=== PATIENT | female | born 1955 | race Caucasian/White ===

== ENCOUNTER 2023-06-03 10:30 | Outpatient (OUT) | payer MEDICARE, OTHER, SELFPAY ==
--- NOTE | 2023-06-03 10:33 | MM_ITS ---
Patient Name: KEELY CHOPRA MR#: [id number] : 1955 Exam Date: 06/03/2023 Ordering Doctor: DR. NANCY SHELL . RADIOLOGY REPORT PROCEDURE: MM TOMOSYNTHESIS SCREENING BI COMPARISON: MG MAMM SCREEN 3D CARSON CAD, 05/07/2021. MG MAMM SCREEN 3D CARSON CAD, 05/12/2022. INDICATIONS: screening Calculator Name NCI Breast Cancer Risk Assessment Tool 5 Year Breast Cancer Risk 2.30% Lifetime Breast Cancer Risk 7.10% Personal Breast Cancer No Personal Ovarian Cancer No Treatments None Family Cancers Grandmother-maternal with breast cancer at age 80; Niece with liver cancer at age 6. LOCATION: [facility] BREAST COMPOSITION: Heterogeneously dense,which may obscure small masses. FINDINGS: DIAGNOSTIC CATEGORY 2--BENIGN FINDING. NO CHANGE FROM COMPARISON. Scattered benign-appearing calcifications are present. Scattered benign-appearing lymph nodes are present. RIGHT BREAST: No significant suspicious finding. LEFT BREAST: No significant suspicious finding. RECOMMENDATIONS: ROUTINE MAMMOGRAM AND CLINICAL EVALUATION IN 12 MONTHS. PLEASE NOTE: A NORMAL MAMMOGRAM DOES NOT EXCLUDE THE POSSIBILITY OF BREAST CANCER. A CLINICALLY SUSPICIOUS PALPABLE LUMP SHOULD BE BIOPSIED. Dictated by: Jaiden Rose MD on 06/03/2023 at 11:34 Approved by: Jaiden Rose MD on 06/03/2023 at 11:35
== END 2023-06-03 10:31 | disposition home or self-care (01) ==
LOC: MAMMO 10:31
PROVIDERS: PCP Nurse Practitioner; Visit Provider Family Medicine
DX: Z12.31 Encounter for screening mammogram for malignant neoplasm of breast (principal); Z80.8 Family history of malignant neoplasm of other organs or systems
CPT/HCPCS: 77063; 77067

== ENCOUNTER 2024-06-08 08:07 | Outpatient (OUT) | payer MEDICARE, OTHER, SELFPAY ==
--- NOTE | 2024-06-08 08:18 | MM_ITS ---
Patient Name: KEELY CHOPRA MR#: [id number] : 1955 Exam Date: 06/08/2024 Ordering Doctor: LE SAUER . RADIOLOGY REPORT PROCEDURE: MM TOMOSYNTHESIS SCREENING BI COMPARISON: MM TOMOSYNTHESIS SCREENING BI, 06/03/2023. MG MAMM SCREEN 3D CARSON CAD, 05/12/2022. MG MAMM SCREEN 3D CARSON CAD, 05/07/2021. MG MAMM CARSON SCRN W CAD DIG, 06/06/2013. INDICATIONS: Screening Calculator Name NCI Breast Cancer Risk Assessment Tool 5 Year Breast Cancer Risk 2.30% Lifetime Breast Cancer Risk 6.70% Personal Breast Cancer No Personal Ovarian Cancer No Treatments None Family Cancers Grandmother-maternal with breast cancer at age 80; Niece with liver cancer at age 6. LOCATION: [facility] BREAST COMPOSITION: The breasts are heterogeneously dense,which may obscure small masses. FINDINGS: DIAGNOSTIC CATEGORY 2--BENIGN FINDING: RIGHT BREAST: No significant suspicious finding. Scattered benign-appearing calcifications are present. No significant change has occurred. LEFT BREAST: No significant suspicious finding. Scattered benign-appearing calcifications are present. No significant change has occurred. RECOMMENDATIONS: ROUTINE MAMMOGRAM AND CLINICAL EVALUATION IN 12 MONTHS. PLEASE NOTE: A NORMAL MAMMOGRAM DOES NOT EXCLUDE THE POSSIBILITY OF BREAST CANCER. A CLINICALLY SUSPICIOUS PALPABLE LUMP SHOULD BE BIOPSIED. Dictated by: Scott Parkinson M.D. on 06/08/2024 at 14:38 Approved by: Scott Parkinson M.D. on 06/08/2024 at 14:47
--- OUTSIDE RECORDS SUMMARY | 2024-06-08 08:20 | XMS_ITS | CCD ---
Author Organization [facility] Care Team Providers Care Presentation Team Member Name Role Phone MEL, DR JOY Benton Consulting Unavailable MEL, DR JOY Benton Attending Unavailable LEAL, DR JOY Benton Admitting Unavailable MEL, DR JOY Benton Primary Care Unavailable FALUN, DR YOSSI Pineda Consulting Unavailable MEL, DR JOY Benton Primary Care Unavailable LEAL, DR JOY Benton Consulting Unavailable MEL, DR JOY Benton Attending Unavailable LEAL, DR JOY Benton Admitting Unavailable Asaad, Imlivier Attending Unavailable Asaad, Imad Admitting Unavailable NO FAMILY, PHYSICIAN Primary Care Unavailable Unavailable Primary Care Provider UnavailCHAPIS Syed Attending Unavailable FELTER, CHAPIS Middleton Attending Unavailable FELTER, CHAPIS Middleton Attending Unavailable FELTER, CHAPIS Middleton Attending Unavailable Tomy, Joan L Attending Unavailable Tomy, Joan L Attending Unavailable Tomy, Joan L Attending Unavailable Tomy, Joan L Attending Unavailable Tomy, Joan L Attending Unavailable Tomy, Joan L Attending Unavailable Tomy, Joan L Attending Unavailable Tomy, Joan L Attending Unavailable Allergies Allergy Classification Reported Allergen(s) Allergy Type Date of Onset Reaction(s) Facility (2 sources) Azithromycin; Translations: [Zithromax] Drug Allergy 06-22-2015 [facility] (6 sources) Azithromycin Drug Allergy 06-15-2023 [facility] Healthcare Work Phone: Medications Current Medications Medication Drug Class(es) Dates Sig (Normalized) Sig (Original) benzonatate 200 mg oral capsule (6 sources) Non-narcotic Antitussive Start: 05-14-2023 take 1 capsule by mouth in the morning, then take 1 capsule by mouth in the evening, then take 1 capsule by mouth at bedtime benzonatate (Tessalon) 200 MG capsule Take 200 mg by mouth in the morning and 200 mg in the evening and 200 mg before bedtime. 05/14/2023 Active bisoprolol fumarate 5 mg / hydroCHLOROthiazide 6.25 mg oral tablet (6 sources) Thiazide Diuretic, beta-Adrenergic James take 1 tablet by mouth in the morning bisoprolol-hydr oCHLOROthiazide (Ziac) 5-6.25 MG tablet Take 1 tablet by mouth in the morning. Active cephalexin 500 mg oral capsule (2 sources) Cephalosporin Antibacterial Start: 01-25-2024 End: 02-04-2024 take 1 capsule by mouth in the morning cephalexin (Keflex) 500 MG capsule Indications: Rash and other nonspecific skin eruption Take 1 capsule (500 mg) by mouth in the morning and 1 capsule (500 mg) before bedtime. Do all this for 10 days. 20 capsule 01/25/2024 02/04/2024 Active desonide 0.5 mg/ml topical cream (11 sources) Corticosteroid Start: 01-25-2024 End: 01-24-2025 desonide (DesOwen) 0.05 % cream Indications: Psoriasis vulgaris (CMS/HCC) Apply topically 2 (two) times a day as needed for irritation (Rash on ears) 60 g 01/25/2024 01/24/2025 Active Start: 07-22-2022 DESONIDE EX Se e Instructions, Refill(s) 0, 0.05% topical cream Apply small amount 3 times a day as needed 07/22/2022 Active fluocinonide 0.5 mg/ml topical solution (11 sources) Corticosteroid Start: 01-25-2024 End: 01-24-2025 fluocinonide (Lidex) 0.05 % external solution Indications: Psoriasis vulgaris (CMS/HCC) Apply topically 2 (two) times a day as needed for rash (to scalp) 60 mL 01/25/2024 01/24/2025 Active Start: 06-15-2023 fluocinonide ( Lidex) 0.05 % cream Indications: Other atopic dermatitis Apply to affected areas, up to twice a day when flared, do not use one the face, groin, or underarms, 30 day supply 60 g 06/15/2023 Active metFORMIN hydrochloride 500 mg oral tablet (6 sources) Biguanide take 1 tablet by mouth in the morning metFORMIN (Glucophage) 500 MG tablet Take 500 mg by mouth in the morning. Active rOPINIRole 0.25 mg oral tablet (6 sources) Nonergot Dopamine Agonist Start: 023 rOPINIRole (Requip) 0.25 MG tablet Take 0.25 mg by mouth 12/18/2022 Active 0.25 mg, 0.5 mg dose 1.5 ml semaglutide 1.34 mg/ml pen injector (6 sources) Start: 023 inject 0.25 mg by subcutaneous injection every week Ozempic, 0.25 or 0.5 MG/DOSE, 2 MG/1.5ML solution pen-injector inject 0.25 milligrams subcutaneously every week 07/10/2022 Active Semaglutide-Weight Management 1 MG/0.5ML solution auto-injector (6 sources) Start: 024 Semaglutide-Weight Management 1 MG/0.5ML solution auto-injector Inject 1.2 mg under the skin 06/01/2023 Active sertraline 100 mg oral tablet (6 sources) Serotonin Reuptake Inhibitor Start: 023 sertraline (Zoloft) 100 MG tablet Take 100 mg by mouth 12/01/2022 Active Problems Active Problems Problem Classification Problem Date Documented Date Episodic/Chronic Disorders of lipid metabolism (5 sources) Pure hypercholesterolemia, unspecified; Translations: [PURE HYPERCHOLESTEROLEMIA UNSPEC] Onset: 2 Chronic Essential hypertension (1 source) Essential (primary) hypertension; Translations: [ESSENTIAL PRIMARY HYPERTENSION] Onset: 2 Chronic Other inflammatory condition of skin (4 sources) Psoriasis vulgaris; Translations: [Psoriasis vulgaris] 03-21-2024 Chronic Other screening for suspected conditions (not mental disorders or infectious disease) (1 source) Encounter for screening mammogram for malignant neoplasm of breast; Translations: [ENC SCR MAMMO MALIG NEOPLASM BREAST] Onset: 2 Episodic Other skin disorders (4 sources) Eruption; Translations: [Rash and other nonspecific skin eruption] 03-21-2024 Episodic Residual codes; unclassified (1 source) Family history of malignant neoplasm of breast; Translations: [FAMILY HX MALIG NEOPLASM OF BREAST] Onset: 2 Episodic Residual codes; unclassified (1 source) Family history of malignant neoplasm of other organs or systems; Translations: [FAM HX MALIG NEOPLASM OTH ORGN/SYS] Onset: 2 Episodic Past or Other Problems Problem Classification Problem Date Documented Da te Episodic/Chronic Malaise and fatigue (4 sources) Other fatigue; Translations: [OTHER FATIGUE] Onset: 11-15-2021 Episodic Neoplasms of unspecified nature or uncertain behavior (2 sources) Neoplastic disease; Translations: [Neoplasm of unspecified behavior of bone, soft tissue, and skin] 01-25-2024 Episodic Other and unspecified benign neoplasm (2 sources) Melanocytic nevus of trunk; Translations: [Melanocytic nevi of trunk] 01-25-2024 Episodic Other skin disorders (2 sources) Seborrheic keratosis; Translations: [Other seborrheic keratosis] 01-25-2024 Episodic Other skin disorders (2 sources) Lentiginosis; Translations: [Other melanin hyperpigmentation] 01-25-2024 Episodic Other skin disorders (2 sources) Inflamed seborrheic keratosis; Translations: [Inflamed seborrheic keratosis] 01-25-2024 Episodic Results Test Name Value Interpretation Reference Range Facility Ambulatory Visit Summaryon 1 06-11-2023 Ambulatory Visit Summary Ambulatory Visit Summary MANDY CHOPRA :1955 Visit Date:04/11/2024 Ambulatory Visit Instructions Your Diagnosis Non-smoker BMI 50.0-59.9, adult, Body mass index [BMI] 50.0-59.9, adult Morbid obesity with BMI of 50.0-59.9, adult Your Care Team Attending Physician - Joan Montano Primary Care Physician - Joan Montano This Is Your Medications List alprazolam (alprazolam 0.25 mg Tab) bisoprolol-hydrochlorot hiazide (bisoprolol-hydrochloro thiazide 5 mg-6.25 mg Tab) ropinirole (ropinirole 0.25 mg Tab) sertraline (sertraline 100 mg Tab) Procedures Performed Colonoscopy (05/18/2013), Appendectomy, Arthroscopy, Biopsy of breast, Cataracts, LEXI BSO - Total abdominal hysterectomy and bilateral salpingo-oophorectomy. What to do next Scheduled Follow-Up Appointments Thursday 8:20 AM EST With: Joan Montano Where: [facility] [address] [place] [address]- Medications What How Much When Instructions Unchanged alprazolam (alprazolam 0.25 mg Tab) 0.25 Milligram By Mouth Every day prn Dx F41.9 Unchanged bisoprolol-hydrochlorot hiazide (bisoprolol-hydrochloro thiazide 5 mg-6.25 mg Tab) 1 Tablets By Mouth Every day Unchanged ropinirole (ropinirole 0.25 mg Tab) See instructions take 1 tablet by mouth at bedtime Unchanged sertraline (sertraline 100 mg Tab) 100 Milligram By Mouth Every day Allergies Zithromax (Unknown) Problems Ongoing - Any problem that you are currently receiving treatment for. Adult BMI 50.0-59.9 kg/sq m Anxiety Blurry vision, right eye Encounter for weight management Facial swelling Fluid level behind tympanic membrane of both ears H/o Lyme disease HTN - Hypertension Hx of migraines Major depressive disorder, recurrent episode, moderate Morbid obesity Restless leg syndrome Right knee pain Sinusitis Swollen lymph nodes Ulcer of buccal mucosa Historical - Any problem that you are no longer receiving treatment for. Lyme disease Migraine Morbid obesity Restless legs syndrome Patient Survey You may receive a survey via text or e-mail asking about your office visit. Please share your experience with us by completing your survey. We appreciate your feedback and thank you for choosing us for your care. Rita [facility] Family Medicine Office/Clini c Noteon 04-11-2024 Family Medicine Office/Clinic Note Family Medicine Office/Clinic Note HPI Staff Pt presents today for 7m weight management follow up. Started on semaglutide stopped 5-6 months ago she wants to back on this Chest pain:No Tremors:No Headaches:No Heart fluttering:No Blurred Vision:No Starting Weight:259.16lbs Weight last visit:257.84lbs Weight this visit: Pt also due for repeat A1C today. (Unable to find previous A1C in chart) No labs on [facility] since 2021 Alprazolam med agreement needs updated. (Last one signed in August)S She thinks she has a sinus infection now Onset: 4 days ago Headache- yes Earache- no Sinus Congestion- yes Rhinorrhea- yes Sore Throat- no Cough- no wheezing- no Dyspnea on exertion- no Orthopnea- Trouble laying flat/breathing through nose: yes Lung Hx (asthma, recurring bronchitis/chest colds, COPD)- no Fevers/chills- no GI symptoms- no Tried0 Tylenol- did not seem to help at all History of Present Illness pt presents today to discuss weight management. also has sinus symptoms Review of Systems PHQ Score Initial Depression Screen Score: 0 SCORE Physical Exam General: alert, no acute distress ENMT: oral mucosa moist, no pharyngeal erythema or exudate,nasal draniage and sinus pressure Cardiovascular: regular rate and rhythm, normal peripheral perfusion Respiratory: Lungs CTA, respirations non labored Extremities: no deformity, no trauma Neurological: oriented x 4, LOC appropriate for age, CN II-XII intact, motor strength equal & normal bilaterally, speech normal Assessment/Plan 1. Sinusitis (J32.9: Chronic sinusitis, unspecified) pt c/o nasal drainage and sinus pressure. will treat with augmentin 2. Non-smoker (Z78.9: Other specified health status) continue not smoking 3. BMI 50.0-59.9, adult, (Z68.43: Body mass index [BMI] 50.0-59.9, adult)Body mass index [BMI] 50.0-59.9, adult sent order for semaglutide .6 to [facility]. will increase to next does after 1 month. RTC 3 months 4. Morbid obesity with BMI of 50.0-59.9, adult (E66.01: Morbid (severe) obesity due to excess calories) see above Orders: amoxicillin-clavulanate , 1 tab(s), Oral, q12hr for 7 day(s), 14 tab(s), Refill(s) 0, [facility] #[id number], 153, cm, 04/11/24 8:35:00 EST, Height/Length Dosing, 122.5, kg, 04/11/24 8:35:00 EST, Weight Dosing Follow-up No qualifying data available Problem List/Past Medical History Ongoing Adult BMI 50.0-59.9 kg/sq m Anxiety Blurry vision, right eye Encounter for weight management Facial swelling Fluid level behind tympanic membrane of both ears H/o Lyme disease HTN - Hypertension Hx of migraines Major depressive disorder, recurrent episode, moderate Morbid obesity Restless leg syndrome Right knee pain Sinusitis Swollen lymph nodes Ulcer of buccal mucosa Historical Lyme disease Migraine Morbid obesity Restless legs syndrome Procedure/Surgical History Colonoscopy (05/18/2013), Appendectomy, Arthroscopy, Biopsy of breast, Cataracts, LEXI BSO - Total abdominal hysterectomy and bilateral salpingo-oophorectomy. Medications alprazolam 0.25 mg Tab, 0.25 mg, Oral, Daily amoxicillin-clavulanate 875 mg-125 mg Tab, 1 tab(s), Oral, q12hr bisoprolol-hydrochlorot hiazide 5 mg-6.25 mg Tab, 1 tab(s), Oral, Daily, 4 refills ropinirole 0.25 mg Tab, See Instructions sertraline 100 mg Tab, 100 mg, Oral, Daily, 1 refills Allergies Zithromax (Unknown) Social History Alcohol - Denies Alcohol Use, 08/01/2022 Never., 04/06/2024 Substance Abuse - Denies Substance Abuse, 08/01/2022 Never., 04/06/2024 Tobacco Never (less than 100 in lifetime) Tobacco Use:., 04/11/2024 Family History Alcoholism: Father. Diabetes mellitus type 2: Brother. Hypertension: Father and Grandparent. Stroke: Grandparent. Immunizations Vaccine Date Status Comments influenza virus vaccine, inactivated 03/25/2024 Recorded canakinumab 04/26/2023 Recorded arexvy (RSV) SARS-CoV-2 mRNA (tozinameran 5y-11y) vac 04/01/2023 Recorded comirnaty pfizer influenza virus vaccine, inactivated 04/01/2023 Recorded fluad quad influenza virus vaccine, inactivated 02/25/2022 Recorded SARS-CoV-2 (COVID-19) [id number].[id number] 02/25/2022 Recorded SARSCoV2 mRNA(jseqomsve-udru-zwz ros) vac 10/08/2021 Recorded influenza virus vaccine, inactivated 05/20/2021 Recorded SARS-CoV-2 (COVID-19) mRNA BNT-162b2 vax 02/14/2021 Recorded SARS-CoV-2 (COVID-19) mRNA BNT-162b2 vax 08/04/2020 Recorded SARS-CoV-2 (COVID-19) mRNA BNT-162b2 vax 07/14/2020 Recorded pneumococcal 13-valent vaccine 03/14/2020 Recorded influenza virus vaccine, inactivated 03/14/2020 Recorded zoster vaccine, inactivated 06/23/2019 Recorded influenza virus vaccine, inactivated 05/31/2019 Recorded zoster vaccine, inactivated 03/28/2019 Recorded Normal [facility] Comment on above: Result Comment: Elec tronically Signed By: Joan Montano.sandra\Date and Time Signed: 04/11/24 12:35 EST No Panel Informationon 01-24 Type of biopsy: tangential Informed consent: discussed and consent obtained Informed consent comment: The risks and benefits of the biopsy were discussed. Risks include but are not limited to bleeding, infection, scarring, pain, and nerve damage. An opportunity to ask questions prior to the procedure was permitted and all questions were answered. Patient was prepped and draped in usual sterile fashion: area cleansed with alcohol. Anesthesia: the lesion was anesthetized in a standard fashion Anesthetic: 1% lidocaine w/ epinephrine 1-100,000 buffered w/ 8.4% NaHCO3 Instrument used: DermaBlade Hemostasis achieved with: electrodesiccation Outcome: patient tolerated procedure well Outcome comment: The specimen was placed in a prelabeled formalin container to be sent for pathology Post-procedure details: sterile dressing applied and wound care instructions given Post-procedure details comment: Emphasized need to contact clinic for any signs of infection, uncontrollable bleeding, or complications. Dressing type: bandage Additional details: Photo taken yes Amount of lidocaine used: 0.3 cc [facility] Type of biopsy: tangential Informed consent: discussed and consent obtained Informed consent comment: The risks and benefits of the biopsy were discussed. Risks include but are not limited to bleeding, infection, scarring, pain, and nerve damage. An opportunity to ask questions prior to the procedure was permitted and all questions were answered. Patient was prepped and draped in usual sterile fashion: area cleansed with alcohol. Anesthesia: the lesion was anesthetized in a standard fashion Anesthetic: 1% lidocaine w/ epinephrine 1-100,000 buffered w/ 8.4% NaHCO3 Instrument used: DermaBlade Hemostasis achieved with: electrodesiccation Outcome: patient tolerated procedure well Outcome comment: The specimen was placed in a prelabeled formalin container to be sent for pathology Post-procedure details: sterile dressing applied and wound care instructions given Post-procedure details comment: Emphasized need to contact clinic for any signs of infection, uncontrollable bleeding, or complications. Dressing type: bandage Additional details: Photo taken yes Amount of lidocaine used: 0.5 cc [facility] Family Medicine Office/Clini c Noteon 09-02-2023 Family Medicine Office/Clinic Note HPI Staff Mandy is a 68 year old female presenting for 3 month follow up Weight management: Ozempic Sleeping well:Yes, 6-8 hours Chest pain:No Tremors:No Headaches:No Heart fluttering:No Blurred Vision:No Beginning weight: 259.16 Previous weight: Today's weight: Questions/Concerns: needs refill on Alprazolam History of Present Illness pt presents today for weight management Review of Systems PHQ Score Initial Depression Screen Score: 0 SCORE Physical Exam Vitals & Measurements HR: 80(Peripheral) RR: 18 BP: 124/78 SpO2: 98% HT: 60 in HT: 153.0 cm WT: 117.2 kg WT: 257.84 lb BMI: 50.07 General: alert, no acute distress ENMT: oral mucosa moist, no pharyngeal erythema or exudate Cardiovascular: regular rate and rhythm, normal peripheral perfusion Respiratory: Lungs CTA, respirations non labored Extremities: no deformity, no trauma Neurological: oriented x 4, LOC appropriate for age, CN II-XII intact, motor strength equal & normal bilaterally, speech normal Assessment/Plan 1. Encounter for weight management (Z76.89: Persons encountering health services in other specified circumstances) pt presents today for weight management. pt is down another 2 pounds. is starting to get discouraged. will increase dose to 1.8 will send order to [facility]. RTC 3 months. will check HGBA1C at next visit. 2. Adult BMI 50.0-59.9 kg/sq m (Z68.43: Body mass index [BMI] 50.0-59.9, adult) pt is watching her diet trying to be active Follow-up No qualifying data available Problem List/Past Medical History Ongoing Adult BMI 50.0-59.9 kg/sq m Anxiety Blurry vision, right eye Encounter for weight management Facial swelling Fluid level behind tympanic membrane of both ears H/o Lyme disease HTN - Hypertension Hx of migraines Major depressive disorder, recurrent episode, moderate Morbid obesity Restless leg syndrome Right knee pain Sinusitis Swollen lymph nodes Ulcer of buccal mucosa Historical Lyme disease Migraine Morbid obesity Restless legs syndrome Procedure/Surgical History Colonoscopy (05/18/2013), Appendectomy, Arthroscopy, Biopsy of breast, LEXI BSO - Total abdominal hysterectomy and bilateral salpingo-oophorectomy. Medications alprazolam, 0.25 mg, Oral, Daily bisoprolol-hydrochlorot hiazide 5 mg-6.25 mg Tab, 1 tab(s), Oral, Daily nabumetone ropinirole 0.25 mg Tab, 0.25 mg, Oral, Bedtime, 1 refills semaglutide 1 mg/0.5 mL (1 mg dose) subcutaneous solution, 1.2 mg, SubCutaneous, qWeek sertraline 100 mg Tab, 100 mg, Oral, Daily, 1 refills Allergies Zithromax (Unknown) Social History Alcohol - Denies Alcohol Use, 08/01/2022 Substance Abuse - Denies Substance Abuse, 08/01/2022 Tobacco Never (less than 100 in lifetime) Tobacco Use:. Never Smokeless Tobacco Use:. Household tobacco concerns: No., 09/02/2023 Family History Alcoholism: Father. Diabetes mellitus type 2: Brother. Hypertension: Father and Grandparent. Stroke: Grandparent. Immunizations Vaccine Date Status Comments canakinumab 04/26/2023 Recorded arexvy (RSV) SARS-CoV-2 mRNA (tozinameran 5y-11y) vac 04/01/2023 Recorded comirnaty pfizer influenza virus vaccine, inactivated 04/01/2023 Recorded fluad quad influenza virus vaccine, inactivated 02/25/2022 Recorded SARS-CoV-2 (COVID-19) [id number] 02/25/2022 Recorded SARSCoV2 mRNA(gqvtpipua-zrpg-mrz ros) vac 10/08/2021 Recorded influenza virus vaccine, inactivated 05/20/2021 Recorded SARS-CoV-2 (COVID-19) mRNA BNT-162b2 vax 02/14/2021 Recorded SARS-CoV-2 (COVID-19) mRNA BNT-162b2 vax 08/04/2020 Recorded SARS-CoV-2 (COVID-19) mRNA BNT-162b2 vax 07/14/2020 Recorded pneumococcal 13-valent vaccine 03/14/2020 Recorded influenza virus vaccine, inactivated 03/14/2020 Recorded zoster vaccine, inactivated 06/23/2019 Recorded influenza virus vaccine, inactivated 05/31/2019 Recorded zoster vaccine, inactivated 03/28/2019 Recorded Normal [facility] Comment on above: Result Comment: Elec tronically Signed By: Joan Montano\.br\Date and Time Signed: 09/02/23 08:43 EDT Medication Consenton Medication Consent [id number]#1.00T IFF [facility] Retail - Clinical Noteon Retail - Clinical Note [id number]#1.00T IFF [facility] Pathology Noteon 07-07-2023 Pathology Note [id number] IFF [facility] Consultation Noteon 07-06-19 Consultation Note [id number] IFF [facility] Outside Mammographyon 2023 Outside Mammography [id number]#1.00TI FF [facility] Ambulatory Visit Summaryon 0 06-01-2023 Ambulatory Visit Summary MANDY CHOPRA :1955 Visit Date:06/01/2023 Ambulatory Visit Instructions Your Diagnosis Encounter for weight management Major depressive disorder, recurrent episode, moderate BMI 50.0-59.9, adult Non-smoker Your Care Team Attending Physician - Joan Montano Primary Care Physician - Joan Montano This Is Your Medications List alprazolam amoxicillin-clavulanate (amoxicillin-clavulanat e 875 mg-125 mg Tab) bisoprolol-hydrochlorot hiazide (bisoprolol-hydrochloro thiazide 5 mg-6.25 mg Tab) nabumetone ropinirole (ropinirole 0.25 mg Tab) semaglutide (semaglutide 1 mg/0.5 mL (1 mg dose) subcutaneous solution) sertraline (sertraline 100 mg Tab) Procedures Performed Colonoscopy (05/18/2013), Appendectomy, Arthroscopy, Biopsy of breast, LEXI BSO - Total abdominal hysterectomy and bilateral salpingo-oophorectomy. Discharge Vitals Temperature (Tympanic) 36.3 ?C Heart Rate (Peripheral) 80 Respiratory Rate 18 Blood Pressure 122/78 Height 153.0 cm Height 60 in Weight 117.8 kg Weight 259.16 lb BMI 50.32 What to do next Scheduled Follow-Up Appointments Thursday 11:00 AM EST Where: [facility] Ambulatory Visit Summary MANDY CHOPRA :1955 Visit Date:06/01/2023 Ambulatory Visit Instructions Your Diagnosis Major depressive disorder, recurrent episode, moderate BMI 50.0-59.9, adult Non-smoker Your Care Team Attending Physician - Joan Montano Primary Care Physician - Joan Montano This Is Your Medications List alprazolam bisoprolol-hydrochlorot hiazide (bisoprolol-hydrochloro thiazide 5 mg-6.25 mg Tab) nabumetone ropinirole (ropinirole 0.25 mg Tab) sertraline (sertraline 100 mg Tab) Procedures Performed Colonoscopy (05/18/2013), Appendectomy, Arthroscopy, Biopsy of breast, LEXI BSO - Total abdominal hysterectomy and bilateral salpingo-oophorectomy. Discharge Vitals Temperature (Tympanic) 36.3 ?C Heart Rate (Peripheral) 80 Respiratory Rate 18 Blood Pressure 122/78 Height 153.0 cm Height 60 in Weight 117.8 kg Weight 259.16 lb BMI 50.32 What to do next Scheduled Follow-Up Appointments Thursday 11:00 AM EST Where: [facility] Family Medicine Office/Clini c Noteon 06-01-2023 Family Medicine Office/Clinic Note HPI Staff Mandy is a 67 year old female presenting Follow up for Mental Status: Medication adherence- Yes, takes medication as prescribed Medication refill needed: _ Suicidal thoughts-Not at this time Most recent ELIZABETH: 4 Most recent PHQ: 2 Patient is here for follow up on hypertension. How often are you checking your blood pressure? no What are your average readings? Pt would like to discuss weight loss medication she lost her prescription insurance and had to stop taking Ozempic due to costing over 1300 a month. Would like to discuss phentermine/ Ozempic through [facility]. MARIA GUADALUPE 05/14/23 pt was seen for sinusitis. a week later on 05/21/23 was positive for coivd, currently is still having sinus congestion, bilateral ear popping mostly in right ear. Post nasal drip/sore throat. Needs refill on Ropinirole History of Present Illness pt presents today for follow up on BP, anxiety and weight loss. also still having sinus congestion Review of Systems PHQ Score Initial Depression Screen Score: 0 SCORE ROS - Provider Constitutional: no fever, no chills, no sweats, no fatigue Respiratory: no shortness of breath, no cough, no orthopnea, no wheezing. Cardiovascular: no chest pain, no palpitations, no edema. Neurologic: no headache, no dizziness, no numbness, no weakness. Physical Exam Vitals & Measurements T: 36.3 ?C(Tympanic) HR: 80(Peripheral) RR: 18 BP: 122/78 SpO2: 99% HT: 60 in HT: 153.0 cm WT: 117.8 kg WT: 259.16 lb BMI: 50.32 General: alert, no acute distress ENMT: oral mucosa moist, no pharyngeal erythema or exudate Cardiovascular: regular rate and rhythm, normal peripheral perfusion Respiratory: Lungs CTA, respirations non labored Extremities: no deformity, no trauma Neurological: oriented x 4, LOC appropriate for age, CN II-XII intact, motor strength equal & normal bilaterally, speech normal Assessment/Plan 1. Encounter for weight management (Z76.89: Persons encountering health services in other specified circumstances) pt has been on ozempic 0.5mg since september. shelost her prescription coverage. would like to purchase through [facility]. will fax order for 1.2 mg dose. with 2 refills. pt will return in 3 months 2. Major depressive disorder, recurrent episode, moderate (F33.1: Major depressive disorder, recurrent, moderate) ELIZABETH and PQH9 much improved. does not need refills at this time. 3. BMI 50.0-59.9, adult (Z68.43: Body mass index [BMI] 50.0-59.9, adult) BMI education complete 4. Non-smoker (Z78.9: Other specified health status) continue not smoking Orders: amoxicillin-clavulanate , 1 tab(s), Oral, q12hr for 7 day(s), 14 tab(s), Refill(s) 0, [facility] #[id number], 153, cm, 06/01/23 9:15:00 EST, Height/Length Dosing, 117.8, kg, 06/01/23 9:15:00 EST, Weight Dosing bisoprolol-hydrochlorot hiazide, 1 tab(s), Oral, Daily, 90 tab(s), Refill(s) 3, [facility] #[id number], 153, cm, 01/21/23 10:12:00 EDT, Height/Length Dosing, 114.8, kg, 01/21/23 10:12:00 EDT, Weight Dosing nirmatrelvir-ritonavir, See Instructions, Oral, BID, 30 tab(s), Refill(s) 0, 3 Tablets twice daily for 5 days, [facility] #[id number], 153, cm, 05/14/23 9:40:00 EST, Height/Length Dosing, 117.6, kg, 05/14/23 9:40:00 EST, Weight Dosing ropinirole, 0.25 mg, Oral, Bedtime, # 90 tab(s), Refills(s) 0, Pharmacy: [facility] #[id number], 157.5, cm, 09/09/22 8:56:00 EDT, Height/Length Dosing, 116.8, kg, 09/09/22 8:56:00 EDT, Weight Dosing ropinirole, 0.25 mg, Oral, Bedtime, # 90 tab(s), Refills(s) 1, Pharmacy: [facility] #[id number], 153, cm, 06/01/23 9:15:00 EST, Height/Length Dosing, 117.8, kg, 06/01/23 9:15:00 EST, Weight Dosing semaglutide, 0.5 mg, SubCutaneous, qWeek, 0.5mg SQ weekly rotate injection sites, # 1 EA, Refills(s) 2, Pharmacy: [facility] #[id number], 153, cm, 01/21/23 10:12:00 EDT, Height/Length Dosing, 114.8, kg, 01/21/23 10:12:00 EDT, Weight Dosing Follow-up No qualifying data available Problem List/Past Medical History Ongoing Anxiety Blurry vision, right eye Encounter for weight management Facial swelling Fluid level behind tympanic membrane of both ears H/o Lyme disease HTN - Hypertension Hx of migraines Major depressive disorder, recurrent episode, moderate Morbid obesity Restless leg syndrome Right knee pain Sinusitis Swollen lymph nodes Ulcer of buccal mucosa Historical Lyme disease Migraine Morbid obesity Restless legs syndrome Procedure/Surgical History Colonoscopy (05/18/2013), Appendectomy, Arthroscopy, Biopsy of breast, LEXI BSO - Total abdominal hysterectomy and bilateral salpingo-oophorectomy. Medications alprazolam, 0.25 mg, Oral, Daily amoxicillin-clavulanate 875 mg-125 mg Tab, 1 tab(s), Oral, q12hr bisoprolol-hydrochlorot hiazide 5 mg-6.25 mg Tab, 1 tab(s), Oral, Daily nabumetone ropinirole 0.25 mg Tab, 0.25 mg, Oral, Bedtime, 1 refills semaglutide 1 mg/0.5 mL (1 mg dose) subcutaneous solution, 1.2 mg, SubCutaneous, qWeek sertraline 100 mg Tab, 100 mg, Oral, Daily, 1 refills Allergies Zithr (more content not included)... Normal [facility] Comment on above: Result Comment: Elec tronically Signed By: Joan Montano\.br\Date and Time Signed: 06/01/23 10:30 EST Retail - Clinical Noteon Retail - Clinical Note [id number] IFF Normal [facility] Pre-Visit Planningon 024 Pre-Visit Planning - From: Fanta Patton To: Joan Montano; Sent: 05/22/2023 12:27:58 EST Subject: Pre-Visit Planning Due Date/Time: 05/22/2023 12:27:00 EST Caller Name: MANDY CHOPRA; Caller Number: H Nikko Franco. During an a pre-visit planning chart review, I noted the following documentation in the medical record: Current Problem List: Anxiety. Current Medication List: alprazolam and sertraline. PHQ-9 Score: =7 on 12/22/2022. Based on your medical judgment can you please clarify if any of the following conditions are present? I can update the Chronic Problem List with your response if you would like. Major Depressive Disorder, Single Episode ? Major depressive disorder, single episode, mild ? Major depressive disorder, single episode, moderate ? Major depressive disorder, single episode, severe without mention of psychotic behavior ? Major depressive disorder, single episode, severe specified as with psychotic behavior ? Major depressive disorder, single episode, in partial remission ? Major depressive disorder, single episode in full remission Major Depressive Disorder, Recurrent ? Major depressive disorder, recurrent, mild ? Major depressive disorder, recurrent, moderate ? Major depressive disorder, recurrent, severe without mention of psychotic behavior ? Major depressive disorder, recurrent, severe specified as with psychotic behavior ? Major depressive disorder, recurrent, in partial remission ? Major depressive disorder, recurrent, in full remission -Other (Please Specify): In responding to this request, please exercise your independent professional judgement. The fact that a question is asked does not imply that any particular answer is desired or expected. If you have any questions, please feel free to contact me at extension [phone]. Thank you! Fanta Patton LPN From: Joan Montano To: Fanta Patton; Sent: 05/25/2023 08:22:30 EST Subject: RE: Pre-Visit Planning Caller Name: MANDY CHOPRA; Caller Number: H major depressive disorder, recurrent moderate Normal [facility] Ambulatory Visit Summaryon 1 07-15-2022 Ambulatory Visit Summary MANDY CHOPRA :1955 Visit Date:05/14/2023 Ambulatory Visit Instructions Your Diagnosis Sinusitis BMI 50.0-59.9, adult Class 3 obesity Nonsmoker Your Care Team Attending Physician - Joan Montano Primary Care Physician - Joan Montano This Is Your Medications List alprazolam amoxicillin-clavulanate (Augmentin 875 mg oral tablet) benzonatate (benzonatate 200 mg oral capsule) bisoprolol-hydrochlorot hiazide (bisoprolol-hydrochloro thiazide 5 mg-6.25 mg Tab) bisoprolol-hydrochlorot hiazide (bisoprolol-hydrochloro thiazide 5 mg-6.25 mg Tab) methylPREDNISolone (Medrol 4 mg Tab) nabumetone ropinirole (ropinirole 0.25 mg Tab) semaglutide (Ozempic 2 mg/3 mL (0.25 mg or 0.5 mg dose) subcutaneous solution) sertraline (sertraline 100 mg Tab) Procedures Performed Colonoscopy (05/18/2013), Appendectomy, Arthroscopy, Biopsy of breast, LEXI BSO - Total abdominal hysterectomy and bilateral salpingo-oophorectomy. Discharge Vitals Temperature (Temporal Artery) 37.2 ?C Heart Rate (Peripheral) 64 Respiratory Rate 14 Blood Pressure 132/80 Height 153 cm Height 60 in Weight 117.6 kg Weight 258.72 lb BMI 50.24 What to do next Scheduled Follow-Up Appointments Thursday 8:40 AM EST With: Joan Montano Where: [facility] [place] Normal [facility] Family Medicine Office/Clini c Noteon 05-14-2023 Family Medicine Office/Clinic Note HPI Staff Mandy is a 67 year old female presenting for acute sick visit Respiratory C/O: Onset: Body aches: yes Chest congestion: no Chills: yes Cough: yes Sputum production: yes little bit colored Sore throat: yes Ear complaints: yes Eye itching/watering: yes Fever: no Headache: yes Nasal congestion: yes Nasal discharge: yes clear Poor appetite: yes Reduced activity: yes Sinus pain/pressure: yes Sneezing: yes Wheezing: no Ill contacts: yes ( seen here) Remedies tried: mucinex Questions/Concerns: did get short of breath walking in here today 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 She just wants us aware History of Present Illness pt presents today with URI symptoms Review of Systems PHQ Score Initial Depression Screen Score: 0 SCORE ROS - Provider Constitutional: no fever, no chills, no sweats, no fatigue Respiratory: yes shortness of breath, yes cough, no orthopnea, no wheezing. congestion sore throat Cardiovascular: no chest pain, no palpitations, no edema. Neurologic: no headache, no dizziness, no numbness, no weakness. Physical Exam Vitals & Measurements T: 37.2 ?C(Temporal Artery) HR: 64(Peripheral) RR: 14 BP: 132/80 SpO2: 100% HT: 60 in HT: 153 cm WT: 117.6 kg WT: 258.72 lb BMI: 50.24 ROS - Provider Constitutional: no fever, no chills, no sweats, no fatigue Respiratory: no shortness of breath, no cough, no orthopnea, no wheezing. Cardiovascular: no chest pain, no palpitations, no edema. Neurologic: no headache, no dizziness, no numbness, no weakness. nasal turbinates red and swollen, sinus tenderness, CARSON TM moderate clear fluid Assessment/Plan 1. Sinusitis (J32.9: Chronic sinusitis, unspecified) pt presents today with nasal congestion, sore throat, cough sinus tenderness. will send augmentin and medrol dose pack. jennifer goss. all question answered. RTC as needed Ordered: amoxicillin-clavulanate , = 1 tab(s), Oral, q12hr, X 7 day(s), # 14 tab(s), Refills(s) 0, Pharmacy: [facility] #[id number], 153, cm, 05/14/23 9:40:00 EST, Height/Length Dosing, 117.6, kg, 05/14/23 9:40:00 EST, Weight Dosing benzonatate, 200 mg = 1 cap(s), Oral, TID, X 7 day(s), # 21 cap(s), Refills(s) 0, Pharmacy: [facility] #[id number], 153, cm, 05/14/23 9:40:00 EST, Height/Length Dosing, 117.6, kg, 05/14/23 9:40:00 EST, Weight Dosing methylPREDNISolone, = 1 packet(s), Oral, As Directed, as directed on package labeling, X 6 day(s), # 21 tab(s), Refills(s) 0, Pharmacy: [facility] #[id number], 153, cm, 05/14/23 9:40:00 EST, Height/Length Dosing, 117.6, kg, 05/14/23 9:40:00 EST, Weight Dosing 2. BMI 50.0-59.9, adult (Z68.43: Body mass index [BMI] 50.0-59.9, adult) BMI education complete Ordered: amoxicillin-clavulanate , = 1 tab(s), Oral, q12hr, X 7 day(s), # 14 tab(s), Refills(s) 0, Pharmacy: [facility] #[id number], 153, cm, 05/14/23 9:40:00 EST, Height/Length Dosing, 117.6, kg, 05/14/23 9:40:00 EST, Weight Dosing benzonatate, 200 mg = 1 cap(s), Oral, TID, X 7 day(s), # 21 cap(s), Refills(s) 0, Pharmacy: [facility] #[id number], 153, cm, 05/14/23 9:40:00 EST, Height/Length Dosing, 117.6, kg, 05/14/23 9:40:00 EST, Weight Dosing methylPREDNISolone, = 1 packet(s), Oral, As Directed, as directed on package labeling, X 6 day(s), # 21 tab(s), Refills(s) 0, Pharmacy: [facility] #[id number], 153, cm, 05/14/23 9:40:00 EST, Height/Length Dosing, 117.6, kg, 05/14/23 9:40:00 EST, Weight Dosing Body Mass Index (BMI) documented 3008F Current tobacco non-user 1036F Depression Screening Negative 3352F Influenza immunization administered or previously received 4274F Most recent diastolic blood pressure 80-89 mm Hg 3079F Patient screen for fall risk: no falls in last year or 1 fall with no injury in last year 1101F Systolic BP 130-139 mm Hg (Most Recent) 3075F 3. Class 3 obesity (E66.01: Morbid (severe) obesity due to excess calories) see above Ordered: amoxicillin-clavulanate , = 1 tab(s), Oral, q12hr, X 7 day(s), # 14 tab(s), Refills(s) 0, Pharmacy: [facility] #[id number], 153, cm, 05/14/23 9:40:00 EST, Height/Length Dosing, 117.6, kg, 05/14/23 9:40:00 EST, Weight Dosing benzonatate, 200 mg = 1 cap(s), Oral, TID, X 7 day(s), # 21 cap(s), Refills(s) 0, Pharmacy: [facility] #[id number], 153, cm, 05/14/23 9:40:00 EST, Height/Length Dosing, 117.6, kg, 05/14/23 9:40:00 EST, Weight Dosing methylPREDNISolone, = 1 packet(s), Oral, As Directed, as directed on package labeling, X 6 day(s), # 21 tab(s), Refills(s) 0, [facility]acy: [facility] #[id number], 153, cm, 05/14/23 9:40:00 EST, Height/Length Dosing, 117.6, kg, 05/14/23 9:40:00 EST, Weight Dosing Body Mass Index (BMI) documented 3008F Current tobacco non-user 1036F Depression Screening Negative 3352F Influenza immunization administered or previously received 4274F Most recent diastolic blood pressure 80-89 mm Hg 3079F Patient screen for fall risk: no falls in last year or 1 fall with no injury in last year 1101F Sys (more content not included)... Normal [facility] Comment on above: Result Comment: Elec tronically Signed By: Joan Montano\.br\Date and Time Signed: 05/14/23 09:56 EST Immunization Recordson 04-27 Immunization Records [id number] IFF Normal [facility] CBC AUTO DIFFon 05-12-2022 BASO # 0.0 103/ul Normal 0.0-0.1 [facility] Comment on above: Performed By: #### C BC #### [facility] [address] [place] [address] Dr. Nuha Marinelli Basophils/100 WBC (Bld) 0.5 % Normal 0.2-2.0 [facility] Comment on above: Performed By: #### C BC #### [facility] [address] [place] [address] Dr. Nuha Marinelli EO # 0.2 103/ul Normal 0.0-0.7 [facility] Comment on above: Performed By: #### C BC #### [facility] [address] [place] [address] Dr. Nuha Marinelli Eosinophils/100 WBC (Bld) 3.3 % Normal 0.9-7.0 [facility] Comment on above: Performed By: #### C BC #### [facility] [address] [place] [address] Dr. Nuha Marinelli Erythrocyte distribution width (RBC) [Ratio] 13.6 % Normal 11.0-15.0 [facility] Comment on above: Performed By: #### C BC #### [facility] [address] [place] [address] Dr. Nuha Marinelli Hematocrit (Bld) [Volume fraction] 41.0 % Normal 36.0-48.0 [facility] Comment on above: Performed By: #### C BC #### [facility] [address] [place] [address] Dr. Nuha Marinelli Hemoglobin (Bld) [Mass/Vol] 13.6 g/dL Normal 12.0-16.0 [facility] Comment on above: Performed By: #### C BC #### [facility] [address] [place] [address] Dr. Nuha Marinelli IG # 0.03 10e3/ul Normal 0.00-0.03 [facility] Comment on above: Performed By: #### C BC #### [facility] [address] [place] [address] Dr. Nuha Marinelli IG % 0.4 % Normal 0.0-0.5 [facility] Comment on above: Performed By: #### C BC #### [facility] [address] [place] [address] Dr. Nuha Marinelli LYMPH # 2.3 103/ul Normal 1.2-3.8 [facility] Comment on above: Performed By: #### C BC #### [facility] [address] [place] [address] Dr. Nuha Marinelli Lymphocytes/100 WBC (Bld) 30.7 % Normal 20.5-60.0 [facility] Comment on above: Performed By: #### C BC #### [facility] [address] [place] [address] Dr. Nuha Marinelli MANUAL DIFF REQ NO Normal [facility] Comment on above: Performed By: #### C BC #### [facility] [address] [place] [address] Dr. Nuha Marinelli MCH (RBC) [Entitic mass] 28.0 pg Normal 26.7-34.0 [facility] Comment on above: Performed By: #### C BC #### [facility] [address] [place] [address] Dr. Nuha Marinelli MCHC (RBC) [Mass/Vol] 33.2 g/dL Normal 29.9-35.2 [facility] Comment on above: Performed By: #### C BC #### [facility] [address] [place] [address] Dr. Nuha Marinelli MCV (RBC) [Entitic vol] 84.5 fL Normal 81.0-99.0 [facility] Comment on above: Performed By: #### C BC #### [facility] [address] [place] [address] Dr. Nuha Marinelli MONO # 0.5 103/ul Normal 0.3-0.8 [facility] Comment on above: Performed By: #### C BC #### [facility] [address] [place] [address] Dr. Nuha Marinelli Monocytes/100 WBC (Bld) 6.8 % Normal 1.7-12.0 [facility] Comment on above: Performed By: #### C BC #### [facility] [address] [place] [address] Dr. Nuha Marinelli NEUT # 4.3 103/ul Normal 1.4-6.5 [facility] Comment on above: Performed By: #### C BC #### [facility] [address] [place] [address] Dr. Nuha Marinelli Neutrophils/100 WBC (Bld) 58.3 % Normal 43.0-75.0 [facility] Comment on above: Performed By: #### C BC #### [facility] [address] [place] [address] Dr. Nuha Marinelli Platelet mean volume (Bld) [Entitic vol] 9.2 fL Critically low 9.5-13.5 [facility] Comment on above: Performed By: #### C BC #### [facility] [address] [place] [address] Dr. Nuha Marinelli PLT 209 103/ul Normal 150-450 [facility] Comment on above: Performed By: #### C BC #### [facility] [address] [place] [address] Dr. Nuha Marinelli RBC 4.85 106/ul Normal 4.20-5.40 [facility] Comment on above: Performed By: #### C BC #### [facility] [address] [place] [address] Dr. Nuha Marinelli WBC 7.4 103/ul Normal 4.0-11.0 [facility] Comment on above: Performed By: #### C BC #### [facility] [address] [place] [address] Dr. Nuha Marinelli LIPID PROFILEon 05-12-2022 CHOL-HDL RATIO NORM SEE BELOW Normal [facility] Comment on above: Result Comment: 3.3 - 4.4 LOW RISK 4.4 - 7.1 AVERAGE RISK 7.1 - 11.0 MODERATE RISK >11.0 HIGH RISK Performed By: #### B MP, LIPID #### [facility] [address] [place] [address] Dr. Nuha Marinelli Cholesterol [Mass/Vol] 183 mg/dL Normal <=200 [facility] Comment on above: Performed By: #### B MP, LIPID #### [facility] [address] [place] [address] Dr. Nuha Marinelli Cholesterol in HDL [Mass/Vol] 47 mg/dL Normal 40-60 [facility] Comment on above: Performed By: #### B MP, LIPID #### [facility] [address] [address] [address] Nuha Marinelli Cholesterol in LDL [Mass/Vol] 102.8 mg/dL Normal [facility] Comment on above: Performed By: #### B MP, LIPID #### [facility] [address] [address] [address] Nuha Marinelli Cholesterol.total/ Cholesterol in HDL [Mass ratio] 3.9 {ratio} Normal [facility] Comment on above: Performed By: #### B MP, LIPID #### [facility] [address] [address] [address] Nuha Marinelli HDL NORMAL > or = 60 mg/dl - LO W CARDIOVASCULAR RISK <40 mg/dl - HIGH CARDIOVASCULAR RISK Normal [facility] Comment on above: Performed By: #### B MP, LIPID #### [facility] [address] [address] [address] Nuha Marinelli LDL CALC NORMAL SEE BELOW Normal [facility] Comment on above: Result Comment: <100 mg/dl OPTIMAL 100 - 129 mg/dl NEAR OR ABOVE OPTIMAL 130 - 159 mg/dl BORDERLINE HIGH 160 - 189 mg/dl HIGH >190 mg/dl VERY HIGH Performed By: #### B MP, LIPID #### [facility] [address] [address] [address] Nuha Marinelli Triglyceride [Mass/Vol] 166 mg/dL Critically high <=150 [facility] Comment on above: Performed By: #### B MP, LIPID #### [facility] [address] [address] [address] Nuha Marinelli VLDL CALC 33.2 mg/dL Normal [facility] Comment on above: Performed By: #### B MP, LIPID #### [facility] [address] [address] [address] Nuha Marinelli MG MAMM SCREEN 3D CARSON CADon 05-12-2022 MG MAMM SCREEN 3D CARSON CAD Patient: RUPINDERSerenity MANDY J. Exam Date: 05/12/2022 : 1955 Gender:F Ordering : DR JOY LEAL . Admission #: [id number] Family : Order #: [id number] CLICK HERE TO VIEW EXAM RADIOLOGY REPORT PROCEDURE: MAMMOGRAM SCREENING 3D BILATERAL CAD COMPARISON: MG MAMM SCREEN CARSON W CAD, 05/08/2020. MG MAMM SCREEN 3D CARSON CAD, 05/07/2021. INDICATIONS: Screening mammography Calculator Name NCI Breast Cancer Risk Assessment Tool 5 Year Breast Cancer Risk 2.30% Lifetime Breast Cancer Risk 7.40% Personal Breast Cancer No Personal Ovarian Cancer No Treatments None Family Cancers Grandmother-maternal with breast cancer at age 80; Niece with liver cancer at age 6. LOCATION: [facility] BREAST COMPOSITION: Heterogeneously dense,which may obscure small masses. FINDINGS: DIAGNOSTIC CATEGORY 2--BENIGN FINDING. NO CHANGE FROM COMPARISON. Scattered benign-appearing nodules are present. Scattered benign-appearing calcifications are present. Scattered benign-appearing lymph nodes are present. RIGHT BREAST: No significant suspicious finding. LEFT BREAST: No significant suspicious finding. RECOMMENDATIONS: ROUTINE MAMMOGRAM AND CLINICAL EVALUATION IN 12 MONTHS. PLEASE NOTE: A NORMAL MAMMOGRAM DOES NOT EXCLUDE THE POSSIBILITY OF BREAST CANCER. A CLINICALLY SUSPICIOUS PALPABLE LUMP SHOULD BE BIOPSIED. Dictated by: Yossi Rose MD on 05/13/2022 at 11:13 Approved by: Yossi Rose MD on 05/13/2022 at 11:15 Normal [facility] PROF CHEM 8 (BAS METB)on Anion gap [Moles/Vol] 12.1 mmol/L Normal [facility] Comment on above: Performed By: #### B MP, LIPID #### [facility] [address] [address] [address] Nuha Marinelli Calcium [Mass/Vol] 9.3 mg/dL Normal 8.5-10.1 [facility] Comment on above: Performed By: #### B MP, LIPID #### [facility] [address] [address] [address] Nuha Marinelli Chloride [Moles/Vol] 99 mmol/L Normal 98-107 [facility] Comment on above: Performed By: #### B MP, LIPID #### [facility] [address] [address] [address] Nuha Marinelli CO2 [Moles/Vol] 29.7 mmol/L Normal 21.0-32.0 [facility] Comment on above: Performed By: #### B MP, LIPID #### [facility] [address] [address] [address] Nuha Marinelli Creatinine [Mass/Vol] 0.77 mg/dL Normal 0.55-1.02 [facility] Comment on above: Performed By: #### B MP, LIPID #### [facility] [address] [address] [address] Nuha Marinelli EGFR-AF IRISH >60 Normal >=60 [facility] Comment on above: Performed By: #### B MP, LIPID #### [facility] [address] [place] [address] Dr. Nuha Marinelli EGFR-NON AF IRISH >60 Normal >=60 [facility] Comment on above: Performed By: #### B MP, LIPID #### [facility] [address] [place] [address] Dr. Nuha Marinelli Glucose [Mass/Vol] 112 mg/dL Critically high 74-106 [facility] Comment on above: Performed By: #### B MP, LIPID #### [facility] [address] [place] [address] Dr. Nuha Marinelli Potassium [Moles/Vol] 3.8 mmol/L Normal 3.5-5.1 [facility] Comment on above: Performed By: #### B MP, LIPID #### [facility] [address] [place] [address] Dr. Nuha Marinelli Sodium [Moles/Vol] 137 mmol/L Normal 136-145 [facility] Comment on above: Performed By: #### B MP, LIPID #### [facility] [address] [address] [address] Nuha Marinelli Urea nitrogen [Mass/Vol] 15.0 mg/dL Normal 7.0-18.0 [facility] Comment on above: Performed By: #### B MP, LIPID #### [facility] [address] [place], [place] [id number] Dr. Nuha Marinelli Urea nitrogen/Creatinin e [Mass ratio] 19.5 mg/mg Normal [facility] Comment on above: Performed By: #### B MP, LIPID #### [facility] [address] [place] [address] Dr. Nuha Marinelli CBC AUTO DIFFon 11-15-2021 BASO # 0.0 103/ul Normal 0.0-0.1 [facility] Comment on above: Performed By: #### C BC #### [facility] [address] [place] [address] Dr. Nuha Marinelli Basophils/100 WBC (Bld) 0.6 % Normal 0.2-2.0 [facility] Comment on above: Performed By: #### C BC #### [facility] [address] [place] [address] Dr. Nuha Marinelli EO # 0.3 103/ul Normal 0.0-0.7 [facility] Comment on above: Performed By: #### C BC #### [facility] [address] [place] [address] Dr. Nuha Marinelli Eosinophils/100 WBC (Bld) 4.3 % Normal 0.9-7.0 [facility] Comment on above: Performed By: #### C BC #### [facility] [address] [place] [address] Dr. Nuha Marinelli Erythrocyte distribution width (RBC) [Ratio] 13.6 % Normal 11.0-15.0 [facility] Comment on above: Performed By: #### C BC #### [facility] [address] [place] [address] Dr. Nuha Marinelli Hematocrit (Bld) [Volume fraction] 39.8 % Normal 36.0-48.0 [facility] Comment on above: Performed By: #### C BC #### [facility] [address] [place] [address] Dr. Nuha Marinelli Hemoglobin (Bld) [Mass/Vol] 13.0 g/dL Normal 12.0-16.0 [facility] Comment on above: Performed By: #### C BC #### [facility] [address] [place] [address] Dr. Nuha Marinelli IG # 0.02 10e3/ul Normal 0.00-0.03 [facility] Comment on above: Performed By: #### C BC #### [facility] [address] [place] [address] Dr. Nuha Marinelli IG % 0.3 % Normal 0.0-0.5 [facility] Comment on above: Performed By: #### C BC #### [facility] [address] [place] [address] Dr. Nuha Marinelli LYMPH # 2.4 103/ul Normal 1.2-3.8 [facility] Comment on above: Performed By: #### C BC #### [facility] [address] [place] [address] Dr. Nuha Marinelli Lymphocytes/100 WBC (Bld) 36.5 % Normal 20.5-60.0 [facility] Comment on above: Performed By: #### C BC #### [facility] [address] [place] [address] Dr. Nuha Marinelli MANUAL DIFF REQ NO Normal [facility] Comment on above: Performed By: #### C BC #### [facility] [address] [place] [address] Dr. Nuha Marinelli MCH (RBC) [Entitic mass] 28.6 pg Normal 26.7-34.0 [facility] Comment on above: Performed By: #### C BC #### [facility] [address] [place] [address] Dr. Nuha Marinelli MCHC (RBC) [Mass/Vol] 32.7 g/dL Normal 29.9-35.2 [facility] Comment on above: Performed By: #### C BC #### [facility] [address] [place] [address] Dr. Nuha Marinelli MCV (RBC) [Entitic vol] 87.5 fL Normal 81.0-99.0 [facility] Comment on above: Performed By: #### C BC #### [facility] [address] [place] [address] Dr. Nuha Marinelli MONO # 0.6 103/ul Normal 0.3-0.8 [facility] Comment on above: Performed By: #### C BC #### [facility] [address] [address] [address] Nuha Marinelli Monocytes/100 WBC (Bld) 9.0 % Normal 1.7-12.0 [facility] Comment on above: Performed By: #### C BC #### [facility] [address] [address] [address] Nuha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
== END 2024-06-08 08:08 | disposition home or self-care (01) ==
PROVIDERS: PCP Nurse Practitioner; Visit Provider Nurse Practitioner
DX: Z12.31 Encounter for screening mammogram for malignant neoplasm of breast (principal); Z80.3 Family history of malignant neoplasm of breast; Z80.8 Family history of malignant neoplasm of other organs or systems
CPT/HCPCS: 77063; 77067

== ENCOUNTER 2024-07-05 13:38 | Emergency (ER) | payer MEDICARE, OTHER, SELFPAY ==
[2024-07-05] VITALS (58 sets, daily range): BP systolic 111–201; BP diastolic 65–126; PULSE 70–148; TEMP 36.6; O2SAT 93–100; BMI 47.6
--- NOTE | 2024-07-05 14:00 | ECG_ITS ---
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
--- NOTE | 2024-07-05 14:04 | ED_ITS ---
HPI HPI - General Adult General Chief complaint: Chest Pain Stated complaint: chest pain Time Seen by Provider: 07/05/24 13:56 Source: patient Mode of arrival: Wheelchair Limitations: no limitations History of Present Illness HPI narrative: Patient is a 68-year-old female with a history of high blood pressure presents to the emergency department for dizziness, racing heart and nausea that started approximately 4 hours ago. She has no cardiac history that she is aware of. She had a stress test 10 years ago that was normal. She reports chest discomfort but no severe chest pain or shortness of breath. She has had mild cough and cold symptoms. She states she took an [id number]-[id number] decongestant last night to help with her symptoms. She does not take any blood thinners. No medications taken prior to arrival. She states she feels weak all over and lightheaded. No syncope. Of note, the patient has discoloration to his skin that is dusky/blue. This is chronic for him and not new or worse today. Related Data Home Medications ?Medication ?Instructions ?Recorded ?Confirmed alprazolam 0.25 mg tablet 0.25 mg PO DAILY PRN anxiety 07/05/24 07/05/24 bisoprolol 5 1 tab PO DAILY 07/05/24 07/05/24 mg-hydrochlorothiazide 6.25 mg tablet ropinirole 0.25 mg tablet 0.25 mg PO BEDTIME 07/05/24 07/05/24 sertraline 100 mg tablet 100 mg PO Q24H 07/05/24 07/05/24 Allergies Allergy/AdvReac Type Severity Reaction Status Date / Time No Known Drug Allergies Allergy Verified 07/05/24 13:52 Opioid HPI Opioid Management Most Recent Opioid Data: No Data to Display Review of Systems ROS Constitutional Denies: fever or chills Ears, nose, mouth, and throat Reports: nasal congestion; Denies: throat pain Cardiovascular Reports: palpitations; Denies: chest pain Respiratory Denies: shortness of breath Gastrointestinal Reports: nausea; Denies: vomiting Musculoskeletal Denies: back pain Integumentary/Breast Denies: rash Neurological Denies: numbness in extremities or weakness in extremities Hematologic/Lymphatic Denies: easy bruising or easy bleeding PFSH PFSH Social History Little interest or pleasure in doing things: not at all Feeling down, depressed, or hopeless: not at all Exam Narrative Exam Narrative: Gen.: Awake, alert, in no distress Head: Normocephalic, atraumatic ENT: Moist mucous membranes Respiratory: Able to speak in full sentences, tachypnea, diminished lung sounds globally Cardio: Tachycardia Gastrointestinal: Abdomen is soft, nondistended and nontender to palpation Extremities: Moves extremities equally Psych: Normal mood and affect Neuro: No focal neuro deficit Skin: Warm, dry, intact Constitutional Vital Signs, click to edit/add: Last Vital Signs Temp 97.8 F 07/05/24 13:52 Pulse 74 07/05/24 18:20 Resp 17 07/05/24 18:20 BP 132/97 H 07/05/24 18:00 Pulse Ox 97 07/05/24 18:20 O2 Del Method Room Air 07/05/24 13:52 Course Vital Signs Vital signs: Vital Signs Blood Pressure 124/87 07/05/24 13:50 Temperature 97.8 F 07/05/24 13:52 Pulse Rate 74 07/05/24 18:20 Respiratory Rate 17 07/05/24 18:20 Blood Pressure 132/97 H 07/05/24 18:00 Pulse Oximetry 97 07/05/24 18:20 Oxygen Delivery Method Room Air 07/05/24 13:52 Medical Decision Making [facility] Narrative Medical decision making narrative: 1630: On arrival to the emergency department, patient was noted to be in a rapid atrial rhythm suspected to be 2-1 atrial flutter. She was given 10 mg IV Cardizem with immediate conversion to a normal sinus rhythm. She reports feeling much better although she still feels mildly dizzy and states she feels just not quite like herself. She has no significant other focal medical complaints and has not been having any chest pain or shortness of breath in the ER. D-dimer, labs are unremarkable although the patient did have an initial elevated troponin of 120. This value was repeated over 400. I discussed this with the patient and her son at bedside. 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 She request [facility]. Heparin drip was initiated with 162 mg of aspirin. She is hemodynamically stable and in normal sinus rhythm at this time. 2032: Case was discussed with Dr. Garcia at [facility] who accepted the patient for transfer for non-STEMI. Patient has rested comfortably throughout her stay in the ER. Troponins continue to uptrend so she was kept on the heparin drip. She is hemodynamically stable at this time and normal sinus rhythm. Critical care time 35 minutes SUPERVISED APC VISIT, PHYSICIAN ATTESTATION: Based on the medical record the care appears appropriate. ? Medical Records Medical records reviewed: Yes I reviewed the patient's medical records Lab Data Lab results reviewed: Yes I reviewed the patient's lab results Labs: Lab Results 07/05/24 07/05/24 07/05/24 Range/Units 14:00 15:44 16:58 WBC 7.8 (4.0-11.0) 10^3/uL RBC 4.96 (4.20-5.40) 10^6/uL Hgb 14.2 (12.0-16.0) g/dL Hct 41.7 (36.0-48.0) % MCV 84.1 (81.0-99.0) fL MCH 28.6 (26.7-34.0) pg MCHC 34.1 (29.9-35.2) g/dL RDW 13.4 (11.0-15.0) % Plt Count 207 (150-450) 10^3/uL MPV 9.5 (9.5-13.5) fL Neut % (Auto) 56.5 (43.0-75.0) % Lymph % (Auto) 32.0 (20.5-60.0) % Mckenzie % (Auto) 8.6 (1.7-12.0) % Eos % (Auto) 2.1 (0.9-7.0) % Baso % (Auto) 0.5 (0.2-2.0) % Neut # (Auto) 4.4 (1.4-6.5) 10^3/uL Lymph # (Auto) 2.5 (1.2-3.8) 10^3/uL Mckenzie # (Auto) 0.7 (0.3-0.8) 10^3/uL Eos # (Auto) 0.2 (0.0-0.7) 10^3/uL Baso # (Auto) 0.0 (0.0-0.1) 10^3/uL Abs Immat Gran (auto) 0.02 (0.00-0.03) 10^3/uL Imm/Tot Granulo (auto) 0.3 (0.0-0.5) % PT 10.2 10.2 (9.0-11.6) sec INR 0.96 0.96 APTT 33.6 (22.3-36.2) sec D-Dimer 0.36 (<=0.59) mg/L FEU Sodium 135 L (136-145) mmol/L Potassium 3.6 (3.5-5.1) mmol/L Chloride 101 (98-107) mmol/L Carbon Dioxide 26.0 (21.0-32.0) mmol/L Anion Gap 11.6 BUN 12.0 (7.0-18.0) mg/dL Creatinine 1.02 (0.55-1.02) mg/dL Est GFR ( Amer) >60 (>=60 mL/min/1.73m^2) Est GFR (Non-Af Amer) 54 L (>=60 mL/min/1.73m^2) BUN/Creatinine Ratio 11.8 Glucose 145 H (74-106) mg/dL Calcium 8.9 (8.5-10.1) mg/dL Magnesium 1.9 (1.8-2.4) mg/dL Total Bilirubin 0.4 (0.2-1.0) mg/dL AST 24 (15-37) U/L ALT 28 (14-59) U/L Alkaline Phosphatase 77 (46-116) U/L Troponin I High Sens 124.7 H* 410.2 H* (4.0-51.3) pg/mL NT-Pro-B Natriuret Pep 515.0 (<=900.0) pg/mL Total Protein 7.1 (6.4-8.2) g/dL Albumin 3.4 (3.4-5.0) g/dL Globulin 3.7 g/dL Albumin/Globulin Ratio 0.9 TSH 0.754 (0.358-3.740) uIU/mL Imaging Data Chest x-ray: Attestation: I have reviewed the pertinent imaging results. ECG Data Attestation: I personally reviewed and interpreted this ECG as follows: (EKG #1: Undetermined atrial rhythm at a rate of 144 with no obvious acute ST elevation. EKG #2: Normal sinus rhythm with occasional PVC at a rate of 83, no acute ST elevation or ectopy. EKGs reviewed by attending physician) Critical Care Time Critical Care Time Critical Care Time: Yes Total Critical Care Time: 35 Attestation: 35 minutes of critical care time assessed for management of dysrhythmia and transfer to a higher level of care as well as cardiac IV drip Discharge Plan Discharge Chief Complaint: Chest Pain Clinical Impression: Atrial flutter, Non-ST elevated myocardial infarction (non-STEMI), Elevated troponin Patient Disposition: [facility] Time of Disposition Decision: 20:36 Discharge Location: [facility] Condition: Good Mode of Transportation: EMS Prescriptions / Home Meds: No Action alprazolam 0.25 mg tablet 0.25 mg PO DAILY PRN (Reason: anxiety) sertraline 100 mg tablet 100 mg PO Q24H ropinirole 0.25 mg tablet 0.25 mg PO BEDTIME bisoprolol-hydrochlorothiazide 5-6.25 mg tablet 1 tab PO DAILY Print Language: Greenlandic Referrals: LE SAUER [Primary Care Provider] - 1 week
[2024-07-05] MEDS: 0.9 % SODIUM CHLORIDE 1,000 ML 999 ML IV (14:11)
[2024-07-05] MEDS: ONDANSETRON PF 4 MG/2 ML VIAL IV (14:11)
[2024-07-05] MEDS: DILTIAZEM HCL 25 MG/5 ML VIAL 10 MG IV (14:11)
--- OUTSIDE RECORDS SUMMARY | 2024-07-05 14:12 | XMS_ITS | CCD ---
Author Organization [facility] Care Team Providers Care Quality Specialist Name Role Phone MEL, DR JOY Benton Consulting Unavailable MEL, DR JOY Benton Attending Unavailable LEAL, DR JOY Benton Admitting Unavailable MEL, DR JOY Benton Primary Care Unavailable [place], DR YOSSI Pineda Consulting Unavailable MEL, DR [...] Azithromycin; Translations: [Zithromax] Drug Allergy 06-22-2015 [facility] Repository (6 sources) Azithromycin Drug Allergy 06-15-2023 [facility] Healthcare Work Phone: Medications Current Medications Medication [...] 8:20 AM EST With: Joan Montano Where: [facility] Medicine [place] [address] [place] [address]- Medications What How Much When Instructions Unchanged [...] choosing us for your care. Rita Chilel [facility] Family Medicine Office/Clini c Noteon 04-11-2024 [...] for 7 day(s), 14 tab(s), Refill(s) 0, [facility] #72, 153, cm, 04/11/24 8:35:00 EST, Height/Length [...] virus vaccine, inactivated 02/25/2022 Recorded SARS-CoV-2 (COVID-19) [id number].[id number] 02/25/2022 Recorded SARSCoV2 mRNA(walckuxaj-cngb-prx ros) vac 10/08/2021 Recorded influenza virus vaccine, inactivated 05/20/2021 Recorded SARS-CoV-2 (COVID-19) mRNA BNT-162b2 vax 02/14/2021 Recorded SARS-CoV-2 (COVID-19) mRNA BNT-162b2 vax 08/04/2020 Recorded SARS-CoV-2 (COVID-19) mRNA BNT-162b2 vax 07/14/2020 Recorded pneumococcal 13-valent vaccine 03/14/2020 Recorded influenza virus vaccine, inactivated 03/14/2020 Recorded zoster vaccine, inactivated 06/23/2019 Recorded influenza virus vaccine, inactivated 05/31/2019 Recorded zoster vaccine, inactivated 03/28/2019 Recorded Normal Chilel [facility] Comment on above: Result Comment: Elec [...] yes Amount of lidocaine used: 0.3 cc [facility] Type of biopsy: tangential Informed consent: discussed [...] yes Amount of lidocaine used: 0.5 cc [facility] Family Medicine Office/Clini c Noteon 09-02-2023 Family [...] dose to 1.8 will send order to [facility]. RTC 3 months. will check HGBA1C [...] virus vaccine, inactivated 02/25/2022 Recorded SARS-CoV-2 (COVID-19) mRNAMUL.[id number] 02/25/2022 Recorded SARSCoV2 mRNA(dkaryhgjp-ttre-dys ros) vac 10/08/2021 Recorded influenza virus vaccine, inactivated 05/20/2021 Recorded SARS-CoV-2 (COVID-19) mRNA BNT-162b2 vax 02/14/2021 Recorded SARS-CoV-2 (COVID-19) mRNA BNT-162b2 vax 08/04/2020 Recorded SARS-CoV-2 (COVID-19) mRNA BNT-162b2 vax 07/14/2020 Recorded pneumococcal 13-valent vaccine 03/14/2020 Recorded influenza virus vaccine, inactivated 03/14/2020 Recorded zoster vaccine, inactivated 06/23/2019 Recorded influenza virus vaccine, inactivated 05/31/2019 Recorded zoster vaccine, inactivated 03/28/2019 Recorded Normal [facility] Comment on above: Result Comment: Elec tronically Signed By: Joan Montano\.br\Date and Time Signed: 09/02/23 08:43 EDT Medication Consenton Medication Consent [id number]#1.00T IFF [facility] Retail - Clinical Noteon Retail - Clinical Note [id number]#1.00T IFF [facility] Pathology Noteon 07-07-2023 Pathology Note [id number]#1.00T IFF [facility] Consultation Noteon 07-06-19 Consultation Note [id number]#1.00T IFF [facility] Outside Mammographyon 2023 Outside Mammography [id number]#1.00TI FF [facility] Ambulatory Visit Summaryon 0 06-01-2023 Ambulatory Visit [...] Follow-Up Appointments Thursday 11:00 AM EST Where: [facility] Ambulatory Visit Summary MANDY CHOPRA :1955 Visit [...] Follow-Up Appointments Thursday 11:00 AM EST Where: [facility] Family Medicine Office/Clini c Noteon 06-01-2023 Family [...] Would like to discuss phentermine/ Ozempic through [facility]. MARIA GUADALUPE 05/14/23 pt was seen for [...] prescription coverage. would like to purchase through [facility] pharmacy. will fax order for 1.2 mg [...] day(s), 14 tab(s), Refill(s) 0, [facility] #[id number], 153, cm, 06/01/23 9:15:00 EST, Height/Length Dosing, 117.8, kg, 06/01/23 9:15:00 EST, Weight Dosing bisoprolol-hydrochlorot hiazide, 1 tab(s), Oral, Daily, 90 tab(s), Refill(s) 3, [facility] #[id number], 153, cm, 01/21/23 10:12:00 EDT, Height/Length Dosing, 114.8, kg, 01/21/23 10:12:00 EDT, Weight Dosing nirmatrelvir-ritonavir, See Instructions, Oral, BID, 30 tab(s), Refill(s) 0, 3 Tablets twice daily for 5 days, [facility] #[id number], 153, cm, 05/14/23 9:40:00 EST, Height/Length Dosing, 117.6, kg, 05/14/23 9:40:00 EST, Weight Dosing ropinirole, 0.25 mg, Oral, Bedtime, # 90 tab(s), Refills(s) 0, Pharmacy: [facility] #[id number], 157.5, cm, 09/09/22 8:56:00 EDT, Height/Length Dosing, 116.8, kg, 09/09/22 8:56:00 EDT, Weight Dosing ropinirole, 0.25 mg, Oral, Bedtime, # 90 tab(s), Refills(s) 1, Pharmacy: [facility] #[id number], 153, cm, 06/01/23 9:15:00 EST, Height/Length Dosing, 117.8, kg, 06/01/23 9:15:00 EST, Weight Dosing semaglutide, 0.5 mg, SubCutaneous, qWeek, 0.5mg SQ weekly rotate injection sites, # 1 EA, Refills(s) 2, Pharmacy: [facility] #[id number], 153, cm, 01/21/23 10:12:00 EDT, Height/Length Dosing, [...] Allergies Zithr (more content not included)... Normal [facility] Comment on above: Result Comment: Elec tronically Signed By: Joan Montano\.br\Date and Time Signed: 06/01/23 10:30 EST Retail - Clinical Noteon Retail - Clinical Note [id number]#1.00T IFF Normal [facility] Pre-Visit Planningon 024 Pre-Visit Planning - From: [...] feel free to contact me at extension [phone]. Thank you! Fanta Patton LPN From: Joan Montano To: Fanta Patton; Sent: 05/25/2023 08:22:30 EST Subject: RE: Pre-Visit Planning Caller Name: MANDY CHOPRA; Caller Number: H major depressive disorder, recurrent moderate Normal [address] [facility] Ambulatory Visit Summaryon 1 07-15-2022 Ambulatory Visit [...] 8:40 AM EST With: Joan Montano Where: [facility] [place] Normal [facility] Family Medicine Office/Clini c Noteon 05-14-2023 Family [...] day(s), # 14 tab(s), Refills(s) 0, [facility]acy[facility][id number], 153, cm, 05/14/23 9:40:00 EST, Height/Length Dosing, 117.6, kg, 05/14/23 9:40:00 EST, Weight Dosing benzonatate, 200 mg = 1 cap(s), Oral, TID, X 7 day(s), # 21 cap(s), Refills(s) 0, Pharmacy: [facility] #[id number], 153, cm, 05/14/23 9:40:00 EST, Height/Length Dosing, 117.6, kg, 05/14/23 9:40:00 EST, Weight Dosing methylPREDNISolone, = 1 packet(s), Oral, As Directed, as directed on package labeling, X 6 day(s), # 21 tab(s), Refills(s) 0, Pharmacy: [facility] #[id number], 153, cm, 05/14/23 9:40:00 EST, Height/Length Dosing, 117.6, kg, 05/14/23 9:40:00 EST, Weight Dosing 2. BMI 50.0-59.9, adult (Z68.43: Body mass index [BMI] 50.0-59.9, adult) BMI education complete Ordered: amoxicillin-clavulanate , = 1 tab(s), Oral, q12hr, X 7 day(s), # 14 tab(s), Refills(s) 0, Pharmacy: [facility] #[id number], 153, cm, 05/14/23 9:40:00 EST, Height/Length Dosing, 117.6, kg, 05/14/23 9:40:00 EST, Weight Dosing benzonatate, 200 mg = 1 cap(s), Oral, TID, X 7 day(s), # 21 cap(s), Refills(s) 0, Pharmacy: [facility] #[id number], 153, cm, 05/14/23 9:40:00 EST, Height/Length Dosing, 117.6, kg, 05/14/23 9:40:00 EST, Weight Dosing methylPREDNISolone, = 1 packet(s), Oral, As Directed, as directed on package labeling, X 6 day(s), # 21 tab(s), Refills(s) 0, Pharmacy: [facility] #[id number], 153, cm, 05/14/23 9:40:00 EST, Height/Length Dosing, [...] 14 tab(s), Refills(s) 0, Pharmacy: [facility] #[id number], 153, cm, 05/14/23 9:40:00 EST, Height/Length Dosing, 117.6, kg, 05/14/23 9:40:00 EST, Weight Dosing benzonatate, 200 mg = 1 cap(s), Oral, TID, X 7 day(s), # 21 cap(s), Refills(s) 0, Pharmacy: [facility] #[id number], 153, cm, 05/14/23 9:40:00 EST, Height/Length Dosing, 117.6, kg, 05/14/23 9:40:00 EST, Weight Dosing methylPREDNISolone, = 1 packet(s), Oral, As Directed, as directed on package labeling, X 6 day(s), # 21 tab(s), Refills(s) 0, [facility] #[id number], 153, cm, 05/14/23 9:40:00 EST, Height/Length Dosing, [...] 1101F Sys (more content not included)... Normal [facility] Comment on above: Result Comment: Elec tronically Signed By: Joan Montano\.br\Date and Time Signed: 05/14/23 09:56 EST Immunization Recordson 04-27 Immunization Records [id number]#1.00T IFF Normal [facility] CBC AUTO DIFFon 05-12-2022 BASO # 0.0 103/ul Normal 0.0-0.1 [facility] Comment on above: Performed By: #### C BC #### [facility] [address] [place] [address] Dr. Nuha Marinelli Basophils/100 WBC (Bld) 0.5 % Normal 0.2-2.0 [facility] Comment on above: Performed By: #### C BC #### [facility] [address] [place] [address] Dr. Nuha Marinelli EO # 0.2 103/ul Normal 0.0-0.7 [facility] Comment on above: Performed By: #### C BC #### [facility] [address] [place] [address] Dr. Nuha Marinelli Eosinophils/100 WBC (Bld) 3.3 % Normal 0.9-7.0 [facility] Comment on above: Performed By: #### C BC #### [facility] [address] [place] [address] Dr. Nuha Marinelli Erythrocyte distribution width (RBC) [Ratio] 13.6 % Normal 11.0-15.0 [facility] Comment on above: Performed By: #### C BC #### [facility] [address] [place] [address] Dr. Nuha Marinelli Hematocrit (Bld) [Volume fraction] 41.0 % Normal 36.0-48.0 [facility] Comment on above: Performed By: #### C BC #### [facility] [address] [place] [address] Dr. Nuha Marinelli Hemoglobin (Bld) [Mass/Vol] 13.6 g/dL Normal 12.0-16.0 [facility] Comment on above: Performed By: #### C BC #### [facility] [address] [place] [address] Dr. Nuha Marinelli IG # 0.03 10e3/ul Normal 0.00-0.03 [facility] Comment on above: Performed By: #### C BC #### [facility] [address] [place] [address] Dr. Nuha Marinelli IG % 0.4 % Normal 0.0-0.5 [facility] Comment on above: Performed By: #### C BC #### [facility] [address] [place] [address] Dr. Nuha Marinelli LYMPH # 2.3 103/ul Normal 1.2-3.8 [facility] Comment on above: Performed By: #### C BC #### [facility] [address] [place] [address] Dr. Nuha Marinelli Lymphocytes/100 WBC (Bld) 30.7 % Normal 20.5-60.0 [facility] Comment on above: Performed By: #### C BC #### [facility] [address] [place] [address] Dr. Nuha Marinelli MANUAL DIFF REQ NO Normal [facility] Comment on above: Performed By: #### C BC #### [facility] [address] [place] [address] Dr. Nuha Marinelli MCH (RBC) [Entitic mass] 28.0 pg Normal 26.7-34.0 [facility] Comment on above: Performed By: #### C BC #### [facility] [address] [place] [address] Dr. Nuha Marinelli MCHC (RBC) [Mass/Vol] 33.2 g/dL Normal 29.9-35.2 [facility] Comment on above: Performed By: #### C BC #### [facility] [address] [place] [address] Dr. Nuha Marinelli MCV (RBC) [Entitic vol] 84.5 fL Normal 81.0-99.0 [facility] Comment on above: Performed By: #### C BC #### [facility] [address] [place] [address] Dr. Nuha Marinelli MONO # 0.5 103/ul Normal 0.3-0.8 [facility] Comment on above: Performed By: #### C BC #### [facility] [address] [place] [address] Dr. Nuha Marinelli Monocytes/100 WBC (Bld) 6.8 % Normal 1.7-12.0 [facility] Comment on above: Performed By: #### C BC #### [facility] [address] [place] [address] Dr. Nuha Marinelli NEUT # 4.3 103/ul Normal 1.4-6.5 [facility] Comment on above: Performed By: #### C BC #### [facility] [address] [place] [address] Dr. Nuha Marinelli Neutrophils/100 WBC (Bld) 58.3 % Normal 43.0-75.0 [facility] Comment on above: Performed By: #### C BC #### [facility] [address] [place] [address] Dr. Nuha Marinelli Platelet mean volume (Bld) [Entitic vol] 9.2 fL Critically low 9.5-13.5 [facility] Comment on above: Performed By: #### C BC #### [facility] [address] [place] [address] Dr. Nuha Marinelli PLT 209 103/ul Normal 150-450 [facility] Comment on above: Performed By: #### C BC #### [facility] [address] [place] [address] Dr. Nuha Marinelli RBC 4.85 106/ul Normal 4.20-5.40 [facility] Comment on above: Performed By: #### C BC #### [facility] [address] [place] [address] Dr. Nuha Marinelli WBC 7.4 103/ul Normal 4.0-11.0 [facility] Comment on above: Performed By: #### C BC #### [facility] [address] [place] [address] Dr. Nuha Marinelli LIPID PROFILEon 05-12-2022 CHOL-HDL RATIO NORM SEE BELOW Normal [facility] Comment on above: Result Comment: 3.3 - 4.4 LOW RISK 4.4 - 7.1 AVERAGE RISK 7.1 - 11.0 MODERATE RISK >11.0 HIGH RISK Performed By: #### B MP, LIPID #### [facility] [address] [place] [address] Dr. Nuha Marinelli Cholesterol [Mass/Vol] 183 mg/dL Normal <=200 [facility] Comment on above: Performed By: #### B MP, LIPID #### [facility] [address] [place] [address] Dr. Nuha Marinelli Cholesterol in HDL [Mass/Vol] 47 mg/dL Normal 40-60 [facility] Comment on above: Performed By: #### B MP, LIPID #### [facility] [address] [address] [address] Nuha Marinelli Cholesterol in LDL [Mass/Vol] 102.8 mg/dL Normal [facility] Comment on above: Performed By: #### B MP, LIPID #### [facility] [address] [address] [address] Nuha Marinelli Cholesterol.total/ Cholesterol in HDL [Mass ratio] 3.9 {ratio} Normal [facility] Comment on above: Performed By: #### B MP, LIPID #### [facility] [address] [address] [address] Nuha Marinelli HDL NORMAL > or = 60 mg/dl - LO W CARDIOVASCULAR RISK <40 mg/dl - HIGH CARDIOVASCULAR RISK Normal [facility] Comment on above: Performed By: #### B MP, LIPID #### [facility] [address] [address] [address] Nuha Marinelli LDL CALC NORMAL SEE BELOW Normal [facility] Comment on above: Result Comment: <100 mg/dl OPTIMAL 100 - 129 mg/dl NEAR OR ABOVE OPTIMAL 130 - 159 mg/dl BORDERLINE HIGH 160 - 189 mg/dl HIGH >190 mg/dl VERY HIGH Performed By: #### B MP, LIPID #### [facility] [address] [address] [address] Nuha Marinelli Triglyceride [Mass/Vol] 166 mg/dL Critically high <=150 [facility] Comment on above: Performed By: #### B MP, LIPID #### [facility] [address] [address] [address] Nuha Marinelli VLDL CALC 33.2 mg/dL Normal [facility] Comment on above: Performed By: #### B MP, LIPID #### [facility] [address] [address] [address] Nuha Marinelli MG MAMM SCREEN 3D CARSON CADon 05-12-2022 MG MAMM SCREEN 3D CARSON CAD Patient: RUPINDERSerenity MANDY J. Exam Date: 05/12/2022 : 1955 Gender:F Ordering : DR JOY LEAL . Admission #: [id number] Family : Order #: [id number] CLICK HERE TO VIEW EXAM RADIOLOGY REPORT [...] liver cancer at age 4. LOCATION: [facility] BREAST COMPOSITION: Heterogeneously dense,which may obscure small [...] Rose MD on 05/13/2022 at 11:15 Normal [facility] PROF CHEM 8 (BAS METB)on Anion gap [Moles/Vol] 12.1 mmol/L Normal [facility] Comment on above: Performed By: #### B MP, LIPID #### [facility] [address] [address] [address] Nuha Marinelli Calcium [Mass/Vol] 9.3 mg/dL Normal 8.5-10.1 [facility] Comment on above: Performed By: #### B MP, LIPID #### [facility] [address] [address] [address] Nuha Marinelli Chloride [Moles/Vol] 99 mmol/L Normal 98-107 [facility] Comment on above: Performed By: #### B MP, LIPID #### [facility] [address] [address] [address] Nuha Marinelli CO2 [Moles/Vol] 29.7 mmol/L Normal 21.0-32.0 [facility] Comment on above: Performed By: #### B MP, LIPID #### [facility] [address] [address] [address] Nuha Marinelli Creatinine [Mass/Vol] 0.77 mg/dL Normal 0.55-1.02 [facility] Comment on above: Performed By: #### B MP, LIPID #### [facility] [address] [address] [address] Nuha Marinelli EGFR-AF [facility] >60 Normal >=60 [facility] Comment on above: Performed By: #### B MP, LIPID #### [facility] [address] [place] [address] Dr. Nuha Marinelli EGFR-NON AF [facility] >60 Normal >=60 [facility] Comment on above: Performed By: #### B MP, LIPID #### [facility] [address] [place] [address] Dr. Nuha Marinelli Glucose [Mass/Vol] 112 mg/dL Critically high 74-106 [facility] Comment on above: Performed By: #### B MP, LIPID #### [facility] [address] [place] [address] Dr. Nuha Marinelli Potassium [Moles/Vol] 3.8 mmol/L Normal 3.5-5.1 [facility] Comment on above: Performed By: #### B MP, LIPID #### [facility] [address] [place] [address] Dr. Nuha Marinelli Sodium [Moles/Vol] 137 mmol/L Normal 136-145 [facility] Comment on above: Performed By: #### B MP, LIPID #### [facility] [address] [address] [address] Nuha Marinelli Urea nitrogen [Mass/Vol] 15.0 mg/dL Normal 7.0-18.0 [facility] Comment on above: Performed By: #### B MP, LIPID #### [facility] [address] [place], [place] [id number] Dr. Nuha Marinelli Urea nitrogen/Creatinin e [Mass ratio] 19.5 mg/mg Normal [facility] Comment on above: Performed By: #### B MP, LIPID #### [facility] [address] [place] [address] Dr. Nuha Marinelli CBC AUTO DIFFon 11-15-2021 BASO # 0.0 103/ul Normal 0.0-0.1 [facility] Comment on above: Performed By: #### C BC #### [facility] [address] [place] [address] Dr. Nuha Marinelli Basophils/100 WBC (Bld) 0.6 % Normal 0.2-2.0 [facility] Comment on above: Performed By: #### C BC #### [facility] [address] [place] [address] Dr. Nuha Marinelli EO # 0.3 103/ul Normal 0.0-0.7 [facility] Comment on above: Performed By: #### C BC #### [facility] [address] [place] [address] Dr. Nuha Marinelli Eosinophils/100 WBC (Bld) 4.3 % Normal 0.9-7.0 [facility] Comment on above: Performed By: #### C BC #### [facility] [address] [place] [address] Dr. Nuha Marinelli Erythrocyte distribution width (RBC) [Ratio] 13.6 % Normal 11.0-15.0 [facility] Comment on above: Performed By: #### C BC #### [facility] [address] [place] [address] Dr. Nuha Marinelli Hematocrit (Bld) [Volume fraction] 39.8 % Normal 36.0-48.0 [facility] Comment on above: Performed By: #### C BC #### [facility] [address] [place] [address] Dr. Nuha Marinelli Hemoglobin (Bld) [Mass/Vol] 13.0 g/dL Normal 12.0-16.0 [facility] Comment on above: Performed By: #### C BC #### [facility] [address] [place] [address] Dr. Nuha Marinelli IG # 0.02 10e3/ul Normal 0.00-0.03 [facility] Comment on above: Performed By: #### C BC #### [facility] [address] [place] [address] Dr. Nuha Marinelli IG % 0.3 % Normal 0.0-0.5 [facility] Comment on above: Performed By: #### C BC #### [facility] [address] [place] [address] Dr. Nuha Marinelli LYMPH # 2.4 103/ul Normal 1.2-3.8 [facility] Comment on above: Performed By: #### C BC #### [facility] [address] [place] [address] Dr. Nuha Marinelli Lymphocytes/100 WBC (Bld) 36.5 % Normal 20.5-60.0 [facility] Comment on above: Performed By: #### C BC #### [facility] [address] [place] [address] Dr. Nuha Marinelli MANUAL DIFF REQ NO Normal [facility] Comment on above: Performed By: #### C BC #### [facility] [address] [place] [address] Dr. Nuha Marinelli MCH (RBC) [Entitic mass] 28.6 pg Normal 26.7-34.0 [facility] Comment on above: Performed By: #### C BC #### [facility] [address] [place] [address] Dr. Nuha Marinelli MCHC (RBC) [Mass/Vol] 32.7 g/dL Normal 29.9-35.2 [facility] Comment on above: Performed By: #### C BC #### [facility] [address] [place] [address] Dr. Nuha Marinelli MCV (RBC) [Entitic vol] 87.5 fL Normal 81.0-99.0 [facility] Comment on above: Performed By: #### C BC #### [facility] [address] [place] [address] Dr. Nuha Marinelli MONO # 0.6 103/ul Normal 0.3-0.8 [facility] Comment on above: Performed By: #### C BC #### [facility] [address] [address] [address] Nuha Marinelli Monocytes/100 WBC (Bld) 9.0 % Normal 1.7-12.0 [facility] Comment on above: Performed By: #### C BC #### [facility] [address] [address] [address] Nuha Marinelli NEUT # 3.3 103/ul Normal 1.4-6.5 [facility] Comment on above: Performed By: #### C BC #### [facility] [address] [place] [address] Dr. Nuha Marinelli Neutrophils/100 WBC (Bld) 49.3 % Normal 43.0-75.0 [facility] Comment on above: Performed By: #### C BC #### [facility] [address] [place] [address] Dr. Nuha Marinelli Platelet mean volume (Bld) [Entitic vol] 9.3 fL Critically low 9.5-13.5 [facility] Comment on above: Performed By: #### C BC #### [facility] [address] [place] [address] Dr. Nuha Marinelli PLT 181 103/ul Normal 150-450 [facility] Comment on above: Performed By: #### C BC #### [facility] [address] [place] [address] Dr. Nuha Marinelli RBC 4.55 106/ul Normal 4.20-5.40 [facility] Comment on above: Performed By: #### C BC #### [facility] [address] [place] [address] Dr. Nuha Marinelli WBC 6.7 103/ul Normal 4.0-11.0 [facility] Comment on above: Performed By: #### C BC #### [facility] [address] [place] [address] Dr. Nuha Marinelli LIPID PROFILEon 07-01-2022 CHOL-HDL RATIO NORM SEE BELOW Normal [facility] Comment on above: Result Comment: 3.3 - 4.4 LOW RISK 4.4 - 7.1 AVERAGE RISK 7.1 - 11.0 MODERATE RISK >11.0 HIGH RISK Performed By: #### L IPID, CMP, TSH #### [facility] [address] [address] [address] Nuha Marinelli Cholesterol [Mass/Vol] 219 mg/dL Critically high <=200 [facility] Comment on above: Performed By: #### L IPID, CMP, TSH #### [facility] [address] [address] [address] Nuha Marinelli Cholesterol in HDL [Mass/Vol] 47 mg/dL Normal 40-60 [facility] Comment on above: Performed By: #### L IPID, CMP, TSH #### [facility] [address] [address] [address] Nuha Marinelli Cholesterol in LDL [Mass/Vol] 139.2 mg/dL Normal [facility] Comment on above: Performed By: #### L IPID, CMP, TSH #### [facility] [address] [address] [address] Nuha Marinelli Cholesterol.total/ Cholesterol in HDL [Mass ratio] 4.7 {ratio} Normal [facility] Comment on above: Performed By: #### L IPID, CMP, TSH #### [facility] [address] [address] [address] Nuha Marinelli HDL NORMAL > or = 60 mg/dl - LO W CARDIOVASCULAR RISK <40 mg/dl - HIGH CARDIOVASCULAR RISK Normal [facility] Comment on above: Performed By: #### L IPID, CMP, TSH #### [facility] [address] [address] [address] Nuha Marinelli LDL CALC NORMAL SEE BELOW Normal [facility] Comment on above: Result Comment: <100 mg/dl OPTIMAL 100 - 129 mg/dl NEAR OR ABOVE OPTIMAL 130 - 159 mg/dl BORDERLINE HIGH 160 - 189 mg/dl HIGH >190 mg/dl VERY HIGH Performed By: #### L IPID, CMP, TSH #### [facility] [address] [address] [address] Nuha Marinelli Triglyceride [Mass/Vol] 164 mg/dL Critically high <=150 [facility] Comment on above: Performed By: #### L IPID, CMP, TSH #### [facility] [address] [place] [address] Dr. Nuha Marinelli VLDL CALC 32.8 mg/dL Normal [facility] Comment on above: Performed By: #### L IPID, CMP, TSH #### [facility] [address] [address] [address] Nuha Marinelli PROF 14(COMP METB)on 022 Albumin [Mass/Vol] 3.7 g/dL Normal 3.4-5.0 [facility] Comment on above: Performed By: #### L IPID, CMP, TSH #### [facility] [address] [place] [address] Dr. Nuha Marinelli Albumin/Globulin [Mass ratio] 1.0 {ratio} Normal [facility] Comment on above: Performed By: #### L IPID, CMP, TSH #### [facility] [address] [place] [address] Dr. Nuha Marinelli ALP [Catalytic activity/Vol] 79 U/L Normal 46-116 [facility] Comment on above: Performed By: #### L IPID, CMP, TSH #### [facility] [address] [place] [address] Dr. Nuha Marinelli ALT [Catalytic activity/Vol] 32 U/L Normal 14-59 [facility] Comment on above: Performed By: #### L IPID, CMP, TSH #### [facility] [address] [place] [address] Dr. Nuha Marinelli Anion gap [Moles/Vol] 12.6 mmol/L Normal [facility] Comment on above: Performed By: #### L IPID, CMP, TSH #### [facility] [address] [place] [address] Dr. Nuha Marinelli AST [Catalytic activity/Vol] 16 U/L Normal 15-37 [facility] Comment on above: Performed By: #### L IPID, CMP, TSH #### [facility] [address] [address] [address] Nuha Marinelli Bilirubin [Mass/Vol] 0.5 mg/dL Normal 0.2-1.0 [facility] Comment on above: Performed By: #### L IPID, CMP, TSH #### [facility] [address] [place] [address] Dr. Nuha Marinelli Calcium [Mass/Vol] 8.9 mg/dL Normal 8.5-10.1 [facility] Comment on above: Performed By: #### L IPID, CMP, TSH #### [facility] [address] [address] [address] Nuha Marinelli Chloride [Moles/Vol] 102 mmol/L Normal 98-107 [facility] Comment on above: Performed By: #### L IPID, CMP, TSH #### [facility] [address] [place] [address] Dr. Nuha Marinelli CO2 [Moles/Vol] 27.7 mmol/L Normal 21.0-32.0 [facility] Comment on above: Performed By: #### L IPID, CMP, TSH #### [facility] [address] [place] [address] Dr. Nuha Marinelli Creatinine [Mass/Vol] 0.90 mg/dL Normal 0.55-1.02 [facility] Comment on above: Performed By: #### L IPID, CMP, TSH #### [facility] [address] [place] [address] Dr. Nuha Marinelli EGFR-AF [facility] >60 Normal >=60 [facility] Comment on above: Performed By: #### L IPID, CMP, TSH #### [facility] [address] [place] [address] Dr. Nuha Marinelli EGFR-NON AF [facility] >60 Normal >=60 [facility] Comment on above: Performed By: #### L IPID, CMP, TSH #### [facility] [address] [place] [address] Dr. Nuha Marinelli Globulin (S) [Mass/Vol] 3.7 g/dL Normal [facility] Comment on above: Performed By: #### L IPID, CMP, TSH #### [facility] [address] [address] [address] Nuha Marinelli Glucose [Mass/Vol] 108 mg/dL Critically high 74-106 [facility] Comment on above: Performed By: #### L IPID, CMP, TSH #### [facility] [address] [address] [address] Nuha Marinelli Potassium [Moles/Vol] 4.3 mmol/L Normal 3.5-5.1 [facility] Comment on above: Performed By: #### L IPID, CMP, TSH #### [facility] [address] [place] [address] Dr. Nuha Marinelli Protein [Mass/Vol] 7.4 g/dL Normal 6.4-8.2 [facility] Comment on above: Performed By: #### L IPID, CMP, TSH #### [facility] [address] [place] [address] Dr. Nuha Marinelli Sodium [Moles/Vol] 138 mmol/L Normal 136-145 [facility] Comment on above: Performed By: #### L IPID, CMP, TSH #### [facility] [address] [place] [address] Dr. Nuha Marinelli Urea nitrogen [Mass/Vol] 18.0 mg/dL Normal 7.0-18.0 [facility] Comment on above: Performed By: #### L IPID, CMP, TSH #### [facility] [address] [place] [address] Dr. Nuha Marinelli Urea nitrogen/Creatinin e [Mass ratio] 20.0 mg/mg Normal [facility] Comment on above: Performed By: #### L IPID, CMP, TSH #### [facility] [address] [place] [address] Dr. Nuha Marinelli TSHon 11-15-2021 TSH 1.735 uIU/mL Normal 0.358-3.[address] [facility] Comment on above: Performed By: #### L IPID, CMP, TSH #### [facility] [address] [place] [address] Dr. Nuha Marinelli Encounters Encounter Date Encounter Type Care Provider Facility Start: 07-11-2024 ambulatory Joan L Tomy Facility: [facility] Start: 04-11-2024 End: 04-11-2024 ambulatory Joan L Tomy Facility:[facility] Start: 03-28-2024 ambulatory Joan L Tomy Facility: [facility] Start: 03-21-2024 End: 03-21-2024 Bamboo flowsheet Chapis A Felter ASSEMBLY LEAD PERSON-[employer] Work Phone: [facility] Start: 03-21-2024 End: 03-21-2024 Bamboo flowsheet Chapis A Felter ASSEMBLY LEAD PERSON-[employer] Work Phone: [facility] Start: 03-21-2024 End: 03-21-2024 Office outpatient visit 15 minutes Chapis A Felter [employer]SEM[employer] LEAD PERSON[employer] Work Phone: [facility] Comment on above: Psoriasis vulgaris ( CMS/HCC); Rash and other nonspecific skin eruption Start: 03-21-2024 End: 03-21-2024 ambulatory CHAPIS A FELTER Not Available Start: 01-25-2024 End: 01-25-2024 Bamboo flowsheet Chapis A Felter ASSEMBLY LEAD PERSON-[employer] Work Phone: [facility] Start: 01-25-2024 End: 01-25-2024 Bamboo flowsheet Chapis A Felter ASSEMBLY LEAD PERSON-[employer] Work Phone: [facility] Start: 01-25-2024 End: 01-25-2024 Office outpatient visit 25 minutes Chapis A Felter ASSEMBLY LEAD PERSON-[employer] Work Phone: [facility] Comment on above: Seborrheic keratosis ; Lentigines; Melanocytic nevus of trunk; Seborrheic keratosis, inflamed; Psoriasis vulgaris (CMS/HCC); Rash and other nonspecific skin eruption; Neoplasm of unspecified behavior of bone, soft tissue, and skin Start: 01-25-2024 End: 01-25-2024 ambulatory CHAPIS A FELTER Not Available Start: 12-02-2023 End: 12-02-2023 ambulatory Joan L Tomy Facility: [facility] Start: 09-02-2023 End: 09-02-2023 ambulatory Joan L Tomy Facility: [facility] Start: 07-03-2023 End: 07-03-2023 ambulatory CHAPIS A FELTER Not Available Start: 06-15-2023 End: 06-15-2023 ambulatory CHAPIS A FELTER Not Available Start: 06-01-2023 End: 06-01-2023 ambulatory Joan L Tomy Facility: [facility] Start: 05-14-2023 End: 05-14-2023 ambulatory Joan L Tomy Facility: [facility] Start: 04-22-2023 End: 04-22-2023 ambulatory Joan L Tomy Facility: [facility] Start: 12-01-2022 End: 12-01-2022 ambulatory Imad Asaad Facility:[facility] Start: 05-12-2022 End: 05-13-[address] JOY LEAL Facility:[facility] Start: 11-15-2021 End: 11-16-[address] JOY LEAL Facility:[facility] Procedures Date Procedure Procedure Detail Performing Clinician Start: 01-25-2024 CRYOTHERAPY SKIN LESION Chapis Ortez [employer]SEM[employer]Y LEAD PERSON[employer] Work Phone: Start: 01-25-2024 End: 01-25-2024 SKIN / NAIL BIOPSY Chapis Middleton Feltashleigh APR N-[employer] HOSTLER Work Phone: Start: 05-18-2013 Colonoscopy Chapis Fe lter [employer]SEM[employer]Y LEAD PERSON-[employer] Work Phone: Plan of Treatment Date Care Activity Detail Author Start: 03-21-2025 End: 03-21-2025 Patient encounter procedure 03/21/2025 10:35 AM EST Office Visit [facility] [address] [place] [address] Chapis Ortez, ASSEMBLY LEAD PERSON[employer]ER [address] [place] [address] [facility] Start: 03-21-2024 End: 03-21-2024 Patient encounter procedure 03/21/2024 10:40 AM EST Office Visit [facility] [address] [place] [id number] Chapis Ortez, ASSEMBLY LEAD PERSON[employer] [address] [place] [address] Arrived [facility] Comment on above: Arrived Start: 02-15-2024 End: 02-15-2024 Patient encounter procedure 02/15/2024 9:35 AM EDT Office Visit [facility] [address] [place] [id number] Chapis Ortez, ASSEMBLY LEAD PERSON[employer] [address] [place] [address] [facility] Start: 01-25-2024 End: 01-25-2024 Patient encounter procedure 01/25/2024 9:55 AM EDT Office Visit [facility] [address] [place] [id number] Chapis Ortez, ASSEMBLY LEAD PERSON[employer]ER [address] [place] [address] Arrived [facility] Comment on above: Arrived Start: 01-17-2024 Influenza vaccination Influenza Vaccine (#1) [facility] Start: 05-18-2023 Screening for malignant neoplasm of colon [facility] Start: 03-14-2021 Pneumococcal Vaccine: 65+ Years (2 of 2 - PPSV23 or PCV20) Pneumococcal Vaccine: 65+ Years (2 of 2 - PPSV23 or PCV20) [facility] Start: 1993 Screening for malignant neoplasm of breast Mammogram [facility] Start: 1955 Screening for malignant neoplasm of colon [facility] Dermatopathology exam Dermatopat hology exam Pathology and Cytology Timed Neoplasm of unspecified behavior of bone, soft tissue, and skin Release Upon Ordering for 1 Occurrences starting 01/25/2024 [facility] Work Phone: Comment on above: Release Upon Ordering for 1 Occurrences starting 01/25/2024 Immunizations Immunization Date Immunization Notes Care Provider Fa brety 04-01-2023 influenza virus vacc ine, unspecified formulation Chapis Hernandezashleigh GONZALESN-CAR HOSTLER Work Phone: [facility] Payers Date Payer Category Payer Private Health Insurance [id number] 2022 Self-pay 2018 Medicare [id number] 1959 Medicare [id number] 1959 Private Health Insurance CLI [id number] 1955 Unknown [id number] 2.16.84 [id number] 1953 Unknown [id number] 2.16.84 [id number] 1953 Unknown [id number] 2.16.84 0.1.503954.3.579.2.1259 1953 Unknown [id number] 2.16.84 0.1.247867.3.579.2.1259 1953 Unknown [id number] 2.16.84 0.1.817822.3.579.2.1259 1953 Unknown [id number] 2.16.84 0.1.254231.3.579.2.1259 1953 Unknown [id number] 2.16.8 40.1.347545.3.579.2.727 1953 Unknown [id number] 2.16.8 40.1.824857.3.579.2.727 1953 Unknown [id number] 2.16.8 40.1.730106.3.579.2.727 1953 Unknown [id number] 2.16.8 40.1.805884.3.579.2.727 1953 Unknown [id number] 2.16.8 40.1.848164.3.579.2.727 1953 Unknown [id number] 2.16.8 40.1.631828.3.579.2.727 1953 Unknown [id number] 2.16.8 40.1.777247.3.579.2.727 1953 Unknown [id number] 2.16.8 [id number] Unknown [id number] 2.16.8 [id number] Social History Date Type Detail Facility Start: 05-05-2023 Tobacco smoking stat [facility] Never smoked tobacco [facility] Start: 07-03-2023 End: 01-25-2024 Alcoholic beverage intake Lifetime non-drinker (finding) [facility] Start: 07-03-2023 End: 01-25-2024 History of Social function [facility] Start: 07-03-2023 End: 01-25-2024 Tobacco use panel [facility] Start: 05-05-2023 Alcohol Comment caffeine: 1-2 cups per day [facility] Start: 1955 Sex assigned at Not on file [facility] History of Present illness Narrative 03-21-2024 Chapis Ortez, ASSEMBLY LEAD PERSON-[employer] H[employer]ER - 03/21/2024 10:40 AM EST Note Date [...] below: 1. Psoriasis vulgaris (CMS/HCC) Left Mid [place], Right Postauricular Area, Scalp Well-marginated erythematous papules/plaques [...] 4. Seborrheic keratosis, inflamed Neck - Anterior [place] and brown stuck on verrucous scaly papule [...] limited to risks of scarring, darker or benefits representative pigmentary changes, recurrence, incomplete removal and infection. [...] Anterior 5. Psoriasis vulgaris (CMS/HCC) Left [place], Right Postauricular Area, Scalp Well-marginated erythematous papules/plaques [...] lesion: 0.7 x 0.6 cm Left Chin Thom[place] pearly papule Lesion biopsy Type of biopsy: [...] rash follow up documented in this encounter [facility] Evaluation note Note Date & Type Note Facility Evaluation note Diagnosis Psoriasis vulgaris (CMS/HCC) Other psoriasis Rash and other nonspecific skin eruption documented in this encounter [facility] Evaluation note Note Date & Type Note Facility Evaluation note Diagnosis Seborrheic keratosis Lentigines Melanocytic nevus of trunk Benign neoplasm of skin of trunk, except scrotum Seborrheic keratosis, inflamed Psoriasis vulgaris (CMS/HCC) Other psoriasis Rash and other nonspecific skin eruption Neoplasm of unspecified behavior of bone, soft tissue, and skin documented in this encounter [facility] Summary Purpose Family History No Family History Records FoundNo Family History Records FoundNo Family History Records FoundNo Family History Records Found Advance Directives No Advanced Directives Records FoundNo Advanced Directives Records FoundNo Advanced Directives Records FoundNo Advanced Directives Records Found Additional Source Comments INFORMATION SOURCE (unrecogn ized section and content) DATE CREATED AUTHOR 05/16/2022 [facility] DATE CREATED AUTHOR AUTHOR'S ORGANIZ ATION 12/05/2022 [facility] DATE CREATED AUTHOR AUTHOR'S ORGANIZ ATION 03/22/2024 [facility] DATE CREATED AUTHOR AUTHOR'S ORGANIZ ATION 04/13/2024 [facility] Reason for Visit (unrecogniz ed section and [...] BE BASED ON THE PRIMARY CLINICAL RECORDS. [facility]. provides no warranty or guarantee of the accuracy or completeness of information in this document.
[2024-07-05 14:55] LABS: Basophils Percent Auto 0.5 % (0.2-2.0); Eosinophils Absolute Auto 0.2 10^3/uL (0.0-0.7); Eosinophils Percent Auto 2.1 % (0.9-7.0); Hematocrit 41.7 % (36.0-48.0); Hemoglobin 14.2 g/dL (12.0-16.0); Immature Granulocytes Abs Auto 0.02 10^3/uL (0.00-0.03); Immature Granulocytes Pct Auto 0.3 % (0.0-0.5); Lymphocytes Absolute Auto 2.5 10^3/uL (1.2-3.8); Mean Corpuscular HGB Conc 34.1 g/dL (29.9-35.2); Mean Corpuscular Hemoglobin 28.6 pg (26.7-34.0); Mean Corpuscular Volume 84.1 fL (81.0-99.0); Mean Platelet Volume 9.5 fL (9.5-13.5); Monocytes Absolute Auto 0.7 10^3/uL (0.3-0.8); Monocytes Percent Auto 8.6 % (1.7-12.0); Neutrophils Absolute Auto 4.4 10^3/uL (1.4-6.5); Neutrophils Percent Auto 56.5 % (43.0-75.0); Platelet Count 207 10^3/uL (150-450); Red Blood Count 4.96 10^6/uL (4.20-5.40); Red Cell Distribution Width 13.4 % (11.0-15.0); White Blood Count 7.8 10^3/uL (4.0-11.0)
[2024-07-05 15:09] LABS: D Dimer 0.36 mg/L FEU (<=0.59); INR 0.96; Prothrombin Time 10.2 sec (9.0-11.6)
[2024-07-05 15:10] LABS: Alanine Aminotransferase 28 U/L (14-59); Albumin Globulin Ratio 0.9; Albumin Level 3.4 g/dL (3.4-5.0); Alkaline Phosphatase 77 U/L (46-116); Anion Gap 11.6; Aspartate Amino Transferase 24 U/L (15-37); BUN Creatinine Ratio 11.8; Bilirubin Total 0.4 mg/dL (0.2-1.0); Calcium 8.9 mg/dL (8.5-10.1); Chloride 101 mmol/L (98-107); Estimated GFR (African America >60 (>=60 mL/min/1.73m^2); Estimated GFR (Non-African Ame 54 (>=60 mL/min/1.73m^2); Globulin 3.7 g/dL; Glucose 145 mg/dL (74-106); Potassium 3.6 mmol/L (3.5-5.1); Sodium 135 mmol/L (136-145); Total Protein 7.1 g/dL (6.4-8.2)
[2024-07-05 15:19] LABS: Magnesium 1.9 mg/dL (1.8-2.4); Thyroid Stimulating Hormone 0.754 uIU/mL (0.358-3.740)
[2024-07-05 15:26] LABS: Troponin I High Sensitivity 124.7 pg/mL (4.0-51.3)
[2024-07-05 16:15] LABS: Troponin I High Sensitivity 410.2 pg/mL (4.0-51.3)
--- NOTE | 2024-07-05 16:32 | ECG_ITS ---
The [facility] Test Date: 2024-07-05 Pat Name: KEELY CHOPRA Department: Room: - Gender: Female Cook Larder: : 1955 Requested By: Order Number: [id number] Reading MD: CONNER MCDONALD Measurements Intervals [place] Rate: 83 P: 21 CT: 176 QRS: 51 QRSD: 80 T: 53 QT: 352 QTc: 392 Interpretive Statements 1100 Sinus rhythm 1470 with occasional supraventricular premature complexes 9140 abnormal rhythm ECG Compared to ECG 07/05/2024 13:51:45 ST (T wave) deviation no longer present Electronically Signed On 07-06-2024 7:10:04 EST by CONNER MCDONALD
[2024-07-05] MEDS: ASPIRIN 81 MG TAB.CHEW 162 MG PO (16:51)
[2024-07-05] MEDS: HEPARIN SODIUM,PORCINE/D5W 25,000 UNIT/500 ML IV.SOLN 18 UNIT IV (16:57)
[2024-07-05 17:22] LABS: INR 0.96; Partial Thromboplastin Time 33.6 sec (22.3-36.2); Prothrombin Time 10.2 sec (9.0-11.6)
[2024-07-05 20:12] LABS: Troponin I High Sensitivity 673.9 pg/mL (4.0-51.3)
== END 2024-07-05 22:57 | disposition short-term general hospital (02) ==
PROVIDERS: Physician Assistant; Emergency Provider Emergency Medicine; PCP Nurse Practitioner
DX: I21.4 Non-ST elevation (NSTEMI) myocardial infarction (principal); I48.92 Unspecified atrial flutter; I10 Essential (primary) hypertension; R42 Dizziness and giddiness; R79.89 Other specified abnormal findings of blood chemistry
CPT/HCPCS: 36415; 71045; 80053; 83735; 83880; 84443; 84484; 85025; 85378; 85610; 85730; 93005; 96361; 96365; 96366; 96375; 99285; J1644; J2405

== ENCOUNTER 2024-09-25 10:59 | Emergency (ER) | payer MEDICARE, OTHER, SELFPAY ==
[2024-09-25] VITALS (12 sets, daily range): BP systolic 114–161; BP diastolic 78–131; PULSE 71–166; TEMP 36.7; O2SAT 97–100; BMI 47.6
--- OUTSIDE RECORDS SUMMARY | 2024-09-25 11:05 | XMS_ITS | CCD ---
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 Temperature (Tympanic) 36.8 ???C Heart Rate (Peripheral) 78 Respiratory Rate 18 Blood Pressure 122/82 Height 153.0 cm Height 60 in Weight 119.3 kg Weight 263.011 lb BMI 50.96 What to do next Scheduled Follow-Up Appointments Thursday 8:20 AM EDT With: Le Montano Where: [place] [id number]- Medications What How Much When Instructions Unchanged alprazolam (alprazolam 0.25 mg Tab) 0.25 Milligram By Mouth Every day prn Dx F41.9 Unchanged apixaban (Eliquis 5 mg oral tablet) 1 Tablets By Mouth 2 times a day Unchanged metoprolol (Lopressor 25 mg oral tablet) 0.5 Tablets By Mouth 2 times a day TAKE 1/ 2 (ONE-HALF) OF A TABLET BY MOUTH TWICE DAILY Unchanged ropinirole (ropinirole 0.25 mg Tab) See instructions take 1 tablet by mouth at bedtime Unchanged sertraline (sertraline 100 mg Tab) 100 Milligram By Mouth Every day Allergies Zithromax (Unknown) Problems Ongoing - Any problem that you are currently receiving treatment for. Adult BMI 50.0-59.9 kg/sq m Anxiety Blurry vision, right eye Facial swelling Fluid level behind tympanic membrane [...] you for choosing us for your care. Normal [facility] Family Medicine Office/Clini c Noteon 07-11-2024 Family Medicine Office/Clinic Note Family Medicine Office/Clinic Note HPI Staff Keely is a 68 year old female presenting for 3 month follow up Weight management: Semaglutide Sleeping well:Yes, 6-8 hours Chest pain:No Tremors:No Headaches:No Heart fluttering:No Blurred Vision:No Beginning weight: 259.16 Previous weight: 270 Today's weight: 263 Questions/Concerns: doing well no concerns ER followup: Hospital: [facility] Visit date: 07/05/24 Symptoms the patient presented with: Dizzy, lightheaded, jaw pain, heart palpations Symptom onset/injury onset: 07/05/24 Current concerns: Then transferred [place] [facility] [place] had heart cath started Metoprolol and Eliquis and d/c bisoprolol/HCTZ was discharged 07/07/24 Pt states she is feeling better just really tired. Has follow up with Cardiology 08/08/24 [facility] [place] Onset: 2 weeks ago sinus pressure, nasal drainage and post nasal drip, sinus congestion, ears popping, denies fevers History of Present Illness pt presents today for 3 month follow [facility] Review of Systems PHQ Score Initial Depression Screen Score: 0 SCORE Physical Exam Vitals & Measurements T: 36.8 ???C(Tympanic) HR: 78(Peripheral) RR: 18 BP: 122/82 SpO2: 97% HT: 60 in HT: 153.0 cm WT: 119.3 kg WT: 263.011 lb BMI: 50.96 General: alert, no acute distress ENMT: oral mucosa moist, no pharyngeal erythema or exudate Cardiovascular: regular rate and rhythm, normal peripheral perfusion Respiratory: Lungs CTA, respirations non labored Extremities: no deformity, no trauma Neurological: oriented x 4, LOC appropriate for age, CN II-XII intact, motor strength equal & normal bilaterally, speech normal Assessment/Plan 1. Non-STEMI (non-ST elevated myocardial infarction) (I21.4: Non-ST elevation (NSTEMI) myocardial infarction) pt recently had non-STEMI was taken to [facility] and had heart cath. will follow up with cardiology in July. denies chest pain or shortness of breath. pt is hoping that since she has another chronic condition insurance binh cover wegovy or any injectable for weight management. currently paying for compound pharmacy semaglutide. if insurance wont cover it, will sned order to [facility] for 1.8mg dose. Ordered: quetiapine, 25 mg = 1 tab(s), Oral, Bedtime, # 30 tab(s), Refills(s) 1, Pharmacy: [facility], 153, cm, 07/11/24 8:35:00 EST, Height/Length Dosing, 119.3, kg, 07/11/24 8:35:00 EST, Weight Dosing semaglutide, 0.25 mg, SubCutaneous, qWeek, # 4 EA, Refills(s) 0, Pharmacy: [facility], 153, cm, 07/11/24 8:35:00 EST, Height/Length Dosing, 119.3, kg, 07/11/24 8:35:00 EST, Weight Dosing 2. HTN - Hypertension (I10: Essential (primary) hypertension) BP at goal today Ordered: quetiapine, 25 mg = 1 tab(s), Oral, Bedtime, # 30 tab(s), Refills(s) 1, Pharmacy: [facility], 153, cm, 07/11/24 8:35:00 EST, Height/Length Dosing, 119.3, kg, 07/11/24 8:35:00 EST, Weight Dosing semaglutide, 0.25 mg, SubCutaneous, qWeek, # 4 EA, Refills(s) 0, Pharmacy: [facility], 153, cm, 07/11/24 8:35:00 EST, Height/Length Dosing, 119.3, kg, 07/11/24 8:35:00 EST, Weight Dosing 3. Insomnia (G47.00: Insomnia, unspecified) pt states she will go 20-24 hours without sleeping. will stop ropinorol and start seroquel. pt has had a lot going on personally and with other family members. her has brain tumor. discussed anxiety being a factor in her inability to sleep. RTC 4 weeks to follow up on starting seroquel. 4. Sinusitis (J32.9: Chronic sinusitis, unspecified) pt has been fighting sinus infection for 2 weeks. will treat with antibiotic. 5. Adult BMI 50.0-59.9 kg/sq m (Z68.43: Body mass index [BMI] 50.0-59.9, adult) pt has been taking semaglutide through [facility]. she recently had Non stermi and would like for me to order medication through pharmacy. not sure if they will cover it since she has another risk factor after having a [place] Ordered: quetiapine, 25 mg = 1 tab(s), Oral, Bedtime, # 30 tab(s), Refills(s) 1, Pharmacy: [facility], 153, cm, 07/11/24 8:35:00 EST, Height/Length Dosing, 119.3, kg, 07/11/24 8:35:00 EST, Weight Dosing semaglutide, 0.25 mg, SubCutaneous, qWeek, # 4 EA, Refills(s) 0, Pharmacy: [facility], 153, cm, 07/11/24 8:35:00 EST, Height/Length Dosing, 119.3, kg, 07/11/24 8:35:00 EST, Weight Dosing 6. Non-smoker (Z78.9: Other specified health status) continue not smoking Ordered: quetiapine, 25 mg = 1 tab(s), Oral, Bedtime, # 30 tab(s), Refills(s) 1, Pharmacy: [facility], 153, cm, 07/11/24 8:35:00 EST, Height/Length Dosing, 119.3, kg, 07/11/24 8:35:00 EST, Weight Dosing semaglutide, 0.25 mg, SubCutaneous, qWeek, # 4 EA, Refills(s) 0, Pharmacy: [facility], 153, cm, 07/11/24 8:35:00 EST, Height/Length Dosing, 119.3, kg, 07/11/24 8:35:00 EST, Weight Dosing Orders: bisoprolol-hydrochlorothia zide, 1 tab(s), Oral, Daily, 90 tab(s), Refill(s) 4, [facility], 153, cm, 09/02/23 8:30:00 (more content not included)... Normal [facility] Comment on above: Result Comment: Elec tronically Signed By: Le Montano\.sandra\Date and Time Signed: 07/11/24 10:07 EST B-Type Natriuretic Peptideon 07-07-2024 Natriuretic peptide B (Bld) [Mass/Vol] 110.0 pg/mL High 5-100 [facility] Comment on above: Result Comment: PERF ORMED BY: [place] [address] PATHOLOGIST TAILOR'S AIDE BEN MARISCAL M.D. Performed By: #### H S TROP, MG, CBC, BMP, LIPID #### [address] Basic Metabolic Panelon 06-19 Anion gap [Moles/Vol] 10.7 mmol/L Normal 6.0-15.0 [facility] Comment on above: Performed By: #### H S TROP, MG, CBC, BMP, LIPID #### [address] Calcium [Mass/Vol] 9.0 mg/dL Normal 8.6-10.3 [facility] Comment on above: Performed By: #### H S TROP, MG, CBC, BMP, LIPID #### [address] Chloride [Moles/Vol] 105 mmol/L Normal 98-107 [facility] Comment on above: Performed By: #### H S TROP, MG, CBC, BMP, LIPID #### [address] CO2 [Moles/Vol] 24.9 mmol/L Normal 21.0-31.0 [facility] Comment on above: Performed By: #### H S TROP, MG, CBC, BMP, LIPID #### [address] Creatinine [Mass/Vol] 0.86 mg/dL Normal 0.60-1.20 [facility] Comment on above: Performed By: #### H S TROP, MG, CBC, BMP, LIPID #### [address] Creatinine Clr Calc Pharmacy 74.97 Normal [facility] Comment on above: Result Comment: PERF ORMED BY: [place] [address] PATHOLOGIST TAILOR'S AIDE BEN MARISCAL M.D. Performed By: #### H S TROP, MG, CBC, BMP, LIPID #### [place] [address] [place] GFR/1.73 sq M.predicted MDRD (S/P/Bld) [Vol rate/Area] mL/min/{1.73_m2} Normal [facility] Comment on above: Performed By: #### H S TROP, MG, CBC, BMP, LIPID #### [address] Glucose [Mass/Vol] 116 mg/dL High 70-100 [facility] Comment on above: Result Comment: [facility] Glucose Reference Range is dependent on time and content of last meal. Glucose of more than 200 mg/dL in a nonstressed, ambulatory subject supports the diagnosis of Diabetes Mellitus. ADA recommended reference range Performed By: #### H S TROP, MG, CBC, BMP, LIPID #### [address] Potassium [Moles/Vol] 3.6 mmol/L Normal 3.5-5.1 [facility] Comment on above: Performed By: #### H S TROP, MG, CBC, BMP, LIPID #### [place] [address] [place] Sodium [Moles/Vol] 137 mmol/L Normal 136-145 [facility] Comment on above: Performed By: #### H S TROP, MG, CBC, BMP, LIPID #### [address] Urea nitrogen [Mass/Vol] 10 mg/dL Normal 7-25 [facility] Comment on above: Performed By: #### H S TROP, MG, CBC, BMP, LIPID #### [facility] [address] [place] [address] [place] Basophils Auto (Bld) [#/Vol] Ordered By: Rigoberto Alfaro on 07-07-2024 Basophils (Bld) [#/Vol] Automated basophil count 0.0-0.2 [facility] Basophils/100 WBC Auto (Bld) Ordered By: Rigoberto Alfaro on 07-07-2024 Basophils/100 WBC (Bld) Automated basophil % . [facility] Calcium [Mass/volume] in Ser um or PlasmaOrdered By: Rigoberto Alfaro on 07-07-2024 Calcium [Mass/Vol] Calcium [Mass/volume ] in Serum or Plasma 8.6-10.3 [facility] Carbon dioxide, total [Moles /volume] in Serum or PlasmaOrdered By: Rigoberto Alfaro on 07-07-2024 CO2 [Moles/Vol] Carbon dioxide, tota l [Moles/volume] in Serum or Plasma 21.0-31.0 [facility] Chloride [Moles/volume] in S edouard or PlasmaOrdered By: Rigoberto Alfaro on 07-07-2024 Chloride [Moles/Vol] Chloride [Moles/vol ume] in Serum or Plasma 98-107 [facility] Complete Blood Count Auto Di ffon 07-07-2024 Basophils (Bld) [#/Vol] 0.0 10*3/uL Normal 0.0-0.2 [facility] Comment on above: Result Comment: PERF ORMED BY: [facility] [address] [facility] [address] PATHOLOGIST TAILOR'S AIDE BEN MARISCAL M.D. Performed By: #### H S TROP, MG, CBC, BMP, LIPID #### [facility] [address] [place] [address] [place] Basophils/100 WBC (Bld) 0.8 % Normal . [facility] Comment on above: Performed By: #### H S TROP, MG, CBC, BMP, LIPID #### [facility] [address] [place] [address] [place] Eosinophils (Bld) [#/Vol] 0.2 10*3/uL Normal 0.0-0.45 [facility] Comment on above: Performed By: #### H S TROP, MG, CBC, BMP, LIPID #### [address] Eosinophils/100 WBC (Bld) 4.8 % Normal . [facility] Comment on above: Performed By: #### H S TROP, MG, CBC, BMP, LIPID #### [address] Erythrocyte distribution width (RBC) [Ratio] 14.0 % Normal 11.9-15.3 [facility] Comment on above: Performed By: #### H S TROP, MG, CBC, BMP, LIPID #### [address] Hematocrit (Bld) [Volume fraction] 38.7 % Normal 34.0-46.4 [facility] Comment on above: Performed By: #### H S TROP, MG, CBC, BMP, LIPID #### [address] Hemoglobin (Bld) [Mass/Vol] 13.2 g/dL Normal 11.8-15.4 [facility] Comment on above: Performed By: #### H S TROP, MG, CBC, BMP, LIPID #### [address] Lymphocytes (Bld) [#/Vol] 1.5 10*3/uL Normal 1.00-4.8 [facility] Comment on above: Performed By: #### H S TROP, MG, CBC, BMP, LIPID #### [address] Lymphocytes/100 WBC (Bld) 36.1 % Normal . [facility] Comment on above: Performed By: #### H S TROP, MG, CBC, BMP, LIPID #### [address] MCH (RBC) [Entitic mass] 28.5 pg Normal 24.7-34.3 [facility] Comment on above: Performed By: #### H S TROP, MG, CBC, BMP, LIPID #### [address] MCV (RBC) [Entitic vol] 83.6 fL Normal 80-100 [facility] Comment on above: Performed By: #### H S TROP, MG, CBC, BMP, LIPID #### [address] Mean Corpuscular HGB Conc 34.1 g/dL Normal 32.0-35.0 [facility] Comment on above: Performed By: #### H S TROP, MG, CBC, BMP, LIPID #### [address] Monocytes (Bld) [#/Vol] 0.4 10*3/uL Normal 0.0-0.8 [facility] Comment on above: Performed By: #### H S TROP, MG, CBC, BMP, LIPID #### [address] Monocytes/100 WBC (Bld) 16.84 % Normal 0.00-20.00 [facility] Comment on above: Performed By: #### H S TROP, MG, CBC, BMP, LIPID #### [address] Monocytes/100 WBC (Bld) 10.4 % Normal . [facility] Comment on above: Performed By: #### H S TROP, MG, CBC, BMP, LIPID #### [address] Neutrophils (Bld) [#/Vol] 2.0 10*3/uL Normal 1.8-7.7 [facility] Comment on above: Performed By: #### H S TROP, MG, CBC, BMP, LIPID #### [address] Neutrophils/100 WBC (Bld) 47.9 % Normal . [facility] Comment on above: Performed By: #### H S TROP, MG, CBC, BMP, LIPID #### [address] NRBC% 0.3 /100{WBC} Normal 0-0.5 [facility] Comment on above: Performed By: #### H S TROP, MG, CBC, BMP, LIPID #### [address] Platelet mean volume (Bld) [Entitic vol] 7.1 fL Normal 6.3-10.7 [facility] Comment on above: Performed By: #### H S TROP, MG, CBC, BMP, LIPID #### [address] Platelets (Bld) [#/Vol] 161 10*3/uL Normal 150-450 [facility] Comment on above: Performed By: #### H S TROP, MG, CBC, BMP, LIPID #### [address] RBC (Bld) [#/Vol] 4.63 10*6/uL Normal 3.60-5.00 [facility] Comment on above: Performed By: #### H S TROP, MG, CBC, BMP, LIPID #### [address] WBC (Bld) [#/Vol] 4.1 10*3/uL Normal 3.8-11.6 [facility] Comment on above: Performed By: #### H S TROP, MG, CBC, BMP, LIPID #### [address] Creatine Kinaseon 07-07-2024 CK [Catalytic activity/Vol] 299 U/L High 30-223 [facility] Comment on above: Performed By: #### H S TROP, MG, CBC, BMP, LIPID #### [address] Creatine kinase [Enzymatic a ctivity/volume] in Serum or PlasmaOrdered By: Rigoberto Alfaro on 07-07-2024 CK [Catalytic activity/Vol] Creatine kinase [Enzymatic activity/volume] in Serum or Plasma High 30-223 [facility] Creatinine [Mass/volume] in Serum or PlasmaOrdered By: Rigoberto Alfaro on 07-07-2024 Creatinine [Mass/Vol] Creatinine [Mass/v olume] in Serum or Plasma 0.60-1.20 [facility] ECG 12 lead ECGon 07-07-2024 ECG 12 lead ECG [facility] [place] [address] Electrocardiograph Report Signed Patient: Keely Chopra MR#: [id number] : 1955 Acct:[id number] Age/Sex: 68 / F ADM Date: 07/07/24 Loc: ER Room: Type: [facility] [place] ER Attending Dr: Ordering Provider: Rigoberto Alfaro DO Date of Service: 07/07/24 ECG/ECG 12 lead ECG: Chest Pain Copies to: Test Reason : Blood Pressure : 204/88 mmHG Vent. Rate : 66 BPM Atrial Rate : 66 BPM P-R Int : 162 ms QRS Dur : 80 ms QT Int : 402 ms P-R-T Axes : 42 18 44 degrees QTcB Int : 421 ms Normal sinus rhythm Confirmed by Rigoberto Alfaro DO ([id number]) on 07/07/2024 3:58:58 PM Referred By: Electronically Signed By: Rigoberto Alfaro DO Transcribed By: MUS Signed By Rigoberto Alfaro DO [id number] Normal [facility] Eosinophils Auto (Bld) [#/Vo l]Ordered By: Rigoberto Alfaro on 07-07-2024 Eosinophils (Bld) [#/Vol] Automated eosinophil count 0.0-0.45 [facility] Eosinophils/100 WBC Auto (Bl d)Ordered By: Rigoberto Alfaro on 07-07-2024 Eosinophils/100 WBC (Bld) Automated eosinophil % . [facility] Erythrocyte distribution wid th Auto (RBC) [Ratio]Ordered By: Rigoberto Alfaro on 07-07-2024 Erythrocyte distribution width (RBC) [Ratio] Erythrocyte distribution width [Ratio] by Automated count 11.9-15.3 [facility] Glucose [Mass/volume] in Ser um or PlasmaOrdered By: Rigoberto Alfaro on 07-07-2024 Glucose [Mass/Vol] Glucose [Mass/volume ] in Serum or Plasma High 70-100 [facility] Comment on above: ADA recommended refe rence rangeRandom Glucose Reference Range is dependent on time and content of last meal. Glucose of more than 200 mg/dL in a nonstressed, ambulatory subject supports the diagnosis of Diabetes Mellitus. Hematocrit Auto (Bld) [Volum e fraction]Ordered By: Rigoberto Alfaro on 07-07-2024 Hematocrit (Bld) [Volume fraction] Hematocrit [Volume Fraction] of Blood by Automated count 34.0-46.4 [facility] Hemoglobin [Mass/volume] in BloodOrdered By: Rigoberto Alfaro on 07-07-2024 Hemoglobin (Bld) [Mass/Vol] Hemoglobin [Mass/volume] in Blood 11.8-15.4 [facility] INR in Platelet poor plasma by Coagulation assayOrdered By: Rigoberto Alfaro on 07-07-2024 INR Coag (PPP) [Relative time] INR in Platelet poor plasma by Coagulation assay [facility] Comment on above: INR Therapeutic Rang e A) Pre- and Peroperative OAT started two weeks before surgery. NOT HIP SURGERY: 1.5 - 2.5 HIP SURGERY: 2 - 3B) Primary and secondary prevention of venous THROMBOSIS: 2 - 3C) Active venous thrombosis, pulmonary embolismand prevention of recurrent venous thrombosis: 2 - 3D) Prevention of arterial thromboembolismincluding patients with mechanical heart valves: 3 - 4.5 Leukocytes [#/volume] correc dionne for nucleated erythrocytes in Blood by Automated counOrdered By: Rigoberto Alfaro on 07-07-2024 WBC corrected for nucl RBC Auto (Bld) [#/Vol] Leukocytes [#/volume] corrected for nucleated erythrocytes in Blood by Automated coun 3.8-11.6 [facility] Lymphocytes Auto (Bld) [#/Vo l]Ordered By: Rigoberto Alfaro on 07-07-2024 Lymphocytes (Bld) [#/Vol] Lymphocytes [#/volume] in Blood by Automated count 1.00-4.8 [facility] Lymphocytes/100 WBC Auto (Bl d)Ordered By: Rigoberto Alfaro on 07-07-2024 Lymphocytes/100 WBC (Bld) Lymphocytes/100 leukocytes in Blood by Automated count . [facility] MCH Auto (RBC) [Entitic mass ]Ordered By: Rigoberto Alfaro on 07-07-2024 MCH (RBC) [Entitic mass] MCH [Entitic mass] by Automated count 24.7-34.3 [facility] MCHC Auto (RBC) [Mass/Vol]Or dered By: Rigoberto Alfaro on 07-07-2024 MCHC (RBC) [Mass/Vol] MCHC [Mass/volume] by Automated count 32.0-35.0 [facility] MCV Auto (RBC) [Entitic vol] Ordered By: Rigoberto Alfaro on 07-07-2024 MCV (RBC) [Entitic vol] MCV [Entitic vol ume] by Automated count 80-100 [facility] Monocyte distribution width [Entitic volume] in Blood by AutomatedOrdered By: Rigoberto Alfaro on 07-07-2024 Monocyte distribution width Auto (Bld) [Entitic vol] Monocyte distribution width [Entitic volume] in Blood by Automated 0.00-20.00 [facility] Monocytes Auto (Bld) [#/Vol] Ordered By: Rigoberto Alfaro on 07-07-2024 Monocytes (Bld) [#/Vol] Automated blood monocyte count 0.0-0.8 [facility] Monocytes/100 WBC Auto (Bld) Ordered By: Rigoberto Alfaro on 07-07-2024 Monocytes/100 WBC (Bld) Automated monocyte % . [facility] Natriuretic peptide B [Mass/ Vol]Ordered By: Rigoberto Alfaro on 07-07-2024 Natriuretic peptide B (Bld) [Mass/Vol] BNP ser/plas High 5-100 [facility] Neutrophils Auto (Bld) [#/Vo l]Ordered By: Rigoberto Alfaro on 07-07-2024 Neutrophils (Bld) [#/Vol] Neutrophils [#/volume] in Blood by Automated count 1.8-7.7 [facility] Neutrophils/100 WBC Auto (Bl d)Ordered By: Rigoberto Alfaro on 07-07-2024 Neutrophils/100 WBC (Bld) Automated neutrophil % . [facility] No Panel InformationOrdered By: Rigoberto Alfaro on 07-07-2024 Estimated GFR (CKD-EPI) > 60.0 mL/Min [facility] Creatinine Clearance (Chem 74.97 [facility] Nucleated erythrocytes [Pres ence] in Blood by Automated countOrdered By: Rigoberto Alfaro on 07-07-2024 Nucleated RBC Auto Ql (Bld) Nucleated erythrocytes [Presence] in Blood by Automated count 0-0.5 [facility] Platelet mean volume Auto (B ld) [Entitic vol]Ordered By: Rigoberto Alfaro on 07-07-2024 Platelet mean volume (Bld) [Entitic vol] Platelet mean volume [Entitic volume] in Blood by Automated count 6.3-10.7 [facility] Platelets Auto (Bld) [#/Vol] Ordered By: Rigoberto Alfaro on 07-07-2024 Platelets (Bld) [#/Vol] Platelets [#/vol ume] in Blood by Automated count 150-450 [facility] Potassium [Moles/volume] in Serum or PlasmaOrdered By: Rigoberto Alfaro on 07-07-2024 Potassium [Moles/Vol] Potassium [Moles/v olume] in Serum or Plasma 3.5-5.1 [facility] Prothrombin Time INRon 07-07 INR Coag (PPP) [Relative time] 1.0 {INR} Normal [facility] Comment on above: Result Comment: INR Therapeutic Range A) Pre- and Peroperative OAT started two weeks before surgery. NOT HIP SURGERY: 1.5 - 2.5 HIP SURGERY: 2 - 3 B) Primary and secondary prevention of venous THROMBOSIS: 2 - 3 C) Active venous thrombosis, pulmonary embolism and prevention of recurrent venous thrombosis: 2 - 3 D) Prevention of arterial thromboembolism including patients with mechanical heart valves: 3 - 4.5 PERFORMED BY: [address] [place] [address] PATHOLOGIST TAILOR'S AIDE BEN MARISCAL M.D. Performed By: #### H S TROP, MG, CBC, BMP, LIPID #### [place] [id number] [facility] PT Coag (PPP) [Time] 11.0 s Normal 9.0-12.9 [facility] Comment on above: Result Comment: A he matocrit value greater than 55% may lead to inaccurate results in coagulation testing. Patients having hematocrit values >55% require a special collection tube for coagulation studies. Please contact the laboratory at [phone] for redraw instructions. Performed By: #### H S TROP, MG, CBC, BMP, LIPID #### [facility] [address] Prothrombin time (PT)Ordered By: Rigoberto Alfaro on 07-07-2024 PT Coag (PPP) [Time] Prothrombin time (PT) 9.0- 12.9 [facility] Comment on above: A hematocrit value g reater than 55% may lead to inaccurate results in coagulation testing. Patients having hematocrit values >55% require a special collection tube for coagulation studies. Please contact the laboratory at [phone] for redraw instructions. RBC Auto (Bld) [#/Vol]Ordere d By: Rigoberto Alfaro on 07-07-2024 RBC (Bld) [#/Vol] Erythrocytes [#/volu me] in Blood by Automated count 3.60-5.00 [facility] Serum or plasma anion gap de terminationOrdered By: Rigoberto Alfaro on 07-07-2024 Anion gap [Moles/Vol] Serum or plasma an ion gap determination 6.0-15.0 [facility] Sodium [Moles/volume] in Ser um or PlasmaOrdered By: Rigoberto Alfaro on 07-07-2024 Sodium [Moles/Vol] Sodium [Moles/volume ] in Serum or Plasma 136-145 [facility] Troponin I High Sensitivityo n 07-07-2024 Troponin I High Sensitivity 146 Off scale high 0-15 [facility] Comment on above: Result Comment: Crit ical Result : Called to and read back by: KEM DUVAL at: 07/07/2024 10:24:21 by:JOSSY The Troponin units of report have been changed to meet the Chest Pain Accreditation requirement, element EC5.M1l2. Troponin units are changed from pg/ml to ng/L. Also, the decimal is removed and results are in whole numbers. PERFORMED BY: [address] [address] PATHOLOGIST TAILOR'S AIDE BEN MARISCAL M.D. Performed By: #### H S TROP, MG, CBC, BMP, LIPID #### [facility] [address] [place] [address] [facility] Troponin I High Sensitivity 158 Off scale high 0-15 [facility] Comment on above: Result Comment: Crit ical Result : Called to and read back by: KEM DUVAL at: 07/07/2024 08:00:55 by:JOSSY The Troponin units of report have been changed to meet the Chest Pain Accreditation requirement, element EC5.M1l2. Troponin units are changed from pg/ml to ng/L. Also, the decimal is removed and results are in whole numbers. PERFORMED BY: [address] [address] PATHOLOGIST TAILOR'S AIDE BEN MARISCAL M.D. Performed By: #### H S TROP, MG, CBC, BMP, LIPID #### [facility] [address] [place] [address] [facility] Troponin I.cardiac [Mass/vol ume] in Serum or Plasma by Detection limit <= 0.01 ng/Ordered By: Rigoberto Alfaro on 07-07-2024 Troponin I.cardiac DL <= 0.01 ng/mL [Mass/Vol] Troponin I.cardiac [Mass/volume] in Serum or Plasma by Detection limit <= 0.01 ng/ Critically high 0-15 [facility] Comment on above: Critical Result : Ca lled to and read back by: KEM DUVAL at: 07/07/2024 10:24:21 by:JOSSYThe Troponin units of report have been changed to meet the Chest Pain Accreditation requirement, element EC5.M1l2. Troponin units are changed from pg/ml to ng/L. Also, the decimal is removed and results are in whole numbers. Urea nitrogen [Mass/volume] in Serum or PlasmaOrdered By: Rigoberto Alfaro on 07-07-2024 Urea nitrogen [Mass/Vol] Urea nitrogen [Mass/volume] in Serum or Plasma 7-25 [facility] WBC Auto (Bld) [#/Vol]Ordere d By: Rigoberto Alfaro on 07-07-2024 WBC (Bld) [#/Vol] Leukocytes [#/volume ] in Blood by Automated count 3.8-11.6 [facility] X-ray reportOrdered By: Rigoberto Lane on 07-07-2024 Study report [facility] Main [place] [id number] XRay Report Signed Patient: Keely Chopra MR#: [id number] : 1955 Acct:[id number] Age/Sex: 68 / F ADM Date: 5 Loc: ER Room: Type: [facility] ER Attending Dr: Copies to: Rigoberto Alfaro DO~ Ordering Provider: Rigoberto Alfaro DO Date of Service: 07/07/24 XR/XR chest 2V*: Chest Pain Plain film chest 2 view HISTORY: Dizziness. Chest pain COMPARISON: None FINDINGS: SUPPORT DEVICES: None POSTSURGICAL CHANGES: None HEART: Within normal limits PULMONARY KATI: Within normal limits MEDIASTINUM: Unremarkable LUNGS AND PLEURA: No acute lung process, pleural effusion or pneumothorax identified. BONY STRUCTURES: Thoracic spondylosis/hyperostosis. ADDITIONAL FINDINGS None XR/XR chest 2V* IMPRESSION: No acute process. Impression dictated by: Shukri Lane M.D.07/07/2024 8:15 AM Dictation Location: [place] [address] Transcribed By: [facility] 07/07/24 0815 Dictated By: Shukri Lane DO 07/07/24 0815 Signed By: 07/07/24 0815 [facility] XR chest 2V*on 07-07-2024 XR chest 2V* [facility] Main [address] [address] XRay Report Signed Patient: Keely Chopra MR#: [id number] : 1955 Acct:[id number] Age/Sex: 68 / F ADM Date: 07/07/24 Loc: ER Room: Type: [facility] ER Attending Dr: Copies to: Rigoberto Alfaro DO Ordering Provider: Rigoberto Alfaro DO Date of Service: 07/07/24 XR/XR chest 2V*: Chest Pain Plain film chest 2 view HISTORY: Dizziness. Chest pain COMPARISON: None FINDINGS: SUPPORT DEVICES: None POSTSURGICAL CHANGES: None HEART: Within normal limits PULMONARY KATI: Within normal limits MEDIASTINUM: Unremarkable LUNGS AND PLEURA: No acute lung process, pleural effusion or pneumothorax identified. BONY STRUCTURES: Thoracic spondylosis/hyperostosis. ADDITIONAL FINDINGS None XR/XR chest 2V* IMPRESSION: No acute process. Impression dictated by: Shukri Lane M.D.07/07/2024 8:15 AM Dictation Location: [facility]- Transcribed By: [facility] 07/07/[address]14 Dictated By: Shukri Lane DO 07/07/24814 Signed By: 07/07/24814 Normal [facility] Anti-Xa UF Heparinon 025 Anti-Xa UF Heparin 0.19 [IU]/mL Low 0.30-0.70 [facility] Comment on above: Result Comment: Use the aPTT protocol when triglycerides are > 800 mg/dL, total bilirubin is > 20 mg/dL and/or patient has received a DOAC, Fondaparinux or LMWH within 72 hours AND baseline anti-Xa level is > 0.7 units/mL PERFORMED BY: [place] [address] PATHOLOGIST TAILOR'S AIDE BEN MARISCAL M.D. Performed By: #### H S TROP, MG, CBC, BMP, LIPID #### [facility] [address] [place] [address] Anti-Xa UF Heparin 0.31 [IU]/mL Normal 0.30-0.70 [facility] Comment on above: Result Comment: Use the aPTT protocol when triglycerides are > 800 mg/dL, total bilirubin is > 20 mg/dL and/or patient has received a DOAC, Fondaparinux or LMWH within 72 hours AND baseline anti-Xa level is > 0.7 units/mL PERFORMED BY: [place] [address] PATHOLOGIST TAILOR'S AIDE BEN MARISCAL M.D. Performed By: #### H S TROP, MG, CBC, BMP, LIPID #### [address] Basic Metabolic Panelon 06-18 Anion gap [Moles/Vol] 10.5 mmol/L Normal 6.0-15.0 [facility] Comment on above: Performed By: #### H S TROP, MG, CBC, BMP, LIPID #### [address] Calcium [Mass/Vol] 9.3 mg/dL Normal 8.6-10.3 [facility] Comment on above: Performed By: #### H S TROP, MG, CBC, BMP, LIPID #### [address] Chloride [Moles/Vol] 103 mmol/L Normal 98-107 [facility] Comment on above: Performed By: #### H S TROP, MG, CBC, BMP, LIPID #### [address] CO2 [Moles/Vol] 26.5 mmol/L Normal 21.0-31.0 [facility] Comment on above: Performed By: #### H S TROP, MG, CBC, BMP, LIPID #### [address] Creatinine [Mass/Vol] 0.81 mg/dL Normal 0.60-1.20 [facility] Comment on above: Performed By: #### H S TROP, MG, CBC, BMP, LIPID #### [place] [address] [place] Creatinine Clr Calc [facility] 79.48 Normal [facility] Comment on above: Performed By: #### H S TROP, MG, CBC, BMP, LIPID #### [place] [address] [place] GFR/1.73 sq M.predicted MDRD (S/P/Bld) [Vol rate/Area] mL/min/{1.73_m2} Normal [facility] Comment on above: Performed By: #### H S TROP, MG, CBC, BMP, LIPID #### [facility] [address] Glucose [Mass/Vol] 98 mg/dL Normal 70-100 [facility] Comment on above: Result Comment: [facility] Glucose Reference Range is dependent on time and content of last meal. Glucose of more than 200 mg/dL in a nonstressed, ambulatory subject supports the diagnosis of Diabetes Mellitus. ADA recommended reference range Performed By: #### H S TROP, MG, CBC, BMP, LIPID #### [facility] [address] Potassium [Moles/Vol] 4.0 mmol/L Normal 3.5-5.1 [facility] Comment on above: Performed By: #### H S TROP, MG, CBC, BMP, LIPID #### [facility] [address] Sodium [Moles/Vol] 136 mmol/L Normal 136-145 [facility] Comment on above: Performed By: #### H S TROP, MG, CBC, BMP, LIPID #### [facility] [address] Urea nitrogen [Mass/Vol] 10 mg/dL Normal 7-25 [facility] Comment on above: Performed By: #### H S TROP, MG, CBC, BMP, LIPID #### [address] Basophils Auto (Bld) [#/Vol] Ordered By: Akua Ellsworth on 07-06-2024 Basophils (Bld) [#/Vol] Automated basophil count 0.0-0.2 [facility] Basophils/100 WBC Auto (Bld) Ordered By: Akua Ellsworth on 07-06-2024 Basophils/100 WBC (Bld) Automated basophil % . [facility] Calcium [Mass/volume] in Ser um or PlasmaOrdered By: Akua Ellsworth on 07-06-2024 Calcium [Mass/Vol] Calcium [Mass/volume ] in Serum or Plasma 8.6-10.3 [facility] Carbon dioxide, total [Moles /volume] in Serum or PlasmaOrdered By: Akua Ellsworth on 07-06-2024 CO2 [Moles/Vol] Carbon dioxide, tota l [Moles/volume] in Serum or Plasma 21.0-31.0 [facility] Chloride [Moles/volume] in S edouard or PlasmaOrdered By: Akua Ellsworth on 07-06-2024 Chloride [Moles/Vol] Chloride [Moles/vol ume] in Serum or Plasma 98-107 [facility] Cholesterol [Mass/volume] in Serum or PlasmaOrdered By: Akua Ellsworth on 07-06-2024 Cholesterol [Mass/Vol] Cholesterol [Mass /volume] in Serum or Plasma 140-200 [facility] Comment on above: Chol less than 200 m g/dl low riskChol 201-239 mg/dl borderline riskChol 240 mg/dl and greater high risk Cholesterol in HDL [Mass/vol ume] in Serum or PlasmaOrdered By: Akua Ellsworth on 07-06-2024 Cholesterol in HDL [Mass/Vol] Serum or plasma high density lipoprotein (HDL) cholesterol measurement 23-92 [facility] Comment on above: HDL CHOL ATP-III CLA SSIFICATION Cardiovascular RiskHDL > or equal to 60 mg/dL LOWHDL < 40 mg/dL HIGH Cholesterol in LDL Calc [Mas s/Vol]Ordered By: Akua Ellsworth on 07-06-2024 Cholesterol in LDL [Mass/Vol] Cholesterol in LDL [Mass/volume] in Serum or Plasma by calculation High 0-100 [facility] Comment on above: LDL ATP III CLASSIFI CATIONLDL less than 100 mg/dL OptimalLDL 100-129 mg/dL Near or above optimalLDL 130-159 mg/dL Borderline highLDL 160-189 mg/dL HighLDL greater than 189 mg/dL Very high Cholesterol in VLDL Calc [Ma ss/Vol]Ordered By: Akua Ellsworth on 07-06-2024 Cholesterol in VLDL [Mass/Vol] Cholesterol in VLDL [Mass/volume] in Serum or Plasma by calculation [facility] Complete Blood Count Auto Di ffon 07-06-2024 Basophils (Bld) [#/Vol] 0.0 10*3/uL Normal 0.0-0.2 [facility] Comment on above: Result Comment: PERF ORMED BY: [place] [address] PATHOLOGIST TAILOR'S AIDE BEN MARISCAL M.D. Performed By: #### H S TROP, MG, CBC, BMP, LIPID #### [address] Basophils/100 WBC (Bld) 0.5 % Normal . [facility] Comment on above: Performed By: #### H S TROP, MG, CBC, BMP, LIPID #### [address] Eosinophils (Bld) [#/Vol] 0.1 10*3/uL Normal 0.0-0.45 [facility] Comment on above: Performed By: #### H S TROP, MG, CBC, BMP, LIPID #### [address] Eosinophils/100 WBC (Bld) 1.9 % Normal . [facility] Comment on above: Performed By: #### H S TROP, MG, CBC, BMP, LIPID #### [address] Erythrocyte distribution width (RBC) [Ratio] 13.9 % Normal 11.9-15.3 [facility] Comment on above: Performed By: #### H S TROP, MG, CBC, BMP, LIPID #### [address] Hematocrit (Bld) [Volume fraction] 36.8 % Normal 34.0-46.4 [facility] Comment on above: Performed By: #### H S TROP, MG, CBC, BMP, LIPID #### [address] Hemoglobin (Bld) [Mass/Vol] 12.9 g/dL Normal 11.8-15.4 [facility] Comment on above: Performed By: #### H S TROP, MG, CBC, BMP, LIPID #### [address] Lymphocytes (Bld) [#/Vol] 1.9 10*3/uL Normal 1.00-4.8 [facility] Comment on above: Performed By: #### H S TROP, MG, CBC, BMP, LIPID #### [address] Lymphocytes/100 WBC (Bld) 30.6 % Normal . [facility] Comment on above: Performed By: #### H S TROP, MG, CBC, BMP, LIPID #### [address] MCH (RBC) [Entitic mass] 28.9 pg Normal 24.7-34.3 [facility] Comment on above: Performed By: #### H S TROP, MG, CBC, BMP, LIPID #### [address] MCV (RBC) [Entitic vol] 82.4 fL Normal 80-100 [facility] Comment on above: Performed By: #### H S TROP, MG, CBC, BMP, LIPID #### [address] Mean Corpuscular HGB Conc 35.0 g/dL Normal 32.0-35.0 [facility] Comment on above: Performed By: #### H S TROP, MG, CBC, BMP, LIPID #### [address] Monocytes (Bld) [#/Vol] 0.5 10*3/uL Normal 0.0-0.8 [facility] Comment on above: Performed By: #### H S TROP, MG, CBC, BMP, LIPID #### [address] Monocytes/100 WBC (Bld) 8.2 % Normal . [facility] Comment on above: Performed By: #### H S TROP, MG, CBC, BMP, LIPID #### [address] Neutrophils (Bld) [#/Vol] 3.6 10*3/uL Normal 1.8-7.7 [facility] Comment on above: Performed By: #### H S TROP, MG, CBC, BMP, LIPID #### [address] Neutrophils/100 WBC (Bld) 58.8 % Normal . [facility] Comment on above: Performed By: #### H S TROP, MG, CBC, BMP, LIPID #### [address] NRBC% 0.1 /100{WBC} Normal 0-0.5 [facility] Comment on above: Performed By: #### H S TROP, MG, CBC, BMP, LIPID #### [address] Platelet mean volume (Bld) [Entitic vol] 7.4 fL Normal 6.3-10.7 [facility] Comment on above: Performed By: #### H S TROP, MG, CBC, BMP, LIPID #### [address] Platelets (Bld) [#/Vol] 168 10*3/uL Normal 150-450 [facility] Comment on above: Performed By: #### H S TROP, MG, CBC, BMP, LIPID #### [address] RBC (Bld) [#/Vol] 4.47 10*6/uL Normal 3.60-5.00 [facility] Comment on above: Performed By: #### H S TROP, MG, CBC, BMP, LIPID #### [address] WBC (Bld) [#/Vol] 6.1 10*3/uL Normal 3.8-11.6 [facility] Comment on above: Performed By: #### H S TROP, MG, CBC, BMP, LIPID #### [address] Creatinine [Mass/volume] in Serum or PlasmaOrdered By: Akua Ellsworth on 07-06-2024 Creatinine [Mass/Vol] Creatinine [Mass/v olume] in Serum or Plasma 0.60-1.20 [facility] ECG 12 lead ECGon 07-06-2024 ECG 12 lead ECG [facility] Main [address] [address] Electrocardiograph Report Signed Patient: Keely Chopra MR#: [id number] : 1955 Acct:[id number] Age/Sex: 68 / F ADM Date: 07/05/24 Loc: 3T Room: [address] [place] [address] Type: ADM IN Attending Dr: Christina Julien MD Ordering Provider: Christina Julien MD Date of Service: 07/06/24 ECG/ECG 12 lead ECG: monitor for NSTEMI/STEMI Copies to: Test Reason : Blood Pressure : */* mmHG Vent. Rate : 73 BPM Atrial Rate : 73 BPM P-R Int : 158 ms QRS Dur : 78 ms QT Int : 404 ms P-R-T Axes : -6 33 23 degrees QTcB Int : 445 ms Normal sinus rhythm Normal ECG When compared with ECG of 05-Jul-2024 23:52, (Unconfirmed) Nonspecific T wave abnormality now evident in Inferior leads Confirmed by Angel Gutierrez ([id number]) on 07/06/2024 2:54:36 PM Referred By: Electronically Signed By: Angel Gutierrez Transcribed By: MUS Signed By Angel Gutierrez MD 07/06/24 1454 Normal [facility] ECH echo transthoracicon ECH echo transthoracic [facility] Main [address] [address] Echocardiogram Signed Patient: Keely Chopra MR#: [id number] : 1955 Acct:[id number] Age/Sex: 68 / F ADM Date: 07/05/24 Loc: 3T Room: [address] [place] [address] Type: ADM IN Attending Dr: Christina Julien MD Ordering Provider: Mahendra Garcia MD Date of Service: 07/06/24 ECH/ECH echo transthoracic: afib Copies to: MD Angel Pryor MD Height: 62 in Weight: 264 lb Performed By: Negrita Orourke RDCS BSA: 2.1 m2 BP: 150/90 mmHg HR: 68 Reason For Study: afib History: HTN. Interpretation Summary Ejection Fraction = 55-60%. The left ventricular size and thickness are normal. The left ventricular wall motion is normal. A variety of Doppler measurements indicate normal left ventricular diastolic function. Mild aortic regurgitation. There is trace tricuspid regurgitation. There is no comparison study available. Procedure/Quality: A two-dimensional transthoracic echocardiogram with color flow, Doppler and injection of contrast agent Definity was performed. The study was technically suboptimal in quality due to poor acoustic windows . Left Ventricle: The left ventricular size and thickness are normal. Ejection Fraction = 55-60%. A variety of Doppler measurements indicate normal left ventricular diastolic function. The left ventricular wall motion is normal. Left Atrium: The left atrium appears normal in size. Right Atrium: The right atrium is not well visualized. Right Ventricle: The right ventricle is not well visualized. The right ventricle is grossly normal size. Aortic Valve: The aortic valve is not well visualized. No hemodynamically significant valvular aortic stenosis. Mild aortic regurgitation. Mitral Valve: The mitral valve is normal in structure. No significant mitral valve stenosis. Both leaflets are pliable and mobile. There is no mitral regurgitation noted. Tricuspid Valve: The tricuspid valve is not well visualized. There is trace tricuspid regurgitation. Pulmonic Valve: The pulmonic valve is not well visualized. No significant pulmonic regurgitation. Arteries: The aortic root is normal size. Pericardium/Pleura: No pericardial effusion seen. IVC/Hepatic Veins: The inferior vena cava is normal in size, with a normal collapsibility index. Measurements with Normals IVSd: 1.0 cm (0.7-1.1 cm)LVIDd: 3.7 cm (3.7-5.4 cm) LVPWd: 1.0 cm (0.7-1.1 cm)LVIDs: 2.5 cm (2.3-3.6 cm) LA dimension: 3.3 cm (2.3-4.0 cm)Ao root diam: 3.0 cm(2.0-3.6 cm) asc Aorta Diam: 3.0 cm(2.1-3.4cm) Doppler with Normals RVSP(TR): 29.8 mmHg (18-35mmHg) LV V1 max: 107.0 cm/sec (0.7-1.7m/s)MV E max alejandro: 86.4 cm/sec(0.8-1.3m/s) MV A max alejandro: 102.0 cm/sec(0.0-0.0m/s) MV E/A: 0.85 (<1.5) MMode/2D Measurements Calculations TAPSE: 2.7 cm FS: 32.4 % Ao root area: LVOT diam: 2.1 cm RV S Alejandro: EDV(Teich): 7.1 cm2 LVOT area: 3.5 cm2 13.8 cm/sec 58.1 ml ESV(Teich): 22.3 ml EF(Teich): 61.6 % __ LVLd ap4: 8.2 cm SV(MOD-sp4): LAV(MOD-sp4): LA A2 area: 17.4 cm2 EDV(MOD-sp4): 83.8 ml 43.0 ml 152.0 ml LAV(MOD-sp2): LA A4 area: 17.2 cm2 LVLs ap4: 6.9 cm 44.7 ml LA length (vol): ESV(MOD-sp4): 5.3 cm 68.2 ml LA vol: 47.9 ml EF(MOD-sp4): 55.1 % LA vol index: 22.3 ml/m2 Doppler Measurements Calculations MV dec time: MV V2 max: E/E' lat: 9.8 MV dec slope: 0.24 sec 95.7 cm/sec E/E' med: 13.7 MV max P.7 mmHg 354.0 cm/sec2 MV V2 mean: 65.5 cm/sec MV mean P.0 mmHg MV V2 VTI: 36.1 cm MVA(VTI): 2.4 cm2 __ Ao V2 max: AI max alejandro: LV V1 max PG: TV max P.0 mmHg 149.0 cm/sec 405.0 cm/sec 4.6 mmHg Ao max PG: AI max P.6 mmHg LV V1 mean P.9 mmHg AI dec slope: 3.0 mmHg Ao mean PG: LV V1 mean: 5.0 mmHg 207.5 cm/sec2 78.2 cm/sec Ao V2 mean: AI P1/2t: 571.7 msec LV V1 VTI: 104.0 cm/sec 24.6 cm Ao V2 VTI: 30.4 cm PATRICIA(I,D): 2.8 cm2 PATRICIA(V,D): 2.5 cm2 __ TR max alejandro: 259.0 cm/sec TR max P.8 mmHg RAP systole: 3.0 mmHg Measurements from QLAB CI (HM): ED Mass (HM): LAEF (HM): 63.0 % BSA (): 2.1 m2 178.0 grams 2.5 l/min/m2 __ LEYDI (HM): LAVmax (HM): LAVmin (HM): 29.0 ml Pat Height (HM): 37.0 ml/m2 78.0 ml 157.0 cm __ Pat Weight (): 119.6 kg QLAB Heart Model EDV ()_phl: 159.0 ml EF ()_phl: 50.0 % ED Current ()_phl: 60.0 % ESV ()_phl: 79.0 ml HR ()_phl: 66.0 BPMES Current ()_phl: 30.0 % LV Length ED (HM)_phl: 93.0 mmSV ()_phl: 80.0 ml ED Default ()_phl: 60.0 % LV Length ES ()_phl: 73.0 mm ES Default ()_phl: 30.0 % Transcribed By: FRANTZ Performed At: 07/06/24 0904 Signed By: Angel Gutierrez MD 07/06/24 1440 Normal [facility] Eosinophils Auto (Bld) [#/Vo l]Ordered By: Akua Ellsworth on 07-06-2024 Eosinophils (Bld) [#/Vol] Automated eosinophil count 0.0-0.45 [facility] Eosinophils/100 WBC Auto (Bl d)Ordered By: Akua Ellsworth on 07-06-2024 Eosinophils/100 WBC (Bld) Automated eosinophil % . [facility] Erythrocyte distribution wid th Auto (RBC) [Ratio]Ordered By: Akua Ellsworth on 07-06-2024 Erythrocyte distribution width (RBC) [Ratio] Erythrocyte distribution width [Ratio] by Automated count 11.9-15.3 [facility] Glucose [Mass/volume] in Ser um or PlasmaOrdered By: Akua Ellsworth on 07-06-2024 Glucose [Mass/Vol] Glucose [Mass/volume ] in Serum or Plasma 70-100 [facility] Comment on above: ADA recommended refe rence rangeRandom Glucose Reference Range is dependent on time and content of last meal. Glucose of more than 200 mg/dL in a nonstressed, ambulatory subject supports the diagnosis of Diabetes Mellitus. Hematocrit Auto (Bld) [Volum e fraction]Ordered By: Akua Ellsworth on 07-06-2024 Hematocrit (Bld) [Volume fraction] Hematocrit [Volume Fraction] of Blood by Automated count 34.0-46.4 [facility] Hemoglobin [Mass/volume] in BloodOrdered By: Akua Ellsworth on 07-06-2024 Hemoglobin (Bld) [Mass/Vol] Hemoglobin [Mass/volume] in Blood 11.8-15.4 [facility] Heparin anti-Xa unfractionat edOrdered By: Akua Ellsworth on 07-06-2024 Heparin unfractionated Chromogenic method Qn (PPP) Heparin anti-Xa unfractionated Low 0.30-0.70 [facility] Comment on above: Use the aPTT protoco l when triglycerides are > 800 mg/dL,total bilirubin is > 20 mg/dL and/or patient has received aDOAC, Fondaparinux or LMWH within 72 hours AND baselineanti-Xa level is > 0.7 units/mL Leukocytes [#/volume] correc dionne for nucleated erythrocytes in Blood by Automated counOrdered By: Akua Ellsworth on 07-06-2024 WBC corrected for nucl RBC Auto (Bld) [#/Vol] Leukocytes [#/volume] corrected for nucleated erythrocytes in Blood by Automated coun 3.8-11.6 [facility] Lipid Panelon 07-06-2024 Cholesterol [Mass/Vol] 196 mg/dL Normal 140-200 [facility] Comment on above: Result Comment: Chol less than 200 mg/dl low risk Chol 201-239 mg/dl borderline risk Chol 240 mg/dl and greater high risk Performed By: #### H S TROP, MG, CBC, BMP, LIPID #### [facility] [address] Cholesterol in HDL [Mass/Vol] 42 mg/dL Normal 23-92 [facility] Comment on above: Result Comment: HDL CHOL ATP-III CLASSIFICATION Cardiovascular Risk HDL > or equal to 60 mg/dL LOW HDL < 40 mg/dL HIGH Performed By: #### H S TROP, MG, CBC, BMP, LIPID #### [facility] [address] Cholesterol.total/Awilda sterol in HDL [Mass ratio] 4.7 {ratio} Normal <5.0 [facility] Comment on above: Result Comment: PERF ORMED BY: [place] [address] PATHOLOGIST TAILOR'S AIDE BEN MARISCAL M.D. Performed By: #### H S TROP, MG, CBC, BMP, LIPID #### [address] LDL Cholesterol,Calculated 129 mg/dL High 0-100 [facility] Comment on above: Result Comment: LDL ATP III CLASSIFICATION LDL less than 100 mg/dL Optimal LDL 100-129 mg/dL Near or above optimal LDL 130-159 mg/dL Borderline high LDL 160-189 mg/dL High LDL greater than 189 mg/dL Very high Performed By: #### H S TROP, MG, CBC, BMP, LIPID #### [facility] [address] Triglyceride w/Reflex 126 mg/dL Normal 0-149 [facility] Comment on above: Result Comment: TRIG ATP III CLASSIFICATION TRIG less than 150 mg/dL Normal TRIG 150-199 mg/dL Borderline high TRIG 200-500 mg/dL High TRIG greater than 500 mg/dL Very high Standard traceable to the Center for Disease Conrtrol and Prevention (CDC) test method. Performed By: #### H S TROP, MG, CBC, BMP, LIPID #### [facility] [address] VLDL CHOLESTEROL 25 mg/dL Normal [facility] Comment on above: Performed By: #### H S TROP, MG, CBC, BMP, LIPID #### [facility] [address] Lymphocytes Auto (Bld) [#/Vo l]Ordered By: Akua Ellsworth on 07-06-2024 Lymphocytes (Bld) [#/Vol] Lymphocytes [#/volume] in Blood by Automated count 1.00-4.8 [facility] Lymphocytes/100 WBC Auto (Bl d)Ordered By: Akua Ellsworth on 07-06-2024 Lymphocytes/100 WBC (Bld) Lymphocytes/100 leukocytes in Blood by Automated count . [facility] [facility] MCH Auto (RBC) [Entitic mass ]Ordered By: Akua Ellsworth on 07-06-2024 MCH (RBC) [Entitic mass] MCH [Entitic mass] by Automated count 24.7-34.3 [facility] MCHC Auto (RBC) [Mass/Vol]Or dered By: Akua Ellsworth on 07-06-2024 MCHC (RBC) [Mass/Vol] MCHC [Mass/volume] by Automated count 32.0-35.0 [facility] MCV Auto (RBC) [Entitic vol] Ordered By: Akua Ellsworth on 07-06-2024 MCV (RBC) [Entitic vol] MCV [Entitic vol ume] by Automated count 80-100 [facility] Magnesiumon 07-06-2024 Magnesium [Mass/Vol] 1.9 mg/dL Normal 1.9-2.7 [facility] Comment on above: Performed By: #### H S TROP, MG, CBC, BMP, LIPID #### [facility] [address] Magnesium [Mass/volume] in S [place] or PlasmaOrdered By: Akua Ellsworth on 07-06-2024 Magnesium [Mass/Vol] Magnesium [Mass/vol ume] in Serum or Plasma 1.9-2.7 [facility] Monocytes Auto (Bld) [#/Vol] Ordered By: Akua Ellsworth on 07-06-2024 Monocytes (Bld) [#/Vol] Automated blood monocyte count 0.0-0.8 [facility] Monocytes/100 WBC Auto (Bld) Ordered By: Akua Ellsworth on 07-06-2024 Monocytes/100 WBC (Bld) Automated monocyte % . [facility] Neutrophils Auto (Bld) [#/Vo l]Ordered By: Akua Ellsworth on 07-06-2024 Neutrophils (Bld) [#/Vol] Neutrophils [#/volume] in Blood by Automated count 1.8-7.7 [facility] Neutrophils/100 WBC Auto (Bl d)Ordered By: Akua Ellsworth on 07-06-2024 Neutrophils/100 WBC (Bld) Automated neutrophil % . [facility] No Panel InformationOrdered By: Akua Ellsworth on 07-06-2024 Estimated GFR (CKD-EPI) > 60.0 mL/Min [facility] Creatinine Clearance (Chem 79.48 [facility] Nucleated erythrocytes [Pres ence] in Blood by Automated countOrdered By: Akua Ellsworth on 07-06-2024 Nucleated RBC Auto Ql (Bld) Nucleated erythrocytes [Presence] in Blood by Automated count 0-0.5 [facility] Platelet mean volume Auto (B ld) [Entitic vol]Ordered By: Akua Ellsworth on 07-06-2024 Platelet mean volume (Bld) [Entitic vol] Platelet mean volume [Entitic volume] in Blood by Automated count 6.3-10.7 [facility] Platelets Auto (Bld) [#/Vol] Ordered By: Akua Ellsworth on 07-06-2024 Platelets (Bld) [#/Vol] Platelets [#/vol ume] in Blood by Automated count 150-450 [facility] Potassium [Moles/volume] in Serum or PlasmaOrdered By: Akua Ellsworth on 07-06-2024 Potassium [Moles/Vol] Potassium [Moles/v olume] in Serum or Plasma 3.5-5.1 [facility] RBC Auto (Bld) [#/Vol]Ordere d By: Akua Ellsworth on 07-06-2024 RBC (Bld) [#/Vol] Erythrocytes [#/volu me] in Blood by Automated count 3.60-5.00 [facility] Serum or plasma anion gap de terminationOrdered By: Akua Ellsworth on 07-06-2024 Anion gap [Moles/Vol] Serum or plasma an ion gap determination 6.0-15.0 [facility] Serum or plasma total choles terol/high density lipoprotein (HDL) cholesterol mass ratOrdered By: Akua Ellsworth on 07-06-2024 Cholesterol.total/Awilda sterol in HDL [Mass ratio] Serum or plasma total cholesterol/high density lipoprotein (HDL) cholesterol mass rat <5.0 [facility] Sodium [Moles/volume] in Ser um or PlasmaOrdered By: Akua Ellsworth on 07-06-2024 Sodium [Moles/Vol] Sodium [Moles/volume ] in Serum or Plasma 136-145 [facility] Triglyceride [Mass/volume] i n Serum or PlasmaOrdered By: Akua Ellsworth on 07-06-2024 Triglyceride [Mass/Vol] Triglyceride [Ma ss/volume] in Serum or Plasma 0-149 [facility] Comment on above: TRIG ATP III CLASSIF ICATIONTRIG less than 150 mg/dL NormalTRIG 150-199 mg/dL Borderline highTRIG 200-500 mg/dL High TRIG greater than 500 mg/dL Very highStandard traceable to the Center for Disease Conrtrol and Prevention (CDC) test method. Troponin I High Sensitivityo n 07-06-2024 Troponin I High Sensitivity 308 Off scale high 0-15 [facility] Comment on above: Result Comment: Crit ical Result : Called to and read back by: SILVER GRACIA at: 07/06/2024 11:31:26 by:[email or web address] The Troponin units of report have been changed to meet the Chest Pain Accreditation requirement, element EC5.M1l2. Troponin units are changed from pg/ml to ng/L. Also, the decimal is removed and results are in whole numbers. PERFORMED BY: [place] [address] PATHOLOGIST TAILOR'S AIDE BEN MARISCAL M.D. Performed By: #### H S TROP, MG, CBC, BMP, LIPID #### [address] Troponin I High Sensitivity 382 Off scale high 0-15 [facility] Comment on above: Result Comment: Crit ical Result : Called to and read back by: AKUA MCINTOSH at: 07/06/2024 08:28:04 by:[id number] The Troponin units of report have been changed to meet the Chest Pain Accreditation requirement, element EC5.M1l2. Troponin units are changed from pg/ml to ng/L. Also, the decimal is removed and results are in whole numbers. PERFORMED BY: [place] [address] PATHOLOGIST TAILOR'S AIDE BEN MARISCAL M.D. Performed By: #### H S TROP, MG, CBC, BMP, LIPID #### [address] Troponin I.cardiac [Mass/vol ume] in Serum or Plasma by Detection limit <= 0.01 ng/Ordered By: Emerald Baker on 07-06-2024 Troponin I.cardiac DL <= 0.01 ng/mL [Mass/Vol] Troponin I.cardiac [Mass/volume] in Serum or Plasma by Detection limit <= 0.01 ng/ Critically high 0-15 [facility] Comment on above: Critical Result : Ca lled to and read back by: SILVER GRACIA at: 07/06/2024 11:31:26 by:RGThe Troponin units of report have been changed to meet the Chest Pain Accreditation requirement, element EC5.M1l2. Troponin units are changed from pg/ml to ng/L. Also, the decimal is removed and results are in whole numbers. Urea nitrogen [Mass/volume] in Serum or PlasmaOrdered By: Akua Ellsworth on 07-06-2024 Urea nitrogen [Mass/Vol] Urea nitrogen [Mass/volume] in Serum or Plasma 7- [facility] WBC Auto (Bld) [#/Vol]Ordere d By: Akua Ellsworth on 07-06-2024 WBC (Bld) [#/Vol] Leukocytes [#/volume ] in Blood by Automated count 3.8-11.6 [facility] Anti-Xa UF Heparinon 025 Anti-Xa UF Heparin 0.04 [IU]/mL Low 0.30-0.70 [facility] Comment on above: Result Comment: Use the aPTT protocol when triglycerides are > 800 mg/dL, total bilirubin is > 20 mg/dL and/or patient has received a DOAC, Fondaparinux or LMWH within 72 hours AND baseline anti-Xa level is > 0.7 units/mL PERFORMED BY: [place] [address] PATHOLOGIST TAILOR'S AIDE BEN MARISCAL M.D. Performed By: #### H S TROP, MG, CBC, BMP, LIPID #### [address] ECG 12 lead ECGon 07-05-2024 ECG 12 lead ECG [facility] [place] [address] [place] [address] Electrocardiograph Report Signed Patient: Keely Chopra MR#: [id number] : 1955 Acct:[id number] Age/Sex: 68 / F ADM Date: 07/05/24 Loc: Room: [address] [place] [address] Type: ADM IN Attending Dr: Christina Julien MD Ordering Provider: Akua Ellsworth APRN Date of Service: 07/05/24 ECG/ECG 12 lead ECG: a-fib, nstemi Copies to: Test Reason : Blood Pressure : */* mmHG Vent. Rate : 69 BPM Atrial Rate : 69 BPM P-R Int : 152 ms QRS Dur : 76 ms QT Int : 402 ms P-R-T Axes : 62 39 70 degrees QTcB Int : 430 ms Normal sinus rhythm Normal ECG No previous ECGs available Confirmed by Angel Gutierrez ([id number]) on 07/06/2024 2:54:30 PM Referred By: Electronically Signed By: Angel Gutierrez Transcribed By: MUS Signed By Angel Gutierrez MD 07/06/24 2058 Normal [facility] INR in Platelet poor plasma by Coagulation assayOrdered By: Akua Ellsworth on 07-05-2024 INR Coag (PPP) [Relative time] INR in Platelet poor plasma by Coagulation assay [facility] Comment on above: INR Therapeutic Rang e A) Pre- and Peroperative OAT started two weeks before surgery. NOT HIP SURGERY: 1.5 - 2.5 HIP SURGERY: 2 - 3B) Primary and secondary prevention of venous THROMBOSIS: 2 - 3C) Active venous thrombosis, pulmonary embolismand prevention of recurrent venous thrombosis: 2 - 3D) Prevention of arterial thromboembolismincluding patients with mechanical heart valves: 3 - 4.5 Partial Thromboplastin Timeo n 07-05-2024 aPTT Coag (Bld) [Time] 33.7 s Normal 25.1-36.5 [facility] Comment on above: Result Comment: A he matocrit value greater than 55% may lead to inaccurate results in coagulation testing. Patients having hematocrit values >55% require a special collection tube for coagulation studies. Please contact the laboratory at [phone] for redraw instructions. Performed By: #### H S TROP, MG, CBC, BMP, LIPID #### [place] [id number] [facility] Prothrombin Time INRon 07-05 INR Coag (PPP) [Relative time] 1.0 {INR} Normal [facility] Comment on above: Result Comment: INR Therapeutic Range A) Pre- and Peroperative OAT started two weeks before surgery. NOT HIP SURGERY: 1.5 - 2.5 HIP SURGERY: 2 - 3 B) Primary and secondary prevention of venous THROMBOSIS: 2 - 3 C) Active venous thrombosis, pulmonary embolism and prevention of recurrent venous thrombosis: 2 - 3 D) Prevention of arterial thromboembolism including patients with mechanical heart valves: 3 - 4.5 Performed By: #### H S TROP, MG, CBC, BMP, LIPID #### [place] [id number] [facility] PT Coag (PPP) [Time] 11.0 s Normal 9.0-12.9 [facility] Comment on above: Result Comment: A he matocrit value greater than 55% may lead to inaccurate results in coagulation testing. Patients having hematocrit values >55% require a special collection tube for coagulation studies. Please contact the laboratory at [phone] for redraw instructions. Performed By: #### H S TROP, MG, CBC, BMP, LIPID #### [address] [address] [facility] Prothrombin time (PT)Ordered By: Akua Ellsworth on 07-05-2024 PT Coag (PPP) [Time] Prothrombin time (PT) 9.0- 12.9 [facility] Comment on above: A hematocrit value g reater than 55% may lead to inaccurate results in coagulation testing. Patients having hematocrit values >55% require a special collection tube for coagulation studies. Please contact the laboratory at [phone] for redraw instructions. Troponin I High Sensitivityo n 07-05-2024 Troponin I High Sensitivity 422 Off scale high 0-15 [facility] Comment on above: Result Comment: Crit ical Result : Called to and read back by: NAHID CHANDRA at: 07/06/2024 01:10:46 by: The Troponin units of report have been changed to meet the Chest Pain Accreditation requirement, element EC5.M1l2. Troponin units are changed from pg/ml to ng/L. Also, the decimal is removed and results are in whole numbers. PERFORMED BY: [place] [phone] PATHOLOGIST TAILOR'S AIDE BEN MARISCAL M.D. Performed By: #### H S TROP, MG, CBC, BMP, LIPID #### [address] aPTT in Platelet poor plasma by Coagulation assayOrdered By: Akua Ellsworth on 07-05-2024 aPTT Coag (PPP) [Time] Activated partial thromboplastin time (aPTT) in platelet poor plasma by coagulation a 25.1-36.5 [facility] Comment on above: A hematocrit value g reater than 55% may lead to inaccurate results in coagulation testing. Patients having hematocrit values >55% require a special collection tube for coagulation studies. Please contact the laboratory at [phone] for redraw instructions. Ambulatory Visit Summaryon 1 06-11-2023 Ambulatory Visit Summary Ambulatory Visit Summary KEELY CHOPRA :1955 Visit Date:04/11/2024 Ambulatory Visit Instructions Your Diagnosis Non-smoker BMI 50.0-59.9, adult, Body mass index [BMI] 50.0-59.9, adult Morbid obesity with BMI of 50.0-59.9, adult Your Care Team Attending Physician - Le Montano Primary Care Physician - Le Montano This Is Your Medications List alprazolam (alprazolam 0.25 mg Tab) bisoprolol-hydrochlorothia zide (bisoprolol-hydrochlorothi azide 5 mg-6.25 mg Tab) ropinirole (ropinirole 0.25 mg Tab) sertraline (sertraline 100 mg Tab) Procedures Performed Colonoscopy (05/18/2013), Appendectomy, Arthroscopy, Biopsy of breast, Cataracts, LEXI BSO - Total abdominal hysterectomy and bilateral salpingo-oophorectomy. What to do next Scheduled Follow-Up Appointments Thursday 8:20 AM EST With: Le Montano Where: [place] [phone]- Medications What How Much When Instructions Unchanged alprazolam (alprazolam 0.25 mg Tab) 0.25 Milligram By Mouth Every day prn Dx F41.9 Unchanged bisoprolol-hydrochlorothia zide (bisoprolol-hydrochlorothi azide 5 mg-6.25 mg Tab) 1 Tablets By [...] you for choosing us for your care. Normal [facility] And [...] due to excess calories) see above Orders: amoxicillin-clavulanate, 1 tab(s), Oral, q12hr for 7 day(s), 14 tab(s), Refill(s) 0, [employer] #72, 153, cm, 04/11/24 8:35:00 EST, Height/Length [...] mg-125 mg Tab, 1 tab(s), Oral, q12hr bisoprolol-hydrochlorothia zide 5 mg-6.25 mg Tab, 1 tab(s), Oral, [...] virus vaccine, inactivated 02/25/2022 Recorded SARS-CoV-2 (COVID-19) [id number].ORD![id number] 02/25/2022 Recorded SARSCoV2 mRNA(nyyrnxhkh-ixoa-ioxcym ) vac 10/08/2021 Recorded influenza virus vaccine, inactivated [...] above: Result Comment: Elec tronically Signed By: Le Montano\.br\Date and Time Signed: 04/11/24 12:35 EST No Panel Informationon 01-24 Type of biopsy: carrington ential Informed consent: discussed and consent obtained Informed [...] yes Amount of lidocaine used: 0.3 cc [facility] Type of biopsy: carrington ential Informed consent: discussed and consent obtained Informed [...] yes Amount of lidocaine used: 0.5 cc [facility] Family Medicine Office/Clini c Noteon 09-02-2023 Family Medicine Office/Clinic Note HPI Staff Keely is a 68 year old female presenting [...] dose to 1.8 will send order to [facility]. RTC 3 months. will check HGBA1C [...] salpingo-oophorectomy. Medications alprazolam, 0.25 mg, Oral, Daily bisoprolol-hydrochlorothia zide 5 mg-6.25 mg Tab, 1 tab(s), Oral, [...] virus vaccine, inactivated 02/25/2022 Recorded SARS-CoV-2 (COVID-19) mRNAMUL.ORD![id number] 02/25/2022 Recorded SARSCoV2 mRNA(iccmaraxh-duqt-dxzmkb ) vac 10/08/2021 Recorded influenza virus vaccine, inactivated 05/20/2021 Recorded SARS-CoV-2 (COVID-19) mRNA BNT-162b2 vax 02/14/2021 Recorded SARS-CoV-2 (COVID-19) mRNA BNT-162b2 vax 08/04/2020 Recorded SARS-CoV-2 (COVID-19) mRNA BNT-162b2 vax 07/14/2020 Recorded pneumococcal 13-valent vaccine 03/14/2020 Recorded influenza virus vaccine, inactivated 03/14/2020 Recorded zoster vaccine, inactivated 06/23/2019 Recorded influenza virus vaccine, inactivated 05/31/2019 Recorded zoster vaccine, inactivated 03/28/2019 Recorded Normal [facility] Comment on above: Result Comment: Elec tronically Signed By: Le Montano\.br\Date and Time Signed: 09/02/23 08:43 EDT Medication Consenton 024 Medication Consent [id number]#1.00TIFF [facility] Retail - Clinical Noteon Retail - Clinical Note [id number]#1.00TIFF [facility] CBC AUTO DIFFon 05-12-2022 BASO # 0.0 103/ul Normal 0.0-0.1 [facility] Comment on above: Performed By: #### C BC #### [facility] [address] [place] [address] [address] Nuha Marinelli Basophils/100 WBC (Bld) 0.5 % Normal 0.2-2.0 [facility] Comment on above: Performed By: #### C BC #### [facility] [address] [place] [address] [address] Nuha Marinelli EO # 0.2 103/ul Normal 0.0-0.7 [facility] Comment on above: Performed By: #### C BC #### [facility] [address] [place] [address] Dr. Nuha Marinelli Eosinophils/100 WBC (Bld) 3.3 % Normal 0.9-7.0 [facility] Comment on above: Performed By: #### C BC #### [facility] [address] [place] [address] Dr. Nuha Marinelli Erythrocyte distribution width (RBC) [Ratio] 13.6 % Normal 11.0-15.0 [facility] Comment on above: Performed By: #### C BC #### [facility] [address] [place] [address] Dr. Nuha Marinelli Hematocrit (Bld) [Volume fraction] 41.0 % Normal 36.0-48.0 [facility] Comment on above: Performed By: #### C BC #### [facility] [address] [place] [address] Dr. Nuha Marinelli Hemoglobin (Bld) [Mass/Vol] 13.6 g/dL Normal 12.0-16.0 [facility] Comment on above: Performed By: #### C BC #### [facility] [address] [place] [address] Dr. Nuha Marinelli IG # 0.03 10e3/ul Normal 0.00-0.03 [facility] Comment on above: Performed By: #### C BC #### [facility] [address] [place] [address] Dr. Nuha Marinelli IG % 0.4 % Normal 0.0-0.5 [facility] Comment on above: Performed By: #### C BC #### [facility] [address] [place] [address] Dr. Nuha Marinelli LYMPH # 2.3 103/ul Normal 1.2-3.8 [facility] Comment on above: Performed By: #### C BC #### [facility] [address] [place] [address] Dr. Nuha Marinelli Lymphocytes/100 WBC (Bld) 30.7 % Normal 20.5-60.0 [facility] Comment on above: Performed By: #### C BC #### [facility] [address] [place] [address] Dr. Nuha Marinelli MANUAL DIFF REQ NO Normal [facility] Comment on above: Performed By: #### C BC #### [facility] [address] [place] [address] Dr. Nuha Marinelli MCH (RBC) [Entitic mass] 28.0 pg Normal 26.7-34.0 [facility] Comment on above: Performed By: #### C BC #### [facility] [address] [place] [address] Dr. Nuha Marinelli MCHC (RBC) [Mass/Vol] 33.2 g/dL Normal 29.9-35.2 [facility] Comment on above: Performed By: #### C BC #### [facility] [address] [place] [address] Dr. Nuha Marinelli MCV (RBC) [Entitic vol] 84.5 fL Normal 81.0-99.0 [facility] Comment on above: Performed By: #### C BC #### [facility] [address] [place] [address] Dr. Nuha Marinelli MONO # 0.5 103/ul Normal 0.3-0.8 [facility] Comment on above: Performed By: #### C BC #### [facility] [address] [place] [address] Dr. Nuha Marinelli Monocytes/100 WBC (Bld) 6.8 % Normal 1.7-12.0 [facility] Comment on above: Performed By: #### C BC #### [facility] [address] [place] [address] Dr. Nuha Marinelli NEUT # 4.3 103/ul Normal 1.4-6.5 [facility] Comment on above: Performed By: #### C BC #### [facility] [address] [place] [address] Dr. Nuha Marinelli Neutrophils/100 WBC (Bld) 58.3 % Normal 43.0-75.0 [facility] Comment on above: Performed By: #### C BC #### [facility] [address] [place] [address] Dr. Nuha Marinelli Platelet mean volume (Bld) [Entitic vol] 9.2 fL Critically low 9.5-13.5 [facility] Comment on above: Performed By: #### C BC #### [facility] [address] [place] [address] Dr. Nuha Marinelli PLT 209 103/ul Normal 150-450 [facility] Comment on above: Performed By: #### C BC #### [facility] [address] [place] [address] Dr. Nuha Marinelli RBC 4.85 106/ul Normal 4.20-5.40 [facility] Comment on above: Performed By: #### C BC #### [facility] [address] [place] [address] Dr. Nuha Marinelli WBC 7.4 103/ul Normal 4.0-11.0 [facility] Comment on above: Performed By: #### C BC #### [facility] [address] [place] [address] Dr. Nuha Marinelli LIPID PROFILEon 05-12-2022 CHOL-HDL RATIO NORM SEE BELOW Normal [facility] Comment on above: Result Comment: 3.3 - 4.4 LOW RISK 4.4 - 7.1 AVERAGE RISK 7.1 - 11.0 MODERATE RISK >11.0 HIGH RISK Performed By: #### B MP, LIPID #### [facility] [address] [place] [address] Dr. Nuha Marinelli Cholesterol [Mass/Vol] 183 mg/dL Normal <=200 [facility] Comment on above: Performed By: #### B MP, LIPID #### [facility] [address] [place] [address] Dr. Nuha Marinelli Cholesterol in HDL [Mass/Vol] 47 mg/dL Normal 40-60 [facility] Comment on above: Performed By: #### B MP, LIPID #### [facility] [address] [place] [address] Dr. Nuha Marinelli Cholesterol in LDL [Mass/Vol] 102.8 mg/dL Normal [facility] Comment on above: Performed By: #### B MP, LIPID #### [facility] [address] [place] [address] [address] Nuha Marinelli Cholesterol.total/Awilda sterol in HDL [Mass ratio] 3.9 {ratio} Normal [facility] Comment on above: Performed By: #### B MP, LIPID #### [facility] [address] [place] [address] [address] Nuha Marinelli HDL NORMAL > or = 60 mg/dl - LO W CARDIOVASCULAR RISK <40 mg/dl - HIGH CARDIOVASCULAR RISK Normal [facility] Comment on above: Performed By: #### B MP, LIPID #### [facility] [address] [place] [address] [address] Nuha Marinelli LDL CALC NORMAL SEE BELOW Normal [facility] Comment on above: Result Comment: <100 mg/dl OPTIMAL 100 - 129 mg/dl NEAR OR ABOVE OPTIMAL 130 - 159 mg/dl BORDERLINE HIGH 160 - 189 mg/dl HIGH >190 mg/dl VERY HIGH Performed By: #### B MP, LIPID #### [facility] [address] [place] [address] [address] Nuha Marinelli Triglyceride [Mass/Vol] 166 mg/dL Critically high <=150 [facility] Comment on above: Performed By: #### B MP, LIPID #### [facility] [address] [place] [address] [address] Nuha Marinelli VLDL CALC 33.2 mg/dL Normal [facility] Comment on above: Performed By: #### B MP, LIPID #### [facility] [address] [place] [address] [address] Nuha Marinelli MG MAMM SCREEN 3D CARSON CADon 05-12-2022 MG MAMM SCREEN 3D CARSON CAD Patient: KEELY CHOPRA Exam Date: 05/12/2022 : 1955 Gender:F Ordering : DR JOY LEAL . Admission #: [id number] Family : Order #: [id number] CLICK HERE TO VIEW EXAM RADIOLOGY REPORT PROCEDURE: MAMMOGRAM SCREENING 3D BILATERAL CAD COMPARISON: MG MAMM SCREEN CAROSN W CAD, 05/08/2020. MG MAMM SCREEN 3D CARSON CAD, 05/07/2021. INDICATIONS: Screening mammography Calculator Name NCI Breast Cancer Risk Assessment Tool 5 Year Breast Cancer Risk 2.30% Lifetime Breast Cancer Risk 7.40% Personal Breast Cancer No Personal Ovarian Cancer No Treatments None Family Cancers Grandmother-maternal with breast cancer at age 80; Niece with liver cancer at age 6. LOCATION: [facility] BREAST COMPOSITION: Heterogeneously dense,which may obscure small [...] Rose MD on 05/13/2022 at 11:15 Normal [facility] PROF CHEM 8 (BAS METB)on Anion gap [Moles/Vol] 12.1 mmol/L Normal [facility] Comment on above: Performed By: #### B MP, LIPID #### [facility] [address] [place] [address] Dr. Nuha Marinelli Calcium [Mass/Vol] 9.3 mg/dL Normal 8.5-10.1 [facility] Comment on above: Performed By: #### B MP, LIPID #### [facility] [address] [place] [address] Dr. Nuha Marinelli Chloride [Moles/Vol] 99 mmol/L Normal 98-107 [facility] Comment on above: Performed By: #### B MP, LIPID #### [facility] [address] [place] [address] Dr. Nuha Marinelli CO2 [Moles/Vol] 29.7 mmol/L Normal 21.0-32.0 [facility] Comment on above: Performed By: #### B MP, LIPID #### [facility] [address] [address] [address] Nuha Marinelli Creatinine [Mass/Vol] 0.77 mg/dL Normal 0.55-1.02 [facility] Comment on above: Performed By: #### B MP, LIPID #### [facility] [address] [address] [address] Nuha Marinelli EGFR-AF SLOVAK >60 Normal >=60 [facility] Comment on above: Performed By: #### B MP, LIPID #### [facility] [address] [address] [address] Nuha Marinelli EGFR-NON AF SLOVAK >60 Normal >=60 [facility] Comment on above: Performed By: #### B MP, LIPID #### [facility] [address] [place] [address] Dr. Nuha Marinelli Glucose [Mass/Vol] 112 mg/dL Critically high 74-106 T [facility] Comment on above: Performed By: #### B MP, LIPID #### [facility] [address] [place] [address] Dr. Nuha Marinelli Potassium [Moles/Vol] 3.8 mmol/L Normal 3.5-5.1 [facility] Comment on above: Performed By: #### B MP, LIPID #### [facility] [address] [place] [address] Dr. Nuha Marinelli Sodium [Moles/Vol] 137 mmol/L Normal 136-145 [facility] Comment on above: Performed By: #### B MP, LIPID #### [facility] [address] [place] [address] Dr. Nuha Marinelli Urea nitrogen [Mass/Vol] 15.0 mg/dL Normal 7.0-18.0 [facility] Comment on above: Performed By: #### B MP, LIPID #### [facility] [address] [place] [address] Dr. Nuha Marinelli Urea nitrogen/Creatinine [Mass ratio] 19.5 mg/mg Normal [facility] Comment on above: Performed By: #### B MP, LIPID #### [facility] [address] [address] [address] Nuha Marinelli CBC AUTO DIFFon 11-15-2021 BASO # 0.0 103/ul Normal 0.0-0.1 [facility] Comment on above: Performed By: #### C BC #### [facility] [address] [place] [address] Dr. Nuha Marinelli Basophils/100 WBC (Bld) 0.6 % Normal 0.2-2.0 [facility] Comment on above: Performed By: #### C BC #### [facility] [address] [place] [address] Dr. Nuha Marinelli EO # 0.3 103/ul Normal 0.0-0.7 [facility] Comment on above: Performed By: #### C BC #### [facility] [address] [place] [address] Dr. Nuha Marinelli Eosinophils/100 WBC (Bld) 4.3 % Normal 0.9-7.0 [facility] Comment on above: Performed By: #### C BC #### [facility] [address] [place] [address] Dr. Nuha Marinelli Erythrocyte distribution width (RBC) [Ratio] 13.6 % Normal 11.0-15.0 [facility] Comment on above: Performed By: #### C BC #### [facility] [address] [place] [address] Dr. Nuha Marinelli Hematocrit (Bld) [Volume fraction] 39.8 % Normal 36.0-48.0 [facility] Comment on above: Performed By: #### C BC #### [facility] [address] [place] [address] Dr. Nuha Marinelli Hemoglobin (Bld) [Mass/Vol] 13.0 g/dL Normal 12.0-16.0 [facility] Comment on above: Performed By: #### C BC #### [facility] [address] [place] [address] Dr. Nuha Marinelli IG # 0.02 10e3/ul Normal 0.00-0.03 [facility] Comment on above: Performed By: #### C BC #### [facility] [address] [place] [address] Dr. Nuha Marinelli IG % 0.3 % Normal 0.0-0.5 [facility] Comment on above: Performed By: #### C BC #### [facility] [address] [place] [address] Dr. Nuha Marinelli LYMPH # 2.4 103/ul Normal 1.2-3.8 [facility] Comment on above: Performed By: #### C BC #### [facility] [address] [place] [address] Dr. Nuha Marinelli Lymphocytes/100 WBC (Bld) 36.5 % Normal 20.5-60.0 [facility] Comment on above: Performed By: #### C BC #### [facility] [address] [place] [address] Dr. Nuha Marinelli MANUAL DIFF REQ NO Normal [facility] Comment on above: Performed By: #### C BC #### [facility] [address] [place] [address] Dr. Nuha Marinelli MCH (RBC) [Entitic mass] 28.6 pg Normal 26.7-34.0 [facility] Comment on above: Performed By: #### C BC #### [facility] [address] [place] [address] Dr. Nuha Marinelli MCHC (RBC) [Mass/Vol] 32.7 g/dL Normal 29.9-35.2 [facility] Comment on above: Performed By: #### C BC #### [facility] [address] [place] [address] Dr. Nuha Marinelli MCV (RBC) [Entitic vol] 87.5 fL Normal 81.0-99.0 [facility] Comment on above: Performed By: #### C BC #### [facility] [address] [place] [address] Dr. Nuha Marinelli MONO # 0.6 103/ul Normal 0.3-0.8 [facility] Comment on above: Performed By: #### C BC #### [facility] [address] [place] [address] Dr. Nuha Marinelli Monocytes/100 WBC (Bld) 9.0 % Normal 1.7-12.0 T [facility] Comment on above: Performed By: #### C BC #### [facility] [address] [place] [address] Dr. Nuha Marinelli NEUT # 3.3 103/ul Normal 1.4-6.5 [facility] Comment on above: Performed By: #### C BC #### [facility] [address] [place] [address] Dr. Nuha Marinelli Neutrophils/100 WBC (Bld) 49.3 % Normal 43.0-75.0 [facility] Comment on above: Performed By: #### C BC #### [facility] [address] [place] [address] Dr. Nuha Marinelli Platelet mean volume (Bld) [Entitic vol] 9.3 fL Critically low 9.5-13.5 [facility] Comment on above: Performed By: #### C BC #### [facility] [address] [place] [address] Dr. Nuha Marinelli PLT 181 103/ul Normal 150-450 [facility] Comment on above: Performed By: #### C BC #### [facility] [address] [place] [address] Dr. Nuha Marinelli RBC 4.55 106/ul Normal 4.20-5.40 [facility] Comment on above: Performed By: #### C BC #### [facility] [address] [place] [address] Dr. Nuha Marinelli WBC 6.7 103/ul Normal 4.0-11.0 [facility] Comment on above: Performed By: #### C BC #### [facility] [address] [place] [address] Dr. Nuha Marinelli LIPID PROFILEon 11-15-2021 CHOL-HDL RATIO NORM SEE BELOW Normal [facility] Comment on above: Result Comment: 3.3 - 4.4 LOW RISK 4.4 - 7.1 AVERAGE RISK 7.1 - 11.0 MODERATE RISK >11.0 HIGH RISK Performed By: #### L IPID, CMP, TSH #### [facility] [address] [address] [address] Nuha Marinelli Cholesterol [Mass/Vol] 219 mg/dL Critically high <=200 [facility] Comment on above: Performed By: #### L IPID, CMP, TSH #### [facility] [address] [address] [address] Nuha Marinelli Cholesterol in HDL [Mass/Vol] 47 mg/dL Normal 40-60 [facility] Comment on above: Performed By: #### L IPID, CMP, TSH #### [facility] [address] [address] [address] Nuha Marinelli Cholesterol in LDL [Mass/Vol] 139.2 mg/dL Normal [facility] Comment on above: Performed By: #### L IPID, CMP, TSH #### [facility] [address] [address] [address] Nuha Marinelli Cholesterol.total/Awilda sterol in HDL [Mass ratio] 4.7 {ratio} Normal [facility] Comment on above: Performed By: #### L IPID, CMP, TSH #### [facility] [address] [address] [address] Nuha Marinelli HDL NORMAL > or = 60 mg/dl - LO W CARDIOVASCULAR RISK <40 mg/dl - HIGH CARDIOVASCULAR RISK Normal [facility] Comment on above: Performed By: #### L IPID, CMP, TSH #### [facility] [address] [address] [address] Nuha Marinelli LDL CALC NORMAL SEE BELOW Normal [facility] Comment on above: Result Comment: <100 mg/dl OPTIMAL 100 - 129 mg/dl NEAR OR ABOVE OPTIMAL 130 - 159 mg/dl BORDERLINE HIGH 160 - 189 mg/dl HIGH >190 mg/dl VERY HIGH Performed By: #### L IPID, CMP, TSH #### [facility] [address] [address] [address] Nuha Marinelli Triglyceride [Mass/Vol] 164 mg/dL Critically high <=150 [facility] Comment on above: Performed By: #### L IPID, CMP, TSH #### [facility] [address] [address] [address] Nuha Marinelli VLDL CALC 32.8 mg/dL Normal [facility] Comment on above: Performed By: #### L IPID, CMP, TSH #### [facility] [address] [address] [address] Nuha Marinelli PROF 14(COMP METB)on 022 Albumin [Mass/Vol] 3.7 g/dL Normal 3.4-5.0 [facility] Comment on above: Performed By: #### L IPID, CMP, TSH #### [facility] [address] [address] [address] Nuha Marinelli Albumin/Globulin [Mass ratio] 1.0 {ratio} Normal [facility] Comment on above: Performed By: #### L IPID, CMP, TSH #### [facility] [address] [place] [address] Dr. Nuha Marinelli ALP [Catalytic activity/Vol] 79 U/L Normal 46-116 [facility] Comment on above: Performed By: #### L IPID, CMP, TSH #### [facility] [address] [place] [address] Dr. Nuha Marinelli ALT [Catalytic activity/Vol] 32 U/L Normal 14-59 [facility] Comment on above: Performed By: #### L IPID, CMP, TSH #### [facility] [address] [place] [address] Dr. Nuha Marinelli Anion gap [Moles/Vol] 12.6 mmol/L Normal [facility] Comment on above: Performed By: #### L IPID, CMP, TSH #### [facility] [address] [place] [address] Dr. Nuha Marinelli AST [Catalytic activity/Vol] 16 U/L Normal 15-37 [facility] Comment on above: Performed By: #### L IPID, CMP, TSH #### [facility] [address] [place] [address] Dr. Nuha Marinelli Bilirubin [Mass/Vol] 0.5 mg/dL Normal 0.2-1.0 [facility] Comment on above: Performed By: #### L IPID, CMP, TSH #### [facility] [address] [address] [address] Nuha Marinelli Calcium [Mass/Vol] 8.9 mg/dL Normal 8.5-10.1 [facility] Comment on above: Performed By: #### L IPID, CMP, TSH #### [facility] [address] [address] [address] Nuha Marinelli Chloride [Moles/Vol] 102 mmol/L Normal 98-107 [facility] Comment on above: Performed By: #### L IPID, CMP, TSH #### [facility] [address] [address] [address] Nuha Marinelli CO2 [Moles/Vol] 27.7 mmol/L Normal 21.0-32.0 [facility] Comment on above: Performed By: #### L IPID, CMP, TSH #### [facility] [address] [place] [address] Dr. Nuha Marinelli Creatinine [Mass/Vol] 0.90 mg/dL Normal 0.55-1.02 [facility] Comment on above: Performed By: #### L IPID, CMP, TSH #### [facility] [address] [place] [address] Dr. Nuha Marinelli EGFR-AF SLOVAK >60 Normal >=60 [facility] Comment on above: Performed By: #### L IPID, CMP, TSH #### [facility] [address] [place] [address] Dr. Nuha Marinelli EGFR-NON AF SLOVAK >60 Normal >=60 [facility] Comment on above: Performed By: #### L IPID, CMP, TSH #### [facility] [address] [place] [address] Dr. Nuha Marinelli Globulin (S) [Mass/Vol] 3.7 g/dL Normal [facility] Comment on above: Performed By: #### L IPID, CMP, TSH #### [facility] [address] [place] [address] Dr. Nuha Marinelli Glucose [Mass/Vol] 108 mg/dL Critically high 74-106 T [facility] Comment on above: Performed By: #### L IPID, CMP, TSH #### [facility] [address] [place] [address] Dr. Nuha Marinelli Potassium [Moles/Vol] 4.3 mmol/L Normal 3.5-5.1 [facility] Comment on above: Performed By: #### L IPID, CMP, TSH #### [facility] [address] [place] [address] Dr. Nuha Marinelli Protein [Mass/Vol] 7.4 g/dL Normal 6.4-8.2 [facility] Comment on above: Performed By: #### L IPID, CMP, TSH #### [facility] [address] [place] [address] Dr. Nuha Marinelli Sodium [Moles/Vol] 138 mmol/L Normal 136-145 [facility] Comment on above: Performed By: #### L IPID, CMP, TSH #### [facility] [address] [place] [address] Dr. Nuha Marinelli Urea nitrogen [Mass/Vol] 18.0 mg/dL Normal 7.0-18.0 [facility] Comment on above: Performed By: #### L IPID, CMP, TSH #### [facility] [address] [place] [address] Dr. Nuha Marinelli Urea nitrogen/Creatinine [Mass ratio] 20.0 mg/mg Normal [facility] Comment on above: Performed By: #### L IPID, CMP, TSH #### [facility] [address] [place] [address] Dr. Nuha Marinelli TSHon 11-15-2021 TSH 1.735 uIU/mL Normal 0.358-3.74 0 [facility] Comment on above: Performed By: #### L IPID, CMP, TSH #### [facility] [address] [place] [address] Dr. Nuha Marinelli Vital Signs Date Time Vital Sign Value Performing Clinician Facility 09-23-2024 09:27-0400 Diastolic blood pressure 91 mm[Hg] Juan Domingo MD Work Phone: [facility] 09-23-2024 09:27-0400 Systolic blood pressure 138 mm[Hg] Juan Domingo MD Work Phone: [facility] 09-23-2024 09:26-0400 Heart rate 82 /min Juan Domingo MD Work Phone: [facility] 08-22-2024 09:04-0400 Body height 157.5 cm [facility] 08-22-2024 09:04-0400 Body mass index (BMI) [Ratio] 48.14 kg/m2 [facility] 08-22-2024 09:04-0400 Body weight 119.39 kg [facility] 08-22-2024 09:04-0400 Diastolic blood pressure 88 mm[Hg] [facility] 08-22-2024 09:04-0400 Heart rate 67 /min [facility] 08-22-2024 09:04-0400 Systolic blood pressure 142 mm[Hg] [facility] 08-08-2024 09:55-0400 Body height 157.5 cm Troy Vasquez MD Work Phone: [facility] 08-08-2024 09:55-0400 Body mass index (BMI) [Ratio] 48.29 kg/m2 Troy Vasquez MD Work Phone: [facility] 08-08-2024 09:55-0400 Body weight 119.75 kg Troy Vasquez MD Work Phone: [facility] 08-08-2024 09:55-0400 Diastolic blood pressure 86 mm[Hg] Troy Vasquez MD Work Phone: [facility] 08-08-2024 09:55-0400 Heart rate 76 /min Troy Vasquez MD Work Phone: [facility] 08-08-2024 09:55-0400 Systolic blood pressure 118 mm[Hg] Troy Vasquez MD Work Phone: [facility] 07-07-2024 10:55-0500 Diastolic blood pressure 80 mm[Hg] Le Cristiane MANGA ARTIST-C Work Phone: [facility] 07-07-2024 10:55-0500 Heart rate 66 /min Le Cristiane MANGA ARTIST-C Work Phone: [facility] 07-07-2024 10:55-0500 Respiratory rate 16 /min Le Cristiane MANGA ARTIST-C Work Phone: [facility] 07-07-2024 10:55-0500 SaO2% (BldA) [Mass fraction] 98 % Le Cristiane MANGA ARTIST-C Work Phone: [facility] 07-07-2024 10:55-0500 Systolic blood pressure 138 mm[Hg] Le Cristiane MANGA ARTIST-C Work Phone: [facility] 07-07-2024 06:55-0500 Body height 157.48 cm Le Cristiane MANGA ARTIST-C Work Phone: [facility] 07-07-2024 06:55-0500 Body temperature 97.4 [degF] Le Cristiane MANGA ARTIST-C Work Phone: [facility] 07-07-2024 06:55-0500 Body weight 119.9 kg Le Cristiane MANGA ARTIST-C Work Phone: [facility] 07-06-2024 16:45-0500 Body temperature 97.6 [degF] Le Cristiane MANGA ARTIST-C Work Phone: [facility] 07-06-2024 16:45-0500 Diastolic blood pressure 58 mm[Hg] Le Cristiane MANGA ARTIST-C Work Phone: [facility] 07-06-2024 16:45-0500 Heart rate 70 /min El Cristiane MANGA ARTIST-C Work Phone: [facility] 07-06-2024 16:45-0500 Respiratory rate 18 /min Le Cristiane MANGA ARTIST-C Work Phone: [facility] 07-06-2024 16:45-0500 SaO2% (BldA) [Mass fraction] 98 % Le Cristiane MANGA ARTIST-C Work Phone: [facility] 07-06-2024 16:45-0500 Systolic blood pressure 91 mm[Hg] Le Cristiane MANGA ARTIST-C Work Phone: [facility] 07-06-2024 07:01-0500 Body weight 119.6 kg Le Cristiane MANGA ARTIST-C Work Phone: [facility] 07-05-2024 23:50-0500 Body height 157.48 cm Le Cristiane MANGA ARTIST-C Work Phone: [facility] Encounters Encounter Date Encounter Type Care Provider Facility Start: 09-23-2024 End: 09-23-2024 Office outpatient new 45 minutes Le Huitron BOLT CUTTER Work Phone: [facility] Comment on above: NSTEMI (non-ST eleva dionne myocardial infarction) (HCC); Hypertension, unspecified type; Atrial flutter (HCC) Start: 09-23-2024 End: 09-23-2024 ambulatory JUAN DOMINGO [facility] Start: 09-12-2024 End: 09-12-2024 Orders Only Juan Domingo MD Work Phone: [facility] Comment on above: Atrial flutter (HCC) (Primary Dx) Start: 08-30-2024 End: 08-30-2024 ambulatory Le Huitron Facility:[facility] Start: 08-22-2024 End: 08-22-2024 Professional / ancillary services management Lauren Eastman LPN [facility] Comment on above: Paroxysmal atrial fi brillation (Multi) Start: 08-22-2024 End: 08-22-2024 ambulatory [facility] Start: 08-17-2024 End: 08-17-2024 Transcribe Orders Taty Block TECHNOLOGIST [facility] Comment on above: NSTEMI (non-ST eleva dionne myocardial infarction) (HCC) (Primary Dx); Hypertension, unspecified type Start: 08-15-2024 End: 08-15-2024 ambulatory Le L Cristiane Facility:[facility] [place] Start: 08-09-2024 End: 08-09-2024 ambulatory Le L Cristiane Facility:[facility] [place] Start: 08-08-2024 End: 08-08-2024 Office outpatient visit 25 minutes Troy Vasquez MD Work Phone: [facility] Comment on above: Paroxysmal atrial fi brillation (Multi) (Primary Dx); Myocardial infarction type 2 (Multi) Start: 08-08-2024 End: 08-08-2024 ambulatory [facility] Start: 07-15-2024 End: 07-15-2024 ambulatory Le L Cristiane Facility:[facility] [place] Start: 07-11-2024 End: 07-11-2024 ambulatory El L Cristiane Facility:[facility] [place] Start: 07-07-2024 End: 07-07-2024 Emergency department patient visit Le Cristiane MANGA ARTIST-C Work Phone: [facility] Work Phone: Start: 07-05-2024 End: 07-06-2024 Evaluation and management of inpatient Le Cristiane MANGA ARTIST-C Work Phone: [facility] [place] [facility] Work Phone: Start: 04-11-2024 End: 04-11-2024 ambulatory Le L Cristiane Facility:[facility] [place] Start: 03-28-2024 ambulatory Le L Cristiane Facility: [facility] [place] Start: 03-21-2024 End: 03-21-2024 Bamboo flowsheet Alecia Ortez MANAGER [employer] Work Phone: [facility] Start: 03-21-2024 End: 03-21-2024 Bamboo flowsheet Alecia Middleton Felter MANAGER [employer] Work Phone: [facility] Start: 03-21-2024 End: 03-21-2024 Office outpatient visit 15 minutes Alecia Middleton Felter MANAGER [employer] Work Phone: [facility] Comment on above: Psoriasis vulgaris ( CMS/HCC); Rash and other nonspecific skin eruption Start: 03-21-2024 End: 03-21-2024 ambulatory ALECIA A FELTER Not Available Start: 01-25-2024 End: 01-25-2024 IPWirelesso Veebeamheet Alecia Middleton Felter MANAGER [employer] Work Phone: [facility] Start: 01-25-2024 End: 01-25-2024 BamFotoupo Veebeamheet Alecia Middleton Felter MANAGER [employer] Work Phone: [facility] Start: 01-25-2024 End: 01-25-2024 Office outpatient visit 25 minutes Alecia Hernandezer MANAGER [employer] Work Phone: [facility] Comment on above: Seborrheic keratosis ; Lentigines; Melanocytic nevus of trunk; Seborrheic keratosis, inflamed; Psoriasis vulgaris (CMS/HCC); Rash and other nonspecific skin eruption; Neoplasm of unspecified behavior of bone, soft tissue, and skin Start: 01-25-2024 End: 01-25-2024 ambulatory ALECIA A FELTER Not Available Start: 12-02-2023 End: 12-02-2023 ambulatory Le Huitron Facility:[facility] [place] Start: 09-02-2023 End: 09-02-2023 ambulatory Le L Cristiane Facility:[facility] [place] Start: 07-03-2023 End: 07-03-2023 ambulatory ALECIA A FELTER Not Available Start: 06-15-2023 End: 06-15-2023 ambulatory ALECIA A FELTER Not Available Start: 05-12-2022 End: 05-13-[address] JOY LEAL Facility:[facility] Start: 11-15-2021 End: 11-16-[address] JOY LEAL Facility: Procedures Date Procedure Procedure Detail Performing Clinician Start: 09-23-2024 Ecg routine ecg w/le ast 12 lds w/i&r Juan Domingo MD Work Phone: Start: 07-07-2024 Plain chest X-ray Le Huitron MANGA ARTIST-C Work Phone: Start: 07-06-2024 CL [facility] Angio (Right) Le Huitron MANGA ARTIST-C Work Phone: Start: 07-06-2024 Le ruano MANGA ARTIST-C Work Phone: Start: 06-08-2024 Mammography Juan Domingo MD Work Phone: Start: 01-25-2024 CRYOTHERAPY SKIN LESION Alecia Ortez MANAGER [employer] Work Phone: Start: 01-25-2024 End: 01-25-2024 SKIN / NAIL BIOPSY Alecia Ortez MANAGER [employer] Work Phone: Start: 05-18-2013 Colonoscopy Alecia Farrell lter MANAGER [employer] Work Phone: Plan of Treatment Date Care Activity Detail Author Start: 06-08-2025 Screening for malignant neoplasm of breast Mammogram [facility] Start: 03-21-2025 End: 03-21-2025 Patient encounter procedure 03/21/2025 10:35 AM EST Office Visit [facility] [address] [place] [address] PérezAbbeyian Middleton, MANAGER [employer] [address] [place], [place] [id number] [facility] Start: 03-20-2025 End: 03-20-2025 Patient encounter procedure 03/20/2025 10:00 AM EST Office Visit [facility] [address] [place] [address] Juan Domingo MD [address] [place] [address] [facility] Start: 12-23-2024 End: 12-23-2024 Patient encounter procedure 12/23/2024 9:00 AM EDT Office Visit [facility] [address] [facility] [address] [place] [address] Troy Vasquez MD [address] [facility] [address] [place], [place] [id number] [facility] Start: 09-23-2024 End: 09-23-2024 Patient encounter procedure 09/23/2024 9:30 AM EDT Office Visit [facility] [address] [place] [id number] Le Huitron, [facility] [address] [place] [address] Juan Domingo MD [address] [place] [address] [facility] Start: 09-22-2024 COVID-19 Vaccine ( season) COVID-19 Vaccine ( season) [facility] Start: 08-22-2024 End: 08-08-2025 ECG 12 Lead [facility] Service Area Work Phone: Comment on above: Expected: 08/22/2024 (Approximate), Expi res: 08/08/2025 Start: 08-22-2024 End: 08-22-2024 Professional / ancillary services management 08/22/2024 9:00 AM EDT Ancillary Procedure [place] [id number] [phone] [facility] Start: 07-06-2024 [facility] Start: 07-06-2024 [facility] Start: 07-05-2024 Hospital admission [facility] Start: 03-21-2024 End: 03-21-2024 Patient encounter procedure 03/21/2024 10:40 AM EST Office Visit [facility] [address] [place] [phone] Alecia Ortez, MANAGER [employer] [address] [place] [address] Arrived [facility] Comment on above: Arrived Start: 02-15-2024 End: 02-15-2024 Patient encounter procedure 02/15/2024 9:35 AM EDT Office Visit [facility] [address] [place] [phone] Alecia Ortez, MANAGER [employer] [address] [place] [address] [facility] Start: 01-25-2024 End: 01-25-2024 Patient encounter procedure 01/25/2024 9:55 AM EDT Office Visit [facility] [address] [place] [phone] Alecia Ortez, MANAGER [employer] [address] [place] [address] Arrived [facility] Comment on above: Arrived Start: 01-17-2024 COVID-19 Vaccine ( season) COVID-19 Vaccine ( season) [facility] Start: 01-17-2024 COVID-19 Vaccine ( season) COVID-19 Vaccine ( season) [facility] Start: 01-17-2024 Influenza vaccination Influenza Vaccine (#1) [facility] Start: 05-18-2023 Screening for malignant neoplasm of colon [facility] Start: 03-14-2021 Pneumococcal Vaccine: 65+ Years (2 of 2 - PPSV23 or PCV20) Pneumococcal Vaccine: 65+ Years (2 of 2 - PPSV23 or PCV20) [facility] Start: 03-14-2021 Pneumococcal Vaccine: Age 50+ (2 of 2 - PPSV23) Pneumococcal Vaccine: Age 50+ (2 of 2 - PPSV23) [facility] Start: 05-09-2020 Pneumococcal vaccination Pneumococcal Vaccine (2 of 2 - PPSV23) [facility] Start: 2018 Fall risk assessment Falls Risk Assessment [facility] Start: 2013 Respiratory Syncytial Virus Immunization: Risk, 60-74 Risk, or 75+ (1 - Risk 60-74 years 1-dose series) Respiratory Syncytial Virus Immunization: Risk, 60-74 Risk, or 75+ (1 - Risk 60-74 years 1-dose series) [facility] Start: 2013 RSV High Risk: (Elderly (60+) or Population) (1 - Risk 60-74 years 1-dose series) RSV High Risk: (Elderly (60+) or Population) (1 - Risk 60-74 years 1-dose series) [facility] Start: 08-03-2003 Screening for malignant neoplasm of colon Flexible sigmoidoscopy [facility] Start: 1993 Screening for malignant neoplasm of breast Mammogram [facility] Start: 08-03-1975 DTaP/Tdap/Td Vaccines (1 - Tdap) DTaP/Tdap/Td Vaccines (1 - Tdap) [facility] Start: 08-03-1971 Diabetes mellitus screening Diabetes Screening [facility] Start: 08-03-1971 Hepatitis C screening Hepatitis C Screening [facility] Start: 1965 Depression screening using PHQ-9 (Patient Health Questionnaire 9) score Depression Screening/Follow-Up (PHQ-2/9) [facility] Start: 1956 Medicare Wellness Visit Medicare Wellness Visit [facility] Start: 1953 Lipid panel Lipid Panel [facility] Start: 1953 Medicare Annual Wellness Visit Medicare Annual Wellness Visit (AWV) [facility] Start: 1953 Screening for malignant neoplasm of colon [facility] Start: 1953 Screening for osteoporosis [facility] Start: 1953 Tetanus vaccination Tetanus: Every 10yrs [facility] End: 09-12-2027 12 lead ECG ECG 12 Lead ECG Routine Atrial flutter (HCC) 1 Occurrences starting 09/12/2024 until 09/12/2027 [facility] Work Phone: Comment on above: 1 Occurrences starting 09/12/2024 until 09/12/2027 Dermatopathology exam Dermatopat hology exam Pathology and Cytology Timed Neoplasm of unspecified behavior of bone, soft tissue, and skin Release Upon Ordering for 1 Occurrences starting 01/25/2024 [facility] Work Phone: Comment on above: Release Upon Ordering for 1 Occurrences starting 01/25/2024 Patient Education [facility] Work Phone: Patient referral [facility] Work Phone: Immunizations Immunization Date Immunization Notes Care Provider Fa bre 02-23-2024 influenza, seasonal, injectable Troy Vasquez MD Work Phone: [facility] Work Phone: 04-01-2023 influenza virus vaccine, unspecified formulation Alecia Hernandezashleigh MANAGER [employer] Work Phone: [facility] Payers Date Payer Category Payer Self-pay 2023 Private Health Insurance [id number] 2021 Medicare supplementa l policy (as second payer) [id number] 2018 Medicare [id number] 1959 Medicare [id number] 1959 Private Health Insurance CLI [id number] 1953 Unknown [id number] 2.16.840.1.701660.3.579.2. 593 1953 Unknown [id number] 2.16.840.1.296123.3.579.2. 593 1953 Unknown [id number] 2.16.840.1.734237.3.579.2. 1259 1953 Unknown [id number] 2.16.840.1.448871.3.579.2. 1259 1953 Unknown [id number] 2.16.840.1.888813.3.579.2. 1259 1953 Unknown [id number] 2.16.840.1.287421.3.579.2. 1259 1953 Unknown [id number] 2.16.840.1.457410.3.579.2. 1244 1953 Unknown [id number] 2.16.840.1.685321.3.579.2. 1244 1953 Unknown [id number] 2.16.840.1.638864.3.579.2. 727 1953 Unknown [id number] 2.16.840.1.103805.3.579.2. 727 1953 Unknown [id number] 2.16.840.1.609364.3.579.2. 727 1953 Unknown [id number] 2.16.840.1.455421.3.579.2. 727 1953 Unknown [id number] 2.16.840.1.735608.3.579.2. 727 1953 Unknown [id number] 2.16.840.1.003911.3.579.2. 727 1953 Unknown [id number] 2.16.840.1.240474.3.579.2. 727 1953 Unknown [id number] 2.16.840.1.153651.3.579.2. 727 1953 Unknown [id number] 2.16.840.1.609813.3.579.2. 727 1953 Unknown [id number] 2.16.840.1.840095.3.579.2. 903 Unknown Regular Insurance [id number] Unknown [id number] 2.16.840.1.597520.3.579.2. 531 Unknown [id number] 2.16.840.1.742614.3.579.2. 531 Social History Date Type Detail Facility Start: 05-05-2023 End: 09-23-2024 Tobacco smoking status NHIS Never smoked tobacco [facility] Start: 01-25-2024 End: 08-22-2024 Alcoholic beverage intake Lifetime non-drinker (finding) [facility] Start: 01-25-2024 End: 09-23-2024 History of Social function [facility] Start: 01-25-2024 End: 09-23-2024 Tobacco use panel [facility] Start: 05-05-2023 Alcohol Comment caffeine: 1-2 cups per day [facility] Start: 1955 Sex assigned at Not on file [facility] Start: 07-06-2024 End: 07-07-2024 Sex Female (finding) [facility] Start: 1955 Sex Assigned At Female F [facility] Start: 08-08-2024 End: 09-23-2024 Tobacco use and exposure Smokeless tobacco non-user [facility] Work Phone: Start: 07-29-2024 End: 08-22-2024 Exposure to SARS-CoV-2 (event) Not sure [facility] Tobacco smoking stat us NHIS Tobacco smoking consumption unknown [facility] Start: 09-23-2024 Alcoholic beverage intake Ex-drinker (finding) [facility] Goals Date Patient Goal Desired Activity /State Functional Status Date Assessment Result Facility 07-06-2024 Functional status Patient at Baseline [facility] Work Phone: Mental Status Date Assessment Result Facility 07-06-2024 Cognitive function Cognitive Sta tus Patient at Baseline [facility] Work Phone: Clinical Notes 01-25-2024 to 09-23-2024 Juan Domingo MD - 09/23/2024 10:16 AM EDTPramy Eastman LPN - 08/22/2024 9:00 AM Antonino Vasquez MD - 08/08/2024 10:00 AM EDTPatient Instructions Note Date & Type Note Facility 09-23-2024 Note Electrophysiology Cl inic Consult Heart & Vascular [facility] 09/23/2024 Juan Domingo MD [address] [facility] [phone] Patient: Keely Chopra Date of : 1955 (69 y.o.) Referring Provider: Le Huitron CNP PCP: Le Huitron CNP Assessment & Plan Overall, the patient presents for evaluation of her history of reported PAF. I reviewed the patient's EKGs from her hospitalization. The EKG in question demonstrates a short RP SVT. This is suspicious for an AVNRT. I could not find any actual documentation of atrial fibrillation. At this point, I have recommended discontinuation of her flecainide and apixaban. She has a [employer] mobile device which she will use to document any future episodes of symptomatic arrhythmias. I feel we can place her on diltiazem long-acting 180 mg daily for both her history of hypertension and probable PSVT. If she continues to have symptomatic PSVT, we talked about the role of catheter ablation. I will follow-up with the patient in the next 6 months. Follow-up: Return in about 6 months (around 03/26/2025). Chief Complaint: Establish Care Subjective History of Present Illness: Keely Chopra is a 69 y.o. female who presents today for initial evaluation of reported atrial fibrillation. The patient lives in [facility]. She had experienced tachycardia that led to a brief hospitalization in June. She was felt to have atrial fibrillation and was started on therapeutic anticoagulation with apixaban. She was placed on metoprolol. She was seen in outpatient follow-up with a local woven paper hat mender. The patient was experiencing some continued palpitations and she was switched from metoprolol to flecainide. The patient has not had any further significant symptomatic arrhythmias. The patient has remained on therapeutic anticoagulation without bleeding complications. The patient had not had any prior history of symptomatic arrhythmias. She developed the arrhythmias in the context of an apparent viral illness. The patient's hospitalization was associated with cardiac enzyme elevation. She did undergo a heart catheterization which did not reveal any evidence of significant epicardial coronary disease. Objective Tobacco Use History[1] Imaging: I independently reviewed the EKG and cardiac catheterization and agree with the interpretation(s) with the following comments. ECG 12 Lead Final Result by Juan Domingo MD (09/23/2024 0940) HOME Medications: Patient's Medications New Prescriptions DILTIAZEM (CARDIZEM CD) 180 MG 24 HR CAPSULE Take 1 (one) capsule (180 mg total) by mouth daily . Previous Medications ALPRAZOLAM (XANAX) 0.25 MG TABLET Take 1 (one) tablet (0.25 mg total) by mouth nightly as needed . ROPINIROLE (REQUIP) 0.25 MG TABLET Take 1 (one) tablet (0.25 mg total) by mouth nightly . SERTRALINE (ZOLOFT) 100 MG TABLET Take 1 (one) tablet (100 mg total) by mouth daily . Modified Medications No medications on file Discontinued Medications ELIQUIS 5 MG TAB Take 1 (one) tablet (5 mg total) by mouth 2 (two) times a day . FLECAINIDE (TAMBOCOR) 50 MG TABLET Take 1 (one) tablet (50 mg total) by mouth 2 (two) times a day . Physical Examination: BP (!) 138/91 Pulse 82 No results found for: CHOL , LDLCALC , LDLDIRECT , TRIG , HDL Creatinine clearance cannot be calculated (No successful lab value found.) [1] Tobacco Use Smoking Status Never Smokeless Tobacco Never AUTHENTICATED BY JUAN DOMINGO, ON 09/23/2024 10:20:40 [facility] 09-23-2024 History of Present illness Narrative Electrophysiology Clinic Consult Heart & Vascular [facility] 09/23/2024 Juan Domingo MD [address] [facility] [phone] Patient: Keely Chopra Date of : 1955 (69 y.o.) Referring Provider: Le Huitron CNP PCP: Le Huitron CNP Assessment & Plan Overall, the patient presents for evaluation of her history of reported PAF. I reviewed the patient's EKGs from her hospitalization. The EKG in question demonstrates a short RP SVT. This is suspicious for an AVNRT. I could not find any actual documentation of atrial fibrillation. At this point, I have recommended discontinuation of her flecainide and apixaban. She has a [employer] mobile device which she will use to document any future episodes of symptomatic arrhythmias. I feel we can place her on diltiazem long-acting 180 mg daily for both her history of hypertension and probable PSVT. If she continues to have symptomatic PSVT, we talked about the role of catheter ablation. I will follow-up with the patient in the next 6 months. Follow-up: Return in about 6 months (around 03/26/2025). Chief Complaint: Establish Care Subjective History of Present Illness: Keely Chopra is a 69 y.o. female who presents today for initial evaluation of reported atrial fibrillation. The patient lives in [facility]. She had experienced tachycardia that led to a brief hospitalization in June. She was felt to have atrial fibrillation and was started on therapeutic anticoagulation with apixaban. She was placed on metoprolol. She was seen in outpatient follow-up with a local woven paper hat mender. The patient was experiencing some continued palpitations and she was switched from metoprolol to flecainide. The patient has not had any further significant symptomatic arrhythmias. The patient has remained on therapeutic anticoagulation without bleeding complications. The patient had not had any prior history of symptomatic arrhythmias. She developed the arrhythmias in the context of an apparent viral illness. The patient's hospitalization was associated with cardiac enzyme elevation. She did undergo a heart catheterization which did not reveal any evidence of significant epicardial coronary disease. Objective Tobacco Use History[1] Imaging: I independently reviewed the EKG and cardiac catheterization and agree with the interpretation(s) with the following comments. ECG 12 Lead Final Result by Juan Domingo MD (09/23/2024 9563) HOME Medications: Patient's Medications New Prescriptions DILTIAZEM (CARDIZEM CD) 180 MG 24 HR CAPSULE Take 1 (one) capsule (180 mg total) by mouth daily . Previous Medications ALPRAZOLAM (XANAX) 0.25 MG TABLET Take 1 (one) tablet (0.25 mg total) by mouth nightly as needed . ROPINIROLE (REQUIP) 0.25 MG TABLET Take 1 (one) tablet (0.25 mg total) by mouth nightly . SERTRALINE (ZOLOFT) 100 MG TABLET Take 1 (one) tablet (100 mg total) by mouth daily . Modified Medications No medications on file Discontinued Medications ELIQUIS 5 MG TAB Take 1 (one) tablet (5 mg total) by mouth 2 (two) times a day . FLECAINIDE (TAMBOCOR) 50 MG TABLET Take 1 (one) tablet (50 mg total) by mouth 2 (two) times a day . Physical Examination: BP (!) 138/91 Pulse 82 No results found for: CHOL , LDLCALC , LDLDIRECT , TRIG , HDL Creatinine clearance cannot be calculated (No successful lab value found.) [1] Tobacco Use Smoking Status Never Smokeless Tobacco Never documented in this encounter [facility] 09-23-2024 Instructions Jennifer Sampson RN - 09/23/2024 10:02 AM EDT AVS printed and reviewed. If you have any questions or concerns about your visit today with Dr. Domingo, please contact Milagro RN at [phone] . documented in this encounter [facility] 08-22-2024 History of Present illness Narrative Patient here for EKG visit ordered by Dr. Vasquez due to med change for paroxysmal atrial fibrillation. Dr. Vasquez in suite to review EKG prior to discharge. Patient here due to changing Metoprolol 12.5 mg BID to flecainide 50 mg BID . Medication list Updated verbally. Pt states the flecainide has made her jittery since starting, and for the last two days, she has felt an increase in fluttering and shortness of breath that lasts around 15 minutes. States heart rate at home has been in the 90's. To Dr. Vasquez to read EKG done in office today Vitals: 08/22/24 0904 BP: 142/88 BP Location: Right arm Patient Position: Sitting Pulse: 67 Weight: 119 kg (263 lb 3.2 oz) Height: 1.575 m (5' 2 ) documented in this encounter [facility] Work Phone: 08-08-2024 History of Present illness Narrative Chief Complaint Patient presents with Follow-up [place] [facility] 07/06 Subjective Keely Chopra is a 69 y.o. female HPI Patient is here for follow-up due to management for recent hospitalization for palpitation, atrial fibrillation with RVR and elevated cardiac enzyme. Because of her enzymes she underwent cardiac catheterization that showed no coronary artery disease and normal LV systolic function. Her cardiac enzyme felt to be type II event based on negative cardiac catheterization. Her echocardiogram showed normal LV systolic function. Patient was placed on low-dose beta-mira and Eliquis. She report since she was placed on beta-mira she has got some fatigue and tiredness. She continued to have episode of palpitation and was in the hospital at [place] with an episode of atrial flutter. Assessment 1. Recent presentation with paroxysmal atrial fibrillation/flutter continues to have symptoms of palpitation 2. Symptoms of fatigue and tiredness likely due to beta-mira 3. Patient had elevation of cardiac enzyme felt to be type II event based on negative cardiac catheterization normal LV systolic function 4. Morbid obesity 5. High risk for sleep apnea plan #6 anticoagulation well-tolerated Plan 1. I advised the patient to switch metoprolol to flecainide 50 mg twice daily she will have an EKG in few weeks 2. I advised her to notify me if she continues to have symptoms of palpitation will consider outpatient monitor to check the burden of her arrhythmia 3. I advised her to buy a home heart rate monitoring device 4. I advised her to have someone monitor her sleep pattern to see if she had the classic symptoms of sleep apnea 5. I discussed with her the relationship between obesity and atrial fibrillation encouraged her to lose weight 6. Risk, benefit and alternative anticoagulation reviewed with her 7. I will see her back in 3 to 4 months and follow-up Review of Systems Cardiovascular: Positive for palpitations. All other systems reviewed and are negative. Vitals: 08/08/24 0955 BP: 118/86 BP Location: Left arm Patient Position: Sitting Pulse: 76 Weight: 120 kg (264 lb) Height: 1.575 m (5' 2 ) Objective Physical Exam Constitutional: Appearance: Normal appearance. HENT: Nose: Nose normal. Neck: Vascular: No carotid bruit. Cardiovascular: Rate and Rhythm: Normal rate. Pulses: Normal pulses. Heart sounds: Normal heart sounds. Pulmonary: Effort: Pulmonary effort is normal. Abdominal: General: Bowel sounds are normal. Palpations: Abdomen is soft. Musculoskeletal: General: Normal range of motion. Cervical back: Normal range of motion. Right lower leg: No edema. Left lower leg: No edema. Skin: General: Skin is warm and dry. Neurological: General: No focal deficit present. Mental Status: She is alert. Psychiatric: Mood and Affect: Mood normal. Behavior: Behavior normal. Thought Content: Thought content normal. Judgment: Judgment normal. Allergies Patient has no known allergies. Current Medications Current Outpatient Medications: ALPRAZolam (Xanax) 0.25 mg tablet, Take 1 tablet (0.25 mg) by mouth as needed at bedtime for anxiety., Disp: , Rfl: clotrimazole (Mycelex) 10 mg juanita, Use 1 tablet (10 mg) in the mouth or throat 3 times a day., Disp: , Rfl: desonide (DesOwen) 0.05 % cream, Apply topically 2 times a day., Disp: , Rfl: Eliquis 5 mg tablet, Take 1 tablet (5 mg) by mouth 2 times a day., Disp: , Rfl: ondansetron ODT (Zofran-ODT) 4 mg disintegrating tablet, Dissolve 1 tablet (4 mg) in the mouth every 8 hours if needed., Disp: , Rfl: rOPINIRole (Requip) 0.25 mg tablet, Take 1 tablet (0.25 mg) by mouth once daily at bedtime., Disp: , Rfl: semaglutide, weight loss, 1 mg/0.5 mL pen injector, Inject 1.2 mg under the skin 1 (one) time per week., Disp: , Rfl: sertraline (Zoloft) 100 mg tablet, Take 1 tablet (100 mg) by mouth once daily., Disp: , Rfl: flecainide (Tambocor) 50 mg tablet, Take 1 tablet (50 mg) by mouth 2 times a day., Disp: 180 tablet, Rfl: 3 Assessment/Plan 1. Paroxysmal atrial fibrillation (Multi) flecainide (Tambocor) 50 mg tablet ECG 12 Lead 2. Myocardial infarction type 2 (Multi) Follow Up In Cardiology Scribe Attestation By signing my name below, I, Mariela Ruano LPN , [place] attest that this documentation has been prepared under the direction and in the presence of Troy Vasquez MD. Provider Attestation - Scribe documentation All medical record entries made by the Scribe were at my direction and personally dictated by me. I have reviewed the chart and agree that the record accurately reflects my personal performance of the history, physical exam, discussion and plan. documented in this encounter [facility] Work Phone: 08-08-2024 Instructions Mariela Cullen LPN - 08/08/2024 10:00 AM EDT Please bring all medicines, vitamins, and herbal supplements with you when you come to the office. Prescriptions will not be filled unless you are compliant with your follow up appointments or have a follow up appointment scheduled as per instruction of your physician. Refills should be requested at the time of your visit. BMI was above normal measurement. Current weight: 120 kg (264 lb) Weight change since last visit (-) denotes wt loss 264 lbs Weight loss needed to achieve BMI 25: 127.6 Lbs Weight loss needed to achieve BMI 30: 100.3 Lbs Provided instructions on dietary changes Provided instructions on exercise. Stop Metoprolol Start Flecainide 50 mg one tablet 2 times daily Kardia monitor Follow up documented in this encounter [facility] Work Phone: 07-06-2024 Procedure note [facility] 07-06-2024 Consult note Note Date/Time July 06, 2024 11:05am [facility] [address] [place] [address] Cardiology Consult Note Signed Patient: Keely Chopra MR#: [id number] : 1955 Acct:[id number] Age/Sex: 68 / F Adm Date: 5 Loc: Room: [address] [place] [address] Type: ADM IN Attending Dr: Christina Julien MD Copies to: MD Troy Frausto CNP, MD~ Cardiology HPI History of Present Illness Consult Date: 07/06/24 Reason for Consult: Cardiac consultation requested for evaluation of elevated troponin and atrial fibrillation HPI: Ms. Chopra is a 68 year old female with no prior cardiac history except hypertension presented to [facility] complaining of dizziness, palpitation and left jaw pain. She was evaluated and was noted to be in atrial fibrillation with RVR which quickly converted to normal sinus rhythm after giving her Cardizem. Episode occurred while the patient shopping. She felt lightheadedness and dizziness. The patient was evaluated in the emergency room and was noted to have elevated cardiac enzymes. As indicated above she converted quickly to normal sinus rhythm and the patient was transferred here for further care. Currently patient feels much better. She feels almost back to her baseline since her arrhythmia has resolved. Patient denies any previous history of coronary artery disease, congestive heart failure or valvular heart disease. Peak troponin was around 400. Review of Systems Review of Systems Review of systems: Review of system is negative other 1 mentioned above ON LICENSE OF [facility] Source: Unable to Obtain Medical History (Updated 07/06/24 @ 00:14 by Akua Ellsworth APRN) Tear meniscus knee surgical intervention Problem List clean-up per request of Phys. EHR Cmte Anxiety Problem List clean-up per request of Phys. EHR Cmte Hypertension Problem List clean-up per request of Phys. EHR Cmte Surgical History (Updated 04/29/23 @ 13:50 by [place]) H/O breast biopsy Problem List clean-up per request of Phys. EHR Cmte History of appendectomy Problem List clean-up per request of Phys. EHR Cmte History of hysterectomy Problem List clean-up per request of Phys. [facility] Cmte Family History (Updated 07/06/24 @ 00:15 by Akua Ellsworth APRN) Mother Cancer Legacy FamHx Problem: Diagnosed with Cancer History of ovarian cancer Son Cancer lymph nodes, face, head and neck, jaw Other No significant family history Social History Smoking Status: Never smoker Substance Use Type: None Meds Medications and Allergies Allergies No Known Allergies Allergy (Verified 12/01/22 09:21) Home Medications bisoprolol 5 mg-hydrochlorothiazide 6.25 mg tablet 1 tab PO DAILY 12/01/22 [History Confirmed 07/06/24] nabumetone 500 mg tablet 500 mg PO BID PRN as directed 12/01/22 [History Confirmed 07/06/24] sertraline 100 mg tablet 50 mg PO DAILY 12/01/22 [History Confirmed 07/06/24] ropinirole 0.25 mg tablet 0.25 mg PO .at bedtime 07/06/24 [History Confirmed 07/06/24] semaglutide (weight loss) subcut 07/06/24 [History] Exam Physical Exam Vital Signs: Temp Pulse Resp BP Pulse Ox O2 Del Method 97.6 F 71 16 107/68 95 Room Air 07/06/24 04:04 07/06/24 08:00 07/06/24 08:00 07/06/24 08:00 07/06/24 08:00 07/06/24 08:00 Const General: cooperative, comfortable, no acute distress and well developed Nutritional Appearance: obese HEENT Head: atraumatic Mouth: oral mucosae normal Eyes General: appearance normal, both eyes and all related structures Pupils: PERRL Neck Neck: normal visual inspection, supple and no lymphadenopathy noted Neck mass: No Thyroid: thyroid normal Carotids: normal carotid upstroke Chest Chest palpation & inspection: normal inspection of the chest Resp Effort & Inspection: normal respiratory effort Auscultation: clear to auscultation bilaterally Cardio Palpation: normal PMI Rate: regular rate Rhythm: regular rhythm Heart Sounds: S1 normal and S2 normal GI Palpation: soft and no hepatosplenomegaly Percussion: normal to percussion Auscultation: normal bowel sounds Skin General: no rashes or lesions noted and dry skin Neuro General: patient alert, patient awake, patient oriented x3, tone normal and moves all extremities Extrem General: full ROM, capillary refill normal and no clubbing, cyanosis or edema Psych Mental Status: mental status grossly normal Results - Cardiology Labs 07/06/24 06:10 07/06/24 06:10 Lab results: Lipids 07/06/24 Range/Units 06:10 Triglycerides 126 (0-149) mg/dL Cholesterol 196 (140-200) mg/dL HDL Cholesterol 42 (23-92) mg/dL Cholesterol/HDL Ratio 4.7 (<5.0) CBC 07/06/24 Range/Units 06:10 RBC 4.47 (3.60-5.00) x10E6/uL Hgb 12.9 (11.8-15.4) g/dL Hct 36.8 (34.0-46.4) % Plt Count 168 (150-450) x10E3/uL Neut # (Auto) 3.6 (1.8-7.7) x10E3/uL Lymph # (Auto) 1.9 (1.00-4.8) x10E3/uL [place] # (Auto) 0.5 (0.0-0.8) x10E3/uL Eos # (Auto) 0.1 (0.0-0.45) x10E3/uL Baso # (Auto) 0.0 (0.0-0.2) x10E3/uL Comprehensive Metabolic Panel 07/06/24 Range/Units 06:10 Sodium 136 (136-145) mmol/L Potassium 4.0 (3.5-5.1) mmol/L Chloride 103 (98-107) mmol/L Carbon Dioxide 26.5 (21.0-31.0) mmol/L BUN 10 (7-25) mg/dL Creatinine 0.81 (0.60-1.20) mg/dL Glucose 98 (70-100) mg/dL Calcium 9.3 (8.6-10.3) mg/dL Intake and Output 07/05/24 07/06/24 07/06/24 23:59 07:59 15:59 Intake Total 100 / 100 Balance 100 / 100 Intake: Oral 100 / 100 Other: # Unmeasured Voids 4 Weight 120.2 kg 119.6 kg Date of Last Bowel Movement 07/05/24 07/05/24 Patient Weight 07/06/24 23:59 Weight 119.6 kg Lab 07/05/24 23:58 PT 11.0 INR 1.0 APTT 33.7 EKG Interpretations EKG Attestation EKG: I reviewed this ECG and interpreted as documented below: (EKG at [place] showed atrial fibrillation with RVR and nonspecific ST-T changes. Patient converted to normal sinus rhythm without obvious ST-T abnormality) A&P - Cardiology (1) NSTEMI (non-ST elevated myocardial infarction): Code(s): I21.4 - Non-ST elevation (NSTEMI) myocardial infarction Plan Assessment 1. Clinical picture of small acute coronary syndrome with peak troponin around 422. Difficult to determine whether this is a type II event related to atrial fibrillation with RVR versus underlying ischemic heart disease. Patient reported some upper neck and left jaw pain with a tachycardia suggestive of anginal symptomatology. Patient is moderate risk for ischemic heart disease. Currently patient is stable with no chest pain 2. Paroxysmal atrial fibrillation converted quickly to normal sinus rhythm 3. Obesity 4. Moderate risk for ischemic heart disease 5. High level of anxiety due to the illness of her and son both were diagnosed with cancer recently Plan 1. Standard therapy for acute coronary syndrome including aspirin, beta-blockers and IV heparin 2. Aggressive approach risk factor modification 3. I discussed with patient workup and treatment option at great length. We discussed the merits of invasive versus conservative management. Following the discussion the patient agreed to proceed with cardiac catheterization based on her MAHAMED score, presentation, risk factor and elevated cardiac enzyme. Risk, benefit alternative reviewed the patient at great length she understood and agreed 4. Add high potency statin Documented By: Troy Vasquez MD 07/06/24 1055 Signed By: <Electronically signed by MD Troy Vasquez> 07/06/24 8114 [facility] Work Phone: [phone]) [phone] [place] [id number] Cardiology Consult Note Signed Patient: Keely Chopra MR#: [id number] : 1955 Acct:[id number] Age/Sex: 68 / F Adm Date: 02/18/2 5 Loc: 3T Room: 2T5216-5 Type: ADM IN Attending Dr: Christina Julien MD Copies to: Le Huitron BOLT CUTTER MD Troy Baker MD~ Cardiology HPI History of Present Illness Consult Date: 07/06/24 Reason for Consult: Cardiac consultation requested for evaluation of elevated troponin and atrial fibrillation HPI: Ms. Chopra is a 68 year old female with no prior cardiac history except hypertension presented to [facility] complaining of dizziness, palpitation and left jaw pain. She was evaluated and was noted to be in atrial fibrillation with RVR which quickly converted to normal sinus rhythm after g iving her Cardizem. Episode occurred while the patient shopping. She felt lightheadedness and dizziness. The patient was evaluated in the emergency room and was noted to have elevated cardiac enzymes. As indicated above she converted quickly to normal sinus rhythm and the patient was transferred here for further care. Currently patient feels much better. She feels almost back to her baseline since her arrhythmia has resolved. Patient denies any previous history of coronary artery disease, congestive heart failure or valvular heart disease. Peak troponin was around 400. Review of Systems Review of Systems Review of systems: Review of system is negative other 1 mentioned above ON LICENSE OF [facility] Source: Unable to Obtain Medical History (Updated 07/06/24 @ 00:14 by Akua Ellsworth APRN) Tear meniscus knee surgical intervention Problem List clean-up per request of Phys. EHR Cmte Anxiety Problem List clean-up per request of Phys. EHR [facility] Hypertension Problem List clean-up per request of Phys. EHR [facility] Surgical History (Updated 04/29/23 @ 13:50 by [place]) H/O breast biopsy Problem List clean-up per request of Phys. EHR Cmte History of appendectomy Problem List clean-up per request of Phys. EHR [facility] History of hysterectomy Problem List clean-up per request of Phys. EHR [facility] Family History (Updated 07/06/24 @ 00:15 by Akua Ellsworth APRN) Mother Cancer Legacy FamHx Problem: Diagnosed with Cancer History of ovarian cancer Son Cancer lymph nodes, face, head and neck, jaw Other No significant family history Social History Smoking Status: Never smoker Substance Use Type: None Meds Medications and Allergies Allergies No Known Allergies Allergy (Verified 12/01/22 09:21) Home Medications bisoprolol 5 mg-hydrochlorothiazide 6.25 mg tablet 1 tab PO DAILY 12/01/22 [History Confirmed 07/06/24] nabumetone 500 mg tablet 500 mg PO BID PRN as directed 12/01/22 [History Confirmed 07/06/24] sertraline 100 mg tablet 50 mg PO DAILY 12/01/22 [History Confirmed 07/06/24] ropinirole 0.25 mg tablet 0.25 mg PO .at bedtime 07/06/24 [History Confirmed 07/06/24] semaglutide (weight loss) subcut 07/06/24 [History] Exam Physical Exam Vital Signs: Temp Pulse Resp BP Pulse Ox O2 Del Method 97.6 F 71 16 107/68 95 Room Air 07/06/24 04:04 07/06/24 08:00 07/06/24 08:00 07/06/24 08:00 07/06/24 08:00 07/06/24 08:00 Const General: cooperative, comfortable, no acute distress and well developed Nutritional Appearance: obese HEENT Head: atraumatic Mouth: oral mucosae normal Eyes General: appearance normal, both eyes and all related structures Pupils: PERRL Neck Neck: normal visual inspection, supple and no lymphadenopathy noted Neck mass: No Thyroid: thyroid normal Carotids: normal carotid upstroke Chest Chest palpation & inspection: normal inspection of the chest Resp Effort & Inspection: normal respiratory effort Auscultation: clear to auscultation bilaterally Cardio Palpation: normal PMI Rate: regular rate Rhythm: regular rhythm Heart Sounds: S1 normal and S2 normal GI Palpation: soft and no hepatosplenomegaly Percussion: normal to percussion Auscultation: normal bowel sounds Skin General: no rashes or lesions noted and dry skin Neuro General: patient alert, patient awake, patient oriented x3, tone normal and moves all extremities Extrem General: full ROM, capillary refill normal and no clubbing, cyanosis or edema Psych Mental Status: mental status grossly normal Results - Cardiology Labs 07/06/24 06:10 07/06/24 06:10 Lab results: Lipids 07/06/24 Range/Units 06:10 Triglycerides 126 (0-149) mg/dL Cholesterol 196 (140-200) mg/dL HDL Cholesterol 42 (23-92) mg/dL Cholesterol/HDL Ratio 4.7 (<5.0) CBC 07/06/24 Range/Units 06:10 RBC 4.47 (3.60-5.00) x10E6/uL Hgb 12.9 (11.8-15.4) g/dL Hct 36.8 (34.0-46.4) % Plt Count 168 (150-450) x10E3/uL Neut # (Auto) 3.6 (1.8-7.7) x10E3/uL Lymph # (Auto) 1.9 (1.00-4.8) x10E3/uL [place] # (Auto) 0.5 (0.0-0.8) x10E3/uL Eos # (Auto) 0.1 (0.0-0.45) x10E3/uL Baso # (Auto) 0.0 (0.0-0.2) x10E3/uL Comprehensive Metabolic Panel 07/06/24 Range/Units 06:10 Sodium 136 (136-145) mmol/L Potassium 4.0 (3.5-5.1) mmol/L Chloride 103 (98-107) mmol/L Carbon Dioxide 26.5 (21.0-31.0) mmol/L BUN 10 (7-25) mg/dL Creatinine 0.81 (0.60-1.20) mg/dL Glucose 98 (70-100) mg/dL Calcium 9.3 (8.6-10.3) mg/dL Intake and Output 07/05/24 07/06/24 07/06/24 23:59 07:59 15:59 Intake Total 100 / 100 Balance 100 / 100 Intake: Oral 100 / 100 Other: # Unmeasured Voids 4 Weight 120.2 kg 119.6 kg Date of Last Bowel Movement 07/05/24 07/05/24 Patient Weight 07/06/24 23:59 Weight 119.6 kg Lab 07/05/24 23:58 PT 11.0 INR 1.0 APTT 33.7 EKG Interpretations EKG Attestation EKG: I reviewed this ECG and interpreted as documented below: (EKG at [place] showed atrial fibrillation with RVR and nonspecific ST-T changes. Patient converted to normal sinus rhythm without obvious ST-T abnormality) A&P - Cardiology (1) NSTEMI (non-ST elevated myocardial infarction): Code(s): I21.4 - Non-ST elevation (NSTEMI) myocardial infarction Plan Assessment 1. Clinical picture of small acute coronary syndrome with peak troponin around 422. Difficult to determine whether this is a type II event related to atrial fibrillation with RVR versus underlying ischemic heart disease. Patient reported some upper neck and left jaw pain with a tachycardia suggestive of anginal symptomatology. Patient is moderate risk for ischemic heart disease. Currently patientis stable with no chest pain 2. Paroxysmal atrial fibrillation converted quickly to normal sinus rhythm 3. Obesity 4. Moderate risk for ischemic heart disease 5. High level of anxiety due to the illness of her and son both were diagnosed with cancer recently Plan 1. Standard therapy for acute coronary syndrome including aspirin, beta-blockers and IV heparin 2. Aggressive approach risk factor modification 3. I discussed with patient workup and treatment option at great length. We discussed the merits ofinvasive versus conservative management. Following the discussion the patient agreed to proceed with cardiac catheterization based on her MAHAMED score, presentation, risk factor and elevated cardiac enzyme. Risk, benefit alternative reviewed the patient at great length she understood and agreed 4. Add high potency statin Documented By: Troy Vasquez MD 07/06/24 1059 Signed By: 07/06/24 1105 [facility]02-19-2025 History and physical note Author Akua Ellsworth [facility] Note Date/Time July 06, 2024 3:37am [facility] [address] [place] [address] Hospitalist H&P Signed Patient: Keely Chopra MR#: [id number] : 1955 Acct:[id number] Age/Sex: 68 / F Adm Date: 5 Loc: Room: [address] [place] [address] Type: ADM IN Attending Dr: Mahendra Garcia MD Copies to: MD Le Pryor CNP, APRN~ HPI DATE OF EXAMINATION: 07/05/24 CHIEF COMPLAINT: dizziness, chest pressure HISTORY OF PRESENT ILLNESS: Ms. Chopra is a 68-year-old female with a PMH of HTN, anxiety, RLS that presented to [facility] emergency room for dizziness, lightheadedness, chest pressure and jaw pain. Patient reports that she was grocery shopping whenshe developed dizziness and lightheadedness and some jaw pain. She finished [employer] shopping and drove home sat in the chair for a little while and thought maybe she should eat something. She got up and go to the kitchen to get something to eat and was passed out, felt her heart was racing. She has a pulseox monitor at home and checked and her heart rate was 157. Said she developed some chest pressure on her way to the emergency room and had a stabbing in her back a couple of times. She reports having lots of stress at home right now, and son recently diagnosed with cancer, daughter was in the hospital at the same time. She has never smoked, does not drink alcohol. She states she had a stress test years ago that was negative. She currently denies chest pressure, chest pain, shortness of breath. She states that she does feel littlebit dizzy still but not as bad as earlier. [facility] chart review?initial EKG A-fib with RVR. Repeat EKG is sinus rhythm, no ST elevation noted. Chest x-ray showed no acute cardiopulmonary process. BC is unremarkable. Coags are also unremarkable. CMP with a glucose of 145, otherwise unremarkable. BNP 515. Troponins were trended?124.7, 410.2, 673.9. TSH 0.754. She was medicated with 162 mg aspirin, 1 L saline bolus, Zofran. She received 10 mg of diltiazem IV. Heparin drip was started. She wastransferred here as inpatient to the [facility] telemetry floor. Review of Systems Review of Systems Review of systems: A 10 point review of systems was obtained, negative unless noted in the HPI or below. ON LICENSE OF [facility] Medical History (Updated 07/06/24 @ 00:14 by Akua Ellsworth APRN) Tear meniscus knee surgical intervention Problem List clean-up per request of Phys. EHR Cmte Anxiety Problem List clean-up per request of Phys. EHR Cmte Hypertension Problem List clean-up per request of Phys. EHR Cmte Surgical History (Updated 04/29/23 @ 13:50 by [place]) H/O breast biopsy Problem List clean-up per request of Phys. EHR Cmte History of appendectomy Problem List clean-up per request of Phys. EHR Cmte History of hysterectomy Problem List clean-up per request of Phys. EHR Cmte Family History (Updated 07/06/24 @ 00:15 by Akua Ellsworth APRN) Mother Cancer Legacy FamHx Problem: Diagnosed with Cancer History of ovarian cancer Son Cancer lymph nodes, face, head and neck, jaw Other No significant family history Social History Marital Status: Household Members: spouse Smoking Status: Never smoker Substance Use Type: None Meds Medications and Allergies Allergies No Known Allergies Allergy (Verified 12/01/22 09:21) Home Medications bisoprolol 5 mg-hydrochlorothiazide 6.25 mg tablet 1 tab PO DAILY 12/01/22 [History Confirmed 07/06/24] nabumetone 500 mg tablet 500 mg PO BID PRN as directed 12/01/22 [History Confirmed 07/06/24] sertraline 100 mg tablet 50 mg PO DAILY 12/01/22 [History Confirmed 07/06/24] ropinirole 0.25 mg tablet 0.25 mg PO .at bedtime 07/06/24 [History Confirmed 07/06/24] semaglutide (weight loss) subcut 07/06/24 [History] Exam Physical Exam Vital Signs: Temp Resp BP Pulse Ox O2 Del Method 98 F 18 152/92 H 98 Room Air 07/05/24 23:50 07/05/24 23:50 07/05/24 23:50 07/05/24 23:50 07/05/24 23:50 Narrative: CONST- Appears well -developed and well nourished. Morbidly obese?BMI 48.5 HEAD - Normocephalic and atraumatic EENT-Sclera nonicteric, conjunctive are non-erythemic, moist oral mucosa, pharynx clear NECK-Supple, no cervical lymphadenopathy CARDIAC-normal rate, regular rhythm, S1 & S2. PULM-diminished without wheeze or rhonchi, RA, no accessory muscle use or cough noted ABD - Soft. Bowel sounds are normal. No distention. No tenderness EXTREM-non pitting edema BLE calves, nontender SKIN- W/D good turgor MS- MAEX4 spontaneously with equal with equal strength NEURO- A&Ox3 speech clear and tongue midline, equal facial symmetry, no focal motor deficits PSYCH-Mood, affect, and behavior appropriate Assessment & Plan Assessment/Plan (1) NSTEMI (non-ST elevated myocardial infarction): (2) A-fib: Plan NSTEMI?troponins 124-->410-->674 - Stat EKG, troponin, coags, anti xa - CBC, BMP., Mag, troponin in am - Consult cardiology - Low dose aspirin daily - Restart heparin drip - Metoprolol 12.5mg po bid A-fib- converted with 10mg diltiazem IVP in [place] ER - Stat EKG is sinus rhythm- No ST changes noted Chronic conditions HTN Depression/Anxiety DVT PPx?heparin Diet order?regular, n.p.o. at 3 AM CODE STATUS?full code IP vs OBS Justification Based on differential dx, clinical care plan, and risk of adverse events, if untreated, in my clinical judgement this patient requires an acute care setting as: INPATIENT because of an expectation of an over 2 midnight stay. Estimated length of stay (# of days): 3 Documented By: Akua Ellsworth APRN 07/05/24 8538 Signed By: <Electronically signed by RAO Ellsworth> 07/06/24 0022 <Electronically signed by Mahendra Garcia MD> 07/06/24 0337 [facility] Work Phone: 1(741) 219-949702-19-2025 [place] [address] Hospitalist H&P Signed Patient: Keely Chopra MR#: [id number] : 1955 Acct:[id number] Age/Sex: 68 / F Adm Date: 5 Loc: Room: [address] [place] [address] Type: ADM IN Attending Dr: Mahendra Garcia MD Copies to: MD Le Pryor CNP, APRN~ HPI DATE OF EXAMINATION: 07/05/24 CHIEF COMPLAINT: dizziness, chest pressure HISTORY OF PRESENT ILLNESS: Ms. Chopra is a 68-year-old female with a PMH of HTN, anxiety, RLS that presented to [facility] emergency room for dizziness, lightheadedness, chest pressure and jaw pain. Patient reports that she was grocery shopping whenshe developed dizziness and lightheadedness and some jaw pain. She finished [employer] shopping and drove home sat in the chair for a little while and thought maybe she should eat something. She got up and go to the kitchen to get something to eat and was passed out,felt her heart was racing. She has a pulseox monitor at home and checked and her heart rate was 157. Said she developed some chest pressure on her way to the emergency room and had a stabbing in her back a couple of times. She reports having lots of stress at home right now, and son recently diagnosed with cancer, daughter was in the hospital at the same time. She has never smoked, does not drink alcohol. She states she had a stress test years ago that was negative. She currently denieschest pressure, chest pain, shortness of breath. She states that she does feel littlebit dizzy still but not as bad as earlier. [facility] chart review?initial EKG A-fib with RVR. Repeat EKG is sinus rhythm, no ST elevation noted. Chest x-ray showed no acute cardiopulmonary process. BC is unremarkable. Coags are also unremarkable. CMP with a glucose of 145, otherwise unremarkable. BNP 515. Troponins were trended?124.7, 410.2, 673.9. TSH 0.754. She was medicated with 162 mg aspirin, 1 L saline bolus, Zofran. She received 10 mg of diltiazem IV. Heparin drip was started. She wastransferred here as inpatient to the [facility] telemetry floor. Review of Systems Review of Systems Review of systems: A 10 point review of systems was obtained, negative unless noted in the HPI or below. ON LICENSE OF [facility] Medical History (Updated 07/06/24 @ 00:14 by Akua Ellsworth APRN) Tear meniscus knee surgical intervention Problem List clean-up per request of Phys. EHR Cmte Anxiety Problem List clean-up per request of Phys. EHR Cmte Hypertension Problem List clean-up per request of Phys. EHR [facility] Surgical History (Updated 04/29/23 @ 13:50 by [place]) H/O breast biopsy Problem List clean-up per request of Phys. EHR Cmte History of appendectomy Problem List clean-up per request of Phys. EHR Cmte History of hysterectomy Problem List clean-up per request of Phys. EHR [facility] Family History (Updated 07/06/24 @ 00:15 by Akua Ellsworth APRN) Mother Cancer Legacy FamHx Problem: Diagnosed with Cancer History of ovarian cancer Son Cancer lymph nodes, face, head and neck, jaw Other No significant family history Social History Marital Status: Household Members: spouse Smoking Status: Never smoker Substance Use Type: None Meds Medications and Allergies Allergies No Known Allergies Allergy (Verified 12/01/22 09:21) Home Medications bisoprolol 5 mg-hydrochlorothiazide 6.25 mg tablet 1 tab PO DAILY 12/01/22 [History Confirmed 07/06/24] nabumetone 500 mg tablet 500 mg PO BID PRN as directed 12/01/22 [History Confirmed 07/06/24] sertraline 100 mg tablet 50 mg PO DAILY 12/01/22 [History Confirmed 07/06/24] ropinirole 0.25 mg tablet 0.25 mg PO .at bedtime 07/06/24 [History Confirmed 07/06/24] semaglutide (weight loss) subcut 07/06/24 [History] Exam Physical Exam Vital Signs: Temp Resp BP Pulse Ox O2 Del Method 98 F 18 152/92 H 98 Room Air 07/05/24 23:50 07/05/24 23:50 07/05/24 23:50 07/05/24 23:50 07/05/24 23:50 Narrative: CONST- Appears well -developed and well nourished. Morbidly obese?BMI 48.5 HEAD - Normocephalic and atraumatic EENT-Sclera nonicteric, conjunctive are non-erythemic, moist oral mucosa, pharynx clear NECK-Supple, no cervical lymphadenopathy CARDIAC-normal rate, regular rhythm, S1 & S2. PULM-diminished without wheeze or rhonchi, RA, no accessory muscle use or cough noted ABD - Soft. Bowel sounds are normal. No distention. No tenderness EXTREM-non pitting edema BLE calves, nontender SKIN- W/D good turgor MS- MAEX4 spontaneously with equal with equal strength NEURO- A&Ox3 speech clear and tongue midline, equal facial symmetry, no focal motor deficits PSYCH-Mood, affect, and behavior appropriate Assessment & Plan Assessment/Plan (1) NSTEMI (non-ST elevated myocardial infarction): (2) A-fib: Plan NSTEMI?troponins 124-->410-->674 - Stat EKG, troponin, coags, anti xa - CBC, BMP., Mag, troponin in am - Consult cardiology - Low dose aspirin daily - Restart heparin drip - Metoprolol 12.5mg po bid A-fib- converted with 10mg diltiazem IVP in [place] ER - Stat EKG is sinus rhythm- No ST changes noted Chronic conditions HTN Depression/Anxiety DVT PPx?heparin Diet order?regular, n.p.o. at 3 AM CODE STATUS?full code IP vs OBS Justification Based on differential dx, clinical care plan, and risk of adverse events, if untreated, in my clinical judgement this patient requires an acute care setting as: INPATIENT because of an expectation ofan over 2 midnight stay. Estimated length of stay (# of days): 3 Documented By: Akua Ellsworth APRN 07/05/240 Signed By: 07/06/24 0022 07/06/24 0337 [facility]02-19-2025 Evaluation note* Diagnosis Onset Date Resolution Status Admit Date A-fib acute July 05, 2024 11:26pm NSTEMI (non-ST elevated myocardial infarction) acute July 05, 2024 11:26pm [facility] Work Phone: 1(644) 223-818711-04-2024 History of Present illness Narrative* Alecia Ortez, RAO-BOLT CUTTER - 03/21/2024 10:40 AM EST Follow up Diagnosis: Psoriasis Location: scalp and [...] below: 1. Psoriasis vulgaris (CMS/HCC) Left [place], Right Postauricular Area, Scalp Well-marginated erythematous papules/plaques [...] 1 year, follow [id number] History of Present illness Narrative* HEAVEN Smart - 01/25/2024 9:55 AM EDT Images from the original note were not included. Skin Check Location: Patient requests a full body skin examination Dermatologic history: no history of skin cancer, no history of atypical moles, no family history ofmelanoma Last visit: 6 months ago Established patient [...] benign pigmented lesions that occur on sun-exposed andsun-damaged skin. No treatment is necessary. Recommended regular [...] 4. Seborrheic keratosis, inflamed Neck - Anterior [place] and brown stuck on verrucous scaly papule [...] office if abnormal redness or tenderness develops atthe treatment site. Cryotherapy today, see procedure note. Diagnosis: Inflamed seborrheic keratosis Indication: Inflamed Consent: Verbal consent was obtained and risks were discussed, including, but not limited to risks of scarring, darker or sewer inspector pigmentary changes, recurrence, incomplete removal and infection. [...] Anterior 5. Psoriasis vulgaris (CMS/HCC) Left [place], Right Postauricular Area, Scalp Well-marginated erythematous papules/plaques [...] lesion: 0.7 x 0.6 cm Left Chin [place] pearly papule Lesion biopsy Type of biopsy: [...] psoriasis/ rash [facility] Diagnosis Psoriasis vulgaris (CMS/HCC) Other psoriasis Rash and other nonspecific skin eruption [facility]* Diagnosis Seborrheic keratosis Lentigines Melanocytic nevus of trunk Benign neoplasm of skin of trunk, except scrotum Seborrheic keratosis, inflamed Psoriasis vulgaris (CMS/HCC) Other psoriasis Rash and other nonspecific skin eruption Neoplasm of unspecified behavior of bone, soft tissue, and skin documented in [facility]* Diagnosis Paroxysmal atrial fibrillation (Multi)- Primary Atrial fibrillation Myocardial infarction type 2 (Multi) documented in this encounter [facility] Work Phone: Evaluation note* Diagnosis NSTEMI (non-ST elevated myocardial infarction) (HCC)- Primary Acute myocardial infarction, subendocardial infarction, episode of care unspecified Hypertension, unspecified type [facility] Diagnosis Paroxysmal atrial fibrillation (Multi) Atrial fibrillation documented in this encounter [facility] Work Phone: Evaluation note* Diagnosis Atrial flutter (HCC)- Primary Atrial flutter [facility] Diagnosis NSTEMI (non-ST elevated myocardial infarction) (HCC) Acute myocardial infarction, subendocardial infarction, episode of care unspecified Hypertension, unspecified type Atrial flutter (HCC) Atrial flutter [facility] Additional Instructions DISCHARGE INSTRUCTIONS FOR CARDIAC OPEN DEVELOPER OPERATOR PROCEDURE: Heart Cath The following instructions have been prepared to help you care for yourself, or be cared for upon your return home. 1. You were given conscious sedation. Do not operate a vehicle, power tools, make important decisions, or drink alcohol for 24 hours. You might be drowsy or light headed. Return to the Emergency Room if you have trouble breathing, walking or nausea and vomiting. 2. FOR BLEEDING: Apply continuous pressure to the site and call 911. 3. Operative Site Care: Keep the dressing clean and dry. You may change the dressing only if soiled or wet. You may remove the dressing the following morning. You may wash over the puncture site in the shower. If the puncture site is at the wrist no soaking for 3 days. Some bruising or slight swelling may be present. -Signs of infection are redness, warmth, swelling, getting more sore, colored drainage, fever or chills. -Should the arm or leg become cold, numb, blue or white, call the woven paper hat mender immediately. 4. ACTIVITY: You are advised to go directly home from the hospital. Restrict your activities for the rest of the day. Resume light or normal activities tomorrow. Do not engage in any activity that will stress the puncture site. Avoid heavy lifting (over 15 lbs.), straining or bending at the catheter site for 48 hours after discharge. If the puncture site is at the wrist do not manipulate wrist for 24 hours and no lifting more than 3 lbs for 3 days. 5. DIET:You may eat your regular diet when you desire. 6. MEDICATIONS: Resume your daily prescription schedule. Prescriptions may be sent with you if needed. Use as directed. When taking pain medications, you may experience dizziness or drowsiness. Do not drink alcohol or drive when taking pain medications. 7. If you should experience episodes of angina e.g. chest discomfort, heaviness, tightness, pressure, burning, with or without radiation to the neck, jaws, arms, or back- Use 1 Nitrostat under your tongue every 5-10 minutes, and up to 3 tablets. If no relief- Call 911 and go to the nearest Emergency Room. -Notify the office for recurrent angina, chest pain or other concerns. You may NOT drive yourself home! Follow the medication instructions provided on your discharge. If the dosages and instructions on this sheet differ from the dosage and instructions on the bottle, follow the instructions on the bottle. [facility] is not responsible for incorrect prescription information provided by the patient during their visit. Do not stop your medications without consulting your health care provider. Please take the list with you to your next doctor's appointment.[facility] Work Phone: Hospital Discharge instructions Additional Instructions Take metoprolol as prescribed. Follow-up with your woven paper hat mender for ongoing management.[facility] Work Phone: Reason for visit Narrative* Cardiovascular (Routine) - Authorized Specialty Diagnoses / Procedures Referred By Contac t Referred To Contact Diagnoses Paroxysmal atrial fibrillation (Multi) Procedures ECG 12 Lead Troy Vasquez MD [address] [address] Phone: tel: fax: Referral ID Status Reason Start Date Expiration Date V isits Requested Visits Authorized [id number] Authorized 08/08/2024 08/08/2025 1 1 [facility] Work Phone: Summary Purpose Family History No Family History Records Found Relationship Condition Age at Onset Recorded Date/T gaurav Not Specified No pertinent family history Unknown mother Unknown Malignant neoplasm Unknown History of ovarian cancer Unknown son Malignant neoplasm Unknown Advance Directives No Advanced Directives Records Found Advance Directive Response Recorded Date/ Time Advance Directives No November 27 7:53am Chief Complaint and Reason for Visit Chief Complaint Admit Date NStemi, A-Flutter July 05, 2024 11:26pm Reason for Visit Admit Date A-fib July 05, 2024 11:26pm NSTEMI (non-ST elevated myocardial infar ction) July 05, 2024 11:26pm Chief Complaint Admit Date NStemi, A-Flutter July 05, 2024 11:26pm chest pain/ recent heart attack July 07, 2024 6:47am Additional Source Comments INFORMATION SOURCE (unrecogn ized section and content) DATE CREATED AUTHOR 05/16/2022 [facility] DATE CREATED AUTHOR AUTHOR'S ORGANIZ ATION 03/22/2024 [facility] EPIC DATE CREATED AUTHOR AUTHOR'S ORGANIZ ATION 07/20/2024 [facility] DATE CREATED AUTHOR AUTHOR'S ORGANIZ ATION 08/23/2024 [facility] DATE CREATED AUTHOR AUTHOR'S ORGANIZ ATION 08/31/2024 [place] [facility] DATE CREATED AUTHOR AUTHOR'S ORGANIZ ATION 09/25/2024 [facility] Reason for Visit (unrecogniz ed section and content) Reason Comments Follow-up Reason Comments Skin Check Reason Comments Follow-up [facility] 07/06 Reason Comments Establish Care Specialty Diagnoses / Procedures Referred By Contac t Referred To Contact Cardiology Diagnoses NSTEMI (non-ST elevated myocardial infarction) (HCC) Hypertension, unspecified type Le Huitron CNP [address] [place] [address] Phone: tel: fax: Juan Domingo MD [address] [place] [address] Phone: tel: fax: Referral ID Status Reason Start Date Expiration Date Visits Re quested Visits Authorized [id number] Closed 08/17/2024 08/17/2025 1 1 Care Teams (unrecognized sec tion and content) Team Status: Active Member Role Status Dates Le Huitron NP-Jorge Luis Primary Care Provider Active Team Status: Inactive Member Role Status Dates FRIDA العراقي Primary Care Provider Active Start: July 05, 2024 End: July 06, 2024 Mahendra Garcia MD Admit Provider Active Start: July 05, 2024 End: July 06, 2024 Christina Julien MD Attending Provider Active Star t: July 05, 2024 End: July 06, 2024 Team Status: Inactive Member Role Status Dates FRIDA العراقي Primary Care Provider Active Start: July 07, 2024 End: July 07, 2024 Rigoberto Alfaro DO Emergency Provider Active Start: July 07, 2024 End: July 07, 2024 Price Clerk Relationship Specialty Start Date End Date Le Huitron APRN-GENIE [address] [place] [address] PCP - General 08/08/24 Price Clerk Relationship Specialty Start Date End Date CristianeLe CNP [address] [place] [id number] PCP - General Nurse Practitioner 08/17/24 Price Clerk Relationship Specialty Start Date End Date CristianeLe so APRN-BOLT CUTTER [address] [place] [address] PCP - General 08/08/24 Price Clerk Relationship Specialty Start Date End Date CristianeLe so CNP [address] [place] [id number] PCP - General Nurse Practitioner 08/17/24 Price Clerk Relationship Specialty Start Date End Date Cristiane Le Zimmer CNP [address] [place] [id number] PCP - General Nurse Practitioner 08/17/24 FOR RECORDS PERTAINING TO PATIENTS WHO ARE [...] BE BASED ON THE PRIMARY CLINICAL RECORDS. [facility] [employer] provides no warranty or guarantee of the accuracy or completeness of information in this document.
--- NOTE | 2024-09-25 11:14 | ECG_ITS ---
The [facility] Test Date: 2024-09-25 Pat Name: KEELY CHOPRA Department: Room: - Gender: Female Compensation And Hris Analyst: : 1955 Requested By: 1030 Order Number: [id number] Reading MD: NICK RUBIN M.D. Measurements Intervals [place] Rate: 161 P: -39661 AR: QRS: 65 QRSD: 82 T: -50 QT: 282 QTc: 371 Interpretive Statements Atrial flutter with 2:[address]-T wave changes 9150 abnormal ECG Compared to ECG 07/05/2024 14:15:21 Atrial flutter has replaced sinus rhythm Electronically Signed On 09-25-2024 12:57:26 EDT by NICK RUBIN M.D.
--- NOTE | 2024-09-25 11:15 | ED.GENADUL1 ---
HPI HPI - General Adult General Chief complaint: Chest Pain Stated complaint: CHEST PAIN Time Seen by Provider: 09/25/24 11:03 Source: patient Mode of arrival: walk-in History of Present Illness HPI narrative: 69-year-old female presents to the emergency department for chief complaint of chest pain and palpitations. It started just before coming into the emergency department and has been continuous. She was taken off of flecainide yesterday and switched to Cardizem. She had been on that medication for an abnormal heart rhythm. She states there was some disagreement about what the exact rhythm was. 1 person told her that it was atrial flutter and somebody else told her that it was something else. No fever cough or syncope. Related Data Home Medications ?Medication ?Instructions ?Recorded ?Confirmed alprazolam 0.25 mg tablet 0.25 mg PO DAILY PRN anxiety 07/05/24 09/25/24 ropinirole 0.25 mg tablet 0.25 mg PO BEDTIME 07/05/24 09/25/24 sertraline 100 mg tablet 100 mg PO Q24H 07/05/24 09/25/24 diltiazem HCl 180 mg 180 mg PO Q24H 09/25/24 09/25/24 capsule,extended release 24 hr Allergies Allergy/AdvReac Type Severity Reaction Status Date / Time No Known Drug Allergies Allergy Verified 09/25/24 11:02 Review of Systems ROS Narrative A ten point review of systems is negative except as noted above. PFSH PFS Social History Little interest or pleasure in doing things: not at all Feeling down, depressed, or hopeless: not at all Exam Narrative Exam Narrative: Nurses note and vital signs reviewed and patient is not hypoxic. General: The patient appears well and in no apparent distress. Patient is resting comfortably on cart. Skin: Warm, dry, no pallor noted. There is no rash noted. Head: Normocephalic, atraumatic Eye: Normal conjunctiva, no drainage Ears, Nose, Mouth, and Throat: oral mucosa is moist. Nares patent. Cardiovascular: Regular Rate and Rhythm and tachycardic Respiratory: Patient is in no distress, no accessory muscle use, lungs are clear to auscultation, no wheezing, rales or rhonchi Back: non-tender GI: Soft and nontender Musculoskeletal: The patient has no evidence of calf tenderness, no pitting edema, symmetrical pulses noted bilaterally Neurological: A&O, normal speech Psychiatric: Cooperative Constitutional Vital Signs, click to edit/add: Last Vital Signs Temp 98.0 F 09/25/24 11:02 Pulse 78 09/25/24 11:56 Resp 26 H 09/25/24 11:56 BP 158/86 H 09/25/24 11:56 Pulse Ox 98 09/25/24 11:56 O2 Del Method Room Air 09/25/24 11:02 Course Vital Signs Vital signs: Vital Signs Temperature 98.0 F 09/25/24 11:02 Pulse Rate 165 H 09/25/24 11:02 Respiratory Rate 20 09/25/24 11:02 Pulse Oximetry 100 09/25/24 11:02 Oxygen Delivery Method Room Air 09/25/24 11:02 Temperature 98.0 F 09/25/24 11:02 Pulse Rate 78 09/25/24 11:56 Respiratory Rate 26 H 09/25/24 11:56 Blood Pressure 158/86 H 09/25/24 11:56 Pulse Oximetry 98 09/25/24 11:56 Oxygen Delivery Method Room Air 09/25/24 11:02 Medical Decision Making MDM Narrative Medical decision making narrative: The patient was given 20 mg of IV Cardizem and she converted back into a sinus rhythm remained in sinus rhythm. Her workup including troponin is negative. 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 Treatment diagnosis and follow-up were discussed with the patient. Differential Diagnosis Differential Diagnosis: Atrial flutter, atrial fibrillation Lab Data Lab results reviewed: Yes I reviewed the patient's lab results Labs: Lab Results 09/25/24 Range/Units 11:10 WBC 7.4 (4.0-11.0) 10^3/uL RBC 4.93 (4.20-5.40) 10^6/uL Hgb 14.0 (12.0-16.0) g/dL Hct 42.3 (36.0-48.0) % MCV 85.8 (81.0-99.0) fL MCH 28.4 (26.7-34.0) pg MCHC 33.1 (29.9-35.2) g/dL RDW 13.6 (11.0-15.0) % Plt Count 202 (150-450) 10^3/uL MPV 9.5 (9.5-13.5) fL Neut % (Auto) 44.4 (43.0-75.0) % Lymph % (Auto) 42.6 (20.5-60.0) % Preston % (Auto) 8.8 (1.7-12.0) % Eos % (Auto) 3.4 (0.9-7.0) % Baso % (Auto) 0.7 (0.2-2.0) % Neut # (Auto) 3.3 (1.4-6.5) 10^3/uL Lymph # (Auto) 3.2 (1.2-3.8) 10^3/uL Preston # (Auto) 0.7 (0.3-0.8) 10^3/uL Eos # (Auto) 0.3 (0.0-0.7) 10^3/uL Baso # (Auto) 0.1 (0.0-0.1) 10^3/uL Abs Immat Gran (auto) 0.01 (0.00-0.03) 10^3/uL Imm/Tot Granulo (auto) 0.1 (0.0-0.5) % Sodium 133 L (136-145) mmol/L Potassium 3.8 (3.5-5.1) mmol/L Chloride 97 L (98-107) mmol/L Carbon Dioxide 26.5 (21.0-32.0) mmol/L Anion Gap 13.3 BUN 18.0 (7.0-18.0) mg/dL Creatinine 0.95 (0.55-1.02) mg/dL Est GFR ( Amer) >60 (>=60 mL/min/1.73m^2) Est GFR (Non-Af Amer) 58 L (>=60 mL/min/1.73m^2) BUN/Creatinine Ratio 18.9 Glucose 108 H (74-106) mg/dL Calcium 9.3 (8.5-10.1) mg/dL Magnesium 1.8 (1.8-2.4) mg/dL Troponin I High Sens 5.4 (4.0-51.3) pg/mL Imaging Data Chest x-ray: My impression: No acute findings ECG Data Attestation: I personally reviewed and interpreted this ECG as follows: (First EKG on my interpretation shows likely atrial flutter with a rate of 161. Repeat EKG shows sinus rhythm with a rate of 77 and no acute change) Critical Care Time Critical Care Time Critical Care Time: Yes Total Critical Care Time: 35 Attestation: Due to the high probability of sudden and clinically significant deterioration in the patient's condition he/she required the highest level of my preparedness to intervene urgently I provided critical care time including documentation time, medication orders and management, reevaluation, vital sign assessment, ordering and reviewing of lab tests, ordering and reviewing of x-ray studies, and admission orders. Aggregate critical care time is 35 minutes including only time during which I was engaged in work directly related to his/her care and did not include time spent treating other patients simultaneously. Discharge Plan Discharge Chief Complaint: Chest Pain Clinical Impression: Atrial flutter Patient Disposition: Home, Self-Care Time of Disposition Decision: 12:36 Condition: Good Mode of Transportation: Private Vehicle Prescriptions / Home Meds: No Action diltiazem HCl 180 mg capsule,extended release 24hr 180 mg PO Q24H alprazolam 0.25 mg tablet 0.25 mg PO DAILY PRN (Reason: anxiety) sertraline 100 mg tablet 100 mg PO Q24H ropinirole 0.25 mg tablet 0.25 mg PO BEDTIME Print Language: Congolese Instructions: Atrial Flutter (ED) Referrals: LE SAUER [Primary Care Provider, [facility]] - 1 week
--- NOTE | 2024-09-25 11:16 | PC.NURSE ---
Reports recent medication changes.
[2024-09-25] MEDS: DILTIAZEM HCL 25 MG/5 ML VIAL 20 MG IV (11:26)
[2024-09-25 11:28] LABS: Basophils Absolute Auto 0.1 10^3/uL (0.0-0.1); Basophils Percent Auto 0.7 % (0.2-2.0); Eosinophils Absolute Auto 0.3 10^3/uL (0.0-0.7); Eosinophils Percent Auto 3.4 % (0.9-7.0); Hematocrit 42.3 % (36.0-48.0); Immature Granulocytes Abs Auto 0.01 10^3/uL (0.00-0.03); Immature Granulocytes Pct Auto 0.1 % (0.0-0.5); Lymphocytes Absolute Auto 3.2 10^3/uL (1.2-3.8); Lymphocytes Percent Auto 42.6 % (20.5-60.0); Mean Corpuscular HGB Conc 33.1 g/dL (29.9-35.2); Mean Corpuscular Hemoglobin 28.4 pg (26.7-34.0); Mean Corpuscular Volume 85.8 fL (81.0-99.0); Mean Platelet Volume 9.5 fL (9.5-13.5); Monocytes Absolute Auto 0.7 10^3/uL (0.3-0.8); Monocytes Percent Auto 8.8 % (1.7-12.0); Neutrophils Absolute Auto 3.3 10^3/uL (1.4-6.5); Neutrophils Percent Auto 44.4 % (43.0-75.0); Platelet Count 202 10^3/uL (150-450); Red Blood Count 4.93 10^6/uL (4.20-5.40); Red Cell Distribution Width 13.6 % (11.0-15.0); White Blood Count 7.4 10^3/uL (4.0-11.0)
--- NOTE | 2024-09-25 11:37 | ECG_ITS ---
The [facility] [place] Test Date: 2024-09-25 Pat Name: KEELY CHOPRA Department: Room: - Gender: Female Color Mixer: : 1955 Requested By: 1030 Order Number: [id number] Reading MD: NICK RUBIN M.D. Measurements Intervals [place] Rate: 77 P: 90 SD: 160 QRS: 25 QRSD: 78 T: 50 QT: 358 QTc: 390 Interpretive Statements 1100 Sinus rhythm 1102 Sinus arrhythmia 9110 normal ECG Compared to ECG 09/25/2024 11:07:15 Sinus rhythm has replaced atrial flutter ST (T wave) deviation no longer present Electronically Signed On 09-25-2024 12:58:16 EDT by NICK RUBIN M.D.
[2024-09-25 11:47] LABS: Anion Gap 13.3; BUN Creatinine Ratio 18.9; Calcium 9.3 mg/dL (8.5-10.1); Carbon Dioxide 26.5 mmol/L (21.0-32.0); Chloride 97 mmol/L (98-107); Estimated GFR (African America >60 (>=60 mL/min/1.73m^2); Estimated GFR (Non-African Ame 58 (>=60 mL/min/1.73m^2); Glucose 108 mg/dL (74-106); Magnesium 1.8 mg/dL (1.8-2.4); Potassium 3.8 mmol/L (3.5-5.1); Sodium 133 mmol/L (136-145); Troponin I High Sensitivity 5.4 pg/mL (4.0-51.3)
== END 2024-09-25 13:20 | disposition home or self-care (01) ==
PROVIDERS: Emergency Provider Emergency Medicine; PCP Nurse Practitioner
DX: I48.92 Unspecified atrial flutter (principal); R07.9 Chest pain, unspecified; Z79.899 Other long term (current) drug therapy
CPT/HCPCS: 36415; 71045; 80048; 83735; 84484; 85025; 93005; 96374; 99285

== ENCOUNTER 2024-09-28 17:12 | Emergency (ER) | payer MEDICARE, OTHER, SELFPAY ==
--- NOTE | 2024-09-28 17:20 | ECG_ITS ---
[facility] Test Date: 2024-09-28 Pat Name: KEELY CHOPRA Department: Room: - Gender: Female Net Web Developer: : 1955 Requested By: 1030 Order Number: [id number] Reading MD: NICK RUBIN M.D. Measurements Intervals [place] Rate: 162 P: -41458 [place]: -[address]408 QRS: 83 QRSD: 78 T: -43 QT: 264 QTc: 354 Interpretive Statements Supraventricular tachycardia [address] depression, possible subendocardial injury 4564 Twave abnormality, possible lateral ischemia 4664 [place] abnormality, possible inferior ischemia 9150 abnormal ECG Compared to ECG 09/25/2024 11:32:46 ST (T wave) deviation now present Possible ischemia now present Sinus rhythm no longer present Electronically Signed On 09-28-2024 23:17:23 EDT by NICK RUBIN M.D.
[2024-09-28 17:24] VITALS: BP 146/118; PULSE 160; TEMP 36.6; O2SAT 96; BMI 47.6
[2024-09-28] MEDS: DILTIAZEM HCL 25 MG/5 ML VIAL 20 MG IV (17:29)
--- OUTSIDE RECORDS SUMMARY | 2024-09-28 17:29 | XMS_ITS | CCD ---
Author Organization [facility] Care Team Providers Care Machine Package Sealer Name Role Phone MEL, DR JOY Benton Consulting Unavailable MEL, DR JOY Benton Attending Unavailable MEL, DR JOY Benton Admitting Unavailable MEL, DR JOY Benton Primary Care Unavailable POMONA, DR YOSSI Pineda Consulting Unavailable MEL, DR JYO Benton Primary Care Unavailable LEAL, DR JOY Benton Consulting Unavailable MEL, DR JOY Benton Attending Unavailable MEL, DR JOY Benton Admitting Unavailable Unavailable Primary Care Provider UnavailALECIA Syed Attending Unavailable PÉREZ, ALECIA Middleton Attending Unavailable ALECIA ORTEZ Attending Unavailable ALECIA ORTEZ Attending Unavailable Cristiane STOVE FITTER-CLe Primary Care Provider Mahendra Garcia MD Admit Provider Christina Julien MD Attending Provider Rigoberto Alfaro DO Emergency Provider UnaeL Solis Primary Care Unavailable Rigoberto Alfaro Admitting [...] Care Provider TROY VASQUEZ Attending Unavailable CRISTIANE, LE Odonnell Primary Care Unavailable TROY VASQUEZ Referring [...] Azithromycin; Translations: [Zithromax] Drug Allergy 06-22-2015 [facility] Repository (8 sources) Azithromycin; Translations: [AZITHROMYCIN] Drug [...] aftercare (2 sources) Drug 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; 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 -Nonspecific T-abnormality. [facility] ECG 12-LEADon 09-23-2024 ECG 12-LEAD Sinus Rhythm Low voltage in precordial leads. -Nonspecific T-abnormality. Normal [facility] Ambulatory Family Medicine Office/Clini c Noteon 08-30-2024 [...] cough and congestion, 200 mL, Refill(s) 0, [facility], 153, cm, 08/30/24 11:22:00 EDT, Height/Length Dosing, 118.4, kg, 08/30/24 11:22:00 EDT, Weight Dosing doxycycline, 100 mg = 1 cap(s), Oral, q12hr, X 7 day(s), # 14 cap(s), Refills(s) 0, Pharmacy: [facility], 153, cm, 08/30/24 11:22:00 EDT, Height/Length [...] Screening Negative 3352F Influenza Type A&B POC 20380 Most recent diastolic blood pressure <80 mm Hg 3078F Patient screen for fall risk: no falls in last year or 1 fall with no injury in last year 1101F Systolic BP <130 mm Hg (Most Recent) 3074F 3. Congestion of nasal sinus (R09.81: Nasal congestion) bromfed sent Ordered: brompheniramine/dextrometh orphan/PSE, 5 mL, Oral, QID for cough and congestion, 200 mL, Refill(s) 0, [facility], 153, cm, 08/30/24 11:22:00 EDT, Height/Length Dosing, 118.4, kg, 08/30/24 11:22:00 EDT, Weight Dosing doxycycline, 100 mg = 1 cap(s), Oral, q12hr, X 7 day(s), # 14 cap(s), Refills(s) 0, Pharmacy: [facility], 153, cm, 08/30/24 11:22:00 EDT, Height/Length [...] cough and congestion, 200 mL, Refill(s) 0, [facility], 153, cm, 08/30/24 11:22:00 EDT, Height/Length Dosing, 118.4, kg, 08/30/24 11:22:00 EDT, Weight Dosing doxycycline, 100 mg = 1 cap(s), Oral, q12hr, X 7 day(s), # 14 cap(s), Refills(s) 0, Pharmacy: [facility], 153, cm, 08/30/24 11:22:00 EDT, Height/Length [...] 1036F Depressi (more content not included)... Normal [facility] Comment on above: Result Comment: Elec tronically Signed By: eL Montano\.br\Date and Time Signed: 08/30/24 11:54 EDT [...] 8:20 AM EDT With: Le Montano Where: [facility] Medicine [address] [address]- Medications What How Much When Why Instructions New alprazolam (alprazolam 0.25 mg Tab) 0.25 Milligram By Mouth Every day prn Dx F41.9 Pickup at [facility] Unchanged apixaban (Eliquis 5 mg oral [...] Milligram By Mouth Every day Pharmacy Information [facility]: [address] [place], [place] [id number] [phone] Allergies Zithromax (Unknown) Problems Ongoing - Any [...] choosing us for your care. Normal [place] [facility] Family Medicine Office/Clini c Noteon 07-15-2024 [...] spasm, # 30 tab(s), Refills(s) 0, Pharmacy: [facility], 153, cm, 07/15/24 9:24:00 EST, Height/Length Dosing, 117.8, kg, 07/15/24 9:24:00 EST, Weight Dosing methylPREDNISolone, = 1 packet(s), Oral, As Directed, as directed on package labeling, X 6 day(s), # 21 tab(s), Refills(s) 0, Pharmacy: [facility], 153, cm, 07/15/24 9:24:00 EST, Height/Length Dosing, 117.8, kg, 07/15/24 9:24:00 EST, Weight Dosing 2. Adult BMI 50.0-59.9 kg/sq m (Z68.43: Body mass index [BMI] 50.0-59.9, adult) BMI education Ordered: cyclobenzaprine, 10 mg = 1 tab(s), Oral, TID, PRN for spasm, # 30 tab(s), Refills(s) 0, Pharmacy: [facility], 153, cm, 07/15/24 9:24:00 EST, Height/Length Dosing, 117.8, kg, 07/15/24 9:24:00 EST, Weight Dosing methylPREDNISolone, = 1 packet(s), Oral, As Directed, as directed on package labeling, X 6 day(s), # 21 tab(s), Refills(s) 0, Pharmacy: [facility], 153, cm, 07/15/24 9:24:00 EST, Height/Length Dosing, 117.8, kg, 07/15/24 9:24:00 EST, Weight Dosing 3. Non-smoker (Z78.9: Other specified health status) continue not smoking Ordered: cyclobenzaprine, 10 mg = 1 tab(s), Oral, TID, PRN for spasm, # 30 tab(s), Refills(s) 0, Pharmacy: [facility], 153, cm, 07/15/24 9:24:00 EST, Height/Length Dosing, 117.8, kg, 07/15/24 9:24:00 EST, Weight Dosing methylPREDNISolone, = 1 packet(s), Oral, As Directed, as directed on package labeling, X 6 day(s), # 21 tab(s), Refills(s) 0, Pharmacy: [facility], 153, cm, 07/15/24 9:24:00 EST, Height/Length Dosing, 117.8, kg, 07/15/24 9:24:00 EST, Weight Dosing Orders: alprazolam, 0.25 mg, Oral, Daily, prn Dx F41.9, # 30 tab(s), Refills(s) 0, Pharmacy: [facility], 153, cm, 07/15/24 9:24:00 EST, Height/Length Dosing, 117.8, kg, 07/15/24 9:24:00 EST, Weight Dosing alprazolam, 0.25 mg, Oral, Daily, prn Dx F41.9, # 30 tab(s), Refills(s) 0, Pharmacy: [id number], 153, cm, 09/02/23 8:30:00 EDT, Height/Length Dosing, [...] mg Tab (more content not included)... Normal [facility] Comment on above: Result Comment: Elec tronically [...] 8:20 AM EDT With: Le Montano Where: [place] [phone]- Medications What How Much When Instructions Unchanged [...] choosing us for your care. Normal [place] [facility] Family Medicine Office/Clini c Noteon 07-11-2024 Family Medicine Office/Clinic Note Family Medicine Office/Clinic Note HPI Staff Keely is a 68 year old female presenting for 3 month follow up Weight management: Semaglutide Sleeping well:Yes, 6-8 hours Chest pain:No Tremors:No Headaches:No Heart fluttering:No Blurred Vision:No Beginning weight: 259.16 Previous weight: 270 Today's weight: 263 Questions/Concerns: doing well no concerns ER followup: Hospital: [facility] Visit date: 07/05/24 Symptoms the patient presented with: Dizzy, lightheaded, jaw pain, heart palpations Symptom onset/injury onset: 07/05/24 Current concerns: Then transferred to [facility] and had heart cath started Metoprolol and Eliquis and d/c bisoprolol/HCTZ was discharged 07/07/24 Pt states she is feeling better just really tired. Has follow up with Cardiology 08/08/24 [facility] Onset: 2 weeks ago sinus pressure, nasal drainage and post nasal drip, sinus congestion, ears popping, denies fevers History of Present Illness pt presents today for 3 month [facility] Review of Systems PHQ Score Initial Depression [...] pt recently had non-STEMI was taken to [facility] and had heart cath. will follow up [...] Bedtime, # 30 tab(s), Refills(s) 1, Pharmacy: [facility], 153, cm, 07/11/24 8:35:00 EST, Height/Length Dosing, 119.3, kg, 07/11/24 8:35:00 EST, Weight Dosing semaglutide, 0.25 mg, SubCutaneous, qWeek, # 4 EA, Refills(s) 0, Pharmacy: [facility], 153, cm, 07/11/24 8:35:00 EST, Height/Length Dosing, 119.3, kg, 07/11/24 8:35:00 EST, Weight Dosing 2. HTN - Hypertension (I10: Essential (primary) hypertension) BP at goal today Ordered: quetiapine, 25 mg = 1 tab(s), Oral, Bedtime, # 30 tab(s), Refills(s) 1, Pharmacy: [facility], 153, cm, 07/11/24 8:35:00 EST, Height/Length Dosing, 119.3, kg, 07/11/24 8:35:00 EST, Weight Dosing semaglutide, 0.25 mg, SubCutaneous, qWeek, # 4 EA, Refills(s) 0, Pharmacy: [facility], 153, cm, 07/11/24 8:35:00 EST, Height/Length [...] adult) pt has been taking semaglutide through [facility]. she recently had Non stermi and would like for me to order medication through pharmacy. not sure if they will cover it since she has another risk factor after having a [place] Ordered: quetiapine, 25 mg = 1 tab(s), Oral, Bedtime, # 30 tab(s), Refills(s) 1, Pharmacy: [facility], 153, cm, 07/11/24 8:35:00 EST, Height/Length Dosing, 119.3, kg, 07/11/24 8:35:00 EST, Weight Dosing semaglutide, 0.25 mg, SubCutaneous, qWeek, # 4 EA, Refills(s) 0, Pharmacy: [facility], 153, cm, 07/11/24 8:35:00 EST, Height/Length Dosing, 119.3, kg, 07/11/24 8:35:00 EST, Weight Dosing 6. Non-smoker (Z78.9: Other specified health status) continue not smoking Ordered: quetiapine, 25 mg = 1 tab(s), Oral, Bedtime, # 30 tab(s), Refills(s) 1, Pharmacy: [facility], 153, cm, 07/11/24 8:35:00 EST, Height/Length Dosing, 119.3, kg, 07/11/24 8:35:00 EST, Weight Dosing semaglutide, 0.25 mg, SubCutaneous, qWeek, # 4 EA, Refills(s) 0, Pharmacy: [facility], 153, cm, 07/11/24 8:35:00 EST, Height/Length Dosing, 119.3, kg, 07/11/24 8:35:00 EST, Weight Dosing Orders: bisoprolol-hydrochlorothia zide, 1 tab(s), Oral, Daily, 90 tab(s), Refill(s) 4, [facility], 153, cm, 09/02/23 8:30:00 (more content not included)... Normal [facility] Comment on above: Result Comment: Elec tronically Signed By: Le Montano\.sandra\Date and Time Signed: 07/11/24 10:07 EST B-Type Natriuretic Peptideon 07-07-2024 Natriuretic peptide B (Bld) [Mass/Vol] 110.0 pg/mL High 5-100 [facility] Comment on above: Result Comment: PERF ORMED BY: [place] [address] PATHOLOGIST CARTOGRAPHIC DRAFTER BEN MARISCAL M.D. Performed By: #### H S TROP, MG, CBC, BMP, LIPID #### [address] Basic Metabolic Panelon 06-19 Anion gap [Moles/Vol] 10.7 mmol/L Normal 6.0-15.0 [facility] Comment on above: Performed By: #### H S TROP, MG, CBC, BMP, LIPID #### [address] Calcium [Mass/Vol] 9.0 mg/dL Normal 8.6-10.3 [facility] Comment on above: Performed By: #### H S TROP, MG, CBC, BMP, LIPID #### [address] Chloride [Moles/Vol] 105 mmol/L Normal 98-107 [facility] Comment on above: Performed By: #### H S TROP, MG, CBC, BMP, LIPID #### [address] CO2 [Moles/Vol] 24.9 mmol/L Normal 21.0-31.0 [facility] Comment on above: Performed By: #### H S TROP, MG, CBC, BMP, LIPID #### [address] Creatinine [Mass/Vol] 0.86 mg/dL Normal 0.60-1.20 [facility] Comment on above: Performed By: #### H S TROP, MG, CBC, BMP, LIPID #### [address] Creatinine Clr Calc Pharmacy 74.97 Normal [facility] Comment on above: Result Comment: PERF ORMED BY: [place] [address] PATHOLOGIST CARTOGRAPHIC DRAFTER BEN MARISCAL M.D. Performed By: #### H S TROP, MG, CBC, BMP, LIPID #### [place] [address] [place] GFR/1.73 sq M.predicted MDRD (S/P/Bld) [Vol rate/Area] mL/min/{1.73_m2} Normal [facility] Comment on above: Performed By: #### H S TROP, MG, CBC, BMP, LIPID #### [address] Glucose [Mass/Vol] 116 mg/dL High 70-100 [facility] Comment on above: Result Comment: [facility] Glucose Reference Range is dependent on time and content of last meal. Glucose of more than 200 mg/dL in a nonstressed, ambulatory subject supports the diagnosis of Diabetes Mellitus. ADA recommended reference range Performed By: #### H S TROP, MG, CBC, BMP, LIPID #### [address] Potassium [Moles/Vol] 3.6 mmol/L Normal 3.5-5.1 [facility] Comment on above: Performed By: #### H S TROP, MG, CBC, BMP, LIPID #### [place] [address] [place] Sodium [Moles/Vol] 137 mmol/L Normal 136-145 [facility] Comment on above: Performed By: #### H S TROP, MG, CBC, BMP, LIPID #### [address] Urea nitrogen [Mass/Vol] 10 mg/dL Normal 7-25 [facility] Comment on above: Performed By: #### H S TROP, MG, CBC, BMP, LIPID #### [facility] [address] [place] [address] [place] Basophils Auto (Bld) [#/Vol] Ordered By: Rigoberto Alfaro on 07-07-2024 Basophils (Bld) [#/Vol] Automated basophil count 0.0-0.2 [facility] Basophils/100 WBC Auto (Bld) Ordered By: Rigoberto Alfaro on 07-07-2024 Basophils/100 WBC (Bld) Automated basophil % . [facility] Calcium [Mass/volume] in Ser um or PlasmaOrdered By: Rigoberto Alfaro on 07-07-2024 Calcium [Mass/Vol] Calcium [Mass/volume ] in Serum or Plasma 8.6-10.3 [facility] Carbon dioxide, total [Moles /volume] in Serum or PlasmaOrdered By: Rigoberto Alfaro on 07-07-2024 CO2 [Moles/Vol] Carbon dioxide, tota l [Moles/volume] in Serum or Plasma 21.0-31.0 [facility] Chloride [Moles/volume] in S edouard or PlasmaOrdered By: Rigoberto Alfaro on 07-07-2024 Chloride [Moles/Vol] Chloride [Moles/vol ume] in Serum or Plasma 98-107 [facility] Complete Blood Count Auto Di ffon 07-07-2024 Basophils (Bld) [#/Vol] 0.0 10*3/uL Normal 0.0-0.2 [facility] Comment on above: Result Comment: PERF ORMED BY: [facility] [address] [facility] [place] [address] PATHOLOGIST CARTOGRAPHIC DRAFTER BEN MARISCAL M.D. Performed By: #### H S TROP, MG, CBC, BMP, LIPID #### [facility] [address] [place] [address] [place] Basophils/100 WBC (Bld) 0.8 % Normal . [facility] Comment on above: Performed By: #### H S TROP, MG, CBC, BMP, LIPID #### [facility] [address] [place] [address] [place] Eosinophils (Bld) [#/Vol] 0.2 10*3/uL Normal 0.0-0.45 [facility] Comment on above: Performed By: #### H S TROP, MG, CBC, BMP, LIPID #### [address] Eosinophils/100 WBC (Bld) 4.8 % Normal . [facility] Comment on above: Performed By: #### H S TROP, MG, CBC, BMP, LIPID #### [address] Erythrocyte distribution width (RBC) [Ratio] 14.0 % Normal 11.9-15.3 [facility] Comment on above: Performed By: #### H S TROP, MG, CBC, BMP, LIPID #### [address] Hematocrit (Bld) [Volume fraction] 38.7 % Normal 34.0-46.4 [facility] Comment on above: Performed By: #### H S TROP, MG, CBC, BMP, LIPID #### [address] Hemoglobin (Bld) [Mass/Vol] 13.2 g/dL Normal 11.8-15.4 [facility] Comment on above: Performed By: #### H S TROP, MG, CBC, BMP, LIPID #### [address] Lymphocytes (Bld) [#/Vol] 1.5 10*3/uL Normal 1.00-4.8 [facility] Comment on above: Performed By: #### H S TROP, MG, CBC, BMP, LIPID #### [address] Lymphocytes/100 WBC (Bld) 36.1 % Normal . [facility] Comment on above: Performed By: #### H S TROP, MG, CBC, BMP, LIPID #### [address] MCH (RBC) [Entitic mass] 28.5 pg Normal 24.7-34.3 [facility] Comment on above: Performed By: #### H S TROP, MG, CBC, BMP, LIPID #### [address] MCV (RBC) [Entitic vol] 83.6 fL Normal 80-100 [facility] Comment on above: Performed By: #### H S TROP, MG, CBC, BMP, LIPID #### [address] Mean Corpuscular HGB Conc 34.1 g/dL Normal 32.0-35.0 [facility] Comment on above: Performed By: #### H S TROP, MG, CBC, BMP, LIPID #### [address] Monocytes (Bld) [#/Vol] 0.4 10*3/uL Normal 0.0-0.8 [facility] Comment on above: Performed By: #### H S TROP, MG, CBC, BMP, LIPID #### [address] Monocytes/100 WBC (Bld) 16.84 % Normal 0.00-20.00 [facility] Comment on above: Performed By: #### H S TROP, MG, CBC, BMP, LIPID #### [address] Monocytes/100 WBC (Bld) 10.4 % Normal . [facility] Comment on above: Performed By: #### H S TROP, MG, CBC, BMP, LIPID #### [address] Neutrophils (Bld) [#/Vol] 2.0 10*3/uL Normal 1.8-7.7 [facility] Comment on above: Performed By: #### H S TROP, MG, CBC, BMP, LIPID #### [address] Neutrophils/100 WBC (Bld) 47.9 % Normal . [facility] Comment on above: Performed By: #### H S TROP, MG, CBC, BMP, LIPID #### [address] NRBC% 0.3 /100{WBC} Normal 0-0.5 [facility] Comment on above: Performed By: #### H S TROP, MG, CBC, BMP, LIPID #### [address] Platelet mean volume (Bld) [Entitic vol] 7.1 fL Normal 6.3-10.7 [facility] Comment on above: Performed By: #### H S TROP, MG, CBC, BMP, LIPID #### [address] Platelets (Bld) [#/Vol] 161 10*3/uL Normal 150-450 [facility] Comment on above: Performed By: #### H S TROP, MG, CBC, BMP, LIPID #### [address] RBC (Bld) [#/Vol] 4.63 10*6/uL Normal 3.60-5.00 [facility] Comment on above: Performed By: #### H S TROP, MG, CBC, BMP, LIPID #### [address] WBC (Bld) [#/Vol] 4.1 10*3/uL Normal 3.8-11.6 [facility] Comment on above: Performed By: #### H S TROP, MG, CBC, BMP, LIPID #### [address] Creatine Kinaseon 07-07-2024 CK [Catalytic activity/Vol] 299 U/L High 30-223 [facility] Comment on above: Performed By: #### H S TROP, MG, CBC, BMP, LIPID #### [address] Creatine kinase [Enzymatic a ctivity/volume] in Serum or PlasmaOrdered By: Rigoberto Alfaro on 07-07-2024 CK [Catalytic activity/Vol] Creatine kinase [Enzymatic activity/volume] in Serum or Plasma High 30-223 [facility] Creatinine [Mass/volume] in Serum or PlasmaOrdered By: Rigoberto Alfaro on 07-07-2024 Creatinine [Mass/Vol] Creatinine [Mass/v olume] in Serum or Plasma 0.60-1.20 [facility] ECG 12 lead ECGon 07-07-2024 ECG [address] [place] [address] Electrocardiograph Report Signed Patient: Keely Chopra MR#: [id number] : 1955 Acct:[id number] Age/Sex: 68 / F ADM Date: 07/07/24 Loc: ER Room: Type: [facility] ER Attending Dr: Ordering Provider: Rigoberto Alfaro [...] sinus rhythm Confirmed by Rigoberto Alfaro DO ([id number]) on 07/07/2024 3:58:58 PM Referred By: Electronically Signed By: Rigoberto Alfaro DO Transcribed By: MUS Signed By Rigoberto Alfaro DO 1559 Normal [facility] Eosinophils Auto (Bld) [#/Vo l]Ordered By: Rigoberto Alfaro on 07-07-2024 Eosinophils (Bld) [#/Vol] Automated eosinophil count 0.0-0.45 [facility] Eosinophils/100 WBC Auto (Bl d)Ordered By: Rigoberto Alfaro on 07-07-2024 Eosinophils/100 WBC (Bld) Automated eosinophil % . [facility] Erythrocyte distribution wid th Auto (RBC) [Ratio]Ordered By: Rigoberto Alfaro on 07-07-2024 Erythrocyte distribution width (RBC) [Ratio] Erythrocyte distribution width [Ratio] by Automated count 11.9-15.3 [facility] Glucose [Mass/volume] in Ser um or PlasmaOrdered By: Rigoberto Alfaro on 07-07-2024 Glucose [Mass/Vol] Glucose [Mass/volume ] in Serum or Plasma High 70-100 [facility] Comment on above: ADA recommended refe rence rangeRandom Glucose Reference Range is dependent on time and content of last meal. Glucose of more than 200 mg/dL in a nonstressed, ambulatory subject supports the diagnosis of Diabetes Mellitus. Hematocrit Auto (Bld) [Volum e fraction]Ordered By: Rigoberto Alfaro on 07-07-2024 Hematocrit (Bld) [Volume fraction] Hematocrit [Volume Fraction] of Blood by Automated count 34.0-46.4 [facility] Hemoglobin [Mass/volume] in BloodOrdered By: Rigoberto Alfaro on 07-07-2024 Hemoglobin (Bld) [Mass/Vol] Hemoglobin [Mass/volume] in Blood 11.8-15.4 [facility] INR in Platelet poor plasma by Coagulation assayOrdered By: Rigoberto Alfaro on 07-07-2024 INR Coag (PPP) [Relative time] INR in Platelet poor plasma by Coagulation assay [facility] Comment on above: INR Therapeutic Rang e [...] erythrocytes in Blood by Automated coun 3.8-11.6 [facility] Lymphocytes Auto (Bld) [#/Vo l]Ordered By: Rigoberto Alfaro on 07-07-2024 Lymphocytes (Bld) [#/Vol] Lymphocytes [#/volume] in Blood by Automated count 1.00-4.8 [facility] Lymphocytes/100 WBC Auto (Bl d)Ordered By: Rigoberto Alfaro on 07-07-2024 Lymphocytes/100 WBC (Bld) Lymphocytes/100 leukocytes in Blood by Automated count . [facility] MCH Auto (RBC) [Entitic mass ]Ordered By: Rigoberto Alfaro on 07-07-2024 MCH (RBC) [Entitic mass] MCH [Entitic mass] by Automated count 24.7-34.3 [facility] MCHC Auto (RBC) [Mass/Vol]Or dered By: Rigoberto Alfaro on 07-07-2024 MCHC (RBC) [Mass/Vol] MCHC [Mass/volume] by Automated count 32.0-35.0 [facility] MCV Auto (RBC) [Entitic vol] Ordered By: Rigoberto Alfaro on 07-07-2024 MCV (RBC) [Entitic vol] MCV [Entitic vol ume] by Automated count 80-100 [facility] Monocyte distribution width [Entitic volume] in Blood by AutomatedOrdered By: Rigoberto Alfaro on 07-07-2024 Monocyte distribution width Auto (Bld) [Entitic vol] Monocyte distribution width [Entitic volume] in Blood by Automated 0.00-20.00 [facility] Monocytes Auto (Bld) [#/Vol] Ordered By: Rigoberto Alfaro on 07-07-2024 Monocytes (Bld) [#/Vol] Automated blood monocyte count 0.0-0.8 [facility] Monocytes/100 WBC Auto (Bld) Ordered By: Rigoberto Alfaro on 07-07-2024 Monocytes/100 WBC (Bld) Automated monocyte % . [facility] Natriuretic peptide B [Mass/ Vol]Ordered By: Rigoberto Alfaro on 07-07-2024 Natriuretic peptide B (Bld) [Mass/Vol] BNP ser/plas High 5-100 [facility] Neutrophils Auto (Bld) [#/Vo l]Ordered By: Rigoberto Alfaro on 07-07-2024 Neutrophils (Bld) [#/Vol] Neutrophils [#/volume] in Blood by Automated count 1.8-7.7 [facility] Neutrophils/100 WBC Auto (Bl d)Ordered By: Rigoberto Alfaro on 07-07-2024 Neutrophils/100 WBC (Bld) Automated neutrophil % . [facility] No Panel InformationOrdered By: Rigoberto Alfaro on 07-07-2024 Estimated GFR (CKD-EPI) > 60.0 mL/Min [facility] Creatinine Clearance (Chem 74.97 [facility] Nucleated erythrocytes [Pres ence] in Blood by Automated countOrdered By: Rigoberto Alfaro on 07-07-2024 Nucleated RBC Auto Ql (Bld) Nucleated erythrocytes [Presence] in Blood by Automated count 0-0.5 [facility] Platelet mean volume Auto (B ld) [Entitic vol]Ordered By: Rigoberto Alfaro on 07-07-2024 Platelet mean volume (Bld) [Entitic vol] Platelet mean volume [Entitic volume] in Blood by Automated count 6.3-10.7 [facility] Platelets Auto (Bld) [#/Vol] Ordered By: Rigoberto Alfaro on 07-07-2024 Platelets (Bld) [#/Vol] Platelets [#/vol ume] in Blood by Automated count 150-450 [facility] Potassium [Moles/volume] in Serum or PlasmaOrdered By: Rigoberto Alfaro on 07-07-2024 Potassium [Moles/Vol] Potassium [Moles/v olume] in Serum or Plasma 3.5-5.1 [facility] [facility] Prothrombin Time INRon 07-07 INR Coag (PPP) [Relative time] 1.0 {INR} Normal [facility] Comment on above: Result Comment: [...] heart valves: 3 - 4.5 PERFORMED BY: [address] [place] [address] PATHOLOGIST CARTOGRAPHIC DRAFTER BEN MARISCAL M.D. Performed By: #### H S TROP, MG, CBC, BMP, LIPID #### [place] [id number] [facility] PT Coag (PPP) [Time] 11.0 s Normal 9.0-12.9 [facility] Comment on above: Result Comment: A he matocrit value greater than 55% may lead to inaccurate results in coagulation testing. Patients having hematocrit values >55% require a special collection tube for coagulation studies. Please contact the laboratory at [phone] for redraw instructions. Performed By: #### H S TROP, MG, CBC, BMP, LIPID #### [facility] [address] Prothrombin time (PT)Ordered By: Rigoberto Alfaro on 07-07-2024 PT Coag (PPP) [Time] Prothrombin time (PT) 9.0- 12.9 [facility] Comment on above: A hematocrit value g reater than 55% may lead to inaccurate results in coagulation testing. Patients having hematocrit values >55% require a special collection tube for coagulation studies. Please contact the laboratory at [phone] for redraw instructions. RBC Auto (Bld) [#/Vol]Ordere d By: Rigoberto Alfaro on 07-07-2024 RBC (Bld) [#/Vol] Erythrocytes [#/volu me] in Blood by Automated count 3.60-5.00 [facility] Serum or plasma anion gap de terminationOrdered By: Rigoberto Alfaro on 07-07-2024 Anion gap [Moles/Vol] Serum or plasma an ion gap determination 6.0-15.0 [facility] Sodium [Moles/volume] in Ser um or PlasmaOrdered By: Rigoberto Alfaro on 07-07-2024 Sodium [Moles/Vol] Sodium [Moles/volume ] in Serum or Plasma 136-145 [facility] Troponin I High Sensitivityo n 07-07-2024 Troponin I High Sensitivity 146 Off scale high 0-15 [facility] Comment on above: Result Comment: Crit ical Result : Called to and read back by: KEM DUVAL at: 07/07/2024 10:24:21 by:JOSSY The Troponin units of report have been changed to meet the Chest Pain Accreditation requirement, element EC5.M1l2. Troponin units are changed from pg/ml to ng/L. Also, the decimal is removed and results are in whole numbers. PERFORMED BY: [address] [address] PATHOLOGIST CARTOGRAPHIC DRAFTER BEN MARISCAL M.D. Performed By: #### H S TROP, MG, CBC, BMP, LIPID #### [facility] [address] [place] [address] [facility] Troponin I High Sensitivity 158 Off scale high 0-15 [facility] Comment on above: Result Comment: Crit ical Result : Called to and read back by: KEM DUVAL at: 07/07/2024 08:00:55 by:JOSSY The Troponin units of report have been changed to meet the Chest Pain Accreditation requirement, element EC5.M1l2. Troponin units are changed from pg/ml to ng/L. Also, the decimal is removed and results are in whole numbers. PERFORMED BY: [address] [address] PATHOLOGIST CARTOGRAPHIC DRAFTER BEN MARISCAL M.D. Performed By: #### H S TROP, MG, CBC, BMP, LIPID #### [facility] [address] [place] [address] [facility] Troponin I.cardiac [Mass/vol ume] in Serum or Plasma by Detection limit <= 0.01 ng/Ordered By: Rigoberto Alfaro on 07-07-2024 Troponin I.cardiac DL <= 0.01 ng/mL [Mass/Vol] Troponin I.cardiac [Mass/volume] in Serum or Plasma by Detection limit <= 0.01 ng/ Critically high 0-15 [facility] Comment on above: Critical Result : Ca [...] nitrogen [Mass/volume] in Serum or Plasma 7-25 [facility] WBC Auto (Bld) [#/Vol]Ordere d By: Rigoberto Alfaro on 07-07-2024 WBC (Bld) [#/Vol] Leukocytes [#/volume ] in Blood by Automated count 3.8-11.6 [facility] X-ray reportOrdered By: Rigoberto Lane on 07-07-[address] [facility] Main [place] [id number] XRay Report Signed Patient: Keely Chopra MR#: [id number] : 1955 Acct:[id number] Age/Sex: 68 / F ADM Date: 5 Loc: ER Room: Type: [facility] ER Attending Dr: Copies to: Rigoberto Alfaro [...] Shukri Lane M.D.07/07/2024 8:15 AM Dictation Location: [place] [address] Transcribed By: [facility] 07/07/24 0815 Dictated By: Shukri Lane DO 07/07/24 0815 Signed By: 07/07/24 0815 [facility] XR chest 2V*on 07-07-2024 XR chest 2V* [facility] Main [address] [address] XRay Report Signed Patient: Keely Chopra MR#: [id number] : 1955 Acct:[id number] Age/Sex: 68 / F ADM Date: 07/07/24 Loc: ER Room: Type: [facility] ER Attending Dr: Copies to: Rigoberto Alfaro [...] Shukri Lane M.D.07/07/2024 8:15 AM Dictation Location: [facility]- Transcribed By: [facility] 07/07/24814 Dictated By: Shukri Lane DO 07/07/24814 Signed By: 07/07/24814 Normal [facility] Anti-Xa UF Heparinon 025 Anti-Xa UF Heparin 0.19 [IU]/mL Low 0.30-0.70 [facility] Comment on above: Result Comment: Use the aPTT protocol when triglycerides are > 800 mg/dL, total bilirubin is > 20 mg/dL and/or patient has received a DOAC, Fondaparinux or LMWH within 72 hours AND baseline anti-Xa level is > 0.7 units/mL PERFORMED BY: [place] [address] PATHOLOGIST CARTOGRAPHIC DRAFTER BEN MARISCAL M.D. Performed By: #### H S TROP, MG, CBC, BMP, LIPID #### [facility] [address] [place] [address] Anti-Xa UF Heparin 0.31 [IU]/mL Normal 0.30-0.70 [facility] Comment on above: Result Comment: Use the aPTT protocol when triglycerides are > 800 mg/dL, total bilirubin is > 20 mg/dL and/or patient has received a DOAC, Fondaparinux or LMWH within 72 hours AND baseline anti-Xa level is > 0.7 units/mL PERFORMED BY: [place] [address] PATHOLOGIST CARTOGRAPHIC DRAFTER BEN MARISCAL M.D. Performed By: #### H S TROP, MG, CBC, BMP, LIPID #### [address] Basic Metabolic Panelon 06-18 Anion gap [Moles/Vol] 10.5 mmol/L Normal 6.0-15.0 [facility] Comment on above: Performed By: #### H S TROP, MG, CBC, BMP, LIPID #### [address] Calcium [Mass/Vol] 9.3 mg/dL Normal 8.6-10.3 [facility] Comment on above: Performed By: #### H S TROP, MG, CBC, BMP, LIPID #### [address] Chloride [Moles/Vol] 103 mmol/L Normal 98-107 [facility] Comment on above: Performed By: #### H S TROP, MG, CBC, BMP, LIPID #### [address] CO2 [Moles/Vol] 26.5 mmol/L Normal 21.0-31.0 [facility] Comment on above: Performed By: #### H S TROP, MG, CBC, BMP, LIPID #### [address] Creatinine [Mass/Vol] 0.81 mg/dL Normal 0.60-1.20 [facility] Comment on above: Performed By: #### H S TROP, MG, CBC, BMP, LIPID #### [place] [address] [place] Creatinine Clr Calc Pharmacy 79.48 Normal [facility] Comment on above: Performed By: #### H S TROP, MG, CBC, BMP, LIPID #### [place] [address] [place] GFR/1.73 sq M.predicted MDRD (S/P/Bld) [Vol rate/Area] mL/min/{1.73_m2} Normal [facility] Comment on above: Performed By: #### H S TROP, MG, CBC, BMP, LIPID #### [facility] [address] Glucose [Mass/Vol] 98 mg/dL Normal 70-100 [facility] Comment on above: Result Comment: [facility] Glucose Reference Range is dependent on time and content of last meal. Glucose of more than 200 mg/dL in a nonstressed, ambulatory subject supports the diagnosis of Diabetes Mellitus. ADA recommended reference range Performed By: #### H S TROP, MG, CBC, BMP, LIPID #### [facility] [address] Potassium [Moles/Vol] 4.0 mmol/L Normal 3.5-5.1 [facility] Comment on above: Performed By: #### H S TROP, MG, CBC, BMP, LIPID #### [facility] [address] Sodium [Moles/Vol] 136 mmol/L Normal 136-145 [facility] Comment on above: Performed By: #### H S TROP, MG, CBC, BMP, LIPID #### [facility] [address] Urea nitrogen [Mass/Vol] 10 mg/dL Normal 7-25 [facility] Comment on above: Performed By: #### H S TROP, MG, CBC, BMP, LIPID #### [address] Basophils Auto (Bld) [#/Vol] Ordered By: Akua Ellsworth on 07-06-2024 Basophils (Bld) [#/Vol] Automated basophil count 0.0-0.2 [facility] Basophils/100 WBC Auto (Bld) Ordered By: Akua Ellsworth on 07-06-2024 Basophils/100 WBC (Bld) Automated basophil % . [facility] Calcium [Mass/volume] in Ser um or PlasmaOrdered By: Akua Ellsworth on 07-06-2024 Calcium [Mass/Vol] Calcium [Mass/volume ] in Serum or Plasma 8.6-10.3 [facility] Carbon dioxide, total [Moles /volume] in Serum or PlasmaOrdered By: Akua Ellsworth on 07-06-2024 CO2 [Moles/Vol] Carbon dioxide, tota l [Moles/volume] in Serum or Plasma 21.0-31.0 [facility] Chloride [Moles/volume] in S edouard or PlasmaOrdered By: Akua Ellsworth on 07-06-2024 Chloride [Moles/Vol] Chloride [Moles/vol ume] in Serum or Plasma 98-107 [facility] Cholesterol [Mass/volume] in Serum or PlasmaOrdered By: Akua Ellsworth on 07-06-2024 Cholesterol [Mass/Vol] Cholesterol [Mass /volume] in Serum or Plasma 140-200 [facility] Comment on above: Chol less than 200 m g/dl low riskChol 201-239 mg/dl borderline riskChol 240 mg/dl and greater high risk Cholesterol in HDL [Mass/vol ume] in Serum or PlasmaOrdered By: Akua Ellsworth on 07-06-2024 Cholesterol in HDL [Mass/Vol] Serum or plasma high density lipoprotein (HDL) cholesterol measurement 23-92 [facility] Comment on above: HDL CHOL ATP-III CLA SSIFICATION Cardiovascular RiskHDL > or equal to 60 mg/dL LOWHDL < 40 mg/dL HIGH Cholesterol in LDL Calc [Mas s/Vol]Ordered By: Akua Ellsworth on 07-06-2024 Cholesterol in LDL [Mass/Vol] Cholesterol in LDL [Mass/volume] in Serum or Plasma by calculation High 0-100 [facility] Comment on above: LDL ATP III CLASSIFI CATIONLDL less than 100 mg/dL OptimalLDL 100-129 mg/dL Near or above optimalLDL 130-159 mg/dL Borderline highLDL 160-189 mg/dL HighLDL greater than 189 mg/dL Very high Cholesterol in VLDL Calc [Ma ss/Vol]Ordered By: Akua Ellsworth on 07-06-2024 Cholesterol in VLDL [Mass/Vol] Cholesterol in VLDL [Mass/volume] in Serum or Plasma by calculation [facility] Complete Blood Count Auto Di ffon 07-06-2024 Basophils (Bld) [#/Vol] 0.0 10*3/uL Normal 0.0-0.2 [facility] Comment on above: Result Comment: PERF ORMED BY: [place] [address] PATHOLOGIST CARTOGRAPHIC DRAFTER BEN MARISCAL M.D. Performed By: #### H S TROP, MG, CBC, BMP, LIPID #### [address] Basophils/100 WBC (Bld) 0.5 % Normal . [facility] Comment on above: Performed By: #### H S TROP, MG, CBC, BMP, LIPID #### [address] Eosinophils (Bld) [#/Vol] 0.1 10*3/uL Normal 0.0-0.45 [facility] Comment on above: Performed By: #### H S TROP, MG, CBC, BMP, LIPID #### [address] Eosinophils/100 WBC (Bld) 1.9 % Normal . [facility] Comment on above: Performed By: #### H S TROP, MG, CBC, BMP, LIPID #### [address] Erythrocyte distribution width (RBC) [Ratio] 13.9 % Normal 11.9-15.3 [facility] Comment on above: Performed By: #### H S TROP, MG, CBC, BMP, LIPID #### [address] Hematocrit (Bld) [Volume fraction] 36.8 % Normal 34.0-46.4 [facility] Comment on above: Performed By: #### H S TROP, MG, CBC, BMP, LIPID #### [address] Hemoglobin (Bld) [Mass/Vol] 12.9 g/dL Normal 11.8-15.4 [facility] Comment on above: Performed By: #### H S TROP, MG, CBC, BMP, LIPID #### [address] Lymphocytes (Bld) [#/Vol] 1.9 10*3/uL Normal 1.00-4.8 [facility] Comment on above: Performed By: #### H S TROP, MG, CBC, BMP, LIPID #### [address] Lymphocytes/100 WBC (Bld) 30.6 % Normal . [facility] Comment on above: Performed By: #### H S TROP, MG, CBC, BMP, LIPID #### [address] MCH (RBC) [Entitic mass] 28.9 pg Normal 24.7-34.3 [facility] Comment on above: Performed By: #### H S TROP, MG, CBC, BMP, LIPID #### [address] MCV (RBC) [Entitic vol] 82.4 fL Normal 80-100 [facility] Comment on above: Performed By: #### H S TROP, MG, CBC, BMP, LIPID #### [address] Mean Corpuscular HGB Conc 35.0 g/dL Normal 32.0-35.0 [facility] Comment on above: Performed By: #### H S TROP, MG, CBC, BMP, LIPID #### [address] Monocytes (Bld) [#/Vol] 0.5 10*3/uL Normal 0.0-0.8 [facility] Comment on above: Performed By: #### H S TROP, MG, CBC, BMP, LIPID #### [address] Monocytes/100 WBC (Bld) 8.2 % Normal . [facility] Comment on above: Performed By: #### H S TROP, MG, CBC, BMP, LIPID #### [address] Neutrophils (Bld) [#/Vol] 3.6 10*3/uL Normal 1.8-7.7 [facility] Comment on above: Performed By: #### H S TROP, MG, CBC, BMP, LIPID #### [address] Neutrophils/100 WBC (Bld) 58.8 % Normal . [facility] Comment on above: Performed By: #### H S TROP, MG, CBC, BMP, LIPID #### [address] NRBC% 0.1 /100{WBC} Normal 0-0.5 [facility] Comment on above: Performed By: #### H S TROP, MG, CBC, BMP, LIPID #### [address] Platelet mean volume (Bld) [Entitic vol] 7.4 fL Normal 6.3-10.7 [facility] Comment on above: Performed By: #### H S TROP, MG, CBC, BMP, LIPID #### [address] Platelets (Bld) [#/Vol] 168 10*3/uL Normal 150-450 [facility] Comment on above: Performed By: #### H S TROP, MG, CBC, BMP, LIPID #### [address] RBC (Bld) [#/Vol] 4.47 10*6/uL Normal 3.60-5.00 [facility] Comment on above: Performed By: #### H S TROP, MG, CBC, BMP, LIPID #### [address] WBC (Bld) [#/Vol] 6.1 10*3/uL Normal 3.8-11.6 [facility] Comment on above: Performed By: #### H S TROP, MG, CBC, BMP, LIPID #### [address] Creatinine [Mass/volume] in Serum or PlasmaOrdered By: Akua Ellsworth on 07-06-2024 Creatinine [Mass/Vol] Creatinine [Mass/v olume] in Serum or Plasma 0.60-1.20 [facility] ECG 12 lead ECGon 07-06-2024 [address] [facility] Main [address] [address] Electrocardiograph Report Signed Patient: Keely Chopra MR#: [id number] : 1955 Acct:[id number] Age/Sex: 68 / F ADM Date: 07/05/24 Loc: 3T Room: [address] [place] [address] Type: ADM IN Attending Dr: Christina Julien [...] in Inferior leads Confirmed by Angel Gutierrez ([id number]) on 07/06/2024 2:54:36 PM Referred By: Electronically Signed By: Angel Gutierrez Transcribed By: MUS Signed By Angel Gutierrez MD 07/06/24 1454 Normal [facility] ECH echo transthoracicon ECH echo transthoracic [facility] Main [address] [address] Echocardiogram Signed Patient: Keely Chopra MR#: [id number] : 1955 Acct:[id number] Age/Sex: 68 / F ADM Date: 07/05/24 Loc: 3T Room: [address] [place] [address] Type: ADM IN Attending Dr: Christina Julien [...] % Transcribed By: FRANTZ Performed At: 07/06/24 0928 Signed By: Angel Gutierrez MD 07/06/24 1440 Normal [facility] Eosinophils Auto (Bld) [#/Vo l]Ordered By: Akua Ellsworth on 07-06-2024 Eosinophils (Bld) [#/Vol] Automated eosinophil count 0.0-0.45 [facility] Eosinophils/100 WBC Auto (Bl d)Ordered By: Akua Ellsworth on 07-06-2024 Eosinophils/100 WBC (Bld) Automated eosinophil % . [facility] Erythrocyte distribution wid th Auto (RBC) [Ratio]Ordered By: Akua Ellsworth on 07-06-2024 Erythrocyte distribution width (RBC) [Ratio] Erythrocyte distribution width [Ratio] by Automated count 11.9-15.3 [facility] Glucose [Mass/volume] in Ser um or PlasmaOrdered By: Akua Ellsworth on 07-06-2024 Glucose [Mass/Vol] Glucose [Mass/volume ] in Serum or Plasma 70-100 [facility] Comment on above: ADA recommended refe rence rangeRandom Glucose Reference Range is dependent on time and content of last meal. Glucose of more than 200 mg/dL in a nonstressed, ambulatory subject supports the diagnosis of Diabetes Mellitus. Hematocrit Auto (Bld) [Volum e fraction]Ordered By: Akua Ellsworth on 07-06-2024 Hematocrit (Bld) [Volume fraction] Hematocrit [Volume Fraction] of Blood by Automated count 34.0-46.4 [facility] Hemoglobin [Mass/volume] in BloodOrdered By: Akua Ellsworth on 07-06-2024 Hemoglobin (Bld) [Mass/Vol] Hemoglobin [Mass/volume] in Blood 11.8-15.4 [facility] Heparin anti-Xa unfractionat edOrdered By: Akua Ellsworth on 07-06-2024 Heparin unfractionated Chromogenic method Qn (PPP) Heparin anti-Xa unfractionated Low 0.30-0.70 [facility] Comment on above: Use the aPTT protoco [...] erythrocytes in Blood by Automated coun 3.8-11.6 [facility] Lipid Panelon 07-06-2024 Cholesterol [Mass/Vol] 196 mg/dL Normal 140-200 [facility] Comment on above: Result Comment: Chol less than 200 mg/dl low risk Chol 201-239 mg/dl borderline risk Chol 240 mg/dl and greater high risk Performed By: #### H S TROP, MG, CBC, BMP, LIPID #### [facility] [address] Cholesterol in HDL [Mass/Vol] 42 mg/dL Normal 23-92 [facility] Comment on above: Result Comment: HDL CHOL ATP-III CLASSIFICATION Cardiovascular Risk HDL > or equal to 60 mg/dL LOW HDL < 40 mg/dL HIGH Performed By: #### H S TROP, MG, CBC, BMP, LIPID #### [facility] [address] Cholesterol.total/Awilda sterol in HDL [Mass ratio] 4.7 {ratio} Normal <5.0 [facility] Comment on above: Result Comment: PERF ORMED BY: [place] [address] PATHOLOGIST CARTOGRAPHIC DRAFTER BEN MARISCAL M.D. Performed By: #### H S TROP, MG, CBC, BMP, LIPID #### [address] LDL Cholesterol,Calculated 129 mg/dL High 0-100 [facility] Comment on above: Result Comment: LDL ATP III CLASSIFICATION LDL less than 100 mg/dL Optimal LDL 100-129 mg/dL Near or above optimal LDL 130-159 mg/dL Borderline high LDL 160-189 mg/dL High LDL greater than 189 mg/dL Very high Performed By: #### H S TROP, MG, CBC, BMP, LIPID #### [facility] [address] Triglyceride w/Reflex 126 mg/dL Normal 0-149 [facility] Comment on above: Result Comment: TRIG ATP III CLASSIFICATION TRIG less than 150 mg/dL Normal TRIG 150-199 mg/dL Borderline high TRIG 200-500 mg/dL High TRIG greater than 500 mg/dL Very high Standard traceable to the Center for Disease Conrtrol and Prevention (CDC) test method. Performed By: #### H S TROP, MG, CBC, BMP, LIPID #### [facility] [address] VLDL CHOLESTEROL 25 mg/dL Normal [facility] Comment on above: Performed By: #### H S TROP, MG, CBC, BMP, LIPID #### [facility] [address] Lymphocytes Auto (Bld) [#/Vo l]Ordered By: Akua Ellsworth on 07-06-2024 Lymphocytes (Bld) [#/Vol] Lymphocytes [#/volume] in Blood by Automated count 1.00-4.8 [facility] Lymphocytes/100 WBC Auto (Bl d)Ordered By: Akua Ellsworth on 07-06-2024 Lymphocytes/100 WBC (Bld) Lymphocytes/100 leukocytes in Blood by Automated count . [facility] MCH Auto (RBC) [Entitic mass ]Ordered By: Akua Ellsworth on 07-06-2024 MCH (RBC) [Entitic mass] MCH [Entitic mass] by Automated count 24.7-34.3 [facility] MCHC Auto (RBC) [Mass/Vol]Or dered By: Akua Ellsworth on 07-06-2024 MCHC (RBC) [Mass/Vol] MCHC [Mass/volume] by Automated count 32.0-35.0 [facility] MCV Auto (RBC) [Entitic vol] Ordered By: Akua Ellsworth on 07-06-2024 MCV (RBC) [Entitic vol] MCV [Entitic vol ume] by Automated count 80-100 [facility] Magnesiumon 07-06-2024 Magnesium [Mass/Vol] 1.9 mg/dL Normal 1.9-2.7 [facility] Comment on above: Performed By: #### H S TROP, MG, CBC, BMP, LIPID #### [facility] [address] Magnesium [Mass/volume] in S edouard or PlasmaOrdered By: Akua Ellsworth on 07-06-2024 Magnesium [Mass/Vol] Magnesium [Mass/vol ume] in Serum or Plasma 1.9-2.7 [facility] Monocytes Auto (Bld) [#/Vol] Ordered By: Akua Ellsworth on 07-06-2024 Monocytes (Bld) [#/Vol] Automated blood monocyte count 0.0-0.8 [facility] Monocytes/100 WBC Auto (Bld) Ordered By: Akua Ellsworth on 07-06-2024 Monocytes/100 WBC (Bld) Automated monocyte % . [facility] Neutrophils Auto (Bld) [#/Vo l]Ordered By: Akua Ellsworth on 07-06-2024 Neutrophils (Bld) [#/Vol] Neutrophils [#/volume] in Blood by Automated count 1.8-7.7 [facility] Neutrophils/100 WBC Auto (Bl d)Ordered By: Akua Ellsworth on 07-06-2024 Neutrophils/100 WBC (Bld) Automated neutrophil % . [facility] No Panel InformationOrdered By: Akua Ellsworth on 07-06-2024 Estimated GFR (CKD-EPI) > 60.0 mL/Min [facility] Creatinine Clearance (Chem 79.48 [facility] Nucleated erythrocytes [Pres ence] in Blood by Automated countOrdered By: Akua Ellsworth on 07-06-2024 Nucleated RBC Auto Ql (Bld) Nucleated erythrocytes [Presence] in Blood by Automated count 0-0.5 [facility] Platelet mean volume Auto (B ld) [Entitic vol]Ordered By: Akua Ellsworth on 07-06-2024 Platelet mean volume (Bld) [Entitic vol] Platelet mean volume [Entitic volume] in Blood by Automated count 6.3-10.7 [facility] Platelets Auto (Bld) [#/Vol] Ordered By: Akua Ellsworth on 07-06-2024 Platelets (Bld) [#/Vol] Platelets [#/vol ume] in Blood by Automated count 150-450 [facility] Potassium [Moles/volume] in Serum or PlasmaOrdered By: Akua Ellsworth on 07-06-2024 Potassium [Moles/Vol] Potassium [Moles/v olume] in Serum or Plasma 3.5-5.1 [facility] RBC Auto (Bld) [#/Vol]Ordere d By: Akua Ellsworth on 07-06-2024 RBC (Bld) [#/Vol] Erythrocytes [#/volu me] in Blood by Automated count 3.60-5.00 [facility] Serum or plasma anion gap de terminationOrdered By: Akua Ellsworth on 07-06-2024 Anion gap [Moles/Vol] Serum or plasma an ion gap determination 6.0-15.0 [facility] Serum or plasma total choles terol/high density lipoprotein (HDL) cholesterol mass ratOrdered By: Akua Ellsworth on 07-06-2024 Cholesterol.total/Awilda sterol in HDL [Mass ratio] Serum or plasma total cholesterol/high density lipoprotein (HDL) cholesterol mass rat <5.0 [facility] Sodium [Moles/volume] in Ser um or PlasmaOrdered By: Akua Ellsworth on 07-06-2024 Sodium [Moles/Vol] Sodium [Moles/volume ] in Serum or Plasma 136-145 [facility] Triglyceride [Mass/volume] i n Serum or PlasmaOrdered By: Akua Ellsworth on 07-06-2024 Triglyceride [Mass/Vol] Triglyceride [Ma ss/volume] in Serum or Plasma 0-149 [facility] Comment on above: TRIG ATP III CLASSIF ICATIONTRIG less than 150 mg/dL NormalTRIG 150-199 mg/dL Borderline highTRIG 200-500 mg/dL High TRIG greater than 500 mg/dL Very highStandard traceable to the Center for Disease Conrtrol and Prevention (CDC) test method. Troponin I High Sensitivityo n 07-06-2024 Troponin I High Sensitivity 308 Off scale high 0-15 [facility] Comment on above: Result Comment: Crit ical Result : Called to and read back by: SILVER GRACIA at: 07/06/2024 11:31:26 by:JOSSY The Troponin units of report have been changed to meet the Chest Pain Accreditation requirement, element EC5.M1l2. Troponin units are changed from pg/ml to ng/L. Also, the decimal is removed and results are in whole numbers. PERFORMED BY: [place] [address] PATHOLOGIST CARTOGRAPHIC DRAFTER BEN MARISCAL M.D. Performed By: #### H S TROP, MG, CBC, BMP, LIPID #### [address] Troponin I High Sensitivity 382 Off scale high 0-15 [facility] Comment on above: Result Comment: Crit ical Result : Called to and read back by: AKUA MCINTOSH at: 07/06/2024 08:28:04 by:[id number] The Troponin units of report have been changed to meet the Chest Pain Accreditation requirement, element EC5.M1l2. Troponin units are changed from pg/ml to ng/L. Also, the decimal is removed and results are in whole numbers. PERFORMED BY: [place] [address] PATHOLOGIST CARTOGRAPHIC DRAFTER BEN MARISCAL M.D. Performed By: #### H S TROP, MG, CBC, BMP, LIPID #### [address] Troponin I.cardiac [Mass/vol ume] in Serum or Plasma by Detection limit <= 0.01 ng/Ordered By: Emerald Baker on 07-06-2024 Troponin I.cardiac DL <= 0.01 ng/mL [Mass/Vol] Troponin I.cardiac [Mass/volume] in Serum or Plasma by Detection limit <= 0.01 ng/ Critically high 0-15 [facility] Comment on above: Critical Result : Ca [...] nitrogen [Mass/volume] in Serum or Plasma 7- [facility] WBC Auto (Bld) [#/Vol]Ordere d By: Akua Ellsworth on 07-06-2024 WBC (Bld) [#/Vol] Leukocytes [#/volume ] in Blood by Automated count 3.8-11.6 [facility] Anti-Xa UF Heparinon 025 Anti-Xa UF Heparin 0.04 [IU]/mL Low 0.30-0.70 [facility] Comment on above: Result Comment: Use the aPTT protocol when triglycerides are > 800 mg/dL, total bilirubin is > 20 mg/dL and/or patient has received a DOAC, Fondaparinux or LMWH within 72 hours AND baseline anti-Xa level is > 0.7 units/mL PERFORMED BY: [place] [address] PATHOLOGIST CARTOGRAPHIC DRAFTER BEN MARISCAL M.D. Performed By: #### H S TROP, MG, CBC, BMP, LIPID #### [address] ECG 12 lead ECGon 07-05-20[address] [facility] [place] [address] [place] [address] Electrocardiograph Report Signed Patient: Keely Chopra MR#: [id number] : 1955 Acct:[id number] Age/Sex: 68 / F ADM Date: 07/05/24 Loc: Room: [address] [place] [address] Type: ADM IN Attending Dr: Christina Julien [...] previous ECGs available Confirmed by Angel Gutierrez ([id number]) on 07/06/2024 2:54:30 PM Referred By: Electronically Signed By: Angel Gutierrez Transcribed By: MUS Signed By Angel Gutierrez MD 07/06/24 1096 Normal [facility] INR in Platelet poor plasma by Coagulation assayOrdered By: Akua Ellsworth on 07-05-2024 INR Coag (PPP) [Relative time] INR in Platelet poor plasma by Coagulation assay [facility] Comment on above: INR Therapeutic Rang e [...] [Time] 33.7 s Normal 25.1-36.5 [facility] Comment on above: Result Comment: A he matocrit value greater than 55% may lead to inaccurate results in coagulation testing. Patients having hematocrit values >55% require a special collection tube for coagulation studies. Please contact the laboratory at [phone] for redraw instructions. Performed By: #### H S TROP, MG, CBC, BMP, LIPID #### [place] [id number] [facility] Prothrombin Time INRon 07-05 INR Coag (PPP) [Relative time] 1.0 {INR} Normal [facility] Comment on above: Result Comment: [...] S TROP, MG, CBC, BMP, LIPID #### [place] [id number] [facility] PT Coag (PPP) [Time] 11.0 s Normal 9.0-12.9 [facility] Comment on above: Result Comment: A he matocrit value greater than 55% may lead to inaccurate results in coagulation testing. Patients having hematocrit values >55% require a special collection tube for coagulation studies. Please contact the laboratory at [phone] for redraw instructions. Performed By: #### H S TROP, MG, CBC, BMP, LIPID #### [address] [address] [facility] Prothrombin time (PT)Ordered By: Akua Ellsworth on 07-05-2024 PT Coag (PPP) [Time] Prothrombin time (PT) 9.0- 12.9 [facility] Comment on above: A hematocrit value g reater than 55% may lead to inaccurate results in coagulation testing. Patients having hematocrit values >55% require a special collection tube for coagulation studies. Please contact the laboratory at [phone] for redraw instructions. Troponin I High Sensitivityo n 07-05-2024 Troponin I High Sensitivity 422 Off scale high 0-15 [facility] Comment on above: Result Comment: Crit ical Result : Called to and read back by: NAHID CHANDRA at: 07/06/2024 01:10:46 by: The Troponin units of report have been changed to meet the Chest Pain Accreditation requirement, element EC5.M1l2. Troponin units are changed from pg/ml to ng/L. Also, the decimal is removed and results are in whole numbers. PERFORMED BY: [place] [phone] PATHOLOGIST CARTOGRAPHIC DRAFTER BEN MARISCAL M.D. Performed By: #### H S TROP, MG, CBC, BMP, LIPID #### [address] aPTT in Platelet poor plasma by Coagulation assayOrdered By: Akua Ellsworth on 07-05-2024 aPTT Coag (PPP) [Time] Activated partial thromboplastin time (aPTT) in platelet poor plasma by coagulation a 25.1-36.5 [facility] Comment on above: A hematocrit value g reater than 55% may lead to inaccurate results in coagulation testing. Patients having hematocrit values >55% require a special collection tube for coagulation studies. Please contact the laboratory at [phone] for redraw instructions. Ambulatory Visit Summaryon 1 [...] 8:20 AM EST With: Le Montano Where: [place] [id number]- Medications What How Much When Instructions Unchanged [...] choosing us for your care. Normal [place] [facility] Office/Clini c Noteon 04-11-2024 [...] for 7 day(s), 14 tab(s), Refill(s) 0, [employer] #72, 153, cm, 04/11/24 8:35:00 EST, Height/Length [...] virus vaccine, inactivated 02/25/2022 Recorded SARS-CoV-2 (COVID-19) mRNAMUL.ORD![id number] 02/25/2022 Recorded SARSCoV2 mRNA(aoedrryus-ijgd-enegnu ) vac 10/08/2021 Recorded influenza virus vaccine, inactivated 05/20/2021 Recorded SARS-CoV-2 (COVID-19) mRNA BNT-162b2 vax 02/14/2021 Recorded SARS-CoV-2 (COVID-19) mRNA BNT-162b2 vax 08/04/2020 Recorded SARS-CoV-2 (COVID-19) mRNA BNT-162b2 vax 07/14/2020 Recorded pneumococcal 13-valent vaccine 03/14/2020 Recorded influenza virus vaccine, inactivated 03/14/2020 Recorded zoster vaccine, inactivated 06/23/2019 Recorded influenza virus vaccine, inactivated 05/31/2019 Recorded zoster vaccine, inactivated 03/28/2019 Recorded Normal [place] [facility] Comment on above: Result Comment: Elec [...] yes Amount of lidocaine used: 0.3 cc [facility] Type of biopsy: [place] ential Informed consent: [...] yes Amount of lidocaine used: 0.5 cc [facility] Office/Clini c Noteon 09-02-2023 Family [...] dose to 1.8 will send order to [facility]. RTC 3 months. will check HGBA1C [...] virus vaccine, inactivated 02/25/2022 Recorded SARS-CoV-2 (COVID-19) mRNAMUL.[id number] 02/25/2022 Recorded SARSCoV2 mRNA(byhuunssb-qdoe-usbxqu ) vac 10/08/2021 Recorded influenza virus vaccine, inactivated 05/20/2021 Recorded SARS-CoV-2 (COVID-19) mRNA BNT-162b2 vax 02/14/2021 Recorded SARS-CoV-2 (COVID-19) mRNA BNT-162b2 vax 08/04/2020 Recorded SARS-CoV-2 (COVID-19) mRNA BNT-162b2 vax 07/14/2020 Recorded pneumococcal 13-valent vaccine 03/14/2020 Recorded influenza virus vaccine, inactivated 03/14/2020 Recorded zoster vaccine, inactivated 06/23/2019 Recorded influenza virus vaccine, inactivated 05/31/2019 Recorded zoster vaccine, inactivated 03/28/2019 Recorded Normal [facility] Comment on above: Result Comment: Elec tronically Signed By: [place]\.br\Date and Time Signed: 09/02/23 08:43 EDT Medication Consenton 024 Medication Consent [id number]#1.00TIFF [facility] Retail - Clinical Noteon Retail - Clinical Note [id number]#1.00TIFF [facility] CBC AUTO DIFFon 05-12-2022 BASO # 0.0 103/ul Normal 0.0-0.1 [facility] Comment on above: Performed By: #### C BC #### [facility] [address] [place] [address] [address] Nuha Marinelli Basophils/100 WBC (Bld) 0.5 % Normal 0.2-2.0 [facility] Comment on above: Performed By: #### C BC #### [facility] [address] [place] [address] [address] Nuha Marinelli EO # 0.2 103/ul Normal 0.0-0.7 [facility] Comment on above: Performed By: #### C BC #### [facility] [address] [place] [address] Dr. Nuha Marinelli Eosinophils/100 WBC (Bld) 3.3 % Normal 0.9-7.0 [facility] Comment on above: Performed By: #### C BC #### [facility] [address] [place] [address] Dr. Nuha Marinelli Erythrocyte distribution width (RBC) [Ratio] 13.6 % Normal 11.0-15.0 [facility] Comment on above: Performed By: #### C BC #### [facility] [address] [place] [address] Dr. Nuha Marinelli Hematocrit (Bld) [Volume fraction] 41.0 % Normal 36.0-48.0 [facility] Comment on above: Performed By: #### C BC #### [facility] [address] [place] [address] Dr. Nuha Marinelli Hemoglobin (Bld) [Mass/Vol] 13.6 g/dL Normal 12.0-16.0 [facility] Comment on above: Performed By: #### C BC #### [facility] [address] [place] [address] Dr. Nuha Marinelli IG # 0.03 10e3/ul Normal 0.00-0.03 [facility] Comment on above: Performed By: #### C BC #### [facility] [address] [place] [address] Dr. Nuha Marinelli IG % 0.4 % Normal 0.0-0.5 [facility] Comment on above: Performed By: #### C BC #### [facility] [address] [place] [address] Dr. Nuha Marinelli LYMPH # 2.3 103/ul Normal 1.2-3.8 [facility] Comment on above: Performed By: #### C BC #### [facility] [address] [place] [address] Dr. Nuha Marinelli Lymphocytes/100 WBC (Bld) 30.7 % Normal 20.5-60.0 [facility] Comment on above: Performed By: #### C BC #### [facility] [address] [place] [address] Dr. Nuha Marinelli MANUAL DIFF REQ NO Normal [facility] Comment on above: Performed By: #### C BC #### [facility] [address] [place] [address] Dr. Nuha Marinelli MCH (RBC) [Entitic mass] 28.0 pg Normal 26.7-34.0 [facility] Comment on above: Performed By: #### C BC #### [facility] [address] [place] [address] Dr. Nuha Marinelli MCHC (RBC) [Mass/Vol] 33.2 g/dL Normal 29.9-35.2 [facility] Comment on above: Performed By: #### C BC #### [facility] [address] [place] [address] Dr. Nuha Marinelli MCV (RBC) [Entitic vol] 84.5 fL Normal 81.0-99.0 [facility] Comment on above: Performed By: #### C BC #### [facility] [address] [place] [address] Dr. Nuha Marinelli MONO # 0.5 103/ul Normal 0.3-0.8 [facility] Comment on above: Performed By: #### C BC #### [facility] [address] [place] [address] Dr. Nuha Marinelli Monocytes/100 WBC (Bld) 6.8 % Normal 1.7-12.0 [facility] Comment on above: Performed By: #### C BC #### [facility] [address] [place] [address] Dr. Nuha Marinelli NEUT # 4.3 103/ul Normal 1.4-6.5 [facility] Comment on above: Performed By: #### C BC #### [facility] [address] [place] [address] Dr. Nuha Marinelli Neutrophils/100 WBC (Bld) 58.3 % Normal 43.0-75.0 [facility] Comment on above: Performed By: #### C BC #### [facility] [address] [place] [address] Dr. Nuha Marinelli Platelet mean volume (Bld) [Entitic vol] 9.2 fL Critically low 9.5-13.5 [facility] Comment on above: Performed By: #### C BC #### [facility] [address] [place] [address] Dr. Nuha Marinelli PLT 209 103/ul Normal 150-450 [facility] Comment on above: Performed By: #### C BC #### [facility] [address] [place] [address] Dr. Nuha Marinelli RBC 4.85 106/ul Normal 4.20-5.40 [facility] Comment on above: Performed By: #### C BC #### [facility] [address] [place] [address] Dr. Nuha Marinelli WBC 7.4 103/ul Normal 4.0-11.0 [facility] Comment on above: Performed By: #### C BC #### [facility] [address] [place] [address] Dr. Nuha Marinelli LIPID PROFILEon 05-12-2022 CHOL-HDL RATIO NORM SEE BELOW Normal [facility] Comment on above: Result Comment: 3.3 - 4.4 LOW RISK 4.4 - 7.1 AVERAGE RISK 7.1 - 11.0 MODERATE RISK >11.0 HIGH RISK Performed By: #### B MP, LIPID #### [facility] [address] [place] [address] Dr. Nuha Marinelli Cholesterol [Mass/Vol] 183 mg/dL Normal <=200 [facility] Comment on above: Performed By: #### B MP, LIPID #### [facility] [address] [place] [address] Dr. Nuha Marinelli Cholesterol in HDL [Mass/Vol] 47 mg/dL Normal 40-60 [facility] Comment on above: Performed By: #### B MP, LIPID #### [facility] [address] [place] [address] Dr. Nuha Marinelli Cholesterol in LDL [Mass/Vol] 102.8 mg/dL Normal [facility] Comment on above: Performed By: #### B MP, LIPID #### [facility] [address] [place] [address] [address] Nuha Marinelli Cholesterol.total/Awilda sterol in HDL [Mass ratio] 3.9 {ratio} Normal [facility] Comment on above: Performed By: #### B MP, LIPID #### [facility] [address] [place] [address] [address] Nuha Marinelli HDL NORMAL > or = 60 mg/dl - LO W CARDIOVASCULAR RISK <40 mg/dl - HIGH CARDIOVASCULAR RISK Normal [facility] Comment on above: Performed By: #### B MP, LIPID #### [facility] [address] [place] [address] [address] Nuha Marinelli LDL CALC NORMAL SEE BELOW Normal [facility] Comment on above: Result Comment: <100 mg/dl OPTIMAL 100 - 129 mg/dl NEAR OR ABOVE OPTIMAL 130 - 159 mg/dl BORDERLINE HIGH 160 - 189 mg/dl HIGH >190 mg/dl VERY HIGH Performed By: #### B MP, LIPID #### [facility] [address] [place] [address] [address] Nuha Marinelli Triglyceride [Mass/Vol] 166 mg/dL Critically high <=150 [facility] Comment on above: Performed By: #### B MP, LIPID #### [facility] [address] [place] [address] [address] Nuha Marinelli VLDL CALC 33.2 mg/dL Normal [facility] Comment on above: Performed By: #### B MP, LIPID #### [facility] [address] [place] [address] [address] Nuha Marinelli MG MAMM SCREEN 3D CARSON CADon 05-12-2022 MG MAMM SCREEN 3D CARSON CAD Patient: KEELY CHOPRA Exam Date: 05/12/2022 : 1955 Gender:F Ordering : DR JOY LEAL . Admission #: [id number] Family : Order #: [id number] CLICK HERE TO VIEW EXAM RADIOLOGY REPORT [...] liver cancer at age 4. LOCATION: [facility] BREAST COMPOSITION: Heterogeneously dense,which may [...] MD on 05/13/2022 at 11:15 Normal [facility] PROF CHEM 8 (BAS METB)on Anion gap [Moles/Vol] 12.1 mmol/L Normal [facility] Comment on above: Performed By: #### B MP, LIPID #### [facility] [address] [place] [address] Dr. Nuha Marinelli Calcium [Mass/Vol] 9.3 mg/dL Normal 8.5-10.1 [facility] Comment on above: Performed By: #### B MP, LIPID #### [facility] [address] [place] [address] Dr. Nuha Marinelli Chloride [Moles/Vol] 99 mmol/L Normal 98-107 [facility] Comment on above: Performed By: #### B MP, LIPID #### [facility] [address] [place] [address] Dr. Nuha Marinelli CO2 [Moles/Vol] 29.7 mmol/L Normal 21.0-32.0 [facility] Comment on above: Performed By: #### B MP, LIPID #### [facility] [address] [place] [address] [address] Nuha Marinelli Creatinine [Mass/Vol] 0.77 mg/dL Normal 0.55-1.02 [facility] Comment on above: Performed By: #### B MP, LIPID #### [facility] [address] [place] [address] [address] Nuha Marinelli EGFR-AF BENINESE >60 Normal >=60 [facility] Comment on above: Performed By: #### B MP, LIPID #### [facility] [address] [place] [address] [address] Nuha Marinelli EGFR-NON AF BENINESE >60 Normal >=60 [facility] Comment on above: Performed By: #### B MP, LIPID #### [facility] [address] [place] [address] Dr. Nuha Marinelli Glucose [Mass/Vol] 112 mg/dL Critically high 74-106 [facility] Comment on above: Performed By: #### B MP, LIPID #### [facility] [address] [place] [address] Dr. Nuha Marinelli Potassium [Moles/Vol] 3.8 mmol/L Normal 3.5-5.1 [facility] Comment on above: Performed By: #### B MP, LIPID #### [facility] [address] [place] [address] Dr. Nuha Marinelli Sodium [Moles/Vol] 137 mmol/L Normal 136-145 [facility] Comment on above: Performed By: #### B MP, LIPID #### [facility] [address] [place] [address] Dr. Nuha Marinelli Urea nitrogen [Mass/Vol] 15.0 mg/dL Normal 7.0-18.0 [facility] Comment on above: Performed By: #### B MP, LIPID #### [facility] [address] [place] [address] Dr. Nuha Marinelli Urea nitrogen/Creatinine [Mass ratio] 19.5 mg/mg Normal [facility] Comment on above: Performed By: #### B MP, LIPID #### [facility] [address] [place] [address] [address] Nuha Marinelli CBC AUTO DIFFon 11-15-2021 BASO # 0.0 103/ul Normal 0.0-0.1 [facility] Comment on above: Performed By: #### C BC #### [facility] [address] [place] [address] Dr. Nuha Marinelli Basophils/100 WBC (Bld) 0.6 % Normal 0.2-2.0 [facility] Comment on above: Performed By: #### C BC #### [facility] [address] [place] [address] Dr. Nuha Marinelli EO # 0.3 103/ul Normal 0.0-0.7 [facility] Comment on above: Performed By: #### C BC #### [facility] [address] [place] [address] Dr. Nuha Marinelli Eosinophils/100 WBC (Bld) 4.3 % Normal 0.9-7.0 [facility] Comment on above: Performed By: #### C BC #### [facility] [address] [place] [address] Dr. Nuha Marinelli Erythrocyte distribution width (RBC) [Ratio] 13.6 % Normal 11.0-15.0 [facility] Comment on above: Performed By: #### C BC #### [facility] [address] [place] [address] Dr. Nuha Marinelli Hematocrit (Bld) [Volume fraction] 39.8 % Normal 36.0-48.0 [facility] Comment on above: Performed By: #### C BC #### [facility] [address] [place] [address] Dr. Nuha Marinelli Hemoglobin (Bld) [Mass/Vol] 13.0 g/dL Normal 12.0-16.0 [facility] Comment on above: Performed By: #### C BC #### [facility] [address] [place] [address] Dr. Nuha Marinelli IG # 0.02 10e3/ul Normal 0.00-0.03 [facility] Comment on above: Performed By: #### C BC #### [facility] [address] [place] [address] Dr. Nuha Marinelli IG % 0.3 % Normal 0.0-0.5 [facility] Comment on above: Performed By: #### C BC #### [facility] [address] [place] [address] Dr. Nuha Marinelli LYMPH # 2.4 103/ul Normal 1.2-3.8 [facility] Comment on above: Performed By: #### C BC #### [facility] [address] [place] [address] Dr. Nuha Marinelli Lymphocytes/100 WBC (Bld) 36.5 % Normal 20.5-60.0 [facility] Comment on above: Performed By: #### C BC #### [facility] [address] [place] [address] Dr. Nuha Marinelli MANUAL DIFF REQ NO Normal [facility] Comment on above: Performed By: #### C BC #### [facility] [address] [place] [address] Dr. Nuha Marinelli MCH (RBC) [Entitic mass] 28.6 pg Normal 26.7-34.0 [facility] Comment on above: Performed By: #### C BC #### [facility] [address] [place] [address] Dr. Nuha Marinelli MCHC (RBC) [Mass/Vol] 32.7 g/dL Normal 29.9-35.2 [facility] Comment on above: Performed By: #### C BC #### [facility] [address] [place] [address] Dr. Nuha Marinelli MCV (RBC) [Entitic vol] 87.5 fL Normal 81.0-99.0 [facility] Comment on above: Performed By: #### C BC #### [facility] [address] [place] [address] Dr. Nuha Marinelli MONO # 0.6 103/ul Normal 0.3-0.8 [facility] Comment on above: Performed By: #### C BC #### [facility] [address] [place] [address] Dr. Nuha Marinelli Monocytes/100 WBC (Bld) 9.0 % Normal 1.7-12.0 [facility] Comment on above: Performed By: #### C BC #### [facility] [address] [place] [address] Dr. Nuha Marinelli NEUT # 3.3 103/ul Normal 1.4-6.5 [facility] Comment on above: Performed By: #### C BC #### [facility] [address] [place] [address] Dr. Nuha Marinelli Neutrophils/100 WBC (Bld) 49.3 % Normal 43.0-75.0 [facility] Comment on above: Performed By: #### C BC #### [facility] [address] [place] [address] Dr. Nuha Marinelli Platelet mean volume (Bld) [Entitic vol] 9.3 fL Critically low 9.5-13.5 [facility] Comment on above: Performed By: #### C BC #### [facility] [address] [place] [address] Dr. Nuha Marinelli PLT 181 103/ul Normal 150-450 [facility] Comment on above: Performed By: #### C BC #### [facility] [address] [place] [address] Dr. Nuha Marinelli RBC 4.55 106/ul Normal 4.20-5.40 [facility] Comment on above: Performed By: #### C BC #### [facility] [address] [place] [address] Dr. Nuha Marinelli WBC 6.7 103/ul Normal 4.0-11.0 [facility] Comment on above: Performed By: #### C BC #### [facility] [address] [place] [address] Dr. Nuha Marinelli LIPID PROFILEon 11-15-2021 CHOL-HDL RATIO NORM SEE BELOW Normal [facility] Comment on above: Result Comment: 3.3 - 4.4 LOW RISK 4.4 - 7.1 AVERAGE RISK 7.1 - 11.0 MODERATE RISK >11.0 HIGH RISK Performed By: #### L IPID, CMP, TSH #### [facility] [address] [address] [address] Nuha Marinelli Cholesterol [Mass/Vol] 219 mg/dL Critically high <=200 [facility] Comment on above: Performed By: #### L IPID, CMP, TSH #### [facility] [address] [address] [address] Nuha Marinelli Cholesterol in HDL [Mass/Vol] 47 mg/dL Normal 40-60 [facility] Comment on above: Performed By: #### L IPID, CMP, TSH #### [facility] [address] [address] [address] Nuha Marinelli Cholesterol in LDL [Mass/Vol] 139.2 mg/dL Normal [facility] Comment on above: Performed By: #### L IPID, CMP, TSH #### [facility] [address] [address] [address] Nuha Marinelli Cholesterol.total/Awilda sterol in HDL [Mass ratio] 4.7 {ratio} Normal [facility] Comment on above: Performed By: #### L IPID, CMP, TSH #### [facility] [address] [address] [address] Nuha Marinelli HDL NORMAL > or = 60 mg/dl - LO W CARDIOVASCULAR RISK <40 mg/dl - HIGH CARDIOVASCULAR RISK Normal [facility] Comment on above: Performed By: #### L IPID, CMP, TSH #### [facility] [address] [address] [address] Nuha Marinelli LDL CALC NORMAL SEE BELOW Normal [facility] Comment on above: Result Comment: <100 mg/dl OPTIMAL 100 - 129 mg/dl NEAR OR ABOVE OPTIMAL 130 - 159 mg/dl BORDERLINE HIGH 160 - 189 mg/dl HIGH >190 mg/dl VERY HIGH Performed By: #### L IPID, CMP, TSH #### [facility] [address] [address] [address] Nuha Marinelli Triglyceride [Mass/Vol] 164 mg/dL Critically high <=150 [facility] Comment on above: Performed By: #### L IPID, CMP, TSH #### [facility] [address] [address] [address] Nuha Marinelli VLDL CALC 32.8 mg/dL Normal [facility] Comment on above: Performed By: #### L IPID, CMP, TSH #### [facility] [address] [address] [address] Nuha Marinelli PROF 14(COMP METB)on 022 Albumin [Mass/Vol] 3.7 g/dL Normal 3.4-5.0 [facility] Comment on above: Performed By: #### L IPID, CMP, TSH #### [facility] [address] [address] [address] Nuha Marinelli Albumin/Globulin [Mass ratio] 1.0 {ratio} Normal [facility] Comment on above: Performed By: #### L IPID, CMP, TSH #### [facility] [address] [place] [address] Dr. Nuha Marinelli ALP [Catalytic activity/Vol] 79 U/L Normal 46-116 [facility] Comment on above: Performed By: #### L IPID, CMP, TSH #### [facility] [address] [place] [address] Dr. Nuha Marinelli ALT [Catalytic activity/Vol] 32 U/L Normal 14-59 [facility] Comment on above: Performed By: #### L IPID, CMP, TSH #### [facility] [address] [place] [address] Dr. Nuha Marinelli Anion gap [Moles/Vol] 12.6 mmol/L Normal [facility] Comment on above: Performed By: #### L IPID, CMP, TSH #### [facility] [address] [place] [address] Dr. Nuha Marinelli AST [Catalytic activity/Vol] 16 U/L Normal 15-37 [facility] Comment on above: Performed By: #### L IPID, CMP, TSH #### [facility] [address] [place] [address] Dr. Nuha Marinelli Bilirubin [Mass/Vol] 0.5 mg/dL Normal 0.2-1.0 [facility] Comment on above: Performed By: #### L IPID, CMP, TSH #### [facility] [address] [address] [address] Nuha Marinelli Calcium [Mass/Vol] 8.9 mg/dL Normal 8.5-10.1 [facility] Comment on above: Performed By: #### L IPID, CMP, TSH #### [facility] [address] [address] [address] Nuha Marinelli Chloride [Moles/Vol] 102 mmol/L Normal 98-107 [facility] Comment on above: Performed By: #### L IPID, CMP, TSH #### [facility] [address] [address] [address] Nuha Marinelli CO2 [Moles/Vol] 27.7 mmol/L Normal 21.0-32.0 [facility] Comment on above: Performed By: #### L IPID, CMP, TSH #### [facility] [address] [place] [address] Dr. Nuha Marinelli Creatinine [Mass/Vol] 0.90 mg/dL Normal 0.55-1.02 [facility] Comment on above: Performed By: #### L IPID, CMP, TSH #### [facility] [address] [place] [address] Dr. Nuha Marinelli EGFR-AF BENINESE >60 Normal >=60 [facility] Comment on above: Performed By: #### L IPID, CMP, TSH #### [facility] [address] [place] [address] Dr. Nuha Marinelli EGFR-NON AF BENINESE >60 Normal >=60 [facility] Comment on above: Performed By: #### L IPID, CMP, TSH #### [facility] [address] [place] [address] Dr. Nuha Marinelli Globulin (S) [Mass/Vol] 3.7 g/dL Normal [facility] Comment on above: Performed By: #### L IPID, CMP, TSH #### [facility] [address] [place] [address] Dr. Nuha Marinelli Glucose [Mass/Vol] 108 mg/dL Critically high 74-106 [facility] Comment on above: Performed By: #### L IPID, CMP, TSH #### [facility] [address] [place] [address] Dr. Nuha Marinelli Potassium [Moles/Vol] 4.3 mmol/L Normal 3.5-5.1 [facility] Comment on above: Performed By: #### L IPID, CMP, TSH #### [facility] [address] [place] [address] Dr. Nuha Marinelli Protein [Mass/Vol] 7.4 g/dL Normal 6.4-8.2 [facility] Comment on above: Performed By: #### L IPID, CMP, TSH #### [facility] [address] [place] [address] Dr. Nuha Marinelli Sodium [Moles/Vol] 138 mmol/L Normal 136-145 [facility] Comment on above: Performed By: #### L IPID, CMP, TSH #### [facility] [address] [place] [address] Dr. Nuha Marinelli Urea nitrogen [Mass/Vol] 18.0 mg/dL Normal 7.0-18.0 [facility] Comment on above: Performed By: #### L IPID, CMP, TSH #### [facility] [address] [place] [address] Dr. Nuha Marinelli Urea nitrogen/Creatinine [Mass ratio] 20.0 mg/mg Normal [facility] Comment on above: Performed By: #### L IPID, CMP, TSH #### [facility] [address] [place] [address] Dr. Nuha Marinelli TSHon 11-15-2021 TSH 1.735 uIU/mL Normal 0.358-3.74 0 [facility] Comment on above: Performed By: #### L IPID, CMP, TSH #### [facility] [address] [place] [address] Dr. Nuha Marinelli Vital Signs Date Time Vital Sign Value Performing Clinician Facility 09-23-2024 09:27-0400 Diastolic blood pressure 91 mm[Hg] Juan Domingo MD Work Phone: [facility] 09-23-2024 09:27-0400 Systolic blood pressure 138 mm[Hg] Juan Domingo MD Work Phone: [facility] 09-23-2024 09:26-0400 Heart rate 82 /min Juan Domingo MD Work Phone: [facility] 08-22-2024 09:04-0400 Body height 157.5 cm [facility] 08-22-2024 09:04-0400 Body mass index (BMI) [Ratio] 48.14 kg/m2 [facility] 08-22-2024 09:04-0400 Body weight 119.39 kg [facility] 08-22-2024 09:04-0400 Diastolic blood pressure 88 mm[Hg] [facility] 08-22-2024 09:04-0400 Heart rate 67 /min [facility] 08-22-2024 09:04-0400 Systolic blood pressure 142 mm[Hg] [facility] 08-08-2024 09:55-0400 Body height 157.5 cm Troy Vasquez MD Work Phone: [facility] 08-08-2024 09:55-0400 Body mass index (BMI) [Ratio] 48.29 kg/m2 Troy Vasquez MD Work Phone: [facility] 08-08-2024 09:55-0400 Body weight 119.75 kg Troy Vasquez MD Work Phone: [facility] 08-08-2024 09:55-0400 Diastolic blood pressure 86 mm[Hg] Troy Vasquez MD Work Phone: [facility] 08-08-2024 09:55-0400 Heart rate 76 /min Troy Vasquez MD Work Phone: [facility] 08-08-2024 09:55-0400 Systolic blood pressure 118 mm[Hg] Troy Vasquez MD Work Phone: [facility] 07-07-2024 10:55-0500 Diastolic blood pressure 80 mm[Hg] Le Cristiane [employer]OVE [employer]TER[employer]C Work Phone: [facility] 07-07-2024 10:55-0500 Heart rate 66 /min Le Cristiane [employer] Work Phone: [facility] 07-07-2024 10:55-0500 Respiratory rate 16 /min Le Cristiane [employer] Work Phone: [facility] 07-07-2024 10:55-0500 SaO2% (BldA) [Mass fraction] 98 % Le Cristiane [employer] Work Phone: [facility] 07-07-2024 10:55-0500 Systolic blood pressure 138 mm[Hg] Le Cristiane [employer] Work Phone: [facility] 07-07-2024 06:55-0500 Body height 157.48 cm Le Cristiane [employer] Work Phone: [facility] 07-07-2024 06:55-0500 Body temperature 97.4 [degF] Le Cristiane [employer] Work Phone: [facility] 07-07-2024 06:55-0500 Body weight 119.9 kg Le Cristiane [employer] Work Phone: [facility] 07-06-2024 16:45-0500 Body temperature 97.6 [degF] Le Cristiane [employer] Work Phone: [facility] 07-06-2024 16:45-0500 Diastolic blood pressure 58 mm[Hg] Le Cristiane [employer] Work Phone: [facility] 07-06-2024 16:45-0500 Heart rate 70 /min Le Cristiane [employer] Work Phone: [facility] 07-06-2024 16:45-0500 Respiratory rate 18 /min El Cristiane [employer]C Work Phone: [facility] 07-06-2024 16:45-0500 SaO2% (BldA) [Mass fraction] 98 % Le Cristiane [employer] Work Phone: [facility] 07-06-2024 16:45-0500 Systolic blood pressure 91 mm[Hg] Le Cristiane [employer] Work Phone: [facility] 07-06-2024 07:01-0500 Body weight 119.6 kg Le Cristiane [employer] Work Phone: [facility] 07-05-2024 23:50-0500 Body height 157.48 cm Le Cristiane [employer]C Work Phone: [facility] Encounters Encounter Date Encounter Type Care Provider Facility Start: 09-23-2024 End: 09-23-2024 Office outpatient new 45 minutes Le Huitron 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 Work Phone: [facility] Comment on above: NSTEMI (non-ST eleva dionne myocardial infarction) (HCC); Hypertension, unspecified type; Atrial flutter (HCC) Start: 09-23-2024 End: 09-23-2024 ambulatory JUAN DOMINGO [facility] Ambulatory Start: 09-12-2024 End: 09-12-2024 Orders Only Juan Domingo MD Work Phone: [facility] Comment on above: Atrial flutter (HCC) (Primary Dx) Start: 08-30-2024 End: 08-30-2024 ambulatory Le Huitron Facility:[facility] Start: 08-22-2024 End: 08-22-2024 Professional / ancillary services management Lauren Eastman LPN [facility] Comment on above: Paroxysmal atrial fi brillation (Multi) Start: 08-22-2024 End: 08-22-2024 ambulatory [facility] Ambulatory Start: 08-17-2024 End: 08-17-2024 Transcribe Orders Taty Block TECHNOLOGIST [facility] Comment on above: NSTEMI (non-ST eleva dionne myocardial infarction) (HCC) (Primary Dx); Hypertension, unspecified type Start: 08-15-2024 End: 08-15-2024 ambulatory Le L Cristiane Facility:[facility] Start: 08-09-2024 End: 08-09-2024 ambulatory Le L Cristiane Facility:[facility] Start: 08-08-2024 End: 08-08-2024 Office outpatient visit 25 minutes Troy Vasquez MD Work Phone: [facility] Comment on above: Paroxysmal atrial fi brillation (Multi) (Primary Dx); Myocardial infarction type 2 (Multi) Start: 08-08-2024 End: 08-08-2024 ambulatory [facility] Ambulatory Start: 07-15-2024 End: 07-15-2024 ambulatory Le L Cristiane Facility:[facility] Start: 07-11-2024 End: 07-11-2024 ambulatory Le L Cristiane Facility:[facility] Start: 07-07-2024 End: 07-07-2024 Emergency department patient visit Le Cristiane STOVE FITTER-C Work Phone: [facility] Work Phone: Start: 07-05-2024 End: 07-06-2024 Evaluation and management of inpatient Le Cristiane STOVE [employer]TER[employer]C Work Phone: [facility] Work Phone: Start: 04-11-2024 End: 04-11-2024 ambulatory Le L Cristiane Facility:[facility] Start: 03-28-2024 ambulatory Le L Cristiane Facility: [facility] Start: 03-21-2024 End: 03-21-2024 Bamboo flowsheet Alecia Ortez GUEST RELATION OFFICER-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 Work Phone: [facility] Start: 03-21-2024 End: 03-21-2024 Bamboo flowsheet Alecia Middleton Felter GUEST RELATION OFFICER-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 Work Phone: [facility] Start: 03-21-2024 End: 03-21-2024 Office outpatient visit 15 minutes Alecia Middleton Felter GUEST RELATION OFFICER-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 Work Phone: [facility] Comment on above: Psoriasis vulgaris ( CMS/HCC); Rash and other nonspecific skin eruption Start: 03-21-2024 End: 03-21-2024 ambulatory ALECIA A FELTER Not Available Start: 01-25-2024 End: 01-25-2024 Doto MobilyTripheet Alecia Middleton Felter GUEST RELATION OFFICER-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 Work Phone: [facility] Start: 01-25-2024 End: 01-25-2024 BamBATSo MobilyTripheet Alecia Middleton Felter GUEST RELATION OFFICER-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 Work Phone: [facility] Start: 01-25-2024 End: 01-25-2024 Office outpatient visit 25 minutes Alecia Hernandezer GUEST RELATION OFFICER-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 Work Phone: [facility] Comment on above: Seborrheic keratosis ; Lentigines; Melanocytic nevus of trunk; Seborrheic keratosis, inflamed; Psoriasis vulgaris (CMS/HCC); Rash and other nonspecific skin eruption; Neoplasm of unspecified behavior of bone, soft tissue, and skin Start: 01-25-2024 End: 01-25-2024 ambulatory ALECIA A FELTER Not Available Start: 12-02-2023 End: 12-02-2023 ambulatory Le Huitron Facility:[facility] Start: 09-02-2023 End: 09-02-2023 ambulatory Le L Cristiane Facility:[facility] Start: 07-03-2023 End: 07-03-2023 [...] Start: 07-07-2024 Plain chest X-ray Le Huitron [employer]TER[employer]C Work Phone: Start: 07-06-2024 [facility] Angio (Right) Le Huitron STOVE FITTER[employer]C Work Phone: Start: 07-06-2024 Le ruano STOVE FITTER-C Work Phone: Start: 06-08-2024 Mammography Juan Domingo MD Work Phone: Start: 01-25-2024 CRYOTHERAPY SKIN LESION Alecia Ortez GUEST RELATION OFFICER-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 Work Phone: Start: 01-25-2024 End: 01-25-2024 SKIN / NAIL BIOPSY Alecia Ortez GUEST RELATION OFFICER-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 Work Phone: Start: 05-18-2013 Colonoscopy Alecia Farrell lter GUEST RELATION OFFICER-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 Work Phone: Plan of Treatment Date Care Activity Detail Author Start: 06-08-2025 Screening for malignant neoplasm of breast Mammogram [facility] Start: 03-21-2025 End: 03-21-2025 Patient encounter procedure 03/21/2025 10:35 AM EST Office Visit [facility] [address] [place] [address] PérezAbbeyian Middleton, GUEST RELATION OFFICER-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 [address] [place], [place] [phone] [facility] Start: 03-20-2025 End: 03-20-2025 Patient encounter procedure 03/20/2025 10:00 AM EST Office Visit [facility] [address] [place] [address] Juan Domingo MD [address] [place] [address] [facility] Start: 12-23-2024 End: 12-23-2024 Patient encounter procedure 12/23/2024 9:00 AM EDT Office Visit [facility] [address] [place] [address] Troy Vasquez MD [address] [facility] [address] [place], [place] [phone] [facility] Start: 09-23-2024 End: 09-23-2024 Patient encounter procedure 09/23/2024 9:30 AM EDT Office Visit [facility] [address] [place] [phone] Le Huitron, [facility] [address] [place] [address] Juan Domingo MD [address] [place] [address] [facility] Start: 09-22-2024 COVID-19 Vaccine ( season) COVID-19 Vaccine ( season) [facility] Start: 08-22-2024 End: 08-08-2025 ECG 12 Lead [facility] Service Area Work Phone: Comment on above: Expected: 08/22/2024 (Approximate), Expi res: 08/08/2025 Start: 08-22-2024 End: 08-22-2024 Professional / ancillary services management 08/22/2024 9:00 AM EDT Ancillary Procedure [place] [id number] [address] [phone] [facility] Start: 07-06-2024 [facility] Start: 07-06-2024 [facility] Start: 07-05-2024 Hospital admission [facility] Start: 03-21-2024 End: 03-21-2024 Patient encounter procedure 03/21/2024 10:40 AM EST Office Visit [facility] [address] [place] [phone] Alecia Ortez, GUEST RELATION OFFICER-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 [address] [place] [address] Arrived [facility] Comment on above: Arrived Start: 02-15-2024 End: 02-15-2024 Patient encounter procedure 02/15/2024 9:35 AM EDT Office Visit [facility] [address] [place] [phone] Alecia Ortez, GUEST RELATION OFFICER-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 [address] [place] [address] [facility] Start: 01-25-2024 End: 01-25-2024 Patient encounter procedure 01/25/2024 9:55 AM EDT Office Visit [facility] [address] [place] [phone] Alecia Ortez, GUEST RELATION OFFICER-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 [address] [place] [address] Arrived [facility] Comment on above: Arrived Start: 01-17-2024 COVID-19 Vaccine ( season) COVID-19 Vaccine ( season) [facility] Start: 01-17-2024 COVID-19 Vaccine ( season) COVID-19 Vaccine ( season) [facility] Start: 01-17-2024 Influenza vaccination Influenza Vaccine (#1) [facility] Start: 05-18-2023 Screening for malignant neoplasm of colon [facility] Start: 03-14-2021 Pneumococcal Vaccine: 65+ Years (2 of 2 - PPSV23 or PCV20) Pneumococcal Vaccine: 65+ Years (2 of 2 - PPSV23 or PCV20) [facility] Start: 03-14-2021 Pneumococcal Vaccine: Age 50+ (2 of 2 - PPSV23) Pneumococcal Vaccine: Age 50+ (2 of 2 - PPSV23) [facility] Start: 05-09-2020 Pneumococcal vaccination Pneumococcal Vaccine (2 of 2 - PPSV23) [facility] Start: 2018 Fall risk assessment Falls Risk Assessment [facility] Start: 2013 Respiratory Syncytial Virus Immunization: Risk, 60-74 Risk, or 75+ (1 - Risk 60-74 years 1-dose series) Respiratory Syncytial Virus Immunization: Risk, 60-74 Risk, or 75+ (1 - Risk 60-74 years 1-dose series) [facility] Start: 2013 RSV High Risk: (Elderly (60+) or Population) (1 - Risk 60-74 years 1-dose series) RSV High Risk: (Elderly (60+) or Population) (1 - Risk 60-74 years 1-dose series) [facility] Start: 08-03-2003 Screening for malignant neoplasm of colon Flexible sigmoidoscopy [facility] Start: 1993 Screening for malignant neoplasm of breast Mammogram [facility] Start: 08-03-1975 DTaP/Tdap/Td Vaccines (1 - Tdap) DTaP/Tdap/Td Vaccines (1 - Tdap) [facility] Start: 08-03-1971 Diabetes mellitus screening Diabetes Screening [facility] Start: 08-03-1971 Hepatitis C screening Hepatitis C Screening [facility] Start: 1965 Depression screening using PHQ-9 (Patient Health Questionnaire 9) score Depression Screening/Follow-Up (PHQ-2/9) [facility] Start: 1956 Medicare Wellness Visit Medicare Wellness Visit [facility] Start: 1953 Lipid panel Lipid Panel [facility] Start: 1953 Medicare Annual Wellness Visit Medicare Annual Wellness Visit (AWV) [facility] Start: 1953 Screening for malignant neoplasm of colon [facility] Start: 1953 Screening for osteoporosis [facility] Start: 1953 Tetanus vaccination Tetanus: Every 10yrs [facility] End: 09-12-2027 12 lead ECG ECG 12 Lead ECG Routine Atrial flutter (HCC) 1 Occurrences starting 09/12/2024 until 09/12/2027 [facility] Work Phone: Comment on above: 1 Occurrences starting 09/12/2024 until 09/12/2027 Dermatopathology exam Dermatopat hology exam Pathology and Cytology Timed Neoplasm of unspecified behavior of bone, soft tissue, and skin Release Upon Ordering for 1 Occurrences starting 01/25/2024 [facility] Work Phone: Comment on above: Release Upon Ordering for 1 Occurrences starting 01/25/2024 Patient Education [facility] Work Phone: Patient referral [facility] Work Phone: Immunizations Immunization Date Immunization Notes Care Provider Fa bre 02-23-2024 influenza, seasonal, injectable Troy Vasquez MD Work Phone: [facility] Work Phone: 04-01-2023 influenza virus vaccine, unspecified formulation Alecia Hernandezashleigh GUEST RELATION OFFICER-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 Work Phone: [facility] Healthcare Payers Date Payer Category Payer Self-pay 2023 Private Health Insurance [id number] 2021 Medicare supplementa l policy (as second payer) [id number] 2018 Medicare [id number] 1959 Medicare [id number] 1959 Private Health Insurance CLI [id number] 1953 Unknown [id number] [id number]. 593 1953 Unknown [id number] [id number]. 593 1953 Unknown [id number] 2.16.840.1.514644.3.579.2. 1259 1953 Unknown [id number] 2.16.840.1.864252.3.579.2. 1259 1953 Unknown [id number] 2.16.840.1.050631.3.579.2. 1259 1953 Unknown [id number] 2.16.840.1.327259.3.579.2. 1259 1953 Unknown [id number] 2.16.840.1.441662.3.579.2. 1244 1953 Unknown [id number] 2.16.840.1.500268.3.579.2. 1244 1953 Unknown [id number] 2.16.840.1.026055.3.579.2. 727 1953 Unknown [id number] 2.16.840.1.393027.3.579.2. 727 1953 Unknown [id number] 2.16.840.1.389962.3.579.2. 727 1953 Unknown [id number] 1955 Unknown [id number]. 727 1955 Unknown [id number]. 727 1955 Unknown [id number] 2.16.840.1.229126.3.579.2. 727 1955 Unknown [id number] 2.16.840.1.688923.3.579.2. 727 1955 Unknown [id number] 2.16.840.1.452568.3.579.2. 727 1955 Unknown [id number] [id number]. 903 Unknown Regular Insurance [id number] Unknown [id number] [id number]. 531 Unknown [id number]. 531 Social History Date Type Detail Facility Start: 05-05-2023 End: 09-23-2024 Tobacco smoking status NHIS Never smoked tobacco [facility] Start: 01-25-2024 End: 08-22-2024 Alcoholic beverage intake Lifetime non-drinker (finding) [facility] Start: 01-25-2024 End: 09-23-2024 History of Social function [facility] Start: 01-25-2024 End: 09-23-2024 Tobacco use panel [facility] Start: 05-05-2023 Alcohol Comment caffeine: 1-2 cups per day [facility] Start: 1955 Sex assigned at Not on file [facility] Start: 07-06-2024 End: 07-07-2024 Sex Female (finding) [facility] Start: 1955 Sex Assigned At Female F [facility] Start: 08-08-2024 End: 09-23-2024 Tobacco use and exposure Smokeless tobacco non-user [facility] Work Phone: Start: 07-29-2024 End: 08-22-2024 Exposure to SARS-CoV-2 (event) Not sure [facility] Tobacco smoking stat us NHIS Tobacco smoking consumption unknown [facility] Start: 09-23-2024 Alcoholic beverage intake Ex-drinker (finding) [facility] Goals Date Patient Goal Desired Activity /State Functional Status Date Assessment Result Facility 07-06-2024 Functional status Patient at Baseline [facility] Work Phone: Mental Status Date Assessment Result Facility 07-06-2024 Cognitive function Cognitive Sta tus Patient at Baseline [facility] Work Phone: Clinical Notes 01-25-2024 to 09-23-2024 Juan Domingo MD - 09/23/2024 10:16 AM EDTPramy Eastman LPN - 08/22/2024 9:00 AM Antonino Vasquez MD - 08/08/2024 10:00 AM EDTPatient Instructions Note Date & Type Note Facility 09-23-2024 Note Electrophysiology Cl inic Consult Heart & Vascular [facility] 09/23/2024 Juan Domingo MD [address] [facility] [id number] Patient: Keely Chopra Date of : 1955 [...] her flecainide and apixaban. She has a [employer] mobile device which she will use to [...] reported atrial fibrillation. The patient lives in [facility]. She had experienced tachycardia that led to a brief hospitalization in June. She was felt to have atrial fibrillation and was started on therapeutic anticoagulation with apixaban. She was placed on metoprolol. She was seen in outpatient follow-up with a local product picker. The patient was experiencing some continued palpitations [...] AUTHENTICATED BY JUAN DOMINGO, ON 09/23/2024 10:20:40 [facility] 09-23-2024 History of Present illness Narrative Electrophysiology Clinic Consult Heart & Vascular [facility] 09/23/2024 Juan Domingo MD [address] [facility] [address] Patient: Keely Chopra Date of : [...] her flecainide and apixaban. She has a [employer] mobile device which she will use to [...] reported atrial fibrillation. The patient lives in [facility]. She had experienced tachycardia that led to a brief hospitalization in June. She was felt to have atrial fibrillation and was started on therapeutic anticoagulation with apixaban. She was placed on metoprolol. She was seen in outpatient follow-up with a local product picker. The patient was experiencing some continued palpitations [...] Final Result by Juan Domingo MD (09/23/2024 8695) HOME Medications: Patient's Medications New Prescriptions DILTIAZEM [...] Smokeless Tobacco Never documented in this encounter [facility] 09-23-2024 Instructions Jennifer Sampson RN - 09/23/2024 10:02 AM EDT AVS printed and reviewed. If you have any questions or concerns about your visit today with Dr. Domingo, please contact Milagro RN at [phone] . documented in this encounter [facility] 08-22-2024 History of Present illness Narrative Patient [...] (5' 2 ) documented in this encounter [facility] Work Phone: 08-08-2024 History of Present illness Narrative Chief Complaint Patient presents with [place] [facility] [place] Subjective Keely Chopra is a [...] palpitation and was in the hospital at [place] with an episode of atrial flutter. Assessment [...] discussion and plan. documented in this encounter [facility] Work Phone: 08-08-2024 Instructions Mariela Cullen [...] monitor Follow up documented in this encounter [facility] Work Phone: 07-06-2024 Procedure note [facility] 07-06-2024 Consult note Note Date/Time July 06, 2024 11:05am [facility] [address] [place] [address] Cardiology Consult Note Signed Patient: Keely Chopra MR#: [id number] : 1955 Acct:[id number] Age/Sex: 68 / F Adm Date: 5 Loc: Room: [address] [place] [address] Type: ADM IN Attending Dr: Christina Julien MD Copies to: MD Troy Frausto CNP, MD~ Cardiology HPI History of Present Illness Consult Date: 07/06/24 Reason for Consult: Cardiac consultation requested for evaluation of elevated troponin and atrial fibrillation HPI: Ms. Chopra is a 68 year old female with no prior cardiac history except hypertension presented to [facility] complaining of dizziness, palpitation and left jaw [...] system is negative other 1 mentioned above [facility] Source: Unable to Obtain Medical History (Updated 07/06/24 @ 00:14 by Akua Ellsworth APRN) Tear meniscus knee surgical intervention Problem List clean-up per request of Phys. EHR Cmte Anxiety Problem List clean-up per request of Phys. EHR Cmte Hypertension Problem List clean-up per request of Phys. EHR Cmte Surgical History (Updated 04/29/23 @ 13:50 by [employer] [place]) H/O breast biopsy Problem List clean-up per request of Phys. EHR Cmte History of appendectomy Problem List clean-up per request of Phys. EHR Cmte History of hysterectomy Problem List clean-up per request of Phys. [facility] Cmte Family History (Updated 07/06/24 @ 00:15 [...] x10E3/uL Lymph # (Auto) 1.9 (1.00-4.8) x10E3/uL [place] # (Auto) 0.5 (0.0-0.8) x10E3/uL Eos # [...] and interpreted as documented below: (EKG at [place] showed atrial fibrillation with RVR and nonspecific [...] statin Documented By: Troy Vasquez MD 07/06/24 1051 Signed By: <Electronically signed by MD Troy Vasquez> 07/06/24 7913 [facility] Work Phone: 1(254) 473-910702-19-2025 [place] [id number] Cardiology Consult Note Signed Patient: Keely Chopra MR#: [id number] : 1955 Acct:[id number] Age/Sex: 68 / F Adm Date: 02/18/2 5 Loc: 3T Room: 7E7995-0 Type: ADM IN Attending Dr: Christina Julien MD Copies to: Le Huitron 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 MD Troy Baker MD~ Cardiology HPI History of Present Illness Consult Date: 07/06/24 Reason for Consult: Cardiac consultation requested for evaluation of elevated troponin and atrial fibrillation HPI: Ms. Chopra is a 68 year old female with no prior cardiac history except hypertension presented to [facility] complaining of dizziness, palpitation and left jaw [...] system is negative other 1 mentioned above [facility] Source: Unable to Obtain Medical History (Updated 07/06/24 @ 00:14 by Akua Ellsworth APRN) Tear meniscus knee surgical intervention Problem List clean-up per request of Phys. EHR Cmte Anxiety Problem List clean-up per request of Phys. EHR [facility] Hypertension Problem List clean-up per request of Phys. EHR [facility] Surgical History (Updated 04/29/23 @ 13:50 by [employer] [place]) H/O breast biopsy Problem List clean-up per request of Phys. EHR Cmte History of appendectomy Problem List clean-up per request of Phys. EHR [facility] History of hysterectomy Problem List clean-up per request of Phys. EHR [facility] Family History (Updated 07/06/24 @ 00:15 by [...] x10E3/uL Lymph # (Auto) 1.9 (1.00-4.8) x10E3/uL [place] # (Auto) 0.5 (0.0-0.8) x10E3/uL Eos # [...] and interpreted as documented below: (EKG at [place] showed atrial fibrillation with RVR and nonspecific [...] MD 07/06/24 1059 Signed By: 07/06/24 1105 [facility]02-19-2025 History and physical note Author Akua Ellsworth [facility] Note Date/Time July 06, 2024 3:37am [facility] [address] [place] [address] Hospitalist H&P Signed Patient: Keely Chopra MR#: [id number] : 1955 Acct:[id number] Age/Sex: 68 / F Adm Date: 5 Loc: Room: [address] [place] [address] Type: ADM IN Attending Dr: Mahendra Garcia MD Copies to: MD Le Pryor CNP, APRN~ HPI DATE OF EXAMINATION: 07/05/24 CHIEF COMPLAINT: dizziness, chest pressure HISTORY OF PRESENT ILLNESS: Ms. Chopra is a 68-year-old female with a PMH of HTN, anxiety, RLS that presented to [facility] emergency room for dizziness, lightheadedness, chest pressure and jaw pain. Patient reports that she was grocery shopping whenshe developed dizziness and lightheadedness and some jaw pain. She finished [employer] shopping and drove home sat in the [...] still but not as bad as earlier. [facility] chart review?initial EKG A-fib with RVR. Repeat [...] She wastransferred here as inpatient to the [facility] telemetry floor. Review of Systems Review of Systems Review of systems: A 10 point review of systems was obtained, negative unless noted in the HPI or below. [facility] Medical History (Updated 07/06/24 @ 00:14 by Akua Ellsworth APRN) Tear meniscus knee surgical intervention Problem List clean-up per request of Phys. EHR Cmte Anxiety Problem List clean-up per request of Phys. EHR Cmte Hypertension Problem List clean-up per request of Phys. EHR Cmte Surgical History (Updated 04/29/23 @ 13:50 by [employer] [place]) H/O breast biopsy Problem List clean-up per [...] A-fib- converted with 10mg diltiazem IVP in [place] ER - Stat EKG is sinus rhythm- [...] 3 Documented By: Akua Ellsworth APRN 07/05/24 3979 Signed By: <Electronically signed by RAO Ellsworth> 07/06/24 0022 <Electronically signed by Mahendra Garcia MD> 07/06/24 0337 [facility] Work Phone: 1(472) 288-695402-19-2025 [place] [address] Hospitalist H&P Signed Patient: Keely Chopra MR#: [id number] : 1955 Acct:[id number] Age/Sex: 68 / F Adm Date: 5 Loc: Room: [address] [place] [address] Type: ADM IN Attending Dr: Mahendra Garcia MD Copies to: MD Le Pryor CNP, APRN~ HPI DATE OF EXAMINATION: 07/05/24 CHIEF COMPLAINT: dizziness, chest pressure HISTORY OF PRESENT ILLNESS: Ms. Chopra is a 68-year-old female with a PMH of HTN, anxiety, RLS that presented to [facility] emergency room for dizziness, lightheadedness, chest pressure and jaw pain. Patient reports that she was grocery shopping whenshe developed dizziness and lightheadedness and some jaw pain. She finished [employer] shopping and drove home sat in the [...] still but not as bad as earlier. [facility] chart review?initial EKG A-fib with RVR. Repeat [...] She wastransferred here as inpatient to the [facility] telemetry floor. Review of Systems Review of Systems Review of systems: A 10 point review of systems was obtained, negative unless noted in the HPI or below. [facility] Medical History (Updated 07/06/24 @ 00:14 by Akua Ellsworth APRN) Tear meniscus knee surgical intervention Problem List clean-up per request of Phys. EHR Cmte Anxiety Problem List clean-up per request of Phys. EHR Cmte Hypertension Problem List clean-up per request of Phys. EHR [facility] Surgical History (Updated 04/29/23 @ 13:50 by [employer] [place]) H/O breast biopsy Problem List clean-up per request of Phys. EHR Cmte History of appendectomy Problem List clean-up per request of Phys. EHR Cmte History of hysterectomy Problem List clean-up per request of Phys. EHR [facility] Family History (Updated 07/06/24 @ 00:15 by [...] A-fib- converted with 10mg diltiazem IVP in [place] ER - Stat EKG is sinus rhythm- [...] days): 3 Documented By: Akua Ellsworth APRN 07/05/247 Signed By: 07/06/24 0022 07/06/24 0337 [facility]02-19-2025 Evaluation note* Diagnosis Onset Date Resolution Status Admit Date A-fib acute July 05, 2024 11:26pm NSTEMI (non-ST elevated myocardial infarction) acute July 05, 2024 11:26pm [facility] Work Phone: 1(374) 237-874911-04-2024 History of Present illness Narrative* Alecia Ortez, RAO-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 - 03/21/2024 10:40 AM EST Follow up [...] below: 1. Psoriasis vulgaris (CMS/HCC) Left [place], Right Postauricular Area, Scalp Well-marginated erythematous papules/plaques [...] 1 year, follow up [id number] History of Present illness Narrative* HEAVEN [employer] [...] 4. Seborrheic keratosis, inflamed Neck - Anterior [place] and brown stuck on verrucous scaly papule [...] limited to risks of scarring, darker or type proof reproducer pigmentary changes, recurrence, incomplete removal and infection. [...] Anterior 5. Psoriasis vulgaris (CMS/HCC) Left [place], Right Postauricular Area, Scalp Well-marginated erythematous papules/plaques [...] lesion: 0.7 x 0.6 cm Left Chin [place] pearly papule Lesion biopsy Type of biopsy: [...] psoriasis/ rash follow [facility]* Diagnosis Psoriasis vulgaris (CMS/HCC) Other psoriasis Rash and other nonspecific skin eruption documented in this encounter [facility] HealthcareEvaluation note* Diagnosis Seborrheic keratosis Lentigines Melanocytic nevus of trunk Benign neoplasm of skin of trunk, except scrotum Seborrheic keratosis, inflamed Psoriasis vulgaris (CMS/HCC) Other psoriasis Rash and other nonspecific skin eruption Neoplasm of unspecified behavior of bone, soft tissue, and skin documented in this encounter [facility] HealthcareEvaluation note* Diagnosis Paroxysmal atrial fibrillation (Multi)- Primary Atrial fibrillation Myocardial infarction type 2 (Multi) documented in this encounter [facility] Work Phone: Evaluation note* Diagnosis NSTEMI (non-ST elevated myocardial infarction) (HCC)- Primary Acute myocardial infarction, subendocardial infarction, episode of care unspecified Hypertension, unspecified type [facility] Diagnosis Paroxysmal atrial fibrillation (Multi) Atrial fibrillation documented in this encounter [facility] Work Phone: Evaluation note* Diagnosis Atrial flutter (HCC)- Primary Atrial flutter [facility] Diagnosis NSTEMI (non-ST elevated myocardial infarction) (HCC) Acute myocardial infarction, subendocardial infarction, episode of care unspecified Hypertension, unspecified type Atrial flutter (HCC) Atrial flutter [facility] Additional Instructions DISCHARGE INSTRUCTIONS FOR CARDIAC PAPER SEALER PROCEDURE: Heart Cath The following instructions have [...] cold, numb, blue or white, call the product picker immediately. 4. ACTIVITY: You are advised to [...] bottle, follow the instructions on the bottle. [facility] is not responsible for incorrect prescription information provided by the patient during their visit. Do not stop your medications without consulting your health care provider. Please take the list with you to your next doctor's appointment.[facility] Work Phone: Hospital Discharge instructions Additional Instructions Take metoprolol as prescribed. Follow-up with your product picker for ongoing management.[facility] Work Phone: Reason for visit Narrative* Cardiovascular (Routine) - Authorized Specialty Diagnoses / Procedures Referred By Contac t Referred To Contact Diagnoses Paroxysmal atrial fibrillation (Multi) Procedures ECG 12 Lead Troy Vasquez MD [address] [address] Phone: tel: fax: Referral ID Status Reason Start Date Expiration Date V isits Requested Visits Authorized [id number] Authorized 08/08/2024 08/08/2025 1 1 [facility] Work Phone: Summary Purpose Family History [...] DATE CREATED AUTHOR AUTHOR'S ORGANIZ ATION 03/22/2024 [facility] EPIC DATE CREATED AUTHOR AUTHOR'S ORGANIZ ATION 07/20/2024 [facility] DATE CREATED AUTHOR AUTHOR'S ORGANIZ ATION 08/23/2024 [facility] DATE CREATED AUTHOR AUTHOR'S ORGANIZ ATION 08/31/2024 [facility] DATE CREATED AUTHOR AUTHOR'S ORGANIZ ATION 09/25/2024 [facility] Reason for Visit (unrecogniz ed section and content) Reason Comments Follow-up Reason Comments Skin Check Reason Comments Follow-up [facility] 07/06 Reason Comments Establish Care Specialty Diagnoses / Procedures Referred By Contac t Referred To Contact Cardiology Diagnoses NSTEMI (non-ST elevated myocardial infarction) (HCC) Hypertension, unspecified type Le Huitron CNP [address] [place] [address] Phone: tel: fax: Juan Domingo MD [address] [place] [address] Phone: tel: fax: Referral ID Status Reason Start Date Expiration Date Visits Re quested Visits Authorized [id number] Closed 08/17/2024 08/17/2025 1 1 Care Teams [...] July 07, 2024 End: July 07, 2024 Machine Package Sealer Relationship Specialty Start Date End Date Le Huitron APRN-GENIE [address] [place] [address] PCP - General 08/08/24 Machine Package Sealer Relationship Specialty Start Date End Date CristianeLe CNP [address] [place] [address] PCP - General Nurse Practitioner 08/17/24 Machine Package Sealer Relationship Specialty Start Date End Date CristianeLe so APRN-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 [address] [place] [address] PCP - General 08/08/24 Machine Package Sealer Relationship Specialty Start Date End Date CristianeLe so CNP [address] [place] [address] PCP - General Nurse Practitioner 08/17/24 Machine Package Sealer Relationship Specialty Start Date End Date Cristiane Le Zimmer CNP [address] [place] [address] PCP - General Nurse Practitioner 08/17/24 FOR [...] ON THE PRIMARY CLINICAL RECORDS. [facility] [employer] provides no warranty or guarantee of the accuracy or completeness of information in this document.
--- NOTE | 2024-09-28 17:31 | ECG_ITS ---
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 Measurements Intervals [place] Rate: 85 P: 39 NH: 202 QRS: 55 QRSD: 78 T: 51 QT: 324 QTc: 366 Interpretive Statements 1100 Sinus rhythm 1102 Sinus arrhythmia 9110 normal ECG Compared to ECG 09/28/2024 17:23:06 Supraventricular tachycardia no longer present ST (T wave) deviation no longer present Possible ischemia no longer present Electronically Signed On 09-28-2024 23:18:47 EDT by NICK RUBIN M.D.
[2024-09-28 17:35] VITALS: PULSE 166
[2024-09-28 18:07] LABS: Basophils Absolute Auto 0.1 10^3/uL (0.0-0.1); Basophils Percent Auto 0.6 % (0.2-2.0); Eosinophils Absolute Auto 0.2 10^3/uL (0.0-0.7); Eosinophils Percent Auto 2.4 % (0.9-7.0); Hematocrit 44.6 % (36.0-48.0); Immature Granulocytes Abs Auto 0.03 10^3/uL (0.00-0.03); Immature Granulocytes Pct Auto 0.3 % (0.0-0.5); Lymphocytes Absolute Auto 4.1 10^3/uL (1.2-3.8); Lymphocytes Percent Auto 41.2 % (20.5-60.0); Mean Corpuscular HGB Conc 33.6 g/dL (29.9-35.2); Mean Corpuscular Hemoglobin 28.6 pg (26.7-34.0); Mean Corpuscular Volume 85.1 fL (81.0-99.0); Mean Platelet Volume 9.1 fL (9.5-13.5); Monocytes Absolute Auto 0.8 10^3/uL (0.3-0.8); Monocytes Percent Auto 8.1 % (1.7-12.0); Neutrophils Absolute Auto 4.8 10^3/uL (1.4-6.5); Neutrophils Percent Auto 47.4 % (43.0-75.0); Platelet Count 227 10^3/uL (150-450); Red Blood Count 5.24 10^6/uL (4.20-5.40); Red Cell Distribution Width 13.5 % (11.0-15.0)
--- NOTE | 2024-09-28 18:18 | ED_ITS ---
HPI HPI - General Adult General Chief complaint: Arrhythmia/Palpitations Stated complaint: AFIB Time Seen by Provider: 09/28/24 17:16 Source: patient Mode of arrival: Wheelchair Limitations: no limitations History of Present Illness HPI narrative: 69-year-old female presents to the emergency department for palpitations and dizziness. She did not pass out. She feels like her heart is racing. She has a history of atrial fibrillation and atrial flutter and was here 3 days ago. 5 days ago she was taken off of her flecainide and Eliquis and was started on Cardizem. She has been taking it for the past 3 days. She talked to her industrial waste inspector in [place] 2 days ago who asked her to continue the current dose of Cardizem, 180 mg once a day. She was walking when this started. Related Data Home Medications ?Medication ?Instructions ?Recorded ?Confirmed alprazolam 0.25 mg tablet 0.25 mg PO DAILY PRN anxiety 07/05/24 09/28/24 ropinirole 0.25 mg tablet 0.25 mg PO BEDTIME 07/05/24 09/28/24 sertraline 100 mg tablet 100 mg PO Q24H 07/05/2409/15 diltiazem HCl 180 mg 180 mg PO Q24H 09/25/2409/15 capsule,extended release 24 hr Allergies Allergy/AdvReac Type Severity Reaction Status Date / Time No Known Drug Allergies Allergy Verified 09/28/24 17:24 Review of Systems ROS Narrative A ten point review of systems is negative except as noted above. PFSH PFSH Social History Little interest or pleasure in doing things: not at all Feeling down, depressed, or hopeless: not at all Exam Narrative Exam Narrative: Nurses note and vital signs reviewed and patient is not hypoxic. General: The patient appears well and in no apparent distress. Patient is resting comfortably on cart. Skin: Warm, dry, no pallor noted. There is no rash noted. Head: Normocephalic, atraumatic Eye: Normal conjunctiva, no drainage Ears, Nose, Mouth, and Throat: oral mucosa is moist. Nares patent. Cardiovascular: Regular Rate and Rhythm, tachycardic Respiratory: Patient is in no distress, no accessory muscle use, lungs are clear to auscultation, no wheezing, rales or rhonchi Back: non-tender GI: Soft and nontender Musculoskeletal: The patient has no evidence of calf tenderness, no pitting edema, symmetrical pulses noted bilaterally Neurological: A&O, normal speech Psychiatric: Cooperative Constitutional Vital Signs, click to edit/add: Last Vital Signs Temp 97.9 F 09/28/24 17:24 Pulse 160 H 09/28/24 17:24 Resp 18 09/28/24 17:24 BP 146/118 H 09/28/24 17:24 Pulse Ox 96 09/28/24 17:24 O2 Del Method Room Air 09/28/24 17:24 Course Vital Signs Vital signs: Vital Signs Temperature 97.9 F 09/28/24 17:24 Pulse Rate 160 H 09/28/24 17:24 Respiratory Rate 18 09/28/24 17:24 Blood Pressure 146/118 H 09/28/24 17:24 Pulse Oximetry 96 09/28/24 17:24 Oxygen Delivery Method Room Air 09/28/24 17:24 Temperature 97.9 F 09/28/24 17:24 Pulse Rate 160 H 09/28/24 17:24 Respiratory Rate 18 09/28/24 17:24 Blood Pressure 146/118 H 09/28/24 17:24 Pulse Oximetry 96 09/28/24 17:24 Oxygen Delivery Method Room Air 09/28/24 17:24 Medical Decision Making MDM Narrative Medical decision making narrative: I spoke to Dr. Roberts on-call for Dr. Domingo who recommends that the patient call the office in the morning to get into their atrial fibrillation clinic. He recommends continuing her current medications now. She remains in sinus rhythm and is able to be discharged home. Treatment diagnosis and follow-up were discussed with the patient. Differential Diagnosis Differential Diagnosis: Atrial flutter, atrial fibrillation, palpitations Lab Data Lab results reviewed: Yes I reviewed the patient's lab results Labs: Lab Results 09/28/24 Range/Units 17:30 WBC 10.0 (4.0-11.0) 10^3/uL RBC 5.24 (4.20-5.40) 10^6/uL Hgb 15.0 (12.0-16.0) g/dL Hct 44.6 (36.0-48.0) % MCV 85.1 (81.0-99.0) fL MCH 28.6 (26.7-34.0) pg MCHC 33.6 (29.9-35.2) g/dL RDW 13.5 (11.0-15.0) % Plt Count 227 (150-450) 10^3/uL MPV 9.1 L (9.5-13.5) fL Neut % (Auto) 47.4 (43.0-75.0) % Lymph % (Auto) 41.2 (20.5-60.0) % [place] % (Auto) 8.1 (1.7-12.0) % Eos % (Auto) 2.4 (0.9-7.0) % Baso % (Auto) 0.6 (0.2-2.0) % Neut # (Auto) 4.8 (1.4-6.5) 10^3/uL Lymph # (Auto) 4.1 H (1.2-3.8) 10^3/uL [place] # (Auto) 0.8 (0.3-0.8) 10^3/uL Eos # (Auto) 0.2 (0.0-0.7) 10^3/uL Baso # (Auto) 0.1 (0.0-0.1) 10^3/uL Abs Immat Gran (auto) 0.03 (0.00-0.03) 10^3/uL Imm/Tot Granulo (auto) 0.3 (0.0-0.5) % Sodium 136 (136-145) mmol/L Potassium 3.7 (3.5-5.1) mmol/L Chloride 100 (98-107) mmol/L Carbon Dioxide 25.9 (21.0-32.0) mmol/L Anion Gap 13.8 BUN 13.0 (7.0-18.0) mg/dL Creatinine 1.14 H (0.55-1.02) mg/dL Est GFR ( Amer) 57 L (>=60 mL/min/1.73m^2) Est GFR (Non-Af Amer) 47 L (>=60 mL/min/1.73m^2) BUN/Creatinine Ratio 11.4 Glucose 112 H (74-106) mg/dL Calcium 9.5 (8.5-10.1) mg/dL Magnesium 2.0 (1.8-2.4) mg/dL Troponin I High Sens 8.9 (4.0-51.3) pg/mL ECG Data Attestation: I personally reviewed and interpreted this ECG as follows: (First EKG on my interpretation shows tachycardia with regular rate, likely atrial flutter. Second EKG shows sinus rhythm with a rate of 85 and no acute change) Discharge Plan Discharge Chief Complaint: Arrhythmia/Palpitations Clinical Impression: Atrial flutter Patient Disposition: Home, Self-Care Time of Disposition Decision: 18:17 Condition: Good Mode of Transportation: Private Vehicle Prescriptions / Home Meds: No Action diltiazem HCl 180 mg capsule,extended release 24hr 180 mg PO Q24H alprazolam 0.25 mg tablet 0.25 mg PO DAILY PRN (Reason: anxiety) sertraline 100 mg tablet 100 mg PO Q24H ropinirole 0.25 mg tablet 0.25 mg PO BEDTIME Print Language: [place] Citizen Instructions: Atrial Flutter (ED) Additional Instructions: Per Dr. Roberts, call the office of Dr. Domingo in the morning for referral to the atrial fibrillation clinic. Continue your current medications. Referrals: LE SAU[facility] [Primary Care Provider, [employer]] - 1 week
[2024-09-28 18:27] LABS: Anion Gap 13.8; BUN Creatinine Ratio 11.4; Calcium 9.5 mg/dL (8.5-10.1); Carbon Dioxide 25.9 mmol/L (21.0-32.0); Chloride 100 mmol/L (98-107); Estimated GFR (African America 57 (>=60 mL/min/1.73m^2); Estimated GFR (Non-African Ame 47 (>=60 mL/min/1.73m^2); Glucose 112 mg/dL (74-106); Potassium 3.7 mmol/L (3.5-5.1); Sodium 136 mmol/L (136-145); Troponin I High Sensitivity 8.9 pg/mL (4.0-51.3)
== END 2024-09-28 18:59 | disposition home or self-care (01) ==
PROVIDERS: Emergency Provider Emergency Medicine; PCP Nurse Practitioner
DX: I48.92 Unspecified atrial flutter (principal); I48.91 Unspecified atrial fibrillation; Z79.899 Other long term (current) drug therapy
CPT/HCPCS: 36415; 80048; 83735; 84484; 85025; 93005; 96374; 99285

== ENCOUNTER 2025-02-18 09:14 | Emergency (ER) | payer MEDICARE, OTHER, SELFPAY ==
[2025-02-18] VITALS (28 sets, daily range): BP systolic 108–161; BP diastolic 78–106; PULSE 67–179; TEMP 37.1; O2SAT 94–98; BMI 47.4
--- NOTE | 2025-02-18 09:21 | ECG_ITS ---
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 Measurements Intervals [place] Rate: 170 P: -99762 MT: -33362 QRS: 52 QRSD: 82 T: -62 QT: 266 QTc: 358 Interpretive Statements SUPRAVENTRICULAR TACHYCARDIA [address] depression, possible subendocardial injury 4564 Twave abnormality, possible lateral ischemia 4664 Twave abnormality, possible inferior ischemia 9150 abnormal ECG Compared to ECG 09/28/2024 17:31:44 ST (T wave) deviation now present Possible ischemia now present Sinus rhythm no longer present Electronically Signed On 02-18-2025 11:12:41 EDT by NICK RUBIN M.D.
--- NOTE | 2025-02-18 09:21 | XR_ITS ---
[facility] [place] [id number] Patient Name: KEELY CHOPRA MRN: [id number] date: 1955 Sex: F Assigned Patient Location: ED.MAIN Current Patient Location: ED.MAIN Accession/Order Number: [id number] Exam Date: 02/18/2025 09:38 Report Date: 02/18/2025 09:46 At the request of: YAKOV WHYTE MD Procedure: XR chest 1V Single view chest: CLINICAL HISTORY: sob COMPARISON: Chest 09/25/2024 FINDINGS: The heart is normal in size. The lungs are clear. The pulmonary vasculature is normal. Mediastinum and hilar regions are unremarkable. No pleural effusions are seen. Visualized bones are intact. XR/XR chest 1V IMPRESSION: NO ACUTE PROCESS. Impression dictated by: Daniel Rock Jr., D.O. 02/18/2025 9:46 AM Dictation Location: [place] [id number] Electronically authenticated by: [id number] Y Date: 02/18/2025 09:46
--- OUTSIDE RECORDS SUMMARY | 2025-02-18 09:23 | XMS_ITS | CCD ---
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 Name Role Phone MEL, DR JOY Benton Consulting Unavailable MEL, DR JOY Benton Attending Unavailable MEL, DR JOY Benton Admitting Unavailable MEL, DR JOY Benton Primary Care Unavailable [place], DR YOSSI Pineda Consulting Unavailable MEL, DR JOY Benton Primary Care Unavailable LEAL, DR JOY Benton Consulting Unavailable MEL, DR JOY Benton Attending Unavailable MEL, DR JOY Benton Admitting Unavailable Unavailable Primary Care Provider UnavailALECIA Syed Attending Unavailable ALECIA ORTEZ Attending Unavailable ALECIA ORTEZ Attending Unavailable ALECIA ORTEZ Attending Unavailable Cristiane ORE MIXER-CLe Primary Care Provider [phone] Mahendra Garcia MD Admit Provider [phone] Christina Julien MD Attending Provider [phone] Rigoberto Alfaro DO Emergency Provider UnaLe Solis Primary Care Unavailable Rigoberto Alfaro Admitting Unavailable Rigoberto Alfaro Attending Unavailable Jayashree Chavarria Consulting Unavailable Christina Julien Attending Unavailable Mahendra Garcia Admitting Unavailable Le Huitron Primary Care Unavailable Disha Harp Consulting Unavailable Jose Grant Consulting Unavailable Wilson Sales Consulting Unavail able Troy Vasqeuz Consulting Unavailable Mynor Crain Consulting Unavailab Leah Garcia Consulting Unavailable Ivon Cueto Consulting Unavailable Shereen Owens Consulting Unavailab Camryn Paredes Consulting Unavailable Anya Gonzalez Consulting Unavailable Cristiane YEH-Le PRESCOTT Primary Care Provider [phone] Le Huitron CNP Primary Care Provider TROY VASQUEZ Attending Unavailable CRISTIANE, LE Odonnell Primary Care Unavailable TROY VASQUEZ Referring Unavailable CRISTIANE, LE Odonnell Primary Care Unavailable JUAN DOMINGO Attending Unavailable CRISTIANE, LE ZIMMER Referring Unavailable CRISTIANE, LE ZIMMER Primary Care Unavailable CRISTIANE, LE ZIMMER Admitting Unavailable Cristiane, Le Odonnell Attending Unavailable Cristiane, Le Odonnell Admitting Unavailable Cristiane, Le Odonnell Attending Unavailable Cristiane, Le Odonnell Attending Unavailable Cristiane, Le Odonnell Attending Unavailable Cristiane, Le Odonnell Attending Unavailable Cristiane, Le Odonnell Attending Unavailable Cristiane, Le Odonnell Attending Unavailable Cristiane, Le Odonnell Attending Unavailable Cristiane, Le Odonnell Attending Unavailable Cristiane, Le Odonnell Attending Unavailable Cristiane, Le Odonnell Attending Unavailable Cristiane, Le Odonnell Admitting Unavailable Allergies Allergy Classification Reported Allergen(s) Allergy Type Date of Onset Reaction(s) Facility (3 sources) Azithromycin; Translations: [Zithromax] Drug Allergy 06-22-2015 [facility] Repository (9 sources) Azithromycin; Translations: [AZITHROMYCIN] Drug Allergy 06-15-2023 Unknown [facility] Work Phone: Medications Current Medications Medication Drug Class(es) Dates Sig (Normalized) Sig (Original) ALPRAZolam 0.25 mg oral tablet (4 sources) Benzodiazepine Start: 09-07-2023 take 1 tablet by mouth once daily as needed ALPRAZolam (XANAX) 0.25 MG tablet Take 1 (one) tablet (0.25 mg total) by mouth nightly as needed . 09/07/2023 Active apixaban 5 mg oral tablet (5 [...] times a day as needed 07/22/2022 Active dilTIAZem hydrochloride 60 mg oral tablet (3 sources) Calcium Channel Mira Start: 09-29-2024 take 1 tablet by mouth three times daily diltiazem (CARDIZEM) 60 MG tablet Take 1 (one) tablet (60 mg total) by mouth 3 (three) times a day . 270 tablet 1 09/29/2024 Active Start: 09-23-2024 End: 09-23-2025 take 1 capsule by mouth once daily diltiazem (Cardizem CD) 180 MG 24 hr capsule Take 1 (one) capsule (180 mg total) by mouth daily . 30 capsule 11 09/23/2024 09/29/2024 Discontinued (Prescriber Discontinued) flecainide acetate 50 mg oral tablet (3 [...] or underarms, 30 day supply 60 g 11 06/15/2023 Active metoprolol tartrate 25 mg oral tablet (4 sources) beta-Adrenergic Mira Start: 08-03-2024 End: 08-08-2024 take 0.5 tablet by mouth twice daily metoprolol tartrate (Lopressor) 25 mg tablet Take 0.5 tablets (12.5 mg) by mouth 2 times a day. 08/03/2024 08/08/2024 Discontinued (Therapy completed) Start: 07-06-2024 Metoprolol Tar trate 25 mg tablet Active 12.5 MG PO Twice daily 5 July 07, 2024 12:00am nabumetone 500 [...] (Therapy completed) rOPINIRole 0.25 mg oral tablet (12 sources) Nonergot Dopamine Agonist Start: 12-18-2022 take [...] 06/01/2023 Active sertraline 100 mg oral tablet (12 sources) Serotonin Reuptake Inhibitor Start: 12-01-2022 take [...] aftercare (2 sources) Drug 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; Translations: [[facility] (current) use of anticoagulants] Onset: 5 08-08-2024 [...] Test Name Value Interpretation Reference Range Facility [facility] 08-19-2025 Reminders Reminders From: Le Montano To: [facility] - Clinical; Sent: 01/03/2025 10:27:50 EDT Show up: 01/03/2025 10:28:00 EDT Subject: Ambulatory Reminder Due Date/Time: 01/04/2025 10:27:00 EDT cholesterol slightly elevated. otherwise labs look good. Results: Date Result Name Ind Value Ref Range 01/02/2025 8:56 WBC 5.0 E9/L (4.0 - 11.0) 01/02/2025 8:56 RBC 5.0 E12/L (4.3 - 5.9) 01/02/2025 8:56 HGB 13.9 gm/dL (12.0 - 16.0) 01/02/2025 8:56 Hct 41.0 % (34.0 - 46.0) 01/02/2025 8:56 MCV 82.6 fL (80.0 - 100.0) 01/02/2025 8:56 MCH 28.0 pg (27.0 - 34.0) 01/02/2025 8:56 MCHC 33.9 gm/dL (31.4 - 36.0) 01/02/2025 8:56 RDW (H) 14.6 % (10.9 - 14.2) 01/02/2025 8:56 Platelet 189.0 E9/L (150.0 - 500.0) 01/02/2025 8:56 MPV 7.7 fL (6.4 - 10.8) 01/02/2025 8:56 Neutro Auto 64.2 % (36.0 - 75.0) 01/02/2025 8:56 Lymph Auto 25.4 % (14.0 - 50.0) 01/02/2025 8:56 [place] Auto 7.7 % (4.0 - 14.0) 01/02/2025 8:56 Eos Auto 2.2 % (0.0 - 8.0) 01/02/2025 8:56 Basophil Auto 0.5 % (0.0 - 2.0) 01/02/2025 8:56 Neutro Absolute 3.2 E9/L (2.0 - 7.5) 01/02/2025 8:56 Lymph Absolute 1.3 E9/L (1.0 - 4.0) 01/02/2025 8:56 [place] Absolute 0.4 E9/L (0.2 - 1.0) 01/02/2025 8:56 Eos Absolute 0.1 E9/L (0.0 - 0.5) 01/02/2025 8:56 Basophil Absolute 0.0 E9/L (0.0 - 0.2) 01/02/2025 8:56 Glucose Lvl 99 mg/dL (55 - 199) 01/02/2025 8:56 BUN 15 mg/dL (5 - 21) 01/02/2025 8:56 Creatinine 0.8 mg/dL (0.5 - 1.3) 01/02/2025 8:56 eGFR 78 mL/min/1.73 m2 (>=59 - ) 01/02/2025 8:56 BUN/Creat Ratio 19 (10 - 20) 01/02/2025 8:56 Sodium Lvl 137 mmol/L (135 - 145) 01/02/2025 8:56 Potassium Lvl 4.1 mmol/L (3.5 - 5.3) 01/02/2025 8:56 Chloride 104 mmol/L (101 - 111) 01/02/2025 8:56 CO2 27 mmol/L (21 - 31) 01/02/2025 8:56 AGAP 10 mEq/L (6 - 16) 01/02/2025 8:56 Calcium Lvl 9.3 mg/dL (8.9 - 11.1) 01/02/2025 8:56 Alk Phos 72 Int._Unit/L (21 - 98) 01/02/2025 8:56 ALT 19 Int._Unit/L (6 - 46) 01/02/2025 8:56 AST 18 Int._Unit/L (5 - 43) 01/02/2025 8:56 Total Protein 7.2 gm/dL (6.0 - 7.8) 01/02/2025 8:56 Albumin Lvl 4.2 gm/dL (3.3 - 5.0) 01/02/2025 8:56 Globulin 3.0 gm/dL (1.4 - 4.0) 01/02/2025 8:56 A/G Ratio 1.4 (1.1 - 2.2) 01/02/2025 8:56 Bili Total 0.5 mg/dL (0.0 - 1.1) 01/02/2025 8:56 Chol (H) 214 mg/dL (120 - 200) 01/02/2025 8:56 Trig 108 mg/dL ( - <=149) 01/02/2025 8:56 HDL 50 mg/dL 01/02/2025 8:56 LDL Direct (H) 148 mg/dL ( - <=129) 01/02/2025 8:56 VLDL 22 mg/dL (7 - 40) 01/02/2025 8:56 TSH 0.98 mcIU/mL (0.34 - 5.60) left message to return our call, to relay below message Patient returns call and verbalizes understanding. Normal [facility] Ambulatory Visit Summaryon 0 01-02-2025 Ambulatory Visit Summary Ambulatory Visit Summary KEELY CHOPRA :1955 Visit Date:01/02/2025 Ambulatory Visit Instructions Your Diagnosis Screening for hypercholesterolemia Fatigue Your Care Team Attending Physician - Le Montano Primary Care Physician - Le Montano This Is Your Medications List alprazolam (alprazolam 0.25 mg Tab) diltiazem (diltiazem 60 mg Tab) ropinirole (ropinirole 0.25 mg Tab) sertraline (sertraline 100 mg Tab) Procedures Performed Colonoscopy (05/18/2013), Appendectomy, Arthroscopy, Biopsy of breast, Cataracts, LEXI BSO - Total abdominal hysterectomy and bilateral salpingo-oophorectomy. Discharge Vitals Temperature (Temporal Artery) 36.4 ???C Heart Rate (Peripheral) 68 Respiratory Rate 18 Blood Pressure 124/84 Height 153.0 cm Height 60 in Weight 118.5 kg Weight 261.247 lb BMI 50.62 What to do next Scheduled Follow-Up Appointments Thursday 8:20 AM EST With: Le Montano Where: [facility] Medicine [address] [address]- Medications What How Much When Instructions Unchanged alprazolam (alprazolam 0.25 mg Tab) 0.25 Milligram By Mouth Every day prn Dx F41.9 Unchanged diltiazem (diltiazem 60 mg Tab) TAKE 1 TABLET BY MOUTH THREE TIMES DAILY Unchanged ropinirole (ropinirole 0.25 mg Tab) 1 Tablets By Mouth 3 times a day Unchanged sertraline (sertraline 100 mg Tab) 100 Milligram By Mouth Every day Allergies Zithromax (Unknown) Problems Ongoing - Any problem that you are currently receiving treatment for. Adult BMI 50.0-59.9 kg/sq m Anxiety Blurry vision, right eye Congestion of nasal sinus Cough Facial swelling Fatigue Fluid level behind tympanic membrane of both ears H/o Lyme disease HTN - Hypertension Hx of migraines Insomnia Major depressive disorder, recurrent episode, moderate Morbid obesity Morbid obesity with BMI of 50.0-59.9, adult Neck pain Non-STEMI (non-ST elevated myocardial infarction) Restless leg syndrome Right knee pain Screening for hypercholesterolemia Sinusitis Swollen lymph nodes Ulcer of buccal mucosa Wheezing Historical - Any problem that you are no longer receiving treatment for. Lyme disease Migraine Morbid obesity Restless legs syndrome Patient Survey You may receive a survey via text or e-mail asking about your office visit. Please share your experience with us by completing your survey. We appreciate your feedback and thank you for choosing us for your care. Patient Portal You may access all of your results and other medical record information on our secure patient portal. If you are not signed up for this yet, please contact Health Information Management at [phone] to get signed up today. Language Information Language assistance services are available as needed. Normal [facility] CBC w/ Auto Diffon 5 Basophil Absolute 0.0 E9/L Normal 0.0-0.2 [facility] Comment on above: Performed By: #### 2 [id number] #### [facility] [address] [place] [address] Basophils/100 WBC (Bld) 0.5 % Normal 0.0-2.0 [facility] Comment on above: Performed By: #### 2 [id number] #### [facility] [address] [place] [address] Eos Absolute 0.1 E9/L Normal 0.0-0.5 [facility] Comment on above: Performed By: #### 2 [id number] #### [facility] [address] [place] [address] Eosinophils/100 WBC (Bld) 2.2 % Normal 0.0-8.0 [facility] Comment on above: Performed By: #### 2 [id number] #### [facility] [address] [place] [address] Erythrocyte distribution width (RBC) [Ratio] 14.6 % High 10.9-14.2 [facility] Comment on above: Performed By: #### 2 [id number] #### [facility] [address] [place] [address] Hematocrit (Bld) [Volume fraction] 41.0 % Normal 34.0-46.0 [facility] Comment on above: Performed By: #### 2 [id number] #### [facility] [address] [place] [address] Hemoglobin (Bld) [Mass/Vol] 13.9 g/dL Normal 12.0-16.0 [facility] Comment on above: Performed By: #### 2 [id number] #### [facility] [address] [place] [address] Lymph Absolute 1.3 E9/L Normal 1.0-4.0 [facility] Comment on above: Performed By: #### 2 [id number] #### [facility] [address] [place] [address] Lymphocytes/100 WBC (Bld) 25.4 % Normal 14.0-50.0 [facility] Comment on above: Performed By: #### 2 [id number] #### [facility] [address] [place] [address] MCH (RBC) [Entitic mass] 28.0 pg Normal 27.0-34.0 [facility] Comment on above: Performed By: #### 2 [id number] #### [facility] [address] [place] [address] MCHC (RBC) [Mass/Vol] 33.9 g/dL Normal 31.4-36.0 [facility] Comment on above: Performed By: #### 2 [id number] #### [facility] [address] [place] [address] MCV (RBC) [Entitic vol] 82.6 fL Normal 80.0-100.0 [facility] Comment on above: Performed By: #### 2 [id number] #### [facility] [address] [place] [address] [place] Absolute 0.4 E9/L Normal 0.2-1.0 [facility] Comment on above: Performed By: #### 2 [id number] #### [facility] [address] [place] [address] Monocytes/100 WBC (Bld) 7.7 % Normal 4.0-14.0 [facility] Comment on above: Performed By: #### 2 [id number] #### [facility] [address] [place] [address] Neutro Absolute 3.2 E9/L Normal 2.0-7.5 [facility] Comment on above: Performed By: #### 2 [id number] #### [facility] [address] [place] [address] Neutro Auto 64.2 % Normal 36.0-75.0 [facility] Comment on above: Performed By: #### 2 684404 #### [facility] [address] [place] [address] Platelet 189.0 E9/L Normal 150.0-500. 0 [facility] Comment on above: Performed By: #### 2 [id number] #### [facility] [address] [place] [address] Platelet mean volume (Bld) [Entitic vol] 7.7 fL Normal 6.4-10.8 [facility] Comment on above: Performed By: #### 2 [id number] #### [facility] [address] [place] [address] RBC 5.0 E12/L Normal 4.3-5.9 [facility] Comment on above: Performed By: #### 2 [id number] #### [facility] [address] [place] [address] WBC 5.0 E9/L Normal 4.0-11.0 [facility] Comment on above: Performed By: #### 2 [id number] #### [facility] [address] [place] [address] CMPon 01-02-2025 Albumin [Mass/Vol] 4.2 g/dL Normal 3.3-5.0 [facility] Comment on above: Performed By: #### 2 191119 #### [facility] [address] [place] [address] Albumin/Globulin [Mass ratio] 1.4 {ratio} Normal 1.1-2.2 [facility] Comment on above: Performed By: #### 2 [id number] #### [facility] [address] [place] [address] Alk Phos 72 Int._Unit/L Normal 21-98 [facility] Comment on above: Performed By: #### 2 407266 #### [facility] [address] [place] [address] ALT 19 Int._Unit/L Normal 6-46 [facility] Comment on above: Performed By: #### 2 837144 #### [facility] [address] [place] [address] Anion gap [Moles/Vol] 10 mmol/L Normal 6-16 [facility] Comment on above: Performed By: #### 2 624559 #### [facility] [address] [place] [address] AST 18 Int._Unit/L Normal 5-43 [facility] Comment on above: Performed By: #### 2 767470 #### [facility] [address] [place] [address] Bili Total 0.5 mg/dL Normal 0.0-1.1 [facility] Comment on above: Performed By: #### 2 738554 #### [facility] [address] [place] [address] BUN/Creat Ratio 19 No Units Normal 10-20 [facility] Comment on above: Performed By: #### 2 546693 #### [facility] [address] [place] [address] Calcium [Mass/Vol] 9.3 mg/dL Normal 8.9-11.1 [facility] Comment on above: Performed By: #### 2 906426 #### [facility] [address] [place] [address] Chloride [Moles/Vol] 104 mmol/L Normal 101-111 [facility] Comment on above: Performed By: #### 2 932689 #### [facility] [address] [place] [address] CO2 [Moles/Vol] 27 mmol/L Normal 21-31 [facility] Comment on above: Performed By: #### 2 628111 #### [facility] [address] [place] [address] Creatinine [Mass/Vol] 0.8 mg/dL Normal 0.5-1.3 [facility] Comment on above: Performed By: #### 2 550443 #### [facility] [address] [place] [address] Globulin (S) [Mass/Vol] 3.0 g/dL Normal 1.4-4.0 [facility] Comment on above: Performed By: #### 2 [id number] #### [facility] [address] [place] [address] Glucose [Mass/Vol] 99 mg/dL Normal 55-199 [facility] Comment on above: Performed By: #### 2 [id number] #### [facility] [address] [place] [address] Potassium [Moles/Vol] 4.1 mmol/L Normal 3.5-5.3 [facility] Comment on above: Performed By: #### 2 467986 #### [facility] [address] [place] [address] Protein [Mass/Vol] 7.2 g/dL Normal 6.0-7.8 [facility] Comment on above: Performed By: #### 2 975312 #### [facility] [address] [place] [address] Sodium [Moles/Vol] 137 mmol/L Normal 135-145 [facility] Comment on above: Performed By: #### 2 633324 #### [facility] [address] [place] [address] Urea nitrogen [Mass/Vol] 15 mg/dL Normal 5-21 [facility] Comment on above: Performed By: #### 2 672433 #### [facility] [address] [place] [address] Family Medicine Office/Clini c Noteon 01-02-2025 Family Medicine Office/Clinic Note Family Medicine Office/Clinic Note HPI Staff Please speak with patient about scheduling an AWV. Has refused in past. Keely is a 69 year old female presenting with 3 month f/u Weight management Semaglutide Sleeping well:Yes, 6-8 hours Chest pain:No Tremors:No Headaches:No Heart fluttering:No Blurred Vision:No Weight last visit: 261.02 lbs. Weight this visit: 261. she had a heart attack in June, she she has been really tired so she has not had the energy to even walk no refills needed today History of Present Illness pt presents today for follow up on weight. Review of Systems PHQ Score Initial Depression Screen Score: 0 SCORE Physical Exam Vitals & Measurements T: 36.4 ???C(Temporal Artery) HR: 68(Peripheral) RR: 18 BP: 124/84 SpO2: 99% HT: 60 in HT: 153.0 cm WT: 261.247 lb WT: 118.5 kg BMI: 50.62 General: alert, no acute distress ENMT: oral [...] in other specified circumstances) pt has been taking semaglutide from [facility]. will send refill. she is maintaining at this point. RTC 3 months 2. Screening for hypercholesterolemia (Z13.220: Encounter for screening for lipoid disorders) lipid panel orderd Ordered: CBC w/ Auto Diff Comprehensive Metabolic Panel Lab Specimen Collect 10624 Lipid Panel Thyroid Stimulating Hormone 3. Fatigue (R53.83: Other fatigue) since having AL pt states she is severely fatigued. will check CBC and TSH. has follow up with Cardiology next month. Ordered: CBC w/ Auto Diff Comprehensive Metabolic Panel Lipid Panel Thyroid Stimulating Hormone 4. Adult BMI 50.0-59.9 kg/sq m (Z68.43: Body mass index [BMI] 50.0-59.9, adult) BMI education given. order for semaglutide highest dose sent to [facility]. Ordered: brompheniramine/dextrometh orphan/PSE, 5 mL, Oral, QID for cough and congestion, 200 mL, Refill(s) 0, [facility], 153, cm, 08/30/24 11:22:00 EDT, Height/Length Dosing, 118.4, kg, 08/30/24 11:22:00 EDT, Weight Dosing cyclobenzaprine, 10 mg = 1 tab(s), Oral, TID, PRN for spasm, # 30 tab(s), Refills(s) 0, Pharmacy: [facility], 153, cm, 07/15/24 9:24:00 EST, Height/Length Dosing, 117.8, kg, 07/15/24 9:24:00 EST, Weight Dosing quetiapine, 25 mg = 1 tab(s), Oral, Bedtime, # 30 tab(s), Refills(s) 1, Pharmacy: [facility], 153, cm, 07/11/24 8:35:00 EST, Height/Length Dosing, 119.3, kg, 07/11/24 8:35:00 EST, Weight Dosing semaglutide, 0.25 mg, SubCutaneous, qWeek, # 4 EA, Refills(s) 0, Pharmacy: [facility], 153, cm, 07/11/24 8:35:00 EST, Height/Length Dosing, 119.3, kg, 07/11/24 8:35:00 EST, Weight Dosing 5. Non-smoker (Z78.9: Other specified health status) continue not smoking Ordered: brompheniramine/dextrometh orphan/PSE, 5 mL, Oral, QID for cough and congestion, 200 mL, Refill(s) 0, [facility], 153, cm, 08/30/24 11:22:00 EDT, Height/Length Dosing, 118.4, kg, 08/30/24 11:22:00 EDT, Weight Dosing cyclobenzaprine, 10 mg = 1 tab(s), Oral, TID, PRN for spasm, # 30 tab(s), Refills(s) 0, Pharmacy: [facility], 153, cm, 07/15/24 9:24:00 EST, Height/Length Dosing, 117.8, kg, 07/15/24 9:24:00 EST, Weight Dosing quetiapine, 25 mg = 1 tab(s), Oral, Bedtime, # 30 tab(s), Refills(s) 1, Pharmacy: [facility], 153, cm, 07/11/24 8:35:00 EST, Height/Length Dosing, 119.3, kg, 07/11/24 8:35:00 EST, Weight Dosing semaglutide, 0.25 mg, SubCutaneous, qWeek, # 4 EA, Refills(s) 0, Pharmacy: [facility], 153, cm, 07/11/24 8:35:00 EST, Height/Length Dosing, 119.3, kg, 07/11/24 8:35:00 EST, Weight Dosing Orders: ondansetron, 4 mg = 1 tab(s), Oral, q6hr, PRN Nausea/Vomiting, # 20 tab(s), Refills(s) 0, Pharmacy: [facility], 153, cm, 07/15/24 9:24:00 EST, Height/Length Dosing, 117.8, kg, 07/15/24 9:24:00 EST, Weight Dosing Follow-up No qualifying data available Problem List/Past Medical History Ongoing Adult BMI 50.0-59.9 kg/sq m Anxiety Blurry vision, right eye Congestion of nasal sinus Cough Facial swelling Fatigue Fluid level behind tympanic membrane of both ears H/o Lyme disease HTN - Hypertension Hx of migraines Insomnia Major depressive disorder, recurrent episode, moderate Neck pain Non-STEMI (non-ST elevated myocardial infarction) Restless leg syndrome Right knee pain Screening for hypercholesterolemia Sinusitis Swollen lymph nodes Ulcer of buccal mucosa Wheezing Historical Lyme disease Migraine Morbid obesity Restless legs syndrome Procedure/Surgical History Col (more content not included)... Normal [facility] Comment on above: Result Comment: Elec tronically Signed By: Le Montano\.br\Date and Time Signed: 01/02/25 11:11 EDT Lipid Panelon 01-02-2025 Cholesterol [Mass/Vol] 214 mg/dL High 120-200 [facility] Comment on above: Performed By: #### 2 [id number] #### [facility] [address] [place] [address] Cholesterol in HDL [Mass/Vol] 50 mg/dL Invalid Interpretation Code [facility] Comment on above: Result Comment: '>= 60 LOW RISK' '<= 40 HIGH RISK' Performed By: #### 2 [id number] #### [facility] [address] [place] [address] Cholesterol in LDL [Mass/Vol] 148 mg/dL High <=129 [facility] Comment on above: Performed By: #### 2 [id number] #### [facility] [address] [place] [address] Cholesterol in VLDL [Mass/Vol] 22 mg/dL Normal 7-40 [facility] Comment on above: Performed By: #### 2 [id number] #### [facility] [address] [place] [address] Triglyceride [Mass/Vol] 108 mg/dL Normal <=149 [facility] Comment on above: Performed By: #### 2 [id number] #### [facility] [address] [place] [address] TSHon 01-02-2025 TSH Qn 0.98 m[IU]/L Normal 0.34-5.60 [facility] Comment on above: Performed By: #### 2 [id number] #### [facility] [address] [place] [address] eGFRon 01-02-2025 eGFR 78 mL/min/1.73 m2 Normal >=59 [facility] Comment on above: Performed By: #### 1 [id number] #### [facility] [address] [place] [address] ECG 12 Leadon 09-23-2024 Sinus Rhythm Low voltage in precordial leads. -Nonspecific T-abnormality. [facility] ECG 12-LEADon 09-23-2024 ECG 12-LEAD Sinus Rhythm Low voltage in precordial leads. -Nonspecific T-abnormality. Normal [facility] Ambulatory Family Medicine Office/Clini c Noteon 08-30-2024 Family Medicine Office/Clinic Note Family Medicine Office/Clinic Note HPI Staff Please speak with patient about scheduling an AWV. Keely is a 69 year old female presenting [...] cough and congestion, 200 mL, Refill(s) 0, [facility], 153, cm, 08/30/24 11:22:00 EDT, Height/Length Dosing, 118.4, kg, 08/30/24 11:22:00 EDT, Weight Dosing doxycycline, 100 mg = 1 cap(s), Oral, q12hr, X 7 day(s), # 14 cap(s), Refills(s) 0, Pharmacy: [facility], 153, cm, 08/30/24 11:22:00 EDT, Height/Length [...] Screening Negative 3352F Influenza Type A&B POC 15686 Most recent diastolic blood pressure <80 mm Hg 3078F Patient screen for fall risk: no falls in last year or 1 fall with no injury in last year 1101F Systolic BP <130 mm Hg (Most Recent) 3074F 3. Congestion of nasal sinus (R09.81: Nasal congestion) bromfed sent Ordered: brompheniramine/dextrometh orphan/PSE, 5 mL, Oral, QID for cough and congestion, 200 mL, Refill(s) 0, [facility], 153, cm, 08/30/24 11:22:00 EDT, Height/Length Dosing, 118.4, kg, 08/30/24 11:22:00 EDT, Weight Dosing doxycycline, 100 mg = 1 cap(s), Oral, q12hr, X 7 day(s), # 14 cap(s), Refills(s) 0, Pharmacy: [facility], 153, cm, 08/30/24 11:22:00 EDT, Height/Length [...] cough and congestion, 200 mL, Refill(s) 0, [facility], 153, cm, 08/30/24 11:22:00 EDT, Height/Length Dosing, 118.4, kg, 08/30/24 11:22:00 EDT, Weight Dosing doxycycline, 100 mg = 1 cap(s), Oral, q12hr, X 7 day(s), # 14 cap(s), Refills(s) 0, Pharmacy: [facility], 153, cm, 08/30/24 11:22:00 EDT, Height/Length [...] 1036F Depressi (more content not included)... Normal [facility] Comment on above: Result [...] 8:20 AM EDT With: Le Montano Where: [address] [address]- Medications What How Much When Why Instructions New alprazolam (alprazolam 0.25 mg Tab) 0.25 Milligram By Mouth Every day prn Dx F41.9 Pickup at [facility] Unchanged apixaban (Eliquis 5 mg oral [...] Milligram By Mouth Every day Pharmacy Information [facility]: [address] [place], [place] [id number] [phone] Allergies Zithromax (Unknown) Problems Ongoing - Any [...] choosing us for your care. Normal [facility] Family Medicine Office/Clini c Noteon 07-15-2024 Family [...] spasm, # 30 tab(s), Refills(s) 0, Pharmacy: [facility], 153, cm, 07/15/24 9:24:00 EST, Height/Length Dosing, 117.8, kg, 07/15/24 9:24:00 EST, Weight Dosing methylPREDNISolone, = 1 packet(s), Oral, As Directed, as directed on package labeling, X 6 day(s), # 21 tab(s), Refills(s) 0, Pharmacy: [facility], 153, cm, 07/15/24 9:24:00 EST, Height/Length Dosing, 117.8, kg, 07/15/24 9:24:00 EST, Weight Dosing 2. Adult BMI 50.0-59.9 kg/sq m (Z68.43: Body mass index [BMI] 50.0-59.9, adult) BMI education Ordered: cyclobenzaprine, 10 mg = 1 tab(s), Oral, TID, PRN for spasm, # 30 tab(s), Refills(s) 0, Pharmacy: [facility], 153, cm, 07/15/24 9:24:00 EST, Height/Length Dosing, 117.8, kg, 07/15/24 9:24:00 EST, Weight Dosing methylPREDNISolone, = 1 packet(s), Oral, As Directed, as directed on package labeling, X 6 day(s), # 21 tab(s), Refills(s) 0, Pharmacy: [facility], 153, cm, 07/15/24 9:24:00 EST, Height/Length Dosing, 117.8, kg, 07/15/24 9:24:00 EST, Weight Dosing 3. Non-smoker (Z78.9: Other specified health status) continue not smoking Ordered: cyclobenzaprine, 10 mg = 1 tab(s), Oral, TID, PRN for spasm, # 30 tab(s), Refills(s) 0, Pharmacy: [facility], 153, cm, 07/15/24 9:24:00 EST, Height/Length Dosing, 117.8, kg, 07/15/24 9:24:00 EST, Weight Dosing methylPREDNISolone, = 1 packet(s), Oral, As Directed, as directed on package labeling, X 6 day(s), # 21 tab(s), Refills(s) 0, Pharmacy: [facility], 153, cm, 07/15/24 9:24:00 EST, Height/Length Dosing, 117.8, kg, 07/15/24 9:24:00 EST, Weight Dosing Orders: alprazolam, 0.25 mg, Oral, Daily, prn Dx F41.9, # 30 tab(s), Refills(s) 0, Pharmacy: [facility], 153, cm, 07/15/24 9:24:00 EST, Height/Length Dosing, 117.8, kg, 07/15/24 9:24:00 EST, Weight Dosing alprazolam, 0.25 mg, Oral, Daily, prn Dx F41.9, # 30 tab(s), Refills(s) 0, Pharmacy: [id number], 153, cm, 09/02/23 8:30:00 EDT, Height/Length Dosing, [...] mg Tab (more content not included)... Normal [facility] Comment on above: Result [...] 8:20 AM EDT With: Le Montano Where: [place] [id number]- Medications What How Much When Instructions Unchanged [...] choosing us for your care. Rita [facility] Family Medicine Office/Clini c Noteon 07-11-2024 Family Medicine Office/Clinic Note Family Medicine Office/Clinic Note [facility] Staff Keely is a 68 year old female presenting for 3 month follow up Weight management: Semaglutide Sleeping well:Yes, 6-8 hours Chest pain:No Tremors:No Headaches:No Heart fluttering:No Blurred Vision:No Beginning weight: 259.16 Previous weight: 270 Today's weight: 263 Questions/Concerns: doing well no concerns ER followup: Hospital: [facility] Visit date: 07/05/24 Symptoms the patient presented with: Dizzy, lightheaded, jaw pain, heart palpations Symptom onset/injury onset: 07/05/24 Current concerns: [place] [facility] [place] cath started Metoprolol and Eliquis and d/c bisoprolol/HCTZ was discharged 07/07/24 Pt states she is feeling better just really tired. Has follow up with Cardiology 3/24/25 [facility] Onset: 2 weeks ago sinus pressure, nasal drainage and post nasal drip, sinus congestion, ears popping, denies fevers History of Present Illness pt presents today for 3 month follow up on semaglutide through [facility] Review of Systems PHQ Score Initial Depression [...] pt recently had non-STEMI was taken to [facility] and had heart cath. will [...] Bedtime, # 30 tab(s), Refills(s) 1, Pharmacy: [facility], 153, cm, 07/11/24 8:35:00 EST, Height/Length Dosing, 119.3, kg, 07/11/24 8:35:00 EST, Weight Dosing semaglutide, 0.25 mg, SubCutaneous, qWeek, # 4 EA, Refills(s) 0, Pharmacy: [facility], 153, cm, 07/11/24 8:35:00 EST, Height/Length Dosing, 119.3, kg, 07/11/24 8:35:00 EST, Weight Dosing 2. HTN - Hypertension (I10: Essential (primary) hypertension) BP at goal today Ordered: quetiapine, 25 mg = 1 tab(s), Oral, Bedtime, # 30 tab(s), Refills(s) 1, Pharmacy: [facility], 153, cm, 07/11/24 8:35:00 EST, Height/Length Dosing, 119.3, kg, 07/11/24 8:35:00 EST, Weight Dosing semaglutide, 0.25 mg, SubCutaneous, qWeek, # 4 EA, Refills(s) 0, Pharmacy: [facility], 153, cm, 07/11/24 8:35:00 EST, Height/Length [...] adult) pt has been taking semaglutide through [facility]. she recently had Non stermi and would like for me to order medication through pharmacy. not sure if they will cover it since she has another risk factor after having a AL Ordered: quetiapine, 25 mg = 1 tab(s), Oral, Bedtime, # 30 tab(s), Refills(s) 1, Pharmacy: [facility], 153, cm, 07/11/24 8:35:00 EST, Height/Length Dosing, 119.3, kg, 07/11/24 8:35:00 EST, Weight Dosing semaglutide, 0.25 mg, SubCutaneous, qWeek, # 4 EA, Refills(s) 0, Pharmacy: [facility], 153, cm, 07/11/24 8:35:00 EST, Height/Length Dosing, 119.3, kg, 07/11/24 8:35:00 EST, Weight Dosing 6. Non-smoker (Z78.9: Other specified health status) continue not smoking Ordered: quetiapine, 25 mg = 1 tab(s), Oral, Bedtime, # 30 tab(s), Refills(s) 1, Pharmacy: [facility], 153, cm, 07/11/24 8:35:00 EST, Height/Length Dosing, 119.3, kg, 07/11/24 8:35:00 EST, Weight Dosing semaglutide, 0.25 mg, SubCutaneous, qWeek, # 4 EA, Refills(s) 0, Pharmacy: [facility], 153, cm, 07/11/24 8:35:00 EST, Height/Length Dosing, 119.3, kg, 07/11/24 8:35:00 EST, Weight Dosing Orders: bisoprolol-hydrochlorothia zide, 1 tab(s), Oral, Daily, 90 tab(s), Refill(s) 4, [facility], 153, cm, 09/02/23 8:30:00 (more content not included)... Normal [facility] Comment on above: Result Comment: Elec tronically Signed By: Cristiane HER, Le Odonnell\.br\Date and Time Signed: 07/11/24 10:07 EST B-Type Natriuretic Peptideon 07-07-2024 Natriuretic peptide B (Bld) [Mass/Vol] 110.0 pg/mL High 5-100 [facility] Comment on above: Result Comment: PERF ORMED BY: [place] [address] PATHOLOGIST REVISING CLERK BEN MARISCAL M.D. Performed By: #### H S TROP, MG, CBC, BMP, LIPID #### [address] Basic Metabolic Panelon 06-19 Anion gap [Moles/Vol] 10.7 mmol/L Normal 6.0-15.0 [facility] Comment on above: Performed By: #### H S TROP, MG, CBC, BMP, LIPID #### [address] Calcium [Mass/Vol] 9.0 mg/dL Normal 8.6-10.3 [facility] Comment on above: Performed By: #### H S TROP, MG, CBC, BMP, LIPID #### [address] Chloride [Moles/Vol] 105 mmol/L Normal 98-107 [facility] Comment on above: Performed By: #### H S TROP, MG, CBC, BMP, LIPID #### [address] CO2 [Moles/Vol] 24.9 mmol/L Normal 21.0-31.0 [facility] Comment on above: Performed By: #### H S TROP, MG, CBC, BMP, LIPID #### [address] Creatinine [Mass/Vol] 0.86 mg/dL Normal 0.60-1.20 [facility] Comment on above: Performed By: #### H S TROP, MG, CBC, BMP, LIPID #### [address] Creatinine Clr Calc Pharmacy 74.97 Normal [facility] Comment on above: Result Comment: PERF ORMED BY: [place] [address] PATHOLOGIST REVISING CLERK BEN MARISCAL M.D. Performed By: #### H S TROP, MG, CBC, BMP, LIPID #### [address] GFR/1.73 sq M.predicted MDRD (S/P/Bld) [Vol rate/Area] mL/min/{1.73_m2} Normal [facility] Comment on above: Performed By: #### H S TROP, MG, CBC, BMP, LIPID #### [address] Glucose [Mass/Vol] 116 mg/dL High 70-100 [facility] Comment on above: Result Comment: [place] Glucose Reference Range is dependent on time and content of last meal. Glucose of more than 200 mg/dL in a nonstressed, ambulatory subject supports the diagnosis of Diabetes Mellitus. ADA recommended reference range Performed By: #### H S TROP, MG, CBC, BMP, LIPID #### [facility] [address] Potassium [Moles/Vol] 3.6 mmol/L Normal 3.5-5.1 [facility] Comment on above: Performed By: #### H S TROP, MG, CBC, BMP, LIPID #### [facility] [address] Sodium [Moles/Vol] 137 mmol/L Normal 136-145 [facility] Comment on above: Performed By: #### H S TROP, MG, CBC, BMP, LIPID #### [facility] [address] Urea nitrogen [Mass/Vol] 10 mg/dL Normal 7-25 [facility] Comment on above: Performed By: #### H S TROP, MG, CBC, BMP, LIPID #### [facility] [address] Basophils Auto (Bld) [#/Vol] Ordered By: Rigoberto Alfaro on 07-07-2024 Basophils (Bld) [#/Vol] Automated basophil count 0.0-0.2 [facility] Basophils/100 WBC Auto (Bld) Ordered By: Rigoberto Alfaro on 07-07-2024 Basophils/100 WBC (Bld) Automated basophil % . [facility] Calcium [Mass/volume] in Ser um or PlasmaOrdered By: Rigoberto Alfaro on 07-07-2024 Calcium [Mass/Vol] Calcium [Mass/volume ] in Serum or Plasma 8.6-10.3 [facility] Carbon dioxide, total [Moles /volume] in Serum or PlasmaOrdered By: Rigoberto Alfaro on 07-07-2024 CO2 [Moles/Vol] Carbon dioxide, tota l [Moles/volume] in Serum or Plasma 21.0-31.0 [facility] Chloride [Moles/volume] in S edouard or PlasmaOrdered By: Rigoberto Alfaro on 07-07-2024 Chloride [Moles/Vol] Chloride [Moles/vol ume] in Serum or Plasma 98-107 [facility] Complete Blood Count Auto Di ffon 07-07-2024 Basophils (Bld) [#/Vol] 0.0 10*3/uL Normal 0.0-0.2 [facility] Comment on above: Result Comment: PERF ORMED BY: [place] [address] PATHOLOGIST REVISING CLERK BEN MARISCAL M.D. Performed By: #### H S TROP, MG, CBC, BMP, LIPID #### [address] Basophils/100 WBC (Bld) 0.8 % Normal . [facility] Comment on above: Performed By: #### H S TROP, MG, CBC, BMP, LIPID #### [address] Eosinophils (Bld) [#/Vol] 0.2 10*3/uL Normal 0.0-0.45 [facility] Comment on above: Performed By: #### H S TROP, MG, CBC, BMP, LIPID #### [address] Eosinophils/100 WBC (Bld) 4.8 % Normal . [facility] Comment on above: Performed By: #### H S TROP, MG, CBC, BMP, LIPID #### [address] Erythrocyte distribution width (RBC) [Ratio] 14.0 % Normal 11.9-15.3 [facility] Comment on above: Performed By: #### H S TROP, MG, CBC, BMP, LIPID #### [address] Hematocrit (Bld) [Volume fraction] 38.7 % Normal 34.0-46.4 [facility] Comment on above: Performed By: #### H S TROP, MG, CBC, BMP, LIPID #### [address] Hemoglobin (Bld) [Mass/Vol] 13.2 g/dL Normal 11.8-15.4 [facility] Comment on above: Performed By: #### H S TROP, MG, CBC, BMP, LIPID #### [address] Lymphocytes (Bld) [#/Vol] 1.5 10*3/uL Normal 1.00-4.8 [facility] Comment on above: Performed By: #### H S TROP, MG, CBC, BMP, LIPID #### [address] Lymphocytes/100 WBC (Bld) 36.1 % Normal . [facility] Comment on above: Performed By: #### H S TROP, MG, CBC, BMP, LIPID #### [address] MCH (RBC) [Entitic mass] 28.5 pg Normal 24.7-34.3 [facility] Comment on above: Performed By: #### H S TROP, MG, CBC, BMP, LIPID #### [address] MCV (RBC) [Entitic vol] 83.6 fL Normal 80-100 [facility] Comment on above: Performed By: #### H S TROP, MG, CBC, BMP, LIPID #### [address] Mean Corpuscular HGB Conc 34.1 g/dL Normal 32.0-35.0 [facility] Comment on above: Performed By: #### H S TROP, MG, CBC, BMP, LIPID #### [address] Monocytes (Bld) [#/Vol] 0.4 10*3/uL Normal 0.0-0.8 [facility] Comment on above: Performed By: #### H S TROP, MG, CBC, BMP, LIPID #### [address] Monocytes/100 WBC (Bld) 16.84 % Normal 0.00-20.00 [facility] Comment on above: Performed By: #### H S TROP, MG, CBC, BMP, LIPID #### [address] Monocytes/100 WBC (Bld) 10.4 % Normal . [facility] Comment on above: Performed By: #### H S TROP, MG, CBC, BMP, LIPID #### [address] Neutrophils (Bld) [#/Vol] 2.0 10*3/uL Normal 1.8-7.7 [facility] Comment on above: Performed By: #### H S TROP, MG, CBC, BMP, LIPID #### [address] Neutrophils/100 WBC (Bld) 47.9 % Normal . [facility] Comment on above: Performed By: #### H S TROP, MG, CBC, BMP, LIPID #### [address] NRBC% 0.3 /100{WBC} Normal 0-0.5 [facility] Comment on above: Performed By: #### H S TROP, MG, CBC, BMP, LIPID #### [address] Platelet mean volume (Bld) [Entitic vol] 7.1 fL Normal 6.3-10.7 [facility] Comment on above: Performed By: #### H S TROP, MG, CBC, BMP, LIPID #### [address] Platelets (Bld) [#/Vol] 161 10*3/uL Normal 150-450 [facility] Comment on above: Performed By: #### H S TROP, MG, CBC, BMP, LIPID #### [address] RBC (Bld) [#/Vol] 4.63 10*6/uL Normal 3.60-5.00 [facility] Comment on above: Performed By: #### H S TROP, MG, CBC, BMP, LIPID #### [facility] [address] WBC (Bld) [#/Vol] 4.1 10*3/uL Normal 3.8-11.6 [facility] Comment on above: Performed By: #### H S TROP, MG, CBC, BMP, LIPID #### [address] Creatine Kinaseon 07-07-2024 CK [Catalytic activity/Vol] 299 U/L High 30-223 [facility] Comment on above: Performed By: #### H S TROP, MG, CBC, BMP, LIPID #### [address] Creatine kinase [Enzymatic a ctivity/volume] in Serum or PlasmaOrdered By: Rigoberto Alfaro on 07-07-2024 CK [Catalytic activity/Vol] Creatine kinase [Enzymatic activity/volume] in Serum or Plasma High 30-223 [facility] Creatinine [Mass/volume] in Serum or PlasmaOrdered By: Rigoberto Alfaro on 07-07-2024 Creatinine [Mass/Vol] Creatinine [Mass/v olume] in Serum or Plasma 0.60-1.20 [facility] ECG 12 lead ECGon 07-07-2024 ECG 12 lead ECG [facility] [address] Electrocardiograph Report Signed Patient: Keely Chopra MR#: [id number] : 1955 Acct:[id number] Age/Sex: 68 / F ADM Date: 07/07/24 Loc: ER Room: Type: [facility] ER Attending Dr: Ordering Provider: Rigoberto [...] sinus rhythm Confirmed by Rigoberto Alfaro DO ([id number]) on 07/07/2024 3:58:58 PM Referred By: Electronically Signed By: Rigoberto Alfaro DO Transcribed By: MUS Signed By Rigoberto Alfaro DO 1559 Normal [facility] Eosinophils Auto (Bld) [#/Vo l]Ordered By: Rigoberto Alfaro on 07-07-2024 Eosinophils (Bld) [#/Vol] Automated eosinophil count 0.0-0.45 [facility] Eosinophils/100 WBC Auto (Bl d)Ordered By: Rigoberto Alfaro on 07-07-2024 Eosinophils/100 WBC (Bld) Automated eosinophil % . [facility] Erythrocyte distribution wid th Auto (RBC) [Ratio]Ordered By: Rigoberto Alfaro on 07-07-2024 Erythrocyte distribution width (RBC) [Ratio] Erythrocyte distribution width [Ratio] by Automated count 11.9-15.3 [facility] Glucose [Mass/volume] in Ser um or PlasmaOrdered By: Rigoberto Alfaro on 07-07-2024 Glucose [Mass/Vol] Glucose [Mass/volume ] in Serum or Plasma High 70-100 [facility] Comment on above: ADA recommended refe rence rangeRandom Glucose Reference Range is dependent on time and content of last meal. Glucose of more than 200 mg/dL in a nonstressed, ambulatory subject supports the diagnosis of Diabetes Mellitus. Hematocrit Auto (Bld) [Volum e fraction]Ordered By: Rigoberto Alfaro on 07-07-2024 Hematocrit (Bld) [Volume fraction] Hematocrit [Volume Fraction] of Blood by Automated count 34.0-46.4 [facility] Hemoglobin [Mass/volume] in BloodOrdered By: Rigoberto Alfaro on 07-07-2024 Hemoglobin (Bld) [Mass/Vol] Hemoglobin [Mass/volume] in Blood 11.8-15.4 [facility] INR in Platelet poor plasma by Coagulation assayOrdered By: Rigoberto Alfaro on 07-07-2024 INR Coag (PPP) [Relative time] INR in Platelet poor plasma by Coagulation assay [facility] Comment on above: INR Therapeutic Rang [...] erythrocytes in Blood by Automated coun 3.8-11.6 [facility] Lymphocytes Auto (Bld) [#/Vo l]Ordered By: Rigoberto Alfaro on 07-07-2024 Lymphocytes (Bld) [#/Vol] Lymphocytes [#/volume] in Blood by Automated count 1.00-4.8 [facility] Lymphocytes/100 WBC Auto (Bl d)Ordered By: Rigoberto Alfaro on 07-07-2024 Lymphocytes/100 WBC (Bld) Lymphocytes/100 leukocytes in Blood by Automated count . [facility] MCH Auto (RBC) [Entitic mass ]Ordered By: Rigoberto Alfaro on 07-07-2024 MCH (RBC) [Entitic mass] MCH [Entitic mass] by Automated count 24.7-34.3 [facility] MCHC Auto (RBC) [Mass/Vol]Or dered By: Rigoberto Alfaro on 07-07-2024 MCHC (RBC) [Mass/Vol] MCHC [Mass/volume] by Automated count 32.0-35.0 [facility] MCV Auto (RBC) [Entitic vol] Ordered By: Rigoberto Alfaro on 07-07-2024 MCV (RBC) [Entitic vol] MCV [Entitic vol ume] by Automated count 80-100 [facility] Monocyte distribution width [Entitic volume] in Blood by AutomatedOrdered By: Rigoberto Alfaro on 07-07-2024 Monocyte distribution width Auto (Bld) [Entitic vol] Monocyte distribution width [Entitic volume] in Blood by Automated 0.00-20.00 [facility] Monocytes Auto (Bld) [#/Vol] Ordered By: Rigoberto Alfaro on 07-07-2024 Monocytes (Bld) [#/Vol] Automated blood monocyte count 0.0-0.8 [facility] Monocytes/100 WBC Auto (Bld) Ordered By: Rigoberto Alfaro on 07-07-2024 Monocytes/100 WBC (Bld) Automated monocyte % . [facility] Natriuretic peptide B [Mass/ Vol]Ordered By: Rigoberto Alfaro on 07-07-2024 Natriuretic peptide B (Bld) [Mass/Vol] BNP ser/plas High 5-100 [facility] Neutrophils Auto (Bld) [#/Vo l]Ordered By: Rigoberto Alfaro on 07-07-2024 Neutrophils (Bld) [#/Vol] Neutrophils [#/volume] in Blood by Automated count 1.8-7.7 [facility] Neutrophils/100 WBC Auto (Bl d)Ordered By: Rigoberto Alfaro on 07-07-2024 Neutrophils/100 WBC (Bld) Automated neutrophil % . [facility] No Panel InformationOrdered By: Rigoberto Alfaro on 07-07-2024 Estimated GFR (CKD-EPI) > 60.0 mL/Min [facility] Creatinine Clearance (Chem 74.97 [facility] Nucleated erythrocytes [Pres ence] in Blood by Automated countOrdered By: Rigoberto Alfaro on 07-07-2024 Nucleated RBC Auto Ql (Bld) Nucleated erythrocytes [Presence] in Blood by Automated count 0-0.5 [facility] Platelet mean volume Auto (B ld) [Entitic vol]Ordered By: Rigoberto Alfaro on 07-07-2024 Platelet mean volume (Bld) [Entitic vol] Platelet mean volume [Entitic volume] in Blood by Automated count 6.3-10.7 [facility] Platelets Auto (Bld) [#/Vol] Ordered By: Rigoberto Alfaro on 07-07-2024 Platelets (Bld) [#/Vol] Platelets [#/vol ume] in Blood by Automated count 150-450 [facility] Potassium [Moles/volume] in Serum or PlasmaOrdered By: Rigoberto Alfaro on 07-07-2024 Potassium [Moles/Vol] Potassium [Moles/v olume] in Serum or Plasma 3.5-5.1 [facility] Prothrombin Time INRon 07-07 INR Coag (PPP) [Relative time] 1.0 {INR} Normal [facility] Comment on above: [...] heart valves: 3 - 4.5 PERFORMED BY: [address] [place] [address] PATHOLOGIST REVISING CLERK BEN MARISCAL M.D. Performed By: #### H S TROP, MG, CBC, BMP, LIPID #### [facility] [address] PT Coag (PPP) [Time] 11.0 s Normal 9.0-12.9 [facility] Comment on above: Result Comment: A matocrit value greater than 55% may lead to inaccurate results in coagulation testing. Patients having hematocrit values >55% require a special collection tube for coagulation studies. Please contact the laboratory at [phone] for redraw instructions. Performed By: #### H S TROP, MG, CBC, BMP, LIPID #### [facility] [address] [place] [id number] [facility] Prothrombin time (PT)Ordered By: Rigoberto Alfaro on 07-07-2024 PT Coag (PPP) [Time] Prothrombin time (PT) 9.0- 12.9 [facility] Comment on above: A hematocrit value g reater than 55% may lead to inaccurate results in coagulation testing. Patients having hematocrit values >55% require a special collection tube for coagulation studies. Please contact the laboratory at [phone] for redraw instructions. RBC Auto (Bld) [#/Vol]Ordere d By: Rigoberto Alfaro on 07-07-2024 RBC (Bld) [#/Vol] Erythrocytes [#/volu me] in Blood by Automated count 3.60-5.00 [facility] Serum or plasma anion gap de terminationOrdered By: Rigoberto Alfaro on 07-07-2024 Anion gap [Moles/Vol] Serum or plasma an ion gap determination 6.0-15.0 [facility] Sodium [Moles/volume] in Ser um or PlasmaOrdered By: Rigoberto Alfaro on 07-07-2024 Sodium [Moles/Vol] Sodium [Moles/volume ] in Serum or Plasma 136-145 [facility] Troponin I High Sensitivityo n 07-07-2024 Troponin I High Sensitivity 146 Off scale high 0-15 [facility] Comment on above: Result Comment: Crit ical Result : Called to and read back by: KEM DUVAL at: 07/07/2024 10:24:21 by:JOSSY The Troponin units of report have been changed to meet the Chest Pain Accreditation requirement, element EC5.M1l2. Troponin units are changed from pg/ml to ng/L. Also, the decimal is removed and results are in whole numbers. PERFORMED BY: [place] [phone] PATHOLOGIST REVISING CLERK BEN MARISCAL M.D. Performed By: #### H S TROP, MG, CBC, BMP, LIPID #### [facility] [address] [place] [address] Troponin I High Sensitivity 158 Off scale high 0-15 [facility] Comment on above: Result Comment: Crit ical Result : Called to and read back by: KEM DUVAL at: 07/07/2024 08:00:55 by:JOSSY The Troponin units of report have been changed to meet the Chest Pain Accreditation requirement, element EC5.M1l2. Troponin units are changed from pg/ml to ng/L. Also, the decimal is removed and results are in whole numbers. PERFORMED BY: [place] [address] PATHOLOGIST REVISING CLERK BEN MARISCAL M.D. Performed By: #### H S TROP, MG, CBC, BMP, LIPID #### [facility] [address] [place] [id number] [facility] Troponin I.cardiac [Mass/vol ume] in Serum or Plasma by Detection limit <= 0.01 ng/Ordered By: Rigoberto Alfaro on 07-07-2024 Troponin I.cardiac DL <= 0.01 ng/mL [Mass/Vol] Troponin I.cardiac [Mass/volume] in Serum or Plasma by Detection limit <= 0.01 ng/ Critically high 0-15 [facility] Comment on above: Critical Result : Ca lled to and read back by: KEM DUVAL at: 07/07/2024 10:24:21 by:[email or web address] Troponin units of report have been changed to meet the Chest Pain Accreditation requirement, element EC5.M1l2. Troponin units are changed from pg/ml to ng/L. Also, the decimal is removed and results are in whole numbers. Urea nitrogen [Mass/volume] in Serum or PlasmaOrdered By: Rigoberot Alfaro on 07-07-2024 Urea nitrogen [Mass/Vol] Urea nitrogen [Mass/volume] in Serum or Plasma 12-09 [facility] WBC Auto (Bld) [#/Vol]Ordere d By: Rigoberto Alfaro on 07-07-2024 WBC (Bld) [#/Vol] Leukocytes [#/volume ] in Blood by Automated count 3.8-11.6 [facility] X-ray reportOrdered By: Rigoberto Lane on 07-07-2024 Study report [facility] [place] [address] [place], [place] [id number] XRay Report Signed Patient: Keely Chopra MR#: [id number] : 1955 Acct:[id number] Age/Sex: 68 / F ADM Date: 5 Loc: ER Room: Type: [facility] ER Attending Dr: Copies to: Rigoberto Alfaro [...] Shukri Lane M.D.07/07/2024 8:15 AM Dictation Location: RADIO-PC-23 Transcribed By: CARLOS 07/07/24814 Dictated By: Shukri Lane DO 07/07/24814 Signed By: 07/07/24 08 [facility] XR chest 2V*on 07-07-2024 XR chest 2V* [facility] [place] [address] [place] [address] XRay Report Signed Patient: Keely Chopra MR#: [id number] : 1955 Acct:[id number] Age/Sex: 68 / F ADM Date: 07/07/24 Loc: ER Room: Type: [facility] ER Attending Dr: Copies to: Rigoberto Alfaro [...] Shukri Lane M.D.07/07/2024 8:15 AM Dictation Location: RADIO-PC-23 Transcribed By: [facility] 07/07/2415 Dictated By: Shukri Lane DO 07/07/24814 Signed By: 07/07/24814 Normal [facility] Anti-Xa UF Heparinon 025 Anti-Xa UF Heparin 0.19 [IU]/mL Low 0.30-0.70 [facility] Comment on above: Result Comment: Use the aPTT protocol when triglycerides are > 800 mg/dL, total bilirubin is > 20 mg/dL and/or patient has received a DOAC, Fondaparinux or LMWH within 72 hours AND baseline anti-Xa level is > 0.7 units/mL PERFORMED BY: [place] [address] PATHOLOGIST REVISING CLERK BEN MARISCAL M.D. Performed By: #### H S TROP, MG, CBC, BMP, LIPID #### [address] Anti-Xa UF Heparin 0.31 [IU]/mL Normal 0.30-0.70 [facility] Comment on above: Result Comment: Use the aPTT protocol when triglycerides are > 800 mg/dL, total bilirubin is > 20 mg/dL and/or patient has received a DOAC, Fondaparinux or LMWH within 72 hours AND baseline anti-Xa level is > 0.7 units/mL PERFORMED BY: [place] [address] PATHOLOGIST REVISING CLERK BEN MARISCAL M.D. Performed By: #### H S TROP, MG, CBC, BMP, LIPID #### [address] Basic Metabolic Panelon 06-18 Anion gap [Moles/Vol] 10.5 mmol/L Normal 6.0-15.0 [facility] Comment on above: Performed By: #### H S TROP, MG, CBC, BMP, LIPID #### [address] Calcium [Mass/Vol] 9.3 mg/dL Normal 8.6-10.3 [facility] Comment on above: Performed By: #### H S TROP, MG, CBC, BMP, LIPID #### [place] [address] [place] Chloride [Moles/Vol] 103 mmol/L Normal 98-107 [facility] Comment on above: Performed By: #### H S TROP, MG, CBC, BMP, LIPID #### [facility] [address] CO2 [Moles/Vol] 26.5 mmol/L Normal 21.0-31.0 [facility] Comment on above: Performed By: #### H S TROP, MG, CBC, BMP, LIPID #### [facility] [address] Creatinine [Mass/Vol] 0.81 mg/dL Normal 0.60-1.20 [facility] Comment on above: Performed By: #### H S TROP, MG, CBC, BMP, LIPID #### [address] Creatinine Clr Calc Pharmacy 79.48 Normal [facility] Comment on above: Performed By: #### H S TROP, MG, CBC, BMP, LIPID #### [place] [address] [place] GFR/1.73 sq M.predicted MDRD (S/P/Bld) [Vol rate/Area] mL/min/{1.73_m2} Normal [facility] Comment on above: Performed By: #### H S TROP, MG, CBC, BMP, LIPID #### [address] Glucose [Mass/Vol] 98 mg/dL Normal 70-100 [facility] Comment on above: Result Comment: [place] Glucose Reference Range is dependent on time and content of last meal. Glucose of more than 200 mg/dL in a nonstressed, ambulatory subject supports the diagnosis of Diabetes Mellitus. ADA recommended reference range Performed By: #### H S TROP, MG, CBC, BMP, LIPID #### [address] Potassium [Moles/Vol] 4.0 mmol/L Normal 3.5-5.1 [facility] Comment on above: Performed By: #### H S TROP, MG, CBC, BMP, LIPID #### [place] [address] [place] Sodium [Moles/Vol] 136 mmol/L Normal 136-145 [facility] Comment on above: Performed By: #### H S TROP, MG, CBC, BMP, LIPID #### [facility] [address] Urea nitrogen [Mass/Vol] 10 mg/dL Normal 7-25 [facility] Comment on above: Performed By: #### H S TROP, MG, CBC, BMP, LIPID #### [facility] [address] Basophils Auto (Bld) [#/Vol] Ordered By: Akua Ellsworth on 07-06-2024 Basophils (Bld) [#/Vol] Automated basophil count 0.0-0.2 [facility] Basophils/100 WBC Auto (Bld) Ordered By: Akua Ellsworth on 07-06-2024 Basophils/100 WBC (Bld) Automated basophil % . [facility] Calcium [Mass/volume] in Ser um or PlasmaOrdered By: Akua Ellsworth on 07-06-2024 Calcium [Mass/Vol] Calcium [Mass/volume ] in Serum or Plasma 8.6-10.3 [facility] Carbon dioxide, total [Moles /volume] in Serum or PlasmaOrdered By: Akua Ellsworth on 07-06-2024 CO2 [Moles/Vol] Carbon dioxide, tota l [Moles/volume] in Serum or Plasma 21.0-31.0 [facility] Chloride [Moles/volume] in S edouard or PlasmaOrdered By: Akua Ellsworth on 07-06-2024 Chloride [Moles/Vol] Chloride [Moles/vol ume] in Serum or Plasma 98-107 [facility] Cholesterol [Mass/volume] in Serum or PlasmaOrdered By: Akua Ellsworth on 07-06-2024 Cholesterol [Mass/Vol] Cholesterol [Mass /volume] in Serum or Plasma 140-200 [facility] Comment on above: Chol less than 200 m g/dl low riskChol 201-239 mg/dl borderline riskChol 240 mg/dl and greater high risk Cholesterol in HDL [Mass/vol ume] in Serum or PlasmaOrdered By: Akua Ellsworth on 02-19-2025 Cholesterol in HDL [Mass/Vol] Serum or plasma high density lipoprotein (HDL) cholesterol measurement [facility] Comment on above: HDL CHOL ATP-III CLA SSIFICATION Cardiovascular RiskHDL > or equal to 60 mg/dL LOWHDL < 40 mg/dL HIGH Cholesterol in LDL Calc [Mas s/Vol]Ordered By: Akua Ellsworth on 07-06-2024 Cholesterol in LDL [Mass/Vol] Cholesterol in LDL [Mass/volume] in Serum or Plasma by calculation High 0-100 [facility] Comment on above: LDL ATP III CLASSIFI CATIONLDL less than 100 mg/dL OptimalLDL 100-129 mg/dL Near or above optimalLDL 130-159 mg/dL Borderline highLDL 160-189 mg/dL HighLDL greater than 189 mg/dL Very high Cholesterol in VLDL Calc [Ma ss/Vol]Ordered By: Akua Ellsworth on 07-06-2024 Cholesterol in VLDL [Mass/Vol] Cholesterol in VLDL [Mass/volume] in Serum or Plasma by calculation [facility] Complete Blood Count Auto Di ffon 07-06-2024 Basophils (Bld) [#/Vol] 0.0 10*3/uL Normal 0.0-0.2 [facility] Comment on above: Result Comment: PERF ORMED BY: [place] [address] PATHOLOGIST REVISING CLERK BEN MARISCAL M.D. Performed By: #### H S TROP, MG, CBC, BMP, LIPID #### [facility] [address] [place] [address] [place] Basophils/100 WBC (Bld) 0.5 % Normal . Juan thorpe [facility] Comment on above: Performed By: #### H S TROP, MG, CBC, BMP, LIPID #### [facility] [address] [place] [id number] [place] Eosinophils (Bld) [#/Vol] 0.1 10*3/uL Normal 0.0-0.45 [facility] Comment on above: Performed By: #### H S TROP, MG, CBC, BMP, LIPID #### [facility] [address] [place] [id number] [place] Eosinophils/100 WBC (Bld) 1.9 % Normal . [facility] Comment on above: Performed By: #### H S TROP, MG, CBC, BMP, LIPID #### [address] Erythrocyte distribution width (RBC) [Ratio] 13.9 % Normal 11.9-15.3 [facility] Comment on above: Performed By: #### H S TROP, MG, CBC, BMP, LIPID #### [address] Hematocrit (Bld) [Volume fraction] 36.8 % Normal 34.0-46.4 [facility] Comment on above: Performed By: #### H S TROP, MG, CBC, BMP, LIPID #### [address] Hemoglobin (Bld) [Mass/Vol] 12.9 g/dL Normal 11.8-15.4 [facility] Comment on above: Performed By: #### H S TROP, MG, CBC, BMP, LIPID #### [address] Lymphocytes (Bld) [#/Vol] 1.9 10*3/uL Normal 1.00-4.8 [facility] Comment on above: Performed By: #### H S TROP, MG, CBC, BMP, LIPID #### [address] Lymphocytes/100 WBC (Bld) 30.6 % Normal . [facility] Comment on above: Performed By: #### H S TROP, MG, CBC, BMP, LIPID #### [address] MCH (RBC) [Entitic mass] 28.9 pg Normal 24.7-34.3 [facility] Comment on above: Performed By: #### H S TROP, MG, CBC, BMP, LIPID #### [address] MCV (RBC) [Entitic vol] 82.4 fL Normal 80-100 [facility] Comment on above: Performed By: #### H S TROP, MG, CBC, BMP, LIPID #### [address] Mean Corpuscular HGB Conc 35.0 g/dL Normal 32.0-35.0 [facility] Comment on above: Performed By: #### H S TROP, MG, CBC, BMP, LIPID #### [address] Monocytes (Bld) [#/Vol] 0.5 10*3/uL Normal 0.0-0.8 [facility] Comment on above: Performed By: #### H S TROP, MG, CBC, BMP, LIPID #### [address] Monocytes/100 WBC (Bld) 8.2 % Normal . T ila [facility] Comment on above: Performed By: #### H S TROP, MG, CBC, BMP, LIPID #### [address] Neutrophils (Bld) [#/Vol] 3.6 10*3/uL Normal 1.8-7.7 [facility] Comment on above: Performed By: #### H S TROP, MG, CBC, BMP, LIPID #### [address] Neutrophils/100 WBC (Bld) 58.8 % Normal . [facility] Comment on above: Performed By: #### H S TROP, MG, CBC, BMP, LIPID #### [address] NRBC% 0.1 /100{WBC} Normal 0-0.5 [facility] Comment on above: Performed By: #### H S TROP, MG, CBC, BMP, LIPID #### [address] Platelet mean volume (Bld) [Entitic vol] 7.4 fL Normal 6.3-10.7 [facility] Comment on above: Performed By: #### H S TROP, MG, CBC, BMP, LIPID #### [address] [place] [address] [place] Platelets (Bld) [#/Vol] 168 10*3/uL Normal 150-450 [facility] Comment on above: Performed By: #### H S TROP, MG, CBC, BMP, LIPID #### [facility] [address] RBC (Bld) [#/Vol] 4.47 10*6/uL Normal 3.60-5.00 [facility] Comment on above: Performed By: #### H S TROP, MG, CBC, BMP, LIPID #### [facility] [address] WBC (Bld) [#/Vol] 6.1 10*3/uL Normal 3.8-11.6 [facility] Comment on above: Performed By: #### H S TROP, MG, CBC, BMP, LIPID #### [facility] [address] Creatinine [Mass/volume] in Serum or PlasmaOrdered By: Akua Ellsworth on 07-06-2024 Creatinine [Mass/Vol] Creatinine [Mass/v olume] in Serum or Plasma 0.60-1.20 [facility] ECG 12 lead ECGon 07-06-2024 ECG 12 lead ECG [facility] [place] [address] Electrocardiograph Report Signed Patient: Keely Chopra MR#: [id number] : 1955 Acct:[id number] Age/Sex: 68 / F ADM Date: 07/05/24 Loc: Room: [address] [place] [address] Type: ADM IN Attending Dr: Christina Julien [...] in Inferior leads Confirmed by Angel Gutierrez ([id number]) on 07/06/2024 2:54:36 PM Referred By: Electronically Signed By: Angel Gutierrez Transcribed By: MUS Signed By Angel Gutierrez MD 07/06/24 1454 Normal [facility] echo tran[facility]horacicon [facility] echo transthoracic [facility] [place] [address] [place] [address] Echocardiogram Signed Patient: Keely Chopra MR#: [id number] : 1955 Acct:[id number] Age/Sex: 68 / F ADM Date: 07/05/24 Loc: Room: [address] [place] [address] Type: ADM IN Attending Dr: Christina Julien MD Ordering Provider: Mahendra Garcia MD Date of Service: 07/06/24 [facility]: afib Copies to: MD Angel [...] systole: 3.0 mmHg Measurements from QLAB CI (): ED Mass (HM): LAEF (): 63.0 % BSA (): 2.1 m2 178.0 grams 2.5 l/min/m2 __ LEYDI (): LAVmax (): LAVmin (): 29.0 ml Pat Height (HM): 37.0 ml/m2 78.0 ml 157.0 cm __ Pat Weight (): 119.6 kg QLAB Heart Model EDV ()_phl: 159.0 ml EF ()_phl: 50.0 % ED Current ()_phl: 60.0 % ESV ()_phl: 79.0 ml HR (HM)_phl: 66.0 BPMES Current (HM)_phl: 30.0 % LV Length ED (HM)_phl: 93.0 mmSV (HM)_phl: 80.0 ml ED Default (HM)_phl: 60.0 % LV Length ES (HM)_phl: 73.0 mm ES Default (HM)_phl: 30.0 % Transcribed By: FRANTZ Performed At: 07/06/24 0976 Signed By: Angel Gutierrez MD 07/06/24 1440 Normal [facility] Eosinophils Auto (Bld) [#/Vo l]Ordered By: Akua Ellsworth on 07-06-2024 Eosinophils (Bld) [#/Vol] Automated eosinophil count 0.0-0.45 [facility] Eosinophils/100 WBC Auto (Bl d)Ordered By: Akua Ellsworth on 07-06-2024 Eosinophils/100 WBC (Bld) Automated eosinophil % . [facility] Erythrocyte distribution wid th Auto (RBC) [Ratio]Ordered By: Akua Ellsworth on 07-06-2024 Erythrocyte distribution width (RBC) [Ratio] Erythrocyte distribution width [Ratio] by Automated count 11.9-15.3 [facility] Glucose [Mass/volume] in Ser um or PlasmaOrdered By: Akua Ellsworth on 07-06-2024 Glucose [Mass/Vol] Glucose [Mass/volume ] in Serum or Plasma 70-100 [facility] Comment on above: ADA recommended refe rence rangeRandom Glucose Reference Range is dependent on time and content of last meal. Glucose of more than 200 mg/dL in a nonstressed, ambulatory subject supports the diagnosis of Diabetes Mellitus. Hematocrit Auto (Bld) [Volum e fraction]Ordered By: Akua Ellsworth on 07-06-2024 Hematocrit (Bld) [Volume fraction] Hematocrit [Volume Fraction] of Blood by Automated count 34.0-46.4 [facility] Hemoglobin [Mass/volume] in BloodOrdered By: Akua Ellsworth on 07-06-2024 Hemoglobin (Bld) [Mass/Vol] Hemoglobin [Mass/volume] in Blood 11.8-15.4 [facility] Heparin anti-Xa unfractionat edOrdered By: Akua Ellsworth on 07-06-2024 Heparin unfractionated Chromogenic method Qn (PPP) Heparin anti-Xa unfractionated Low 0.30-0.70 [facility] Comment on above: Use the aPTT [...] erythrocytes in Blood by Automated coun 3.8-11.6 [facility] Lipid Panelon 07-06-2024 Cholesterol [Mass/Vol] 196 mg/dL Normal 140-200 [facility] Comment on above: Result Comment: Chol less than 200 mg/dl low risk Chol 201-239 mg/dl borderline risk Chol 240 mg/dl and greater high risk Performed By: #### H S TROP, MG, CBC, BMP, LIPID #### [facility] [address] [place] [id number] [place] Cholesterol in HDL [Mass/Vol] 42 mg/dL Normal 23-92 [facility] Comment on above: Result Comment: HDL CHOL ATP-III CLASSIFICATION Cardiovascular Risk HDL > or equal to 60 mg/dL LOW HDL < 40 mg/dL HIGH Performed By: #### H S TROP, MG, CBC, BMP, LIPID #### [facility] [address] [place] [id number] [facility] Cholesterol.total/Awilda sterol in HDL [Mass ratio] 4.7 {ratio} Normal <5.0 [facility] Comment on above: Result Comment: PERF ORMED BY: [place] [address] PATHOLOGIST REVISING CLERK BEN MARISCAL M.D. Performed By: #### H S TROP, MG, CBC, BMP, LIPID #### [address] LDL Cholesterol,Calculated 129 mg/dL High 0-100 [facility] Comment on above: Result Comment: LDL ATP III CLASSIFICATION LDL less than 100 mg/dL Optimal LDL 100-129 mg/dL Near or above optimal LDL 130-159 mg/dL Borderline high LDL 160-189 mg/dL High LDL greater than 189 mg/dL Very high Performed By: #### H S TROP, MG, CBC, BMP, LIPID #### [address] Triglyceride w/Reflex 126 mg/dL Normal 0-149 [facility] Comment on above: Result Comment: TRIG ATP III CLASSIFICATION TRIG less than 150 mg/dL Normal TRIG 150-199 mg/dL Borderline high TRIG 200-500 mg/dL High TRIG greater than 500 mg/dL Very high Standard traceable to the Center for Disease Conrtrol and Prevention (CDC) test method. Performed By: #### H S TROP, MG, CBC, BMP, LIPID #### [address] VLDL CHOLESTEROL 25 mg/dL Normal [facility] Comment on above: Performed By: #### H S TROP, MG, CBC, BMP, LIPID #### [address] Lymphocytes Auto (Bld) [#/Vo l]Ordered By: Akua Ellsworth on 07-06-2024 Lymphocytes (Bld) [#/Vol] Lymphocytes [#/volume] in Blood by Automated count 1.00-4.8 [facility] Lymphocytes/100 WBC Auto (Bl d)Ordered By: Akua Ellsworth on 07-06-2024 Lymphocytes/100 WBC (Bld) Lymphocytes/100 leukocytes in Blood by Automated count . [facility] MCH Auto (RBC) [Entitic mass ]Ordered By: Akua Ellsworth on 07-06-2024 MCH (RBC) [Entitic mass] MCH [Entitic mass] by Automated count 24.7-34.3 [facility] MCHC Auto (RBC) [Mass/Vol]Or dered By: Akua Ellsworth on 07-06-2024 MCHC (RBC) [Mass/Vol] MCHC [Mass/volume] by Automated count 32.0-35.0 [facility] MCV Auto (RBC) [Entitic vol] Ordered By: Akua Ellsworth on 07-06-2024 MCV (RBC) [Entitic vol] MCV [Entitic vol ume] by Automated count 80-100 [facility] Magnesiumon 07-06-2024 Magnesium [Mass/Vol] 1.9 mg/dL Normal 1.9-2.7 [facility] Comment on above: Performed By: #### H S TROP, MG, CBC, BMP, LIPID #### [address] Magnesium [Mass/volume] in S edouard or PlasmaOrdered By: Akua Ellsworth on 07-06-2024 Magnesium [Mass/Vol] Magnesium [Mass/vol ume] in Serum or Plasma 1.9-2.7 [facility] Monocytes Auto (Bld) [#/Vol] Ordered By: Akua Ellsworth on 07-06-2024 Monocytes (Bld) [#/Vol] Automated blood monocyte count 0.0-0.8 [facility] Monocytes/100 WBC Auto (Bld) Ordered By: Akua Ellsworth on 07-06-2024 Monocytes/100 WBC (Bld) Automated monocyte % . [facility] Neutrophils Auto (Bld) [#/Vo l]Ordered By: Akua Ellsworth on 07-06-2024 Neutrophils (Bld) [#/Vol] Neutrophils [#/volume] in Blood by Automated count 1.8-7.7 [facility] Neutrophils/100 WBC Auto (Bl d)Ordered By: Akua Ellsworth on 07-06-2024 Neutrophils/100 WBC (Bld) Automated neutrophil % . [facility] No Panel InformationOrdered By: Akua Ellsworth on 07-06-2024 Estimated GFR (CKD-EPI) > 60.0 mL/Min [facility] Creatinine Clearance (Chem 79.48 [facility] Nucleated erythrocytes [Pres ence] in Blood by Automated countOrdered By: Akua Ellsworth on 07-06-2024 Nucleated RBC Auto Ql (Bld) Nucleated erythrocytes [Presence] in Blood by Automated count 0-0.5 [facility] Platelet mean volume Auto (B ld) [Entitic vol]Ordered By: Akua Ellsworth on 07-06-2024 Platelet mean volume (Bld) [Entitic vol] Platelet mean volume [Entitic volume] in Blood by Automated count 6.3-10.7 [facility] Platelets Auto (Bld) [#/Vol] Ordered By: Akua Ellsworth on 07-06-2024 Platelets (Bld) [#/Vol] Platelets [#/vol ume] in Blood by Automated count 150-450 [facility] Potassium [Moles/volume] in Serum or PlasmaOrdered By: Akua Ellsworth on 07-06-2024 Potassium [Moles/Vol] Potassium [Moles/v olume] in Serum or Plasma 3.5-5.1 [facility] RBC Auto (Bld) [#/Vol]Ordere d By: Akua Ellsworth on 07-06-2024 RBC (Bld) [#/Vol] Erythrocytes [#/volu me] in Blood by Automated count 3.60-5.00 [facility] Serum or plasma anion gap de terminationOrdered By: Akua Ellsworth on 07-06-2024 Anion gap [Moles/Vol] Serum or plasma an ion gap determination 6.0-15.0 [facility] Serum or plasma total choles terol/high density lipoprotein (HDL) cholesterol mass ratOrdered By: Akua Ellsworth on 07-06-2024 Cholesterol.total/Awilda sterol in HDL [Mass ratio] Serum or plasma total cholesterol/high density lipoprotein (HDL) cholesterol mass rat <5.0 [facility] Sodium [Moles/volume] in Ser um or PlasmaOrdered By: Akua Ellsworth on 07-06-2024 Sodium [Moles/Vol] Sodium [Moles/volume ] in Serum or Plasma 136-145 [facility] Triglyceride [Mass/volume] i n Serum or PlasmaOrdered By: Akua Ellsworth on 07-06-2024 Triglyceride [Mass/Vol] Triglyceride [Ma ss/volume] in Serum or Plasma 0-149 [facility] Comment on above: TRIG ATP III CLASSIF ICATIONTRIG less than 150 mg/dL NormalTRIG 150-199 mg/dL Borderline highTRIG 200-500 mg/dL High TRIG greater than 500 mg/dL Very highStandard traceable to the Center for Disease Conrtrol and Prevention (CDC) test method. Troponin I High Sensitivityo n 07-06-2024 Troponin I High Sensitivity 308 Off scale high 0-15 [facility] Comment on above: Result Comment: Crit ical Result : Called to and read back by: SILVER GRACIA at: 07/06/2024 11:31:26 by:JOSSY The Troponin units of report have been changed to meet the Chest Pain Accreditation requirement, element EC5.M1l2. Troponin units are changed from pg/ml to ng/L. Also, the decimal is removed and results are in whole numbers. PERFORMED BY: [place] [address] PATHOLOGIST REVISING CLERK BEN MARISCAL M.D. Performed By: #### H S TROP, MG, CBC, BMP, LIPID #### [facility] [address] [place] [id number] [place] Troponin I High Sensitivity 382 Off scale high 0-15 [facility] Comment on above: Result Comment: Crit ical Result : Called to and read back by: AKUA MCINTOSH at: 07/06/2024 08:28:04 by:[id number] The Troponin units of report have been changed to meet the Chest Pain Accreditation requirement, element EC5.M1l2. Troponin units are changed from pg/ml to ng/L. Also, the decimal is removed and results are in whole numbers. PERFORMED BY: [place] [address] PATHOLOGIST REVISING CLERK BEN MARISCAL M.D. Performed By: #### H S TROP, MG, CBC, BMP, LIPID #### [facility] [address] [place], [place] [id number] [place] Troponin I.cardiac [Mass/vol ume] in Serum or Plasma by Detection limit <= 0.01 ng/Ordered By: Emerald Baker on 07-06-2024 Troponin I.cardiac DL <= 0.01 ng/mL [Mass/Vol] Troponin I.cardiac [Mass/volume] in Serum or Plasma by Detection limit <= 0.01 ng/ Critically high 0-15 [facility] Comment on above: Critical Result : Ca lled to and read back by: SILVER GRACIA at: 07/06/2024 11:31:26 by:JOSSYThe Troponin units of report have been changed to meet the Chest Pain Accreditation requirement, element EC5.M1l2. Troponin units are changed from pg/ml to ng/L. Also, the decimal is removed and results are in whole numbers. Urea nitrogen [Mass/volume] in Serum or PlasmaOrdered By: Akua Ellsworth on 07-06-2024 Urea nitrogen [Mass/Vol] Urea nitrogen [Mass/volume] in Serum or Plasma 12-09 [facility] WBC Auto (Bld) [#/Vol]Ordere d By: Akua Ellsworth on 07-06-2024 WBC (Bld) [#/Vol] Leukocytes [#/volume ] in Blood by Automated count 3.8-11.6 [facility] Anti-Xa UF Heparinon 025 Anti-Xa UF Heparin 0.04 [IU]/mL Low 0.30-0.70 [facility] Comment on above: Result Comment: Use the aPTT protocol when triglycerides are > 800 mg/dL, total bilirubin is > 20 mg/dL and/or patient has received a DOAC, Fondaparinux or LMWH within 72 hours AND baseline anti-Xa level is > 0.7 units/mL PERFORMED BY: [place] [address] PATHOLOGIST REVISING CLERK BEN MARISCAL M.D. Performed By: #### H S TROP, MG, CBC, BMP, LIPID #### [place] [address] [place] ECG 12 lead ECGon 07-05-2024 ECG 12 lead ECG [facility] [address] Electrocardiograph Report Signed Patient: Keely Chopra MR#: [id number] : 1955 Acct:[id number] Age/Sex: 68 / F ADM Date: 07/05/24 Loc: Room: [address] [place] [address] Type: ADM IN Attending Dr: Christina Julien [...] previous ECGs available Confirmed by Angel Gutierrez ([id number]) on 07/06/2024 2:54:30 PM Referred By: Electronically Signed By: Angel Gutierrez Transcribed By: MUS Signed By Angel Gutierrez MD 07/06/24 1454 Normal [facility] INR in Platelet poor plasma by Coagulation assayOrdered By: Akua Ellsworth on 07-05-2024 INR Coag (PPP) [Relative time] INR in Platelet poor plasma by Coagulation assay [facility] Comment on above: INR Therapeutic Rang [...] [Time] 33.7 s Normal 25.1-36.5 [facility] Comment on above: Result Comment: A he matocrit value greater than 55% may lead to inaccurate results in coagulation testing. Patients having hematocrit values >55% require a special collection tube for coagulation studies. Please contact the laboratory at [phone] for redraw instructions. Performed By: #### H S TROP, MG, CBC, BMP, LIPID #### [facility] [address] [place] [address] Prothrombin Time INRon 02-18 -2025 INR Coag (PPP) [Relative time] 1.0 {INR} Normal [facility] Comment on above: [...] S TROP, MG, CBC, BMP, LIPID #### [facility] [address] PT Coag (PPP) [Time] 11.0 s Normal 9.0-12.9 [facility] Comment on above: Result Comment: A he matocrit value greater than 55% may lead to inaccurate results in coagulation testing. Patients having hematocrit values >55% require a special collection tube for coagulation studies. Please contact the laboratory at [phone] for redraw instructions. Performed By: #### H S TROP, MG, CBC, BMP, LIPID #### [facility] [address] [place] [id number] [facility] Prothrombin time (PT)Ordered By: Akua Ellsworth on 07-05-2024 PT Coag (PPP) [Time] Prothrombin time (PT) 9.0- 12.9 [facility] Comment on above: A hematocrit value g reater than 55% may lead to inaccurate results in coagulation testing. Patients having hematocrit values >55% require a special collection tube for coagulation studies. Please contact the laboratory at [phone] for redraw instructions. Troponin I High Sensitivityo n 07-05-2024 Troponin I High Sensitivity 422 Off scale high 0-15 [facility] Comment on above: Result Comment: Crit ical Result : Called to and read back by: NAHID CHANDRA at: 07/06/2024 01:10:46 by:IVON The Troponin units of report have been changed to meet the Chest Pain Accreditation requirement, element EC5.M1l2. Troponin units are changed from pg/ml to ng/L. Also, the decimal is removed and results are in whole numbers. PERFORMED BY: [facility] [id number] PATHOLOGIST REVISING CLERK BEN MARISCAL M.D. Performed By: #### H S TROP, MG, CBC, BMP, LIPID #### [place] [id number] [facility] aPTT in Platelet poor plasma by Coagulation assayOrdered By: Akua Ellsworth on 07-05-2024 aPTT Coag (PPP) [Time] Activated partial thromboplastin time (aPTT) in platelet poor plasma by coagulation a 25.1-36.5 [facility] Comment on above: A hematocrit value g reater than 55% may lead to inaccurate results in coagulation testing. Patients having hematocrit values >55% require a special collection tube for coagulation studies. Please contact the laboratory at [phone] for redraw instructions. Ambulatory Visit Summaryon 1 [...] 8:20 AM EST With: Le Montano Where: [place] [address]- Medications What How Much When Instructions Unchanged [...] for choosing us for your care. [facility] Family Medicine Office/Clini c Noteon 04-11-2024 Family [...] for 7 day(s), 14 tab(s), Refill(s) 0, [employer]72, 153, cm, 04/11/24 8:35:00 EST, Height/Length [...] virus vaccine, inactivated 02/25/2022 Recorded SARS-CoV-2 (COVID-19) mRNAMUL.[id number] 02/25/2022 Recorded SARSCoV2 mRNA(gielkuugs-vrjo-bkvmie ) vac 10/08/2021 Recorded influenza virus vaccine, inactivated 05/20/2021 Recorded SARS-CoV-2 (COVID-19) mRNA BNT-162b2 vax 02/14/2021 Recorded SARS-CoV-2 (COVID-19) mRNA BNT-162b2 vax 08/04/2020 Recorded SARS-CoV-2 (COVID-19) mRNA BNT-162b2 vax 07/14/2020 Recorded pneumococcal 13-valent vaccine 03/14/2020 Recorded influenza virus vaccine, inactivated 03/14/2020 Recorded zoster vaccine, inactivated 06/23/2019 Recorded influenza virus vaccine, inactivated 05/31/2019 Recorded zoster vaccine, inactivated 03/28/2019 Recorded Normal [facility] Comment on above: Result Comment: Elec tronically Signed By: Le Montano\Date and Time Signed: 04/11/24 12:35 EST No [...] Amount of lidocaine used: 0.3 cc [facility] Type of biopsy: carrington ential [...] yes Amount of lidocaine used: 0.5 cc [facility] CBC AUTO DIFFon 05-12-2022 BASO # 0.0 103/ul Normal 0.0-0.1 [facility] Comment on above: Performed By: #### C BC #### [facility] [address] [place] [address] Dr. Nuha Marinelli Basophils/100 WBC (Bld) 0.5 % Normal 0.2-2.0 [facility] Comment on above: Performed By: #### C BC #### [facility] [address] [address] [address] Nuha Marinelli EO # 0.2 103/ul Normal 0.0-0.7 [facility] Comment on above: Performed By: #### C BC #### [facility] [address] [place] [address] Dr. Nuha Marinelli Eosinophils/100 WBC (Bld) 3.3 % Normal 0.9-7.0 [facility] Comment on above: Performed By: #### C BC #### [facility] [address] [place] [address] Dr. Nuha Marinelli Erythrocyte distribution width (RBC) [Ratio] 13.6 % Normal 11.0-15.0 [facility] Comment on above: Performed By: #### C BC #### [facility] [address] [place] [address] Dr. Nuha Marinelli Hematocrit (Bld) [Volume fraction] 41.0 % Normal 36.0-48.0 [facility] Comment on above: Performed By: #### C BC #### [facility] [address] [place] [address] Dr. Nuha Marinelli Hemoglobin (Bld) [Mass/Vol] 13.6 g/dL Normal 12.0-16.0 [facility] Comment on above: Performed By: #### C BC #### [facility] [address] [place] [address] Dr. Nuha Marinelli IG # 0.03 10e3/ul Normal 0.00-0.03 [facility] Comment on above: Performed By: #### C BC #### [facility] [address] [place] [address] Dr. Nuha Marinelli IG % 0.4 % Normal 0.0-0.5 [facility] Comment on above: Performed By: #### C BC #### [facility] [address] [place] [address] Dr. Nuha Marinelli LYMPH # 2.3 103/ul Normal 1.2-3.8 [facility] Comment on above: Performed By: #### C BC #### [facility] [address] [place] [address] Dr. Nuha Marinelli Lymphocytes/100 WBC (Bld) 30.7 % Normal 20.5-60.0 [facility] Comment on above: Performed By: #### C BC #### [facility] [address] [place] [address] Dr. Nuha Marinelli MANUAL DIFF REQ NO Normal [facility] Comment on above: Performed By: #### C BC #### [facility] [address] [place] [address] Dr. Nuha Marinelli MCH (RBC) [Entitic mass] 28.0 pg Normal 26.7-34.0 [facility] Comment on above: Performed By: #### C BC #### [facility] [address] [place] [address] Dr. Nuha Marinelli MCHC (RBC) [Mass/Vol] 33.2 g/dL Normal 29.9-35.2 [facility] Comment on above: Performed By: #### C BC #### [facility] [address] [place] [address] Dr. Nuha Marinelli MCV (RBC) [Entitic vol] 84.5 fL Normal 81.0-99.0 [facility] Comment on above: Performed By: #### C BC #### [facility] [address] [place] [address] Dr. Nuha Marinelli MONO # 0.5 103/ul Normal 0.3-0.8 [facility] Comment on above: Performed By: #### C BC #### [facility] [address] [place] [address] Dr. Nuha Marinelli Monocytes/100 WBC (Bld) 6.8 % Normal 1.7-12.0 [facility] Comment on above: Performed By: #### C BC #### [facility] [address] [place] [address] Dr. Nuha Marinelli NEUT # 4.3 103/ul Normal 1.4-6.5 [facility] Comment on above: Performed By: #### C BC #### [facility] [address] [place] [address] Dr. Nuha Marinelli Neutrophils/100 WBC (Bld) 58.3 % Normal 43.0-75.0 [facility] Comment on above: Performed By: #### C BC #### [facility] [address] [place] [address] Dr. Nuha Marinelli Platelet mean volume (Bld) [Entitic vol] 9.2 fL Critically low 9.5-13.5 [facility] Comment on above: Performed By: #### C BC #### [facility] [address] [place] [address] Dr. Nuha Marinelli PLT 209 103/ul Normal 150-450 [facility] Comment on above: Performed By: #### C BC #### [facility] [address] [place] [address] Dr. Nuha Marinelli RBC 4.85 106/ul Normal 4.20-5.40 [facility] Comment on above: Performed By: #### C BC #### [facility] [address] [place] [address] Dr. Nuha Marinelli WBC 7.4 103/ul Normal 4.0-11.0 [facility] Comment on above: Performed By: #### C BC #### [facility] [address] [place] [address] Dr. Nuha Marinelli LIPID PROFILEon 05-12-2022 CHOL-HDL RATIO NORM SEE BELOW Normal [facility] Comment on above: Result Comment: 3.3 - 4.4 LOW RISK 4.4 - 7.1 AVERAGE RISK 7.1 - 11.0 MODERATE RISK >11.0 HIGH RISK Performed By: #### B MP, LIPID #### [facility] [address] [address] [address] Nuha Marinelli Cholesterol [Mass/Vol] 183 mg/dL Normal <=200 [facility] Comment on above: Performed By: #### B MP, LIPID #### [facility] [address] [address] [address] Nuha Marinelli Cholesterol in HDL [Mass/Vol] 47 mg/dL Normal 40-60 [facility] Comment on above: Performed By: #### B MP, LIPID #### [facility] [address] [address] [address] Nuha Marinelli Cholesterol in LDL [Mass/Vol] 102.8 mg/dL Normal [facility] Comment on above: Performed By: #### B MP, LIPID #### [facility] [address] [place] [address] Dr. Nuha Marinelli Cholesterol.total/Awilda sterol in HDL [Mass ratio] 3.9 {ratio} Normal [facility] Comment on above: Performed By: #### B MP, LIPID #### [facility] [address] [address] [address] Nuha Marinelli HDL NORMAL > or = 60 mg/dl - LO W CARDIOVASCULAR RISK <40 mg/dl - HIGH CARDIOVASCULAR RISK Normal [facility] Comment on above: Performed By: #### B MP, LIPID #### [facility] [address] [place] [address] Dr. Nuha Marinelli LDL CALC NORMAL SEE BELOW Normal [facility] Comment on above: Result Comment: <100 mg/dl OPTIMAL 100 - 129 mg/dl NEAR OR ABOVE OPTIMAL 130 - 159 mg/dl BORDERLINE HIGH 160 - 189 mg/dl HIGH >190 mg/dl VERY HIGH Performed By: #### B MP, LIPID #### [facility] [address] [address] [address] Nuha Marinelli Triglyceride [Mass/Vol] 166 mg/dL Critically high <=150 [facility] Comment on above: Performed By: #### B MP, LIPID #### [facility] [address] [address] [address] Nuha Marinelli VLDL CALC 33.2 mg/dL Normal [facility] Comment on above: Performed By: #### B MP, LIPID #### [facility] [address] [address] [address] Nuha Marinelli MG MAMM SCREEN 3D CARSON CADon 05-12-2022 MG MAMM SCREEN 3D CARSON CAD Patient: KEELY CHOPRA Exam Date: 05/12/2022 : 1955 Gender:F Ordering : DR JOY LEAL . Admission #: [id number] Family : Order #: [id number] CLICK HERE TO VIEW EXAM RADIOLOGY REPORT [...] liver cancer at age 4. LOCATION: [facility] BREAST COMPOSITION: Heterogeneously dense,which may obscure [...] MD on 05/13/2022 at 11:15 Normal [facility] PROF CHEM 8 (BAS METB)on Anion gap [Moles/Vol] 12.1 mmol/L Normal [facility] Comment on above: Performed By: #### B MP, LIPID #### [facility] [address] [place], [place] [address] Dr. Nuha Marinelli Calcium [Mass/Vol] 9.3 mg/dL Normal 8.5-10.1 [facility] Comment on above: Performed By: #### B MP, LIPID #### [facility] [address] [address] [address] Nuha Marinelli Chloride [Moles/Vol] 99 mmol/L Normal 98-107 [facility] Comment on above: Performed By: #### B MP, LIPID #### [facility] [address] [address] [address] Nuha Marinelli CO2 [Moles/Vol] 29.7 mmol/L Normal 21.0-32.0 [facility] Comment on above: Performed By: #### B MP, LIPID #### [facility] [address] [address] [address] Nuha Marinelli Creatinine [Mass/Vol] 0.77 mg/dL Normal 0.55-1.02 [facility] Comment on above: Performed By: #### B MP, LIPID #### [facility] [address] [address] [address] Nuha Marinelli EGFR-AF SCOTTISH >60 Normal >=60 [facility] Comment on above: Performed By: #### B MP, LIPID #### [facility] [address] [address] [address] Nuha Marinelli EGFR-NON AF SCOTTISH >60 Normal >=60 [facility] Comment on above: Performed By: #### B MP, LIPID #### [facility] [address] [address] [address] Nuha Marinelli Glucose [Mass/Vol] 112 mg/dL Critically high 74-106 [facility] Comment on above: Performed By: #### B MP, LIPID #### [facility] [address] [address] [address] Nuha Marinelli Potassium [Moles/Vol] 3.8 mmol/L Normal 3.5-5.1 [facility] Comment on above: Performed By: #### B MP, LIPID #### [facility] [address] [address] [address] Nuha Marinelli Sodium [Moles/Vol] 137 mmol/L Normal 136-145 [facility] Comment on above: Performed By: #### B MP, LIPID #### [facility] [address] [place] [address] Dr. Nuha Marinelli Urea nitrogen [Mass/Vol] 15.0 mg/dL Normal 7.0-18.0 [facility] Comment on above: Performed By: #### B MP, LIPID #### [facility] [address] [place] [address] Dr. Nuha Marinelli Urea nitrogen/Creatinine [Mass ratio] 19.5 mg/mg Normal [facility] Comment on above: Performed By: #### B MP, LIPID #### [facility] [address] [place] [address] Dr. Nuha Marinelli CBC AUTO DIFFon 11-15-2021 BASO # 0.0 103/ul Normal 0.0-0.1 [facility] Comment on above: Performed By: #### C BC #### [facility] [address] [place] [address] Dr. Nuha Marinelli Basophils/100 WBC (Bld) 0.6 % Normal 0.2-2.0 [facility] Comment on above: Performed By: #### C BC #### [facility] [address] [place] [address] Dr. Nuha Marinelli EO # 0.3 103/ul Normal 0.0-0.7 [facility] Comment on above: Performed By: #### C BC #### [facility] [address] [place] [address] Dr. Nuha Marinelli Eosinophils/100 WBC (Bld) 4.3 % Normal 0.9-7.0 [facility] Comment on above: Performed By: #### C BC #### [facility] [address] [place] [address] Dr. Nuha Marinelli Erythrocyte distribution width (RBC) [Ratio] 13.6 % Normal 11.0-15.0 [facility] Comment on above: Performed By: #### C BC #### [facility] [address] [place] [address] Dr. Nuha Marinelli Hematocrit (Bld) [Volume fraction] 39.8 % Normal 36.0-48.0 [facility] Comment on above: Performed By: #### C BC #### [facility] [address] [place] [address] Dr. Nuha Marinelli Hemoglobin (Bld) [Mass/Vol] 13.0 g/dL Normal 12.0-16.0 [facility] Comment on above: Performed By: #### C BC #### [facility] [address] [place] [address] Dr. Nuha Marinelli IG # 0.02 10e3/ul Normal 0.00-0.03 [facility] Comment on above: Performed By: #### C BC #### [facility] [address] [place] [address] Dr. Nuha Marinelli IG % 0.3 % Normal 0.0-0.5 [facility] Comment on above: Performed By: #### C BC #### [facility] [address] [place] [address] Dr. Nuha Marinelli LYMPH # 2.4 103/ul Normal 1.2-3.8 [facility] Comment on above: Performed By: #### C BC #### [facility] [address] [place] [address] Dr. Nuha Marinelli Lymphocytes/100 WBC (Bld) 36.5 % Normal 20.5-60.0 [facility] Comment on above: Performed By: #### C BC #### [facility] [address] [place] [address] Dr. Nuha Marinelli MANUAL DIFF REQ NO Normal [facility] Comment on above: Performed By: #### C BC #### [facility] [address] [place] [address] Dr. Nuha Marinelli MCH (RBC) [Entitic mass] 28.6 pg Normal 26.7-34.0 [facility] Comment on above: Performed By: #### C BC #### [facility] [address] [place] [address] Dr. Nuha Marinelli MCHC (RBC) [Mass/Vol] 32.7 g/dL Normal 29.9-35.2 [facility] Comment on above: Performed By: #### C BC #### [facility] [address] [address] [address] Nuha Marinelli MCV (RBC) [Entitic vol] 87.5 fL Normal 81.0-99.0 [facility] Comment on above: Performed By: #### C BC #### [facility] [address] [address] [address] Nuha Marinelli MONO # 0.6 103/ul Normal 0.3-0.8 [facility] Comment on above: Performed By: #### C BC #### [facility] [address] [place] [address] Dr. Nuha Marinelli Monocytes/100 WBC (Bld) 9.0 % Normal 1.7-12.0 [facility] Comment on above: Performed By: #### C BC #### [facility] [address] [place] [address] Dr. Nuha Marinelli NEUT # 3.3 103/ul Normal 1.4-6.5 [facility] Comment on above: Performed By: #### C BC #### [facility] [address] [place] [address] Dr. Nuha Marinelli Neutrophils/100 WBC (Bld) 49.3 % Normal 43.0-75.0 [facility] [place] Comment on above: Performed By: #### C BC #### [facility] [address] [place] [address] Dr. Nuha Marinelli Platelet mean volume (Bld) [Entitic vol] 9.3 fL Critically low 9.5-13.5 [facility] [place] Comment on above: Performed By: #### C BC #### [facility] [address] [place] [address] Dr. Nuha Marinelli PLT 181 103/ul Normal 150-450 [facility] Comment on above: Performed By: #### C BC #### [facility] [address] [place] [address] Dr. Nuha Marinelli RBC 4.55 106/ul Normal 4.20-5.40 [facility] [place] Comment on above: Performed By: #### C BC #### [facility] [address] [address] [address] Nuha Marinelli WBC 6.7 103/ul Normal 4.0-11.0 [facility] [place] Comment on above: Performed By: #### C BC #### [facility] [address] [place] [address] Dr. Nuha Marinelli LIPID PROFILEon 11-15-2021 CHOL-HDL RATIO NORM SEE BELOW Normal [facility] [place] Comment on above: Result Comment: 3.3 - 4.4 LOW RISK 4.4 - 7.1 AVERAGE RISK 7.1 - 11.0 MODERATE RISK >11.0 HIGH RISK Performed By: #### L IPID, CMP, TSH #### [facility] [address] [address] [address] Nuha Marinelli Cholesterol [Mass/Vol] 219 mg/dL Critically high <=200 [facility] [place] Comment on above: Performed By: #### L IPID, CMP, TSH #### [facility] [address] [place] [address] Dr. Nuha Marinelli Cholesterol in HDL [Mass/Vol] 47 mg/dL Normal 40-60 [facility] [place] Comment on above: Performed By: #### L IPID, CMP, TSH #### [facility] [address] [place] [address] Dr. Nuha Marinelli Cholesterol in LDL [Mass/Vol] 139.2 mg/dL Normal [facility] [place] Comment on above: Performed By: #### L IPID, CMP, TSH #### [facility] [address] [place] [address] Dr. Nuha Marinelli Cholesterol.total/Awilda sterol in HDL [Mass ratio] 4.7 {ratio} Normal [facility] Comment on above: Performed By: #### L IPID, CMP, TSH #### [facility] [address] [place] [address] Dr. Nuha Marinelli HDL NORMAL > or = 60 mg/dl - LO W CARDIOVASCULAR RISK <40 mg/dl - HIGH CARDIOVASCULAR RISK Normal [facility] [place] Comment on above: Performed By: #### L IPID, CMP, TSH #### [facility] [address] [place] [address] Dr. Nuha Marinelli LDL CALC NORMAL SEE BELOW Normal [facility] [place] Comment on above: Result Comment: <100 mg/dl OPTIMAL 100 - 129 mg/dl NEAR OR ABOVE OPTIMAL 130 - 159 mg/dl BORDERLINE HIGH 160 - 189 mg/dl HIGH >190 mg/dl VERY HIGH Performed By: #### L IPID, CMP, TSH #### [facility] [address] [address] [address] Nuha Marinelli Triglyceride [Mass/Vol] 164 mg/dL Critically high <=150 [facility] [place] Comment on above: Performed By: #### L IPID, CMP, TSH #### [facility] [address] [address] [address] Nuha Marinelli VLDL CALC 32.8 mg/dL Normal [facility] [place] Comment on above: Performed By: #### L IPID, CMP, TSH #### [facility] [address] [place] [address] Dr. Nuha Marinelli PROF 14(COMP METB)on 022 Albumin [Mass/Vol] 3.7 g/dL Normal 3.4-5.0 [facility] [place] Comment on above: Performed By: #### L IPID, CMP, TSH #### [facility] [address] [place] [address] Dr. Nuha Marinelli Albumin/Globulin [Mass ratio] 1.0 {ratio} Normal [facility] [place] Comment on above: Performed By: #### L IPID, CMP, TSH #### [facility] [address] [address] [address] Nuha Marinelli ALP [Catalytic activity/Vol] 79 U/L Normal 46-116 [facility] [place] Comment on above: Performed By: #### L IPID, CMP, TSH #### [facility] [address] [address] [address] Nuha Marinelli ALT [Catalytic activity/Vol] 32 U/L Normal 14-59 [facility] [place] Comment on above: Performed By: #### L IPID, CMP, TSH #### [facility] [address] [address] [address] Nuha Marinelli Anion gap [Moles/Vol] 12.6 mmol/L Normal Th e [facility] Comment on above: Performed By: #### L IPID, CMP, TSH #### [facility] [address] [place] [address] Dr. Nuha Marinelli AST [Catalytic activity/Vol] 16 U/L Normal 15-37 [facility] Comment on above: Performed By: #### L IPID, CMP, TSH #### [facility] [address] [place] [address] Dr. Nuha Marinelli Bilirubin [Mass/Vol] 0.5 mg/dL Normal 0.2-1.0 [facility] [place] Comment on above: Performed By: #### L IPID, CMP, TSH #### [facility] [address] [place] [address] Dr. Nuha Marinelli Calcium [Mass/Vol] 8.9 mg/dL Normal 8.5-10.1 [facility] [place] Comment on above: Performed By: #### L IPID, CMP, TSH #### [facility] [address] [place] [address] Dr. Nuha Marinelli Chloride [Moles/Vol] 102 mmol/L Normal 98-107 [facility] Comment on above: Performed By: #### L IPID, CMP, TSH #### [facility] [address] [place] [address] Dr. Nuha Marinelli CO2 [Moles/Vol] 27.7 mmol/L Normal 21.0-32.0 [facility] Comment on above: Performed By: #### L IPID, CMP, TSH #### [facility] [address] [place] [address] Dr. Nuha Marinelli Creatinine [Mass/Vol] 0.90 mg/dL Normal 0.55-1.02 [facility] [place] Comment on above: Performed By: #### L IPID, CMP, TSH #### [facility] [address] [place] [address] Dr. Nuha Marinelli EGFR-AF SCOTTISH >60 Normal >=60 [facility] Comment on above: Performed By: #### L IPID, CMP, TSH #### [facility] [address] [place] [address] Dr. Nuha Marinelli EGFR-NON AF SCOTTISH >60 Normal >=60 [facility] [place] Comment on above: Performed By: #### L IPID CMP, TSH #### [facility] [address] [address] [address] Nuha Marinelli Globulin (S) [Mass/Vol] 3.7 g/dL Normal [facility] Comment on above: Performed By: #### L IPID CMP, TSH #### [facility] [address] [address] [address] Nuha Marinelli Glucose [Mass/Vol] 108 mg/dL Critically high 74-106 [facility] Comment on above: Performed By: #### L IPID CMP, TSH #### [facility] [address] [place] [address] Dr. Nuha Marinelli Potassium [Moles/Vol] 4.3 mmol/L Normal 3.5-5.1 [facility] [place] Comment on above: Performed By: #### L IPID CMP, TSH #### [facility] [address] [place] [address] Dr. Nuha Marinelli Protein [Mass/Vol] 7.4 g/dL Normal 6.4-8.2 [facility] [place] Comment on above: Performed By: #### L IPID CMP, TSH #### [facility] [address] [place] [address] Dr. Nuha Marinelli Sodium [Moles/Vol] 138 mmol/L Normal 136-145 [facility] [place] Comment on above: Performed By: #### L IPID, CMP, TSH #### [facility] [address] [place] [address] Dr. Nuha Marinelli Urea nitrogen [Mass/Vol] 18.0 mg/dL Normal 7.0-18.0 [facility] [place] Comment on above: Performed By: #### L IPID CMP, TSH #### [facility] [address] [address] [address] Nuha Marinelli Urea nitrogen/Creatinine [Mass ratio] 20.0 mg/mg Normal [facility] [place] Comment on above: Performed By: #### L IPID, CMP, TSH #### [facility] [address] [place], [place] [address] Dr. Nuha Marinelli TSHon 11-15-2021 TSH 1.735 uIU/mL Normal 0.358-3.74 0 [facility] Comment on above: Performed By: #### L IPID, CMP, TSH #### [facility] [id number] Nuha Marinelli Vital Signs Date Time Vital Sign Value Performing Clinician Facility 09-23-2024 09:27-0400 Diastolic blood pressure 91 mm[Hg] Juan Domingo MD Work Phone: [facility] 09-23-2024 09:27-0400 Systolic blood pressure 138 mm[Hg] Juan Domingo MD Work Phone: [facility] 09-23-2024 09:26-0400 Heart rate 82 /min Juan Domingo MD Work Phone: [facility] 08-22-2024 09:04-0400 Body height 157.5 cm [facility] 08-22-2024 09:04-0400 Body mass index (BMI) [Ratio] 48.14 kg/m2 [facility] 08-22-2024 09:04-0400 Body weight 119.39 kg [facility] 08-22-2024 09:04-0400 Diastolic blood pressure 88 mm[Hg] [facility] 08-22-2024 09:04-0400 Heart rate 67 /min [facility] 08-22-2024 09:04-0400 Systolic blood pressure 142 mm[Hg] [facility] 08-08-2024 09:55-0400 Body height 157.5 cm Troy Vasquez MD Work Phone: [facility] [place] 08-08-2024 09:55-0400 Body mass index (BMI) [Ratio] 48.29 kg/m2 Troy Vasquez MD Work Phone: [facility] 08-08-2024 09:55-0400 Body weight 119.75 kg Troy Vasquez MD Work Phone: [facility] 08-08-2024 09:55-0400 Diastolic blood pressure 86 mm[Hg] Troy Vasquez MD Work Phone: [facility] 08-08-2024 09:55-0400 Heart rate 76 /min Troy Vasquez MD Work Phone: [facility] 08-08-2024 09:55-0400 Systolic blood pressure 118 mm[Hg] Troy Vasquez MD Work Phone: [facility] 07-07-2024 10:55-0500 Diastolic blood pressure 80 mm[Hg] Le Cristiane ORE M[employer]ER[employer]C Work Phone: [facility] 07-07-2024 10:55-0500 Heart rate 66 /min Le Cristiane [employer] Work Phone: [facility] 07-07-2024 10:55-0500 Respiratory rate 16 /min Le Cristiane [employer] Work Phone: [facility] 07-07-2024 10:55-0500 SaO2% (BldA) [Mass fraction] 98 % Le Cristiane [employer] Work Phone: [facility] 07-07-2024 10:55-0500 Systolic blood pressure 138 mm[Hg] Le Cristiane [employer] M[employer]C Work Phone: [facility] 07-07-2024 06:55-0500 Body height 157.48 cm Le Cristiane [employer]C Work Phone: [facility] 07-07-2024 06:55-0500 Body temperature 97.4 [degF] Le Cristiane [employer] M[employer]C Work Phone: [facility] 07-07-2024 06:55-0500 Body weight 119.9 kg Le Cristiane [employer]C Work Phone: [facility] 07-06-2024 16:45-0500 Body temperature 97.6 [degF] Le Cristiane [employer] Work Phone: [facility] 07-06-2024 16:45-0500 Diastolic blood pressure 58 mm[Hg] Le Cristiane [employer] Work Phone: [facility] 07-06-2024 16:45-0500 Heart rate 70 /min Le Cristiane [employer] Work Phone: [facility] 07-06-2024 16:45-0500 Respiratory rate 18 /min Le Cristiane [employer] Work Phone: [facility] 07-06-2024 16:45-0500 SaO2% (BldA) [Mass fraction] 98 % Le Cristiane [employer] Work Phone: [facility] 07-06-2024 16:45-0500 Systolic blood pressure 91 mm[Hg] Le Cristiane [employer] Work Phone: [facility] 07-06-2024 07:01-0500 Body weight 119.6 kg Le Cristiane [employer] Work Phone: [facility] 07-05-2024 23:50-0500 Body height 157.48 cm Le Cristiane [employer]RE [employer]C Work Phone: [facility] Encounters Encounter Date Encounter Type Care Provider Facility Start: 04-04-2025 ambulatory Le L Cristiane Facility: [facility] Start: 01-02-2025 End: 01-02-2025 ambulatory Le L Cristiane Facility:[facility] Start: 09-29-2024 End: 09-29-2024 Refill Juan Domingo MD Work Phone: [facility] Comment on above: Medication Refill Start: 09-23-2024 End: 09-23-2024 Office outpatient new 45 minutes Le Mesha Cristiane INTERNATIONAL RECRUITER Work Phone: [facility] Comment on above: NSTEMI (non-ST eleva dionne myocardial infarction) (HCC); Hypertension, unspecified type; Atrial flutter (HCC) Start: 09-23-2024 End: 09-23-2024 ambulatory JUAN DOMINGO [facility] Start: 09-12-2024 End: 09-12-2024 Orders Only Juan Domingo MD Work Phone: [facility] Comment on above: Atrial flutter (HCC) (Primary Dx) Start: 08-30-2024 End: 08-30-2024 ambulatory Le L Cristiane Facility:[facility] Start: 08-22-2024 End: 08-22-2024 Professional / ancillary services management Lauren Eastman LPN [facility] Comment on above: Paroxysmal atrial fi brillation (Multi) Start: 08-22-2024 End: 08-22-2024 ambulatory [facility] Start: 08-17-2024 End: 08-17-2024 Transcribe Orders Taty Block TECHNOLOGIST [facility] Comment on above: NSTEMI (non-ST eleva dionne myocardial infarction) (HCC) (Primary Dx); Hypertension, unspecified type Start: 08-15-2024 End: 08-15-2024 ambulatory Le L Cristiane Facility:[facility] Start: 08-09-2024 End: 08-09-2024 ambulatory Le L Cristiane Facility:[facility] Start: 08-08-2024 End: 08-08-2024 Office outpatient visit 25 minutes Troy Vasquez MD Work Phone: [facility] Comment on above: Paroxysmal atrial fi brillation (Multi) (Primary Dx); Myocardial infarction type 2 (Multi) Start: 08-08-2024 End: 08-08-2024 ambulatory [facility] Start: 07-15-2024 End: 07-15-2024 ambulatory Le L Cristiane Facility:[facility] Start: 07-11-2024 End: 07-11-2024 ambulatory Le L Cristiane Facility: [facility] Start: 07-07-2024 End: 07-07-2024 Emergency department patient visit Le Huitron ORE MIXER-C Work Phone: [facility] Work Phone: Start: 07-05-2024 End: 07-06-2024 Evaluation and management of inpatient Le Huitron ORE M[employer]ER[employer]C Work Phone: [facility] Work Phone: Start: 04-11-2024 End: 04-11-2024 ambulatory Le L Cristiane Facility: [facility] Start: 03-28-2024 ambulatory Le L Cristiane Facility: [facility] Start: 03-21-2024 End: 03-21-2024 Bamboo flowsheet Alecia A Felter GALVANOMETER ASSEMBLER-INTERNATIONAL RECRUITER Work Phone: [facility] Start: 03-21-2024 End: 03-21-2024 Bamboo flowsheet Alecia A Felter GALVANOMETER ASSEMBLER-INTERNATIONAL RECRUITER Work Phone: [facility] Start: 03-21-2024 End: 03-21-2024 Office outpatient visit 15 minutes Alecia A Felter GALVANOMETER ASSEMBLER-INTERNATIONAL RECRUITER Work Phone: [facility] Comment on above: Psoriasis vulgaris ( CMS/HCC); Rash and other nonspecific skin eruption Start: 03-21-2024 End: 03-21-2024 ambulatory ALECIA A FELTER Not Available Start: 01-25-2024 End: 01-25-2024 Bamboo flowsheet Alecia A Felter GALVANOMETER ASSEMBLER-INTERNATIONAL RECRUITER Work Phone: [facility] Start: 01-25-2024 End: 01-25-2024 Bamboo flowsheet Alecia A Felter GALVANOMETER ASSEMBLER-INTERNATIONAL RECRUITER Work Phone: [facility] Start: 01-25-2024 End: 01-25-2024 Office outpatient visit 25 minutes Alecia A Felter GALVANOMETER ASSEMBLER-INTERNATIONAL RECRUITER Work Phone: [facility] Comment on above: Seborrheic keratosis ; Lentigines; Melanocytic nevus of trunk; Seborrheic keratosis, inflamed; Psoriasis vulgaris (CMS/HCC); Rash and other nonspecific skin eruption; Neoplasm of unspecified behavior of bone, soft tissue, and skin Start: 01-25-2024 End: 01-25-2024 ambulatory ALECIA FONTENOTER Not Available Start: 07-03-2023 End: 07-03-2023 ambulatory ALECIA Middleton FELTER Not Available Start: 06-15-2023 End: 06-15-2023 ambulatory ALECIA Middleton FELTER Not Available Start: 05-12-2022 End: 05-13-[address] JOY LEAL Facility:[facility] Start: 11-15-2021 End: 11-16-[address] JOY LEAL Facility:[facility] Procedures Date Procedure Procedure Detail Performing Clinician Start: 09-23-2024 Ecg routine ecg w/le ast 12 lds w/i&r Juan Domingo MD Work Phone: Start: 07-07-2024 Plain chest X-ray Le Huitron [employer] M[employer]C Work Phone: Start: 07-06-2024 CL [facility] Angio (Right) Le Huitron ORE M[employer]ER[employer]C Work Phone: Start: 07-06-2024 Le ruano ORE MIXER-C Work Phone: Start: 06-08-2024 Mammography Juan Domingo MD Work Phone: Start: 01-25-2024 CRYOTHERAPY SKIN LESION Alecia Ortez GALVANOMETER ASSEMBLER-INTERNATIONAL RECRUITER Work Phone: Start: 01-25-2024 End: 01-25-2024 SKIN / NAIL BIOPSY Alecia Ortez GALVANOMETER ASSEMBLER-INTERNATIONAL RECRUITER Work Phone: Start: 05-18-2013 Colonoscopy Alecia Farrell ltashleigh GALVANOMETER ASSEMBLER-INTERNATIONAL RECRUITER Work Phone: Plan of Treatment Date Care Activity Detail Author Start: 06-08-2025 Screening for malignant neoplasm of breast Mammogram [facility] Start: 03-21-2025 End: 03-21-2025 Patient encounter procedure 03/21/2025 10:35 AM EST Office Visit [facility] [address] [place] [phone] Alecia Ortze APRN-INTERNATIONAL RECRUITER [address] [place] [address] [facility] Start: 03-20-2025 End: 03-20-2025 Patient encounter procedure 03/20/2025 10:00 AM EST Office Visit [facility] [address] [place] [phone] Juan Domingo MD [address] [place] [address] [facility] Start: 12-23-2024 End: 12-23-2024 Patient encounter procedure 12/23/2024 9:00 AM EDT Office Visit [facility] [address] [place] [phone] Troy Vasquez MD [address] [place] [address] [facility] Start: 09-23-2024 End: 09-23-2024 Patient encounter procedure 09/23/2024 9:30 AM EDT Office Visit [facility] [address] [place] [phone] Le Huitron, INTERNATIONAL RECRUITER [address] [place] [address] Juan Domingo MD [address] [place] [address] [facility] Start: 09-22-2024 COVID-19 Vaccine () COVID-19 Vaccine () [facility] Start: 08-22-2024 End: 08-08-2025 ECG 12 Lead [facility] Service Area Work Phone: Comment on above: Expected: 08/22/2024 (Approximate), Expi res: 08/08/2025 Start: 08-22-2024 End: 08-22-2024 Professional / ancillary services management 08/22/2024 9:00 AM EDT Ancillary Procedure [facility] [address] [place] [address] [facility] Start: 07-06-2024 [facility] Start: 07-06-2024 [facility] Start: 07-05-2024 Hospital admission [facility] Start: 03-21-2024 End: 03-21-2024 Patient encounter procedure 03/21/2024 10:40 AM EST Office Visit [facility] [address] [place] [phone] Alecia Ortez, GALVANOMETER ASSEMBLER-INTERNATIONAL RECRUITER [address] [place] [address] Arrived [facility] Comment on above: Arrived Start: 02-15-2024 End: 02-15-2024 Patient encounter procedure 02/15/2024 9:35 AM EDT Office Visit [facility] [address] [place] [address] Alecia Ortez, GALVANOMETER ASSEMBLER-INTERNATIONAL RECRUITER [address] [place] [address] [facility] Start: 01-25-2024 End: 01-25-2024 Patient encounter procedure 01/25/2024 9:55 AM EDT Office Visit [facility] [address] [place] [address] Alecia Ortez, GALVANOMETER ASSEMBLER-INTERNATIONAL RECRUITER [address] [place] [address] Arrived [facility] Comment on above: Arrived Start: 01-17-2024 COVID-19 Vaccine ( season) COVID-19 Vaccine ( season) [facility] Start: 01-17-2024 COVID-19 Vaccine ( season) COVID-19 Vaccine ( season) [facility] Start: 01-17-2024 Influenza vaccination Influenza Vaccine (#1) [facility] Start: 05-18-2023 Screening for malignant neoplasm of colon [facility] Start: 03-14-2021 Pneumococcal Vaccine: 65+ Years (2 of 2 - PPSV23 or PCV20) Pneumococcal Vaccine: 65+ Years (2 of 2 - PPSV23 or PCV20) [facility] Start: 03-14-2021 Pneumococcal Vaccine: Age 50+ (2 of 2 - PPSV23) Pneumococcal Vaccine: Age 50+ (2 of 2 - PPSV23) [facility] Start: 05-09-2020 Pneumococcal vaccination Pneumococcal Vaccine (2 of 2 - PPSV23) [facility] Start: 2018 Fall risk assessment Falls Risk Assessment [facility] Start: 2013 Respiratory Syncytial Virus Immunization: Risk, 60-74 Risk, or 75+ (1 - Risk 60-74 years 1-dose series) Respiratory Syncytial Virus Immunization: Risk, 60-74 Risk, or 75+ (1 - Risk 60-74 years 1-dose series) [facility] Start: 2013 RSV High Risk: (Elderly (60+) or Population) (1 - Risk 60-74 years 1-dose series) RSV High Risk: (Elderly (60+) or Population) (1 - Risk 60-74 years 1-dose series) [facility] Start: 08-03-2003 Screening for malignant neoplasm of colon Flexible sigmoidoscopy [facility] Start: 1993 Screening for malignant neoplasm of breast Mammogram [facility] Start: 08-03-1975 DTaP/Tdap/Td Vaccines (1 - Tdap) DTaP/Tdap/Td Vaccines (1 - Tdap) [facility] Start: 08-03-1971 Diabetes mellitus screening Diabetes Screening [facility] Start: 08-03-1971 Hepatitis C screening Hepatitis C Screening [facility] Start: 1965 Depression screening using PHQ-9 (Patient Health Questionnaire 9) score Depression Screening/Follow-Up (PHQ-2/9) [facility] Start: 1956 Medicare Wellness Visit Medicare Wellness Visit [facility] Start: 1955 Lipid panel Lipid Panel [facility] Start: 1955 Medicare Annual Wellness Visit Medicare Annual Wellness Visit (AWV) [facility] Start: 1955 Screening for malignant neoplasm of colon [facility] Start: 1955 Screening for osteoporosis [facility] Start: 1955 Tetanus vaccination Tetanus: Every 10yrs [facility] End: 09-12-2027 12 lead ECG ECG 12 Lead ECG Routine Atrial flutter (HCC) 1 Occurrences starting 09/12/2024 until 09/12/2027 [facility] Work Phone: Comment on above: 1 Occurrences starting 09/12/2024 until 09/12/2027 Dermatopathology exam Dermatopat hology exam Pathology and Cytology Timed Neoplasm of unspecified behavior of bone, soft tissue, and skin Release Upon Ordering for 1 Occurrences starting 01/25/2024 [facility] Work Phone: Comment on above: Release Upon Ordering for 1 Occurrences starting 01/25/2024 Patient Education [facility] Work Phone: Patient referral [facility] Work Phone: Immunizations Immunization Date Immunization Notes Care Provider Michelle díaz 02-23-2024 influenza, seasonal, injectable Troy Vasquez MD Work Phone: [facility] Work Phone: 04-01-2023 influenza virus vaccine, unspecified formulation Alecia Ortez GALVANOMETER ASSEMBLER-INTERNATIONAL RECRUITER Work Phone: [facility] Payers Date Payer Category Payer Self-pay 2023 Private Health Insurance [id number] 2021 Medicare supplementa l policy (as second payer) [id number] 2018 Medicare [id number] 1959 Medicare [id number] 1959 Private Health Insurance CLI [id number] 1953 Unknown [id number] 2.16.840.1.216010.3.579.2. 593 1953 Unknown [id number] 2.16.840.1.594616.3.579.2. 593 1953 Unknown [id number] 2.16.840.1.976497.3.579.2. 1259 1953 Unknown [id number] 2.16.840.1.663351.3.579.2. 1259 1953 Unknown [id number] 2.16.840.1.383477.3.579.2. 1259 1953 Unknown [id number] 2.16.840.1.650607.3.579.2. 1259 1953 Unknown [id number] 2.16.840.1.631393.3.579.2. 1244 1953 Unknown [id number] 2.16.840.1.469827.3.579.2. 1244 1953 Unknown [id number] 2.16.840.1.081703.3.579.2. 903 1953 Unknown [id number] 2.16.840.1.317351.3.579.2. 727 1953 Unknown [id number] 2.16.840.1.468335.3.579.2. 727 1953 Unknown [id number] 2.16.840.1.997809.3.579.2. 727 1953 Unknown [id number] 2.16.840.1.928973.3.579.2. 727 1953 Unknown [id number] 2.16.840.1.290394.3.579.2. 727 1953 Unknown [id number] 2.16.840.1.660888.3.579.2. 727 1953 Unknown [id number] 2.16.840.1.724532.3.579.2. 727 1953 Unknown [id number] 2.16.840.1.849674.3.579.2. 727 1953 Unknown [id number] 2.16.840.1.131209.3.579.2. 727 1953 Unknown [id number] 2.16.840.1.984636.3.579.2. 727 1953 Unknown [id number] 2.16.840.1.232697.3.579.2. 727 Unknown Regular Insurance [id number] Unknown [id number] 2.16.840.1.023459.3.579.2. 531 Unknown [id number] 2.16.840.1.631081.3.579.2. 531 Social History Date Type Detail Facility Start: 05-05-2023 End: 09-23-2024 Tobacco smoking status NHIS Never smoked tobacco [facility] Start: 01-25-2024 End: 08-22-2024 Alcoholic beverage intake Lifetime non-drinker (finding) [facility] Start: 01-25-2024 End: 09-23-2024 History of Social function [facility] Start: 01-25-2024 End: 09-23-2024 Tobacco use panel [facility] Start: 05-05-2023 Alcohol Comment caffeine: 1-2 cups per day [facility] Start: 1955 Sex assigned at Not on file [facility] Start: 07-06-2024 End: 07-07-2024 Sex Female (finding) [facility] Start: 1955 Sex Assigned At Female F [facility] Start: 08-08-2024 End: 09-23-2024 Tobacco use and exposure Smokeless tobacco non-user [facility] Work Phone: Start: 07-29-2024 End: 08-22-2024 Exposure to SARS-CoV-2 (event) Not sure [facility] Tobacco smoking stat us NHIS Tobacco smoking consumption unknown [facility] Start: 09-23-2024 Alcoholic beverage intake Ex-drinker (finding) [facility] Goals Date Patient Goal Desired Activity /State Functional Status Date Assessment Result Facility 07-06-2024 Functional status Patient at Baseline [facility] Work Phone: Mental Status Date Assessment Result Facility 07-06-2024 Cognitive function Cognitive Sta tus Patient at Baseline [facility] Work Phone: Clinical Notes 01-25-2024 to 09-23-2024 Juan Domingo MD - 09/23/2024 10:16 AM EDTPatient InstructionsLauren Eastman LPN - 08/22/2024 9:00 AM Antonino Vasquez MD - 08/08/2024 10:00 AM EDTPatient Instructions Note Date & Type Note Facility 09-23-2024 Note Electrophysiology Cl inic Consult Heart & Vascular [facility] 09/23/2024 Juan Domingo MD [address] [facility] [address] Patient: Keely Chopra Date of : [...] her flecainide and apixaban. She has a go2 media mobile device which she will use to [...] reported atrial fibrillation. The patient lives in [facility]. She had experienced tachycardia that led to a brief hospitalization in June. She was felt to have atrial fibrillation and was started on therapeutic anticoagulation with apixaban. She was placed on metoprolol. She was seen in outpatient follow-up with a local employment case manager. The patient was experiencing some continued palpitations [...] Final Result by Juan Domingo MD (09/23/2024 0904) HOME Medications: Patient's Medications New Prescriptions DILTIAZEM [...] AUTHENTICATED BY JUAN DOMINGO, ON 09/23/2024 10:20:40 [facility] 09-23-2024 History of Present illness Narrative Electrophysiology Clinic Consult Heart & Vascular [facility] 09/23/2024 Juan Domingo MD [address] [facility] [address] Patient: Keely Chopra Date of : [...] her flecainide and apixaban. She has a go2 media mobile device which she will use to [...] reported atrial fibrillation. The patient lives in [facility]. She had experienced tachycardia that led to a brief hospitalization in June. She was felt to have atrial fibrillation and was started on therapeutic anticoagulation with apixaban. She was placed on metoprolol. She was seen in outpatient follow-up with a local employment case manager. The patient was experiencing some continued palpitations [...] Final Result by Juan Domingo MD (09/23/2024 7839) HOME Medications: Patient's Medications New Prescriptions DILTIAZEM [...] Smokeless Tobacco Never documented in this encounter [facility] 09-23-2024 Jennifer Terrell RN - 09/23/2024 10:02 AM EDT AVS printed and reviewed. If you have any questions or concerns about your visit today with Dr. Domingo, please contact Milagro PINO at [phone] . documented in this encounter [facility] 08-22-2024 History of Present illness Narrative Patient [...] (5' 2 ) documented in this encounter [facility] Work Phone: 08-08-2024 History of Present illness Narrative Chief Complaint Patient presents with Follow[place] [facility] [place] Subjective Keely Chopra is a [...] palpitation and was in the hospital at [place] with an episode of atrial flutter. Assessment [...] Scribe Attestation By signing my name below, Mariela Stokes LPN, Scribe attest that this documentation has been prepared [...] discussion and plan. documented in this encounter [facility] Work Phone: 08-08-2024 Instructions Mariela Cullen LPN [...] monitor Follow up documented in this encounter [facility] Work Phone: 07-06-2024 Procedure note [facility] 07-06-2024 Consult note Note Date/Time July 06, 2024 11:05am [facility] [address] [place] [address] Cardiology Consult Note Signed Patient: Keely Chopra MR#: [id number] : 1955 Acct:[id number] Age/Sex: 68 / F Adm Date: 5 Loc: Room: [address] [place] [address] Type: ADM IN Attending Dr: Christina Julien MD Copies to: MD Troy Frausto CNP, MD~ Cardiology HPI History of Present Illness Consult Date: 07/06/24 Reason for Consult: Cardiac consultation requested for evaluation of elevated troponin and atrial fibrillation HPI: Ms. Chopra is a 68 year old female with no prior cardiac history except hypertension presented to [facility] complaining of dizziness, palpitation and left [...] system is negative other 1 mentioned above [facility] Source: Unable to Obtain Medical History (Updated 07/06/24 @ 00:14 by Akua Ellsworth APRN) Tear meniscus knee surgical intervention Problem List clean-up per request of Phys. EHR Cmte Anxiety Problem List clean-up per request of Phys. EHR Cmte Hypertension Problem List clean-up per request of Phys. EHR [facility] Surgical History (Updated 04/29/23 @ 13:50 by Trony Solar Wy) H/O breast biopsy Problem List clean-up per request of Phys. EHR Cmte History of appendectomy Problem List clean-up per request of Phys. EHR Cmte History of hysterectomy Problem List clean-up per request of Phys. EHR [facility] Family History (Updated 07/06/24 @ 00:15 [...] x10E3/uL Lymph # (Auto) 1.9 (1.00-4.8) x10E3/uL [place] # (Auto) 0.5 (0.0-0.8) x10E3/uL Eos # [...] and interpreted as documented below: (EKG at [place] showed atrial fibrillation with RVR and nonspecific [...] statin Documented By: Troy Vasquez MD 07/06/24 1057 Signed By: <Electronically signed by MD Troy Vasquez> 07/06/24 1104 [facility] Work Phone: 1(397) 943-348702-19-2025 [place] [address] Cardiology Consult Note Signed Patient: Keely Chopra MR#: [id number] : 1955 Acct:[id number] Age/Sex: 68 / F Adm Date: 5 Loc: Room: [address] [place] [address] Type: ADM IN Attending Dr: Christina Julien MD Copies to: MD Troy Frausto CNP, MD~ Cardiology HPI History of Present Illness Consult Date: 07/06/24 Reason for Consult: Cardiac consultation requested for evaluation of elevated troponin and atrial fibrillation HPI: Ms. Chopra is a 68 year old female with no prior cardiac history except hypertension presented to [facility] complaining of dizziness, palpitation and left [...] system is negative other 1 mentioned above [facility] Source: Unable to Obtain Medical History (Updated 07/06/24 @ 00:14 by Akua Ellsworth APRN) Tear meniscus knee surgical intervention Problem List clean-up per request of Phys. EHR Cmte Anxiety Problem List clean-up per request of Phys. EHR Cmte Hypertension Problem List clean-up per request of Phys. EHR [facility] Surgical History (Updated 04/29/23 @ 13:50 by Trony Solar Wy) H/O breast biopsy Problem List clean-up per [...] x10E3/uL Lymph # (Auto) 1.9 (1.00-4.8) x10E3/uL [place] # (Auto) 0.5 (0.0-0.8) x10E3/uL Eos # [...] and interpreted as documented below: (EKG at [place] showed atrial fibrillation with RVR and nonspecific [...] MD 07/06/24 1059 Signed By: 07/06/24 1105 [facility]02-19-2025 History and physical note Author Akua Ellsworth [facility] Note Date/Time July 06, 2024 3:37am [facility] [address] [place] [address] Hospitalist H&P Signed Patient: Keely Chopra MR#: [id number] : 1955 Acct:[id number] Age/Sex: 68 / F Adm Date: 5 Loc: Room: [address] [place] [address] Type: ADM IN Attending Dr: Mahendra Garcia MD Copies to: MD Le Pryor CNP, GALVANOMETER ASSEMBLER~ HPI DATE OF EXAMINATION: 07/05/24 CHIEF COMPLAINT: dizziness, chest pressure HISTORY OF PRESENT ILLNESS: Ms. Chopra is a 68-year-old female with a PMH of HTN, anxiety, RLS that presented to [facility] emergency room for dizziness, lightheadedness, chest pressure and jaw pain. Patient reports that she was grocery shopping whenshe developed dizziness and lightheadedness and some jaw pain. She finished [employer] shopping and drove home sat in the [...] still but not as bad as earlier. [facility] chart review?initial EKG A-fib with RVR. [...] She wastransferred here as inpatient to the [facility] telemetry floor. Review of Systems Review of Systems Review of systems: A 10 point review of systems was obtained, negative unless noted in the HPI or below. [facility] Medical History (Updated 07/06/24 @ 00:14 by Akua Ellsworth APRN) Tear meniscus knee surgical intervention Problem List clean-up per request of Phys. EHR Cmte Anxiety Problem List clean-up per request of Phys. EHR Cmte Hypertension Problem List clean-up per request of Phys. EHR [facility] Surgical History (Updated 04/29/23 @ 13:50 by Trony Solar Wy) H/O breast biopsy Problem List clean-up per request of Phys. EHR [facility] History of appendectomy Problem List clean-up per request of Phys. EHR Cmte History of hysterectomy Problem List clean-up per request of Phys. EHR [facility] Family History (Updated 07/06/24 @ 00:15 [...] A-fib- converted with 10mg diltiazem IVP in [place] ER - Stat EKG is sinus rhythm- [...] 3 Documented By: Akua Ellsworth APRN 07/05/24 4691 Signed By: <Electronically signed by RAO Ellsworth> 07/06/24 0022 <Electronically signed by Mahendra Garcia MD> 07/06/24 5884 [facility] Work Phone: 1(119) 478-362802-19-2025 [place] [address] Hospitalist H&P Signed Patient: Keely Chopra MR#: [id number] : 1955 Acct:[id number] Age/Sex: 68 / F Adm Date: 5 Loc: Room: [address] [place] [address] Type: ADM IN Attending Dr: Mahendra Garcia MD Copies to: MD Le Pryor CNP, GALVANOMETER ASSEMBLER~ HPI DATE OF EXAMINATION: 07/05/24 CHIEF COMPLAINT: dizziness, chest pressure HISTORY OF PRESENT ILLNESS: Ms. Chopra is a 68-year-old female with a PMH of HTN, anxiety, RLS that presented to [facility] emergency room for dizziness, lightheadedness, chest pressure and jaw pain. Patient reports that she was grocery shopping whenshe developed dizziness and lightheadedness and some jaw pain. She finished [employer] shopping and drove home sat in the [...] still but not as bad as earlier. [facility] chart review?initial EKG A-fib with RVR. [...] She wastransferred here as inpatient to the [facility] telemetry floor. Review of Systems Review of Systems Review of systems: A 10 point review of systems was obtained, negative unless noted in the HPI or below. [facility] Medical History (Updated 07/06/24 @ 00:14 by Akua Ellsworth APRN) Tear meniscus knee surgical intervention Problem List clean-up per request of Phys. EHR Cmte Anxiety Problem List clean-up per request of Phys. EHR Cmte Hypertension Problem List clean-up per request of Phys. EHR [facility] Surgical History (Updated 04/29/23 @ 13:50 by Trony Solar Wy) H/O breast biopsy Problem List clean-up per request of Phys. EHR Cmte History of appendectomy Problem List clean-up per request of Phys. EHR Cmte History of hysterectomy Problem List clean-up per request of Phys. EHR [facility] Family History (Updated 07/06/24 @ 00:15 [...] A-fib- converted with 10mg diltiazem IVP in [place] ER - Stat EKG is sinus rhythm- [...] 3 Documented By: Akua Ellsworth APRN 07/05/24 8163 Signed By: 07/06/24 0022 07/06/24 0337 [facility]02-19-2025 Evaluation note* Diagnosis Onset Date Resolution Status Admit Date A-fib acute July 05, 2024 11:26pm NSTEMI (non-ST elevated myocardial infarction) acute July 05, 2024 11:26pm [facility] Work Phone: 1(960) 521-569911-04-2024 History of Present illness Narrative* HEAVEN Smart - 03/21/2024 10:40 AM EST Follow up [...] below: 1. Psoriasis vulgaris (CMS/HCC) Left Mid [place], Right Postauricular Area, Scalp Well-marginated erythematous papules/plaques [...] 1 year, follow up [id number] History of Present illness Narrative* HEAVEN Smart [...] 4. Seborrheic keratosis, inflamed Neck - Anterior [place] and brown stuck on verrucous scaly papule [...] limited to risks of scarring, darker or senior informatica etl developer pigmentary changes, recurrence, incomplete removal and infection. [...] Anterior 5. Psoriasis vulgaris (CMS/HCC) Left Mid [place], Right Postauricular Area, Scalp Well-marginated erythematous papules/plaques [...] lesion: 0.7 x 0.6 cm Left Chin [place] pearly papule Lesion biopsy Type of biopsy: [...] psoriasis/ rash follow up [facility] Diagnosis Psoriasis vulgaris (CMS/HCC) Other psoriasis Rash and other nonspecific skin eruption [facility] Diagnosis Seborrheic keratosis Lentigines Melanocytic nevus of trunk Benign neoplasm of skin of trunk, except scrotum Seborrheic keratosis, inflamed Psoriasis vulgaris (CMS/HCC) Other psoriasis Rash and other nonspecific skin eruption Neoplasm of unspecified behavior of bone, soft tissue, and skin documented in this encounter [facility] Healthcare[facility] note* Diagnosis Paroxysmal atrial fibrillation (Multi)- Primary Atrial fibrillation Myocardial infarction type 2 (Multi) documented in this encounter [facility] Work Phone: Evaluation note* Diagnosis NSTEMI (non-ST elevated myocardial infarction) (HCC)- Primary Acute myocardial infarction, subendocardial infarction, episode of care unspecified Hypertension, unspecified type [facility] Diagnosis Paroxysmal atrial fibrillation (Multi) Atrial fibrillation documented in this encounter [facility] Work Phone: Evaluation note* Diagnosis Atrial flutter (HCC)- Primary Atrial flutter [facility] Diagnosis NSTEMI (non-ST elevated myocardial infarction) (HCC) Acute myocardial infarction, subendocardial infarction, episode of care unspecified Hypertension, unspecified type Atrial flutter (HCC) Atrial flutter documented in this encounter [facility] Discharge instructions Additional Instructions DISCHARGE INSTRUCTIONS FOR CARDIAC MERCERIZING RANGE CONTROLLER PROCEDURE: Heart Cath The following instructions have [...] cold, numb, blue or white, call the employment case manager immediately. 4. ACTIVITY: You are advised to [...] bottle, follow the instructions on the bottle. [facility] is not responsible for incorrect prescription information provided by the patient during their visit. Do not stop your medications without consulting your health care provider. Please take the list with you to your next doctor's appointment.[facility] Work Phone: Hospital Discharge instructions Additional Instructions Take metoprolol as prescribed. Follow-up with your employment case manager for ongoing management.[facility] Work Phone: Reason for visit Narrative* Cardiovascular (Routine) - Authorized Specialty Diagnoses / Procedures Referred By Contac t Referred To Contact Diagnoses Paroxysmal atrial fibrillation (Multi) Procedures ECG 12 Lead Troy Vasquez MD [address] [place] [address] Phone: tel: fax: Referral ID Status Reason Start Date Expiration Date V isits Requested Visits Authorized [id number] Authorized 08/08/2024 08/08/2025 1 1 [facility] Work Phone: Summary Purpose Family History No [...] and content) DATE CREATED AUTHOR 05/16/2022 [facility] DATE CREATED AUTHOR AUTHOR'S ORGANIZ ATION 03/22/2024 [facility] EPIC DATE CREATED AUTHOR AUTHOR'S ORGANIZ ATION 07/20/[address] [facility] y[facility] DATE CREATED AUTHOR AUTHOR'S ORGANIZ ATION 08/23/2024 [facility] DATE CREATED AUTHOR AUTHOR'S ORGANIZ ATION 09/25/2024 [facility] DATE CREATED AUTHOR AUTHOR'S ORGANIZ ATION 01/03/2025 [facility] DATE CREATED AUTHOR AUTHOR'S ORGANIZ ATION 01/04/2025 [facility] DATE CREATED AUTHOR AUTHOR'S ORGANIZ ATION 01/12/2025 [facility] Reason for Visit (unrecogniz ed section and content) Reason Comments Follow-up Reason Comments Skin Check Reason Comments Follow-up [facility] [place] Reason Comments Establish Care Specialty Diagnoses / Procedures Referred By Contchavez t Referred To Contact Cardiology Diagnoses NSTEMI (non-ST elevated myocardial infarction) (HCC) Hypertension, unspecified type Le Huitron, INTERNATIONAL RECRUITER [address] [place] [address] Phone: tel: fax: Juan Domingo MD [address] [place] [address] Phone: tel: fax: Referral ID Status Reason Start Date Expiration Date Visits Re quested Visits Authorized [id number] Closed 08/17/2024 08/17/2025 1 1 Reason Onset Date Comments Medication Refill 09/29/2024 Care Teams (unrecognized sec tion and content) Team Status: Active Member Role Status Dates Le Huitron , ORE MIXER-C Primary Care Provider Active Team Status: Inactive Member Role Status Dates Le Huitron ORE MIXER-C Primary Care Provider Active Start: July 05, 2024 End: July 06, 2024 Mahendra Garcia MD Admit Provider Active Start: July 05, 2024 End: July 06, 2024 Christina Julien MD Attending Provider Active Star t: July 05, 2024 End: July 06, 2024 Team Status: Inactive Member Role Status Dates Le Huitron ORE MIXER-C Primary Care Provider Active Start: July 07, 2024 End: July 07, 2024 Rigoberto Alfaro DO Emergency Provider Active Start: July 07, 2024 End: July 07, 2024 Set Up Mechanic Stamping Machines Relationship Specialty Start Date End Date Le Huitron APRN-CNP [facility] [place] [address] PCP - General 08/08/24 Set Up Mechanic Stamping Machines Relationship Specialty Start Date End Date Le Huitron CNP [address] [place] [address] PCP - General Nurse Practitioner 08/17/24 Set Up Mechanic [employer]amping Machines Relationship Specialty Start Date End Date Le Huitron APRN-CNP [address] [place] [address] PCP - General 08/08/24 Set Up Mechanic Stamping Machines Relationship Specialty Start Date End Date Le Huitron CNP [address] [place] [address], [place] [address] PCP - General Nurse Practitioner 08/17/24 Set Up Mechanic [employer]amping Mach[employer] Relationship Specialty Start Date End Date Le Huitron GENIE Zimmer [address] [place] [address] PCP - General Nurse Practitioner 08/17/24 Set Up Mechanic Stamping Machines Relationship Specialty Start Date End Date Cristiane Le Zimmer CNP [address] [place], [place] [id number] PCP - General Nurse Practitioner 08/17/24 FOR [...] BE BASED ON THE PRIMARY CLINICAL RECORDS. [employer] provides no warranty or guarantee of the accuracy or completeness of information in this document.
[2025-02-18] MEDS: METOPROLOL TARTRATE 5 MG/5 ML VIAL IVP (09:32)
[2025-02-18] MEDS: DILTIAZEM HCL 25 MG/5 ML VIAL 20 MG IV (09:51)
--- NOTE | 2025-02-18 09:54 | ECG_ITS ---
The [facility] Test Date: 2025-02-18 Pat Name: KEELY CHOPRA Department: Room: - Gender: Female Pbx Inspector: : 1955 Requested By: [id number] Order Number: [id number] Reading MD: NICK RUBIN M.D. Measurements Intervals [place] Rate: 87 P: -30 UT: 202 QRS: 13 QRSD: 78 T: 33 QT: 332 QTc: 376 Interpretive Statements 1100 Sinus rhythm 4068 Nonspecific Twave abnormality 9130 borderline ECG Compared to ECG 02/18/2025 09:34:09 Atrial flutter is no longer present ST (T wave) deviation no longer present Electronically Signed On 02-19-2025 13:25:29 EDT by NICK RUBIN M.D.
[2025-02-18 10:03] LABS: Hematocrit 43.5 % (36.0-48.0); Hemoglobin 14.8 g/dL (12.0-16.0); Immature Granulocytes Abs Auto 0.02 10^3/uL (0.00-0.03); Immature Granulocytes Pct Auto 0.2 % (0.0-0.5); Lymphocytes Absolute Auto 4.7 10^3/uL (1.2-3.8); Mean Corpuscular HGB Conc 34.0 g/dL (29.9-35.2); Mean Corpuscular Hemoglobin 28.5 pg (26.7-34.0); Mean Corpuscular Volume 83.8 fL (81.0-99.0); Platelet Count 252 10^3/uL (150-450); Red Blood Count 5.19 10^6/uL (4.20-5.40); White Blood Count 10.1 10^3/uL (4.0-11.0)
--- NOTE | 2025-02-18 10:18 | ED.CHESTPAI1 ---
HPI - Chest Pain General Chief Complaint: Chest Pain Stated Complaint: CHEST PAIN Time Seen by Provider: 02/18/25 09:19 Source: patient Mode of arrival: Wheelchair Limitations: no limitations History of Present Illness HPI narrative: The patient is a 69-year-old female who have history of SVT and she take Cardizem, the patient was going out when she noted that she started having chest pressure like something sitting on her chest and pain radiating to both arms, the patient had no dizziness on arrival but she was tired, the symptoms started 20 minutes before arrival and the patient had no other complaints or concerns over the last week except for the fact that for the last 24 hours the patient has not been able to sleep. She denies any headache or chest pain but she mentioned that every time she tried to sleep she is not able to continuously sleep for the last 24 hours so that she has been awake for that reason Related Data Home Medications ?Medication ?Instructions ?Recorded ?Confirmed alprazolam 0.25 mg tablet 0.25 mg PO DAILY PRN anxiety 07/05/24 02/18/25 ropinirole 0.25 mg tablet 0.25 mg PO BEDTIME 07/05/24 02/18/25 sertraline 100 mg tablet 100 mg PO Q24H 07/05/24 02/18/25 Previous Rx's ?Medication ?Instructions ?Recorded diltiazem HCl 90 mg tablet 90 mg PO TID 20 days #60 tabs 02/18/25 Allergies Allergy/AdvReac Type Severity Reaction Status Date / Time No Known Drug Allergies Allergy Verified 02/18/25 09:18 Review of Systems ROS Status of ROS 10 or more systems reviewed and unremarkable except as noted in history and below [facility] Social History Little interest or pleasure in doing things: not at all Feeling down, depressed, or hopeless: not at all Exam Narrative Exam Narrative: Nurses notes and vital signs reviewed and patient is not hypoxic. General: Well-appearing and in no apparent distress. Skin: Warm, dry, no pallor noted. No rash. Head: Normocephalic, atraumatic. Cardiovascular: Regular Rate and Rhythm without murmur, gallop or rub. Respiratory: No accessory muscle use or respiratory distress. Lungs are clear to auscultation, no wheezing, rales or rhonchi Chest Wall: no tenderness GI: Abdomen is soft, non-distended. Normal bowel sounds. No masses appreciated. No tenderness to palpation. No rebound, guarding, or rigidity noted. Neurological: A&O x4. No cranial nerve dysfunction observed. No truncal ataxia. Moves all extremities. Sensation intact. Psychiatric: Cooperative and interactive. Normal mood and affect. Constitutional Vital Signs, click to edit/add: Last Vital Signs Temp 98.7 F 02/18/25 09:19 Pulse 179 H 02/18/25 09:19 Resp 20 02/18/25 09:19 BP 108/86 02/18/25 09:19 Pulse Ox 98 02/18/25 09:19 O2 Del Method Room Air 02/18/25 09:19 Course Vital Signs Vital signs: Vital Signs Temperature 98.7 F 02/18/25 09:19 Pulse Rate 179 H 02/18/25 09:19 Respiratory Rate 20 02/18/25 09:19 Blood Pressure 108/86 02/18/25 09:19 Pulse Oximetry 98 02/18/25 09:19 Oxygen Delivery Method Room Air 02/18/25 09:19 Temperature 98.7 F 02/18/25 09:19 Pulse Rate 179 H 02/18/25 09:19 Respiratory Rate 20 02/18/25 09:19 Blood Pressure 108/86 02/18/25 09:19 Pulse Oximetry 98 02/18/25 09:19 Oxygen Delivery Method Room Air 02/18/25 09:19 MDM - Chest Pain MDM Narrative Medical decision making narrative: The patient EKG upon arrival is showing heart rate of 178 mostly SVT as it is irregular there was some ST depression noted in multiple leads including V4 V5 and V6 as well as 2 and 3 and aVF The patient then had her heart slowed down with Lopressor still showing SVT Lopressor 5 mg was given the patient EKG was showing still supraventricular rate of 143 still showing some mild ST depression in those leads mentioned above The patient then was given 1 dose of Cardizem 20 mg IV after which her heart rate is 87 with a sinus rhythm that ST depression resolved the patient have no more symptoms The patient CBC and chemistry showed no acute pathology and the troponin was negative on the first set Chest x-ray showed no acute pathology Patient troponin went up from 6-30 but the patient symptoms as well as the EKG went back to normal and I discussed her case with cardiology service Specially that the patient already had an cardiac cath done 3 months ago that showed no acute pathology The patient was discharged home after she did not have any symptom started on Cardizem 90 mg 3 times daily for the next few days until she 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 The patient agrees with the following Diagnosis and Treatment plan and the patient will be discharged home. Lab Data Labs: Lab Results 02/18/25 02/18/25 Range/Units 09:28 11:27 WBC 10.1 (4.0-11.0) 10^3/uL RBC 5.19 (4.20-5.40) 10^6/uL Hgb 14.8 (12.0-16.0) g/dL Hct 43.5 (36.0-48.0) % MCV 83.8 (81.0-99.0) fL MCH 28.5 (26.7-34.0) pg MCHC 34.0 (29.9-35.2) g/dL RDW 13.7 (11.0-15.0) % Plt Count 252 (150-450) 10^3/uL MPV 9.2 L (9.5-13.5) fL Neut % (Auto) 41.6 L (43.0-75.0) % Lymph % (Auto) 46.5 (20.5-60.0) % [place] % (Auto) 8.4 (1.7-12.0) % Eos % (Auto) 2.7 (0.9-7.0) % Baso % (Auto) 0.6 (0.2-2.0) % Neut # (Auto) 4.2 (1.4-6.5) 10^3/uL Lymph # (Auto) 4.7 H (1.2-3.8) 10^3/uL [place] # (Auto) 0.9 H (0.3-0.8) 10^3/uL Eos # (Auto) 0.3 (0.0-0.7) 10^3/uL Baso # (Auto) 0.1 (0.0-0.1) 10^3/uL Abs Immat Gran (auto) 0.02 (0.00-0.03) 10^3/uL Imm/Tot Granulo (auto) 0.2 (0.0-0.5) % PT 10.3 (9.0-11.6) sec INR 0.97 Sodium 138 (136-145) mmol/L Potassium 4.1 (3.5-5.1) mmol/L Chloride 100 (98-107) mmol/L Carbon Dioxide 25.3 (21.0-32.0) mmol/L Anion Gap 16.8 BUN 14.0 (7.0-18.0) mg/dL Creatinine 0.85 (0.55-1.02) mg/dL Est GFR ( Amer) >60 (>=60 mL/min/1.73m^2) Est GFR (Non-Af Amer) >60 (>=60 mL/min/1.73m^2) BUN/Creatinine Ratio 16.5 Glucose 120 H (74-106) mg/dL Calcium 9.8 (8.5-10.1) mg/dL Total Bilirubin 0.5 (0.2-1.0) mg/dL AST 28 (15-37) U/L ALT 43 (14-59) U/L Alkaline Phosphatase 93 (46-116) U/L Troponin I High Sens 5.9 30.5 (4.0-51.3) pg/mL Total Protein 8.4 H (6.4-8.2) g/dL Albumin 4.2 (3.4-5.0) g/dL Globulin 4.2 g/dL Albumin/Globulin Ratio 1.0 Discharge Plan Discharge Chief Complaint: Chest Pain Clinical Impression: SVT (supraventricular tachycardia) Patient Disposition: Home, Self-Care Time of Disposition Decision: 12:51 Condition: Good Prescriptions / Home Meds: New diltiazem HCl 90 mg tablet 90 mg PO TID 20 Days Qty: 60 0RF Discontinued diltiazem HCl 180 mg capsule,extended release 24hr 60 mg PO BID No Action alprazolam 0.25 mg tablet 0.25 mg PO DAILY PRN (Reason: anxiety) sertraline 100 mg tablet 100 mg PO Q24H ropinirole 0.25 mg tablet 0.25 mg PO BEDTIME Print Language: Citizen Of [place] Instructions: Supraventricular Tachycardia (ED) Additional Instructions: The patient is to follow up with primary care physician in next 2-3 days or to return to the emergency department should any of the signs or symptoms worsen or new symptoms develop. The patient agrees with the following Diagnosis and Treatment plan and the patient will be discharged home. Referrals: LE SAUER [Primary Care Provider, [employer] FIELD AGENT] - 1 week
[2025-02-18 10:19] LABS: Alanine Aminotransferase 43 U/L (14-59); Albumin Globulin Ratio 1.0; Albumin Level 4.2 g/dL (3.4-5.0); Alkaline Phosphatase 93 U/L (46-116); Anion Gap 16.8; Aspartate Amino Transferase 28 U/L (15-37); Blood Urea Nitrogen 14.0 mg/dL (7.0-18.0); Calcium 9.8 mg/dL (8.5-10.1); Carbon Dioxide 25.3 mmol/L (21.0-32.0); Chloride 100 mmol/L (98-107); Estimated GFR (African America >60 (>=60 mL/min/1.73m^2); Estimated GFR (Non-African Ame >60 (>=60 mL/min/1.73m^2); Globulin 4.2 g/dL; Glucose 120 mg/dL (74-106); INR 0.97; Potassium 4.1 mmol/L (3.5-5.1); Prothrombin Time 10.3 sec (9.0-11.6); Sodium 138 mmol/L (136-145); Total Protein 8.4 g/dL (6.4-8.2)
--- NOTE | 2025-02-18 17:29 | ECG_ITS ---
The [facility] Test Date: 2025-02-18 Pat Name: KEELY CHOPRA Department: Room: - Gender: Female Project Safety Manager: : 1955 Requested By: [id number] Order Number: [id number] Reading MD: NICK RUBIN M.D. Measurements Intervals [place] Rate: 143 P: -48264 CO: -59805 QRS: 37 QRSD: 80 T: 4 QT: 296 QTc: 379 Interpretive Statements Supraventricular tachycardia, likely atrial flutter [address] depression [address] & Twave abnormality 9150 abnormal ECG Compared to ECG 02/18/2025 09:26:40 Supraventricular tachycardia still present ST (T wave) deviation still present Atrial flutter is suggested on the current ECG Electronically Signed On 02-19-2025 13:24:57 EDT by NICK RUBIN M.D.
== END 2025-02-18 13:05 | disposition home or self-care (01) ==
PROVIDERS: Emergency Provider Emergency Medicine; PCP Nurse Practitioner
DX: I47.10 Supraventricular tachycardia, unspecified (principal); Z79.899 Other long term (current) drug therapy
CPT/HCPCS: 36415; 71045; 80053; 84484; 85025; 85610; 93005; 96374; 96375; 99285

== ENCOUNTER 2025-02-28 04:49 | Emergency (ER) | payer MEDICARE, OTHER, SELFPAY ==
--- OUTSIDE RECORDS SUMMARY | 2010-12-31 | XMS_ITS | Encounter Summary ---
Author Organization [facility] Address [address] [place] [address], [address] [place] [address] Care Team Providers Care Engineer Intern Name Role Phone Unavailable Primary Care Provider Unavailabl e Encounter Details Date Type Department Care Team (Late st Contact Info) Description 12/31/2010 Hospital Encounter [facility] Department [address] [phone] Drew Corona MD 27 [facility] [address] [phone] Social History Tobacco Use Types Packs/Day Years Used Date Smoking Tobacco: Never Assessed Comments Unknown Sex and Gender Information Value Date Recorded Sex Assigned at Not on file Legal Sex Female 2:48 PM EST Gender Identity Not on file Sexual Orientation Not on file documented as of this encounter Plan of Treatment Not on file documented as of this encounter Visit Diagnoses Not on filedocumented in this encounter
[2025-02-28] VITALS (24 sets, daily range): BP systolic 121–176; BP diastolic 67–84; PULSE 57–84; TEMP 36.6; O2SAT 94–100; BMI 47.4
--- NOTE | 2025-02-28 05:00 | ECG_ITS ---
The [facility] Test Date: 2025-02-28 Pat Name: KEELY CHOPRA Department: Room: - Gender: Female Graphic Illustrator: : 1955 Requested By: [id number] Order Number: [id number] Reading MD: NICK RUBIN M.D. Measurements Intervals [place] Rate: 74 P: 180 VT: 182 QRS: 15 QRSD: 74 T: 45 QT: 366 QTc: 393 Interpretive Statements NORMAL SINUS RHYTHM ARTIFACT IN LEAD(S) Normal ECG Compared to ECG 02/18/2025 09:54:12 No significant changes Electronically Signed On 02-28-2025 7:13:14 EDT by NICK RUBIN M.D.
--- NOTE | 2025-02-28 05:13 | ED.CHESTPAI1 ---
HPI - Chest Pain General Chief Complaint: Chest Pain Stated Complaint: JAW PAIN, CHEST PRESSURE Time Seen by Provider: 02/28/25 04:58 Source: patient Mode of arrival: walk-in Limitations: no limitations History of Present Illness HPI narrative: This 69-year-old female with a history of SVT and atrial flutter who is currently on Cardizem is brought to the emergency department by her . The patient states she has not been able to sleep all night because she was not feeling well. She started not feeling well yesterday. She states she has pain in the back of her neck and feels very dizzy and shaky. She also states that she felt like her heart was beating hard. She denies any abdominal pain. She has not had a fever. She has no lower extremity pain or swelling. She denies feeling short of breath. She was seen here on February 18 and was in SVT at that time. The SVT was broken with Cardizem. After consultation with her teamcenter consultant her Cardizem was increased from 60 to 90 mg. She has not had any additional medication changes. She has not had any slurred speech, confusion or focal neurologic symptoms. Related Data Home Medications ?Medication ?Instructions ?Recorded ?Confirmed alprazolam 0.25 mg tablet 0.25 mg PO DAILY PRN anxiety 07/05/24 02/28/25 ropinirole 0.25 mg tablet 0.25 mg PO BEDTIME 07/05/24 02/28/25 sertraline 100 mg tablet 100 mg PO Q24H 07/05/24 02/28/25 Previous Rx's ?Medication ?Instructions ?Recorded diltiazem HCl 90 mg tablet 90 mg PO TID 20 days #60 tabs 02/18/25 Allergies Allergy/AdvReac Type Severity Reaction Status Date / Time No Known Drug Allergies Allergy Verified 02/28/25 05:03 Review of Systems ROS Status of ROS 10 or more systems reviewed and unremarkable except as noted in history and below PFSH PFSH Social History Little interest or pleasure in doing things: not at all Feeling down, depressed, or hopeless: not at all Exam Narrative Exam Narrative: Vital signs and Nursing Notes reviewed: Patient is afebrile with a normal pulse, blood pressures normal at 132/84, she is not hypoxic with pulse ox of 99% on room air General: Awake, alert, oriented, overweight female lying on the bed with her eyes closed, GCS 15, no respiratory distress HEENT: Normocephalic atraumatic, mucous membranes are moist and pink, eyes are clear, normal conjunctiva, vision is grossly intact, posterior pharynx is normal in appearance. Neck: Supple, no meningeal signs, no reproducible tenderness in the posterior cervical spine with the patient is complaining with pain, no bony tenderness or step-off Chest: Lungs are clear to auscultation with good air entry, there is no wheezing rhonchi or rales appreciated no accessory muscle use, patient is speaking in complete sentences-no chest wall tenderness to palpation CVS: Regular rate and rhythm S1-S2, no murmurs rubs or gallops, pulses are brisk and equal bilaterally ABD: Soft, nondistended, nontender, no rebound guarding or rigidity, bowel sounds are normal, no pulsatile masses appreciated Extremities: Moving all extremities, no lower extremity tenderness or swelling noted, negative Homans' sign, pulses are brisk and equal bilaterally Skin: Normal in appearance without rash,pallor, petechiae or purpura Neuro: No focal deficits; speech is clear, dialysis chief equipment technician strength is intact, patient is able to pull her self to a seated position indicating no truncal ataxia or weakness, no facial droop Constitutional Vital Signs, click to edit/add: Last Vital Signs Temp 97.9 F 02/28/25 04:53 Pulse 78 02/28/25 04:53 Resp 17 02/28/25 04:53 BP 132/84 02/28/25 04:53 Pulse Ox 99 02/28/25 04:53 O2 Del Method Room Air 02/28/25 04:53 Course Vital Signs Vital signs: Vital Signs Temperature 97.9 F 02/28/25 04:53 Pulse Rate 78 02/28/25 04:53 Respiratory Rate 17 02/28/25 04:53 Blood Pressure 132/84 02/28/25 04:53 Pulse Oximetry 99 02/28/25 04:53 Oxygen Delivery Method Room Air 02/28/25 04:53 Temperature 97.9 F 02/28/25 04:53 Pulse Rate 78 02/28/25 04:53 Respiratory Rate 17 02/28/25 04:53 Blood Pressure 132/84 02/28/25 04:53 Pulse Oximetry 99 10/14/25 04:53 Oxygen Delivery Method Room Air 02/28/25 04:53 MDM - Chest Pain MDM Narrative Medical decision making narrative: 69-year-old female with a history of SVT and atrial flutter presents for evaluation of insomnia with posterior neck pain, dizziness and chest pressure. She was seen here recently and her Cardizem dose was increased. The patient stated that she felt like her heart was pounding. Her EKG was atrial rhythm in the 70s. She was placed on a scrap piler and has been monitored that any ectopy or SVT. She states she has not been able to sleep and is under a lot of stress because her and son were recently both diagnosed with cancer the same month and she has her own medical issues. She requested something to relax and something for the pain in her neck. She was given p.o. Valium and 4 mg of IV morphine and 4 mg of Zofran and IV fluids. A cardiac workup was ordered. She has a normal white count and hemoglobin. Electrolytes are normal. Troponin is normal. On reevaluation she was feeling better. She was medicated with 324 mg baby aspirin for the chest discomfort as she is not on any blood thinners at this time. A repeat troponin will be ordered and she will be signed out to the incoming physician at 7 AM. Medical Records Data Attestation: I reviewed the patient's medical records. Lab Data Attestation: I reviewed the patient's lab results. Labs: Lab Results 02/28/25 Range/Units 05:00 WBC 7.1 (4.0-11.0) 10^3/uL RBC 5.01 (4.20-5.40) 10^6/uL Hgb 14.2 (12.0-16.0) g/dL Hct 41.9 (36.0-48.0) % MCV 83.6 (81.0-99.0) fL MCH 28.3 (26.7-34.0) pg MCHC 33.9 (29.9-35.2) g/dL RDW 13.8 (11.0-15.0) % Plt Count 196 (150-450) 10^3/uL MPV 9.2 L (9.5-13.5) fL Neut % (Auto) 48.2 (43.0-75.0) % Lymph % (Auto) 39.2 (20.5-60.0) % [place] % (Auto) 8.8 (1.7-12.0) % Eos % (Auto) 3.1 (0.9-7.0) % Baso % (Auto) 0.4 (0.2-2.0) % Neut # (Auto) 3.4 (1.4-6.5) 10^3/uL Lymph # (Auto) 2.8 (1.2-3.8) 10^3/uL [place] # (Auto) 0.6 (0.3-0.8) 10^3/uL Eos # (Auto) 0.2 (0.0-0.7) 10^3/uL Baso # (Auto) 0.0 (0.0-0.1) 10^3/uL Abs Immat Gran (auto) 0.02 (0.00-0.03) 10^3/uL Imm/Tot Granulo (auto) 0.3 (0.0-0.5) % Sodium 139 (136-145) mmol/L Potassium 3.9 (3.5-5.1) mmol/L Chloride 101 (98-107) mmol/L Carbon Dioxide 25.4 (21.0-32.0) mmol/L Anion Gap 16.5 BUN 14.0 (7.0-18.0) mg/dL Creatinine 0.73 (0.55-1.02) mg/dL Est GFR ( Amer) >60 (>=60 mL/min/1.73m^2) Est GFR (Non-Af Amer) >60 (>=60 mL/min/1.73m^2) BUN/Creatinine Ratio 19.2 Glucose 107 H (74-106) mg/dL Calcium 9.3 (8.5-10.1) mg/dL Total Bilirubin 0.4 (0.2-1.0) mg/dL AST 19 (15-37) U/L ALT 25 (14-59) U/L Alkaline Phosphatase 93 (46-116) U/L Troponin I High Sens 6.1 (4.0-51.3) pg/mL Total Protein 8.0 (6.4-8.2) g/dL Albumin 3.9 (3.4-5.0) g/dL Globulin 4.1 g/dL Albumin/Globulin Ratio 1.0 ECG Data Attestation: I personally reviewed and interpreted this ECG as follows: (Rapid atrial rhythm at 74 bpm, normal axis, interpretation limited by patient movement, no acute ST segment elevation or T wave inversion) Heart Score History: Moderately Suspicious ECG: Normal Age: >65 years Risk Factors: 1 or 2 Risk Factors Troponin: <Normal Limit Total Heart Score Recommendations & Risks:: 4 Discharge Plan Discharge Patient Disposition: Still a Patient
--- OUTSIDE RECORDS SUMMARY | 2025-02-28 05:17 | XMS_ITS | Clinical Summary ---
Author Organization [facility] Address [address] [place] [address], [address] [place] [address] Care Team Providers Care Machine Maintenance Supervisor Name Role Phone Unavailable Primary Care Provider Unavailabl e Social History Tobacco Use Types Packs/Day Years Used Date Smoking Tobacco: Never Assessed Comments Unknown Sex and Gender Information Value Date Recorded Sex Assigned at Not on file Legal Sex Female 2:48 PM EST Gender Identity Not on file Sexual Orientation Not on file Plan of Treatment Not on file
--- OUTSIDE RECORDS SUMMARY | 2025-02-28 05:17 | XMS_ITS | Clinical Summary ---
Author Organization [facility] Address [address] [facility] [place] [address] Care Team Providers Care Mechanical Engineering Manager Name Role Phone Unavailable Primary Care Provider Unavailabl e Allergies Active Allergy Reactions Criticality Noted Date Comments Azithromycin Medium 06/15/2023 Other Reaction(s): Unknown Medications benzonatate (Tessalon) 200 MG capsule Take 200 mg by mouth in the morning and 200 mg in the evening and 200 mg before bedtime. 3 Active bisoprolol-hyd roCHLOROthiazi de (Ziac) 5-6.25 MG tablet Take 1 tablet by mouth in the morning. Active DESONIDE EX See Instructions, Refill(s) 0, 0.05% topical cream Apply small amount 3 times a day as needed 3 Active metFORMIN (Glucophage) 500 MG tablet Take 500 mg by mouth in the morning. Active rOPINIRole (Requip) 0.25 MG tablet Take 0.25 mg by mouth 3 Active Ozempic, 0.25 or 0.5 MG/DOSE, 2 MG/1.5ML solution pen-injector inject 0.25 milligrams subcutaneously every week 3 Active Semaglutide-We ight Management 1 MG/0.5ML solution auto-injector Inject 1.2 mg under the skin 4 Active sertraline (Zoloft) 100 MG tablet Take 100 mg by mouth 3 Active fluocinonide (Lidex) 0.05 % creamIndicatio ns:Other atopic dermatitis Apply to affected areas, up to twice a day when flared, do not use one the face, groin, or underarms, 30 day supply 60 g 11 4 Active Active Problems No known active problems Family History Medical History Relation Name Comments Cancer Mother Hypertension Mother Relation Name Status Comments Father Alive Mother Social History Tobacco Use Types Packs/Day Years Used Date Smoking Tobacco: Never Tobacco Cessation:Counseling Given: Not Answered Alcohol Use Standard Drinks/Week Comments Never 0 (1 standard drink = 0.6 oz pur e alcohol) caffeine: 1-2 cups per day Comments Unknown Sex and Gender Information Value Date Recorded Sex Assigned at Not on file Legal Sex Female 7:04 PM EDT Gender Identity Not on file Sexual Orientation Not on file Last Filed Vital Signs Vital Sign Reading Time Taken Comments Blood Pressure - - Pulse - - Temperature - - Respiratory Rate - - Oxygen Saturation - - Inhaled Oxygen Concentration - - Weight 135 kg (297 lb) 05/27/2018 12:00 PM EST Height 152.4 cm (5') 05/27/2018 12:00 PM EST Body Mass Index 58 05/27/2018 12:00 PM EST Plan of Treatment Upcoming Encounters Date Type Department Care Team (Late st Contact Info) Description 03/21/2025 10:35 AM EST Office Visit [facility] [address] [place] [id number] Chapis Ortez, RAO-BUSINESS SUPPORT PROFESSIONAL [address] [place] [address] Insurance MEDICARE [employer]
--- OUTSIDE RECORDS SUMMARY | 2025-02-28 05:17 | XMS_ITS | Clinical Summary ---
Author Organization [facility] Address [address] [place] [address] Care Team Providers Care Trouble Tracer Name Role Phone Joan Huitron CNP Primary Care Provider [phone] Juan Domingo MD Unavailable Allergies Active Allergy Reactions Criticality Noted Date Comments Azithromycin Unknown High 06/15/2023 Other Reaction(s): Unknown Medications ALPRAZolam (XANAX) 0.25 MG tablet Take 1 (one) tablet (0.25 mg total) by mouth nightly as needed . 09/07/2023 Active rOPINIRole (REQUIP) 0.25 MG tablet Take 1 (one) tablet (0.25 mg total) by mouth nightly . Active sertraline (ZOLOFT) 100 MG tablet Take 1 (one) tablet (100 mg total) by mouth daily . 12/01/2022 Active diltiazem (CARDIZEM) 60 MG tablet Take 1 (one) tablet (60 mg total) by mouth 3 (three) times a day . 270 tablet 1 09/29/2024 Active Active Problems No known active problems Family History Medical History Relation Comments Heart attack Neg Hx Heart disease Neg Hx Heart failure Neg Hx Hypertension Neg Hx Stroke Neg Hx Transient ischemic attack Neg Hx Social History Tobacco Use Types Packs/Day Years Used Date Smoking Tobacco: Never Smokeless Tobacco: Never Tobacco Cessation:Counseling Given: Not Answered Alcohol Use Standard Drinks/Week Comments Not Currently 0 (1 standard drink = 0.6 oz pur e alcohol) Comments Unknown Sex and Gender Information Value Date Recorded Sex Assigned at Not on file Legal Sex Female 5:36 PM EDT Gender Identity Not on file Sexual Orientation Not on file Last Filed Vital Signs Vital Sign Reading Time Taken Comments Blood Pressure 138/91 09/23/2024 9:27 AM EDT Pulse 82 09/23/2024 9:26 AM EDT Temperature - - Respiratory Rate - - Oxygen Saturation - - Inhaled Oxygen Concentration - - Weight - - Height - - Body Mass Index - - Plan of Treatment Upcoming Encounters Date Type Department Care Team (Late st Contact Info) Description 03/20/2025 10:00 AM EST Office Visit [facility] [address] [place] [address] Juan Domingo MD [address] [place] [address] Health Maintenance Due Date Last Done Comments CT Colonography 1955 Dexa Scan 1955 Fecal DNA 1955 Fecal occult blood test (FOBT,FIT) 1955 Tetanus: Every 10yrs 1955 Medicare Wellness Visit 1956 Depression Screening/Follow- Up (PHQ-2/9) 1965 Hepatitis C Screening 08/03/1971 Flexible sigmoidoscopy 08/03/2003 Respiratory Syncytial Virus Immunization: Risk, 60-74 Risk, or 75+ (1 - Risk 60-74 years 1-dose series) 2013 Falls Risk Assessment 2018 Pneumococcal Vaccine: Age 50 + (2 of 2 - PCV20 or PCV21) 03/14/2021 03/14/2020 Colonoscopy 05/18/2023 05/18/2013 Colorectal Cancer Screening/Monitoring 05/18/2023 COVID-19 Vaccine (2023-2 5 season) 2025 03/25/2024, 04/01/2023, 02/25/2022, Additional history exists Influenza Vaccine (#1) 2025 , 02/23/2024, 04/01/2023, Additional history exists Mammogram 06/08/2025 06/08/2024, 06/03/2023 Zoster Vaccines Completed 06/23/2019, 03/28/2019 Insurance MEDICARE PART A [place] [address] [facility] Care Teams Trouble Tracer Relationship Specialty Start Date End Date Joan Huitron CNP [address] [place] [address] PCP - General Nurse Practitioner 08/17/24 Juan Domingo MD [address] [place] [address] Consulting Physician Cardiac Electrophysiology 02/21/25
--- OUTSIDE RECORDS SUMMARY | 2025-02-28 05:18 | XMS_ITS | Clinical Summary ---
Author Organization [facility] Address [address] [place] [address] Phone Care Team Providers Care Caddy Master Name Role Phone Joan Huitron RISK CONTROL ANALYST-DIRECTOR OF PRIMARY CARE Primary Care Provider [phone] Allergies No known active allergies Medications ALPRAZolam (Xanax) 0.25 mg tablet Take 1 tablet (0.25 mg) by mouth as needed at bedtime for anxiety. 5 Active semaglutide, weight loss, 1 mg/0.5 mL pen injector Inject 1.2 mg under the skin 1 (one) time per week. 4 Active rOPINIRole (Requip) 0.25 mg tablet Take 1 tablet (0.25 mg) by mouth once daily at bedtime. Active Eliquis 5 mg tablet Take 1 tablet (5 mg) by mouth 2 times a day. Active sertraline (Zoloft) 100 mg tablet Take 1 tablet (100 mg) by mouth once daily. Active flecainide (Tambocor) 50 mg tabletIndications :Paroxysmal atrial fibrillation (Multi) Take 1 tablet (50 mg) by mouth 2 times a day. 180 tablet 3 5 08/09/19 26 Active Active Problems Problem Noted Date Diagnosed Date Paroxysmal atrial fibrillation (Multi) 5 Myocardial infarction type 2 (Multi) 08/08/2024 Anticoagulated 08/08/2024 Body mass index (BMI) of 45.0 to 49.9 in adult 0 08/08/2024 Palpitations 08/08/2024 Never smoked tobacco 08/08/2024 Immunizations Immunization Administration Dates Next Due Flu vaccine, quadrivalent, h igh-dose, preservative free, age 65y+ (FLUZONE) 02/25/2022 Flu vaccine, trivalent, pres ervative free, HIGH-DOSE, age 65y+ (Fluzone) 03/25/2024 Influenza, Seasonal, Quadriv alent, Adjuvanted 04/01/2023,05/20/2021,03/14/2020 Influenza, Unspecified 04/01/2023 Influenza, seasonal, injectable 02/23/2024 Influenza, trivalent, adjuvanted 05/31/2019 Pneumococcal conjugate vacci ne, 13-valent (PREVNAR 13) 03/14/2020 RSV, 60 Years And Older (AREXVY) 04/26/2023 Zoster vaccine, recombinant, adult (SHINGRIX) 06/23/2019,03/28/2019 Family History Medical History Relation Name Comments No Known Problems Brother No Known Problems Father Ovarian cancer Mother No Known Problems Sister Relation Name Status Comments Brother Father Mother Sister Social History Tobacco Use Types Packs/Day Years Used Date Smoking Tobacco: Never Smokeless Tobacco: Never Tobacco Cessation:Counseling Given: Not Answered Alcohol Use Standard Drinks/Week Comments Never 0 (1 standard drink = 0.6 oz pur e alcohol) Comments Unknown Sex and Gender Information Value Date Recorded Sex Assigned at Not on file Legal Sex Female 8:57 AM EST Gender Identity Not on file Sexual Orientation Not on file Last Filed Vital Signs Vital Sign Reading Time Taken Comments Blood Pressure 142/88 08/22/2024 9:04 AM EDT Pulse 67 08/22/2024 9:04 AM EDT Temperature - - Respiratory Rate - - Oxygen Saturation - - Inhaled Oxygen Concentration - - Weight 119 kg (263 lb 3.2 oz) 08/22/2024 9:04 AM EDT Height 157.5 cm (5' 2 ) 08/22/2024 9:04 AM EDT Body Mass Index 48.14 08/22/2024 9:04 AM EDT Plan of Treatment Health Maintenance Due Date Last Done Comments CT Colonography 1953 FIT-DNA (Cologuard) 1953 FIT 1953 Lipid Panel 1955 Medicare Annual Wellness Visit (AWV) 1955 Sigmoidoscopy 1955 MMR Vaccines (1 of 1 - Standard series) 1954 Diabetes Screening 08/03/1971 Hepatitis C Screening 08/03/1971 DTaP/Tdap/Td Vaccines (1 - Tdap) 08/03/1975 Mammogram 1993 Bone Density Scan 2018 Pneumococcal Vaccine (2 of 2 - PPSV23, PCV20, or PCV21) 05/09/2020 03/14/2020 Colonoscopy 05/18/2023 05/18/2013 Colorectal Cancer Screening 05/18/2023 COVID-19 Vaccine ( season) 2025 03/25/2024, 04/01/2023, 02/25/2022, Additional history exists Influenza Vaccine (#1) 2025 , 02/23/2024, 04/01/2023, Additional history exists Zoster Vaccines Completed 06/23/2019, 03/28/2019 RSV High Risk: (Elderly (60+) or Population) Completed 04/26/2023 HIB Vaccines Aged Out No longer eligi ble based on patient's age to complete this topic HPV Vaccines Aged Out No longer eligi ble based on patient's age to complete this topic Hepatitis A Vaccines Aged Out No long er eligible based on patient's age to complete this topic Hepatitis B Vaccines Aged Out No long er eligible based on patient's age to complete this topic IPV Vaccines Aged Out No longer eligi ble based on patient's age to complete this topic Meningococcal Vaccine Aged Out No tye mandy eligible based on patient's age to complete this topic Rotavirus Vaccines Aged Out No longer eligible based on patient's age to complete this topic Insurance MEDICARE PART A AND B [facility] SENIOR SU[facility] MEDIC[facility] Care Teams Caddy Master Relationship Specialty Start Date End Date Joan Huitron, RISK CONTROL ANALYST-DIRECTOR OF PRIMARY CARE [address] [place] [address] PCP - General 08/08/24
--- OUTSIDE RECORDS SUMMARY | 2025-02-28 05:18 | XMS_ITS | Encounter Summary ---
Author Organization [facility] Address [address] [place] [address] Phone Care Team Providers Care Music Journalist Name Role Phone Joan Huitron APRN-WELL SERVICE FLOOR WORKER Primary Care Provider [phone] Encounter Details Date Type Department Care Team (Late st Contact Info) Description 07/05/2024 Scanned Document [facility] [address] [place] [id number] Scanning, Generic Provider Social History Tobacco Use Types Packs/Day Years Used Date Smoking Tobacco: Never Assessed Comments Unknown Sex and Gender Information Value Date Recorded Sex Assigned at Not on file Legal Sex Female 8:57 AM EST Gender Identity Not on file Sexual Orientation Not on file documented as of this encounter Plan of Treatment Not on file documented as of this encounter Procedures Procedure Name Priority Date/Time Associated Diagnosis Comments ECHOCARDIOGRAM 07/05/2024 documented in this encounter Results * Echocardiogram (07/05/2024) Narrative 07/05/2024 Ordered by an unspecified provider. us Generic Provider Scanning CV ECHO PROCEDURES Fin al Result documented in this encounter Visit Diagnoses Not on filedocumented in this encounter Care Teams Music Journalist Relationship Specialty Start Date End Date Joan Huitron APRN-CNP [address] [place], [place] [id number] PCP - General 08/08/24 documented as of this encounter
--- OUTSIDE RECORDS SUMMARY | 2025-02-28 05:18 | XMS_ITS | CCD ---
Author Organization [facility] Informat ion Partnership [facility] Care Team Providers Care Machine Wedger Name Role Phone MEL, DR JOY Benton Consulting Unavailable MEL, DR JOY Benton Attending Unavailable MEL, DR JOY Benton Admitting Unavailable MEL, DR JOY Benton Primary Care Unavailable FOREST, DR YOSSI Pineda Consulting Unavailable MEL, DR JOY Benton Primary Care Unavailable MEL, DR JOY Benton Consulting Unavailable MEL, DR JOY Benton Attending Unavailable MEL, DR JOY Benton Admitting Unavailable Unavailable Primary Care Provider UnavailALECIA Syed Attending Unavailable ALECIA ORTEZ Attending Unavailable ALECIA ORTEZ Attending Unavailable ALECIA ORTEZ Attending Unavailable Cristiane STAINED GLASS ARTIST-CLe Primary Care Provider Mahendra Garcia MD Admit Provider [phone] Christina Julien MD Attending Provider Rigoberto Alfaro DO Emergency Provider UnaLe Solis Primary Care Unavailable Rigoberto Alfaro Admitting Unavailable Rigoberto Alfaro Attending Unavailable Jayashree Chavarria Consulting Unavailable Christina Julien Attending Unavailable Mahendra Garcia Admitting Unavailable Le Huirton Primary Care Unavailable Disha Harp Consulting Unavailable Jose Grant Consulting Unavailable Wilson Sales Consulting Unavail able rToy Vasquez Consulting Unavailable Mynor Crain Consulting Unavailab [...] Unavailable JUAN DOMINGO Attending Unavailable CRISTIANE, LE PIKE Referring Unavailable CRISTIANE, LE PIKE Primary Care Unavailable CRISTIANE, LE PIKE Admitting Unavailable Cristiane, Le Odonnell Attending Unavailable [...] Admitting Unavailable Cristiane, Le Odonnell Attending Unavailable LATASHAGISSELLE Attending Unavailable Allergies Allergy Classification Reported Allergen(s) Allergy Type Date of Onset Reaction(s) Facility (3 sources) Azithromycin; Translations: [Zithromax] Drug Allergy 06-22-2015 [facility] Repository (9 sources) Azithromycin; Translations: [AZITHROMYCIN] [...] aftercare (2 sources) Drug 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; Translations: [FCI (current) use of anticoagulants] Onset: 5 08-08-2024 [...] Reference Range Facility Ambulatory Visit Summaryon 1 Ambulatory Visit Summary Ambulatory Visit Summary KEELY CHOPRA :1955 Visit Date:02/22/2025 Ambulatory Visit Instructions Your Diagnosis SVT (supraventricular tachycardia) Morbid obesity with BMI of 50.0-59.9, adult Nonsmoker Body mass index [BMI] 50.0-59.9, adult Your Care Team Attending Physician - GISSELLE PAGAN CNP Primary Care Physician - Le Montano This Is Your Medications List alprazolam (alprazolam 0.25 mg Tab) diltiazem (diltiazem 90 mg Tab) ropinirole (ropinirole 0.25 mg Tab) sertraline (sertraline 100 mg Tab) Procedures Performed Colonoscopy (05/18/2013), Appendectomy, Arthroscopy, Biopsy of breast, Cataracts, LEXI BSO - Total abdominal hysterectomy and bilateral salpingo-oophorectomy. Discharge Vitals Temperature (Oral) 36.7 ???C Heart Rate (Peripheral) 78 Respiratory Rate 18 Height 153 cm Height 60 in Weight 119.4 kg Weight 263.232 lb BMI 51.01 What to do next Scheduled Follow-Up Appointments Thursday 8:20 AM EST With: Le Montano Where: [place] [id number]- Medications What How Much When Instructions Unchanged alprazolam (alprazolam 0.25 mg Tab) 0.25 Milligram By Mouth Every day prn Dx F41.9 Unchanged diltiazem (diltiazem 90 mg Tab) TAKE 1 TABLET BY MOUTH THREE TIMES DAILY for 20 days Unchanged ropinirole (ropinirole 0.25 mg Tab) 1 [...] depressive disorder, recurrent episode, moderate Morbid obesity with BMI of 50.0-59.9, adult Neck pain Non-STEMI (non-ST elevated myocardial infarction) Nonsmoker Restless leg syndrome Right knee pain Screening [...] signed up for this yet, please contact [employer] at [phone] to get signed up today. Language Information Language assistance services are available as needed. Rita [facility] Family Medicine Office/Clini c Noteon 02-22-2025 Family Medicine Office/Clinic Note Family Medicine Office/Clinic Note Chief Complaint ER Follow up The patient presents with concerns about a recent episode of a racing heart and jaw pressure. HPI Staff Pt presents today for ER follow up ER followup: Hospital: [facility] Visit date: 02/18/25 Symptoms the patient presented with: tachycardia Current concerns: Diltiazem increased to 90mg TID. Does not have enough to last her until she sees net maker. Has been having trouble sleeping. History of Present Illness 69-year-old female patietn of Justus Huitron CNP presenting with follow-up care after an emergency room visit for a racing heart and jaw pressure. The episode occurred four days prior, with an EKG showing a heart rate of 178 bpm, diagnosed as ventricular tachycardia. The patient received intravenous cardizem and 5 mg of metoprolol, with subsequent prescription of diltiazem 90 mg three times daily until her cardiology appointment on March 20. The patient also reports insomnia, for which Seroquel was prescribed, but she has not taken it due to concerns about potential side effects, specifically the risk of exacerbating her racing heart. She has been advised to try the medication despite her concerns, as the adverse effects listed are not guaranteed to occur. Review of Systems PHQ Score Initial Depression Screen Score: 0 SCORE - Cardiovascular: Reports racing heart and jaw pressure. Denies current chest pain. - Neurological: Reports insomnia. Denies trying prescribed Seroquel due to concerns about side effects. Physical Exam Vitals & Measurements T: 36.7 ???C(Oral) HR: 78(Peripheral) RR: 18 BP: 142/80 SpO2: 99% HT: 60 in HT: 153 cm WT: 263.232 lb WT: 119.4 kg BMI: 51.01 General: alert, no acute distress Cardiovascular: regular rate and rhythm, normal peripheral perfusion Respiratory: Lungs CTA, respirations non labored Extremities: no deformity, no trauma Neurological: oriented x 4, LOC appropriate for age speech normal Assessment/Plan 1. SVT (supraventricular tachycardia) (I47.10: Supraventricular tachycardia, unspecified) Reviewed discharge summary and testing completed @ [facility] Encouraged to keep appointment with net maker as scheduled Cardizem 90 mg one po TID - refilled today f/u as scheduled with pcp 2. Morbid obesity with BMI of 50.0-59.9, adult (E66.01: Morbid (severe) obesity due to excess calories) The standard range for ages 18 and older is >=18.5 and < 25 kg/m2. Your BMI today was above this range, this falls in the overweight to obese category and there are medical benefits to weight loss. We can offer counselling, referral, and/or medical support in addressing this problem. Your BMI and weight management will be followed at subsequent visits. 3. Nonsmoker (Z78.9: Other specified health status) - COVID and flu vaccinations deemed safe despite recent cardiac episode. 4. Body mass index [BMI] 50.0-59.9, adult (Z68.43: Body mass index [BMI] 50.0-59.9, adult) BMI 51.01 Orders: diltiazem, 90 mg = 1 tab(s), Oral, TID, TAKE 1 TABLET BY MOUTH THREE TIMES DAILY for 20 days, # 90 tab(s), Refills(s) 0, Pharmacy: [facility], 153, cm, 02/22/25 8:19:00 EDT, Height/Length Dosing, 119.4, kg, 02/22/25 8:19:00 EDT, Weight Dosing Follow-up No qualifying data available Patient Education Supraventricular Tachycardia, Adult, [id number] Problem List/Past Medical History Ongoing Adult BMI 50.0-59.9 kg/sq m Anxiety Blurry vision, right eye Congestion of nasal sinus Cough Facial swelling Fatigue Fluid level behind tympanic membrane of both ears H/o Lyme disease HTN - Hypertension Hx of migraines Insomnia Major depressive disorder, recurrent episode, moderate Morbid obesity with BMI of 50.0-59.9, adult Neck pain Non-STEMI (non-ST elevated myocardial infarction) Nonsmoker Restless leg syndrome Right knee pain Screening for hypercholesterolemia Sinusitis Swollen lymph nodes Ulcer of buccal mucosa Wheezing Historical Lyme disease Migraine Morbid obesity Restless legs syndrome Procedure/Surgical History Colonoscopy (05/18/2013), Appendectomy, Arthroscopy, Biopsy of breast, Cataracts, LEXI BSO - Total abdominal hysterectomy and bilateral salpingo-oophorectomy. Medications alprazolam 0.25 mg Tab, 0.25 mg, Oral, Daily diltiazem 90 mg Tab, 90 mg= 1 tab(s), Oral, TID ropinirole 0.25 mg Tab, 0.25 mg= 1 tab(s), Oral, TID sertraline 100 mg Tab, 100 mg, Oral, Daily, 4 refills Allergies Zithromax (Unknown) Social History Alcohol - Denies Alcohol Use, 08/01/2022 Never., 04/06/2024 Substance Abuse - Denies Substance Abuse, 08/01/2022 Never., 04/06/2024 Tobacco Never (less than 100 in lifetime) Tobacco Use:. Never Smokeless Tobacco Use:. Cigarettes, Ready to change: No. Household tobacco concerns: No. Yes, 02/22/2025 Family History Alcoholism: Father. Diabetes mellitus type 2: Brother. Hypertension: Father and Grandparent. Stroke: Grandparent. Immunizations Vacci (more content not included)... Normal [facility] Comment on above: Result Comment: Elec tronically Signed By: GISSELLE PAGAN CNP\.sandra\Date and Time Signed: 02/22/25 08:55 EDT Reminderson 01-03-2025 Reminders Reminders From: Le Montano To: [facility] [...] 25.4 % (14.0 - 50.0) 01/02/2025 8:56 [place] Auto 7.7 % (4.0 - 14.0) 01/02/2025 8:56 Eos Auto 2.2 % (0.0 - 8.0) 01/02/2025 8:56 Basophil Auto 0.5 % (0.0 - 2.0) 01/02/2025 8:56 Neutro Absolute 3.2 E9/L (2.0 - 7.5) 01/02/2025 8:56 Lymph Absolute 1.3 E9/L (1.0 - 4.0) 01/02/2025 8:56 [place] Absolute 0.4 E9/L (0.2 - 1.0) 01/02/2025 [...] Patient returns call and verbalizes understanding. Normal [facility] Ambulatory Visit Summaryon 0 01-02-2025 [...] 8:20 AM EST With: Le Montano Where: [facility] [address] [address]- Medications What How Much When Instructions Unchanged [...] signed up for this yet, please contact [employer] at [phone] to get signed up today. Language Information Language assistance services are available as needed. Normal [facility] CBC w/ Auto Diffon 5 Basophil Absolute 0.0 E9/L Normal 0.0-0.2 [facility] Comment on above: Performed By: #### 2 [id number] #### [facility] [address] [place] [address] Basophils/100 WBC (Bld) 0.5 % Normal 0.0-2.0 [facility] Comment on above: Performed By: #### 2 [id number] #### [facility] [address] [place] [address] Eos Absolute 0.1 E9/L Normal 0.0-0.5 [facility] Comment on above: Performed By: #### 2 [id number] #### [facility] [address] [place] [address] Eosinophils/100 WBC (Bld) 2.2 % Normal 0.0-8.0 [facility] Comment on above: Performed By: #### 2 [id number] #### [facility] [address] [place] [address] Erythrocyte distribution width (RBC) [Ratio] 14.6 % High 10.9-14.2 [facility] Comment on above: Performed By: #### 2 [id number] #### [facility] [address] [place] [address] Hematocrit (Bld) [Volume fraction] 41.0 % Normal 34.0-46.0 [facility] Comment on above: Performed By: #### 2 [id number] #### [facility] [address] [place] [address] Hemoglobin (Bld) [Mass/Vol] 13.9 g/dL Normal 12.0-16.0 [facility] Comment on above: Performed By: #### 2 [id number] #### [facility] [address] [place] [address] Lymph Absolute 1.3 E9/L Normal 1.0-4.0 [facility] Comment on above: Performed By: #### 2 [id number] #### [facility] [address] [place] [address] Lymphocytes/100 WBC (Bld) 25.4 % Normal 14.0-50.0 [facility] Comment on above: Performed By: #### 2 [id number] #### [facility] [address] [place] [address] MCH (RBC) [Entitic mass] 28.0 pg Normal 27.0-34.0 [facility] Comment on above: Performed By: #### 2 [id number] #### [facility] [address] [place] [address] MCHC (RBC) [Mass/Vol] 33.9 g/dL Normal 31.4-36.0 [facility] Comment on above: Performed By: #### 2 137807 #### [facility] [address] [place] [address] MCV (RBC) [Entitic vol] 82.6 fL Normal 80.0-100.0 [facility] Comment on above: Performed By: #### 2 [id number] #### [facility] [address] [place] [address] [place]m Absolute 0.4 E9/L Normal 0.2-1.0 [facility] Comment on above: Performed By: #### 2 [id number] #### [facility] [address] [place] [address] Monocytes/100 WBC (Bld) 7.7 % Normal 4.0-14.0 [facility] Comment on above: Performed By: #### 2 268140 #### [facility] [address] [place] [address] Neutro Absolute 3.2 E9/L Normal 2.0-7.5 [facility] Comment on above: Performed By: #### 2 694177 #### [facility] [address] [place] [address] Neutro Auto 64.2 % Normal 36.0-75.0 [facility] Comment on above: Performed By: #### 2 233180 #### [facility] [address] [place] [address] Platelet 189.0 E9/L Normal 150.0-500. 0 [facility] Comment on above: Performed By: #### 2 704999 #### [facility] [address] [place] [address] Platelet mean volume (Bld) [Entitic vol] 7.7 fL Normal 6.4-10.8 [facility] Comment on above: Performed By: #### 2 [id number] #### [facility] [address] [place] [address] RBC 5.0 E12/L Normal 4.3-5.9 [facility] Comment on above: Performed By: #### 2 076334 #### [facility] [address] [place] [address] WBC 5.0 E9/L Normal 4.0-11.0 [facility] Comment on above: Performed By: #### 2 [id number] #### [facility] [address] [place] [address] CMPon 01-02-2025 Albumin [Mass/Vol] 4.2 g/dL Normal 3.3-5.0 [facility] Comment on above: Performed By: #### 2 [id number] #### [facility] [address] [place] [address] Albumin/Globulin [Mass ratio] 1.4 {ratio} Normal 1.1-2.2 [facility] Comment on above: Performed By: #### 2 [id number] #### [facility] [address] [place] [address] Alk Phos 72 Int._Unit/L Normal 21-98 [facility] Comment on above: Performed By: #### 2 [id number] #### [facility] [address] [place] [address] ALT 19 Int._Unit/L Normal 6-46 [facility] Comment on above: Performed By: #### 2 113144 #### [facility] [address] [place] [address] Anion gap [Moles/Vol] 10 mmol/L Normal 6-16 [facility] Comment on above: Performed By: #### 2 [id number] #### [facility] [address] [place] [address] AST 18 Int._Unit/L Normal 5-43 [facility] Comment on above: Performed By: #### 2 [id number] #### [facility] [address] [place] [address] Bili Total 0.5 mg/dL Normal 0.0-1.1 [facility] Comment on above: Performed By: #### 2 [id number] #### [facility] [address] [place] [address] BUN/Creat Ratio 19 No Units Normal 10-20 [facility] Comment on above: Performed By: #### 2 [id number] #### [facility] [address] [place] [address] Calcium [Mass/Vol] 9.3 mg/dL Normal 8.9-11.1 [facility] Comment on above: Performed By: #### 2 [id number] #### [facility] [address] [place] [address] Chloride [Moles/Vol] 104 mmol/L Normal 101-111 [facility] Comment on above: Performed By: #### 2 145978 #### [facility] [address] [place] [address] CO2 [Moles/Vol] 27 mmol/L Normal 21-31 [facility] Comment on above: Performed By: #### 2 [id number] #### [facility] [address] [place] [address] Creatinine [Mass/Vol] 0.8 mg/dL Normal 0.5-1.3 [facility] Comment on above: Performed By: #### 2 [id number] #### [facility] [address] [place] [address] Globulin (S) [Mass/Vol] 3.0 g/dL Normal 1.4-4.0 [facility] Comment on above: Performed By: #### 2 [id number] #### [facility] [address] [place] [address] Glucose [Mass/Vol] 99 mg/dL Normal 55-199 [facility] Comment on above: Performed By: #### 2 [id number] #### [facility] [address] [place] [address] Potassium [Moles/Vol] 4.1 mmol/L Normal 3.5-5.3 [facility] Comment on above: Performed By: #### 2 [id number] #### [facility] [address] [place] [address] Protein [Mass/Vol] 7.2 g/dL Normal 6.0-7.8 [facility] Comment on above: Performed By: #### 2 [id number] #### [facility] [address] [place] [address] Sodium [Moles/Vol] 137 mmol/L Normal 135-145 [facility] Comment on above: Performed By: #### 2 [id number] #### [facility] [address] [place] [address] Urea nitrogen [Mass/Vol] 15 mg/dL Normal 5-21 [facility] Comment on above: Performed By: #### 2 [id number] #### [facility] [address] [place] [address] Family Medicine Office/Clini c Noteon 01-02-2025 Family [...] circumstances) pt has been taking semaglutide from [facility]. will send refill. she is maintaining at this point. RTC 3 months 2. Screening for hypercholesterolemia (Z13.220: Encounter for screening for lipoid disorders) lipid panel orderd Ordered: CBC w/ Auto Diff Comprehensive Metabolic Panel Lab Specimen Collect [id number] Lipid Panel Thyroid Stimulating Hormone 3. Fatigue (R53.83: Other fatigue) since having PR pt states she is severely fatigued. will check CBC and TSH. has follow up with Cardiology next month. Ordered: CBC w/ Auto Diff Comprehensive Metabolic Panel Lipid Panel Thyroid Stimulating Hormone 4. Adult BMI 50.0-59.9 kg/sq m (Z68.43: Body mass index [BMI] 50.0-59.9, adult) BMI education given. order for semaglutide highest dose sent to [facility]. Ordered: brompheniramine/dextrometh orphan/PSE, 5 mL, Oral, QID for cough and congestion, 200 mL, Refill(s) 0, [facility], 153, cm, 08/30/24 11:22:00 EDT, Height/Length Dosing, 118.4, kg, 08/30/24 11:22:00 EDT, Weight Dosing cyclobenzaprine, 10 mg = 1 tab(s), Oral, TID, PRN for spasm, # 30 tab(s), Refills(s) 0, Pharmacy: [facility], 153, cm, 07/15/24 9:24:00 EST, Height/Length Dosing, 117.8, kg, 07/15/24 9:24:00 EST, Weight Dosing quetiapine, 25 mg = 1 tab(s), Oral, Bedtime, # 30 tab(s), Refills(s) 1, Pharmacy: [facility], 153, cm, 07/11/24 8:35:00 EST, Height/Length Dosing, 119.3, kg, 07/11/24 8:35:00 EST, Weight Dosing semaglutide, 0.25 mg, SubCutaneous, qWeek, # 4 EA, Refills(s) 0, Pharmacy: [facility], 153, cm, 07/11/24 8:35:00 EST, Height/Length Dosing, 119.3, kg, 07/11/24 8:35:00 EST, Weight Dosing 5. Non-smoker (Z78.9: Other specified health status) continue not smoking Ordered: brompheniramine/dextrometh orphan/PSE, 5 mL, Oral, QID for cough and congestion, 200 mL, Refill(s) 0, [facility], 153, cm, 08/30/24 11:22:00 EDT, Height/Length Dosing, 118.4, kg, 08/30/24 11:22:00 EDT, Weight Dosing cyclobenzaprine, 10 mg = 1 tab(s), Oral, TID, PRN for spasm, # 30 tab(s), Refills(s) 0, Pharmacy: [facility], 153, cm, 07/15/24 9:24:00 EST, Height/Length Dosing, 117.8, kg, 07/15/24 9:24:00 EST, Weight Dosing quetiapine, 25 mg = 1 tab(s), Oral, Bedtime, # 30 tab(s), Refills(s) 1, Pharmacy: [facility], 153, cm, 07/11/24 8:35:00 EST, Height/Length Dosing, 119.3, kg, 07/11/24 8:35:00 EST, Weight Dosing semaglutide, 0.25 mg, SubCutaneous, qWeek, # 4 EA, Refills(s) 0, Pharmacy: [facility], 153, cm, 07/11/24 8:35:00 EST, Height/Length Dosing, 119.3, kg, 07/11/24 8:35:00 EST, Weight Dosing Orders: ondansetron, 4 mg = 1 tab(s), Oral, q6hr, PRN Nausea/Vomiting, # 20 tab(s), Refills(s) 0, Pharmacy: [facility], 153, cm, 07/15/24 9:24:00 EST, Height/Length [...] History Col (more content not included)... Normal [facility] Comment on above: Result Comment: Elec tronically Signed By: Le Montano\.br\Date and Time Signed: 01/02/25 11:11 EDT Lipid Panelon 01-02-2025 Cholesterol [Mass/Vol] 214 mg/dL High 120-200 [facility] Comment on above: Performed By: #### 2 [id number] #### [facility] [address] [place] [address] Cholesterol in HDL [Mass/Vol] 50 mg/dL Invalid Interpretation Code [facility] Comment on above: Result Comment: '>= 60 LOW RISK' '<= 40 HIGH RISK' Performed By: #### 2 [id number] #### [facility] [address] [place] [address] Cholesterol in LDL [Mass/Vol] 148 mg/dL High <=129 [facility] Comment on above: Performed By: #### 2 [id number] #### [facility] [address] [place] [address] Cholesterol in VLDL [Mass/Vol] 22 mg/dL Normal 7-40 [facility] Comment on above: Performed By: #### 2 [id number] #### [facility] [address] [place] [address] Triglyceride [Mass/Vol] 108 mg/dL Normal <=149 [facility] Comment on above: Performed By: #### 2 [id number] #### [facility] [address] [place] [address] TSHon 01-02-2025 TSH Qn 0.98 m[IU]/L Normal 0.34-5.60 [facility] Comment on above: Performed By: #### 2 170706 #### [facility] [address] [place] [address] eGFRon 01-02-2025 eGFR 78 mL/min/1.73 m2 Normal >=59 [facility] Comment on above: Performed By: #### 1 [id number] #### [facility] [address] [place] [address] ECG 12 Leadon 09-23-2024 Sinus Rhythm Low voltage in precordial leads. -Nonspecific T-abnormality. [facility] ECG 12-LEADon 09-23-2024 ECG 12-LEAD Sinus Rhythm Low voltage in precordial leads. -Nonspecific T-abnormality. Normal [facility] Family Medicine Office/Clini c Noteon 08-30-2024 Family [...] cough and congestion, 200 mL, Refill(s) 0, [facility], 153, cm, 08/30/24 11:22:00 EDT, Height/Length Dosing, 118.4, kg, 08/30/24 11:22:00 EDT, Weight Dosing doxycycline, 100 mg = 1 cap(s), Oral, q12hr, X 7 day(s), # 14 cap(s), Refills(s) 0, Pharmacy: [facility], 153, cm, 08/30/24 11:22:00 EDT, Height/Length [...] Screening Negative 3352F Influenza Type A&B POC 26179 Most recent diastolic blood pressure <80 mm Hg 3078F Patient screen for fall risk: no falls in last year or 1 fall with no injury in last year 1101F Systolic BP <130 mm Hg (Most Recent) 3074F 3. Congestion of nasal sinus (R09.81: Nasal congestion) bromfed sent Ordered: brompheniramine/dextrometh orphan/PSE, 5 mL, Oral, QID for cough and congestion, 200 mL, Refill(s) 0, [facility], 153, cm, 08/30/24 11:22:00 EDT, Height/Length Dosing, 118.4, kg, 08/30/24 11:22:00 EDT, Weight Dosing doxycycline, 100 mg = 1 cap(s), Oral, q12hr, X 7 day(s), # 14 cap(s), Refills(s) 0, Pharmacy: [facility], 153, cm, 08/30/24 11:22:00 EDT, Height/Length [...] cough and congestion, 200 mL, Refill(s) 0, [facility], 153, cm, 08/30/24 11:22:00 EDT, Height/Length Dosing, 118.4, kg, 08/30/24 11:22:00 EDT, Weight Dosing doxycycline, 100 mg = 1 cap(s), Oral, q12hr, X 7 day(s), # 14 cap(s), Refills(s) 0, Pharmacy: [facility], 153, cm, 08/30/24 11:22:00 EDT, Height/Length [...] 1036F Depressi (more content not included)... Normal [facility] Comment on above: Result Comment: [...] 8:20 AM EDT With: Le Montano Where: [address] [address]- Medications What How Much When Why Instructions New alprazolam (alprazolam 0.25 mg Tab) 0.25 Milligram By Mouth Every day prn Dx F41.9 Pickup at [facility] Unchanged apixaban (Eliquis 5 mg oral [...] Milligram By Mouth Every day Pharmacy Information [facility]: [address] [place], [place] [id number] [phone] Allergies Zithromax (Unknown) Problems Ongoing - Any [...] spasm, # 30 tab(s), Refills(s) 0, Pharmacy: [facility], 153, cm, 07/15/24 9:24:00 EST, Height/Length Dosing, 117.8, kg, 07/15/24 9:24:00 EST, Weight Dosing methylPREDNISolone, = 1 packet(s), Oral, As Directed, as directed on package labeling, X 6 day(s), # 21 tab(s), Refills(s) 0, Pharmacy: [facility], 153, cm, 07/15/24 9:24:00 EST, Height/Length Dosing, 117.8, kg, 07/15/24 9:24:00 EST, Weight Dosing 2. Adult BMI 50.0-59.9 kg/sq m (Z68.43: Body mass index [BMI] 50.0-59.9, adult) BMI education Ordered: cyclobenzaprine, 10 mg = 1 tab(s), Oral, TID, PRN for spasm, # 30 tab(s), Refills(s) 0, Pharmacy: [facility], 153, cm, 07/15/24 9:24:00 EST, Height/Length Dosing, 117.8, kg, 07/15/24 9:24:00 EST, Weight Dosing methylPREDNISolone, = 1 packet(s), Oral, As Directed, as directed on package labeling, X 6 day(s), # 21 tab(s), Refills(s) 0, Pharmacy: [facility], 153, cm, 07/15/24 9:24:00 EST, Height/Length Dosing, 117.8, kg, 07/15/24 9:24:00 EST, Weight Dosing 3. Non-smoker (Z78.9: Other specified health status) continue not smoking Ordered: cyclobenzaprine, 10 mg = 1 tab(s), Oral, TID, PRN for spasm, # 30 tab(s), Refills(s) 0, Pharmacy: [facility], 153, cm, 07/15/24 9:24:00 EST, Height/Length Dosing, 117.8, kg, 07/15/24 9:24:00 EST, Weight Dosing methylPREDNISolone, = 1 packet(s), Oral, As Directed, as directed on package labeling, X 6 day(s), # 21 tab(s), Refills(s) 0, Pharmacy: [facility], 153, cm, 07/15/24 9:24:00 EST, Height/Length Dosing, 117.8, kg, 07/15/24 9:24:00 EST, Weight Dosing Orders: alprazolam, 0.25 mg, Oral, Daily, prn Dx F41.9, # 30 tab(s), Refills(s) 0, Pharmacy: [facility], 153, cm, 07/15/24 9:24:00 EST, Height/Length Dosing, 117.8, kg, 07/15/24 9:24:00 EST, Weight Dosing alprazolam, 0.25 mg, Oral, Daily, prn Dx F41.9, # 30 tab(s), Refills(s) 0, Pharmacy: [id number], 153, cm, 09/02/23 8:30:00 EDT, Height/Length Dosing, [...] mg Tab (more content not included)... Normal [facility] Comment on above: Result Comment: [...] 8:20 AM EDT With: Le Montano Where: [place] [phone]- Medications What How Much When Instructions Unchanged [...] for choosing us for your care. Normal [facility] Family Medicine Office/Clini c Noteon 07-11-2024 Family Medicine Office/Clinic Note Family Medicine Office/Clinic Note [facility] Staff Keely is a 68 year old female presenting for 3 month follow up Weight management: Semaglutide Sleeping well:Yes, 6-8 hours Chest pain:No Tremors:No Headaches:No Heart fluttering:No Blurred Vision:No Beginning weight: 259.16 Previous weight: 270 Today's weight: 263 Questions/Concerns: doing well no concerns ER followup: Hospital: [facility] Visit date: 07/05/24 Symptoms the patient presented with: Dizzy, lightheaded, jaw pain, heart palpations Symptom onset/injury onset: 07/05/24 Current concerns: [place] [facility] [place] started Metoprolol and Eliquis and d/c bisoprolol/HCTZ was discharged 07/07/24 Pt states she is feeling better just really tired. Has follow up with Cardiology 08/08/24 [facility] [place] Onset: 2 weeks ago sinus pressure, nasal drainage and post nasal drip, sinus congestion, ears popping, denies fevers History of Present Illness pt presents today for 3 month follow [facility] Review of Systems PHQ Score Initial Depression [...] pt recently had non-STEMI was taken to [facility] and had heart cath. will follow up with cardiology in July. denies chest pain or shortness of breath. pt is hoping that since she has another chronic condition insurance binh cover wegovy or any injectable for weight management. currently paying for compound pharmacy semaglutide. if insurance wont cover it, will sned order to [facility] for 1.8mg dose. Ordered: quetiapine, 25 mg = 1 tab(s), Oral, Bedtime, # 30 tab(s), Refills(s) 1, Pharmacy: [facility], 153, cm, 07/11/24 8:35:00 EST, Height/Length Dosing, 119.3, kg, 07/11/24 8:35:00 EST, Weight Dosing semaglutide, 0.25 mg, SubCutaneous, qWeek, # 4 EA, Refills(s) 0, Pharmacy: [facility], 153, cm, 07/11/24 8:35:00 EST, Height/Length Dosing, 119.3, kg, 07/11/24 8:35:00 EST, Weight Dosing 2. HTN - Hypertension (I10: Essential (primary) hypertension) BP at goal today Ordered: quetiapine, 25 mg = 1 tab(s), Oral, Bedtime, # 30 tab(s), Refills(s) 1, Pharmacy: [facility], 153, cm, 07/11/24 8:35:00 EST, Height/Length Dosing, 119.3, kg, 07/11/24 8:35:00 EST, Weight Dosing semaglutide, 0.25 mg, SubCutaneous, qWeek, # 4 EA, Refills(s) 0, Pharmacy: [facility], 153, cm, 07/11/24 8:35:00 EST, Height/Length [...] adult) pt has been taking semaglutide through [facility]. she recently had Non stermi and would like for me to order medication through pharmacy. not sure if they will cover it since she has another risk factor after having a PR Ordered: quetiapine, 25 mg = 1 tab(s), Oral, Bedtime, # 30 tab(s), Refills(s) 1, Pharmacy: [facility], 153, cm, 07/11/24 8:35:00 EST, Height/Length Dosing, 119.3, kg, 07/11/24 8:35:00 EST, Weight Dosing semaglutide, 0.25 mg, SubCutaneous, qWeek, # 4 EA, Refills(s) 0, Pharmacy: [facility], 153, cm, 07/11/24 8:35:00 EST, Height/Length Dosing, 119.3, kg, 07/11/24 8:35:00 EST, Weight Dosing 6. Non-smoker (Z78.9: Other specified health status) continue not smoking Ordered: quetiapine, 25 mg = 1 tab(s), Oral, Bedtime, # 30 tab(s), Refills(s) 1, Pharmacy: [facility], 153, cm, 07/11/24 8:35:00 EST, Height/Length Dosing, 119.3, kg, 07/11/24 8:35:00 EST, Weight Dosing semaglutide, 0.25 mg, SubCutaneous, qWeek, # 4 EA, Refills(s) 0, Pharmacy: [facility], 153, cm, 07/11/24 8:35:00 EST, Height/Length Dosing, 119.3, kg, 07/11/24 8:35:00 EST, Weight Dosing Orders: bisoprolol-hydrochlorothia zide, 1 tab(s), Oral, Daily, 90 tab(s), Refill(s) 4, [facility], 153, cm, 09/02/23 8:30:00 (more content not included)... Normal [facility] Comment on above: Result Comment: Elec tronically Signed By: Cristiane HER, Le Odonnell\.br\Date and Time Signed: 07/11/24 10:07 EST B-Type Natriuretic Peptideon 07-07-2024 Natriuretic peptide B (Bld) [Mass/Vol] 110.0 pg/mL High 5-100 [facility] Comment on above: Result Comment: PERF ORMED BY: [address] [place] [address] PATHOLOGIST HAND HOSE CUTTER BEN MARISCAL M.D. Performed By: #### H S TROP, MG, CBC, BMP, LIPID #### [facility] [address] [place] [address] [facility] Basic Metabolic Panelon 06-19 Anion gap [Moles/Vol] 10.7 mmol/L Normal 6.0-15.0 [facility] Comment on above: Performed By: #### H S TROP, MG, CBC, BMP, LIPID #### [facility] [address] [place] [id number] [facility] Calcium [Mass/Vol] 9.0 mg/dL Normal 8.6-10.3 [facility] Comment on above: Performed By: #### H S TROP, MG, CBC, BMP, LIPID #### [address] Chloride [Moles/Vol] 105 mmol/L Normal 98-107 [facility] Comment on above: Performed By: #### H S TROP, MG, CBC, BMP, LIPID #### [address] CO2 [Moles/Vol] 24.9 mmol/L Normal 21.0-31.0 [facility] Comment on above: Performed By: #### H S TROP, MG, CBC, BMP, LIPID #### [address] Creatinine [Mass/Vol] 0.86 mg/dL Normal 0.60-1.20 [facility] Comment on above: Performed By: #### H S TROP, MG, CBC, BMP, LIPID #### [address] Creatinine Clr Calc Pharmacy 74.97 Normal [facility] Comment on above: Result Comment: PERF ORMED BY: [place] [address] PATHOLOGIST HAND HOSE CUTTER BEN MARISCAL M.D. Performed By: #### H S TROP, MG, CBC, BMP, LIPID #### [address] GFR/1.73 sq M.predicted MDRD (S/P/Bld) [Vol rate/Area] mL/min/{1.73_m2} Normal [facility] Comment on above: Performed By: #### H S TROP, MG, CBC, BMP, LIPID #### [address] Glucose [Mass/Vol] 116 mg/dL High 70-100 [facility] Comment on above: Result Comment: [facility] Glucose Reference Range is dependent on time and content of last meal. Glucose of more than 200 mg/dL in a nonstressed, ambulatory subject supports the diagnosis of Diabetes Mellitus. ADA recommended reference range Performed By: #### H S TROP, MG, CBC, BMP, LIPID #### [facility] [address] Potassium [Moles/Vol] 3.6 mmol/L Normal 3.5-5.1 [facility] Comment on above: Performed By: #### H S TROP, MG, CBC, BMP, LIPID #### [facility] [address] Sodium [Moles/Vol] 137 mmol/L Normal 136-145 [facility] Comment on above: Performed By: #### H S TROP, MG, CBC, BMP, LIPID #### [address] Urea nitrogen [Mass/Vol] 10 mg/dL Normal 7-25 [facility] Comment on above: Performed By: #### H S TROP, MG, CBC, BMP, LIPID #### [address] Basophils Auto (Bld) [#/Vol] Ordered By: Rigoberto Alfaro on 07-07-2024 Basophils (Bld) [#/Vol] Automated basophil count 0.0-0.2 [facility] Basophils/100 WBC Auto (Bld) Ordered By: Rigoberto Alfaro on 07-07-2024 Basophils/100 WBC (Bld) Automated basophil % . [facility] Calcium [Mass/volume] in Ser um or PlasmaOrdered By: Rigoberto Alfaro on 07-07-2024 Calcium [Mass/Vol] Calcium [Mass/volume ] in Serum or Plasma 8.6-10.3 [facility] Carbon dioxide, total [Moles /volume] in Serum or PlasmaOrdered By: Rigoberto Alfaro on 07-07-2024 CO2 [Moles/Vol] Carbon dioxide, tota l [Moles/volume] in Serum or Plasma 21.0-31.0 [facility] Chloride [Moles/volume] in S edouard or PlasmaOrdered By: Rigoberto Alfaro on 07-07-2024 Chloride [Moles/Vol] Chloride [Moles/vol ume] in Serum or Plasma 98-107 [facility] Complete Blood Count Auto Di ffon 07-07-2024 Basophils (Bld) [#/Vol] 0.0 10*3/uL Normal 0.0-0.2 [facility] Comment on above: Result Comment: PERF ORMED BY: [place] [address] PATHOLOGIST HAND HOSE CUTTER BEN MARISCAL M.D. Performed By: #### H S TROP, MG, CBC, BMP, LIPID #### [address] Basophils/100 WBC (Bld) 0.8 % Normal . [facility] Comment on above: Performed By: #### H S TROP, MG, CBC, BMP, LIPID #### [address] Eosinophils (Bld) [#/Vol] 0.2 10*3/uL Normal 0.0-0.45 [facility] Comment on above: Performed By: #### H S TROP, MG, CBC, BMP, LIPID #### [address] Eosinophils/100 WBC (Bld) 4.8 % Normal . [facility] Comment on above: Performed By: #### H S TROP, MG, CBC, BMP, LIPID #### [address] Erythrocyte distribution width (RBC) [Ratio] 14.0 % Normal 11.9-15.3 [facility] Comment on above: Performed By: #### H S TROP, MG, CBC, BMP, LIPID #### [address] Hematocrit (Bld) [Volume fraction] 38.7 % Normal 34.0-46.4 [facility] Comment on above: Performed By: #### H S TROP, MG, CBC, BMP, LIPID #### [address] Hemoglobin (Bld) [Mass/Vol] 13.2 g/dL Normal 11.8-15.4 [facility] Comment on above: Performed By: #### H S TROP, MG, CBC, BMP, LIPID #### [address] Lymphocytes (Bld) [#/Vol] 1.5 10*3/uL Normal 1.00-4.8 [facility] Comment on above: Performed By: #### H S TROP, MG, CBC, BMP, LIPID #### [address] Lymphocytes/100 WBC (Bld) 36.1 % Normal . [facility] Comment on above: Performed By: #### H S TROP, MG, CBC, BMP, LIPID #### [address] MCH (RBC) [Entitic mass] 28.5 pg Normal 24.7-34.3 [facility] Comment on above: Performed By: #### H S TROP, MG, CBC, BMP, LIPID #### [address] MCV (RBC) [Entitic vol] 83.6 fL Normal 80-100 [facility] Comment on above: Performed By: #### H S TROP, MG, CBC, BMP, LIPID #### [address] Mean Corpuscular HGB Conc 34.1 g/dL Normal 32.0-35.0 [facility] Comment on above: Performed By: #### H S TROP, MG, CBC, BMP, LIPID #### [address] Monocytes (Bld) [#/Vol] 0.4 10*3/uL Normal 0.0-0.8 [facility] Comment on above: Performed By: #### H S TROP, MG, CBC, BMP, LIPID #### [address] Monocytes/100 WBC (Bld) 16.84 % Normal 0.00-20.00 [facility] Comment on above: Performed By: #### H S TROP, MG, CBC, BMP, LIPID #### [address] Monocytes/100 WBC (Bld) 10.4 % Normal . [facility] Comment on above: Performed By: #### H S TROP, MG, CBC, BMP, LIPID #### [address] Neutrophils (Bld) [#/Vol] 2.0 10*3/uL Normal 1.8-7.7 [facility] Comment on above: Performed By: #### H S TROP, MG, CBC, BMP, LIPID #### [address] Neutrophils/100 WBC (Bld) 47.9 % Normal . [facility] Comment on above: Performed By: #### H S TROP, MG, CBC, BMP, LIPID #### [address] NRBC% 0.3 /100{WBC} Normal 0-0.5 [facility] Comment on above: Performed By: #### H S TROP, MG, CBC, BMP, LIPID #### [address] Platelet mean volume (Bld) [Entitic vol] 7.1 fL Normal 6.3-10.7 [facility] Comment on above: Performed By: #### H S TROP, MG, CBC, BMP, LIPID #### [address] Platelets (Bld) [#/Vol] 161 10*3/uL Normal 150-450 [facility] Comment on above: Performed By: #### H S TROP, MG, CBC, BMP, LIPID #### [address] RBC (Bld) [#/Vol] 4.63 10*6/uL Normal 3.60-5.00 [facility] Comment on above: Performed By: #### H S TROP, MG, CBC, BMP, LIPID #### [facility] [address] WBC (Bld) [#/Vol] 4.1 10*3/uL Normal 3.8-11.6 [facility] Comment on above: Performed By: #### H S TROP, MG, CBC, BMP, LIPID #### [facility] [address] [place] [id number] [place] Creatine Kinaseon 07-07-2024 CK [Catalytic activity/Vol] 299 U/L High 30-223 [facility] Comment on above: Performed By: #### H S TROP, MG, CBC, BMP, LIPID #### [facility] [address] [place] [address] Creatine kinase [Enzymatic a ctivity/volume] in Serum or PlasmaOrdered By: Rigoberto Alfaro on 07-07-2024 CK [Catalytic activity/Vol] Creatine kinase [Enzymatic activity/volume] in Serum or Plasma High 30-223 [facility] Creatinine [Mass/volume] in Serum or PlasmaOrdered By: Rigoberto Alfaro on 07-07-2024 Creatinine [Mass/Vol] Creatinine [Mass/v olume] in Serum or Plasma 0.60-1.20 [facility] ECG 12 lead ECGon 07-07-2024 ECG 12 lead ECG [facility] [place] [address] Electrocardiograph Report Signed Patient: Keely Chopra MR#: [id number] : 1955 Acct:[id number] Age/Sex: 68 / F ADM Date: 07/07/24 Loc: ER Room: Type: [facility] ER Attending Dr: Ordering Provider: Rigoberto Alfaro [...] sinus rhythm Confirmed by Rigoberto Alfaro DO ([id number]) on 07/07/2024 3:58:58 PM Referred By: Electronically Signed By: Rigoberto Alfaro DO Transcribed By: MUS Signed By Rigoberto Alfaro DO 1559 Normal [facility] Eosinophils Auto (Bld) [#/Vo l]Ordered By: Rigoberto Alfaro on 07-07-2024 Eosinophils (Bld) [#/Vol] Automated eosinophil count 0.0-0.45 [facility] Eosinophils/100 WBC Auto (Bl d)Ordered By: Rigoberto Alfaro on 07-07-2024 Eosinophils/100 WBC (Bld) Automated eosinophil % . [facility] Erythrocyte distribution wid th Auto (RBC) [Ratio]Ordered By: Rigoberto Alfaro on 07-07-2024 Erythrocyte distribution width (RBC) [Ratio] Erythrocyte distribution width [Ratio] by Automated count 11.9-15.3 [facility] Glucose [Mass/volume] in Ser um or PlasmaOrdered By: Rigoberto Alfaro on 07-07-2024 Glucose [Mass/Vol] Glucose [Mass/volume ] in Serum or Plasma High 70-100 [facility] Comment on above: ADA recommended refe rence rangeRandom Glucose Reference Range is dependent on time and content of last meal. Glucose of more than 200 mg/dL in a nonstressed, ambulatory subject supports the diagnosis of Diabetes Mellitus. Hematocrit Auto (Bld) [Volum e fraction]Ordered By: Rigoberto Alfaro on 07-07-2024 Hematocrit (Bld) [Volume fraction] Hematocrit [Volume Fraction] of Blood by Automated count 34.0-46.4 [facility] Hemoglobin [Mass/volume] in BloodOrdered By: Rigoberto Alfaro on 07-07-2024 Hemoglobin (Bld) [Mass/Vol] Hemoglobin [Mass/volume] in Blood 11.8-15.4 [facility] INR in Platelet poor plasma by Coagulation assayOrdered By: Rigoberto Alfaro on 07-07-2024 INR Coag (PPP) [Relative time] INR in Platelet poor plasma by Coagulation assay [facility] Comment on above: INR Therapeutic Rang [...] erythrocytes in Blood by Automated coun 3.8-11.6 [facility] Lymphocytes Auto (Bld) [#/Vo l]Ordered By: Rigoberto Alfaro on 07-07-2024 Lymphocytes (Bld) [#/Vol] Lymphocytes [#/volume] in Blood by Automated count 1.00-4.8 [facility] Lymphocytes/100 WBC Auto (Bl d)Ordered By: Rigoberto Alfaro on 07-07-2024 Lymphocytes/100 WBC (Bld) Lymphocytes/100 leukocytes in Blood by Automated count . [facility] MCH Auto (RBC) [Entitic mass ]Ordered By: Rigoberto Alfaro on 07-07-2024 MCH (RBC) [Entitic mass] MCH [Entitic mass] by Automated count 24.7-34.3 [facility] MCHC Auto (RBC) [Mass/Vol]Or dered By: Rigoberto Alfaro on 07-07-2024 MCHC (RBC) [Mass/Vol] MCHC [Mass/volume] by Automated count 32.0-35.0 [facility] MCV Auto (RBC) [Entitic vol] Ordered By: Rigoberto Alfaro on 07-07-2024 MCV (RBC) [Entitic vol] MCV [Entitic vol ume] by Automated count 80-100 [facility] Monocyte distribution width [Entitic volume] in Blood by AutomatedOrdered By: Rigoberto Alfaro on 07-07-2024 Monocyte distribution width Auto (Bld) [Entitic vol] Monocyte distribution width [Entitic volume] in Blood by Automated 0.00-20.00 [facility] Monocytes Auto (Bld) [#/Vol] Ordered By: Rigoberto Alfaro on 07-07-2024 Monocytes (Bld) [#/Vol] Automated blood monocyte count 0.0-0.8 [facility] Monocytes/100 WBC Auto (Bld) Ordered By: Rigoberto Alfaro on 07-07-2024 Monocytes/100 WBC (Bld) Automated monocyte % . [facility] Natriuretic peptide B [Mass/ Vol]Ordered By: Rigoberto Alfaro on 07-07-2024 Natriuretic peptide B (Bld) [Mass/Vol] BNP ser/plas High 5-100 [facility] Neutrophils Auto (Bld) [#/Vo l]Ordered By: Rigoberto Alfaro on 07-07-2024 Neutrophils (Bld) [#/Vol] Neutrophils [#/volume] in Blood by Automated count 1.8-7.7 [facility] Neutrophils/100 WBC Auto (Bl d)Ordered By: Rigoberto Alfaro on 07-07-2024 Neutrophils/100 WBC (Bld) Automated neutrophil % . [facility] No Panel InformationOrdered By: Rigoberto Alfaro on 07-07-2024 Estimated GFR (CKD-EPI) > 60.0 mL/Min [facility] Creatinine Clearance (Chem 74.97 [facility] Nucleated erythrocytes [Pres ence] in Blood by Automated countOrdered By: Rigoberto Alfaro on 07-07-2024 Nucleated RBC Auto Ql (Bld) Nucleated erythrocytes [Presence] in Blood by Automated count 0-0.5 [facility] Platelet mean volume Auto (B ld) [Entitic vol]Ordered By: Rigoberto Alfaro on 07-07-2024 Platelet mean volume (Bld) [Entitic vol] Platelet mean volume [Entitic volume] in Blood by Automated count 6.3-10.7 [facility] Platelets Auto (Bld) [#/Vol] Ordered By: Rigoberto Alfaro on 07-07-2024 Platelets (Bld) [#/Vol] Platelets [#/vol ume] in Blood by Automated count 150-450 [facility] Potassium [Moles/volume] in Serum or PlasmaOrdered By: Rigoberto Alfaro on 07-07-2024 Potassium [Moles/Vol] Potassium [Moles/v olume] in Serum or Plasma 3.5-5.1 [facility] Prothrombin Time INRon 07-07 INR Coag (PPP) [Relative time] 1.0 {INR} Normal [facility] Comment on above: Result [...] heart valves: 3 - 4.5 PERFORMED BY: [place] [address] PATHOLOGIST HAND HOSE CUTTER BEN MARISCAL M.D. Performed By: #### H S TROP, MG, CBC, BMP, LIPID #### [address] PT Coag (PPP) [Time] 11.0 s Normal 9.0-12.9 [facility] Comment on above: Result Comment: A he matocrit value greater than 55% may lead to inaccurate results in coagulation testing. Patients having hematocrit values >55% require a special collection tube for coagulation studies. Please contact the laboratory at [phone] for redraw instructions. Performed By: #### H S TROP, MG, CBC, BMP, LIPID #### [facility] [address] [place] [id number] [facility] Prothrombin time (PT)Ordered By: Rigoberto Alfaro on 07-07-2024 PT Coag (PPP) [Time] Prothrombin time (PT) 9.0- 12.9 [facility] Comment on above: A hematocrit value g reater than 55% may lead to inaccurate results in coagulation testing. Patients having hematocrit values >55% require a special collection tube for coagulation studies. Please contact the laboratory at [phone] for redraw instructions. RBC Auto (Bld) [#/Vol]Ordere d By: Rigoberto Alfaro on 07-07-2024 RBC (Bld) [#/Vol] Erythrocytes [#/volu me] in Blood by Automated count 3.60-5.00 [facility] Serum or plasma anion gap de terminationOrdered By: Rigoberto Alfaro on 07-07-2024 Anion gap [Moles/Vol] Serum or plasma an ion gap determination 6.0-15.0 [facility] Sodium [Moles/volume] in Ser um or PlasmaOrdered By: Rigoberto Alfaro on 07-07-2024 Sodium [Moles/Vol] Sodium [Moles/volume ] in Serum or Plasma 136-145 [facility] Troponin I High Sensitivityo n 07-07-2024 Troponin I High Sensitivity 146 Off scale high 0-15 [facility] Comment on above: Result Comment: Crit ical Result : Called to and read back by: KEM DUVAL at: 07/07/2024 10:24:21 by:JOSSY The Troponin units of report have been changed to meet the Chest Pain Accreditation requirement, element EC5.M1l2. Troponin units are changed from pg/ml to ng/L. Also, the decimal is removed and results are in whole numbers. PERFORMED BY: [place] [address] PATHOLOGIST HAND HOSE CUTTER BEN MARISCAL M.D. Performed By: #### H S TROP, MG, CBC, BMP, LIPID #### [facility] [address] [place] [address] Troponin I High Sensitivity 158 Off scale high 0-15 [facility] Comment on above: Result Comment: Crit ical Result : Called to and read back by: KEM DUVAL at: 07/07/2024 08:00:55 by:JOSSY The Troponin units of report have been changed to meet the Chest Pain Accreditation requirement, element EC5.M1l2. Troponin units are changed from pg/ml to ng/L. Also, the decimal is removed and results are in whole numbers. PERFORMED BY: [place] [address] PATHOLOGIST HAND HOSE CUTTER BEN MARISCAL M.D. Performed By: #### H S TROP, MG, CBC, BMP, LIPID #### [facility] [address] [place], [place] [id number] [facility] Troponin I.cardiac [Mass/vol ume] in Serum or Plasma by Detection limit <= 0.01 ng/Ordered By: Rigoberto Alfaro on 07-07-2024 Troponin I.cardiac DL <= 0.01 ng/mL [Mass/Vol] Troponin I.cardiac [Mass/volume] in Serum or Plasma by Detection limit <= 0.01 ng/ Critically high 0-15 [facility] Comment on above: Critical Result : [...] Urea nitrogen [Mass/volume] in Serum or Plasma 7 [facility] WBC Auto (Bld) [#/Vol]Ordere d By: Rigoberto Alafro on 07-07-2024 WBC (Bld) [#/Vol] Leukocytes [#/volume ] in Blood by Automated count 3.8-11.6 [facility] X-ray reportOrdered By: Rigoberto Lane on 07-07-2024 Study report [facility] [place] [address] XRay Report Signed Patient: Keely Chopra MR#: [id number] : 1955 Acct:[id number] Age/Sex: 68 / F ADM Date: 5 Loc: ER Room: Type: [facility] ER Attending Dr: Copies to: Rigoberto Alfaro [...] 8:15 AM Dictation Location: RADIO-PC-23 Transcribed By: [facility] 07/07/2415 Dictated By: Shukri Lane DO 07/07/24814 Signed By: 07/07/[address] [facility] XR chest 2V*on 07-07-2024 XR chest 2V* [facility] [place] Main [place] [address] [place] [address] XRay Report Signed Patient: Keely Chopra MR#: [id number] : 1955 Acct:[id number] Age/Sex: 68 / F ADM Date: 07/07/24 Loc: ER Room: Type: [facility] ER Attending Dr: Copies to: Rigoberto Alfaro [...] Shukri Lane M.D.07/07/2024 8:15 AM Dictation Location: RADIO--23 Transcribed By: [facility] 07/07/24 0815 Dictated By: Shukri Lane DO 07/07/24814 Signed By: 07/07/24814 Normal [facility] Anti-Xa UF Heparinon 025 Anti-Xa UF Heparin 0.19 [IU]/mL Low 0.30-0.70 [facility] Comment on above: Result Comment: Use the aPTT protocol when triglycerides are > 800 mg/dL, total bilirubin is > 20 mg/dL and/or patient has received a DOAC, Fondaparinux or LMWH within 72 hours AND baseline anti-Xa level is > 0.7 units/mL PERFORMED BY: [place] [address] PATHOLOGIST HAND HOSE CUTTER BEN MARISCAL M.D. Performed By: #### H S TROP, MG, CBC, BMP, LIPID #### [address] Anti-Xa UF Heparin 0.31 [IU]/mL Normal 0.30-0.70 [facility] Comment on above: Result Comment: Use the aPTT protocol when triglycerides are > 800 mg/dL, total bilirubin is > 20 mg/dL and/or patient has received a DOAC, Fondaparinux or LMWH within 72 hours AND baseline anti-Xa level is > 0.7 units/mL PERFORMED BY: [place] [address] PATHOLOGIST HAND HOSE CUTTER BEN MARISCAL M.D. Performed By: #### H S TROP, MG, CBC, BMP, LIPID #### [address] Basic Metabolic Panelon 06-18 Anion gap [Moles/Vol] 10.5 mmol/L Normal 6.0-15.0 [facility] Comment on above: Performed By: #### H S TROP, MG, CBC, BMP, LIPID #### [address] Calcium [Mass/Vol] 9.3 mg/dL Normal 8.6-10.3 [facility] Comment on above: Performed By: #### H S TROP, MG, CBC, BMP, LIPID #### [address] Chloride [Moles/Vol] 103 mmol/L Normal 98-107 [facility] Comment on above: Performed By: #### H S TROP, MG, CBC, BMP, LIPID #### [address] CO2 [Moles/Vol] 26.5 mmol/L Normal 21.0-31.0 [facility] Comment on above: Performed By: #### H S TROP, MG, CBC, BMP, LIPID #### [facility] [address] Creatinine [Mass/Vol] 0.81 mg/dL Normal 0.60-1.20 [facility] Comment on above: Performed By: #### H S TROP, MG, CBC, BMP, LIPID #### [facility] [address] [place] [address] [place] Creatinine Clr Calc Pharmacy 79.48 Normal [facility] Comment on above: Performed By: #### H S TROP, MG, CBC, BMP, LIPID #### [place] [address] [place] GFR/1.73 sq M.predicted MDRD (S/P/Bld) [Vol rate/Area] mL/min/{1.73_m2} Normal [facility] Comment on above: Performed By: #### H S TROP, MG, CBC, BMP, LIPID #### [address] Glucose [Mass/Vol] 98 mg/dL Normal 70-100 [facility] Comment on above: Result Comment: [place] Glucose Reference Range is dependent on time and content of last meal. Glucose of more than 200 mg/dL in a nonstressed, ambulatory subject supports the diagnosis of Diabetes Mellitus. ADA recommended reference range Performed By: #### H S TROP, MG, CBC, BMP, LIPID #### [place] [address] [place] Potassium [Moles/Vol] 4.0 mmol/L Normal 3.5-5.1 [facility] Comment on above: Performed By: #### H S TROP, MG, CBC, BMP, LIPID #### [facility] [address] [place] [address] [place] Sodium [Moles/Vol] 136 mmol/L Normal 136-145 [facility] Comment on above: Performed By: #### H S TROP, MG, CBC, BMP, LIPID #### [facility] [address] Urea nitrogen [Mass/Vol] 10 mg/dL Normal 7-25 [facility] Comment on above: Performed By: #### H S TROP, MG, CBC, BMP, LIPID #### [facility] [address] [place] [id number] [facility] Basophils Auto (Bld) [#/Vol] Ordered By: Akua Ellsworth on 07-06-2024 Basophils (Bld) [#/Vol] Automated basophil count 0.0-0.2 [facility] Basophils/100 WBC Auto (Bld) Ordered By: Akua Ellsworth on 07-06-2024 Basophils/100 WBC (Bld) Automated basophil % . [facility] Calcium [Mass/volume] in Ser um or PlasmaOrdered By: Akua Ellsworth on 07-06-2024 Calcium [Mass/Vol] Calcium [Mass/volume ] in Serum or Plasma 8.6-10.3 [facility] Carbon dioxide, total [Moles /volume] in Serum or PlasmaOrdered By: Akua Ellsworth on 07-06-2024 CO2 [Moles/Vol] Carbon dioxide, tota l [Moles/volume] in Serum or Plasma 21.0-31.0 [facility] Chloride [Moles/volume] in S edouard or PlasmaOrdered By: Akua Ellsworth on 07-06-2024 Chloride [Moles/Vol] Chloride [Moles/vol ume] in Serum or Plasma 98-107 [facility] Cholesterol [Mass/volume] in Serum or PlasmaOrdered By: Akua Ellsworth on 07-06-2024 Cholesterol [Mass/Vol] Cholesterol [Mass /volume] in Serum or Plasma 140-200 [facility] Comment on above: Chol less than 200 m g/dl low riskChol 201-239 mg/dl borderline riskChol 240 mg/dl and greater high risk Cholesterol in HDL [Mass/vol ume] in Serum or PlasmaOrdered By: Akua Ellsworth on 07-06-2024 Cholesterol in HDL [Mass/Vol] Serum or plasma high density lipoprotein (HDL) cholesterol measurement 23-92 [facility] Comment on above: HDL CHOL ATP-III CLA SSIFICATION Cardiovascular RiskHDL > or equal to 60 mg/dL LOWHDL < 40 mg/dL HIGH Cholesterol in LDL Calc [Mas s/Vol]Ordered By: Akua Ellsworth on 07-06-2024 Cholesterol in LDL [Mass/Vol] Cholesterol in LDL [Mass/volume] in Serum or Plasma by calculation High 0-100 [facility] Comment on above: LDL ATP III CLASSIFI CATIONLDL less than 100 mg/dL OptimalLDL 100-129 mg/dL Near or above optimalLDL 130-159 mg/dL Borderline highLDL 160-189 mg/dL HighLDL greater than 189 mg/dL Very high Cholesterol in VLDL Calc [Ma ss/Vol]Ordered By: Akua Ellsworth on 07-06-2024 Cholesterol in VLDL [Mass/Vol] Cholesterol in VLDL [Mass/volume] in Serum or Plasma by calculation [facility] Complete Blood Count Auto Di ffon 07-06-2024 Basophils (Bld) [#/Vol] 0.0 10*3/uL Normal 0.0-0.2 [facility] Comment on above: Result Comment: PERF ORMED BY: [place] [address] PATHOLOGIST HAND HOSE CUTTER BEN MARISCAL M.D. Performed By: #### H S TROP, MG, CBC, BMP, LIPID #### [address] Basophils/100 WBC (Bld) 0.5 % Normal . Juan thorpe [facility] Comment on above: Performed By: #### H S TROP, MG, CBC, BMP, LIPID #### [facility] [address] [place] [address] [place] Eosinophils (Bld) [#/Vol] 0.1 10*3/uL Normal 0.0-0.45 [facility] Comment on above: Performed By: #### H S TROP, MG, CBC, BMP, LIPID #### [place] [address] [place] Eosinophils/100 WBC (Bld) 1.9 % Normal . [facility] Comment on above: Performed By: #### H S TROP, MG, CBC, BMP, LIPID #### [facility] [address] [place] [address] [place] Erythrocyte distribution width (RBC) [Ratio] 13.9 % Normal 11.9-15.3 [facility] Comment on above: Performed By: #### H S TROP, MG, CBC, BMP, LIPID #### [address] Hematocrit (Bld) [Volume fraction] 36.8 % Normal 34.0-46.4 [facility] Comment on above: Performed By: #### H S TROP, MG, CBC, BMP, LIPID #### [address] Hemoglobin (Bld) [Mass/Vol] 12.9 g/dL Normal 11.8-15.4 [facility] Comment on above: Performed By: #### H S TROP, MG, CBC, BMP, LIPID #### [address] Lymphocytes (Bld) [#/Vol] 1.9 10*3/uL Normal 1.00-4.8 [facility] Comment on above: Performed By: #### H S TROP, MG, CBC, BMP, LIPID #### [address] Lymphocytes/100 WBC (Bld) 30.6 % Normal . [facility] Comment on above: Performed By: #### H S TROP, MG, CBC, BMP, LIPID #### [address] MCH (RBC) [Entitic mass] 28.9 pg Normal 24.7-34.3 [facility] Comment on above: Performed By: #### H S TROP, MG, CBC, BMP, LIPID #### [address] MCV (RBC) [Entitic vol] 82.4 fL Normal 80-100 [facility] Comment on above: Performed By: #### H S TROP, MG, CBC, BMP, LIPID #### [address] Mean Corpuscular HGB Conc 35.0 g/dL Normal 32.0-35.0 [facility] Comment on above: Performed By: #### H S TROP, MG, CBC, BMP, LIPID #### [address] Monocytes (Bld) [#/Vol] 0.5 10*3/uL Normal 0.0-0.8 [facility] Comment on above: Performed By: #### H S TROP, MG, CBC, BMP, LIPID #### [address] Monocytes/100 WBC (Bld) 8.2 % Normal . [facility] Comment on above: Performed By: #### H S TROP, MG, CBC, BMP, LIPID #### [address] Neutrophils (Bld) [#/Vol] 3.6 10*3/uL Normal 1.8-7.7 [facility] Comment on above: Performed By: #### H S TROP, MG, CBC, BMP, LIPID #### [address] Neutrophils/100 WBC (Bld) 58.8 % Normal . [facility] Comment on above: Performed By: #### H S TROP, MG, CBC, BMP, LIPID #### [address] NRBC% 0.1 /100{WBC} Normal 0-0.5 [facility] Comment on above: Performed By: #### H S TROP, MG, CBC, BMP, LIPID #### [address] Platelet mean volume (Bld) [Entitic vol] 7.4 fL Normal 6.3-10.7 [facility] Comment on above: Performed By: #### H S TROP, MG, CBC, BMP, LIPID #### [address] Platelets (Bld) [#/Vol] 168 10*3/uL Normal 150-450 [facility] Comment on above: Performed By: #### H S TROP, MG, CBC, BMP, LIPID #### [facility] [address] RBC (Bld) [#/Vol] 4.47 10*6/uL Normal 3.60-5.00 [facility] Comment on above: Performed By: #### H S TROP, MG, CBC, BMP, LIPID #### [facility] [address] WBC (Bld) [#/Vol] 6.1 10*3/uL Normal 3.8-11.6 [facility] Comment on above: Performed By: #### H S TROP, MG, CBC, BMP, LIPID #### [facility] [address] Creatinine [Mass/volume] in Serum or PlasmaOrdered By: Akua Ellsworth on 07-06-2024 Creatinine [Mass/Vol] Creatinine [Mass/v olume] in Serum or Plasma 0.60-1.20 [facility] ECG 12 lead ECGon 07-06-2024 ECG 12 lead ECG [facility] Main [place] [address] [place] [address] Electrocardiograph Report Signed Patient: Keely Chopra MR#: [id number] : 1955 Acct:[id number] Age/Sex: 68 / F ADM Date: 07/05/24 Loc: Room: [address] [place] [address] Type: ADM IN Attending Dr: Christina Julien [...] in Inferior leads Confirmed by Angel Gutierrez ([id number]) on 07/06/2024 2:54:36 PM Referred By: Electronically Signed By: Angel Gutierrez Transcribed By: MUS Signed By Angel Gutierrez MD 07/06/24 1454 Normal [facility] echo transthoracicon [facility] echo transthoracic [facility] Main [place] [address] [place] [address] Echocardiogram Signed Patient: Keely Chopra MR#: [id number] : 1955 Acct:[id number] Age/Sex: 68 / F ADM Date: 07/05/24 Loc: Room: [address] [place] [address] Type: ADM IN Attending Dr: Christina Julien MD Ordering Provider: Mahendra Garcia MD Date of Service: 07/06/24 [facility] echo transthoracic: afib Copies to: MD Angel [...] Mass (HM): LAEF (HM): 63.0 % BSA (HM): 2.1 m2 178.0 grams 2.5 l/min/m2 __ LEYDI (): LAVmax (): LAVmin (): 29.0 ml Pat Height (HM): 37.0 ml/m2 78.0 ml 157.0 cm __ Pat Weight (): 119.6 kg QLAB Heart Model EDV ()_phl: 159.0 ml EF ()_phl: 50.0 % ED Current ()_phl: 60.0 % ESV ()_phl: 79.0 ml HR ()_phl: 66.0 BPMES Current ()_phl: 30.0 % LV Length ED ()_phl: 93.0 mmSV ()_phl: 80.0 ml ED Default (HM)_phl: 60.0 % LV Length ES (HM)_phl: 73.0 mm ES Default (HM)_phl: 30.0 % Transcribed By: FRANTZ Performed At: 07/06/24 0955 Signed By: Angel Gutierrez MD 07/06/24 1440 Normal [facility] Eosinophils Auto (Bld) [#/Vo l]Ordered By: Akua Ellsworth on 07-06-2024 Eosinophils (Bld) [#/Vol] Automated eosinophil count 0.0-0.45 [facility] Eosinophils/100 WBC Auto (Bl d)Ordered By: Akua Ellsworth on 07-06-2024 Eosinophils/100 WBC (Bld) Automated eosinophil % . [facility] Erythrocyte distribution wid th Auto (RBC) [Ratio]Ordered By: Akua Ellsworth on 07-06-2024 Erythrocyte distribution width (RBC) [Ratio] Erythrocyte distribution width [Ratio] by Automated count 11.9-15.3 [facility] Glucose [Mass/volume] in Ser um or PlasmaOrdered By: Akua Ellsworth on 07-06-2024 Glucose [Mass/Vol] Glucose [Mass/volume ] in Serum or Plasma 70-100 [facility] Comment on above: ADA recommended refe rence rangeRandom Glucose Reference Range is dependent on time and content of last meal. Glucose of more than 200 mg/dL in a nonstressed, ambulatory subject supports the diagnosis of Diabetes Mellitus. Hematocrit Auto (Bld) [Volum e fraction]Ordered By: Akua Ellsworth on 07-06-2024 Hematocrit (Bld) [Volume fraction] Hematocrit [Volume Fraction] of Blood by Automated count 34.0-46.4 [facility] Hemoglobin [Mass/volume] in BloodOrdered By: Akua Ellsworth on 07-06-2024 Hemoglobin (Bld) [Mass/Vol] Hemoglobin [Mass/volume] in Blood 11.8-15.4 [facility] Heparin anti-Xa unfractionat edOrdered By: Akua Ellsworth on 07-06-2024 Heparin unfractionated Chromogenic method Qn (PPP) Heparin anti-Xa unfractionated Low 0.30-0.70 [facility] Comment on above: Use the aPTT [...] erythrocytes in Blood by Automated coun 3.8-11.6 [facility] Lipid Panelon 07-06-2024 Cholesterol [Mass/Vol] 196 mg/dL Normal 140-200 [facility] Comment on above: Result Comment: Chol less than 200 mg/dl low risk Chol 201-239 mg/dl borderline risk Chol 240 mg/dl and greater high risk Performed By: #### H S TROP, MG, CBC, BMP, LIPID #### [facility] [address] Cholesterol in HDL [Mass/Vol] 42 mg/dL Normal 23-92 [facility] Comment on above: Result Comment: HDL CHOL ATP-III CLASSIFICATION Cardiovascular Risk HDL > or equal to 60 mg/dL LOW HDL < 40 mg/dL HIGH Performed By: #### H S TROP, MG, CBC, BMP, LIPID #### [facility] [address] Cholesterol.total/Awilda sterol in HDL [Mass ratio] 4.7 {ratio} Normal <5.0 [facility] Comment on above: Result Comment: PERF ORMED BY: [facility] [address] [place] [address] PATHOLOGIST HAND HOSE CUTTER BEN MARISCAL M.D. Performed By: #### H S TROP, MG, CBC, BMP, LIPID #### [facility] [address] LDL Cholesterol,Calculated 129 mg/dL High 0-100 [facility] Comment on above: Result Comment: LDL ATP III CLASSIFICATION LDL less than 100 mg/dL Optimal LDL 100-129 mg/dL Near or above optimal LDL 130-159 mg/dL Borderline high LDL 160-189 mg/dL High LDL greater than 189 mg/dL Very high Performed By: #### H S TROP, MG, CBC, BMP, LIPID #### [facility] [address] Triglyceride w/Reflex 126 mg/dL Normal 0-149 [facility] Comment on above: Result Comment: TRIG ATP III CLASSIFICATION TRIG less than 150 mg/dL Normal TRIG 150-199 mg/dL Borderline high TRIG 200-500 mg/dL High TRIG greater than 500 mg/dL Very high Standard traceable to the Center for Disease Conrtrol and Prevention (CDC) test method. Performed By: #### H S TROP, MG, CBC, BMP, LIPID #### [facility] [address] VLDL CHOLESTEROL 25 mg/dL Normal [facility] Comment on above: Performed By: #### H S TROP, MG, CBC, BMP, LIPID #### [facility] [address] Lymphocytes Auto (Bld) [#/Vo l]Ordered By: Akua Ellsworth on 07-06-2024 Lymphocytes (Bld) [#/Vol] Lymphocytes [#/volume] in Blood by Automated count 1.00-4.8 [facility] Lymphocytes/100 WBC Auto (Bl d)Ordered By: Akua Ellsworth on 07-06-2024 Lymphocytes/100 WBC (Bld) Lymphocytes/100 leukocytes in Blood by Automated count . [facility] MCH Auto (RBC) [Entitic mass ]Ordered By: Akua Ellsworth on 07-06-2024 MCH (RBC) [Entitic mass] MCH [Entitic mass] by Automated count 24.7-34.3 [facility] MCHC Auto (RBC) [Mass/Vol]Or dered By: Akua Ellsworth on 02-19-2025 MCHC (RBC) [Mass/Vol] MCHC [Mass/volume] by Automated count 32.0-35.0 [facility] MCV Auto (RBC) [Entitic vol] Ordered By: Akua Ellsworth on 07-06-2024 MCV (RBC) [Entitic vol] MCV [Entitic vol ume] by Automated count 80-100 [facility] Magnesiumon 07-06-2024 Magnesium [Mass/Vol] 1.9 mg/dL Normal 1.9-2.7 [facility] Comment on above: Performed By: #### H S TROP, MG, CBC, BMP, LIPID #### [address] Magnesium [Mass/volume] in S edouard or PlasmaOrdered By: Akua Ellsworth on 07-06-2024 Magnesium [Mass/Vol] Magnesium [Mass/vol ume] in Serum or Plasma 1.9-2.7 [facility] Monocytes Auto (Bld) [#/Vol] Ordered By: Akua Ellsworth on 07-06-2024 Monocytes (Bld) [#/Vol] Automated blood monocyte count 0.0-0.8 [facility] Monocytes/100 WBC Auto (Bld) Ordered By: Akua Ellsworth on 07-06-2024 Monocytes/100 WBC (Bld) Automated monocyte % . [facility] Neutrophils Auto (Bld) [#/Vo l]Ordered By: Akua Ellsworth on 07-06-2024 Neutrophils (Bld) [#/Vol] Neutrophils [#/volume] in Blood by Automated count 1.8-7.7 [facility] Neutrophils/100 WBC Auto (Bl d)Ordered By: Akua Ellsworth on 07-06-2024 Neutrophils/100 WBC (Bld) Automated neutrophil % . [facility] No Panel InformationOrdered By: Akua Ellsworth on 07-06-2024 Estimated GFR (CKD-EPI) > 60.0 mL/Min [facility] Creatinine Clearance (Chem 79.48 [facility] Nucleated erythrocytes [Pres ence] in Blood by Automated countOrdered By: Akua Ellsworth on 07-06-2024 Nucleated RBC Auto Ql (Bld) Nucleated erythrocytes [Presence] in Blood by Automated count 0-0.5 [facility] Platelet mean volume Auto (B ld) [Entitic vol]Ordered By: Akua Ellsworth on 07-06-2024 Platelet mean volume (Bld) [Entitic vol] Platelet mean volume [Entitic volume] in Blood by Automated count 6.3-10.7 [facility] Platelets Auto (Bld) [#/Vol] Ordered By: Akua Ellsworth on 07-06-2024 Platelets (Bld) [#/Vol] Platelets [#/vol ume] in Blood by Automated count 150-450 [facility] Potassium [Moles/volume] in Serum or PlasmaOrdered By: Akua Ellsworth on 07-06-2024 Potassium [Moles/Vol] Potassium [Moles/v olume] in Serum or Plasma 3.5-5.1 [facility] RBC Auto (Bld) [#/Vol]Ordere d By: Akua Ellsworth on 07-06-2024 RBC (Bld) [#/Vol] Erythrocytes [#/volu me] in Blood by Automated count 3.60-5.00 [facility] Serum or plasma anion gap de terminationOrdered By: Akua Ellsworth on 07-06-2024 Anion gap [Moles/Vol] Serum or plasma an ion gap determination 6.0-15.0 [facility] Serum or plasma total choles terol/high density lipoprotein (HDL) cholesterol mass ratOrdered By: Akua Ellsworth on 07-06-2024 Cholesterol.total/Awilda sterol in HDL [Mass ratio] Serum or plasma total cholesterol/high density lipoprotein (HDL) cholesterol mass rat <5.0 [facility] Sodium [Moles/volume] in Ser um or PlasmaOrdered By: Akua Ellsworth on 07-06-2024 Sodium [Moles/Vol] Sodium [Moles/volume ] in Serum or Plasma 136-145 [facility] Triglyceride [Mass/volume] i n Serum or PlasmaOrdered By: Akua Ellsworth on 07-06-2024 Triglyceride [Mass/Vol] Triglyceride [Ma ss/volume] in Serum or Plasma 0-149 [facility] Comment on above: TRIG ATP III CLASSIF ICATIONTRIG less than 150 mg/dL NormalTRIG 150-199 mg/dL Borderline highTRIG 200-500 mg/dL High TRIG greater than 500 mg/dL Very highStandard traceable to the Center for Disease Conrtrol and Prevention (CDC) test method. Troponin I High Sensitivityo n 07-06-2024 Troponin I High Sensitivity 308 Off scale high 0-15 [facility] Comment on above: Result Comment: Crit ical Result : Called to and read back by: SILVER GRACIA at: 07/06/2024 11:31:26 by:RG The Troponin units of report have been changed to meet the Chest Pain Accreditation requirement, element EC5.M1l2. Troponin units are changed from pg/ml to ng/L. Also, the decimal is removed and results are in whole numbers. PERFORMED BY: [place] [address] PATHOLOGIST HAND HOSE CUTTER BEN MARISCAL M.D. Performed By: #### H S TROP, MG, CBC, BMP, LIPID #### [address] [address] [facility] Troponin I High Sensitivity 382 Off scale high 0-15 [facility] Comment on above: Result Comment: Crit ical Result : Called to and read back by: AKUA MCINTOSH at: 07/06/2024 08:28:04 by:[id number] The Troponin units of report have been changed to meet the Chest Pain Accreditation requirement, element EC5.M1l2. Troponin units are changed from pg/ml to ng/L. Also, the decimal is removed and results are in whole numbers. PERFORMED BY: [place] [address] PATHOLOGIST HAND HOSE CUTTER BEN MARISCAL M.D. Performed By: #### H S TROP, MG, CBC, BMP, LIPID #### [facility] [address] [place] [address] [facility] Troponin I.cardiac [Mass/vol ume] in Serum or Plasma by Detection limit <= 0.01 ng/Ordered By: Emerald Baker on 07-06-2024 Troponin I.cardiac DL <= 0.01 ng/mL [Mass/Vol] Troponin I.cardiac [Mass/volume] in Serum or Plasma by Detection limit <= 0.01 ng/ Critically high 0-15 [facility] Comment on above: Critical Result : [...] nitrogen [Mass/volume] in Serum or Plasma 12-09 [facility] WBC Auto (Bld) [#/Vol]Ordere d By: Akua Ellsworth on 07-06-2024 WBC (Bld) [#/Vol] Leukocytes [#/volume ] in Blood by Automated count 3.8-11.6 [facility] Anti-Xa UF Heparinon 025 Anti-Xa UF Heparin 0.04 [IU]/mL Low 0.30-0.70 [facility] Comment on above: Result Comment: Use the aPTT protocol when triglycerides are > 800 mg/dL, total bilirubin is > 20 mg/dL and/or patient has received a DOAC, Fondaparinux or LMWH within 72 hours AND baseline anti-Xa level is > 0.7 units/mL PERFORMED BY: [place] [address] PATHOLOGIST HAND HOSE CUTTER BEN MARISCAL M.D. Performed By: #### H S TROP, MG, CBC, BMP, LIPID #### [address] ECG 12 lead ECGon 07-05-2024 ECG 12 lead ECG [facility] [place] [address] Electrocardiograph Report Signed Patient: Keely Chopra MR#: [id number] : 1955 Acct:[id number] Age/Sex: 68 / F ADM Date: 07/05/24 Loc: Room: [address] [place] [address] Type: ADM IN Attending Dr: Christina Julien [...] previous ECGs available Confirmed by Angel Gutierrez ([id number]) on 07/06/2024 2:54:30 PM Referred By: Electronically Signed By: Angel Gutierrez Transcribed By: MUS Signed By Angel Gutierrez MD 07/06/24 6720 Normal [facility] INR in Platelet poor plasma by Coagulation assayOrdered By: Akua Ellsworth on 07-05-2024 INR Coag (PPP) [Relative time] INR in Platelet poor plasma by Coagulation assay [facility] Comment on above: INR Therapeutic Rang [...] [Time] 33.7 s Normal 25.1-36.5 [facility] Comment on above: Result Comment: A he matocrit value greater than 55% may lead to inaccurate results in coagulation testing. Patients having hematocrit values >55% require a special collection tube for coagulation studies. Please contact the laboratory at [phone] for redraw instructions. Performed By: #### H S TROP, MG, CBC, BMP, LIPID #### [address] Prothrombin Time INRon 07-05 INR Coag (PPP) [Relative time] 1.0 {INR} Normal [facility] Comment on above: Result Comment: INR Therapeutic [...] S TROP, MG, CBC, BMP, LIPID #### [facility] [address] [place] [address] [facility] PT Coag (PPP) [Time] 11.0 s Normal 9.0-12.9 [facility] Comment on above: Result Comment: A he matocrit value greater than 55% may lead to inaccurate results in coagulation testing. Patients having hematocrit values >55% require a special collection tube for coagulation studies. Please contact the laboratory at [phone] for redraw instructions. Performed By: #### H S TROP, MG, CBC, BMP, LIPID #### [facility] [address] [place] [address] [facility] Prothrombin time (PT)Ordered By: Akua Ellsworth on 07-05-2024 PT Coag (PPP) [Time] Prothrombin time (PT) 9.0- 12.9 [facility] Comment on above: A hematocrit value g reater than 55% may lead to inaccurate results in coagulation testing. Patients having hematocrit values >55% require a special collection tube for coagulation studies. Please contact the laboratory at [phone] for redraw instructions. Troponin I High Sensitivityo n 07-05-2024 Troponin I High Sensitivity 422 Off scale high 0-15 [facility] Comment on above: Result Comment: Crit ical Result : Called to and read back by: NAHID CHANDRA at: 07/06/2024 01:10:46 by:IVON The Troponin units of report have been changed to meet the Chest Pain Accreditation requirement, element EC5.M1l2. Troponin units are changed from pg/ml to ng/L. Also, the decimal is removed and results are in whole numbers. PERFORMED BY: [address] [address] PATHOLOGIST HAND HOSE CUTTER BEN MARISCAL M.D. Performed By: #### H S TROP, MG, CBC, BMP, LIPID #### [facility] [address] [place] [address] [facility] aPTT in Platelet poor plasma by Coagulation assayOrdered By: Akua Ellsworth on 07-05-2024 aPTT Coag (PPP) [Time] Activated partial thromboplastin time (aPTT) in platelet poor plasma by coagulation a 25.1-36.5 [facility] Comment on above: A hematocrit value g reater than 55% may lead to inaccurate results in coagulation testing. Patients having hematocrit values >55% require a special collection tube for coagulation studies. Please contact the laboratory at [phone] for redraw instructions. Ambulatory Visit Summaryon 1 [...] 8:20 AM EST With: Le Montano Where: [place] [address]- Medications What How Much When Instructions Unchanged [...] [facility] c Noteon 04-11-2024 [...] for 7 day(s), 14 tab(s), Refill(s) 0, [facility] #72, 153, cm, 04/11/24 8:35:00 EST, Height/Length [...] virus vaccine, inactivated 02/25/2022 Recorded SARS-CoV-2 (COVID-19) [id number] 02/25/2022 Recorded SARSCoV2 mRNA(cwjxcmcpf-qrae-sbrziu ) vac 10/08/2021 Recorded influenza virus vaccine, [...] yes Amount of lidocaine used: 0.3 cc [facility]d [facility] Type of biopsy: carrington ential Informed [...] yes Amount of lidocaine used: 0.5 cc [facility] [employer] CBC AUTO DIFFon 05-12-2022 BASO # 0.0 103/ul Normal 0.0-0.1 [facility] Comment on above: Performed By: #### C BC #### [facility] [address] [address] [address] Nuha Marinelli Basophils/100 WBC (Bld) 0.5 % Normal 0.2-2.0 [facility] Comment on above: Performed By: #### C BC #### [facility] [address] [address] [address] Nuha Marinelli EO # 0.2 103/ul Normal 0.0-0.7 [facility] Comment on above: Performed By: #### C BC #### [facility] [address] [address] [address] Nuha Marinelli Eosinophils/100 WBC (Bld) 3.3 % Normal 0.9-7.0 [facility] Comment on above: Performed By: #### C BC #### [facility] [address] [place] [address] Dr. Nuha Marinelli Erythrocyte distribution width (RBC) [Ratio] 13.6 % Normal 11.0-15.0 [facility] Comment on above: Performed By: #### C BC #### [facility] [address] [place] [address] Dr. Nuha Marinelli Hematocrit (Bld) [Volume fraction] 41.0 % Normal 36.0-48.0 [facility] Comment on above: Performed By: #### C BC #### [facility] [address] [place] [address] Dr. Nuha Marinelli Hemoglobin (Bld) [Mass/Vol] 13.6 g/dL Normal 12.0-16.0 [facility] Comment on above: Performed By: #### C BC #### [facility] [address] [place] [address] Dr. Nuha Marinelli IG # 0.03 10e3/ul Normal 0.00-0.03 [facility] Comment on above: Performed By: #### C BC #### [facility] [address] [place] [address] Dr. Nuha Marinelli IG % 0.4 % Normal 0.0-0.5 [facility] Comment on above: Performed By: #### C BC #### [facility] [address] [place] [address] Dr. Nuha Marinelli LYMPH # 2.3 103/ul Normal 1.2-3.8 [facility] Comment on above: Performed By: #### C BC #### [facility] [address] [place] [address] Dr. Nuha Marinelli Lymphocytes/100 WBC (Bld) 30.7 % Normal 20.5-60.0 [facility] Comment on above: Performed By: #### C BC #### [facility] [address] [place] [address] Dr. Nuha Marinelli MANUAL DIFF REQ NO Normal [facility] Comment on above: Performed By: #### C BC #### [facility] [address] [place] [address] Dr. Nuha Marinelli MCH (RBC) [Entitic mass] 28.0 pg Normal 26.7-34.0 [facility] Comment on above: Performed By: #### C BC #### [facility] [address] [place] [address] Dr. Nuha Marinelli MCHC (RBC) [Mass/Vol] 33.2 g/dL Normal 29.9-35.2 [facility] Comment on above: Performed By: #### C BC #### [facility] [address] [place] [address] Dr. Nuha Marinelli MCV (RBC) [Entitic vol] 84.5 fL Normal 81.0-99.0 [facility] Comment on above: Performed By: #### C BC #### [facility] [address] [place] [address] Dr. Nuha Marinelli MONO # 0.5 103/ul Normal 0.3-0.8 [facility] Comment on above: Performed By: #### C BC #### [facility] [address] [place] [address] Dr. Nuha Marinelli Monocytes/100 WBC (Bld) 6.8 % Normal 1.7-12.0 [facility] Comment on above: Performed By: #### C BC #### [facility] [address] [address] [address] Nuha Marinelli NEUT # 4.3 103/ul Normal 1.4-6.5 [facility] Comment on above: Performed By: #### C BC #### [facility] [address] [address] [address] Nuha Marinelli Neutrophils/100 WBC (Bld) 58.3 % Normal 43.0-75.0 [facility] Comment on above: Performed By: #### C BC #### [facility] [address] [place] [address] Dr. Nuha Marinelli Platelet mean volume (Bld) [Entitic vol] 9.2 fL Critically low 9.5-13.5 [facility] Comment on above: Performed By: #### C BC #### [facility] [address] [place] [address] Dr. Nuha Marinelli PLT 209 103/ul Normal 150-450 [facility] Comment on above: Performed By: #### C BC #### [facility] [address] [place] [address] Dr. Nuha Marinelli RBC 4.85 106/ul Normal 4.20-5.40 [facility] Comment on above: Performed By: #### C BC #### [facility] [address] [place] [address] Dr. Nuha Marinelli WBC 7.4 103/ul Normal 4.0-11.0 [facility] Comment on above: Performed By: #### C BC #### [facility] [address] [place] [address] Dr. Nuha Marinelli LIPID PROFILEon 05-12-2022 CHOL-HDL RATIO NORM SEE BELOW Normal [facility] Comment on above: Result Comment: 3.3 - 4.4 LOW RISK 4.4 - 7.1 AVERAGE RISK 7.1 - 11.0 MODERATE RISK >11.0 HIGH RISK Performed By: #### B MP, LIPID #### [facility] [address] [place] [address] Dr. Nuha Marinelli Cholesterol [Mass/Vol] 183 mg/dL Normal <=200 [facility] Comment on above: Performed By: #### B MP, LIPID #### [facility] [address] [address] [address] Nuha Marinelli Cholesterol in HDL [Mass/Vol] 47 mg/dL Normal 40-60 [facility] Comment on above: Performed By: #### B MP, LIPID #### [facility] [address] [address] [address] Nuha Marinelli Cholesterol in LDL [Mass/Vol] 102.8 mg/dL Normal [facility] Comment on above: Performed By: #### B MP, LIPID #### [facility] [address] [place] [address] Dr. Nuha Marinelli Cholesterol.total/Awilda sterol in HDL [Mass ratio] 3.9 {ratio} Normal [facility] Comment on above: Performed By: #### B MP, LIPID #### [facility] [address] [place] [address] Dr. Nuha Marinelli HDL NORMAL > or = 60 mg/dl - LO W CARDIOVASCULAR RISK <40 mg/dl - HIGH CARDIOVASCULAR RISK Normal [facility] Comment on above: Performed By: #### B MP, LIPID #### [facility] [address] [place] [address] Dr. Nuha Marinelli LDL CALC NORMAL SEE BELOW Normal [facility] Comment on above: Result Comment: <100 mg/dl OPTIMAL 100 - 129 mg/dl NEAR OR ABOVE OPTIMAL 130 - 159 mg/dl BORDERLINE HIGH 160 - 189 mg/dl HIGH >190 mg/dl VERY HIGH Performed By: #### B MP, LIPID #### [facility] [address] [place] [address] Dr. Nuha Marinelli Triglyceride [Mass/Vol] 166 mg/dL Critically high <=150 [facility] Comment on above: Performed By: #### B MP, LIPID #### [facility] [address] [place] [address] Dr. Nuha Marinelli VLDL CALC 33.2 mg/dL Normal [facility] Comment on above: Performed By: #### B MP, LIPID #### [facility] [address] [place] [address] Dr. Nuha Marinelli MG MAMM SCREEN 3D CARSON CADon 05-12-2022 MG MAMM SCREEN 3D CARSON CAD Patient: KEELY CHOPRA Exam Date: 05/12/2022 : 1955 Gender:F Ordering : DR JOY LEAL . Admission #: [id number] Family : Order #: [id number] CLICK HERE TO VIEW EXAM RADIOLOGY REPORT [...] liver cancer at age 4. LOCATION: [facility] BREAST COMPOSITION: Heterogeneously dense,which may obscure [...] Rose MD on 05/13/2022 at 11:15 Normal [facility] PROF CHEM 8 (BAS METB)on Anion gap [Moles/Vol] 12.1 mmol/L Normal [facility] Comment on above: Performed By: #### B MP, LIPID #### [facility] [address] [address] [address] Nuha Marinelli Calcium [Mass/Vol] 9.3 mg/dL Normal 8.5-10.1 [facility] Comment on above: Performed By: #### B MP, LIPID #### [facility] [address] [address] [address] Nuha Marinelli Chloride [Moles/Vol] 99 mmol/L Normal 98-107 [facility] Comment on above: Performed By: #### B MP, LIPID #### [facility] [address] [address] [address] Nuha Marinelli CO2 [Moles/Vol] 29.7 mmol/L Normal 21.0-32.0 [facility] Comment on above: Performed By: #### B MP, LIPID #### [facility] [address] [address] [address] Nuha Marinelli Creatinine [Mass/Vol] 0.77 mg/dL Normal 0.55-1.02 [facility] Comment on above: Performed By: #### B MP, LIPID #### [facility] [address] [place] [address] Dr. Nuha Marinelli EGFR-AF [place] >60 Normal >=60 [facility] Comment on above: Performed By: #### B MP, LIPID #### [facility] [address] [address] [address] Nuha Marinelli EGFR-NON AF [place]ER >60 Normal >=60 [facility] Comment on above: Performed By: #### B MP, LIPID #### [facility] [address] [address] [address] Nuha Marinelli Glucose [Mass/Vol] 112 mg/dL Critically high 74-106 [facility] Comment on above: Performed By: #### B MP, LIPID #### [facility] [address] [address] [address] Nuha Marinelli Potassium [Moles/Vol] 3.8 mmol/L Normal 3.5-5.1 [facility] Comment on above: Performed By: #### B MP, LIPID #### [facility] [address] [address] [address] Nuha Marinelli Sodium [Moles/Vol] 137 mmol/L Normal 136-145 [facility] Comment on above: Performed By: #### B MP, LIPID #### [facility] [address] [address] [address] Nuha Marinelli Urea nitrogen [Mass/Vol] 15.0 mg/dL Normal 7.0-18.0 [facility] Comment on above: Performed By: #### B MP, LIPID #### [facility] [address] [place] [address] Dr. Nuha Marinelli Urea nitrogen/Creatinine [Mass ratio] 19.5 mg/mg Normal [facility] Comment on above: Performed By: #### B MP, LIPID #### [facility] [address] [place] [address] Dr. Nuha Marinelli CBC AUTO DIFFon 11-15-2021 BASO # 0.0 103/ul Normal 0.0-0.1 [facility] Comment on above: Performed By: #### C BC #### [facility] [address] [place] [address] Dr. Nuha Marinelli Basophils/100 WBC (Bld) 0.6 % Normal 0.2-2.0 [facility] Comment on above: Performed By: #### C BC #### [facility] [address] [place] [address] Dr. Nuha Marinelli EO # 0.3 103/ul Normal 0.0-0.7 [facility] Comment on above: Performed By: #### C BC #### [facility] [address] [place] [address] Dr. Nuha Marinelli Eosinophils/100 WBC (Bld) 4.3 % Normal 0.9-7.0 [facility] Comment on above: Performed By: #### C BC #### [facility] [address] [place] [address] Dr. Nuha Marinelli Erythrocyte distribution width (RBC) [Ratio] 13.6 % Normal 11.0-15.0 [facility] Comment on above: Performed By: #### C BC #### [facility] [address] [place] [address] Dr. Nuha Marinelli Hematocrit (Bld) [Volume fraction] 39.8 % Normal 36.0-48.0 [facility] Comment on above: Performed By: #### C BC #### [facility] [address] [place] [address] Dr. Nuha Marinelli Hemoglobin (Bld) [Mass/Vol] 13.0 g/dL Normal 12.0-16.0 [facility] Comment on above: Performed By: #### C BC #### [facility] [address] [place] [address] Dr. Nuha Marinelli IG # 0.02 10e3/ul Normal 0.00-0.03 [facility] Comment on above: Performed By: #### C BC #### [facility] [address] [place] [address] Dr. Nuha Marinelli IG % 0.3 % Normal 0.0-0.5 [facility] Comment on above: Performed By: #### C BC #### [facility] [address] [place] [address] Dr. Nuha Marinelli LYMPH # 2.4 103/ul Normal 1.2-3.8 [facility] Comment on above: Performed By: #### C BC #### [facility] [address] [place] [address] Dr. Nuha Marinelli Lymphocytes/100 WBC (Bld) 36.5 % Normal 20.5-60.0 [facility] Comment on above: Performed By: #### C BC #### [facility] [address] [place] [address] Dr. Nuha Marinelli MANUAL DIFF REQ NO Normal [facility] Comment on above: Performed By: #### C BC #### [facility] [address] [place] [address] Dr. Nuha Marinelli MCH (RBC) [Entitic mass] 28.6 pg Normal 26.7-34.0 [facility] Comment on above: Performed By: #### C BC #### [facility] [address] [place] [address] Dr. Nuha Marinelli MCHC (RBC) [Mass/Vol] 32.7 g/dL Normal 29.9-35.2 [facility] Comment on above: Performed By: #### C BC #### [facility] [address] [place] [address] Dr. Nuha Marinelli MCV (RBC) [Entitic vol] 87.5 fL Normal 81.0-99.0 [facility] Comment on above: Performed By: #### C BC #### [facility] [address] [address] [address] Nuha Marinelli MONO # 0.6 103/ul Normal 0.3-0.8 [facility] Comment on above: Performed By: #### C BC #### [facility] [address] [address] [address] Nuha Marinelli Monocytes/100 WBC (Bld) 9.0 % Normal 1.7-12.0 [facility] Comment on above: Performed By: #### C BC #### [facility] [address] [address] [address] Nuha Marinelli NEUT # 3.3 103/ul Normal 1.4-6.5 [facility] Comment on above: Performed By: #### C BC #### [facility] [address] [place] [address] Dr. Nuha Marinelli Neutrophils/100 WBC (Bld) 49.3 % Normal 43.0-75.0 [facility] Comment on above: Performed By: #### C BC #### [facility] [address] [place] [address] Dr. Nuha Marinelli Platelet mean volume (Bld) [Entitic vol] 9.3 fL Critically low 9.5-13.5 [facility] Comment on above: Performed By: #### C BC #### [facility] [address] [place] [address] Dr. Nuha Marinelli PLT 181 103/ul Normal 150-450 [facility] Comment on above: Performed By: #### C BC #### [facility] [address] [place] [address] Dr. Nuha Marinelli RBC 4.55 106/ul Normal 4.20-5.40 [facility] Comment on above: Performed By: #### C BC #### [facility] [address] [place] [address] Dr. Nuha Marinelli WBC 6.7 103/ul Normal 4.0-11.0 [facility] Comment on above: Performed By: #### C BC #### [facility] [address] [address] [address] Nuha Marinelli LIPID PROFILEon 11-15-2021 CHOL-HDL RATIO NORM SEE BELOW Normal [facility] Comment on above: Result Comment: 3.3 - 4.4 LOW RISK 4.4 - 7.1 AVERAGE RISK 7.1 - 11.0 MODERATE RISK >11.0 HIGH RISK Performed By: #### L IPID, CMP, TSH #### [facility] [address] [address] [address] Nuha Marinelli Cholesterol [Mass/Vol] 219 mg/dL Critically high <=200 [facility] Comment on above: Performed By: #### L IPID, CMP, TSH #### [facility] [address] [place] [address] Dr. Nuha Marinelli Cholesterol in HDL [Mass/Vol] 47 mg/dL Normal 40-60 [facility] Comment on above: Performed By: #### L IPID, CMP, TSH #### [facility] [address] [place] [address] Dr. Nuha Marinelli Cholesterol in LDL [Mass/Vol] 139.2 mg/dL Normal [facility] Comment on above: Performed By: #### L IPID, CMP, TSH #### [facility] [address] [place] [address] Dr. Nuha Marinelli Cholesterol.total/Awilda sterol in HDL [Mass ratio] 4.7 {ratio} Normal [facility] Comment on above: Performed By: #### L IPID, CMP, TSH #### [facility] [address] [place] [address] Dr. Nuha Marinelli HDL NORMAL > or = 60 mg/dl - LO W CARDIOVASCULAR RISK <40 mg/dl - HIGH CARDIOVASCULAR RISK Normal [facility] Comment on above: Performed By: #### L IPID, CMP, TSH #### [facility] [address] [place] [address] Dr. Nuha Marinelli LDL CALC NORMAL SEE BELOW Normal [facility] Comment on above: Result Comment: <100 mg/dl OPTIMAL 100 - 129 mg/dl NEAR OR ABOVE OPTIMAL 130 - 159 mg/dl BORDERLINE HIGH 160 - 189 mg/dl HIGH >190 mg/dl VERY HIGH Performed By: #### L IPID, CMP, TSH #### [facility] [address] [address] [address] Nuha Marinelli Triglyceride [Mass/Vol] 164 mg/dL Critically high <=150 [facility] Comment on above: Performed By: #### L IPID, CMP, TSH #### [facility] [address] [address] [address] Nuha Marinelli VLDL CALC 32.8 mg/dL Normal [facility] Comment on above: Performed By: #### L IPID, CMP, TSH #### [facility] [address] [address] [address] Nuha Marinelli PROF 14(COMP METB)on 022 Albumin [Mass/Vol] 3.7 g/dL Normal 3.4-5.0 [facility] Comment on above: Performed By: #### L IPID, CMP, TSH #### [facility] [address] [address] [address] Nuha Marinelli Albumin/Globulin [Mass ratio] 1.0 {ratio} Normal [facility] Comment on above: Performed By: #### L IPID, CMP, TSH #### [facility] [address] [place] [address] Dr. Nuha Marinelli ALP [Catalytic activity/Vol] 79 U/L Normal 46-116 [facility] Comment on above: Performed By: #### L IPID, CMP, TSH #### [facility] [address] [address] [address] Nuha Marinelli ALT [Catalytic activity/Vol] 32 U/L Normal 14-59 [facility] Comment on above: Performed By: #### L IPID, CMP, TSH #### [facility] [address] [place] [address] Dr. Nuha Marinelli Anion gap [Moles/Vol] 12.6 mmol/L Normal [facility] Comment on above: Performed By: #### L IPID, CMP, TSH #### [facility] [address] [place] [address] Dr. Nuha Marinelli AST [Catalytic activity/Vol] 16 U/L Normal 15-37 [facility] Comment on above: Performed By: #### L IPID, CMP, TSH #### [facility] [address] [address] [address] Nuha Marinelli Bilirubin [Mass/Vol] 0.5 mg/dL Normal 0.2-1.0 [facility] Comment on above: Performed By: #### L IPID, CMP, TSH #### [facility] [address] [place] [address] Dr. Nuha Marinelli Calcium [Mass/Vol] 8.9 mg/dL Normal 8.5-10.1 [facility] Comment on above: Performed By: #### L IPID, CMP, TSH #### [facility] [address] [place] [address] Dr. Nuha Marinelli Chloride [Moles/Vol] 102 mmol/L Normal 98-107 [facility] Comment on above: Performed By: #### L IPID, CMP, TSH #### [facility] [address] [place] [address] Dr. Nuha Marinelli CO2 [Moles/Vol] 27.7 mmol/L Normal 21.0-32.0 [facility] Comment on above: Performed By: #### L IPID, CMP, TSH #### [facility] [address] [place] [address] Dr. Nuha Marinelli Creatinine [Mass/Vol] 0.90 mg/dL Normal 0.55-1.02 [facility] Comment on above: Performed By: #### L IPID, CMP, TSH #### [facility] [address] [place] [address] Dr. Nuha Marinelli EGFR-AF [place] >60 Normal >=60 [facility] Comment on above: Performed By: #### L IPID, CMP, TSH #### [facility] [address] [place] [address] Dr. Nuha Marinelli EGFR-NON AF [place] >60 Normal >=60 [facility] Comment on above: Performed By: #### L IPID, CMP, TSH #### [facility] [address] [address] [address] Nuha Marinelli Globulin (S) [Mass/Vol] 3.7 g/dL Normal [facility] Comment on above: Performed By: #### L IPID, CMP, TSH #### [facility] [address] [address] [address] Nuha Marinelli Glucose [Mass/Vol] 108 mg/dL Critically high 74-106 [facility] Comment on above: Performed By: #### L IPID, CMP, TSH #### [facility] [address] [place] [address] Dr. Nuha Marinelli Potassium [Moles/Vol] 4.3 mmol/L Normal 3.5-5.1 [facility] Comment on above: Performed By: #### L IPID, CMP, TSH #### [facility] [address] [place] [address] Dr. Nuha Marinelli Protein [Mass/Vol] 7.4 g/dL Normal 6.4-8.2 [facility] Comment on above: Performed By: #### L IPID, CMP, TSH #### [facility] [address] [place] [address] Dr. Nuha Marinelli Sodium [Moles/Vol] 138 mmol/L Normal 136-145 [facility] Comment on above: Performed By: #### L IPID, CMP, TSH #### [facility] [address] [place] [address] Dr. Nuha Marinelli Urea nitrogen [Mass/Vol] 18.0 mg/dL Normal 7.0-18.0 [facility] Comment on above: Performed By: #### L IPID, CMP, TSH #### [facility] [address] [place] [address] Dr. Nuha Marinelli Urea nitrogen/Creatinine [Mass ratio] 20.0 mg/mg Normal [facility] Comment on above: Performed By: #### L IPID, CMP, TSH #### [facility] [address] [place] [address] Dr. Nuha Marinelli TSHon 11-15-2021 TSH 1.735 uIU/mL Normal 0.358-3.74 0 [facility] Comment on above: Performed By: #### L IPID, CMP, TSH #### [facility] [address] [address] [address] Nuha Marinelli Vital Signs Date Time Vital Sign Value Performing Clinician Facility 09-23-2024 09:27-0400 Diastolic blood pressure 91 mm[Hg] Juan Domingo MD Work Phone: [facility] 09-23-2024 09:27-0400 Systolic blood pressure 138 mm[Hg] Juan Domingo MD Work Phone: [facility] 09-23-2024 09:26-0400 Heart rate 82 /min Juan Domingo MD Work Phone: [facility] 08-22-2024 09:04-0400 Body height 157.5 cm [facility] 08-22-2024 09:04-0400 Body mass index (BMI) [Ratio] 48.14 kg/m2 [facility] 08-22-2024 09:04-0400 Body weight 119.39 kg [facility] 08-22-2024 09:04-0400 Diastolic blood pressure 88 mm[Hg] [facility] 08-22-2024 09:04-0400 Heart rate 67 /min [facility] 08-22-2024 09:04-0400 Systolic blood pressure 142 mm[Hg] [facility] 08-08-2024 09:55-0400 Body height 157.5 cm Troy Vasquez MD Work Phone: [facility] 08-08-2024 09:55-0400 Body mass index (BMI) [Ratio] 48.29 kg/m2 Troy Vasquez MD Work Phone: [facility] 08-08-2024 09:55-0400 Body weight 119.75 kg Troy Vasquez MD Work Phone: [facility] 08-08-2024 09:55-0400 Diastolic blood pressure 86 mm[Hg] Troy Vasquez MD Work Phone: [facility] 08-08-2024 09:55-0400 Heart rate 76 /min Troy Vasquez MD Work Phone: [facility] 08-08-2024 09:55-0400 Systolic blood pressure 118 mm[Hg] Troy Vasquez MD Work Phone: [facility] 07-07-2024 10:55-0500 Diastolic blood pressure 80 mm[Hg] Le Cristiane STAINED GLASS ARTIST-C Work Phone: [facility] 07-07-2024 10:55-0500 Heart rate 66 /min Le Cristiane [employer]ED [employer] ARTIST-C Work Phone: [facility] 07-07-2024 10:55-0500 Respiratory rate 16 /min Le Cristiane STAINED GLASS ARTIST-C Work Phone: [facility] 07-07-2024 10:55-0500 SaO2% (BldA) [Mass fraction] 98 % Le Cristiane ST[employer]ED GLASS ARTIST-C Work Phone: [facility] 07-07-2024 10:55-0500 Systolic blood pressure 138 mm[Hg] Le Cristiane STAINED GLASS ARTIST-C Work Phone: [facility] 07-07-2024 06:55-0500 Body height 157.48 cm Le Cristiane STAINED GLASS ARTIST-C Work Phone: [facility] 07-07-2024 06:55-0500 Body temperature 97.4 [degF] Le Cristiane STAINED GLASS ARTIST-C Work Phone: [facility] 07-07-2024 06:55-0500 Body weight 119.9 kg Le Cristiane STAINED GLASS ARTIST-C Work Phone: [facility] 07-06-2024 16:45-0500 Body temperature 97.6 [degF] Le Cristiane STAINED GLASS ARTIST-C Work Phone: [facility] 07-06-2024 16:45-0500 Diastolic blood pressure 58 mm[Hg] Le Cristiane STAINED GLASS ARTIST-C Work Phone: [facility] 07-06-2024 16:45-0500 Heart rate 70 /min Le Cristiane STAINED GLASS ARTIST-C Work Phone: [facility] 07-06-2024 16:45-0500 Respiratory rate 18 /min Le Cristiane STAINED GLASS ARTIST-C Work Phone: [facility] 07-06-2024 16:45-0500 SaO2% (BldA) [Mass fraction] 98 % Le Cristiane STAINED GLASS ARTIST-C Work Phone: [facility] 07-06-2024 16:45-0500 Systolic blood pressure 91 mm[Hg] Le Cristiane STAINED GLASS ARTIST-C Work Phone: [facility] 07-06-2024 07:01-0500 Body weight 119.6 kg Le Cristiane STAINED GLASS ARTIST-C Work Phone: [facility] 07-05-2024 23:50-0500 Body height 157.48 cm Le Cristiane STAINED GLASS ARTIST-C Work Phone: [facility] Encounters Encounter Date Encounter Type Care Provider Facility Start: 04-04-2025 ambulatory Le L Cristiane Facility: [facility] Start: 02-22-2025 End: 02-22-2025 ambulatory GISSELLE PAGAN Facility:[facility] Start: 01-02-2025 End: 01-02-2025 ambulatory Le L Cristiane Facility: [facility] Start: 09-29-2024 End: 09-29-2024 Refill Juan Domingo MD Work Phone: [facility] Comment on above: Medication Refill Start: 09-23-2024 End: 09-23-2024 Office outpatient new 45 minutes Le Huitron [employer] Work Phone: [facility] Comment on above: NSTEMI (non-ST eleva dionne myocardial infarction) (HCC); Hypertension, unspecified type; Atrial flutter (HCC) Start: 09-23-2024 End: 09-23-2024 ambulatory JUAN DOMINGO [facility] Ambulatory Start: 09-12-2024 End: 09-12-2024 Orders Only Juan Domingo MD Work Phone: [facility] Comment on above: Atrial flutter (HCC) (Primary Dx) Start: 08-30-2024 End: 08-30-2024 ambulatory Le L Cristiane Facility:[facility] Start: 08-22-2024 End: 08-22-2024 Professional / ancillary services management Lauren Eastman LPN [facility] Comment on above: Paroxysmal atrial fi brillation (Multi) Start: 08-22-2024 End: 08-22-2024 ambulatory [facility] Start: 08-17-2024 End: 08-17-2024 Transcribe Orders Taty Block TECHNOLOGIST [facility] Comment on above: NSTEMI (non-ST eleva dionne myocardial infarction) (HCC) (Primary Dx); Hypertension, unspecified type Start: 08-15-2024 End: 08-15-2024 ambulatory Le L Cristiane Facility: [facility] Start: 08-09-2024 End: 08-09-2024 ambulatory Le L Cristiane Facility:[facility] Start: 08-08-2024 End: 08-08-2024 Office outpatient visit 25 minutes Troy Vasquez MD Work Phone: [facility] Comment on above: Paroxysmal atrial fi brillation (Multi) (Primary Dx); Myocardial infarction type 2 (Multi) Start: 08-08-2024 End: 08-08-2024 ambulatory [facility] Start: 07-15-2024 End: 07-15-2024 ambulatory Le L Cristiane Facility: [facility] Start: 07-11-2024 End: 07-11-2024 ambulatory El L Cristiane Facility:[facility] Start: 07-07-2024 End: 07-07-2024 Emergency department patient visit Le Huitron ST[employer]ED [employer] ARTIST-C Work Phone: [facility] Work Phone: Start: 07-05-2024 End: 07-06-2024 Evaluation and management of inpatient Le Huitron ST[employer]ED [employer] ARTIST-C Work Phone: [facility] Work Phone: Start: 04-11-2024 End: 04-11-2024 ambulatory Le L Cristiane Facility:[facility] Start: 03-28-2024 ambulatory Le L Cristiane Facility: [facility] Start: 03-21-2024 End: 03-21-2024 Bamboo flowsheet Alecia Kane Felter WHOLESALE REPRESENTATIVE-[employer] Work Phone: [facility] Start: 03-21-2024 End: 03-21-2024 Bamboo flowsheet Alecia A Felter WHOLESALE REPRESENTATIVE-[employer] Work Phone: [facility] Start: 03-21-2024 End: 03-21-2024 Office outpatient visit 15 minutes Alecia Kane Felter WHOLESALE REPRESENTATIVE-[employer] Work Phone: [facility] Comment on above: Psoriasis vulgaris ( CMS/HCC); Rash and other nonspecific skin eruption Start: 03-21-2024 End: 03-21-2024 ambulatory ALECIA A FELTER Not Available Start: 01-25-2024 End: 01-25-2024 Bamboo flowsheet Alecia A Felter WHOLESALE REPRESENTATIVE-[employer] Work Phone: [facility] Start: 01-25-2024 End: 01-25-2024 Bamboo flowsheet Alecia A Felter WHOLESALE REPRESENTATIVE-[employer] Work Phone: [facility] Start: 01-25-2024 End: 01-25-2024 Office outpatient visit 25 minutes Alecia Kane Felter WHOLESALE REPRESENTATIVE-[employer] Work Phone: [facility] Comment on [...] Start: 07-07-2024 Plain chest X-ray Le Huitron [employer]ED [employer] ARTIST-C Work Phone: Start: 07-06-2024 [facility] Angio (Right) Le Huitron [employer]ED GL[employer] ARTIST-C Work Phone: Start: 07-06-2024 Le ruano STAINED GLASS ARTIST-C Work Phone: Start: 06-08-2024 Mammography Juan Domingo MD Work Phone: Start: 01-25-2024 CRYOTHERAPY SKIN LESION Alecia Ortez WHOLESALE REPRESENTATIVE-[employer] Work Phone: Start: 01-25-2024 End: 01-25-2024 SKIN / NAIL BIOPSY Alecia Ortez WHOLESALE REPRESENTATIVE-[employer] Work Phone: Start: 05-18-2013 Colonoscopy Alecia Farrell lter WHOLESALE REPRESENTATIVE-[employer] Work Phone: Plan of Treatment Date Care Activity Detail Author Start: 06-08-2025 Screening for malignant neoplasm of breast Mammogram [facility] Start: 03-21-2025 End: 03-21-2025 Patient encounter procedure 03/21/2025 10:35 AM EST Office Visit [facility] [address] [place] [address] Alecia Ortez APRN-[employer] [address] [place] [address] DANIELLE HAMMER Start: 03-20-2025 End: 03-20-2025 Patient encounter procedure 03/20/2025 10:00 AM EST Office Visit [facility] [address] [place] [phone] Juan Domingo MD [address] [place] [address] [facility] Start: 12-23-2024 End: 12-23-2024 Patient encounter procedure 12/23/2024 9:00 AM EDT Office Visit [facility] [address] [place] [phone] Troy Vasquez MD [address] [place] [address] [facility] Start: 09-23-2024 End: 09-23-2024 Patient encounter procedure 09/23/2024 9:30 AM EDT Office Visit [facility] [address] [place] [phone] Le Huitron, [employer] [address] [phone] Juan Domingo MD [address] [place] [address] [facility] Start: 09-22-2024 COVID-19 Vaccine ( season) COVID-19 Vaccine ( season) [facility] Start: 08-22-2024 End: 08-08-2025 ECG 12 Lead [facility] Service Area Work Phone: Comment on above: Expected: 08/22/2024 (Approximate), Expi res: 08/08/2025 Start: 08-22-2024 End: 08-22-2024 Professional / ancillary services management 08/22/2024 9:00 AM EDT Ancillary Procedure [facility] [address] [place] [address] [facility] Start: 07-06-2024 [facility] Start: 07-06-2024 [facility] Start: 07-05-[address] [facility] Start: 03-21-2024 End: 03-21-2024 Patient encounter procedure 03/21/2024 10:40 AM EST Office Visit [facility] [address] [place] [phone] Alecia Ortez, WHOLESALE REPRESENTATIVE-[employer] [address] [place] [address] Arrived [facility] Comment on above: Arrived Start: 02-15-2024 End: 02-15-2024 Patient encounter procedure 02/15/2024 9:35 AM EDT Office Visit [facility] [address] [place] [address] Alecia Ortez, WHOLESALE REPRESENTATIVE-[employer] [address] [place] [address] [facility] Start: 01-25-2024 End: 01-25-2024 Patient encounter procedure 01/25/2024 9:55 AM EDT Office Visit [facility] [address] [place] [phone] Alecia Ortez, WHOLESALE REPRESENTATIVE-[employer] [address] [place] [address] Arrived [facility] Comment on above: Arrived Start: 01-17-2024 COVID-19 Vaccine ( season) COVID-19 Vaccine ( season) [facility] Start: 01-17-2024 COVID-19 Vaccine ( season) COVID-19 Vaccine ( season) [facility] Start: 01-17-2024 Influenza vaccination Influenza Vaccine (#1) [facility] Start: 05-18-2023 Screening for malignant neoplasm of colon [facility] Start: 03-14-2021 Pneumococcal Vaccine: 65+ Years (2 of 2 - PPSV23 or PCV20) Pneumococcal Vaccine: 65+ Years (2 of 2 - PPSV23 or PCV20) [facility] Start: 03-14-2021 Pneumococcal Vaccine: Age 50+ (2 of 2 - PPSV23) Pneumococcal Vaccine: Age 50+ (2 of 2 - PPSV23) [facility] Start: 05-09-2020 Pneumococcal vaccination Pneumococcal Vaccine (2 of 2 - PPSV23) [facility] Start: 2018 Fall risk assessment Falls Risk Assessment [facility] Start: 2013 Respiratory Syncytial Virus Immunization: Risk, 60-74 Risk, or 75+ (1 - Risk 60-74 years 1-dose series) Respiratory Syncytial Virus Immunization: Risk, 60-74 Risk, or 75+ (1 - Risk 60-74 years 1-dose series) [facility] Start: 2013 RSV High Risk: (Elderly (60+) or Population) (1 - Risk 60-74 years 1-dose series) RSV High Risk: (Elderly (60+) or Population) (1 - Risk 60-74 years 1-dose series) [facility] Start: 08-03-2003 Screening for malignant neoplasm of colon Flexible sigmoidoscopy [facility] Start: 1993 Screening for malignant neoplasm of breast Mammogram [facility] Start: 08-03-1975 DTaP/Tdap/Td Vaccines (1 - Tdap) DTaP/Tdap/Td Vaccines (1 - Tdap) [facility] Start: 08-03-1971 Diabetes mellitus screening Diabetes Screening [facility] Start: 08-03-1971 Hepatitis C screening Hepatitis C Screening [facility] Start: 1965 Depression screening using PHQ-9 (Patient Health Questionnaire 9) score Depression Screening/Follow-Up (PHQ-2/9) [facility] Start: 1956 Medicare Wellness Visit Medicare Wellness Visit [facility] Start: 1953 Lipid panel Lipid Panel [facility] Start: 1953 Medicare Annual Wellness Visit Medicare Annual Wellness Visit (AWV) [facility] Start: 1953 Screening for malignant neoplasm of colon [facility] Start: 1953 Screening for osteoporosis [facility] Start: 1953 Tetanus vaccination Tetanus: Every 10yrs [facility] End: 09-12-2027 12 lead ECG ECG 12 Lead ECG Routine Atrial flutter (HCC) 1 Occurrences starting 09/12/2024 until 09/12/2027 [facility] Work Phone: Comment on above: 1 Occurrences starting 09/12/2024 until 09/12/2027 Dermatopathology exam Dermatopat hology exam Pathology and Cytology Timed Neoplasm of unspecified behavior of bone, soft tissue, and skin Release Upon Ordering for 1 Occurrences starting 01/25/2024 [facility] Work Phone: Comment on above: Release Upon Ordering for 1 Occurrences starting 01/25/2024 Patient Education [facility] Work Phone: Patient referral [facility] Work Phone: Immunizations Immunization Date Immunization Notes Care Provider Michelle rangel 02-23-2024 influenza, seasonal, injectable Troy Vasquez MD Work Phone: [facility] Work Phone: 04-01-2023 influenza virus vaccine, unspecified formulation Alecia Ortez APRN-[employer] Work Phone: [facility] Healthcare Payers Date Payer Category Payer Self-pay 2023 Private Health Insurance [id number] 2021 Medicare supplementa l policy (as second payer) [id number] 2018 Medicare [id number] 1959 Medicare [id number] 1959 Private Health Insurance [facility] [id number] 1953 Unknown [id number] 2.16.840.1.438714.3.579.2. 593 1953 Unknown [id number] 2.16.840.1.444005.3.579.2. 593 1953 Unknown [id number] 2.16.840.1.162761.3.579.2. 1259 1953 Unknown [id number] 2.16.840.1.618802.3.579.2. 1259 1953 Unknown [id number] 2.16.840.1.082182.3.579.2. 1259 1953 Unknown [id number] 2.16.840.1.408069.3.579.2. 1259 1953 Unknown [id number] 2.16.840.1.875491.3.579.2. 1244 1953 Unknown [id number] 2.16.840.1.436280.3.579.2. 1244 1953 Unknown [id number] 2.16.840.1.285337.3.579.2. 903 1953 Unknown [id number] 2.16.840.1.671942.3.579.2. 727 1953 Unknown [id number] 2.16.840.1.009077.3.579.2. 727 1953 Unknown [id number] 2.16.840.1.832630.3.579.2. 727 1953 Unknown [id number] 2.16.840.1.633199.3.579.2. 727 1953 Unknown [id number] 2.16.840.1.824701.3.579.2. 727 1953 Unknown [id number] 2.16.840.1.099764.3.579.2. 727 1953 Unknown [id number] 2.16.840.1.527761.3.579.2. 727 1953 Unknown [id number] 2.16.840.1.361408.3.579.2. 727 1953 Unknown [id number] 2.16.840.1.237352.3.579.2. 727 1953 Unknown [id number] 2.16.840.1.316565.3.579.2. 727 1953 Unknown [id number] 2.16.840.1.614058.3.579.2. 727 1953 Unknown [id number] 2.16840.1.330455.3.579.2. 72 Unknown Regular Insurance [id number] Unknown [id number] 2.16.840.1.291597.3.579.2. 531 Unknown [id number] 2.16.840.1.793653.3.579.2. 531 Social History Date Type Detail Facility Start: 05-05-2023 End: 09-23-2024 Tobacco smoking status VAIS Never smoked tobacco [facility] Start: 01-25-2024 End: 08-22-2024 Alcoholic beverage intake Lifetime non-drinker (finding) [facility] Start: 01-25-2024 End: 09-23-2024 History of Social function [facility] Start: 01-25-2024 End: 09-23-2024 Tobacco use panel [facility] Start: 05-05-2023 Alcohol Comment caffeine: 1-2 cups per day [facility] Start: 1955 Sex assigned at Not on file [facility] Start: 07-06-2024 End: 07-07-2024 Sex Female (finding) [facility] Start: 1955 Sex Assigned At Female F [facility] Start: 08-08-2024 End: 09-23-2024 Tobacco use and exposure Smokeless tobacco non-user [facility] Work Phone: Start: 07-29-2024 End: 08-22-2024 Exposure to SARS-CoV-2 (event) Not sure [facility] Tobacco smoking stat us NHIS Tobacco smoking consumption unknown [facility] Start: 09-23-2024 Alcoholic beverage intake Ex-drinker (finding) [facility] Goals Date Patient Goal Desired Activity /State Functional Status Date Assessment Result Facility 07-06-2024 Functional status Patient at Baseline [facility] Work Phone: Mental Status Date Assessment Result Facility 07-06-2024 Cognitive function Cognitive Sta tus Patient at Baseline [facility] Work Phone: Clinical Notes 01-25-2024 to 02-22-2025 Juan Domingo MD - 09/23/2024 10:16 AM EDTPatient InstructionsLauren Eastman LPN - 08/22/2024 9:00 AM Antonino Vasquez MD - 08/08/2024 10:00 AM EDTPatient Instructions Note Date & Type Note Facility 02-22-2025 Note Patient Education Cardiovascular Supraventricular Tachycardia, Adult Supraventricular tachycardia (SVT) is a kind of abnormal heartbeat. It makes your heart beat very fast. This may last for a short time and then return to normal, or it may last longer. A normal resting heartbeat is 60?100 times a minute. This condition can make your heart beat more than 150 times a minute. Times of having a fast heartbeat (episodes) can be scary, but they are usually not dangerous. In some cases, they may lead to heart failure if they: ??? Happen many times a day. ??? Last longer than a few seconds. What are the causes? This condition happens when electrical signals are sent out from areas of the heart that do not normally send signals for the heartbeat. What increases the risk? You are more likely to develop this condition if you are: ??? Middle aged or younger. ??? Female. The following factors may also make you more likely to develop this condition: ??? Stress. ??? Feeling worried or nervous (anxiety). ??? Tiredness. ??? Smoking. ??? Stimulant drugs, such as cocaine and methamphetamine. ??? Alcohol. ??? Caffeine. ??? . ??? Having certain medical conditions. What are the signs or symptoms? A pounding heart. ??? A feeling that your heart is skipping beats (palpitations). ??? Weakness. ??? Trouble getting enough air. ??? Pain or tightness in your chest. ??? Dizziness or feeling like you are going to pass out (faint). ??? Feeling worried or nervous. ??? Sweating. ??? Feeling like you may vomit (nausea). ??? Passing out. ??? Tiredness. Sometimes, there are no symptoms. How is this treated? Treatment may include: ??? Vagal nerve stimulation. Ways to do this include: ? Holding your breath and pushing, as though you are pooping (having a bowel movement). ? Massaging an area on one side of your neck. Do not try this yourself. Only a doctor should do this. If done the wrong way, it can lead to a stroke. ? Bending forward with your head between your legs. ? Coughing while bending forward with your head between your legs. ? Putting an ice-cold, wet towel on your face. ??? Medicines that prevent attacks. ??? Medicine to stop an attack given through an IV tube at the hospital. ??? A small electric shock (cardioversion) that stops an attack. ??? A procedure to get rid of cells in the area that is causing the fast heartbeats (radiofrequency ablation). If you do not have symptoms, you may not need treatment. Follow these instructions at home: Stress ??? Avoid things that make you feel stressed. ??? To deal with stress, try: ? Doing yoga or meditation. ? Being out in nature. ? Listening to relaxing music. ? Doing deep breathing. ? Taking steps to be healthy, such as getting lots of sleep, exercising, and eating a balanced diet. ? Talking with a mental health doctor. Lifestyle ??? Try to get at least 7 hours of sleep each night. ??? Do not smoke or use any products that contain nicotine or tobacco. If you need help quitting, ask your doctor. ??? Do not drink alcohol if it gives you a fast heartbeat. ??? If alcohol does not seem to give you a fast heartbeat, limit your alcohol use. If you drink alcohol: ? Limit how much you have to: ? 0?1 drink a day for women who are not . ? 0?2 drinks a day for men. ? Know how much alcohol is in your drink. In the [place] one drink equals one 12 oz bottle of beer (355 mL), one 5 oz glass of wine (148 mL), or one 1? oz glass of hard liquor (44 mL). ??? Be aware of how caffeine affects you. ? If caffeine gives you a fast heartbeat, do not eat, drink, or use anything with caffeine in it. ? If caffeine does not seem to give you a fast heartbeat, limit how much caffeine you eat, drink, or use. ??? Do not use stimulant drugs. If you need help quitting, ask your doctor. General instructions ??? Stay at a healthy weight. ??? Exercise regularly. Ask your doctor about good activities for you. Try one or a mixture of these: ? 150 minutes a week of gentle exercise, like walking or yoga. ? 75 minutes a week of exercise that is very active, like running or swimming. ??? Do vagus nerve treatments to slow down your heartbeat as told by your doctor. ??? Take fgwa-vgx-iqbfbyt and prescription medicines only as told by your doctor. ??? Keep all follow-up visits. Contact a doctor if: ??? You have a fast heartbeat more often. ??? Times of having a fast heartbeat last longer than before. ??? Home treatments to slow down your heartbeat do not help. ??? You have new symptoms. Get help right away if: ??? You have chest pain. ??? Your symptoms get worse. ??? You have trouble breathing. ??? Your heart beats very fast for more than 20 minutes. ??? You pass out. These symptoms may be an emergency. Get medical help right away. Call your local emergency services (more content not included)... [facility] 09-23-2024 Note Electrophysiology Cl inic Consult Heart & Vascular [facility] 09/23/2024 Juan Domingo MD [address] [facility] [address] Patient: Keely Chopra Date of : [...] her flecainide and apixaban. She has a [employer] mobile device which she will use to [...] reported atrial fibrillation. The patient lives in [facility]. She had experienced tachycardia that led to a brief hospitalization in June. She was felt to have atrial fibrillation and was started on therapeutic anticoagulation with apixaban. She was placed on metoprolol. She was seen in outpatient follow-up with a local net maker. The patient was experiencing some continued palpitations [...] Final Result by Juan Domingo MD (09/23/2024 0991) HOME Medications: Patient's Medications New Prescriptions DILTIAZEM [...] AUTHENTICATED BY JUAN DOMINGO, ON 09/23/2024 10:20:40 [facility] 09-23-2024 History of Present illness Narrative Electrophysiology Clinic Consult Heart & Vascular [facility] 09/23/2024 Juan Domingo MD [address] [facility] [address] [facility] [id number] Patient: Keely Chopra Date of : 1955 [...] her flecainide and apixaban. She has a [employer] mobile device which she will use to [...] reported atrial fibrillation. The patient lives in [facility]. She had experienced tachycardia that led to a brief hospitalization in June. She was felt to have atrial fibrillation and was started on therapeutic anticoagulation with apixaban. She was placed on metoprolol. She was seen in outpatient follow-up with a local net maker. The patient was experiencing some continued palpitations [...] Final Result by Juan Domingo MD (09/23/2024 2807) HOME Medications: Patient's Medications New Prescriptions DILTIAZEM [...] Smokeless Tobacco Never documented in this encounter [facility] 09-23-2024 Instructions Jennifer Sampson RN - 09/23/2024 10:02 AM EDT AVS printed and reviewed. If you have any questions or concerns about your visit today with Dr. Domingo, please contact Milagro RN at [phone] . documented in this encounter [facility] 08-22-2024 History of Present illness Narrative Patient [...] (5' 2 ) documented in this encounter [facility] Work Phone: 08-08-2024 History of Present illness Narrative Chief Complaint Patient presents with Follow-up [facility] dc 07/06 Subjective Keely Chopra is a [...] palpitation and was in the hospital at [place] with an episode of atrial flutter. Assessment [...] discussion and plan. documented in this encounter [facility] Work Phone: 08-08-2024 Instructions Mariela Cullen [...] monitor Follow up documented in this encounter [facility] Work Phone: 07-06-[address] [facility] 07-06-2024 Consult note Note Date/Time July 06, 2024 11:05am [facility] [address] [place] [address] Cardiology Consult Note Signed Patient: Keely Chopra MR#: [id number] : 1955 Acct:[id number] Age/Sex: 68 / F Adm Date: 5 Loc: Room: [address] [place] [address] Type: ADM IN Attending Dr: Christina Julien MD Copies to: Le Huitron [employer] MD Troy Baker MD~ Cardiology HPI History of Present Illness Consult Date: 07/06/24 Reason for Consult: Cardiac consultation requested for evaluation of elevated troponin and atrial fibrillation HPI: Ms. Chopra is a 68 year old female with no prior cardiac history except hypertension presented to [facility] complaining of dizziness, palpitation and left [...] system is negative other 1 mentioned above [facility] Source: Unable to Obtain Medical History (Updated 07/06/24 @ 00:14 by Akua Ellsworth APRN) Tear meniscus knee surgical intervention Problem List clean-up per request of Phys. EHR [facility] Anxiety Problem List clean-up per request of Phys. EHR [facility] Hypertension Problem List clean-up per request of Phys. EHR [facility] Surgical History (Updated 04/29/23 @ 13:50 by Melty Ak) H/O breast biopsy Problem List clean-up per request of Phys. EHR [facility] History of appendectomy Problem List clean-up per [...] x10E3/uL Lymph # (Auto) 1.9 (1.00-4.8) x10E3/uL [place] # (Auto) 0.5 (0.0-0.8) x10E3/uL Eos # [...] and interpreted as documented below: (EKG at [place] showed atrial fibrillation with RVR and nonspecific [...] statin Documented By: Troy Vasquez MD 07/06/24 1053 Signed By: <Electronically signed by MD Troy Vasquez> 07/06/24 1106 [facility] Work Phone: 1(965) 917-661802-19-2025 [place] [address] Cardiology Consult Note Signed Patient: Keely Chopra MR#: [id number] : 1955 Acct:[id number] Age/Sex: 68 / F Adm Date: 5 Loc: 3T Room: [address] [place] [address] Type: ADM IN Attending Dr: Christina Julien MD Copies to: MD Troy Frausto CNP, MD~ Cardiology HPI History of Present Illness Consult Date: 07/06/24 Reason for Consult: Cardiac consultation requested for evaluation of elevated troponin and atrial fibrillation HPI: Ms. Chopra is a 68 year old female with no prior cardiac history except hypertension presented to [facility] complaining of dizziness, palpitation and left [...] system is negative other 1 mentioned above [facility] Source: Unable to Obtain Medical History (Updated 07/06/24 @ 00:14 by Akua Ellsworth APRN) Tear meniscus knee surgical intervention Problem List clean-up per request of Phys. EHR [facility] Anxiety Problem List clean-up per request of Phys. EHR [facility] Hypertension Problem List clean-up per request of Phys. EHR [facility] Surgical History (Updated 04/29/23 @ 13:50 by Melty Ak) H/O breast biopsy Problem List clean-up per request of Phys. EHR Cmte History of appendectomy Problem List clean-up per request of Phys. EHR Cmte History of hysterectomy Problem List clean-up per request of Phys. EHR [facility] Family History (Updated 07/06/24 @ 00:15 by [...] x10E3/uL Lymph # (Auto) 1.9 (1.00-4.8) x10E3/uL [place] # (Auto) 0.5 (0.0-0.8) x10E3/uL Eos # [...] and interpreted as documented below: (EKG at [place] showed atrial fibrillation with RVR and nonspecific [...] MD 07/06/24 1059 Signed By: 07/06/[address] [facility]02-19-2025 History and physical note Author Akua Ellsworth [facility] Note Date/Time July 06, 2024 3:37am [facility] [address] [place] [address] Hospitalist H&P Signed Patient: Keely Chopra MR#: [id number] : 1955 Acct:[id number] Age/Sex: 68 / F Adm Date: 5 Loc: 3T Room: [address] [place] [address] Type: ADM IN Attending Dr: Mahendra Garcia MD Copies to: MD Le Pryor CNP, WHOLESALE REPRESENTATIVE~ HPI DATE OF EXAMINATION: 07/05/24 CHIEF COMPLAINT: dizziness, chest pressure HISTORY OF PRESENT ILLNESS: Ms. Chopra is a 68-year-old female with a PMH of HTN, anxiety, RLS that presented to [facility] emergency room for dizziness, lightheadedness, chest pressure and jaw pain. Patient reports that she was grocery shopping whenshe developed dizziness and lightheadedness and some jaw pain. She finished [employer] shopping and drove home sat in the [...] still but not as bad as earlier. [facility] chart review?initial EKG A-fib with RVR. [...] She wastransferred here as inpatient [facility] telemetry floor. Review of Systems Review of Systems Review of systems: A 10 point review of systems was obtained, negative unless noted in the HPI or below. [facility] Medical History (Updated 07/06/24 @ 00:14 by Akua Ellsworth APRN) Tear meniscus knee surgical intervention Problem List clean-up per request of Phys. EHR Cmte Anxiety Problem List clean-up per request of Phys. EHR Cmte Hypertension Problem List clean-up per request of Phys. EHR [facility] Surgical History (Updated 04/29/23 @ 13:50 by Melty Ak) H/O breast biopsy Problem List clean-up per request of Phys. EHR Cmte History of appendectomy Problem List clean-up per request of Phys. EHR Cmte History of hysterectomy Problem List clean-up per request of Phys. EHR [facility] Family History (Updated 07/06/24 @ 00:15 by Akua Ellsworth APRN) Mother Cancer [facility] Problem: Diagnosed with Cancer History of ovarian [...] A-fib- converted with 10mg diltiazem IVP in [place] ER - Stat EKG is sinus rhythm- [...] 3 Documented By: Akua Ellsworth APRN 07/05/24 9130 Signed By: <Electronically signed by RAO Ellsworth> 07/06/24 0022 <Electronically signed by Mahendra Garcia MD> 07/06/24 0337 [facility] Work Phone: 1(303) 216-528902-19-2025 [place] [address] Hospitalist H&P Signed Patient: Keely Chopra MR#: [id number] : 1955 Acct:[id number] Age/Sex: 68 / F Adm Date: 5 Loc: Room: [address] [place] [address] Type: ADM IN Attending Dr: Mahendra Garcia MD Copies to: MD Le Pryor CNP, APRN~ HPI DATE OF EXAMINATION: 07/05/24 CHIEF COMPLAINT: dizziness, chest pressure HISTORY OF PRESENT ILLNESS: Ms. Chopra is a 68-year-old female with a PMH of HTN, anxiety, RLS that presented to [facility] emergency room for dizziness, lightheadedness, chest pressure and jaw pain. Patient reports that she was grocery shopping whenshe developed dizziness and lightheadedness and some jaw pain. She finished [employer] shopping and drove home sat in the [...] still but not as bad as earlier. [facility] chart review?initial EKG A-fib with RVR. [...] She wastransferred here as inpatient to the [facility] telemetry floor. Review of Systems Review of Systems Review of systems: A 10 point review of systems was obtained, negative unless noted in the HPI or below. [facility] Medical History (Updated 07/06/24 @ 00:14 by Akua Ellsworth APRN) Tear meniscus knee surgical intervention Problem List clean-up per request of Phys. EHR [facility] Anxiety Problem List clean-up per request of Phys. EHR [facility] Hypertension Problem List clean-up per request of Phys. EHR [facility] Surgical History (Updated 04/29/23 @ 13:50 by Melty Ak) H/O breast biopsy Problem List clean-up per request of Phys. EHR [facility] History of appendectomy Problem List clean-up per request of Phys. EHR [facility] History of hysterectomy Problem List clean-up per request of Phys. EHR [facility] Family History (Updated 07/06/24 @ 00:15 by [...] A-fib- converted with 10mg diltiazem IVP in [place] ER - Stat EKG is sinus rhythm- [...] 3 Documented By: Akua Ellsworth APRN 07/05/24 2355 Signed By: 07/06/24 0022 07/06/[address] [facility]02-19-2025 Evaluation note* Diagnosis Onset Date Resolution Status Admit Date A-fib acute July 05, 2024 11:26pm NSTEMI (non-ST elevated myocardial infarction) acute July 05, 2024 11:26pm [facility] Work Phone: 1(833) 357-513011-04-2024 History of Present illness Narrative* Alecia Ortez, RAO-[employer] - 03/21/2024 10:40 AM EST Follow up [...] below: 1. Psoriasis vulgaris (CMS/HCC) Left [place], Right Postauricular Area, Scalp Well-marginated erythematous papules/plaques [...] 1 year, follow up [id number] History of Present illness Narrative* HEAVEN Smart [...] 4. Seborrheic keratosis, inflamed Neck - Anterior [place] and brown stuck on verrucous scaly papule [...] limited to risks of scarring, darker or parish visitor pigmentary changes, recurrence, incomplete removal and infection. [...] Anterior 5. Psoriasis vulgaris (CMS/HCC) Left [place], Right Postauricular Area, Scalp Well-marginated erythematous papules/plaques [...] lesion: 0.7 x 0.6 cm Left [place] pearly papule Lesion biopsy Type of biopsy: [...] psoriasis/ rash follow [facility]* Diagnosis Psoriasis vulgaris (CMS/HCC) Other psoriasis Rash and other nonspecific skin eruption documented in this encounter [facility] HealthcareEvaluation note* Diagnosis Seborrheic keratosis Lentigines Melanocytic nevus of trunk Benign neoplasm of skin of trunk, except scrotum Seborrheic keratosis, inflamed Psoriasis vulgaris (CMS/HCC) Other psoriasis Rash and other nonspecific skin eruption Neoplasm of unspecified behavior of bone, soft tissue, and skin documented in this encounter [facility] HealthcareEvaluation note* Diagnosis Paroxysmal atrial fibrillation (Multi)- Primary Atrial fibrillation Myocardial infarction type 2 (Multi) documented in this encounter [facility] Work Phone: Evaluation note* Diagnosis NSTEMI (non-ST elevated myocardial infarction) (HCC)- Primary Acute myocardial infarction, subendocardial infarction, episode of care unspecified Hypertension, unspecified type [facility] Diagnosis Paroxysmal atrial fibrillation (Multi) Atrial fibrillation documented in this encounter [facility] Work Phone: Evaluation note* Diagnosis Atrial flutter (HCC)- Primary Atrial flutter [facility] Diagnosis NSTEMI (non-ST elevated myocardial infarction) (HCC) Acute myocardial infarction, subendocardial infarction, episode of care unspecified Hypertension, unspecified type Atrial flutter (HCC) Atrial flutter [facility] Additional Instructions DISCHARGE INSTRUCTIONS FOR CARDIAC NIGHT ORDER SELECTOR PROCEDURE: Heart Cath The following instructions have [...] cold, numb, blue or white, call the net maker immediately. 4. ACTIVITY: You are advised to [...] bottle, follow the instructions on the bottle. [facility] is not responsible for incorrect prescription information provided by the patient during their visit. Do not stop your medications without consulting your health care provider. Please take the list with you to your next doctor's appointment.[facility] Work Phone: Hospital Discharge instructions Additional Instructions Take metoprolol as prescribed. Follow-up with your net maker for ongoing management.[facility] Work Phone: Reason for visit Narrative* Cardiovascular (Routine) - Authorized Specialty Diagnoses / Procedures Referred By Contac t Referred To Contact Diagnoses Paroxysmal atrial fibrillation (Multi) Procedures ECG 12 Lead Troy Vasquez MD [address] [facility] [address], [address] [address] Phone: tel: fax: Referral ID Status Reason Start Date Expiration Date V isits Requested Visits Authorized [id number] Authorized 08/08/2024 08/08/2025 1 1 [facility] Work Phone: Summary Purpose Family History [...] DATE CREATED AUTHOR AUTHOR'S ORGANIZ ATION 03/22/2024 [facility] EPIC DATE CREATED AUTHOR AUTHOR'S ORGANIZ ATION 07/20/2024 [facility] DATE CREATED AUTHOR AUTHOR'S ORGANIZ ATION 08/23/2024 [facility] DATE CREATED AUTHOR AUTHOR'S ORGANIZ ATION 09/25/2024 [facility] DATE CREATED AUTHOR AUTHOR'S ORGANIZ ATION 01/03/2025 [facility] DATE CREATED AUTHOR AUTHOR'S ORGANIZ ATION 01/04/2025 [facility] DATE CREATED AUTHOR AUTHOR'S ORGANIZ ATION 02/25/2025 [facility] Center Reason for Visit (unrecogniz ed section and content) Reason Comments Follow-up Reason Comments Skin Check Reason Comments Follow-up [facility] dc 07/06 Reason Comments Establish Care Specialty Diagnoses / Procedures Referred By Contac t Referred To Contact Cardiology Diagnoses NSTEMI (non-ST elevated myocardial infarction) (HCC) Hypertension, unspecified type Le Huitron, [employer] [address] [place] [address] Phone: tel: fax: Juan Domingo MD [address] [place] [address] Phone: tel: fax: Referral ID Status Reason Start Date Expiration Date Visits Re quested Visits Authorized [id number] Closed 08/17/2024 08/17/2025 1 1 Reason Onset Date Comments Medication Refill 09/29/2024 Care Teams (unrecognized sec tion and content) Team Status: Active Member Role Status Dates FRIDA العراقي Primary Care Provider Active Team Status: Inactive [...] 07, 2024 End: July 07, 2024 Machine Wedger Relationship Specialty Start Date End Date CristianeLe so APRN-GENIE [address] [place] [address] PCP - General 08/08/24 Machine Wedger Relationship Specialty Start Date End Date CristianeLe CNP [address] [place] [address] PCP - General Nurse Practitioner 08/17/24 Machine Wedger Relationship Specialty Start Date End Date CristianeLe so APRN-GENIE [address] [place] [address] PCP - General 08/08/24 Machine Wedger Relationship Specialty Start Date End Date CristianeLe so CNP [address] [place] [address] PCP - General Nurse Practitioner 08/17/24 Machine Wedger Relationship Specialty Start Date End Date CristianeLe so CNP [address] [place] [address] PCP - General Nurse Practitioner 08/17/24 Machine Wedger Relationship Specialty Start Date End Date CristianeLe CNP [address] [place] [address] PCP - General Nurse Practitioner 08/17/24 FOR [...] BE BASED ON THE PRIMARY CLINICAL RECORDS. [facility]. provides no warranty or guarantee of the accuracy or completeness of information in this document.
--- OUTSIDE RECORDS SUMMARY | 2025-02-28 05:18 | XMS_ITS | Encounter Summary ---
Author Organization [facility] Address [address] [place] [address] Phone Care Team Providers Care Cutting Room Supervisor Name Role Phone Joan Huitron APRN-GENIE Primary Care Provider [phone] Encounter Details Date Type Department Care Team (Late st Contact Info) Description 07/06/2024 Scanned Document [facility] [address] [place] [id number] Scanning, Generic Provider Social History Tobacco Use [...] Procedure Name Priority Date/Time Associated Diagnosis Comments CARDIAC CATHETERIZATION PROCEDURE - ONBASE SCAN 07/06/2024 documented in this encounter Results * Cardiac Catheterization - Onbase Scan (07/06/2024) Narrative 07/06/2024 Ordered by an unspecified provider. us Generic Provider Scanning CV CARDIAC CATH PROCED URES Final Result documented in this encounter Visit Diagnoses Not on filedocumented in this encounter Care Teams Cutting Room Supervisor Relationship Specialty Start Date End Date Joan Huitron APRN-CNP [address] [place] [address] PCP - General 08/08/24 documented as of this encounter
--- OUTSIDE RECORDS SUMMARY | 2025-02-28 05:18 | XMS_ITS | Encounter Summary ---
Author Organization [facility] Address [address] [place] [address] Phone Care Team Providers Care Management Assistant Name Role Phone Joan Huitron Primary Care Provider [phone] Encounter Details Date Type Department Care Team (Late st Contact Info) Description 07/07/2024 Scanned Document [facility] [address] [place] [id number] Scanning, Generic Provider Social History Tobacco Use [...] Procedure Name Priority Date/Time Associated Diagnosis Comments OUTSIDE IMAGING SCAN 07/07/2024 documented in this encounter Results * OUTSIDE IMAGING SCAN (07/07/2024) Anatomical Region Laterality Modality Other Narrative 07/07/2024 Ordered by an unspecified provider. us Generic Provider Scanning OUTSIDE SCAN Final Result documented in this encounter Visit Diagnoses Not on filedocumented in this encounter Care Teams Management Assistant Relationship Specialty Start Date End Date Joan Huitron APRN-CNP [address] [place] [address] PCP - General 08/08/24 documented as of this encounter
[2025-02-28] MEDS: 0.9 % SODIUM CHLORIDE 500 ML IV (05:35)
[2025-02-28] MEDS: MORPHINE SULFATE 4 MG/ML VIAL IV (05:35)
[2025-02-28] MEDS: DIAZEPAM 5 MG TABLET PO (05:35)
[2025-02-28 05:48] LABS: Hematocrit 41.9 % (36.0-48.0); Hemoglobin 14.2 g/dL (12.0-16.0); Immature Granulocytes Abs Auto 0.02 10^3/uL (0.00-0.03); Immature Granulocytes Pct Auto 0.3 % (0.0-0.5); Lymphocytes Absolute Auto 2.8 10^3/uL (1.2-3.8); Mean Corpuscular HGB Conc 33.9 g/dL (29.9-35.2); Mean Corpuscular Hemoglobin 28.3 pg (26.7-34.0); Mean Corpuscular Volume 83.6 fL (81.0-99.0); Platelet Count 196 10^3/uL (150-450); Red Blood Count 5.01 10^6/uL (4.20-5.40); White Blood Count 7.1 10^3/uL (4.0-11.0)
[2025-02-28 06:07] LABS: Alanine Aminotransferase 25 U/L (14-59); Albumin Globulin Ratio 1.0; Albumin Level 3.9 g/dL (3.4-5.0); Alkaline Phosphatase 93 U/L (46-116); Anion Gap 16.5; Aspartate Amino Transferase 19 U/L (15-37); Blood Urea Nitrogen 14.0 mg/dL (7.0-18.0); Calcium 9.3 mg/dL (8.5-10.1); Carbon Dioxide 25.4 mmol/L (21.0-32.0); Chloride 101 mmol/L (98-107); Estimated GFR (African America >60 (>=60 mL/min/1.73m^2); Estimated GFR (Non-African Ame >60 (>=60 mL/min/1.73m^2); Globulin 4.1 g/dL; Glucose 107 mg/dL (74-106); Potassium 3.9 mmol/L (3.5-5.1); Sodium 139 mmol/L (136-145); Total Protein 8.0 g/dL (6.4-8.2)
[2025-02-28] MEDS: ASPIRIN 81 MG TAB.CHEW 324 MG PO (07:02)
--- NOTE | 2025-02-28 07:20 | XR_ITS ---
[address] [address] Patient Name: KEELY CHOPRA MRN: [id number] date: 1955 Sex: F Assigned Patient Location: ER Current Patient Location: Accession/Order Number: [id number] Exam Date: 02/28/2025 07:30 Report Date: 02/28/2025 08:10 At the request of: CAYLA KIM MD Procedure: XR chest 1V PORTABLE AP ERECT CHEST 0712 hours CLINICAL HISTORY: Chest pain and pressure and pain at the jaw COMPARISON: 02/18/2025 Evaluation is slightly limited by large body habitus. The heart is borderline enlarged. There is no vascular congestion. No developing consolidation is noted. There is no effusion or pneumothorax. The osseous structures are intact. XR/XR chest 1V IMPRESSION: BORDERLINE CARDIOMEGALY. NO ACUTE PULMONARY FINDINGS Impression dictated by: Marika [place] M.D. 02/28/2025 8:10 AM Dictation Location: [place] [address] Electronically authenticated by: [id number] Date: 02/28/2025 08:10
[2025-02-28 07:24] LABS: Glucose Urine UA NEGATIVE (NEGATIVE)
[2025-02-28 07:34] LABS: Cast Seen? NONE SEEN #/LPF (NONE SEEN); Crystals Seen? None Seen #/HPF (None Seen); Urine Culture Indicated NO
--- NOTE | 2025-02-28 08:17 | ED.GENADUL1 ---
HPI HPI - General Adult General Chief complaint: Chest Pain Stated complaint: JAW PAIN, CHEST PRESSURE Time Seen by Provider: 02/28/25 04:58 Source: patient Mode of arrival: walk-in Limitations: no limitations History of Present Illness HPI narrative: 69-year-old female presented to the emergency department and was initially seen by Dr. Crowley. Please see her full history and physical exam. Related Data Home Medications ?Medication ?Instructions ?Recorded ?Confirmed alprazolam 0.25 mg tablet 0.25 mg PO DAILY PRN anxiety 07/05/24 02/28/25 ropinirole 0.25 mg tablet 0.25 mg PO BEDTIME 07/05/24 02/28/25 sertraline 100 mg tablet 100 mg PO Q24H 07/05/24 02/28/25 Previous Rx's ?Medication ?Instructions ?Recorded diltiazem HCl 90 mg tablet 90 mg PO TID 20 days #60 tabs 02/18/25 Allergies Allergy/AdvReac Type Severity Reaction Status Date / Time No Known Drug Allergies Allergy Verified 02/28/25 05:03 Opioid HPI Opioid Management Most Recent Opioid Data: Last Pain Scale 0 Today, 07:05 Last ED Pain Assessment Today, 07:05 PFSH PFSH Social History Little interest or pleasure in doing things: not at all Feeling down, depressed, or hopeless: not at all Exam Constitutional Vital Signs, click to edit/add: Last Vital Signs Temp 97.9 F 02/28/25 04:53 Pulse 62 02/28/25 07:10 Resp 21 H 02/28/25 07:10 BP 176/67 H 02/28/25 07:01 Pulse Ox 99 02/28/25 07:10 O2 Del Method Room Air 02/28/25 04:53 Course Vital Signs Vital signs: Vital Signs Temperature 97.9 F 02/28/25 04:53 Pulse Rate 78 02/28/25 04:53 Respiratory Rate 17 02/28/25 04:53 Blood Pressure 132/84 02/28/25 04:53 Pulse Oximetry 99 02/28/25 04:53 Oxygen Delivery Method Room Air 02/28/25 04:53 Temperature 97.9 F 02/28/25 04:53 Pulse Rate 62 02/28/25 07:10 Respiratory Rate 21 H 02/28/25 07:10 Blood Pressure 176/67 H 02/28/25 07:01 Pulse Oximetry 99 02/28/25 07:10 Oxygen Delivery Method Room Air 02/28/25 04:53 Medical Decision Making MDM Narrative Medical decision making narrative: The patient's workup including 2 sets of troponin is negative and she is discharged home. She has had no dysrhythmias here. Treatment diagnosis and follow-up were discussed with the patient. Differential Diagnosis Differential Diagnosis: Cardiac dysrhythmia, STEMI, NSTEMI, chest wall pain Lab Data Lab results reviewed: Yes I reviewed the patient's lab results Labs: Lab Results 02/28/25 02/28/25 02/28/25 Range/Units 05:00 07:00 07:05 WBC 7.1 (4.0-11.0) 10^3/uL RBC 5.01 (4.20-5.40) 10^6/uL Hgb 14.2 (12.0-16.0) g/dL Hct 41.9 (36.0-48.0) % MCV 83.6 (81.0-99.0) fL MCH 28.3 (26.7-34.0) pg MCHC 33.9 (29.9-35.2) g/dL RDW 13.8 (11.0-15.0) % Plt Count 196 (150-450) 10^3/uL MPV 9.2 L (9.5-13.5) fL Neut % (Auto) 48.2 (43.0-75.0) % Lymph % (Auto) 39.2 (20.5-60.0) % [place] % (Auto) 8.8 (1.7-12.0) % Eos % (Auto) 3.1 (0.9-7.0) % Baso % (Auto) 0.4 (0.2-2.0) % Neut # (Auto) 3.4 (1.4-6.5) 10^3/uL Lymph # (Auto) 2.8 (1.2-3.8) 10^3/uL [place] # (Auto) 0.6 (0.3-0.8) 10^3/uL Eos # (Auto) 0.2 (0.0-0.7) 10^3/uL Baso # (Auto) 0.0 (0.0-0.1) 10^3/uL Abs Immat Gran (auto) 0.02 (0.00-0.03) 10^3/uL Imm/Tot Granulo (auto) 0.3 (0.0-0.5) % Sodium 139 (136-145) mmol/L Potassium 3.9 (3.5-5.1) mmol/L Chloride 101 (98-107) mmol/L Carbon Dioxide 25.4 (21.0-32.0) mmol/L Anion Gap 16.5 BUN 14.0 (7.0-18.0) mg/dL Creatinine 0.73 (0.55-1.02) mg/dL Est GFR ( Amer) >60 (>=60 mL/min/1.73m^2) Est GFR (Non-Af Amer) >60 (>=60 mL/min/1.73m^2) BUN/Creatinine Ratio 19.2 Glucose 107 H (74-106) mg/dL Calcium 9.3 (8.5-10.1) mg/dL Total Bilirubin 0.4 (0.2-1.0) mg/dL AST 19 (15-37) U/L ALT 25 (14-59) U/L Alkaline Phosphatase 93 (46-116) U/L Troponin I High Sens 6.1 6.5 (4.0-51.3) pg/mL Total Protein 8.0 (6.4-8.2) g/dL Albumin 3.9 (3.4-5.0) g/dL Globulin 4.1 g/dL Albumin/Globulin Ratio 1.0 Urine Color Lt. yellow (YELLOW) Urine Clarity Clear (CLEAR) Urine pH 7.0 (5.0-9.0) Ur Specific [place] 1.010 (1.005-1.025) Urine Protein Negative (NEG/TRACE) mg/dL Urine Glucose (UA) Negative (NEGATIVE) mg/dL Urine Ketones Negative (NEGATIVE) mg/dL Urine Occult Blood Negative (NEGATIVE) Urine Nitrite Negative (NEGATIVE) Urine Bilirubin Negative (NEGATIVE) Urine Urobilinogen 0.2 (0.2-1.0) EU/dL Ur Leukocyte Esterase Negative (NEGATIVE) Urine RBC None seen (0-2) #/HPF Urine WBC None seen (NONE SEEN) #/HPF Ur Squamous Epith Cells Rare (NONE/RARE) #/LPF Urine Crystals None seen (None Seen) #/HPF Urine Bacteria None seen (NONE SEEN) #/HPF Urine Casts None seen (NONE SEEN) #/LPF Urine Mucus None seen (NONE SEEN) Ur Culture Indicated? No Imaging Data Chest x-ray: Radiologist's impression: ITS Impressions Chest X-Ray 02/28/25 07:20 IMPRESSION: BORDERLINE CARDIOMEGALY. NO ACUTE PULMONARY FINDINGS Impression dictated by: Marika Reno M.D. 02/28/2025 8:10 AM Dictation Location: [place] [address] Electronically authenticated by: [id number] Y Date: 02/28/2025 08:10 Discharge Plan Discharge Chief Complaint: Chest Pain Clinical Impression: Atypical chest pain, Insomnia disorder Patient Disposition: Home, Self-Care Time of Disposition Decision: 08:16 Condition: Good Mode of Transportation: Private Vehicle Prescriptions / Home Meds: No Action diltiazem HCl 90 mg tablet 90 mg PO TID 20 Days Qty: 60 0RF alprazolam 0.25 mg tablet 0.25 mg PO DAILY PRN (Reason: anxiety) sertraline 100 mg tablet 100 mg PO Q24H ropinirole 0.25 mg tablet 0.25 mg PO BEDTIME Print Language: Malian Instructions: Chest Pain (ED) Referrals: LE SAUER [Primary Care Provider, ISOTOPE TECHNICIAN] - 1 week
== END 2025-02-28 08:33 | disposition home or self-care (01) ==
PROVIDERS: Emergency Medicine; Emergency Provider Emergency Medicine; PCP Nurse Practitioner
DX: R07.89 Other chest pain (principal); G47.00 Insomnia, unspecified; I48.92 Unspecified atrial flutter; Z79.899 Other long term (current) drug therapy; I47.10 Supraventricular tachycardia, unspecified
CPT/HCPCS: 36415; 71045; 80053; 81001; 84484; 85025; 93005; 96361; 96374; 96375; 99285; J2270; J2405

== ENCOUNTER 2025-04-17 09:18 | Outpatient (OUT) | payer MEDICARE, OTHER, SELFPAY ==
--- OUTSIDE RECORDS SUMMARY | 2025-04-06 06:49 | XMS_ITS | Continuity of Care Document ---
Author Organization [facility] Address [address] [place] [address] Phone Care Team Providers Care Applications Engineer Name Role Phone Jaden Carter MD Primary Care Provider Jaden Carter MD Attending Provider [phone] Care Teams Patient Care Team Team Status: Active Member Role/Relationship Status Dates Jaden Carter MD Primary Care Provider Active Patient Care Team Team Status: Inactive Member Role/Relationship Status Dates Jaden Carter MD Primary Care Provider Active S tart: April 06, 2025 End: April 06, 2025[facility] JANETT Carterttending ProviderActiveStart: April 06, 2025 End: April 06, 2025 Chief Complaint and Reason for Visit Chief Complaint Admit Date new patient April 06, 2025 10:35am Allergies, Adverse Reactions, Alerts Allergen Type Severity Reaction Last Updated Verified Status azithromycin Allergy Unknown Unknown Reaction Novemb er 2024 10:56am Yes Active Social History Smoking Status Status Start Date End Date Date of Observa tion Never smoked tobacco (finding) April 06, 2025 10:58am Observation Status Observation Response Date of Response Legal Sex Female (finding) [facility] 1955 Family History Relationship Condition Age at Onset Recorded Date/T gaurav Not Specified No pertinent family history Unknown motherDeceasedUnknownMalignant neoplasmUnknownHistory of ovarian cancerUnknown sonMalignant neoplasmUnknown Problems Active Problems Problem Diagnosis/Recorded Date Onset Date Status C omments A-fib July 06, 2024 12:13am Unknown Active brief A-fib, converted with diltiazem IVP Hypertension April 06, 2025 11:17am Unknown Active Inactive/Resolved Problems Problem Diagnosis/Recorded Date Onset Date Status C omments Heart palpitations July 07, 2024 10:40am Unknown Resolved NSTEMI (non-ST elevated myocardial infarction)July 06, 2024 12:13amUnknown Resolved Medications Medication Status Dose Units Route Directions Qty Days Refills S tart Date Stop Date End Date Reason(s) Instructions Adherence Ropinirole 0.25 mg tablet Active 0.25 MG PO .at be dtiwv July 06, 2024 12:00amComplies with drug therapysemaglutide (weight loss) Iiffnr0GNIXRKLT.weeklyFebruary 2024 12:00amComplies with drug therapy Metoprolol Tartrate 25 mg NtftznSezzhljatbet33.5MGPOTwice ggmvr756293Pqfjmfcf 2024 12:00amNove2024 10:57amApixaban (Eliquis) 5 mg tablet Ecohgiwtxaag4MYIVEjosw vprrg787940Serujfrs 2024 12:00amN2024 10:57amstart 07/08/2024 morningMetformin 500 mg nezmdxKobtwdkzzgxo673LENNOzwla November 30, 2022 11:00pmFebruary 2024 12:10amSertraline 100 mg TabletActive 50MGPODailyJuly 2022 11:00pmComplies with drug therapyBisoprolol- Hydrochlorothiazide 5-6.25 mg utzphpJppledxxolhk0RDCLINievuGxtk 2022 11:00pmFebruary 2024 3:52pmNabumetone 500 mg UqffktYlmpxcklcnao820PXSO Twice daily as needed for as directedJuly 2022 11:00pmNovember 2024 10:57amMetoprolol Tartrate 25 mg mzmlcdSghrfokiciqg17.5MGPOTwice July 07, 2024 12:00[facility]2024 10:57amDiltiazem Hcl 90 mg tablet Xrhkii57XAOOBjqgm times dailyApril 06, 2025 12:00amComplies with drug therapyTrazodone 50 mg rakdbeOwgkyd21WPVRMiqxu at zhnbtzk237PjbvvsheApril 06, 2025 12:00amComplies with drug therapy Vital Signs Vital Reading Result Reference Range Collection Date/Time Height 62 [in_i] April 06, 2025 10:16foBixezy754.56 kgApril 06, 2025 10:56amBody Kztxessiwbp31.5 [degF]97.6-99.0April 06, 2025 10:56amHeart Rate77 /min 60-100April 06, 2025 10:56amRespiratory rate20 /sfx40-45YzbbfsddApril 06, 2025 10:56amOxygen saturation by Pulse hwolxifr98 %95-100April 06, 2025 10:56am BP Wlaxffhy295 mm[Hg]100-140April 06, 2025 10:56amBP Ouqhlipdp98 mm[Hg] 60-100April 06, 2025 10:56amBMI (Body Mass Index)49.0 kg/l0MfcjmpqwApril 06, 2025 10:56am Advance Directives Advance Directive Response Recorded Date/ Time Advance Directives No November 27 7:53am Insurance Providers Guarantor Mandy Bragg Address [address] [place] [id number] Info.Home Phone: Coverage Status Update:2025 Payer Group Member ID Coverage Type Subscriber Relationship to Subscriber Effective Date Expiration Date Medicare [id number] J Kovalaske Id: [id number] [address] [place] [id number] Home Phone: Email: [email or web address] Insurance [address] [facility] [address] Work Phone: Retired Id: [id number] J Kovalaske Id: [id number] [address] [place] [address] Home Phone: Email: [email or web address] [facility] [address] [address] [place] [address] Work Phone: [phone] J Kovalaske Id: [id number] [address] [address] Home Phone: Email: [email or web address] Encounter Location(s) Arrival/Admit Date Discharge/Departure Date Discharge/Departure Disposition Provider(s) Departed Physician/ Provider Office Visit -[facility] April 06, 2025 10:35am April 06, 2025 11:48am Discharged to home care or self care (routine discharge) Jaden Carter MD
--- OUTSIDE RECORDS SUMMARY | 2025-04-17 09:23 | XMS_ITS | Clinical Summary ---
Author Organization [facility] Address [address] [place] [address] Phone Care Team Providers Care Dog Raiser Name Role Phone Joan Huitron SUPPORT SERVICES COORDINATOR-HOME HEALTH CAREGIVER Primary Care Provider [phone] Allergies No known active allergies Medications MedicationSigDispense QuantityRefillsLast FilledStart DateEnd DateStatus ALPRAZolam (Xanax) 0.25 mg tablet Take 1 tablet (0.25 mg) by mouth as needed at bedtime for anxiety.07/15/2024 Active semaglutide, weight loss, 1 mg/0.5 mL pen injector Inject 1.2 mg under the skin 1 (one) time per week.06/01/2023ctive rOPINIRole (Requip) 0.25 mg tablet Take 1 tablet (0.25 mg) by mouth once daily at bedtime.Active Eliquis 5 mg tablet Take 1 tablet (5 mg) by mouth 2 times a day.Active sertraline (Zoloft) 100 mg tablet Take 1 tablet (100 mg) by mouth once daily.Active flecainide (Tambocor) 50 mg tablet Indications:Paroxysmal atrial fibrillation (Multi)Take 1 tablet (50 mg) by mouth 2 times a day. 180 tablet ctive Active Problems ProblemNoted DateDiagnosed DateParoxysmal atrial ymnowzbjrtfn98/24/2025 Myocardial infarction type 9371Xyahurtvzyzqiq91/24/2025ody mass index (BMI) of 45.0 to 49.9 in adult08/08/20242112Bhwfclvlstkc92/24/2025Never smoked trrritc1208/08/2024 Immunizations ImmunizationAdministration DatesNext DueFlu vaccine, quadrivalent, high-dose, preservative free, age 65y+ (FLUZONE)02/25/2022Flu vaccine, trivalent, preservative free, HIGH-DOSE, age 65y+ (Fluzone)03/25/2024Influenza, Seasonal, Quadrivalent, Tjdmkokvdx76/15/2023,05/20/2021,03/14/2020Influenza, Unspecified 04/01/2023Influenza, seasonal, /08/2024Influenza, trivalent, hicnjxvjiq35/14/2020Pneumococcal conjugate vaccine, 13-valent (PREVNAR 13) 03/14/2020RSV, 60 Years And Older (AREXVY)04/26/2023Zoster vaccine, recombinant, adult (SHINGRIX)06/23/2019,03/28/2019 Family History Medical HistoryRelationNameCommentsNo Known ProblemsBrotherNo Known Problems FatherOvarian cancerMotherNo Known ProblemsSisterRelationNameStatusComments BrotherFatherDeceasedMotherSister Social History Tobacco UseTypesPacks/DayYears UsedDateSmoking Tobacco: NeverSmokeless Tobacco: Never Tobacco Cessation:Counseling Given: Not Answered Alcohol UseStandard Drinks/WeekCommentsNever0 (1 standard drink = 0.6 oz pure alcohol)CommentsUnknownSex and Gender InformationValueDate RecordedSex Assigned at BirthNot on fileLegal DybWjhnox24/19/2025 8:57 AM ESTGender Identity Not on fileSexual OrientationNot on file Last Filed Vital Signs Vital SignReadingTime TakenCommentsBlood Bbxgzyqg781/8804 9:04 AM EDT Ecvkr950408/22/2024 9:04 AM EDTTemperature--Respiratory Rate--Oxygen Saturation-- Inhaled Oxygen Concentration--Cqfeue850 kg (263 lb 3.2 oz)08/22/2024 9:04 AM EDT Vbdbax316.5 cm (5' 2 )08/22/2024 9:04 AM EDTBody Mass Index48.14008/22/2024 9:04 AM EDT Plan of Treatment Health MaintenanceDue DateLast DoneCommentsCT Fnntbhfpphzw82/18/1956FIT-DNA (Cologuard)1955FIT1955Lipid Panel1955Medicare Annual Wellness Visit (AWV)1955Wyzyrvopxykej62/18/1956MMR Vaccines (1 of 1 - Standard series)1954Diabetes Qtwdscrwu00/18/1972Hepatitis C Ohscsfsgd89/18/1972 DTaP/Tdap/Td Vaccines (1 - Tdap)08/03/19755523Nefvftecb28/18/1994Bone Density Scan 2018Pneumococcal Vaccine (2 of 2 - PPSV23, PCV20, or PCV21)05/09/2020 03/14/20203008Qqqtnhstceu14Colorectal Cancer Fjtjyycoh90/01/2024 Influenza Vaccine (#1)511/12/2023, 02/23/2024, 04/01/2023, Additional history existsCOVID-19 Vaccine ( season), 04/01/2023, 02/25/2022, Additional history existsZoster VaccinesCompleted 06/23/2019, 03/28/2019RSV High Risk: (Elderly (60+) or Population) Xosnnnbgt98/10/2023HIB VaccinesAged OutNo longer eligible based on patient's age to complete this topicHPV VaccinesAged OutNo longer eligible based on patient's age to complete this topicHepatitis A VaccinesAged OutNo longer eligible based on patient's age to complete this topicHepatitis B VaccinesAged OutNo longer eligible based on patient's age to complete this topicIPV VaccinesAged OutNo longer eligible based on patient's age to complete this topicMeningococcal VaccineAged OutNo longer eligible based on patient's age to complete this topic Rotavirus VaccinesAged OutNo longer eligible based on patient's age to complete this topic Insurance * Guarantor: Mary Lou Bragg TypeRelation to PatientDate of BirthPhone Billing Address[facility]/JciuhbWpho[address] [place] [phone] * Guarantor: Mary Lou Bragg TypeRelation to PatientDate of BirthPhone Billing Address[facility]/SsweqaIuky[address] [place] [address] Care Teams Team MemberRelationshipSpecialtyStart DateEnd Date Joan Huitron, SUPPORT SERVICES COORDINATOR-HOME HEALTH CAREGIVER [address] [place] [address] PCP - General08/08/24
--- OUTSIDE RECORDS SUMMARY | 2025-04-17 09:23 | XMS_ITS | Clinical Summary ---
Author Organization [facility] Address [address] [place] [address], [address] [place] [address] Care Team Providers Care Car Audio Installer Name Role Phone Unavailable Primary Care Provider Unavailabl e Social History Tobacco UseTypesPacks/DayYears UsedDateSmoking Tobacco: Never Assessed CommentsUnknownSex and Gender InformationValueDate RecordedSex Assigned at Not on fileLegal XguYfgefi95/10/2013 2:48 PM ESTGender IdentityNot on fileSexual OrientationNot on file Plan of Treatment Not on file
--- OUTSIDE RECORDS SUMMARY | 2025-04-17 09:23 | XMS_ITS | Clinical Summary ---
Author Organization [facility] Address [address] [facility] [place] [address] Care Team Providers Care Advertising Coordinator Name Role Phone Unavailable Primary Care Provider Unavailabl e Allergies Active AllergyReactionsCriticalityNoted ArvbFkhsduliLuelemyyzlmkJuejrc89/29/2024 Other Reaction(s): Unknown Medications MedicationSigDispense QuantityRefillsLast FilledStart DateEnd DateStatus benzonatate (Tessalon) 200 MG capsule Take 200 mg by mouth in the morning and 200 mg in the evening and 200 mg before bedtime.05/14/2023ctive bisoprolol-hydroCHLOROthiazide (Ziac) 5-6.25 MG tablet Take 1 tablet by mouth in the morning.Active DESONIDE EX See Instructions, Refill(s) 0, 0.05% topical cream Apply small amount 3 times a day as dseozq4407/22/2022ctive metFORMIN (Glucophage) 500 MG tablet Take 500 mg by mouth in the morning.Active rOPINIRole (Requip) 0.25 MG tablet Take 0.25 mg by mouth12/18/2022ctive Ozempic, 0.25 or 0.5 MG/DOSE, 2 MG/1.5ML solution pen-injector inject 0.25 milligrams subcutaneously every week07/10/2022ctive Semaglutide-Weight Management 1 MG/0.5ML solution auto-injector Inject 1.2 mg under the skin06/01/2023ctive sertraline (Zoloft) 100 MG tablet Take 100 mg by mouth12/01/2022ctive fluocinonide (Lidex) 0.05 % cream Indications:Other atopic dermatitisApply to affected areas, up to twice a day when flared, do not use one the face, groin, or underarms, 30 day supply 60 g ctive Active Problems No known active problems Family History Medical HistoryRelationNameCommentsCancerMotherHypertensionMotherRelationName StatusCommentsFatherAliveMotherDeceased Social History Tobacco UseTypesPacks/DayYears UsedDateSmoking Tobacco: Never Tobacco Cessation:Counseling Given: Not Answered Alcohol UseStandard Drinks/WeekCommentsNever0 (1 standard drink = 0.6 oz pure alcohol)caffeine: 1-2 cups per dayCommentsUnknownSex and Gender InformationValueDate RecordedSex Assigned at BirthNot on fileLegal SexFemale 07/30/2022 7:04 PM EDTGender IdentityNot on fileSexual OrientationNot on file Last Filed Vital Signs Vital SignReadingTime TakenCommentsBlood Pressure--Pulse--Temperature-- Respiratory Rate--Oxygen Saturation--Inhaled Oxygen Concentration--Aibbfv233 kg (297 lb)05/27/2018 12:00 PM SRLJnpeqd229.4 cm (5')05/27/2018 12:00 PM ESTBody Mass Oserc703805/27/2018 12:00 PM EST Plan of Treatment Not on file Insurance * Guarantor: Mandy Bragg TypeRelation to PatientDate of PhoneBilling AddressPersonal/CvrjuzXqdu02/18/1956 [facility] [address]
--- OUTSIDE RECORDS SUMMARY | 2025-04-17 09:36 | XMS_ITS | CCD ---
Author Organization [facility] Inform ion Partnership [employer] [facility] [employer] Care Team Providers Care Surveyor'S Assistant Name Role Phone MEL, DR JOY Benton Consulting Unavailable MEL, DR JOY Benton Attending Unavailable MEL, DR JOY Benton Admitting Unavailable MEL, DR JOY Benton Primary Care Unavailable FURMAN, DR YOSSI Pineda Consulting Unavailable MEL, DR JOY Benton Primary Care Unavailable LEAL, DR JOY Benton Consulting Unavailable MLE, DR JOY Benton Attending Unavailable MEL, DR JOY Benton Admitting Unavailable Unavailable Primary Care Provider UnavailALECIA Syed Attending Unavailable ALECIA ORTEZ Attending Unavailable ALECIA ORTEZ Attending Unavailable ALECIA ORTEZ Attending Unavailable Cristiane ASSISTED SALES REPRESENTATIVE-CLe Primary Care Provider [phone] Mahendra Garcia MD Admit Provider Christina Julien MD Attending Provider Rigoberto Coker DO Emergency Provider UnaLe Solis Primary Care Unavailable Rigoberto Coker Admitting Unavailable Rigoberto Coker Attending Unavailable Jayashree Chavarria Consulting Unavailable Christina Julien Attending Unavailable Mahendra Garcia Admitting Unavailable Le Huitron Primary Care Unavailable Disha Harp Consulting Unavailable Jose Grant Consulting Unavailable Wilson Sales Consulting Unavail able Troy aWshington Consulting Unavailable Mynor Crain Consulting Unavailab Leah Garcia Consulting Unavailable Ivon Cueto Consulting Unavailable Shereen Owens Consulting Unavailab Camryn Paredes Consulting Unavailable Anya Gonzalez Consulting Unavailable Cristiane YEH-Le PRESCOTT Primary Care Provider Le Huitron CNPn Primary Care Provider TROY WASHINGTON Attending Unavailable CRISTIANE, LE Odonnell Primary Care Unavailable TROY WASHINGTON Referring Unavailable CRISTIANE, LE Odonnell Primary Care Unavailable Cristiane, Le Odonnell Attending Unavailable Cristiane, Le Odonnell Admitting Unavailable Cristiane, Le Odonnell Attending Unavailable Cristiane, Le Odonnell Attending Unavailable Cristiane, Le Odonnell Attending Unavailable Cristiane, Le Odonnell Attending Unavailable Cristiane, Le Odonnell Attending Unavailable Cristiane, Le Odonnell Attending Unavailable Cristiane, Le Odonnell Attending Unavailable Cristiane, Le Odonnell Attending Unavailable Cristiane, Le Odonnell Attending Unavailable Fu Juan [place] Unavailable JUAN DOMINGO Attending Unavailable CRISTIANE, LE PIKE Primary Care Unavailable CRISTIANE, LE PIKE Admitting Unavailable JUAN DOMINGO Attending Unavailable CRISTIANE, LE PIKE Referring Unavailable CRISTIANE, LE PIKE Primary Care Unavailable CRISTIANE, LE PIKE Primary Care Unavailable JUAN DOMINGO Attending Unavailable JUAN DOMINGO Admitting Unavailable Cristiane, Le Odonnell Attending Unavailable Cristiane, Le Odonnell Attending Unavailable Cristiane, eL Odonnell Attending Unavailable LATASHAGISSELLE Attending Unavailable Cristiane, Le Odonnell Attending Unavailable Cristiane, Le Odonnell Admitting Unavailable Allergies Allergy ClassificationReported Allergen(s)Allergy TypeDate of OnsetReaction(s) Facility (3 sources)Azithromycin; Translations: [Zithromax]Drug Ocyjgvy20-37-4010Zks [facility] Repository (12 sources)Azithromycin; Translations: [AZITHROMYCIN]Drug [id number] [facility] Work Phone: Medications Current Medications MedicationDrug Class(es)DatesSig (Normalized)Sig (Original)ALPRAZolam 0.25 mg oral tablet (6 sources)BenzodiazepineStart: 48-41-6033vtsx 1 tablet by mouth once daily as neededALPRAZolam (XANAX) 0.25 MG tablet Take 1 (one) tablet (0.25 mg total) by mouth nightly as needed . 09/07/2023 Activeapixaban 5 mg oral tablet (5 sources)Factor Xa InhibitorStart: 07-06-2024 End: 29-73-5099mvjm 1 tablet by mouth twice dailyApixaban (Eliquis) 5 mg tablet Active 5 MG PO Twice daily 60 July 06, 2024 12:00am start 07/08/2024 morningbenzonatate 200 mg oral capsule (6 sources)Non-narcotic AntitussiveStart: 53-88-1818wpim 1 capsule by mouth in the morning, then take 1 capsule by mouth in the evening, then take 1 capsule by mouth at bedtimebenzonatate (Tessalon) 200 MG capsule Take 200 mg by mouth in the morning and 200 mg in the eveningand 200 mg before bedtime. 05/14/2023 Activecephalexin 500 mg oral capsule (2 sources)Cephalosporin AntibacterialStart: 01-25-2024 End: 61-84-1356liko 1 capsule by mouth in the morningcephalexin (Keflex) 500 MG capsule Indications: Rash and other nonspecific skin eruption Take 1 capsule (500 mg) by mouth in the morning and 1 capsule (500 mg) before bedtime. Do all this for 10 days. 20 capsule 01/25/2024 02/04/2024 Activeclotrimazole 10 mg oral lozenge (2 sources)Azole AntifungalStart: 02-24-2024 End: 84-12-2205fuir 1 tablet by mouth three times dailyclotrimazole (Mycelex) 10 mg juanita Use 1 tablet (10 mg) in the mouth or throat 3 times a day. 02/24/2024 08/22/2024 Discontinued (Therapy completed)desonide 0.5 mg/ml topical cream (13 sources)CorticosteroidStart: 01-25-2024 End: 86-77-9168tkrcckzh (DesOwen) 0.05 % cream Apply topically 2 times a day. 01/25/2024 01/24/2025 ActiveStart: 31-30-4304DTRDSYLH EX See Instructions, Refill(s) 0, 0.05% topical cream Apply small amount 3 times a day as needed 07/22/2022 ActivedilTIAZem hydrochloride 60 mg oral tablet (5 sources)Calcium Channel BlockerStart: 09-11-1865ewrr 1 tablet by mouth three times dailydiltiazem (CARDIZEM) 60 MG tablet Take 1 (one) tablet (60 mg total) by mouth 3 (three) times a day . 270 tablet 1 09/29/2024 ActiveStart: 09-23-2024 End: 60-19-6402axkz 1 capsule by mouth once dailydiltiazem (Cardizem CD) 180 MG 24 hr capsule Take 1 (one) capsule (180 mg total) by mouth daily . 30 capsule 11 09/23/2024 09/29/2024 Discontinued (Prescriber Discontinued)flecainide acetate 50 mg oral tablet (3 sources)AntiarrhythmicStart: 08-08-2024 End: 94-22-9067kncn 1 tablet by mouth twice dailyflecainide (TAMBOCOR) 50 MG tablet Take 1 (one) tablet (50 mg total) by mouth 2 (two) times a day . 08/08/2024 09/23/2024 Discontinuedfluocinonide 0.5 mg/ml topical solution (11 sources)CorticosteroidStart: 01-25-2024 End: 33-90-9318ftrqnbmzhkce (Lidex) 0.05 % external solution Indications: Psoriasis vulgaris (CMS/HCC) Apply topically 2 (two) times a day as needed for rash (to scalp) 60 mL 01/25/2024 01/24/2025 ActiveStart: 06-15-2023 fluocinonide (Lidex) 0.05 % cream Indications: Other atopic dermatitis Apply to affected areas, up to twice a day when flared, do not use one the face, groin, or underarms, 30 day supply 60 g 11 06/15/2023 Activemetoprolol tartrate 25 mg oral tablet (4 sources)beta-Adrenergic BlockerStart: 08-03-2024 End: 52-59-7142ypgt 0.5 tablet by mouth twice dailymetoprolol tartrate (Lopressor) 25 mg tablet Take 0.5 tablets (12.5 mg) by mouth 2 times a day. 07/1608/08/2024 Discontinued (Therapy completed)Start: 17-81-8409Rbtqykgkre Tartrate 25 mg tablet Active 12.5 MG PO Twice daily 5 July 07, 2024 12:00amnabumetone 500 mg oral tablet (2 sources)Nonsteroidal Anti-inflammatory DrugStart: 46-21-9935bhax 1 tablet by mouth twice daily as neededNabumetone 500 mg Tablet Active 500 MG PO Twice daily as needed for as directed November 30, 2022 11:00pmondansetron 4 mg disintegrating oral tablet (2 sources)Serotonin-3 Receptor AntagonistStart: 07-18-2024 End: 45-36-2406bqbp 1 tablet by mouth every eight hours as neededondansetron ODT (Zofran-ODT) 4 mg disintegrating tablet Dissolve 1 tablet (4 mg) in the mouth every8 hours if needed. 07/18/2024 08/22/2024 Discontinued (Therapy completed) rOPINIRole 0.25 mg oral tablet (14 sources)Nonergot Dopamine AgonistStart: 87-62-1221cpzd 1 tablet by mouth at bedtimeRopinirole 0.25 mg tablet Active 0.25 MG PO .at bedtime July 06, 2024 12:00am0.25 mg, 0.5 mg dose 1.5 ml semaglutide 1.34 mg/ml pen injector (6 sources)Start: 07-50-2574qmyuof 0.25 mg by subcutaneous injection every week Ozempic, 0.25 or 0.5 MG/DOSE, 2 MG/1.5ML solution pen-injector inject 0.25 milligrams subcutaneously every week 07/10/2022 Activesemaglutide (weight loss) (2 sources)Start: 03-91-2372mdzicx 1 mg by subcutaneous injection every week semaglutide (weight loss) Active 1 MG SUBCUT .weekly July 06, 2024 12:00am Start: 70-92-2545htetlhyzqvx (weight loss) Active SUBCUT July 06, 2024 12:00amsemaglutide, weight loss, 1 mg/0.5 mL pen injector (2 sources)Start: 89-69-7690vhumdw 1.2 mg by subcutaneous injection every week semaglutide, weight loss, 1 mg/0.5 mL pen injector Inject 1.2 mg under the skin 1 (one) time per week. 06/01/2023 ActiveSemaglutide-Weight Management 1 MG/0.5ML solution auto-injector (6 sources)Start: 49-33-5777Jtlxxfelosy-Weight Management 1 MG/0.5ML solution auto-injector Inject 1.2 mg under the skin 06/01/2023 Activesertraline 100 mg oral tablet (14 sources)Serotonin Reuptake InhibitorStart: 42-16-8809brzy 1 tablet by mouth once dailysertraline (ZOLOFT) 100 MG tablet Take 1 (one) tablet (100 mg total) by mouth daily . 12/01/2022 ActiveStart: 23-17-3627Euafizlppn 100 mg Tablet Active 50 MG PO Daily November 30, 2022 11:00pm Completed/Discontinued Medications MedicationDrug Class(es)DatesSig (Normalized)Sig (Original)bisoprolol fumarate 5 mg / hydroCHLOROthiazide 6.25 mg oral tablet (8 sources)Thiazide Diuretic, beta-Adrenergic BlockerStart: 12-01-2022 End: 53-09-1460ogod 1 tablet by mouth once dailyBisoprolol-Hydrochlorothiazide 5-6.25 mg tablet Discontinued 1 TAB PO Daily November 30, 2022 11:00pmFe2024 3:52pmtake 1 tablet by mouth in the morningbisoprolol- hydroCHLOROthiazide (Ziac) 5-6.25 MG tablet Take 1 tablet by mouth in the morning. ActivemetFORMIN hydrochloride 500 mg oral tablet (8 sources)BiguanideStart: 12-01-2022 End: 33-16-6491lxmw 1 tablet by mouth once dailyMetformin 500 mg tablet Discontinued 500 MG PO Daily November 30, 2022 11:00pm July 06, 2024 12:10am Problems Active Problems Problem ClassificationProblemDateDocumented DateEpisodic/ChronicAcute myocardial infarction (16 sources)Myocardial infarction; Translations: [Non-ST elevation (NSTEMI) myocardial infarction]Onset: 565031-14-2033QvjcbgkKyubwel dysrhythmias (20 sources)Atrial fibrillation; Translations: [Unspecified atrial fibrillation] Onset: 081167-35-9109NjjmxdvDsuwbds on above:brief A-fib, converted with diltiazem IVPCardiac dysrhythmias (3 sources)Palpitations; Translations: [Palpitations]Onset: 383576-21-3112 EpisodicDisorders of lipid metabolism (5 sources)Pure hypercholesterolemia, unspecified; Translations: [PURE HYPERCHOLESTEROLEMIA UNSPEC]Onset: 60-38-4372ChhmetoYnrnokhmo hypertension (6 sources)Essential (primary) hypertension; Translations: [Hypertensive disorder]Onset: 794274-77-3254JhudgejFsldzpgcjhf chest pain (1 source)Chest pain, unspecified; Translations: [Chest pain, unspecified]Onset: 04-23-7626ZmfjqcerZdhne aftercare (2 sources)Drug 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; Translations: [FCI (current) use of anticoagulants]Onset: 287705-48-5608VxebithoOvefs circulatory disease (2 sources)Elevated blood-pressure reading without diagnosis of hypertension; Translations: [Elevated blood-pressure reading, without diagnosis of hypertension]Onset: 067425-73-9401IappiawzWhxuk circulatory disease (2 sources)Elevated blood-pressure reading, without diagnosis of hypertension; Translations: [Elevated blood-pressure reading, without diagnosis of hypertension]Onset: 73-25-7562TnjnxxuvPltkw inflammatory condition of skin (4 sources)Psoriasis vulgaris; Translations: [Psoriasis vulgaris]03-21-2024 ChronicOther nutritional; endocrine; and metabolic disorders (2 sources)Body mass index 40+ - severely obese; Translations: [Body mass index (BMI) 45.0-49.9, adult]Onset: 141909-59-4941MkohysfCahqg screening for suspected conditions (not mental disorders or infectious disease) (1 source)Encounter for screening mammogram for malignant neoplasm of breast; Translations: [ENC SCR MAMMO MALIG NEOPLASM BREAST]Onset: 59-62-0239Bmuulzgb Other skin disorders (4 sources)Eruption; Translations: [Rash and other nonspecific skin eruption] 55-56-1805XddmxwqkZjkrylys codes; unclassified (1 source)Family history of malignant neoplasm of breast; Translations: [FAMILY HX MALIG NEOPLASM OF BREAST]Onset: 06-05-9218IkwdywolTaodqhto codes; unclassified (1 source)Family history of malignant neoplasm of other organs or systems; Translations: [FAM HX MALIG NEOPLASM OTH ORGN/SYS]Onset: 70-57-5585Fokuazot Residual codes; unclassified (2 sources)Never smoked tobacco; Translations: [Other specified health status] Onset: 71-10-410947186719-07-1717QqstgrewEvgrstdbgoyw (2 sources)Other supraventricular tachycardia; Translations: [Other supraventricular tachycardia]Onset: 03-20-2025 Past or Other Problems Problem ClassificationProblemDateDocumented DateEpisodic/ChronicMalaise and fatigue (4 sources)Other fatigue; Translations: [OTHER FATIGUE]Onset: 93-31-2650Oexrwvcz Neoplasms of unspecified nature or uncertain behavior (2 sources)Neoplastic disease; Translations: [Neoplasm of unspecified behavior of bone, soft tissue, and skin]85-98-9525RkkgvdjuQbneh and unspecified benign neoplasm (2 sources)Melanocytic nevus of trunk; Translations: [Melanocytic nevi of trunk] 65-96-7758SlufxbsiPphqi skin disorders (2 sources)Seborrheic keratosis; Translations: [Other seborrheic keratosis] 62-75-6545FgqilukoSpyki skin disorders (2 sources)Lentiginosis; Translations: [Other melanin hyperpigmentation] 72-23-4744NninjsgoUtnmz skin disorders (2 sources)Inflamed seborrheic keratosis; Translations: [Inflamed seborrheic keratosis]64-27-0452CmrmdevpYgoctqlcavzt (2 sources)Onset: 909543-35-3067Ksrpmulelgzy (2 sources)Other supraventricular tachycardia; Translations: [Other supraventricular tachycardia]Onset: 03-20-2025 Results Test NameValueInterpretationReference RangeFacilityECG 12 Leadon 38-50-3488Opjsf Rhythm WITHIN NORMAL LIMITSOhioHealthOhioHealthECG 12-LEADon 41-94-1125EWJ 12-LEADSinus Rhythm WITHIN NORMAL LIMITSNormalOhio Health AmbulatoryAmbulatory Visit Summaryon 69-42-4168Sannpmzjzb Visit SummaryAmbulatory Visit Summary KEELY BRAGG :1955 Visit Date:02/22/2025 Ambulatory Visit Instructions Your Diagnosis SVT (supraventricular tachycardia) Morbid obesity with BMI of 50.0-59.9, adult Nonsmoker Body mass index [BMI] 50.0-59.9, adult Your Care Team Attending Physician - LATASHA PENS AND PENCILS REPAIRER, GISSELLE A Primary Care Physician - Le Montano This [...] 8:20 AM EST With: Le Montano Where: [place] [id number]- Medications What How Much When Instructions Unchanged [...] signed up for this yet, please contact [employer] at [phone] to get signed up today. Language Information Language assistance services are available as needed. [facility] Medicine Office/Clinic Noteon 50-98-7755Apftbc Medicine Office/Clinic NoteS[facility]ul[facility]/Clinic Note Chief Complaint ER Follow up The patient presents with concerns about a recent episode of a racing heart and jaw pressure. HPI Staff Pt presents today for ER follow up ER followup: Hospital: [facility] Visit date: 02/18/25 Symptoms the patient presented with: tachycardia Current concerns: Diltiazem increased to 90mg TID. Does not have enough to last her until she sees on air talent. Has been having trouble sleeping. History of Present Illness 69-year-old female patietn of Justus Huitron CNP presenting with follow-up care after an emergency roomvisit for a racing heart and jaw pressure. [...] concerns, as the adverse effects listed are notguaranteed to occur. Review of Systems PHQ Score [...] Reviewed discharge summary and testing completed @ [facility] Encouraged to keep appointment with on air talent as scheduled Cardizem 90 mg one po [...] medical support in addressing this problem. Your BMIand weight management will be followed at subsequent visits. 3. Nonsmoker (Z78.9: Other specified health status) - COVID and flu vaccinations deemed safe despite recent cardiac episode. 4. Body mass index [BMI] 50.0-59.9, adult (Z68.43: Body mass index [BMI] 50.0- 59.9, adult) BMI 51.01 Orders: diltiazem, 90 mg = 1 tab(s), Oral, TID, TAKE 1 TABLET BY MOUTH THREE TIMES DAILY for 20 days, # 90 tab(s), Refills(s) 0, Pharmacy: [id number], 153, cm, 02/22/25 8:19:00 EDT, Height/Length Dosing, 119.4, kg, 02/22/25 8:19:00 EDT, Weight Dosing Follow-up No qualifying data available Patient Education Supraventricular Tachycardia, Adult, Tsmd-sv-Ujco Problem List/Past Medical History Ongoing Adult BMI [...] Stroke: Grandparent. Immunizations Vacci (more content not included)...[facility] SystemComment on above:Result Comment: Electronically Signed By: GISSELLE PAGAN CNP\.sandra\Date and Time Signed: 02/22/25 08:55 EDTReminderson 09-70-0012GpvspjwngLqmudocur From: Le Montano To: [facility] - Clinical; [...] 25.4 % (14.0 - 50.0) 01/02/2025 8:56 [place] Auto 7.7 % (4.0 - 14.0) 01/02/2025 8:56 Eos Auto 2.2 % (0.0 - 8.0) 01/02/2025 8:56 Basophil Auto 0.5 % (0.0 - 2.0) 01/02/2025 8:56 Neutro Absolute 3.2 E9/L (2.0 - 7.5) 01/02/2025 8:56 Lymph Absolute 1.3 E9/L (1.0 - 4.0) 01/02/2025 8:56 [place] Absolute 0.4 E9/L (0.2 - 1.0) 01/02/2025 [...] below message Patient returns call and verbalizes understanding.[facility] SystemAmbulatory Visit Summaryon 33-79-7687Iwikbhuvaz Visit SummaryAmbulatory Visit Summary KEELY BRAGG :1955 Visit Date:01/02/2025 Ambulatory Visit Instructions Your [...] 8:20 AM EST With: Le Montano Where: [place] [id number]- Medications What How Much When Instructions Unchanged [...] signed up for this yet, please contact [place] at [phone] to get signed up today. Language Information Language assistance services are available as needed. NormalGood Samaritan HospitalCBC w/ Auto Diffon 01-02-2025 Basophil Absolute0.0 E9/LNormal0.0-0.2[facility] CenterComment on above:Performed By: #### [id number] #### [facility] [address], [place] [address]Xsykjvpry/100 WBC (Bld)0.5 %Normal0.0-2.0[facility] Samaritan HospitalComment on above:Performed By: #### [id number] #### [facility] [address], [place] [address]Ggi Absolute0.1 E9/LNormal0.0-0.5[facility] Comment on above:Performed By: #### [id number] #### [facility] [address], [place] [address]Diobbgosghh/100 WBC (Bld)2.2 %Normal0.0-8.0[facility]itan HospitalComment on above:Performed By: #### [id number] #### [facility] [address], [place] [address]Ubwjqcgdlcn distribution width (RBC) [Ratio]14.6 %High10.9-14.2 [facility]aritan HospitalComment on above:Performed By: #### [id number] #### [facility] [address] [place] [address] 18873Yqjcxecnpn (Bld) [Volume fraction]41.0 %Dsonnf18.0-46.0[facility]aritan HospitalComment on above:Performed By: #### [id number] #### [facility] [address] [place] [address]Rhbpzfpmzt (Bld) [Mass/Vol]13.9 g/xMVwbdup48.0-16.0[facility]itan HospitalComment on above:Performed By: #### [id number] #### [facility] [address] [place] [address]2Ctpks Absolute1.3 E9/LNormal1.0-4.0[facility] Comment on above:Performed By: #### [id number] #### [facility] [address] [place] [address]Mjrshhjxicw/100 WBC (Bld)25.4 %Koijew45.0-50.0[facility] Samaritan HospitalComment on above:Performed By: #### [id number] #### [facility] [address] [place] [address]GEH (RBC) [Entitic mass]28.0 maSrpvxh43.0-34.0[facility]itan HospitalComment on above:Performed By: #### [id number] #### [facility] [address] [place] [address]OVRF (RBC) [Mass/Vol]33.9 g/lHHffehl63.4-36.0[facility] HospitalComment on above:Performed By: #### [id number] #### [facility] [address] [place] [address] 29135DTA (RBC) [Entitic vol]82.6 dUSyowre35.0-100.0[facility] HospitalComment on above:Performed By: #### [id number] #### [facility] [address], [place] [address]Tozz Absolute0.4 E9/LNormal0.2-1.0[facility] Comment on above:Performed By: #### [id number] #### [facility] [address], [place] [address]Vspzujrgt/100 WBC (Bld)7.7 %Normal4.0-14.0[facility] HospitalComment on above:Performed By: #### [id number] #### [facility] [address], [place] [address]Xwfycg Absolute3.2 E9/LNormal2.0-7.5FWright[facility]Pat[facility] Comment on above:Performed By: #### [id number] #### [facility] [address] [place] [address]Jgfqne Auto64.2 %Vqlctf52.0-75.0[facility] Comment on above:Performed By: #### [id number] #### [facility] [address] [place] [address]Klcarfzw042.0 E9/IEulklc288.0-500.0[facility] Comment on above:Performed By: #### [id number] #### [facility] [address], [place] [address]Goqpbhbc mean volume (Bld) [Entitic vol]7.7 fLNormal6.4-10.8 [facility] HospitalComment on above:Performed By: #### [id number] #### [facility] [address], [place] [address]ABJ6.0 E12/LNormal4.3-5.9[facility]itan HospitalComment on above:Performed By: #### [id number] #### [facility] [address] [place] [address]ALQ2.0 E9/LNormal4.0-11.0[facility] HospitalComment on above:Performed By: #### [id number] #### [facility] [address], [place] [address]QYIpq 16-94-3307Izetvuh [Mass/Vol]4.2 g/dLNormal3.3-5.0[facility] HospitalComment on above:Performed By: #### [id number] #### [facility] [address], [place] [address]Vjknspm/Globulin [Mass ratio]1.4 {ratio}Normal1.1-2.2FWright-Patterson Medical CenterComment on above:Performed By: #### [id number] #### [facility] [address], [place] [address]Zgy Phos72 Int._Unit/XJzpjeh97-14RcxaoeGood Samaritan Hospital Comment on above:Performed By: #### [id number] #### [facility] [address], [place] [address]NON21 Int._Unit/LNormal6-46[facility]itan HospitalComment on above:Performed By: #### [id number] #### [facility] [address], [place] [address]Jysus gap [Moles/Vol]10 mmol/LNormal6-16[facility]itan HospitalComment on above:Performed By: #### [id number] #### [facility] [address], [place] [address]JXV86 Int._Unit/LNormal5-43[facility] HospitalComment on above:Performed By: #### [id number] #### [facility] [address], [place] [address]Chkz Total0.5 mg/dLNormal0.0-1.1FW[facility] Comment on above:Performed By: #### [id number] #### [facility] [address], [place] [address]ENA/Creat Ratio19 No YngjcTaducb13-15BrvlemGood Samaritan HospitalComment on above:Performed By: #### [id number] #### [facility] [address], [place] [address]Rwdjzno [Mass/Vol]9.3 mg/dLNormal8.9-11.1FWright-Patterson Medical CenterComment on above:Performed By: #### [id number] #### [facility] [address], [place] [address]Rkpkpxsg [Moles/Vol]104 mmol/YSbuotg097-020EjmywnGood Samaritan HospitalComment on above:Performed By: #### [id number] #### [facility] [address], [place] [address]MW1 [Moles/Vol]27 mmol/JQczfzz51-99PgmqgfGood Samaritan Hospital Comment on above:Performed By: #### [id number] #### [facility] [address], [place] [address]Pdwgbnyhod [Mass/Vol]0.8 mg/dLNormal0.5-1.3FWright-Patterson Medical CenterComment on above:Performed By: #### [id number] #### [facility] [address], [place] [address]Ifznwcbr (S) [Mass/Vol]3.0 g/dLNormal1.4-4.0[facility]aritan HospitalComment on above:Performed By: #### [id number] #### [facility] [address], [place] [address]Ynrucvx [Mass/Vol]99 mg/bVYrznif18-741MmtgyuGood Samaritan HospitalComment on above:Performed By: #### [id number] #### [facility] [address], [place] [address]Ufctaktsk [Moles/Vol]4.1 mmol/LNormal3.5-5.3FWright-Patterson Medical CenterComment on above:Performed By: #### [id number] #### [facility] [address], [place] [address]Dqjmdel [Mass/Vol]7.2 g/dLNormal6.0-7.8[facility]aritan HospitalComment on above:Performed By: #### [id number] #### [facility] [address], [place] [address]Gahdnz [Moles/Vol]137 mmol/SVrdzoe556-562AicqgtGood Samaritan HospitalComment on above:Performed By: #### [id number] #### [facility] [address], [place] [address]Kyfm nitrogen [Mass/Vol]15 mg/dLNormal5-21Good Samaritan HospitalComment on above:Performed By: #### [id number] #### [facility] [address], [place] [address]O[place] Medicine Office/Clinic Noteon 87-20-1609Prpohr Medicine Office/Clinic NoteFami Medicine Office/Clinic Note HPI Staff Please speak [...] (Z76.89: Persons encountering health services in other specifiedcircumstances) pt has been taking semaglutide from [facility]. will send refill. she is maintaining at this point. RTC 3 months 2. Screening for hypercholesterolemia (Z13.220: Encounter for screening for lipoid disorders) lipid panel orderd Ordered: CBC w/ Auto Diff Comprehensive Metabolic Panel Lab Specimen Collect 39824 Lipid Panel Thyroid Stimulating Hormone 3. Fatigue (R53.83: Other fatigue) since having IN pt states she is severely fatigued. will check CBC and TSH. has follow up with Cardiology next month. Ordered: CBC w/ Auto Diff Comprehensive Metabolic Panel Lipid Panel Thyroid Stimulating Hormone 4. Adult BMI 50.0-59.9 kg/sq m (Z68.43: Body mass index [BMI] 50.0-59.9, adult) BMI education given. order for semaglutide highest dose sent to [facility]. Ordered: brompheniramine/dextromethorphan/PSE, 5 mL, Oral, QID for cough and congestion, 200 mL, Refill(s) 0, [facility], 153, cm, 08/30/24 11:22:00 EDT, Height/Length Dosing, 118.4, kg, 08/30/24 11:22:00 EDT, Weight Dosing cyclobenzaprine, 10 mg = 1 tab(s), Oral, TID, PRN for spasm, # 30 tab(s), Refills(s) 0, Pharmacy: [facility], 153, cm, 07/15/24 9:24:00 EST, Height/Length Dosing, 117.8, kg, 07/15/24 9:24:00 EST, Weight Dosing quetiapine, 25 mg = 1 tab(s), Oral, Bedtime, # 30 tab(s), Refills(s) 1, Pharmacy: [facility], 153, cm, 07/11/24 8:35:00 EST, Height/Length Dosing, 119.3, kg, 07/11/24 8:35:00 EST, Weight Dosing semaglutide, 0.25 mg, SubCutaneous, qWeek, # 4 EA, Refills(s) 0, Pharmacy: [facility], 153, cm, 07/11/24 8:35:00 EST, Height/Length Dosing, 119.3, kg, 07/11/24 8:35:00 EST, Weight Dosing 5. Non-smoker (Z78.9: Other specified health status) continue not smoking Ordered: brompheniramine/dextromethorphan/PSE, 5 mL, Oral, QID for cough and congestion, 200 mL, Refill(s) 0, [facility], 153, cm, 08/30/24 11:22:00 EDT, Height/Length Dosing, 118.4, kg, 08/30/24 11:22:00 EDT, Weight Dosing cyclobenzaprine, 10 mg = 1 tab(s), Oral, TID, PRN for spasm, # 30 tab(s), Refills(s) 0, Pharmacy: [facility], 153, cm, 07/15/24 9:24:00 EST, Height/Length Dosing, 117.8, kg, 07/15/24 9:24:00 EST, Weight Dosing quetiapine, 25 mg = 1 tab(s), Oral, Bedtime, # 30 tab(s), Refills(s) 1, Pharmacy: [facility], 153, cm, 07/11/24 8:35:00 EST, Height/Length Dosing, 119.3, kg, 07/11/24 8:35:00 EST, Weight Dosing semaglutide, 0.25 mg, SubCutaneous, qWeek, # 4 EA, Refills(s) 0, Pharmacy: [facility], 153, cm, 07/11/24 8:35:00 EST, Height/Length Dosing, 119.3, kg, 07/11/24 8:35:00 EST, Weight Dosing Orders: ondansetron, 4 mg = 1 tab(s), Oral, q6hr, PRN Nausea/Vomiting, # 20 tab(s), Refills(s) 0, Pharmacy:[facility], 153, cm, 07/15/24 9:24:00 EST, Height/Length [...] syndrome Procedure/Surgical History Col (more content not included)...NormalGood Samaritan HospitalComment on above:Result Comment: Electronically Signed By: Le Montano.sandra\Date and Time Signed: 01/02/25 11:11 EDTLipid Panelon 45-52-5126Vrrfeuttmjz [Mass/Vol]214 mg/rNRyqc570-569QgjcfzGood Samaritan HospitalComment on above:Performed By: #### [id number] #### [facility] [address], [place] [address]Dvbusjendit in HDL [Mass/Vol]50 mg/dLInvalid Interpretation CodeGood Samaritan HospitalComment on above:Result Comment: '>= 60 LOW RISK' '<= 40 HIGH RISK'Performed By: #### [id number] #### [facility] [address], [place] [address]Ivszxpddhki in LDL [Mass/Vol]148 mg/dLHigh<=129Good Samaritan HospitalComment on above:Performed By: #### [id number] #### [facility] [address], [place] [address]Hyfqlasjpup in VLDL [Mass/Vol]22 mg/dLNormal7-40Good Samaritan HospitalComment on above:Performed By: #### [id number] #### [facility] [address], [place] [address]Gcvlxebcjxuq [Mass/Vol]108 mg/dLNormal<=149Good Samaritan HospitalComment on above:Performed By: #### [id number] #### [facility] [address], [place] [address]RXZab 37-10-3768DVU Qn0.98 m[IU]/LNormal0.34-5.60Good Samaritan HospitalComment on above:Performed By: #### [id number] #### [facility] [address], [place] [address]eOFLau 69-47-6330vCTI89 mL/min/1.73 d9Xpfhip>=59Good Samaritan HospitalComment on above:Performed By: #### [id number] #### [facility] [address], [place] [address]GGP 12 Leadon 58-34-6167Jyfjz Rhythm Low voltage in precordial leads. -Nonspecific T-abnormality.[facility] HospitalECG 12-LEADon 14-04-1156YQL 12-LEADSinus Rhythm Low voltage in precordial leads. -Nonspecific T-abnormality.[facility] AmbulatoryS[facility]ul[facility] Medicine Office/Clinic Noteon 86-43-5375Xmfook Medicine Office/Clinic NoteFaphaneuf hospital Medicine Office/Clinic Note HPI Staff Please speak [...] and congestion. covid refused. flu negative. doxycycline sentto pharmacy. kenlaog given. airsupra inhaler sample provided. RTC as needed 2. Cough (R05.9: Cough, unspecified) bromfed sent. 60mg kenalog given Ordered: brompheniramine/dextromethorphan/PSE, 5 mL, Oral, QID for cough and congestion, 200 mL, Refill(s) 0, [facility], 153, cm, 08/30/24 11:22:00 EDT, Height/Length Dosing, 118.4, kg, 08/30/24 11:22:00 EDT, Weight Dosing doxycycline, 100 mg = 1 cap(s), Oral, q12hr, X 7 day(s), # 14 cap(s), Refills(s) 0, Pharmacy: [facility], 153, cm, 08/30/24 11:22:00 EDT, Height/Length [...] Screening Negative 3352F Influenza Type A&B POC 34334 Most recent diastolic blood pressure <80 mm Hg 3078F Patient screen for fall risk: no falls in last year or 1 fall with no injury in last year 1101F Systolic BP <130 mm Hg (Most Recent) 3074F 3. Congestion of nasal sinus (R09.81: Nasal congestion) bromfed sent Ordered: brompheniramine/dextromethorphan/PSE, 5 mL, Oral, QID for cough and congestion, 200 mL, Refill(s) 0, [facility], 153, cm, 08/30/24 11:22:00 EDT, Height/Length Dosing, 118.4, kg, 08/30/24 11:22:00 EDT, Weight Dosing doxycycline, 100 mg = 1 cap(s), Oral, q12hr, X 7 day(s), # 14 cap(s), Refills(s) 0, Pharmacy: [facility], 153, cm, 08/30/24 11:22:00 EDT, [...] [BMI] 50.0-59.9, adult) BMI education given Ordered: brompheniramine/dextromethorphan/PSE, 5 mL, Oral, QID for cough and congestion, 200 mL, Refill(s) 0, [facility], 153, cm, 08/30/24 11:22:00 EDT, Height/Length Dosing, 118.4, kg, 08/30/24 11:22:00 EDT, Weight Dosing doxycycline, 100 mg = 1 cap(s), Oral, q12hr, X 7 day(s), # 14 cap(s), Refills(s) 0, Pharmacy: [facility], 153, cm, 08/30/24 11:22:00 EDT, Height/Length [...] tobacco non-user 1036F Depressi (more content not included)...[facility] SystemComment on above:Result Comment: Electronically Signed By: Le Montano\.br\Date and Time Signed: 08/30/24 11:54 EDTAmbulatory Visit Summaryon 07-15-2024 Ambulatory Visit SummaryAmbulatory Visit Summary KEELY BRAGG :1955 Visit Date:07/15/2024 Ambulatory Visit Instructions Your [...] 8:20 AM EDT With: Le Montano Where: [address] [address]- Medications What How Much When Why Instructions New alprazolam (alprazolam 0.25 mg Tab) 0.25 Milligram By Mouth Every day prn Dx F41.9 Pickup at [facility] Unchanged apixaban (Eliquis 5 mg [...] Tab) 1 Tablets By Mouth At bedtime Non- STEMI (non-ST elevated myocardial infarction) HTN - Hypertension Adult BMI 50.0- 59.9 kg/sq m Non-smoker Unchanged semaglutide (Wegovy (0.25 mg dose) subcutaneous solution) 0.25 Milligram Subcutaneous Every week Non-STEMI (non-ST elevated myocardial infarction) HTN - Hypertension Adult BMI 50.0-59.9 kg/sq m Non-smoker Unchanged sertraline (sertraline 100 mg Tab) 100 Milligram By Mouth Every day Pharmacy Information [facility]: [address] [place], [place] [id number] [phone] Allergies Zithromax (Unknown) Problems Ongoing - Any [...] you for choosing us for your care. [facility] Medicine Office/Clinic Noteon 62-59-2999Lpuavd Medicine Office/Clinic NoteSpaulding [facility] Medicine Office/Clinic Note HPI Staff Keely is [...] using her neck and shoulders to scoot upin the bed. Has a constant aching pain [...] spasm, # 30 tab(s), Refills(s) 0, Pharmacy: [facility], 153, cm, 07/15/24 9:24:00 EST, Height/Length Dosing, 117.8, kg, 07/15/24 9:24:00 EST, Weight Dosing methylPREDNISolone, = 1 packet(s), Oral, As Directed, as directed on package labeling, X 6 day(s), # 21 tab(s), Refills(s) 0, Pharmacy: [facility], 153, cm, 07/15/24 9:24:00 EST, Height/Length Dosing, 117.8, kg, 07/15/24 9:24:00 EST, Weight Dosing 2. Adult BMI 50.0-59.9 kg/sq m (Z68.43: Body mass index [BMI] 50.0-59.9, adult) BMI education Ordered: cyclobenzaprine, 10 mg = 1 tab(s), Oral, TID, PRN for spasm, # 30 tab(s), Refills(s) 0, Pharmacy: [facility], 153, cm, 07/15/24 9:24:00 EST, Height/Length Dosing, 117.8, kg, 07/15/24 9:24:00 EST, Weight Dosing methylPREDNISolone, = 1 packet(s), Oral, As Directed, as directed on package labeling, X 6 day(s), # 21 tab(s), Refills(s) 0, Pharmacy: [facility], 153, cm, 07/15/24 9:24:00 EST, Height/Length Dosing, 117.8, kg, 07/15/24 9:24:00 EST, Weight Dosing 3. Non-smoker (Z78.9: Other specified health status) continue not smoking Ordered: cyclobenzaprine, 10 mg = 1 tab(s), Oral, TID, PRN for spasm, # 30 tab(s), Refills(s) 0, Pharmacy: [facility], 153, cm, 07/15/24 9:24:00 EST, Height/Length Dosing, 117.8, kg, 07/15/24 9:24:00 EST, Weight Dosing methylPREDNISolone, = 1 packet(s), Oral, As Directed, as directed on package labeling, X 6 day(s), # 21 tab(s), Refills(s) 0, Pharmacy: [facility], 153, cm, 07/15/24 9:24:00 EST, Height/Length Dosing, 117.8, kg, 07/15/24 9:24:00 EST, Weight Dosing Orders: alprazolam, 0.25 mg, Oral, Daily, prn Dx F41.9, # 30 tab(s), Refills(s) 0, Pharmacy: [facility], 153, cm, 07/15/24 9:24:00 EST, Height/Length Dosing, 117.8, kg, 07/15/24 9:24:00 EST, Weight Dosing alprazolam, 0.25 mg, Oral, Daily, prn Dx F41.9, # 30 tab(s), Refills(s) 0, Pharmacy: [facility] #[id number], 153, cm, 09/02/23 8:30:00 EDT, Height/Length Dosing, [...] SEROquel 25 mg Tab (more content not included)...[facility] SystemComment on above:Result Comment: Electronically Signed By: Le Montano\.br\Date and Time Signed: 07/15/24 09:46 ESTAmbulatory Visit Summaryon 26-45-3098Pclrmgidsv Visit SummaryAmbulatory Visit Summary KEELY BRAGG :1955 Visit Date:07/11/2024 Ambulatory Visit Instructions Your [...] 8:20 AM EDT With: Le Montano Where: [facility] Medicine [place] [id number]- Medications What How Much When Instructions Unchanged [...] you for choosing us for your care. [facility] Medicine Office/Clinic Noteon 17-00-2500Xoyggz Medicine Office/Clinic NoteSpaulding Hospital Cambridge Medicine Office/Clinic Note HPI Staff Keely is a 68 year old female presenting for 3 month follow up Weight management: Semaglutide Sleeping well:Yes, 6-8 hours Chest pain:No Tremors:No Headaches:No Heart fluttering:No Blurred Vision:No Beginning weight: 259.16 Previous weight: 270 Today's weight: 263 Questions/Concerns: doing well no concerns ER followup: Hospital: [facility] Visit date: 07/05/24 Symptoms the patient presented with: Dizzy, lightheaded, jaw pain, heart palpations Symptom onset/injury onset: 07/05/24 Current concerns: Then transferred to [facility] and had heart cath started Metoprolol and Eliquis and d/c bisoprolol/HCTZ was discharged 07/07/24 Pt states she is feeling better just really tired. Has follow up with Cardiology 08/08/24 [facility] Onset: 2 weeks ago [...] pt recently had non-STEMI was taken to [facility] and had heart cath. will follow up with cardiologyin July. denies chest pain or shortness of breath. pt is hoping that since she has another chroniccondition insurance binh cover wegovy or any injectable for weight management. currently paying for compound pharmacy semaglutide. if insurance wont cover it, [facility]. Ordered: quetiapine, 25 mg = 1 tab(s), Oral, Bedtime, # 30 tab(s), Refills(s) 1, Pharmacy: [facility], 153, cm, 07/11/24 8:35:00 EST, Height/Length Dosing, 119.3, kg, 07/11/24 8:35:00 EST, Weight Dosing semaglutide, 0.25 mg, SubCutaneous, qWeek, # 4 EA, Refills(s) 0, Pharmacy: [facility], 153, cm, 07/11/24 8:35:00 EST, Height/Length Dosing, 119.3, kg, 07/11/24 8:35:00 EST, Weight Dosing 2. HTN - Hypertension (I10: Essential (primary) hypertension) BP at goal today Ordered: quetiapine, 25 mg = 1 tab(s), Oral, Bedtime, # 30 tab(s), Refills(s) 1, Pharmacy: [facility], 153, cm, 07/11/24 8:35:00 EST, Height/Length Dosing, 119.3, kg, 07/11/24 8:35:00 EST, Weight Dosing semaglutide, 0.25 mg, SubCutaneous, qWeek, # 4 EA, Refills(s) 0, Pharmacy: [facility], 153, cm, 07/11/24 8:35:00 EST, Height/Length [...] adult) pt has been taking semaglutide through [facility]. she recently had Non stermi and would like for me to order medication through pharmacy. not sure if they will cover it since she has another risk factor after having a IN Ordered: quetiapine, 25 mg = 1 tab(s), Oral, Bedtime, # 30 tab(s), Refills(s) 1, Pharmacy: [facility], 153, cm, 07/11/24 8:35:00 EST, Height/Length Dosing, 119.3, kg, 07/11/24 8:35:00 EST, Weight Dosing semaglutide, 0.25 mg, SubCutaneous, qWeek, # 4 EA, Refills(s) 0, Pharmacy: [facility], 153, cm, 07/11/24 8:35:00 EST, Height/Length Dosing, 119.3, kg, 07/11/24 8:35:00 EST, Weight Dosing 6. Non-smoker (Z78.9: Other specified health status) continue not smoking Ordered: quetiapine, 25 mg = 1 tab(s), Oral, Bedtime, # 30 tab(s), Refills(s) 1, Pharmacy: [facility], 153, cm, 07/11/24 8:35:00 EST, Height/Length Dosing, 119.3, kg, 07/11/24 8:35:00 EST, Weight Dosing semaglutide, 0.25 mg, SubCutaneous, qWeek, # 4 EA, Refills(s) 0, Pharmacy: [facility], 153, cm, 07/11/24 8:35:00 EST, Height/Length Dosing, 119.3, kg, 07/11/24 8:35:00 EST, Weight Dosing Orders: bisoprolol-hydrochlorothiazide, 1 tab(s), Oral, Daily, 90 tab(s), Refill(s) 4, [facility], 153, cm, 09/02/23 8:30:00 (more content not included)...[facility] SystemComment on above:Result Comment: Electronically Signed By: Le Montano\.sandra\Date and Time Signed: 07/11/24 10:07 ESTB-Type Natriuretic Peptideon 90-34-9201Bdezymtjyst peptide B (Bld) [Mass/Vol]110.0 pg/mLHigh5-100The [facility] Physician GroupComment on above: Result Comment: PERFORMED BY: [facility] [address] [place] [address] PATHOLOGIST [employer] BEN MARISCAL M.D.Performed By: #### HS TROP, MG, CBC, BMP, LIPID #### [facility] [address] [place] [address] USABasic Metabolic Panelon 26-64-0008Dxabm gap [Moles/Vol] 10.7 mmol/LNormal6.0-15.0The [facility] Physician GroupComment on above:Performed By: #### HS TROP, MG, CBC, BMP, LIPID #### [place] [address] USACalcium [Mass/Vol]9.0 mg/dLNormal8.6-10.3The [facility] Physician GroupComment on above:Performed By: #### HS TROP, MG, CBC, BMP, LIPID #### [facility] [address] [place] [address] USAChloride [Moles/Vol]105 mmol/FHjnzcu59-864Ovu [facility] Physician GroupComment on above:Performed By: #### HS TROP, MG, CBC, BMP, LIPID #### [place] [address] USACO2 [Moles/Vol]24.9 mmol/RKhzssk52.0-31.0The [facility] Physician GroupComment on above:Performed By: #### HS TROP, MG, CBC, BMP, LIPID #### [place] [address] USACreatinine [Mass/Vol]0.86 mg/dLNormal0.60-1.20The [facility] Physician GroupComment on above:Performed By: #### HS TROP, MG, CBC, BMP, LIPID #### [place] [address] USACreatinine Clr Calc Csgxfnhd24.97NormalThe [facility] Physician GroupComment on above:Result Comment: PERFORMED BY: [place] [address] PATHOLOGIST [employer] BEN MARISCAL M.D.Performed By: #### HS TROP, MG, CBC, BMP, LIPID #### [place] [address] USAGFR/1.73 sq M.predicted MDRD (S/P/Bld) [Vol rate/Area] mL/min/{1.73_m2}NormalThe [facility] Physician GroupComment on above:Performed By: #### HS TROP, MG, CBC, BMP, LIPID #### [place] [address] USAGlucose [Mass/Vol]116 mg/dZLrmo51-782Wpy [facility] Physician GroupComment on above:Result Comment: Random Glucose Reference Range is dependent on time and content of last meal. Glucose of more than 200 mg/dL in a nonstressed, ambulatory subject supports the diagnosis of Diabetes Mellitus. ADA recommended reference rangePerformed By: #### HS TROP, MG, CBC, BMP, LIPID #### [facility] [address] [place] [address] USAPotassium [Moles/Vol]3.6 mmol/LNormal3.5-5.1The [facility] Physician GroupComment on above:Performed By: #### HS TROP, MG, CBC, BMP, LIPID #### [facility] [address] [place] [address] USASodium [Moles/Vol]137 mmol/LZmbtwz315-939Kka [facility] Physician GroupComment on above:Performed By: #### HS TROP, MG, CBC, BMP, LIPID #### [facility] [address] [place] [address] USAUrea nitrogen [Mass/Vol]10 mg/dLNormal7-25The [facility] Physician GroupComment on above:Performed By: #### HS TROP, MG, CBC, BMP, LIPID #### [place] [address] USABasophils Auto (Bld) [#/Vol]Ordered By: Rigoberto Coker on 94-27-5939Aedqbbtpi (Bld) [#/Vol]Automated basophil count0.0-0.2FSt. Rita's HospitalBasophils/100 WBC Auto (Bld)Ordered By: Rigoberto Coker on 61-71-2870Dhitcwlyn/100 WBC (Bld)Automated basophil %.Ohio[facility] HospitalCalcium [Mass/volume] in Serum or PlasmaOrdered By: Rigoberto Coker on 50-92-5953Cyvtuhl [Mass/Vol]Calcium [Mass/volume] in Serum or Plasma 8.6-10.3FSt. Rita's HospitalCarbon dioxide, total [Moles/volume] in Serum or PlasmaOrdered By: Rigoberto Coker on 58-78-7991VR1 [Moles/Vol]Carbon dioxide, total [Moles/volume] in Serum or Waaetd39.0-31.0Ohio[facility] Wert HospitalChloride [Moles/volume] in Serum or PlasmaOrdered By: Rigoberto Coker on 20-45-9427Ifwikwcz [Moles/Vol]Chloride [Moles/volume] in Serum or Cdcbjb73-887PvfflbvraOhiohealth Van Wert HospitalComplete Blood Count Auto Diffon 16-10-8388Staliehzf (Bld) [#/Vol]0.0 10*3/uLNormal0.0-0.2The [facility] Physician GroupComment on above:Result Comment: PERFORMED BY: [place] [address] PATHOLOGIST [employer] BEN MARISCAL M.D.Performed By: #### HS TROP, MG, CBC, BMP, LIPID #### [place] [address] USABasophils/100 WBC (Bld)0.8 %Normal.The [facility] Physician GroupComment on above:Performed By: #### HS TROP, MG, CBC, BMP, LIPID #### [place] [address] USAEosinophils (Bld) [#/Vol]0.2 10*3/uLNormal0.0-0.45The [facility] Physician GroupComment on above:Performed By: #### HS TROP, MG, CBC, BMP, LIPID #### [place] [address] USAEosinophils/100 WBC (Bld)4.8 %Normal.The [facility] Physician GroupComment on above:Performed By: #### HS TROP, MG, CBC, BMP, LIPID #### [place] [address] USAErythrocyte distribution width (RBC) [Ratio]14.0 %Normal 11.9-15.3The [facility] Physician GroupComment on above:Performed By: #### HS TROP, MG, CBC, BMP, LIPID #### [address] [address] USAHematocrit (Bld) [Volume fraction]38.7 %Yohhjq43.0-46.4The [facility] Physician GroupComment on above:Performed By: #### HS TROP, MG, CBC, BMP, LIPID #### [place] [address] USAHemoglobin (Bld) [Mass/Vol]13.2 g/yGFtzerh70.8-15.4The [facility] Physician GroupComment on above:Performed By: #### HS TROP, MG, CBC, BMP, LIPID #### [place] [address] USALymphocytes (Bld) [#/Vol]1.5 10*3/uLNormal1.00-4.8The [facility] Physician GroupComment on above:Performed By: #### HS TROP, MG, CBC, BMP, LIPID #### [place] [address] USALymphocytes/100 WBC (Bld)36.1 %Normal.The [facility] Physician GroupComment on above:Performed By: #### HS TROP, MG, CBC, BMP, LIPID #### [address]H (RBC) [Entitic mass]28.5 qzMvrzto96.7-34.3The [facility] Physician GroupComment on above:Performed By: #### HS TROP, MG, CBC, BMP, LIPID #### [address]V (RBC) [Entitic vol]83.6 rGUdcssw79-224Cho [facility] Physician GroupComment on above:Performed By: #### HS TROP, MG, CBC, BMP, LIPID #### [place] [address] USAMean Corpuscular HGB Conc34.1 g/oBOqanhu87.0-35.0The [facility] Physician GroupComment on above:Performed By: #### HS TROP, MG, CBC, BMP, LIPID #### [address] [place] [address] USAMonocytes (Bld) [#/Vol]0.4 10*3/uLNormal0.0-0.8The [facility] Physician GroupComment on above:Performed By: #### HS TROP, MG, CBC, BMP, LIPID #### [place] [address] USAMonocytes/100 WBC (Bld)16.84 %Normal0.00-20.00The [facility] Physician GroupComment on above:Performed By: #### HS TROP, MG, CBC, BMP, LIPID #### [place] [address] USAMonocytes/100 WBC (Bld)10.4 %Normal.The [facility] Physician GroupComment on above:Performed By: #### HS TROP, MG, CBC, BMP, LIPID #### [place] [address] USANeutrophils (Bld) [#/Vol]2.0 10*3/uLNormal1.8-7.7The [facility] Physician GroupComment on above:Performed By: #### HS TROP, MG, CBC, BMP, LIPID #### [place] [address] USANeutrophils/100 WBC (Bld)47.9 %Normal.The [facility] Physician GroupComment on above:Performed By: #### HS TROP, MG, CBC, BMP, LIPID #### [place] [address] USANRBC%0.3 /100{WBC}Normal0-0.5The [facility] Comment on above:Performed By: #### HS TROP, MG, CBC, BMP, LIPID #### [place] [address] USAPlatelet mean volume (Bld) [Entitic vol]7.1 fLNormal 6.3-10.7The [facility] Physician GroupComment on above:Performed By: #### HS TROP, MG, CBC, BMP, LIPID #### [place] [address] USAPlatelets (Bld) [#/Vol]161 10*3/bDBbdzad348-966Jla [facility] Physician GroupComment on above:Performed By: #### HS TROP, MG, CBC, BMP, LIPID #### [facility] [address] [place] [address] USARBC (Bld) [#/Vol]4.63 10*6/uLNormal3.60-5.00The [facility] Physician GroupComment on above:Performed By: #### HS TROP, MG, CBC, BMP, LIPID #### [facility] [address] [place] [address] USAWBC (Bld) [#/Vol]4.1 10*3/uLNormal3.8-11.6The [facility] Physician GroupComment on above:Performed By: #### HS TROP, MG, CBC, BMP, LIPID #### [facility] [address] [place] [id number] USACreatine Kinaseon 56-44-0015HA [Catalytic activity/Vol]299 U/TPsqo54-883Vxz [facility] Physician GroupComment on above:Performed By: #### HS TROP, MG, CBC, BMP, LIPID #### [facility] [address] [place] [id number] USACreatine kinase [Enzymatic activity/volume] in Serum or PlasmaOrdered By: Rigoberto Coker on 06-32-1638LY [Catalytic activity/Vol] Creatine kinase [Enzymatic activity/volume] in Serum or NljnrkZvqi31-689 [facility] HospitalCreatinine [Mass/volume] in Serum or Plasma Ordered By: Rigoberto Coker on 03-55-2228Xohxxrtjos [Mass/Vol]Creatinine [Mass/volume] in Serum or Plasma0.60-1.20Ohio[facility] Wert HospitalECG 12 lead ECGon 08-43-3850DLD 12 lead ECGDUNLAP [facility]ORIAL [facility] [place] [address] [id number] Electrocardiograph Report Signed Patient: Keely Bragg MR#: [id number] : 1955 Acct:[id number] Age/Sex: 68 / F ADM Date: 07/07/24 Loc: ER Room: [place] [facility] [place]: Ordering Provider: Rigoberto Coker DO Date of Service: 07/07/24 ECG/ECG 12 [...] ms Normal sinus rhythm Confirmed by Rigoberto Coker DO ([id number]) on 07/07/2024 3:58:58 PM Referred By: Electronically Signed By: Rigoberto Coker DO Transcribed By: MUS Signed By Rigoberto Coker DO [id number] [facility] Physician GroupEosinophils Auto (Bld) [#/Vol] Ordered By: Rigoberto Coker on 37-87-2638Emljgfwfyok (Bld) [#/Vol]Automated eosinophil count0.0-0.45[facility] HospitalEosinophils/100 WBC Auto (Bld)Ordered By: Rigoberto Coker on 12-52-9087Mtigstmhdds/100 WBC (Bld) Automated eosinophil %.[facility] HospitalErythrocyte distribution width Auto (RBC) [Ratio]Ordered By: Rigoberto Coker on 85-33-3387Wdtrebbvajd distribution width (RBC) [Ratio]Erythrocyte distribution width [Ratio] by Automated count11.9-15.3FSt. Rita's HospitalGlucose [Mass/volume] in Serum or PlasmaOrdered By: Rigoberto Coker on 22-22-6847Xfxjjzx [Mass/Vol] Glucose [Mass/volume] in Serum or AmqzhjLslv47-231UgwvtustcOhiohealth Van Wert HospitalComment on above:ADA recommended reference rangeRandom Glucose Reference Range is dependent on time and content of last meal. Glucose of more than 200 mg/dL in a nonstressed, ambulatory subject supports the diagnosisof Diabetes Mellitus.Hematocrit Auto (Bld) [Volume fraction]Ordered By: Rigoberto Coker on 81-95-6787Ierohywusa (Bld) [Volume fraction]Hematocrit [Volume Fraction] of Blood by Automated count34.0-46.4FSt. Rita's HospitalHemoglobin [Mass/volume] in BloodOrdered By: Rigoberto Coker on 41-65-1578Gtzdbwqctp (Bld) [Mass/Vol]Hemoglobin [Mass/volume] in Blood11.8-15.4FSt. Rita's HospitalINR in Platelet poor plasma by Coagulation assayOrdered By: Rigoberto Coker on 29-28-6861MMA Coag (PPP) [Relative time]INR in Platelet poor plasma by Coagulation assayOhiohealth Van Wert HospitalComment on above:INR Therapeutic Range A) Pre- and Peroperative OAT started two weeks before surgery. NOT HIP SURGERY: 1.5 - 2.5 HIP SURGERY: 2 - 3B) Primary and secondary prevention of venous THROMBOSIS: 2 - 3C) Active venous thrombosis, pulmonary embolismand prevention of recurrent venous thrombosis: 2 - 3D) Prevention of arterial thromboembolismincluding patients with mechanical heart valves: 3 - 4.5 Leukocytes [#/volume] corrected for nucleated erythrocytes in Blood by Automated counOrdered By: Rigoberto Coker on 12-45-3644VKD corrected for nucl RBC Auto (Bld) [#/Vol]Leukocytes [#/volume] corrected for nucleated erythrocytes in Blood by Automated coun3.8-11.6FSt. Rita's HospitalLymphocytes Auto (Bld) [#/Vol]Ordered By: Rigoberto Coker on 90-56-9503Mcghzcohugu (Bld) [#/Vol] Lymphocytes [#/volume] in Blood by Automated count1.00-4.8Ohio[facility] HospitalLymphocytes/100 WBC Auto (Bld)Ordered By: Rigoberto Coker on 34-04-7554Jlstfxkcicv/100 WBC (Bld)Lymphocytes/100 leukocytes in Blood by Automated count.[facility]H Auto (RBC) [Entitic mass] Ordered By: Rigoberto Coker on 25-48-4842XSD (RBC) [Entitic mass]MCH [Entitic mass] by Automated count24.7-34.3FSt. Rita's HospitalMCHC Auto (RBC) [Mass/Vol]Ordered By: Rigoberto Coker on 78-67-6242KIFA (RBC) [Mass/Vol] MCHC [Mass/volume] by Automated count32.0-35.0[facility] MCV Auto (RBC) [Entitic vol]Ordered By: Rigoberto Coker on 09-81-9690MSF (RBC) [Entitic vol]MCV [Entitic volume] by Automated uaynf47-839VjneknztqOhiohealth Van Wert HospitalMonocyte distribution width [Entitic volume] in Blood by Automated Ordered By: Rigoberto Coker on 35-84-9854Bnbvmgnh distribution width Auto (Bld) [Entitic vol]Monocyte distribution width [Entitic volume] in Blood by Automated 0.00-20.00[facility] HospitalMonocytes Auto (Bld) [#/Vol]Ordered By: Rigoberto Coker on 38-14-0027Twewyxozc (Bld) [#/Vol]Automated blood monocyte count0.0-0.8[facility] HospitalMonocytes/100 WBC Auto (Bld)Ordered By: Rigoberto Coker on 96-53-1242Vuhlcczwk/100 WBC (Bld)Automated monocyte %.[facility] HospitalNatriuretic peptide B [Mass/Vol] Ordered By: Rigoberto Coker on 57-77-8459Bdixdlrujvf peptide B (Bld) [Mass/Vol] BNP ser/plasHigh5-100Ohio[facility] HospitalNeutrophils Auto (Bld) [#/Vol]Ordered By: Rigoberto Coker on 17-47-4061Gzctljgkbld (Bld) [#/Vol] Neutrophils [#/volume] in Blood by Automated count1.8-7.7FSt. Rita's HospitalNeutrophils/100 WBC Auto (Bld)Ordered By: Rigoberto Coker on 91-47-6789Shledwolpga/100 WBC (Bld)Automated neutrophil %.[facility] HospitalNo Panel InformationOrdered By: Rigobetro Coker on 07-07-2024 Estimated GFR (CKD-EPI)> 60.0 mL/MinOhiohealth Van Wert HospitalPharmacy Creatinine Clearance (Chem74.97Ohio[facility] HospitalNucleated erythrocytes [Presence] in Blood by Automated countOrdered By: Rigoberto Coker on 94-95-1211Uaeisjnoa RBC Auto Ql (Bld)Nucleated erythrocytes [Presence] in Blood by Automated count0-0.5FSt. Rita's HospitalPlatelet mean volume Auto (Bld) [Entitic vol]Ordered By: Rigoberto Coker on 07-07-2024 Platelet mean volume (Bld) [Entitic vol]Platelet mean volume [Entitic volume] in Blood by Automated count6.3-10.7FSt. Rita's HospitalPlatelets Auto (Bld) [#/Vol]Ordered By: Rigoberto Coker on 11-40-1165Uhbppcdlh (Bld) [#/Vol] Platelets [#/volume] in Blood by Automated ucibv974-000YehzmirrqOhiohealth Van Wert HospitalPotassium [Moles/volume] in Serum or PlasmaOrdered By: Rigoberto Coker on 23-48-0293Yvlihtdgp [Moles/Vol]Potassium [Moles/volume] in Serum or Plasma3.5-5.1FSt. Rita's HospitalProthrombin Time INRon 07-07-2024 INR Coag (PPP) [Relative time]1.0 {INR}NormalThe [facility] Comment on above:Result Comment: INR Therapeutic Range A) Pre- and [...] heart valves: 3 - 4.5 PERFORMED BY: [place] [address] PATHOLOGIST [employer] BEN MARISCAL M.D.Performed By: #### HS TROP, MG, CBC, BMP, LIPID #### [facility] [address] [place] [address] USAPT Coag (PPP) [Time]11.0 sNormal9.0-12.9The [facility] Physician GroupComment on above:Result Comment: A hematocrit value greater than 55% may lead to inaccurate results in coagulation testing. Patients having hematocrit values >55% require a special collection tube for coagulation studies. Please contact the laboratory at [phone] for redraw instructions.Performed By: #### HS TROP, MG, CBC, BMP, LIPID #### [facility] [address] [place] [address] USAProthrombin time (PT)Ordered By: Rigoberto Coker on 13-80-3393VM Coag (PPP) [Time]Prothrombin time (PT)9.0-12.9Ohio[facility] Wert HospitalComment on above:A hematocrit value greater than 55% may lead to inaccurate results in coagulation testing. Patientshaving hematocrit values >55% require a special collection tube for coagulation studies. Please contact the laboratory at [phone] for redraw instructions.RBC Auto (Bld) [#/Vol]Ordered By: Rigoberto Coker on 48-30-2730PRK (Bld) [#/Vol]Erythrocytes [#/volume] in Blood by Automated count3.60-5.00[facility] Centererum or plasma anion gap determinationOrdered By: Rigoberto Coker on 58-45-0897Kdsdw gap [Moles/Vol]Serum or plasma anion gap determination6.0-15.0[facility] Medical Centerodium [Moles/volume] in Serum or PlasmaOrdered By: Rigoberto Coker on 59-95-4585Oldidl [Moles/Vol]Sodium [Moles/volume] in Serum or Plasma 136-145Ohio[facility] Wert HospitalTroponin I High Sensitivityon 07-07-2024 Troponin I High Dpeyaaafmdk321Lks scale high0-15The [facility] Comment on above:Result Comment: Critical Result : Called to and read back by: KEM DUVAL at: 07/07/2024 10:24:21 by:JOSSY The Troponin units of report have been changed to meet the Chest Pain Accreditation requirement, element EC5.M1l2. Troponin units are changed from pg/ml to ng/L. Also, the decimal is removed and results are in whole numbers. PERFORMED BY: [address] [address] PATHOLOGIST [employer] BEN MARISCAL M.D.Performed By: #### HS TROP, MG, CBC, BMP, LIPID #### [address] [address] USATroponin I High Velqkfvraas776Fxm scale high0-15The [facility] Physician GroupComment on above:Result Comment: Critical Result : Called to and read back by: KEM DUVAL at: 07/07/2024 08:00:55 by:JOSSY The Troponin units of report have been changed to meet the Chest Pain Accreditation requirement, element EC5.M1l2. Troponin units are changed from pg/ml to ng/L. Also, the decimal is removed and results are in whole numbers. PERFORMED BY: [facility] [address] [place] [id number] PATHOLOGIST [employer] BEN MARISCAL M.D.Performed By: #### HS TROP, MG, CBC, BMP, LIPID #### [facility] [address] [place] [id number] USATroponin I.cardiac [Mass/volume] in Serum or Plasma by Detection limit <= 0.01 ng/Ordered By: Rigoberto Coker on 40-81-1625Brpphhtp I.cardiac DL <= 0.01 ng/mL [Mass/Vol]Troponin I.cardiac [Mass/volume] in Serum or Plasma by Detection limit <= 0.01 ng/Critically high0-15[facility] HospitalComment on above:Critical Result : Called to and read back by: KEM DUVAL at: 07/07/2024 10:24:21 by:JOSSYThe Troponin units of report have been changed to meet the Chest Pain Accreditation requirement, element EC5.M1l2. Troponin units are changed from pg/ml to ng/L. Also, the decimal is removed and results are in whole numbers.Urea nitrogen [Mass/volume] in Serum or Plasma Ordered By: Rigoberto Coker on 26-62-5877Tzho nitrogen [Mass/Vol]Urea nitrogen [Mass/volume] in Serum or Plasma12-09Ohio[facility] HospitalWBC Auto (Bld) [#/Vol]Ordered By: Rigoberto Coker on 67-43-7357SAA (Bld) [#/Vol] Leukocytes [#/volume] in Blood by Automated count3.8-11.6FSt. Rita's HospitalX-ray reportOrdered By: Shkuri Lane on 44-04-1464Rayzn report [facility] Main [address] [address] XRay Report Signed Patient: Keely Bragg MR#: [id number] : 1955 Acct:[id number] Age/Sex: 68 / F ADM Date: 5 Loc: ER Room: Type: [facility] ER Attending Dr: Copies to: Rigoberto Coker DO~ Ordering Provider: Rigoberto Coker DO Date of Service: 07/07/24 XR/XR chest [...] Shukri Lane M.D.07/07/2024 8:15 AM Dictation Location: [place] [address] Transcribed By: [facility] 07/07/24 0815 Dictated By: Shukri Lane DO 07/07/24 0815 Signed By: 07/07/24 0815 [facility] HospitalXR chest 2V*on 47-63-7356CU chest 2V*[facility] Main [address] [address] XRay Report Signed Patient: Keely Bragg MR#: [id number] : 1955 Acct:[id number] Age/Sex: 68 / F ADM Date: 07/07/24 Loc: ER Room: Type: [facility] ER Attending Dr: Copies to: Rigoberto Coker DO Ordering Provider: Rigoberto Coker DO Date of Service: 07/07/24 XR/XR chest [...] Shukri Lane M.D.07/07/2024 8:15 AM Dictation Location: [place] [address] Transcribed By: [facility] 07/07/24814 Dictated By: Shukri Lane DO 07/07/[address] Signed By: 07/07/24 0815[facility] Physician GroupAnti-Xa UF Heparinon 07-06-2024 Anti-Xa UF Heparin0.19 [IU]/mLLow0.30-0.70The [facility] GulfportComment on above:Result Comment: Use the aPTT protocol when triglycerides are > 800 mg/dL, total bilirubin is > 20 mg/dL and/or patient has received a DOAC, Fondaparinux or LMWH within 72 hours AND baseline anti-Xa level is > 0.7 units/mL PERFORMED BY: [place] [address] PATHOLOGIST [employer] BEN MARISCAL M.D.Performed By: #### HS TROP, MG, CBC, BMP, LIPID #### [facility] [address] [place] [address] USAAnti-Xa UF Heparin0.31 [IU]/mLNormal0.30-0.70The [facility] Medical CenterComment on above:Result Comment: Use the aPTT protocol when triglycerides are > 800 mg/dL, total bilirubin is > 20 mg/dL and/or patient has received a DOAC, Fondaparinux or LMWH within 72 hours AND baseline anti-Xa level is > 0.7 units/mL PERFORMED BY: [place] [address] PATHOLOGIST [employer] BEN MARISCAL M.D.Performed By: #### HS TROP, MG, CBC, BMP, LIPID #### [facility] [address] [place] [address] USABasic Metabolic Panelon 52-51-3077Ltcja gap [Moles/Vol] 10.5 mmol/LNormal6.0-15.0The [facility] Physician GroupComment on above:Performed By: #### HS TROP, MG, CBC, BMP, LIPID #### [facility] [address] [place] [address] USACalcium [Mass/Vol]9.3 mg/dLNormal8.6-10.3The [facility] Physician GroupComment on above:Performed By: #### HS TROP, MG, CBC, BMP, LIPID #### [facility] [address] [place] [address] USAChloride [Moles/Vol]103 mmol/VKutnze57-170Yyw [facility] Physician GroupComment on above:Performed By: #### HS TROP, MG, CBC, BMP, LIPID #### [facility] [address] [place] [address] USACO2 [Moles/Vol]26.5 mmol/FKfnlxi51.0-31.0The [facility] Physician GroupComment on above:Performed By: #### HS TROP, MG, CBC, BMP, LIPID #### [facility] [address] [place] [address] USACreatinine [Mass/Vol]0.81 mg/dLNormal0.60-1.20The [facility] Physician GroupComment on above:Performed By: #### HS TROP, MG, CBC, BMP, LIPID #### [facility] [address] [place] [address] USACreatinine Clr Calc Bjthsbvp20.48NormalThe [facility] Physician GroupComment on above:Performed By: #### HS TROP, MG, CBC, BMP, LIPID #### [facility] [address] [place] [address] USAGFR/1.73 sq M.predicted MDRD (S/P/Bld) [Vol rate/Area] mL/min/{1.73_m2}NormalThe [facility] Physician GroupComment on above:Performed By: #### HS TROP, MG, CBC, BMP, LIPID #### [facility] [address] [place] [address] USAGlucose [Mass/Vol]98 mg/yZJgxmtt20-639Cmg [facility] Physician GroupComment on above:Result Comment: Random Glucose Reference Range is dependent on time and content of last meal. Glucose of more than 200 mg/dL in a nonstressed, ambulatory subject supports the diagnosis of Diabetes Mellitus. ADA recommended reference rangePerformed By: #### HS TROP, MG, CBC, BMP, LIPID #### [facility] [address] [place] [address] USAPotassium [Moles/Vol]4.0 mmol/LNormal3.5-5.1The [facility] Physician GroupComment on above:Performed By: #### HS TROP, MG, CBC, BMP, LIPID #### [facility] [address] [place] [address] USASodium [Moles/Vol]136 mmol/XNuhthn414-801Rby [facility] Physician GroupComment on above:Performed By: #### HS TROP, MG, CBC, BMP, LIPID #### [facility] [address] [place] [address] USAUrea nitrogen [Mass/Vol]10 mg/dLNormal7-25The [facility] Physician GroupComment on above:Performed By: #### HS TROP, MG, CBC, BMP, LIPID #### [facility] [address] [place] [address] USABasophils Auto (Bld) [#/Vol]Ordered By: Akua Ellsworth on 71-71-8783Rqxcmqbkn (Bld) [#/Vol]Automated basophil count0.0-0.2FSt. Rita's HospitalBasophils/100 WBC Auto (Bld)Ordered By: Akua Ellsworth on 65-47-8777Ssngfsvzv/100 WBC (Bld)Automated basophil %.[facility] HospitalCalcium [Mass/volume] in Serum or PlasmaOrdered By: Akua Ellsworth on 02-98-8929Jhuguoc [Mass/Vol]Calcium [Mass/volume] in Serum or Plasma8.6-10.3 [facility] HospitalCarbon dioxide, total [Moles/volume] in Serum or PlasmaOrdered By: Akua Ellsworth on 76-59-7139OX8 [Moles/Vol]Carbon dioxide, total [Moles/volume] in Serum or Uehakl17.0-31.0[facility] HospitalChloride [Moles/volume] in Serum or PlasmaOrdered By: Akua Ellsworth on 95-69-8431Imfmeskb [Moles/Vol]Chloride [Moles/volume] in Serum or Dwdyku97-048 [facility] HospitalCholesterol [Mass/volume] in Serum or Plasma Ordered By: Akua Ellsworth on 87-93-9212Dxbsoxtsglm [Mass/Vol]Cholesterol [Mass/volume] in Serum or Trihqz620-518ZdcrzvsmrOhiohealth Van Wert HospitalComment on above:Chol less than 200 mg/dl low riskChol 201-239 mg/dl borderline riskChol 240 mg/dl and greater high riskCholesterol in HDL [Mass/volume] in Serum or PlasmaOrdered By: Akua Ellsworth on 52-62-6159Deklfxyoian in HDL [Mass/Vol]Serum or plasma high density lipoprotein (HDL) cholesterol qwcimyicxil50-00IoaejbufhOhiohealth Van Wert HospitalComment on above:HDL CHOL ATP-III CLASSIFICATION Cardiovascular RiskHDL > or equal to 60 mg/dL LOWHDL < 40 mg/dL HIGHCholesterol in LDL Calc [Mass/Vol]Ordered By: Akua Ellsworth on 25-80-9512Jkitaboearo in LDL [Mass/Vol]Cholesterol in LDL [Mass/volume] in Serum or Plasma by calculationHigh 0-100[facility] HospitalComment on above:LDL ATP III CLASSIFICATIONLDL less than 100 mg/dL OptimalLDL 100-129 mg/dL Near or above yaacgmbUOC436-949 mg/dL Borderline highLDL 160-189 mg/dL HighLDL greater than 189 mg/dL Very highCholesterol in VLDL Calc [Mass/Vol]Ordered By: Akua Ellsworth on 36-49-5269Vyafradnkgt in VLDL [Mass/Vol]Cholesterol in VLDL [Mass/volume] in Serum or Plasma by calculationOhiohealth Van Wert HospitalComplete Blood Count Auto Diffon 83-61-7008Oyhksxnyt (Bld) [#/Vol]0.0 10*3/uLNormal0.0-0.2The [facility] Physician GroupComment on above:Result Comment: PERFORMED BY: [place] [address] [place] [address] PATHOLOGIST [employer] BEN MARISCAL M.D.Performed By: #### HS TROP, MG, CBC, BMP, LIPID #### [place] [address] USABasophils/100 WBC (Bld)0.5 %Normal.The [facility] Physician GroupComment on above:Performed By: #### HS TROP, MG, CBC, BMP, LIPID #### [place] [address] USAEosinophils (Bld) [#/Vol]0.1 10*3/uLNormal0.0-0.45The [facility] Physician GroupComment on above:Performed By: #### HS TROP, MG, CBC, BMP, LIPID #### [place] [address] USAEosinophils/100 WBC (Bld)1.9 %Normal.The [facility] Physician GroupComment on above:Performed By: #### HS TROP, MG, CBC, BMP, LIPID #### [place] [address] USAErythrocyte distribution width (RBC) [Ratio]13.9 %Normal 11.9-15.3The [facility] Physician GroupComment on above:Performed By: #### HS TROP, MG, CBC, BMP, LIPID #### [place] [address] USAHematocrit (Bld) [Volume fraction]36.8 %Nlbwod63.0-46.4The [facility] Physician GroupComment on above:Performed By: #### HS TROP, MG, CBC, BMP, LIPID #### [place] [address] USAHemoglobin (Bld) [Mass/Vol]12.9 g/rVMddlac53.8-15.4The [facility]ician GroupComment on above:Performed By: #### HS TROP, MG, CBC, BMP, LIPID #### [place] [address] USALymphocytes (Bld) [#/Vol]1.9 10*3/uLNormal1.00-4.8The [facility] Physician GroupComment on above:Performed By: #### HS TROP, MG, CBC, BMP, LIPID #### [place] [address] USALymphocytes/100 WBC (Bld)30.6 %Normal.The [facility] Physician GroupComment on above:Performed By: #### HS TROP, MG, CBC, BMP, LIPID #### [address] (RBC) [Entitic mass]28.9 rxQlyzbb34.7-34.3The [facility] Physician GroupComment on above:Performed By: #### HS TROP, MG, CBC, BMP, LIPID #### [address] (RBC) [Entitic vol]82.4 cTFrthag61-255Svu [facility] Physician GroupComment on above:Performed By: #### HS TROP, MG, CBC, BMP, LIPID #### [place] [address] USAMean Corpuscular HGB Conc35.0 g/dKOmlrnt83.0-35.0The [facility] Physician GroupComment on above:Performed By: #### HS TROP, MG, CBC, BMP, LIPID #### [place] [address] USAMonocytes (Bld) [#/Vol]0.5 10*3/uLNormal0.0-0.8The [facility] Physician GroupComment on above:Performed By: #### HS TROP, MG, CBC, BMP, LIPID #### [place] [address] USAMonocytes/100 WBC (Bld)8.2 %Normal.The [facility] Physician GroupComment on above:Performed By: #### HS TROP, MG, CBC, BMP, LIPID #### [place] [address] USANeutrophils (Bld) [#/Vol]3.6 10*3/uLNormal1.8-7.7The [facility]ician GroupComment on above:Performed By: #### HS TROP, MG, CBC, BMP, LIPID #### [facility] [address] [place] [address] USANeutrophils/100 WBC (Bld)58.8 %Normal.The [facility] Physician GroupComment on above:Performed By: #### HS TROP, MG, CBC, BMP, LIPID #### [facility] [address] [place] [address] USANRBC%0.1 /100{WBC}Normal0-0.5The [facility] Comment on above:Performed By: #### HS TROP, MG, CBC, BMP, LIPID #### [facility] [address] [place] [address] USAPlatelet mean volume (Bld) [Entitic vol]7.4 fLNormal 6.3-10.7The [facility] Physician GroupComment on above:Performed By: #### HS TROP, MG, CBC, BMP, LIPID #### [facility] [address] [place] [address] USAPlatelets (Bld) [#/Vol]168 10*3/kGIxvwsg100-838Qpe [facility] GroupComment on above:Performed By: #### HS TROP, MG, CBC, BMP, LIPID #### [facility] [address] [place] [address] USARBC (Bld) [#/Vol]4.47 10*6/uLNormal3.60-5.00The [facility] Physician GroupComment on above:Performed By: #### HS TROP, MG, CBC, BMP, LIPID #### [facility] [address] [place] [address] USAWBC (Bld) [#/Vol]6.1 10*3/uLNormal3.8-11.6The [facility] GroupComment on above:Performed By: #### HS TROP, MG, CBC, BMP, LIPID #### [facility] [address] [place] [address] USACreatinine [Mass/volume] in Serum or PlasmaOrdered By: Akua Ellsworth on 84-30-1996Recflklkir [Mass/Vol]Creatinine [Mass/volume] in Serum or Plasma0.60-1.20[facility] HospitalECG 12 lead ECGon 07-06-2024 ECG 12 lead ECGDUNLAP [facility] Main [address] [address] Electrocardiograph Report Signed Patient: Keely Bragg MR#: [id number] : 1955 Acct:[id number] Age/Sex: 68 / F ADM Date: 07/05/24 Loc: 3T Room: [address] [place] [address] Type: ADM IN Attending Dr: Christina Julien [...] in Inferior leads Confirmed by Angel Gutierrez ([id number]) on 07/06/2024 2:54:36 PM Referred By: Electronically Signed By: Angel Gtuierrez Transcribed By: MUS Signed By Angel Gutierrez MD 07/06/[address] [place] [address] Physician GroupECH echo transthoracicon 98-69-7449RAS echo transthoracicDUNLAP MEMORIAL HOSPITAL Main [address] [address] Echocardiogram Signed Patient: Keely Bragg MR#: [id number] : 1955 Acct:[id number] Age/Sex: 68 / F ADM Date: 07/05/24 Loc: 3T Room: [address] [place] [address] Type: ADM IN Attending Dr: Christina Julien [...] (): LAVmin (): 29.0 ml Pat Height (): 37.0 ml/m2 78.0 ml 157.0 cm __ [...] 0955 Signed By: Angel Gutierrez MD 07/06/24 1440[facility] Physician GroupEosinophils Auto (Bld) [#/Vol]Ordered By: Akua Ellsworth on 41-15-0325Qzqzduqyyix (Bld) [#/Vol]Automated eosinophil count0.0-0.45[facility] HospitalEosinophils/100 WBC Auto (Bld)Ordered By: Akua Ellsworth on 36-46-5140Tdkbjrqztsu/100 WBC (Bld)Automated eosinophil %.[facility] HospitalErythrocyte distribution width Auto (RBC) [Ratio]Ordered By: Akua Ellsworth on 24-75-8594Nowxewjvzus distribution width (RBC) [Ratio]Erythrocyte distribution width [Ratio] by Automated count11.9-15.3FSt. Rita's HospitalGlucose [Mass/volume] in Serum or PlasmaOrdered By: Akua Ellsworth on 72-58-1568Mgyoxol [Mass/Vol]Glucose [Mass/volume] in Serum or Bsxnqk84-159 [facility] HospitalComment on above:ADA recommended reference rangeRandom Glucose Reference Range is dependent on time and content of last meal. Glucose of more than 200 mg/dL in a nonstressed, ambulatory subject supports the diagnosisof Diabetes Mellitus.Hematocrit Auto (Bld) [Volume fraction]Ordered By: Akua Ellsworth on 44-46-0982Tlqupjdawr (Bld) [Volume fraction] Hematocrit [Volume Fraction] of Blood by Automated count34.0-46.4FSt. Rita's HospitalHemoglobin [Mass/volume] in BloodOrdered By: Akua Ellsworth on 89-07-6139Nbgvehedxf (Bld) [Mass/Vol]Hemoglobin [Mass/volume] in Blood 11.8-15.4FSt. Rita's HospitalHeparin anti-Xa unfractionatedOrdered By: Akua Ellsworth on 45-49-2546Prqzrcq unfractionated Chromogenic method Qn (PPP) Heparin anti-Xa unfractionatedLow0.30-0.70[facility] Comment on above:Use the aPTT protocol when triglycerides are > 800 mg/dL,total bilirubin is > 20 mg/dL and/orpatient has received aDOAC, Fondaparinux or LMWH within 72 hours AND baselineanti-Xa level is > 0.7 units/mLLeukocytes [#/volume] corrected for nucleated erythrocytes in Blood by Automated counOrdered By: Akua Ellsworth on 09-59-1297KCT corrected for nucl RBC Auto (Bld) [#/Vol]Leukocytes [#/volume] corrected for nucleated erythrocytes in Blood by Automated coun 3.8-11.6FSt. Rita's HospitalLipid Panelon 38-81-8458Ktbvmnbgdoq [Mass/Vol]196 mg/sQKjlsvv034-788Gcz [facility] Physician GroupComment on above: Result Comment: Chol less than 200 mg/dl low risk Chol 201-239 mg/dl borderline risk Chol 240 mg/dl and greater high riskPerformed By: #### HS TROP, MG, CBC, BMP, LIPID #### [facility] [address] [place] [address] USACholesterol in HDL [Mass/Vol]42 mg/wDXlrevk02-20Kcg [facility] Physician GroupComment on above:Result Comment: HDL CHOL ATP-III CLASSIFICATION Cardiovascular Risk HDL > or equal to 60 mg/dL LOW HDL < 40 mg/dL HIGHPerformed By: #### HS TROP, MG, CBC, BMP, LIPID #### [facility] [address] [place] [address] USACholesterol.total/Cholesterol in HDL [Mass ratio]4.7 {ratio}Normal<5.0The [facility]ard[facility] Physician GroupComment on above:Result Comment: PERFORMED BY: [place] [address] PATHOLOGIST [employer] BEN MARISCAL M.D.Performed By: #### HS TROP, MG, CBC, BMP, LIPID #### [place] [id number] USALDL Cholesterol,Hnkglcdshi866 mg/dLHigh0-100The [facility] Physician GroupComment on above:Result Comment: LDL ATP III CLASSIFICATION LDL less than 100 mg/dL Optimal LDL 100-129 mg/dL Near or above optimal LDL 130-159 mg/dL Borderline high LDL 160-189 mg/dL High LDL greater than 189 mg/dL Very highPerformed By: #### HS TROP, MG, CBC, BMP, LIPID #### [facility] [address] [place] [address] USATriglyceride w/Ckhfgp111 mg/dLNormal0-149The [facility] Physician GroupComment on above:Result Comment: TRIG ATP III CLASSIFICATION TRIG less than 150 mg/dL Normal TRIG 150-199 mg/dL Borderline high TRIG 200-500 mg/dL High TRIG greater than 500 mg/dL Very high Standard traceable to the Center for Disease Conrtrol and Prevention (CDC) test method.Performed By: #### HS TROP, MG, CBC, BMP, LIPID #### [facility] [address] [place] [address] USAVLDL YNZKSBAJZAJ32 mg/dLNormalThe [facility] Physician GroupComment on above:Performed By: #### HS TROP, MG, CBC, BMP, LIPID #### [facility] [address] [place] [address] USALymphocytes Auto (Bld) [#/Vol]Ordered By: Akua Ellsworth on 12-88-6848Nlizxottiiu (Bld) [#/Vol]Lymphocytes [#/volume] in Blood by Automated count1.00-4.8[facility] HospitalLymphocytes/100 WBC Auto (Bld) Ordered By: Akua Ellsworth on 23-53-7827Tgxqinbtdhu/100 WBC (Bld)Lymphocytes/100 leukocytes in Blood by Automated count.[facility] Auto (RBC) [Entitic mass]Ordered By: Akua Ellsworth on 72-42-7858RIN (RBC) [Entitic mass]MCH [Entitic mass] by Automated count24.7-34.3FMount Carmel Health SystemHC Auto (RBC) [Mass/Vol]Ordered By: Akua Ellsworth on 79-07-4422QDIE (RBC) [Mass/Vol]MCHC [Mass/volume] by Automated count32.0-35.0[facility] HospitalV Auto (RBC) [Entitic vol]Ordered By: Akua Ellsworth on 07-06-2024 MCV (RBC) [Entitic vol]MCV [Entitic volume] by Automated kedrv10-667PsdsmlmvnOhiohealth Van Wert HospitalMagnesiumon 60-76-8012Lrhfomrxi [Mass/Vol]1.9 mg/dLNormal 1.9-2.7The [facility] Physician GroupComment on above:Performed By: #### HS TROP, MG, CBC, BMP, LIPID #### [facility] [address] [place] [address] USAMagnesium [Mass/volume] in Serum or PlasmaOrdered By: Akua Ellsworth on 16-63-3136Wdpkaaesq [Mass/Vol]Magnesium [Mass/volume] in Serum or Plasma1.9-2.7FSt. Rita's HospitalMonocytes Auto (Bld) [#/Vol] Ordered By: Akua Ellsworth on 24-54-0902Lettplpiq (Bld) [#/Vol]Automated blood monocyte count0.0-0.8[facility] HospitalMonocytes/100 WBC Auto (Bld)Ordered By: Akua Ellsworth on 59-02-5468Arzlbhgdq/100 WBC (Bld)Automated monocyte %.[facility] HospitalNeutrophils Auto (Bld) [#/Vol] Ordered By: Akua Ellsworth on 85-13-1665Exnhtemigbc (Bld) [#/Vol]Neutrophils [#/volume] in Blood by Automated count1.8-7.7FSt. Rita's Hospital Neutrophils/100 WBC Auto (Bld)Ordered By: Akua Ellsworth on 07-06-2024 Neutrophils/100 WBC (Bld)Automated neutrophil %.[facility] HospitalNo Panel InformationOrdered By: Akua Ellsworth on 95-53-4389Wbjqvdxrf GFR (CKD-EPI)> 60.0 mL/MinOhiohealth Van Wert HospitalPharmacy Creatinine Clearance (Chem79.48Ohio[facility] HospitalNucleated erythrocytes [Presence] in Blood by Automated countOrdered By: Akua Ellsworth on 07-06-2024 Nucleated RBC Auto Ql (Bld)Nucleated erythrocytes [Presence] in Blood by Automated count0-0.5FSt. Rita's HospitalPlatelet mean volume Auto (Bld) [Entitic vol]Ordered By: Akua Ellsworth on 55-74-1140Lnjxxqmp mean volume (Bld) [Entitic vol]Platelet mean volume [Entitic volume] in Blood by Automated count6.3-10.7FSt. Rita's HospitalPlatelets Auto (Bld) [#/Vol] Ordered By: Akua Ellsworth on 88-10-8661Ydozobrdx (Bld) [#/Vol]Platelets [#/volume] in Blood by Automated lzrqi091-047PxxxvuynyOhiohealth Van Wert HospitalPotassium [Moles/volume] in Serum or PlasmaOrdered By: Akua Ellsworth on 01-09-6464Iykaubiqy [Moles/Vol]Potassium [Moles/volume] in Serum or Plasma3.5-5.1FSt. Rita's HospitalRBC Auto (Bld) [#/Vol]Ordered By: Akua Ellsworth on 98-82-6660KHY (Bld) [#/Vol]Erythrocytes [#/volume] in Blood by Automated count3.60-5.00 [facility] Medical Centererum or plasma anion gap determinationOrdered By: Akua Ellsworth on 56-39-2078Mxyhb gap [Moles/Vol]Serum or plasma anion gap determination6.0-15.0[facility] Medical Centererum or plasma total cholesterol/high density lipoprotein (HDL) cholesterol mass ratOrdered By: Akua Ellsworth on 63-97-2740Vpyzvjtfmoy.total/Cholesterol in HDL [Mass ratio]Serum or plasma total cholesterol/high density lipoprotein (HDL) cholesterol mass rat<5.0 [facility] Medical Centerodium [Moles/volume] in Serum or PlasmaOrdered By: Akua Ellsworth on 04-93-0703Rtxvjh [Moles/Vol]Sodium [Moles/volume] in Serum or Bobzjf777-674ClqzinxzeOhiohealth Van Wert HospitalTriglyceride [Mass/volume] in Serum or PlasmaOrdered By: Akua Ellsworth on 35-46-2540Iumwyvbrcvcs [Mass/Vol] Triglyceride [Mass/volume] in Serum or Plasma0-149Ohio[facility] HospitalComment on above:TRIG ATP III CLASSIFICATIONTRIG less than 150 mg/dL NormalTRIG 150-199 mg/dL Borderline highTRIG 200-500 mg/dL High TRIG greater than 500 mg/dL Very highStandard traceable to the Center for Disease Conrtrol and Prevention (CDC) test method.Troponin I High Sensitivityon 07-06-2024 Troponin I High Dqbgfksuohm712Oet scale high0-15The [facility] Comment on above:Result Comment: Critical Result : Called to and read back by: SILVER GRACIA at: 07/06/2024 11:31:26 by:JOSSY The Troponin units of report have been changed to meet the Chest Pain Accreditation requirement, element EC5.M1l2. Troponin units are changed from pg/ml to ng/L. Also, the decimal is removed and results are in whole numbers. PERFORMED BY: [place] [address] PATHOLOGIST [employer] BEN MARISCAL M.D.Performed By: #### HS TROP, MG, CBC, BMP, LIPID #### [address] [address] USATroponin I High Pxfpuledwpf441Vhn scale high0-15The [facility]ardee Physician GroupComment on above:Result Comment: Critical Result : Called to and read back by: AKUA MCINTOSH at: 07/06/2024 08:28:04 by:[id number] The Troponin units of report have been changed to meet the Chest Pain Accreditation requirement, element EC5.M1l2. Troponin units are changed from pg/ml to ng/L. Also, the decimal is removed and results are in whole numbers. PERFORMED BY: [address] [address] PATHOLOGIST [employer] BEN MARISCAL M.D.Performed By: #### HS TROP, MG, CBC, BMP, LIPID #### [address] [address] USATroponin I.cardiac [Mass/volume] in Serum or Plasma by Detection limit <= 0.01 ng/Ordered By: Emerald Baker on 90-12-7233Vezntfcd I.cardiac DL <= 0.01 ng/mL [Mass/Vol]Troponin I.cardiac [Mass/volume] in Serum or Plasma by Detection limit <= 0.01 ng/Critically [address] StreetComment on above:Critical Result : Called to and read back by: SILVER GRACIA at: 07/06/2024 11:31:26 by:RGThe Troponin units of report have been changed to meet the Chest Pain Accreditation requirement, element EC5.M1l2. Troponin units are changed from pg/ml to ng/L. Also, the decimal is removed and results are in whole numbers.Urea nitrogen [Mass/volume] in Serum or Plasma Ordered By: Akua Ellsworth on 29-98-3637Rthn nitrogen [Mass/Vol]Urea nitrogen [Mass/volume] in Serum or Plasma12-09Ohio[facility] Wert HospitalWBC Auto (Bld) [#/Vol]Ordered By: Akua Ellsworth on 80-38-5237WHX (Bld) [#/Vol]Leukocytes [#/volume] in Blood by Automated count3.8-11.6FSt. Rita's Hospital Anti-Xa UF Heparinon 38-21-0349Hyfd-Xa UF Heparin0.04 [IU]/mLLow0.30-0.70The [facility] Physician GroupComment on above:Result Comment: Use the aPTT protocol when triglycerides are > 800 mg/dL, total bilirubin is > 20 mg/dL and/or patient has received a DOAC, Fondaparinux or LMWH within 72 hours AND baseline anti-Xa level is > 0.7 units/mL PERFORMED BY: [place] [address] PATHOLOGIST [employer] BEN MARISCAL M.D.Performed By: #### HS TROP, MG, CBC, BMP, LIPID #### [place] [id number] USAECG 12 lead ECGon 26-97-8890LBQ 12 lead ECGDUNLAP [place] [address] Electrocardiograph Report Signed Patient: Keely Bragg MR#: [id number] : 1955 Acct:[id number] Age/Sex: 68 / F ADM Date: 07/05/24 Loc: Room: [address] [place] [address] Type: ADM IN Attending Dr: Christina Julien [...] previous ECGs available Confirmed by Angel Gutierrez ([id number]) on 07/06/2024 2:54:30 PM Referred By: Electronically Signed By: Angel Gutierrez Transcribed By: MUS Signed By Angel Gutierrez MD 07/06/24 1454NoHighlands-Cashiers Hospital Physician GroupINR in Platelet poor plasma by Coagulation assayOrdered By: Akua Ellsworth on 59-29-3510DVQ Coag (PPP) [Relative time]INR in Platelet poor plasma by Coagulation assayOhiohealth Van Wert HospitalComment on above:INR Therapeutic Range A) Pre- and Peroperative OAT started two weeks before surgery. NOT HIP SURGERY: 1.5 - 2.5 HIP SURGERY: 2 - 3B) Primary and secondary prevention of venous THROMBOSIS: 2 - 3C) Active venous thrombosis, pulmonary embolismand prevention of recurrent venous thrombosis: 2 - 3D) Prevention of arterial thromboembolismincluding patients with mechanical heart valves: 3 - 4.5Partial Thromboplastin Timeon 75-74-2079mDMM Coag (Bld) [Time]33.7 eDibmek58.1-36.5The [facility] Physician GroupComment on above:Result Comment: A hematocrit value greater than 55% may lead to inaccurate results in coagulation testing. Patients having hematocrit values >55% require a special collection tube for coagulation studies. Please contact the laboratory at [phone] for redraw instructions.Performed By: #### HS TROP, MG, CBC, BMP, LIPID #### [facility] [address] [place] [address] USAProthrombin Time INRon 02-30-3553YBN Coag (PPP) [Relative time]1.0 {INR}NormalThe [facility]ardee Physician GroupComment on above:Result Comment: INR Therapeutic Range A) Pre- and [...] patients with mechanical heart valves: 3 - 4.5Performed By: #### HS TROP, MG, CBC, BMP, LIPID #### [facility] [address] [place] [address] USAPT Coag (PPP) [Time]11.0 sNormal9.0-12.9The [facility] Medical CenterComment on above:Result Comment: A hematocrit value greater than 55% may lead to inaccurate results in coagulation testing. Patients having hematocrit values >55% require a special collection tube for coagulation studies. Please contact the laboratory at [phone] for redraw instructions.Performed By: #### HS TROP, MG, CBC, BMP, LIPID #### [facility] [address] [place] [address] USAProthrombin time (PT)Ordered By: Akua Ellsworth on 07-05-2024 PT Coag (PPP) [Time]Prothrombin time (PT)9.0-12.9Ohio[facility] Wert HospitalComment on above:A hematocrit value greater than 55% may lead to inaccurate results in coagulation testing. Patientshaving hematocrit values >55% require a special collection tube for coagulation studies. Please contact the laboratory at [phone] for redraw instructions.Troponin I High Sensitivityon 57-76-1020Iygkxuyt I High Yfjjkjtcebh857Bil scale high0-15The [facility] Physician GroupComment on above:Result Comment: Critical Result : Called to and read back by: NAHID CHANDRA at: 07/06/2024 01:10:46 by: The Troponin units of report have been changed to meet the Chest Pain Accreditation requirement, element EC5.M1l2. Troponin units are changed from pg/ml to ng/L. Also, the decimal is removed and results are in whole numbers. PERFORMED BY: [facility] [address] [place] [address] PATHOLOGIST [employer] BEN MARISCAL M.D.Performed By: #### HS TROP, MG, CBC, BMP, LIPID #### [facility] [address] [place] [address] USAaPTT in Platelet poor plasma by Coagulation assayOrdered By: Akua Ellsworth on 37-25-4281eNUE Coag (PPP) [Time]Activated partial thromboplastin time (aPTT) in platelet poor plasma by coagulation a25.1-36.5 [facility] HospitalComment on above:A hematocrit value greater than 55% may lead to inaccurate results in coagulation testing. Patientshaving hematocrit values >55% require a special collection tube for coagulation studies. Please contact the laboratory at [phone] for redraw instructions. Ambulatory Visit Summaryon 35-69-5222Cpdpvualcy Visit SummaryAmbulatory Visit Summary KEELY BRAGG :1955 Visit Date:04/11/2024 Ambulatory Visit Instructions Your Diagnosis Non-smoker BMI 50.0-59.9, adult, Body mass index [BMI] 50.0-59.9, adult Morbid obesity with BMI of 50.0-59.9, adult Your Care Team Attending Physician - Le Montano Primary Care Physician - Le Montano This Is Your Medications List alprazolam (alprazolam 0.25 mg Tab) bisoprolol-hydrochlorothiazide (bisoprolol-hydrochlorothiazide 5 mg-6.25 mg Tab) ropinirole (ropinirole 0.25 mg Tab) sertraline (sertraline 100 mg Tab) Procedures Performed Colonoscopy (05/18/2013), Appendectomy, Arthroscopy, Biopsy of breast, Cataracts, LEXI BSO - Total abdominal hysterectomy and bilateral salpingo-oophorectomy. What to do next Scheduled Follow-Up Appointments Thursday 8:20 AM EST With: Le Montano Where: [address] [address]- Medications What How Much When Instructions Unchanged alprazolam (alprazolam 0.25 mg Tab) 0.25 Milligram By Mouth Every day prn Dx F41.9 Unchanged bisoprolol-hydrochlorothiazide (bisoprolol-hydrochlorothiazide 5 mg- 6.25 mg Tab) 1 Tablets By Mouth Every [...] you for choosing us for your care. [facility] Medicine Office/Clinic Noteon 96-86-1835Sxqxfm Medicine Office/Clinic NoteS[facility]ulding [facility] Office/Clinic Note HPI Staff Pt presents [...] for 7 day(s), 14 tab(s), Refill(s) 0, [employer] #72, 153, cm, 04/11/24 8:35:00 EST, Height/Length [...] mg-125 mg Tab, 1 tab(s), Oral, q12hr bisoprolol-hydrochlorothiazide 5 mg-6.25 mg Tab, 1 tab(s), Oral, [...] virus vaccine, inactivated 02/25/2022 Recorded SARS-CoV-2 (COVID-19) mRNAMUL.ORD![id number] 02/25/2022 Recorded SARSCoV2 mRNA(tczhnenmb-kbhy-ahhjve) vac 10/08/2021 Recorded influenza virus vaccine, inactivated 05/20/2021 Recorded SARS-CoV-2 (COVID-19) mRNA BNT-162b2 vax 02/14/2021 Recorded SARS-CoV-2 (COVID-19) mRNA BNT-162b2 vax 08/04/2020 Recorded SARS-CoV-2 (COVID-19) mRNA BNT-162b2 vax 07/14/2020 Recorded pneumococcal 13-valent vaccine 03/14/2020 Recorded influenza virus vaccine, inactivated 03/14/2020 Recorded zoster vaccine, inactivated 06/23/2019 Recorded influenza virus vaccine, inactivated 05/31/2019 Recorded zoster vaccine, inactivated 03/28/2019 [facility] Comment on above:Result Comment: Electronically Signed By: Le Montano.sandra\Date and Time Signed: 04/11/24 12:35 ESTNo [facility] 01-25-2024 Type of biopsy: tangential Informed consent: discussed [...] taken yes Amount of lidocaine used: 0.3 [facility] Type of biopsy: tangential Informed consent: discussed [...] taken yes Amount of lidocaine used: 0.5 [facility] AUTO DIFFon 90-47-2398POZI #0.0 103/ulNormal0.0-0.1The [facility] HospitalComment on above: Performed By: #### CBC #### [facility] [address] [place] [address] Dr. Nuha Johnsonphils/100 WBC (Bld)0.5 %Normal0.2-2.0[facility] Comment on above:Performed By: #### CBC #### [facility] [address] [place] [address] Dr. Yilan ChangEO #0.2 103/ulNormal0.0-0.7The [facility] HospitalComment on above: Performed By: #### CBC #### [facility] [address] [place] [address] Dr. Nuha Georgesosinophils/100 WBC (Bld)3.3 %Normal0.9-7.0The [facility] Comment on above:Performed By: #### CBC #### [facility] [address] [place] [address] Dr. Nuha Georgesrythrocyte distribution width (RBC) [Ratio]13.6 %Clyzpe30.0-15.0 The [facility] HospitalComment on above:Performed By: #### CBC #### [facility] [address] [place] [address] Dr. Nuha MarinelliHematocrit (Bld) [Volume fraction]41.0 %Ygspnk13.0-48.0The [facility] HospitalComment on above:Performed By: #### CBC #### [facility] [address] [place] [address] Dr. Nuha MarinelliHemoglobin (Bld) [Mass/Vol]13.6 g/rLPtvyde66.0-16.0The [facility] HospitalComment on above:Performed By: #### CBC #### [facility] [address] [place] [address] Dr. Nuha Preciado #0.03 10e3/ulNormal0.00-0.03The [facility] HospitalComment on above:Performed By: #### CBC #### [facility] [address] [place] [address] Dr. Nuha Preciado %0.4 %Normal0.0-0.5The [facility] HospitalComment on above: Performed By: #### CBC #### [facility] [address] [place] [address] Dr. Nuha FelixH #2.3 103/ulNormal1.2-3.8The [facility] HospitalComment on above:Performed By: #### CBC #### [facility] [address] [place] [address] Dr. Nuha Westbrookmphocytes/100 WBC (Bld)30.7 %Gzewjw74.5-60.0The [facility] HospitalComment on above:Performed By: #### CBC #### [facility] [address] [place] [address] Dr. Nuha Hylton DIFF REQNONormalThe [facility] HospitalComment on above: Performed By: #### CBC #### [facility] [address] [place] [address] Dr. Nuha Miguel (RBC) [Entitic mass]28.0 kvWcgxur45.7-34.0The [facility] HospitalComment on above:Performed By: #### CBC #### [facility] [address] [place] [address] Dr. Nuha Miguel (RBC) [Mass/Vol]33.2 g/hVKpnguf03.9-35.2The [facility] HospitalComment on above:Performed By: #### CBC #### [facility] [address] [place] [address] Dr. Nuha Miguel (RBC) [Entitic vol]84.5 nXPflvaq53.0-99.0The [facility] HospitalComment on above:Performed By: #### CBC #### [facility] [address] [place] [address] Dr. Nuha Vogel #0.5 103/ulNormal0.3-0.8The [facility] HospitalComment on above:Performed By: #### CBC #### [facility] [address] [place] [address] Dr. Nuha Devlinocytes/100 WBC (Bld)6.8 %Normal1.7-12.0The [facility] Comment on above:Performed By: #### CBC #### [facility] [address] [place] [address] Dr. Nuha Orlando #4.3 103/ulNormal1.4-6.5The [facility] HospitalComment on above:Performed By: #### CBC #### [facility] [address] [place] [address] Dr. Nuha Randallutrophils/100 WBC (Bld)58.3 %Xgcodm50.0-75.0The [facility] HospitalComment on above:Performed By: #### CBC #### [facility] [address] [place] [address] Dr. Nuha Monteslet mean volume (Bld) [Entitic vol]9.2 fLCritically low 9.5-13.5The [facility] HospitalComment on above:Performed By: #### CBC #### [facility] [address] [place] [address] Dr. Nuha MarinelliPLT209 103/gxMnnmxx702-243Ysh [facility] HospitalComment on above: Performed By: #### CBC #### [facility] [address] [place] [address] Dr. Nuha MarinelliRBC4.85 106/ulNormal4.20-5.40The [facility] HospitalComment on above:Performed By: #### CBC #### [facility] [address] [place] [address] Dr. Nuha MarinelliWBC7.4 103/ulNormal4.0-11.0The [facility] HospitalComment on above: Performed By: #### CBC #### [facility] [address] [place] [address] Dr. Nuha MarinelliLIPID PROFILEon 23-54-2454XFJM-HDL RATIO NORMSEE BELOWNoEast Ohio Regional HospitalComment on above:Result Comment: 3.3 - 4.4 LOW RISK 4.4 - 7.1 AVERAGE RISK 7.1 - 11.0 MODERATE RISK >11.0 HIGH RISKPerformed By: #### BMP, LIPID #### [facility] [address] [place] [address] Dr. Nuha MarinelliCholesterol [Mass/Vol]183 mg/dLNormal<=200The [facility] Comment on above:Performed By: #### BMP, LIPID #### [facility] [address] [place] [address] Dr. Nuha MarinelliCholesterol in HDL [Mass/Vol]47 mg/qJWcvpfb23-83GjnWayne HealthCare Main Campusment on above:Performed By: #### BMP, LIPID #### [facility] [address] [place] [address] [address] Nuha Fletcheresterol in LDL [Mass/Vol]102.8 mg/dLAccess Hospital DaytonComment on above:Performed By: #### BMP, LIPID #### [facility] [address] [place] [address] Dr. Nuha Wong.total/Cholesterol in HDL [Mass ratio]3.9 {ratio} NormalThe [facility] HospitalComforest view hospital on above:Performed By: #### BMP, LIPID #### [facility] [address] [place] [address] Dr. Nuha Haddad NORMAL> or = 60 mg/dl - LOW CARDIOVASCULAR RISK <40 mg/dl - HIGH CARDIOVASCULAR RISKAccess Hospital DaytonComment on above:Performed By: #### BMP, LIPID #### [facility] [address] [place] [address] Dr. Nuha Stringer CALC NORMALSEE BELOWAccess Hospital DaytonComment on above:Result Comment: <100 mg/dl OPTIMAL 100 - 129 mg/dl NEAR OR ABOVE OPTIMAL 130 - 159 mg/dl BORDERLINE HIGH 160 - 189 mg/dl HIGH >190 mg/dl VERY HIGH Performed By: #### BMP, LIPID #### [facility] [address] [place] [address] Dr. Nuha MarinelliTriglyceride [Mass/Vol]166 mg/dLCritically high<=150The [facility] HospitalComforest view hospital on above:Performed By: #### BMP, LIPID #### [facility] [address] [place] [address] Dr. Nuha PearceLDL CALC33.2 mg/dLAccess Hospital DaytonComment on above: Performed By: #### BMP, LIPID #### [facility] [address] [place] [address] Dr. Nuha MarinelliMG MAMM SCREEN 3D CARSON CADon 01-12-6372SW MAMM SCREEN 3D CARSON CAD Patient: KEELY BRAGGJp Exam Date: 05/12/2022 : 1955 Gender:F Ordering : DR JOY LEAL . Admission #: [id number] Family : Order #: [id number] CLICK HERE TO VIEW EXAM RADIOLOGY REPORT [...] liver cancer at age 4. LOCATION: [facility] BREAST COMPOSITION: Heterogeneously dense,which may obscure [...] by: Yossi Rose MD on 05/13/2022 at 11:15NormalCoshocton Regional [facility] Center PROF CHEM 8 (BAS METB)on 39-79-7325Omgii gap [Moles/Vol]12.1 mmol/LNormalCoshocton Regional Medical CenterComment on above:Performed By: #### BMP, LIPID #### [facility] [address] [place] [address] Dr. Nuha MarinelliCalcium [Mass/Vol]9.3 mg/dLNormal8.5-10.1[facility] Comment on above:Performed By: #### BMP, LIPID #### [facility] [address] [place] [address] Dr. Nuha MarinelliChloride [Moles/Vol]99 mmol/LZbobzg51-278NebCoshocton Regional Medical Center Comment on above:Performed By: #### BMP, LIPID #### [facility] [address] [place] [address] [address] Nuha MarinelliCO2 [Moles/Vol]29.7 mmol/SWeyoas63.0-32.0[facility] Comment on above:Performed By: #### BMP, LIPID #### [facility] [address] [address] [address] Nuha MarinelliCreatinine [Mass/Vol]0.77 mg/dLNormal0.55-1.02The [facility] HospitalComment on above:Performed By: #### BMP, LIPID #### [facility] [address] [address] [address] Nuha GeorgesGFR-AF ESTONIAN>60Normal>=60The [facility] HospitalComment on above:Performed By: #### BMP, LIPID #### [facility] [address] [address] [address] Nuha GeorgesGFR-NON AF ESTONIAN>60Normal>=60The [facility] HospitalComment on above:Performed By: #### BMP, LIPID #### [facility] [address] [address] [address] Nuha MarinelliGlucose [Mass/Vol]112 mg/dLCritically dify84-426Mag [facility] HospitalComment on above:Performed By: #### BMP, LIPID #### [facility] [address] [address] [address] Nuha MarinelliPotassium [Moles/Vol]3.8 mmol/LNormal3.5-5.1[facility] Comment on above:Performed By: #### BMP, LIPID #### [facility] [address] [address] [address] Nuha MarinelliSodium [Moles/Vol]137 mmol/FNhnzoe500-949Urj [facility] Comment on above:Performed By: #### BMP, LIPID #### [facility] [address] [address] [address] Nuha MarinelliUrea nitrogen [Mass/Vol]15.0 mg/dLNormal7.0-18.0The [facility] HospitalComment on above:Performed By: #### BMP, LIPID #### [facility] [address] [address] [address] Nuha MarinelliUrea nitrogen/Creatinine [Mass ratio]19.5 mg/mgNoalThe [facility] HospitalComment on above:Performed By: #### BMP, LIPID #### [facility] [address] [address] [address] Nuha Ji AUTO DIFFon 31-82-7883JCPP #0.0 103/ulNormal0.0-0.1The [facility] HospitalComment on above:Performed By: #### CBC #### [facility] [address] [place] [address] Dr. Nuha MarinelliBasophils/100 WBC (Bld)0.6 %Normal0.2-2.0[facility] Comment on above:Performed By: #### CBC #### [facility] [address] [place] [address] Dr. Nuha GeorgesO #0.3 103/ulNormal0.0-0.7The [facility] HospitalComment on above: Performed By: #### CBC #### [facility] [address] [place] [address] Dr. Nuha Georgesosinophils/100 WBC (Bld)4.3 %Normal0.9-7.0[facility] Comment on above:Performed By: #### CBC #### [facility] [address] [place] [address] Dr. Nuha Georgesrythrocyte distribution width (RBC) [Ratio]13.6 %Ahconf63.0-15.0 [facility] HospitalComment on above:Performed By: #### CBC #### [facility] [address] [place] [address] Dr. Nuha MarinelliHematocrit (Bld) [Volume fraction]39.8 %Sigjvg72.0-48.0The [facility] HospitalComment on above:Performed By: #### CBC #### [facility] [address] [place] [address] Dr. Nuha MarinelliHemoglobin (Bld) [Mass/Vol]13.0 g/bLRkhqac18.0-16.0The [facility] HospitalComment on above:Performed By: #### CBC #### [facility] [address] [place] [address] Dr. Nuha Preciado #0.02 10e3/ulNormal0.00-0.03The [facility] HospitalComment on above:Performed By: #### CBC #### [facility] [address] [place] [address] Dr. Nuha Preciado %0.3 %Normal0.0-0.5The [facility] HospitalComment on above: Performed By: #### CBC #### [facility] [address] [place] [address] Dr. Nuha Dickerson #2.4 103/ulNormal1.2-3.8The [facility] HospitalComment on above:Performed By: #### CBC #### [facility] [address] [place] [address] Dr. Nuha Felixhocytes/100 WBC (Bld)36.5 %Vsqrcx28.5-60.0The [facility] HospitalComment on above:Performed By: #### CBC #### [facility] [address] [place] [address] Dr. Nuha BrooksUAL DIFF REQNONormalThe [facility] HospitalComment on above: Performed By: #### CBC #### [facility] [address] [place] [address] Dr. Nuha Miguel (RBC) [Entitic mass]28.6 gsErdfyq41.7-34.0The [facility] HospitalComment on above:Performed By: #### CBC #### [facility] [address] [place] [address] Dr. Nuha Miguel (RBC) [Mass/Vol]32.7 g/pKYuuvxr14.9-35.2The [facility] HospitalComment on above:Performed By: #### CBC #### [facility] [address] [place] [address] Dr. Nuha Miguel (RBC) [Entitic vol]87.5 mPQvosbf44.0-99.0The [facility] HospitalComment on above:Performed By: #### CBC #### [facility] [address] [place] [address] Dr. Nuha Vogel #0.6 103/ulNormal0.3-0.8The [facility] HospitalComment on above:Performed By: #### CBC #### [facility] [address] [place] [address] Dr. Nuha Devlinocytes/100 WBC (Bld)9.0 %Normal1.7-12.0[facility] Comment on above:Performed By: #### CBC #### [facility] [address] [place] [address] Dr. Nuha Orlando #3.3 103/ulNormal1.4-6.5The [facility] HospitalComment on above:Performed By: #### CBC #### [facility] [address] [place] [address] Dr. Nuha Randallutrophils/100 WBC (Bld)49.3 %Gyoxra88.0-75.0The [facility] HospitalComment on above:Performed By: #### CBC #### [facility] [address] [place] [address] Dr. Nuha Moody mean volume (Bld) [Entitic vol]9.3 fLCritically low 9.5-13.5The [facility] HospitalComment on above:Performed By: #### CBC #### [facility] [address] [place] [address] Dr. Nuha GallowayT181 103/xoGtbjmb993-959Oao [facility] HospitalComment on above: Performed By: #### CBC #### [facility] [address] [place] [address] Dr. Nuha BarksdaleC4.55 106/ulNormal4.20-5.40The [facility] HospitalComment on above:Performed By: #### CBC #### [facility] [address] [place] [address] Dr. Nuha MarinelliWBC6.7 103/ulNormal4.0-11.0[facility] on above: Performed By: #### CBC #### [facility] [address] [address] [address] Nuha MelloID PROFILEon 49-07-1184MXXN-HDL RATIO NORMSMercy Health [facility] on above:Result Comment: 3.3 - 4.4 LOW RISK 4.4 - 7.1 AVERAGE RISK 7.1 - 11.0 MODERATE RISK >11.0 HIGH RISKPerformed By: #### LIPID, CMP, TSH #### [facility] [address] [address] [address] Nuha MarinelliCholesterol [Mass/Vol]219 mg/dLCritically high<=200The [facility] on above:Performed By: #### LIPID, CMP, TSH #### [facility] [address] [place] [address] Dr. Nuha Fletcheresterol in HDL [Mass/Vol]47 mg/iZBpdkji85-20Jcj [facility] HospitalCom[facility] on above:Performed By: #### LIPID, CMP, TSH #### [facility] [address] [address] [address] Nuha MarinelliCholesterol in LDL [Mass/Vol]139.2 mg/dLHarrison Community Hospital on above:Performed By: #### LIPID, CMP, TSH #### [facility] [address] [address] [address] Nuha Fletcherestergege.total/Cholesterol in HDL [Mass ratio]4.7 {ratio} NormalThe [facility] on above:Performed By: #### LIPID, CMP, TSH #### [facility] [address] [address] [address] Nuha Haddad NORMAL> or = 60 mg/dl - LOW CARDIOVASCULAR RISK <40 mg/dl - HIGH CARDIOVASCULAR RISKHarrison Community Hospital on above:Performed By: #### LIPID, CMP, TSH #### [facility] [address] [address] [address] Nuha MarinelliLDL CALC NORMALSEE BELOWAccess Hospital DaytonComment on above:Result Comment: <100 mg/dl OPTIMAL 100 - 129 mg/dl NEAR OR ABOVE OPTIMAL 130 - 159 mg/dl BORDERLINE HIGH 160 - 189 mg/dl HIGH >190 mg/dl VERY HIGH Performed By: #### LIPID, CMP, TSH #### [facility] [address] [address] [address] Nuha MarinelliTriglyceride [Mass/Vol]164 mg/dLCritically high<=150The [facility] on above:Performed By: #### LIPID, CMP, TSH #### [facility] [address] [address] [address] Nuha MarinelliVLDL CALC32.8 mg/dLHarrison Community Hospital on above: Performed By: #### LIPID, CMP, TSH #### [facility] [address] [place] [address] Dr. Nuha Morin 14(COMP METB)on 27-34-9445Tumddxh [Mass/Vol]3.7 g/dLNormal 3.4-5.0The [facility] on above:Performed By: #### LIPID, CMP, TSH #### [facility] [address] [place] [address] Dr. Nuha MarinelliAlbumin/Globulin [Mass ratio]1.0 {ratio}NormalThe [facility] on above:Performed By: #### LIPID, CMP, TSH #### [facility] [address] [place] [address] Dr. Nuha Eaton [Catalytic activity/Vol]79 U/QKeqibv54-566Wlw [facility] on above:Performed By: #### LIPID, CMP, TSH #### [facility] [address] [address] [address] Nuha Lopez [Catalytic activity/Vol]32 U/EMmtlvd98-37Qpn [facility] on above:Performed By: #### LIPID, CMP, TSH #### [facility] [address] [place] [address] Dr. Nuha Olsen gap [Moles/Vol]12.6 mmol/LNormalThe [facility] Comment on above:Performed By: #### LIPID, CMP, TSH #### [facility] [address] [address] [address] Nuha MarinelliAST [Catalytic activity/Vol]16 U/IOzkrcy36-04Bea [facility] HospitalComment on above:Performed By: #### LIPID, CMP, TSH #### [facility] [address] [address] [address] Nuha MarinelliBilirubin [Mass/Vol]0.5 mg/dLNormal0.2-1.0[facility] Comment on above:Performed By: #### LIPID, CMP, TSH #### [facility] [address] [place] [address] Dr. Nuha MarinelliCalcium [Mass/Vol]8.9 mg/dLNormal8.5-10.1[facility] Comment on above:Performed By: #### LIPID, CMP, TSH #### [facility] [address] [place] [address] Dr. Nuha MarinelliChloride [Moles/Vol]102 mmol/WBffevo80-786Qww [facility] Comment on above:Performed By: #### LIPID, CMP, TSH #### [facility] [address] [place] [address] Dr. Nuha MarinelliCO2 [Moles/Vol]27.7 mmol/TEnuuam19.0-32.0[facility] Comment on above:Performed By: #### LIPID, CMP, TSH #### [facility] [address] [place] [address] Dr. Nuha MarinelliCreatinine [Mass/Vol]0.90 mg/dLNormal0.55-1.02The [facility] HospitalComment on above:Performed By: #### LIPID, CMP, TSH #### [facility] [address] [place] [address] Dr. Nuha GeorgesGFR-AF ESTONIAN>60Normal>=60The [facility] HospitalComment on above:Performed By: #### LIPID, CMP, TSH #### [facility] [address] [place] [address] Dr. Nuha GeorgesGFR-NON AF ESTONIAN>60Normal>=60The [facility] HospitalComment on above:Performed By: #### LIPID, CMP, TSH #### [facility] [address] [address] [address] Nuha MarinelliGlobulin (S) [Mass/Vol]3.7 g/dLNormJ.W. Ruby Memorial HospitalComment on above:Performed By: #### LIPID, CMP, TSH #### [facility] [address] [address] [address] Nuha MarinelliGlucose [Mass/Vol]108 mg/dLCritically jode43-977Aqg [facility] HospitalComment on above:Performed By: #### LIPID, CMP, TSH #### [facility] [address] [place] [address] Dr. Nuha MarinelliPotassium [Moles/Vol]4.3 mmol/LNormal3.5-5.1The [facility] Comment on above:Performed By: #### LIPID, CMP, TSH #### [facility] [address] [place] [address] Dr. Nuha MarinelliProtein [Mass/Vol]7.4 g/dLNormal6.4-8.2[facility] Comment on above:Performed By: #### LIPID, CMP, TSH #### [facility] [address] [place] [address] Dr. Nuha MarinelliSodium [Moles/Vol]138 mmol/JCgeavz492-879Tvv [facility] Comment on above:Performed By: #### LIPID, CMP, TSH #### [facility] [address] [place] [address] Dr. Nuha MarinelliUrea nitrogen [Mass/Vol]18.0 mg/dLNormal7.0-18.0The [facility] HospitalComment on above:Performed By: #### LIPID, CMP, TSH #### [facility] [address] [place] [address] Dr. Nuha MarinelliUrea nitrogen/Creatinine [Mass ratio]20.0 mg/mgNoEast [place] Regional HospitalComment on above:Performed By: #### LIPID, CMP, TSH #### [facility] [address], [place] [address] Dr. Nuha MarinelliTS 94-77-4791IVN9.735 uIU/mLNormal0.358-3.740The [facility] HospitalComment on above:Performed By: #### LIPID, CMP, TSH #### [facility] [address], [place] [address] Dr. Nuha Marinelli Vital Signs Date TimeVital SignValuePerforming NsuapcfnjVdymhvqa80-28-1244 09:35-0500 Diastolic blood kawfutnu39 mm[Hg]Juan Domingo MD Work Phone: 1(466) [phone]oMluymm90-46-4960 09:35-0500Heart rate65 /Erasto Domingo MD Work Phone: 1(207) [phone]pbzGrycve22-00-8928 09:35-0500Systolic blood pressure 171 mm[Hg]Juan Domingo MD Work Phone: 1(649) [phone]16426VxqtThjnvr07-48-3273 09:34-0500Body .5 cm Juan Domingo MD Work Phone: 1(963) [phone]kXwihjw96-71-3321 09:34-0500Body mass index (BMI) [Ratio]48.47 kg/a8EwrwlpJuan Domingo MD Work Phone: 1(173) [phone]iFvdcbr21-75-5449 09:34-0500Body .2 kg Juan Domingo MD Work Phone: 1(243) [phone]29VsswJgfwwf50-90-8564 09:27-0400Diastolic blood qxipnwyr44 mm[Hg]Juan Domingo MD Work Phone: 1(611) [phone]pwrIrixeg17-94-3896 09:27-0400Systolic blood pressure 138 mm[Hg]Juan Domingo MD Work Phone: 1(488) [phone]pecXwbrnn55-59-2776 09:26-0400Heart rate82 /Erasto Domingo MD Work Phone: 1(842) [phone]leuIbufrh94-44-4006 09:04-0400Body viammo514.5 cm [facility]04-07-2025 09:04-0400Body mass index (BMI) [Ratio]48.14 kg/x7ZsvuucvjLakeHealth [facility]04-07-2025 09:04-0400Body dmmezn975.39 kgChauBaptist Memorial Hospital04-07-2025 09:04-0400Diastolic blood mm[Hg][facility]04-07-2025 09:04-0400Heart rate67 /minChaucharles [facility]04-07-2025 09:04-0400Systolic blood nizrtoro992 mm[Hg][facility]03-24-2025 09:55-0400Body ihrozy670.5 cm Troy Washington MD Work Phone: [phone])[address]03-24-2025 09:55-0400 Body mass index (BMI) [Ratio]48.29 kg/a1MzjzqzuTroy Washington MD Work Phone: 1([phone])[address]03-24-2025 09:55-0400 Body .75 kgTroy Washington MD Work Phone: 1(522)[address]03-24-2025 09:55-0400 Diastolic blood bymepwto52 mm[Hg]Troy Washington MD Work Phone: 3([phone])[address]03-24-2025 09:55-0400 Heart rate76 /Thom Washington MD Work Phone: [phone])[address]03-24-2025 09:55-0400 Systolic blood ynlrszti250 mm[Hg]Troy Washington MD Work Phone: [phone])[address]02-20-2025 10:55-0500 Diastolic blood obzeoevp88 mm[Hg]Le GALICIA Work Phone: [facility]02-20-2025 10:55-0500 Heart rate66 /minJodi Cristiane ASSISTED SALES REPRESENTATIVE-C Work Phone: 1(768)[address]02-20-2025 10:55-0500 Respiratory rate16 /minJodi Cristiane ASSISTED SALES REPRESENTATIVE-C Work Phone: [phone])[address] [place], [place] 5340302-20-2025 10:55-0500 SaO2% (BldA) [Mass fraction]98 %Le Cristiane ASSISTED SALES REPRESENTATIVE-C Work Phone: 1(295)[address] [place], [place] 5340302-20-2025 10:55-0500 Systolic blood labwvibr140 mm[Hg]Le Cristiane ASSISTED SALES REPRESENTATIVE-C Work Phone: [phone])[address] [place], [place] 5340302-20-2025 06:55-0500 Body hzegkg073.48 cmJodi Cristiane ASSISTED SALES REPRESENTATIVE-C Work Phone: [phone])[address] [place], [place] 5340302-20-2025 06:55-0500 Body oonppcgznuf93.4 [degF]Le Cristiane ASSISTED SALES REPRESENTATIVE-C Work Phone: [phone] [place], [place] 5340302-20-2025 06:55-0500 Body chiufm850.9 kgJodi Cristiane ASSISTED SALES REPRESENTATIVE-C Work Phone: [phone])[address] [place], [place] 5340302-19-2025 16:45-0500 Body cqeehwddgmq96.6 [degF]Le Cristiane ASSISTED SALES REPRESENTATIVE-C Work Phone: 1([phone])[address] [place], [place] 5340302-19-2025 16:45-0500 Diastolic blood assyncni13 mm[Hg]Le Cristiane ASSISTED SALES REPRESENTATIVE-C Work Phone: [phone])[address]02-19-2025 16:45-0500 Heart rate70 /minJodi Cristiane ASSISTED SALES REPRESENTATIVE-C Work Phone: 1(654)[address] [place], [place] 5340302-19-2025 16:45-0500 Respiratory rate18 /minJodi Cristiane ASSISTED SALES REPRESENTATIVE-C Work Phone: 1([phone])[address] [place], [place] 5340302-19-2025 16:45-0500 SaO2% (BldA) [Mass fraction]98 %Le Cristiane ASSISTED SALES REPRESENTATIVE-C Work Phone: [facility]02-19-2025 16:45-0500 Systolic blood vhiovzrm97 mm[Hg]Le Cristiane ASSISTED SALES REPRESENTATIVE-C Work Phone: [facility]02-19-2025 07:01-0500 Body umjrpx004.6 kgJodi Cristiane ASSISTED SALES REPRESENTATIVE-C Work Phone: [facility]02-18-2025 23:50-0500 Body cijhen721.48 cmJodi Cristiane ASSISTED SALES REPRESENTATIVE-C Work Phone: [facility] Encounters Encounter DateEncounter TypeCare ProviderFacilityStart: 67-56-0516adndlkgtkmDqce L SchwabFacility:[facility] BellevueStart: 03-28-2025 End: 83-86-3404unkuhbfbxwVsix L SchwabFacility:[facility] BellevueStart: 03-23-[address] [facility]: 03-21-2025 End: 06-06-9979ybxjevmpnrCbjb L SchwabFacility:[facility]Start: 03-20-2025 End: 27-37-8240Wgcpfb outpatient visit 40 minutesJuan Domingo MD Work Phone: [facility] [place] [facility] Vascular PhysiciansComment on above:Elevated BP without diagnosis of hypertension (Primary Dx); Atrial flutter (HCC); AVNRT (AV dejuan re-entry tachycardia); Pre-operative cardiovascular examinationStart: 03-20-2025 End: 85-95-6634Swgccdf encounter statusJuan Domingo MD Work Phone: [facility]HealthStart: 03-20-2025 End: 48-53-7203jgobmhjmbnSKLFYG Y. FUMinn[facility] Health AmbulatoryStart: 03-20-2025 End: 41-83-5752Uukkdleyd for preprocedural cardiovascular examinationEUMARLENE [facility] AmbulatoryStart: 03-14-2025 End: 26-04-0150Uqyyes OnlyJuan Domingo MD Work Phone: [facility] [place] [facility] Vascular PhysiciansComment on above:Atrial flutter (HCC) (Primary Dx); AVNRT (AV dejuan re-entry tachycardia)Start: 02-22-2025 End: 44-88-5738qruxykobgdTVRPAQ A LEHMANNFacility:[facility] BellevueStart: 01-02-2025 End: 82-11-1818faqdspqkmsKagd L SchwabFacility:[facility] BellevueStart: 09-29-2024 End: 41-03-7852WjzaacDrhxap Y. Fu MD Work Phone: [facility] [place] [facility] & Vascular PhysiciansComment on above:Medication RefillStart: 09-23-2024 End: 14-21-1855Szzste outpatient new 45 minutesJodi Glendy H[facility]ron [facility] Work Phone: [facility] [place] [facility] & Vascular PhysiciansComment on above:NSTEMI (non-ST elevated myocardial infarction) (HCC); Hypertension, unspecified type; Atrial flutter (HCC)Start: 09-23-2024 End: 85-84-9132qzlqpwnfxvKJMN [facility] AmbulatoryStart: 09-12-2024 End: 77-86-2563Mqzgoz Luna Domingo MD Work Phone: [facility] [place] [facility] & Vascular PhysiciansComment on above:Atrial flutter (HCC) (Primary Dx)Start: 08-30-2024 End: 96-19-4183zrnudjlsuhQpvh L SchwabFacility:FT BellevueStart: 08-22-2024 End: 14-45-8993Owwvqigmvtmp / ancillary services managementJeyrn [facility] Medical CenterComment on above:Paroxysmal atrial fibrillation (Multi)Start: 08-22-2024 End: 61-93-3927karpckbqkgTFTNAFKUpstate Golisano [facility] AmbulatoryStart: 08-17-2024 End: 78-10-1652Zorcmsxdud Narayan Block TECHNOLOGISTSouthern [place] [facility] Center Heart & Vascular PhysiciansComment on above:NSTEMI (non-ST elevated myocardial infarction) (HCC) (Primary Dx); Hypertension, unspecified typeStart: 08-15-2024 End: 45-40-3621vrricgyfmnEbep L SchwabFacility:[facility] [place]vueStart: 08-09-2024 End: 42-70-6127lqsfaawcfbLrnv L SchwabFacility:[facility] BellevueStart: 08-08-2024 End: 21-98-9248Abswab outpatient visit 25 minutesTroy Washington MD Work Phone: uh [facility] Health PardeeComment on above:Paroxysmal atrial fibrillation (Multi) (Primary Dx); Myocardial infarction type 2 (Multi)Start: 08-08-2024 End: 54-94-7797fmcborxqqlKQIFSZAFlint River Hospital AmbulatoryStart: 07-15-2024 End: 07-62-1750sxqwjtpcxoTtgo L SchwabFacility:[facility] [place]vueStart: 07-11-2024 End: 00-24-5177cdahrhowldXwic L SchwabFacility:[facility] [place]vueStart: 07-07-2024 End: 48-53-8661Wwpjnwezg department patient visitJodi Cristiane ASSISTED SALES REPRESENTATIVE-C Work Phone: [facility] Work Phone: Start: 07-05-2024 End: 39-87-6854Cfilwrfwxg and management of inpatientJodi Cristiane ASSISTED SALES REPRESENTATIVE-C Work Phone: [facility] [place] [facility] Work Phone: Start: 04-11-2024 End: 11-57-8866iismjkbbzaHeao L SchwabFacility:[facility] [place]vueStart: 03-28-2024 ambulatoryJodi L SchwabFacility:[facility] [place]vueStart: 03-21-2024 End: 82-16-4514Lyogcn flowsheetNatalie A Felter HOG HANDLER-PENS AND PENCILS REPAIRER Work Phone: [facility]oms [facility] DERMStart: 03-21-2024 End: 52-34-8922Izpbcf flowsheetNatalie A Felter HOG HANDLER-PENS AND PENCILS REPAIRER Work Phone: noms [facility] DERMStart: 03-21-2024 End: 55-37-2090Jvepoo outpatient visit 15 minutesNatalie A Felter HOG HANDLER-[employer]ENS AND PENCILS REPAIRER Work Phone: noms [facility] DERMComment on above:Psoriasis vulgaris (CMS/HCC); Rash and other nonspecific skin eruptionStart: 03-21-2024 End: 50-37-7810fuuhxtjrhqEPACXSP A FELTERNot AvailableStart: 01-25-2024 End: 82-06-4127Bykegd flowsheetNatalie A Felter HOG HANDLER-PENS AND PENCILS REPAIRER Work Phone: noms [facility] DERMStart: 01-25-2024 End: 36-20-8840Hpvvlk flowsheetNatalie A Felter HOG HANDLER-PENS AND PENCILS REPAIRER Work Phone: noms [facility] DERMStart: 01-25-2024 End: 23-34-1525Ltfdaz outpatient visit 25 minutesNatalie A Felter HOG HAND[employer]ER-PENS AND PENCILS REPAIRER Work Phone: noms [facility] DERMComment on above:Seborrheic keratosis; Lentigines; Melanocytic nevus of trunk; Seborrheic keratosis, inflamed; Psoriasis vulgaris (CMS/HCC); Rash and other nonspecific skin eruption; Neoplasm of unspecified behavior of bone, soft tissue, and skinStart: 01-25-2024 End: 97-29-9789voxavdplomCCIVDES A FELTERNot AvailableStart: 07-03-2023 End: 65-86-1432ddeyrjzkvlGVOTPTB A FELTERNot AvailableStart: 06-15-2023 End: 04-27-8546vdkgrkhwpeKGEFKME A FELTERNot AvailableStart: 05-12-2022 End: 25-93-3242ifxzmrkpzoAZ KIM E KNIGHTFacility:O7Kgahj: 11-15-2021 End: 33-33-1928savjajwggcDYAmelie LEALFacility:H1 Procedures DateProcedureProcedure DetailPerforming ClinicianStart: 82-43-6403Fyj routine ecg w/least 12 lds w/i&Ke Domingo MD Work Phone: Start: 07-05-0312Yxr routine ecg w/least 12 lds w/i&r Juan Domingo MD Work Phone: Start: 46-25-0742Vaphi chest X-rayLe Cristiane ASSISTED SALES REPRESENTATIVE-C Work Phone: Start: 74-45-3244DZ LHC & COR Angio (Right)Letrang Huitron ASSISTED SALES REPRESENTATIVE-C Work Phone: Start: 51-39-0596Pzkd Cristiane ASSISTED SALES REPRESENTATIVE-C Work Phone: Start: 99-49-8881XtjuszwoptfNsjjpo Jose L [place] Work Phone: Start: 70-16-4252KNORSKWEXHE SKIN LESIONNatalie A Pérez HOG HANDLER-PENS AND PENCILS REPAIRER Work Phone: Start: 01-25-2024 End: 76-02-1348YXTE / NAIL BIOPSYNatalie A Pérez HOG HANDLER-PENS AND PENCILS REPAIRER Work Phone: Start: 00-11-1764YoloxpuysgxIlobnij Pérez HOG HANDLER-PENS AND PENCILS REPAIRER Work Phone: Plan of Treatment DateCare ActivityDetailAuthorStart: 11-27-5922DNLNX-19 Vaccine (2024- season)COVID-19 Vaccine ( season)[facility]: 10-34-6130Nvgfenkib for malignant neoplasm of breastMammogramOhioHealthStart: 03-21-2025 End: 49-98-3763Wkqkoyp encounter lvfeayxvb90/04/2025 10:35 AM EST Office Visit [facility] [address] [place] [address] Alecia Ortez HOG HANDLER-PENS AND PENCILS REPAIRER [address] [place] [address] [facility]MStart: 03-20-2025 End: 56-86-7240Yejvahf encounter xowbyszto62/03/2025 10:00 AM EST Office Visit [facility] [address] [place] [phone] Juan Domingo MD [address] [place] [address] [facility] [place] [facility] PhysiciansStart: 21-22-8798KEQYW-19 Vaccine ( season)COVID- 19 Vaccine ( season)[facility]Start: 47-89-3264Zmxnqvfip vaccination Influenza Vaccine (#1)[facility]Start: 12-23-2024 End: 22-85-7503Viqtcwa encounter rmwybxvyd79/08/2025 9:00 AM EDT Office Visit [address] [phone] Troy Washington MD [address] [facility] [address], [address] [address] [facility]: 09-23-2024 End: 65-98-8074Fcmhdyj encounter /09/2025 9:30 AM EDT Office Visit [facility] [address] [facility] [address] [place] [address] Le Huitron, PENS AND PENCILS REPAIRER [address] [place] [address] Juan Domingo MD [address] [place] [address] [facility] [place] [facility] PhysiciansStart: 22-10-9922EZHIX-19 Vaccine ( season)COVID-19 Vaccine ( season)[facility]Start: 08-22-2024 End: 77-25-0501BUK 12 [facility] Work Phone: Comment on above:Expected: 08/22/2024 (Approximate), Expires: 08/08/2025Start: 08-22-2024 End: 68-37-1742Ciyhklzetyrr / ancillary services zyypiuvyfr44/07/2025 9:00 AM EDT Ancillary Procedure [facility] [address] [place] [address] DI [facility] PardeeStart: 05-57-2733RhbesboiyLouis Stokes Cleveland VA Medical Centertart: 81-94-7961NnoszhfmhLouis Stokes Cleveland VA Medical Centertart: 07-05-2024 Hospital admissionLouis Stokes Cleveland VA Medical Centertart: 03-21-2024 End: 68-01-2871Kmspmzl encounter bqmjuvrdq67/04/2024 10:40 AM EST Office Visit [facility] [address] [place] [phone] Alecia Ortez, HOG HANDLER-PENS AND PENCILS REPAIRER [address] [place] [address] ArrivedNOMS SWS DERMComment on above: ArrivedStart: 02-15-2024 End: 96-59-0160Esftqlf encounter /30/2024 9:35 AM EDT Office Visit [facility] [address] [place] [phone] Alecia Ortez, HOG HANDLER-PENS AND PENCILS REPAIRER [address] [place] [address] [facility]MStart: 01-25-2024 End: 12-18-0669Hcxujwd encounter wuuwdxoru36/09/2024 9:55 AM EDT Office Visit [facility] [address] [place] [phone] Alecia Ortez, HOG HANDLER-PENS AND PENCILS REPAIRER [address] [place] [address] ArrivedNOMS SWS DERMComment on above: ArrivedStart: 49-41-4015MBZXA-19 Vaccine ( season)COVID-19 Vaccine ( season)[facility] [place] [facility] CenterStart: 22-58-7230FDYMK-19 Vaccine ( season)COVID-19 Vaccine ( season)[facility] Start: 85-12-8765Avgqljtmh vaccinationInfluenza Vaccine (#1)[facility] Start: 93-20-5528Axrimthwu for malignant neoplasm of colonNOMS HealthcareStart: 99-92-3898Cwqcltapwqxa Vaccine: 50+ Years (2 of 2 - PCV20 or PCV21)Pneumococcal Vaccine: 50+ Years (2 of 2 - PCV20 or PCV21)[facility]Start: 03-14-2021 Pneumococcal Vaccine: 65+ Years (2 of 2 - PPSV23 or PCV20)Pneumococcal Vaccine: 65+ Years (2 of 2 - PPSV23 or PCV20)[facility]Start: 09-32-0588Ypgecklicsdu Vaccine: Age 50+ (2 of 2 - PPSV23)Pneumococcal Vaccine: Age 50+ (2 of 2 - PPSV23)[facility]HealthStart: 55-40-4597Jlxvacusjkvi vaccinationPneumococcal Vaccine (2 of 2 - PPSV23)[facility] CenterStcollison: 60-24-0548Vyyc risk assessmentFalls Risk AssessmentOhioHealthStart: 16-16-1777Fopjlpsdbjz Syncytial Virus Immunization: Risk, 60-74 Risk, or 75+ (1 - Risk 60-74 years 1- dose series)Respiratory Syncytial Virus Immunization: Risk, 60-74 Risk, or 75+ (1 - Risk 60-74 years 1-dose series)[facility] [place] [facility] CenterStart: 29-94-4991PRL High Risk: (Elderly (60+) or Population) (1 - Risk 60-74 years 1-dose series)RSV High Risk: (Elderly (60+) or Population) (1 - Risk 60-74 years 1-dose series)[facility]: 17-96-9858GWM Vaccines (1 - Risk 60-74 years 1-dose series)RSV Vaccines (1 - Risk 60-74 years 1-dose series)[facility]Start: 14-02-5020Accznemaw for malignant neoplasm of colonFlexible sigmoidoscopyOhioHealthStart: 11-36-7738Sweweeijg for malignant neoplasm of breastMammogramNOMS HealthcareStart: 09-76-7977BEaA/Tdap/Td Vaccines (1 - Tdap)DTaP/Tdap/Td Vaccines (1 - Tdap)[facility] Start: 94-52-7114Xxskeqcwbnk for diphtheria, pertussis, and tetanus Tetanus/Diphtheria/Pertussis (1 - Tdap)[facility] [place] [facility] CenterStart: 13-07-4160Yqorwnao mellitus screeningDiabetes ScreeningUniversity Hospitals Samaritan Medical CenterStcollison: 47-96-9185Gvkayyjci C screeningHepatitis C ScreeningTrinity Health System East Campus: 65-64-4618Jrwbhjlzfu screening using PHQ-9 (Patient Health Questionnaire 9) scoreDepression Screening/Follow-Up (PHQ-2/9)[facility] [place] [facility] CenterStart: 03-18-1957Medicare Wellness VisitMedicare Wellness VisitOhioSelect Medical Specialty Hospital - CincinnatiStart: 02-67-7438Xztvu panelLipid PanelUniversity Hospitals Samaritan Medical CenterStcollison: 03-18-1954Medicare Annual Wellness VisitMedicare Annual Wellness Visit (AWV) [facility]: 08-35-6154Yvmmklmda for malignant neoplasm of colonNOBoone Hospital CenterStart: 89-39-2965Cghiymfgd for osteoporosis [facility]: 40-25-6488Wdmnago vaccinationTetanus: Every 10yrsOhioHealth End: lead ECGECG 12 Lead ECG Routine Atrial flutter (HCC) 1 Occurrences starting 09/12/2024 until 09/12/2027[facility] Work Phone: comment on above:1 Occurrences starting 09/12/2024 until 09/12/2027 End: lead ECGECG 12 Lead ECG Routine Atrial flutter (HCC) AVNRT (AV dejuan re-entry tachycardia) 3 Occurrences starting 03/14/2025 until 09/12/2026 [facility] Work Phone: comment on above:3 Occurrences starting 03/14/2025 until 09/12/2026 End: 98-33-0628Thocj metabolic 2000 panel - Serum or PlasmaBasic Metabolic Panel Lab Routine Atrial flutter (HCC) AVNRT (AV dejuan re-entry tachycardia) Pre-ope rative cardiovascular examination 1 Occurrences starting 03/20/2025 until 03/20/2026OhioHealthComment on above:1 Occurrences starting 03/20/2025 until 03/20/2026 End: 78-36-6574HBG panel - Blood by Automated countCBC Lab Routine Atrial flutter (HCC) AVNRT (AV dejuan re-entry tachycardia) Pre-operative cardiovascular examination 1 Occurrences starting 03/20/2025 until 03/20/2026[facility] Work Phone: comment on above:1 Occurrences starting 03/20/2025 until 03/20/2026Dermatopathology examDermatopathology exam Pathology and Cytology Timed Neoplasm of unspecified behavior of bone, soft tissue, and skin Release Upon Ordering for 1 Occurrences starting 01/25/2024[facility] Work Phone: comment on above:Release Upon Ordering for 1 Occurrences starting 4Patient EducationMount Carmel Health System Ctr Work Phone: Patient referralMount Carmel Health System Ctr Work Phone: Immunizations Immunization DateImmunizationNotesCare KhhtpwnxHjemygba09-54-4114bxzyzfwty virus vaccine, unspecified formulationEugene Jose L [place] Work Phone: [phone]cldvk26-68-1712zbrrxsqsr, seasonal, injectable Troy Washington MD Work Phone: [facility] Work Phone: [phone]soyzrm virus vaccine, unspecified formulationNatalie Pérez HOG HANDLER-PENS AND PENCILS REPAIRER Work Phone: [facility] Payers DatePayer CategoryPayerPolicy [id number] Health [id number] 2021Medicare supplemental policy (as second payer) [id number] 2019Medicare [id number] [id number] 89-89-3328Odqjvqi Health [id number] 2.16.840.1.606514.3.57[id number] 2.16840.1.417548.3.57[id number] 2..840.1.631973.3.57[id number] 2.840.1.361875.3.57[id number] 2.840.1.496627.3.57[id number] 2.840.1.518613.3.579.[id number] 2.16.840.1.170583.3.579.[id number] 2.840.1.746819.3.579.2.620433-71-9710Tnawkjv90004774 2.16840.1.782483.3.579.[id number] 2.840.1.895689.3.579.2.69420-82-2807Uwtlvgb73323851 2.16840.1.208354.3.579.2.83250-40-5912Aautqcd15866139 2.840.1.171490.3.57[id number] 2.16.840.1.563095.3.57[id number] 2.16.840.1.844152.3.579.2.[id number] 2.16.840.1.373890.3.57[id number] 2.16.840.1.850222.3.57[id number] 2.16.840.1.576480.3.579.2.14525-35-0412Ybhgagi18971385 2.16.840.1.801263.3.579.2.7[id number] 2.16.840.1.757484.3.57[id number] 2.16.840.1.713035.3.579.[id number] 2.16.840.1.705943.3.579.2.[id number] 2.16.840.1.341671.3.579.2.05404-68-5329Jknpfao24685198 2.16.840.1.911141.3.579.2.64177-90-4654Nkrbaei49255889 2.16.840.1.179803.3.579.[id number] 2.16.840.1.708685.3.57[id number] 2.16.840.1.461894.3.579.2.727UnknownRegular Qopjbftzh1010656700I 5r20qorv-ls3y-923a-gs65-[id number] 2.16.840.1.802164.3.579.2.830Gbpulzk05061020 2.16.840.1.657924.3.579.2.531 Social History DateTypeDetailFacilityStart: 05-05-2023 End: 97-74-8425Abqtqcl smoking status NHISNever smoked tobaccoNOMS Healthcare Start: 01-25-2024 End: 90-36-2459Pbzqooewu beverage intakeLifetime non-drinker (finding)[facility] HealthcareStart: 01-25-2024 End: 71-21-8036Osfcuog of Social functionNOMS HealthcareStart: 01-25-2024 End: 65-50-4885Fldtacr use panelNOAZ HealthcareStart: 33-46-0614Ixyafph Comment caffeine: 1-2 cups per dayNOAZ HealthcareStart: 82-42-2250Kyo assigned at Not on fileNOAZ HealthcareStart: 07-06-2024 End: 54-33-6232AiwWjhmey (finding)[facility] Centertart: 38-83-9881Olw Assigned At BirthTrinity Health System West Campustart: 08-08-2024 End: 07-21-8823Awkyhch use and exposureSmokeless tobacco non-userUniversity Hospitals Samaritan Medical Center Work Phone: Start: 07-29-2024 End: 00-23-3452Speprulu to SARS-CoV-2 (event)Not sureUnKettering Health Behavioral Medical CenterTobabeaver county memorial [facility] smoking status NHISTobacco smoking consumption unknown [facility]Start: 09-23-2024 End: 14-09-4998Bosbstjrp beverage intakeEx-drinker (finding)[facility] Goals DatePatient GoalDesired Activity/State Functional Status SgzpGfyxnvypjoBmcubuKymvpqwq24-75-0751Outvnotlaa statusPatient at Baseline [facility] Work Phone: Mental Status PffbJgatbrfotcFdnzkyPotvudog83-18-0934Vbspmgpqf functionCognitive Status Patient at BaselineMount Carmel Health System Ctr Work Phone: Clinical Notes 01-25-2024 to 03-20-2025 Note Date & MrpvGnxiZrphzcbg61-80-2016 Instructions* Patient Instructions* Citlali Orellana RN - 03/20/2025 10:33 AM EST Images from the original note were not included. You will be called by [facility] lab staff to schedule your procedure. To reschedule call [phone]. Learning About Catheter Ablation for Heart Problems What is catheter ablation? Catheter ablation is a procedure that treats heart rhythm problems. These problems include atrial fibrillation, supraventricular tachycardia (SVT), atrial flutter, and ventricular tachycardia. Your heart should have a strong, steady beat. That beat is controlled by the heart's electrical system. Sometimes that system misfires. This causes a heartbeat that is too fast and isn't steady. Catheter ablation is a way to get into your heart and fix the problem. Ablation is not surgery. How is catheter ablation done? Your doctor inserts thin tubes called catheters into a blood vessel in your groin. Then your doctorfeeds them into the heart. Wires in the catheters help the doctor find the problem areas. Then he or she uses the wires to send energy to destroy the tiny areas of heart tissue that are causing the problems. It may seem like a bad idea to destroy parts of your heart on purpose. But the areas that are destroyed are very tiny. They should not affect your heart's ability to do its job. You may be awake during the procedure. Or you may be asleep. The doctor will give you medicines to help you feel relaxed and to numb the areas where the catheters go in. You may feel a little uncomfortable, but you should not feel pain. This procedure usually takes 2 to 6 hours. In rare cases, it can take longer. You may stay overnight in the hospital. How long you stay in the hospital depends on the type of ablation you have. What can you expect after catheter ablation? Do not exercise hard or lift anything heavy for a week. You will probably be able to go back to work and to your normal routine in 1 or 2 days. You may have swelling, bruising, or a small lump around the site where the catheters went into yourbody. These should go away in 3 to 4 weeks. You may still have to continue anti-arrhythmic and/or anti-coagulant (blood thinner) medications after the procedure. This is determined case by case basis by your physician. Pre-Procedure Instructions Location: [facility] at [facility]. This is located in the [facility]. Take elevator to 2nd floor and report to the Registration Desk. [address] [place], [place] [address] Blood Work (BMP and CBC): This is required within 30 days of your procedure. Orders have been placed in your chart. Any [facility] laboratory can be used. If you desire to havedone at a location other than [facility] you will need to let your provider's nurse know. The nursewill need to know where to fax orders or can give you a copy of orders to take to desired location.Can use website below to determine [facility] lab location nearest to you. [email or web address] for a location near you. Medications: You may take your scheduled morning medications with a small sip of water. Please bring an accurate medication list to the hospital with you. Please do not assume an accuratelist of medication is on file. HOLD Diltiazem the day before and the day of the procedure HOLD all vitamins, minerals, supplements and kagr-cut-rrpyhbl medications the morning of the procedure If you are diabetic please follow the following instructions: Do not take any oral or pill form diabetic medication the morning of the procedure. Do not take any insulin the morning of the procedure If you take Levemir or Glargine (Lantus) only take half the scheduled dose the night before the procedure. Additional Instructions: Bring photo ID and insurance card No smoking or products containing nicotine for 24 hours prior to your procedure. Please do not eat or drink anything after midnight the night before your procedure. This is considered an outpatient procedure. You will most likely be discharged the same day. You will not be permitted to drive yourself home. Please arrange to have a sales route driver helper upon discharge. Uber/Lyft are not permitted. Before Your Procedure Information Diet and Comfort Equipment/Testing You will be asked to sign a consent form. Tell nurse if you have any allergies or if you might be Up to 2 family members may sit with you until the time of your test Take a bath or shower before you come in for your procedure. Do not apply lotions, perfumes, deodorants. Leave your valuables at home Get a good nights sleep The evening before the procedure, take a shower or bath. You may bring you dentures, hearing aids and eye glasses, but they will be removed prior to the procedure. Once you get to the hospital, you will need to wear a hospital gown and remove all clothing, including undergarments An IV will be started so fluid and medicine maybe given as needed An EKG will be performed If on Coumadin, an INR will be drawn. Blood work may be drawn including test if you have childbearing potential. You will be taken to EP lab on cart. Small EKG pad (electrodes) on your chest so your heart rhythm can be monitored During Your Procedure Information Diet and Comfort Equipment/Testing Your family will be taken to the waiting room when you are taken to the EP Lab A staff member will stay with your during the procedure The EP Lab room maybe chilly. Warm blankets are available if needed Please notify your nurse if you are having pain, discomfort, shortness of breath or need more medication for anxiety Equipment and monitors will be above your head and on the bhat. Medicine will be given to help you relax. You will not be intubated until you are completely asleep from the sedative medication. The Nurse will apply: Two large patches on your chest and back Blood pressure cuff, oxygen sensor, heart monitor and oxygen through a small tube under your nose About the procedure: Your groin area will be draped for privacy and cleansed with an antiseptic solution. Let the staff know if you have an allergy to antiseptics. You will then be covered with a sterile drape The doctor will place a small hollow tube (sheath) into a vein in our groin. Small flexible tubes (catheters) will be inserted through the sheath and guided to your heart. When the procedure is done, the catheters and sheaths will be removed by the nurse. Pressure will be applies to the groin site for 5-10 minutes to make sure there is no bleeding. After Your Procedure Information Diet and Comfort Equipment/Testing The doctor will tell you the results of the procedure and recommended course of treatment The doctor will also update your family in the waiting area You and your family will be escorted back to your nursing unit After 3-4 hours you may be able to be up with assistance. When you are fully awake you may return to your regular diet. You will likely go home the same day, however, it is recommended to prepare for an overnight stay You will remain on a heart monitor until time of discharge. Your IV will stay in until time of discharge. Your nurse will review all medications and activity restrictions up discharge. After Discharge Your nurse will review any specific instructions with you. Have someone available to drive you home after the procedure Due to the sedation and to protect your groin, you are not permitted to drive for 24 hours. If you have bleeding at the groin site, you or someone else apply continuous pressure manual pressure for 20 minutes. If the bleeding stops and the site remains soft and not swollen, apply new band-aid. If the bleeding does not stop continue to apply manual pressure. Contact the squad to be taken to the nearest emergency room. Do not lift more than 10 pounds for 48 hours after the procedure. For the first 24 hours after the procedure , limit or avoid stair climbing. Keep the puncture site in the groin covered with a dry band-aid for 24 hours. The band-aid can thenbe removed and the site left open to air. You may have swelling, bruising, or a small lump around the puncture site. This should go away in 3-4 weeks. You may shower the day after your procedure. Do not take a tube bath, use a hot tub or swimming pool until the puncture site is healed, usually 3-4 days. Most people can be back to work after 24 hours unless otherwise advised by the doctor. Ask your doctor when it is okay to have sex. Do not exercise hard or do any activity that could strain your blood vessels, specifically at the assess puncture site in your groin. Check with your doctor before you take aspirin or anti-inflammatory medicines to reduce pain and swelling. These would include ibuprofen (Advil, Motrin) and naproxen (Aleve). Call your doctor or seek immediate medical care if: You have a fever over 100 degrees You have a fast growing, painful lump at the catheter site. You display signs of infection Increased pain, swelling, warmth or redness at the catheter site. Red streaks leading from the catheter site. Pus draining from the catheter site. Don't hesitate to reach out via the phone number below or MyChart with any questions. ODETTE Castanedacredit representative for Dr. Juan Domingo [facility] [phone] documented in this rnypkljcbVxhwFgpuxa12-02-2835 NoteElectrophysiology Clinic Follow-up Heart & Vascular [facility] 03/20/2025 Juan Domingo MD [address] [facility] [address] Patient: Keely Bragg Date of : 1955 (69 y.o.) PCP: Le Huitron CNP Assessment & Plan Overall, the patient presents today for follow-up evaluation of her history of PSVT. Her EKG demonstrates a sinus rhythm today. She is continuing to have breakthrough episodes of SVT despite diltiazem. We discussed alternative strategies such as catheter ablation. I did go over the procedure, risks, benefits, and alternatives with her and she does wish to proceed with catheter ablation. I will have her hold her diltiazem to day before and day of the procedure. Procedure will be done under conscious sedation. The patient otherwise was noted to have an elevated blood pressure which was unusual for her. Hopefully this is situational. She is not having any symptoms related to her blood pressure at this point. I have asked her to check her blood pressures at home to see if they remain elevated. If so, we may start a diuretic medication for her. Follow-up: No follow-ups on file. Chief Complaint: Follow-up (x 6 mo f/u, recent AVNRT episode in Feb w/ increase in cardizem) Subjective History of Present Illness: Keely Bragg is a 69 y.o. female who presents today for evaluation of her history of PSVT. 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 We have attempted to treat the patient with diltiazem. Patient has had continued recurrences of SVT since she was last seen in September of this year. The racing is mostly a nuisance for her. She has not had significant chest discomfort or change in dyspnea on exertion patterns otherwise. Patient has not had syncope. Objective Tobacco Use History[1] Imaging: I independently reviewed the EKG and agree with the interpretation(s) with the following comments. ECG 12 Lead Final Result by Juan Domingo MD (03/20/2025 1019) HOME Medications: Patient's Medications New Prescriptions No medications on file Previous Medications ALPRAZOLAM (XANAX) 0.25 MG TABLET Take 1 (one) tablet (0.25 mg total) by mouth nightly as needed . DILTIAZEM (CARDIZEM) 60 MG TABLET Take 1 (one) tablet (60 mg total) by mouth 3 (three) times a day . ROPINIROLE (REQUIP) 0.25 MG TABLET Take 1 (one) tablet (0.25 mg total) by mouth nightly . SERTRALINE (ZOLOFT) 100 MG TABLET Take 1 (one) tablet (100 mg total) by mouth daily . Modified Medications No medications on file Discontinued Medications No medications on file Physical Examination: BP (!) 171/91 (BP Location: Left arm, Patient Position: Sitting, BP Cuff Size: Adult) Pulse 65 Ht 5' 2 Wt 120.2 kg (265 lb) BMI 48.47 kg/m No results found for: CHOL , LDLCALC , LDLDIRECT , TRIG , HDL Creatinine clearance cannot be calculated (No successful lab value found.) [1] Tobacco Use Smoking Status Never Smokeless Tobacco Never AUTHENTICATED BY JUAN DOMINGO, ON 03/20/2025 10:35:32[facility] History of Present illness Narrative* Juan Domingo MD - 03/20/2025 10:32 AM EST Electrophysiology Clinic Follow-up Heart & Vascular [facility] 03/20/2025 Juan Domingo MD [address] [facility] [address] Patient: Keely Bragg Date of : 1955 (69 y.o.) PCP: Le Huitron, GENIE Assessment & Plan Overall, the patient presents today for follow-up evaluation of her history of PSVT. Her EKG demonstrates a sinus rhythm today. She is continuing to have breakthrough episodes of SVT despite diltiazem. We discussed alternative strategies such as catheter ablation. I did go over the procedure, risks, benefits, and alternatives with her and she does wish to proceed with catheter ablation. I will have her hold her diltiazem to day before and day of the procedure. Procedure will be done under conscious sedation. The patient otherwise was noted to have an elevated blood pressure which was unusual for her. Hopefully this is situational. She is not having any symptoms related to her blood pressure at this point. I have asked her to check her blood pressures at home to see if they remain elevated. If so, we may start a diuretic medication for her. Follow-up: No follow-ups on file. Chief Complaint: Follow-up (x 6 mo f/u, recent AVNRT episode in Feb w/ increase in cardizem) Subjective History of Present Illness: Keely Bragg is a 69 y.o. female who presents today for evaluation of her history of PSVT. 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 We have attempted to treat the patient with diltiazem. Patient has had continued recurrences of SVT since she was last seen in September of this year. The racing is mostly a nuisance for her. She has not had significant chest discomfort or changein dyspnea on exertion patterns otherwise. Patient has not had syncope. Objective Tobacco Use History[1] Imaging: I independently reviewed the EKG and agree with the interpretation(s) with the following comments. ECG 12 Lead Final Result by Juan Domingo MD (03/20/2025 1019) HOME Medications: Patient's Medications New Prescriptions No medications on file Previous Medications ALPRAZOLAM (XANAX) 0.25 MG TABLET Take 1 (one) tablet (0.25 mg total) by mouth nightly as needed . DILTIAZEM (CARDIZEM) 60 MG TABLET Take 1 (one) tablet (60 mg total) by mouth 3 (three) times a day . ROPINIROLE (REQUIP) 0.25 MG TABLET Take 1 (one) tablet (0.25 mg total) by mouth nightly . SERTRALINE (ZOLOFT) 100 MG TABLET Take 1 (one) tablet (100 mg total) by mouth daily . Modified Medications No medications on file Discontinued Medications No medications on file Physical Examination: BP (!) 171/91 (BP Location: Left arm, Patient Position: Sitting, BP Cuff Size: Adult) Pulse 65 Ht 5' 2 Wt 120.2 kg (265 lb) BMI 48.47 kg/m No results found for: CHOL , LDLCALC , LDLDIRECT , TRIG , HDL Creatinine clearance cannot be calculated (No successful lab value found.) [1] Tobacco Use Smoking Status Never Smokeless Tobacco Never documented in this [id number] NotePatient Education Cardiovascular Supraventricular Tachycardia, Adult Supraventricular tachycardia [...] area that is causing the fast heartbeats (radiofrequencyablation). If you do not have symptoms, you [...] as told by your doctor. ??? Take lvss-hqe-siwmojl and prescription medicines only as told by [...] help right away. Call your local emergency services(more content not included)...[facility] 09-23-2024 NoteElectrophysiology Clinic Consult Heart & Vascular [facility] 09/23/2024 Juan Domingo MD [address] [facility] [address] Patient: Keely Bragg Date of : 1955 (69 y.o.) Referring [...] her flecainide and apixaban. She has a [employer] mobile device which she will use to [...] Care Subjective History of Present Illness: Keely Bragg is a 69 y.o. female who presents today for initial evaluation of reported atrial fibrillation. The patient lives in [facility]. She had experienced tachycardia that led to a brief hospitalization in June. She was felt to have atrial fibrillation and was started on therapeutic anticoagulation with apixaban. She was placed on metoprolol. She was seen in outpatient follow-up with a local on air talent. The patient was experiencing some continued palpitations [...] Final Result by Juan Domingo MD (09/23/2024 9987) HOME Medications: Patient's Medications New Prescriptions DILTIAZEM [...] Never Smokeless Tobacco Never AUTHENTICATED BY JUAN DOMINGO ON 09/23/2024 10:20:40[facility] 09-23-2024 History of Present illness Narrative* Juan Domingo MD - 09/23/2024 10:16 AM EDT Electrophysiology Clinic Consult Heart & Vascular [facility] 09/23/2024 Juan Domingo MD [address] [facility] [address] Patient: Keely Bragg Date of : 1955 (69 y.o.) Referring [...] her flecainide and apixaban. She has a [employer] mobile device whichshe will use to document any future episodes of symptomatic arrhythmias. I feel we can place her ondiltiazem long-acting 180 mg daily for both her history of hypertension and probable PSVT. If she continues to have symptomatic PSVT, we talked about the role of catheter ablation. I will follow- up with the patient in the next 6 months. Follow-up: Return in about 6 months (around 03/26/2025). Chief Complaint: Establish Care Subjective History of Present Illness: Keely Bragg is a 69 y.o. female who presents today for initial evaluation of reported atrial fibrillation. The patient lives in [facility]. She had experienced tachycardia that led to a briefhospitalization in June. She was felt to have atrial fibrillation and was started on therapeutic anticoagulation with apixaban. She was placed on metoprolol. She was seen in outpatient follow- up with a local on air talent. The patient was experiencing some continued palpitations [...] cardiac enzyme elevation. She did undergo a heartcatheterization which did not reveal any evidence of significant epicardial coronary disease. Objective Tobacco Use History[1] Imaging: I independently reviewed the EKG and cardiac catheterization and agree with the interpretation(s) with the following comments. ECG 12 Lead Final Result by Juan Domingo MD (09/23/2024 0903) HOME Medications: Patient's Medications New Prescriptions DILTIAZEM [...] Never Smokeless Tobacco Never documented in this [id number] Instructions* Patient Instructions* Jennifer Sampson RN - 09/23/2024 10:02 AM EDT AVS printed and reviewed. If you have any questions or concerns about your visit today with Dr. Domingo, please contact Milagro PINO [phone] . documented in this [id number] History of Present illness Narrative* Lauren Eastman LPN - 08/22/2024 9:00 AM EDT Patient here for EKG visit ordered by Dr. Washington due to med change for paroxysmal atrial fibrillation. Dr. Washington in suite to review EKG prior to [...] has been in the 90's. To Dr. Washington to read EKG done in office today Vitals: 08/22/24 0904 BP: 142/88 BP Location: Right arm Patient Position: Sitting Pulse: 67 Weight: 119 kg (263 lb 3.2 oz) Height: 1.575 m (5' 2 ) documented in this [facility] Work Phone: 1(249) 486-354003-24-2025 History of Present illness Narrative* Troy Washington MD - 08/08/2024 10:00 AM EDT Chief Complaint Patient presents with Follow-up [facility] [place] 07[place]06 Subjective Keely Bragg is a 69 y.o. female HPI Patient [...] fatigue and tiredness. She continued to have episodeof palpitation and was in the hospital at [place] with an episode of atrial flutter. Assessment [...] the direction and in the presence of MD Josh. Provider Attestation - Scribe documentation All medical record entries made by the Scribe were at my direction and personally dictated by me. Michelet reviewed the chart and agree that the record accurately reflects my personal performance of the history, physical exam, discussion and plan. documented in this encounterUniversity [facility] Work Phone: 1(213) 944-202703-24-2025 Instructions* Patient Instructions* Mariela Cullen LPN - 08/08/2024 10:00 AM [...] Kardia monitor Follow up documented in this encounterUniversity [facility] Work Phone: 1(768) 842-636602-19-2025 [place] [address] Cardiac Catheterization Note Signed Patient: Keely Bragg MR#: [id number] : 1955 Acct:[id number] Age/Sex: 68 / F Adm Date: 5 Loc: Room: [address] [place] [address] Type: ADM IN Attending Dr: Christina Julien MD Copies to: Le Huitron [facility] MD Troy Baker MD~ Cardiac Catheterization (Left) DATE/PROVIDER 07/06/2024 Troy Washington MD INDICATION Acute coronary syndrome with moderate risk for ischemic heart disease with elevated troponin PRE PROCEDURE Cardiology Pre-Op Diagnosis: NSTEMI Frailty Scale: Managing Well ASA Classification: 2 Mallampati Score: Class I PROCEDURE PROCEDURE MEDICATIONS: 2 mg Versed 100 mg fentanyl 25 mg of Benadryl Several doses of intra-arterial nicardipine, 2 doses of intra-arterial nitroglycerin 4000 units of IV heparin Approach: Radial - Rt Left cardiac catheterization Coronary angiography Left left ventriculogram Conscious sedation Cardiac fluoroscopy Hemodynamic measurement PROCEDURE DETAILS After informed consent was obtained by explaining risk, benefit and alternative. Patient signed informed consent. Patient was brought to the [facility] Specialist where theright radial artery was draped and prepared in the regular sterile fashion. By using the micropuncture technique a 6 Mexican arterial sheath was placed after the first stick. Subsequently all catheter advances and exchanges were made over guidewire. Initially I used 5 Mexican JL 3.5 to engage the left main and imaged the left main. I had touse a Jamie wire to advance the catheter into the innominate artery then the catheter was exchanged and a 5 Mexican JR however due to innominate artery spasm I was unable to advance this catheter. We exchanged for a 4 Mexican right Karen with the use of stiff wire the catheter was advanced into the LV hemodynamic measurement and left ventriculogram was performed then the catheter was repositioned but was unable to engage the right coronary artery I exchanged the catheter for a modified right catheter with the use of stiff wire subselective injection of the right coronary artery was taken. There was some spasm of the innominate artery making advancing the catheter outof difficult HEMOSTASIS Obtained by applying quick clot success without complication SUMMARY OF FINDINGS CCS Classification: CCS BP-QTP-ecfxip at rest or w/ any activity Dominance: Right Left Main: Left main is large sized vessel bifurcated LAD and the circumflex is main has nosignificant disease LAD-Prox: The LAD was very large size vessel gives several diagonal branches on request without significant disease CIRC- Prox: Moderate size vessel without significant disease RCA: Large dominant vessel without significant disease LEFT VENTRICLE EF %: 60 Pes planus 30 degree GONZALEZ projection. There was no regional motion abnormality. LVEF around 60% +1 might regurgitation was noted VALVE-AORTIC Aortic Valve Disease: No VALVE-MITRAL Mitral insufficiency grade: 1 HEMODYNAMICS Aortic pressure is 130/80 LV pressure was 130 over 10 with LVEDP of 10 FLUOROSCOPY No abnormality were seen IMPRESSION 1. No hemodynamically significant epicardial coronary artery disease 2. Acute coronary syndrome due to type II myocardial infarction due to supply/demand mismatch associated with atrial fibrillation 3. Normal hemodynamics 4. Normal LV systolic function 5. No significant aortic stenosis or mitral regurgitation RECOMMENDATIONS 1. Aggressive coronaries Modification 2. Treat with low-dose beta-mira and Eliquis to address atrial fibrillation 3. Medical management Documented By: Troy Washington MD 07/06/24 1310 Signed By: 07/06/24 1314 [facility]02-19-2025 Consult note Author Troy Washington [facility] HospitalNote Date/TimeFebruary 2024 11:05am [place] [address] Cardiology Consult Note Signed Patient: Keely Bragg MR#: [id number] : 1955 Acct:[id number] Age/Sex: 68 / F Adm Date: 5 Loc: Room: [address] [place] [address] Type: ADM IN Attending Dr: Christina Julien MD Copies to: MD Troy Frausto CNP, MD~ Cardiology HPI History of Present Illness Consult Date: 07/06/24 Reason for Consult: Cardiac consultation requested for evaluation of elevated troponin and atrial fibrillation HPI: Ms. Bragg is a 68 year old female with no prior cardiac history except hypertension presented to [facility] complaining of dizziness, palpitation and left [...] system is negative other 1 mentioned above COUNT INCLUDES THE [facility] Source: Unable to Obtain Medical History (Updated 07/06/24 @ 00:14 by Akua Ellsworth APRN) Tear meniscus knee surgical intervention Problem List clean-up per request of Phys. EHR Cmte Anxiety Problem List clean-up per request of Phys. EHR Cmte Hypertension Problem List clean-up per request of Phys. EHR Cmte Surgical History (Updated 04/29/23 @ 13:50 by [facility]) H/O breast biopsy Problem List clean-up per [...] x10E3/uL Lymph # (Auto) 1.9 (1.00-4.8) x10E3/uL [place] # (Auto) 0.5 (0.0-0.8) x10E3/uL Eos # [...] and interpreted as documented below: (EKG at [place] showed atrial fibrillation with RVR and nonspecific [...] Add high potency statin Documented By: Troy Washington MD 07/06/24 1059 Signed By: <Electronically signed by MD Troy Washington> 07/06/24 1105 [facility] Work Phone: 1(701) 306-620002-19-2025 [place] [address] Cardiology Consult Note Signed Patient: Keely Bragg MR#: [id number] : 1955 Acct:[id number] Age/Sex: 68 / F Adm Date: 5 Loc: Room: [address] [place] [address] Type: ADM IN Attending Dr: Christina Julien MD Copies to: MD Troy Frausto CNP, MD~ Cardiology HPI History of Present Illness Consult Date: 07/06/24 Reason for Consult: Cardiac consultation requested for evaluation of elevated troponin and atrial fibrillation HPI: Ms. Bragg is a 68 year old female with no prior cardiac history except hypertension presented to [facility] complaining of dizziness, palpitation and left [...] system is negative other 1 mentioned above COUNT INCLUDES THE [facility] Source: Unable to Obtain Medical History (Updated 07/06/24 @ 00:14 by Akua Ellsworth APRN) Tear meniscus knee surgical intervention Problem List clean-up per request of Phys. EHR Cmte Anxiety Problem List clean-up per request of Phys. EHR Cmte Hypertension Problem List clean-up per request of Phys. EHR Cmte Surgical History (Updated 04/29/23 @ 13:50 by [facility]) H/O breast biopsy Problem List clean-up per request of Phys. EHR Cmte History of appendectomy Problem List clean-up per request of Phys. EHR Cmte History of hysterectomy Problem List clean-up per request of Phys. [facility] Family [facility] (Updated 07/06/24 @ 00:15 by [...] x10E3/uL Lymph # (Auto) 1.9 (1.00-4.8) x10E3/uL [place] # (Auto) 0.5 (0.0-0.8) x10E3/uL Eos # [...] and interpreted as documented below: (EKG at [place] showed atrial fibrillation with RVR and nonspecific [...] Add high potency statin Documented By: Troy Washington MD 07/06/24 1059 Signed By: 07/06/24 1105 [facility]02-19-2025 History and physical note Author Akua Ellsworth [facility] Date/TimeFebruary 2024 3:37am [place] [address] Hospitalist H&P Signed Patient: Keely Bragg MR#: [id number] : 1955 Acct:[id number] Age/Sex: 68 / F Adm Date: 5 Loc: 3T Room: [address] [place] [address] Type: ADM IN Attending Dr: Mahendra Garcia MD Copies to: MD Le Pryor CNP, HOG HANDLER~ HPI DATE OF EXAMINATION: 07/05/24 CHIEF COMPLAINT: dizziness, chest pressure HISTORY OF PRESENT ILLNESS: Ms. Bragg is a 68-year-old female with a PMH of HTN, anxiety, RLS that presented to [facility] emergency room for dizziness, lightheadedness, chest pressure and jaw pain. Patient reports that she was grocery shopping whenshe developed dizziness and lightheadedness and some jaw pain. She finished [employer] shopping and drove home sat in the [...] still but not as bad as earlier. [facility] chart review?initial EKG A-fib with RVR. [...] She wastransferred here as inpatient to the [facility] telemetry floor. Review of Systems Review of Systems Review of systems: A 10 point review of systems was obtained, negative unless noted in the HPI or below. COUNT INCLUDES THE [facility] Medical History (Updated 07/06/24 @ 00:14 by Akua Ellsworth APRN) Tear meniscus knee surgical intervention Problem List clean-up per request of Phys. EHR Cmte Anxiety Problem List clean-up per request of Phys. EHR Cmte Hypertension Problem List clean-up per request of Phys. EHR [facility] Surgical History (Updated 04/29/23 @ 13:50 [facility]) H/O breast biopsy Problem List clean-up per request of Phys. EHR Cmte History of appendectomy Problem List clean-up per request of Phys. EHR Cmte History of hysterectomy Problem List clean-up per request of Phys. EHR [facility] Family History (Updated 07/06/24 @ 00:15 by [...] A-fib- converted with 10mg diltiazem IVP in [place] ER - Stat EKG is sinus rhythm- [...] 3 Documented By: Akua Ellsworth APRN 07/05/24 9404 Signed By: <Electronically signed by RAO Ellsworth> 07/06/24 0022 <Electronically signed by Mahendra Garcia MD> 07/06/24 0337 [facility] Work Phone: 1(603) 340-247502-19-2025 History and physical [place] [id number] Hospitalist H&P Signed Patient: Keely Bragg MR#: [id number] : 1955 Acct:[id number] Age/Sex: 68 / F Adm Date: 5 Loc: 3T Room: 5R0094-1 Type: ADM IN Attending Dr: Mahendra Garcia MD Copies to: MD Le Pryor CNP, APRN~ HPI DATE OF EXAMINATION: 07/05/24 CHIEF COMPLAINT: dizziness, chest pressure HISTORY OF PRESENT ILLNESS: Ms. Bragg is a 68-year-old female with a PMH of HTN, anxiety, RLS that presented to [facility] emergency room for dizziness, lightheadedness, chest pressure and jaw pain. Patient reports that she was grocery shopping whenshe developed dizziness and lightheadedness and some jaw pain. She finished [employer] shopping and drove home sat in the [...] still but not as bad as earlier. [facility] chart review?initial EKG A-fib with RVR. [...] She wastransferred here as inpatient to the [facility] telemetry floor. Review of Systems Review of Systems Review of systems: A 10 point review of systems was obtained, negative unless noted in the HPI or below. COUNT INCLUDES THE [facility] Medical History (Updated 07/06/24 @ 00:14 by Akua Ellsworth APRN) Tear meniscus knee surgical intervention Problem List clean-up per request of Phys. EHR Cmte Anxiety Problem List clean-up per request of Phys. EHR Cmte Hypertension Problem List clean-up per request of Phys. EHR [facility] Surgical History (Updated 04/29/23 @ 13:50 [facility]) H/O breast biopsy Problem List clean-up per request of Phys. EHR Cmte History of appendectomy Problem List clean-up per request of Phys. EHR Cmte History of hysterectomy Problem List clean-up per request of Phys. EHR [facility] Family History (Updated 07/06/24 @ 00:15 by [...] A-fib- converted with 10mg diltiazem IVP in [place] ER - Stat EKG is sinus rhythm- [...] 3 Documented By: Akua Ellsworth APRN 07/05/24 1864 Signed By: 07/06/24 0022 07/06/24 0337 [facility]02-19-2025 Evaluation note* Diagnosis Onset Date Resolution Status Admit Date A-fib acuteFebruary 2024 11:26pmNSTEMI (non-ST elevated myocardial infarction) acuteFebruary 2024 11:26pm [facility] Work Phone: 1(945) 305-309011-04-2024 History of Present illness Narrative* Alecia Ortez, RAO-PENS AND PENCILS REPAIRER - 03/21/2024 10:40 AM EST Follow up [...] below: 1. Psoriasis vulgaris (CMS/HCC) Left Mid [place], Right Postauricular Area, Scalp Well-marginated erythematous papules/plaques [...] 1 year, follow up documented in this [facility]09-09-2024 History of Present illness Narrative* [employer] [...] 4. Seborrheic keratosis, inflamed Neck - Anterior [place] and brown stuck on verrucous scaly papule [...] limited to risks of scarring, darker or systems auditor pigmentary changes, recurrence, incomplete removal and infection. [...] Anterior 5. Psoriasis vulgaris (CMS/HCC) Left Mid [place], Right Postauricular Area, Scalp Well-marginated erythematous papules/plaques [...] lesion: 0.7 x 0.6 cm Left Chin [place] pearly papule Lesion biopsy Type of biopsy: [...] psoriasis/ rash follow [facility]* Diagnosis Psoriasis vulgaris (CMS/HCC) Other psoriasis Rash and other nonspecific skin eruption documented in this encounter [facility] HealthcareEvaluation note* Diagnosis Seborrheic keratosis Lentigines Melanocytic nevus of trunk Benign neoplasm of skin of trunk, except scrotum Seborrheic keratosis, inflamed Psoriasis vulgaris (CMS/HCC) Other psoriasis Rash and other nonspecific skin eruption Neoplasm of unspecified behavior of bone, soft tissue, and skin documented in this encounter [facility]* Diagnosis Paroxysmal atrial fibrillation (Multi)- Primary Atrial fibrillation Myocardial infarction type 2 (Multi) documented in this encounter [facility] Work Phone: Evaluation note* Diagnosis NSTEMI (non-ST elevated myocardial infarction) (HCC)- Primary Acute myocardial infarction, subendocardial infarction, episode of care unspecified Hypertension, unspecified type documented in this encounter [facility] note* Diagnosis Paroxysmal atrial fibrillation (Multi) Atrial fibrillation documented in this encounter [facility] Work Phone: Evaluation note* Diagnosis Atrial flutter (HCC)- Primary Atrial flutter documented in this encounter [facility] note* Diagnosis NSTEMI (non-ST elevated myocardial infarction) (HCC) Acute myocardial infarction, subendocardial infarction, episode of care unspecified Hypertension, unspecified type Atrial flutter (HCC) Atrial flutter documented in this encounter [facility] note* Diagnosis Atrial flutter (HCC)- Primary Atrial flutter AVNRT (AV dejuan re-entry tachycardia) documented in this encounter [facility] note* Diagnosis Elevated BP without diagnosis of hypertension- Primary Atrial flutter (HCC) Atrial flutter AVNRT (AV dejuan re-entry tachycardia) Pre-operative cardiovascular examination documented in this encounter [facility] Discharge instructions Additional Instructions DISCHARGE INSTRUCTIONS FOR CARDIAC PERIOPERATIVE EDUCATOR PROCEDURE: Heart Cath The following instructions have [...] cold, numb, blue or white, call the on air talent immediately. 4. ACTIVITY: You are advised to [...] bottle, follow the instructions on the bottle. [facility] is not responsible for incorrect prescription information provided by the patient during their visit. Do not stop your medications without consulting your health care provider. Please take the list with you to your next doctor's appointment.[facility] Work Phone: Hospital Discharge instructions Additional Instructions Take metoprolol as prescribed. Follow-up with your on air talent for ongoing management.[facility] Work Phone: Reason for visit Narrative* Cardiovascular (Routine) - AuthorizedSpecialtyDiagnoses / ProceduresReferred By ContactReferred To Contact Diagnoses Paroxysmal atrial fibrillation (Multi) Procedures ECG 12 Lead Troy Washington MD [address] [place] [id number] Phone: tel: fax: Referral IDStatusReasonStart DateExpiration DateVisits RequestedVisits [id number] [facility] Work Phone: Summary Purpose Family History No Family History Records Found Relationship Condition Age at Onset Recorded Date/T gaurav Not Specified No pertinent family history Unknown motherDeceasedUnknownMalignant neoplasmUnknownHistory of ovarian cancerUnknown sonMalignant neoplasmUnknown Advance Directives No Advanced Directives Records Found [...] and content) DATE CREATED AUTHOR 05/16/2022 [facility] DATE CREATED AUTHOR AUTHOR'S ORGANIZ ATION 03/22/2024 [facility] EPIC DATE CREATED AUTHOR AUTHOR'S ORGANIZ ATION 07/20/2024 [facility] DATE CREATED AUTHOR AUTHOR'S ORGANIZ ATION 08/23/2024 [facility] DATE CREATED AUTHOR AUTHOR'S ORGANIZ ATION 01/03/2025 [facility] DATE CREATED AUTHOR AUTHOR'S ORGANIZ ATION 01/04/2025 [facility] DATE CREATED AUTHOR AUTHOR'S ORGANIZ ATION 03/22/2025 [facility] DATE CREATED AUTHOR AUTHOR'S ORGANIZ ATION 03/25/2025 [facility] DATE CREATED AUTHOR AUTHOR'S ORGANIZ ATION 03/30/2025 [facility] Reason for Visit (unrecogniz ed section and content) ReasonCommentsFollow-upReasonCommentsSkin CheckReasonCommentsFollow-upFr dc 07/06ReasonCommentsEstablish CareSpecialtyDiagnoses / ProceduresReferred By ContactReferred To ContactCardiology Diagnoses NSTEMI (non-ST elevated myocardial infarction) (HCC) Hypertension, unspecified type Cristiane, Le Glendy, PENS AND PENCILS REPAIRER [address] [place] [address] Phone: tel: fax: Juan Domingo MD [address] [place] [address] Phone: tel: fax: Referral IDStatusReasonStart DateExpiration DateVisits RequestedVisits [id number] DateCommentsMedication [id number]/29/2024ReasonCommentsFollow-upx 6 mo f/u, recent AVNRT episode in Feb w/ increase in cardize Care Teams (unrecognized sec tion and content) Team Status: Active Member Role Status Dates [place]ron ASSISTED SALES REPRESENTATIVE-C Primary Care Provider Active Team Status: Inactive Member Role Status Dates [place] ASSISTED SALES REPRESENTATIVE-C Primary Care Provider Active Start: July 05, 2024 End: July 06ndVarsha Ricks ProviderActiveStart: July 05, 2024 End: July 06, 2024MoOliver Aguilarending ProviderActiveStart: July 05, 2024 End: July 06, 2024 Team Status: Inactive Member Role Status Dates [place]ron , ASSISTED SALES REPRESENTATIVE-C Primary Care Provider Active Start: July 07, 2024 End: July 07, 2024Mario Donahue ProviderActiveStart: July 07, 2024 End: July 07, 2024Team MemberRelationshipSpecialtyStart DateEnd Date [place]ron APRN-GENIE [address] [place] [address] PCP - General08/08/24Team MemberRelationshipSpecialtyStart DateEnd Date Le Huitron CNP [address] [place] [address] PCP - GeneralNurse Practitioner08/17/24Team MemberRelationshipSpecialtyStart Date End Date Le [place]ron APRN-[employer] REPAIRER [address] [place] [address] PCP - General3Team MemberRelationshipSpecialtyStart DateEnd Date Le Huitron CNP [address] [place] [address] PCP - GeneralNurse Practitioner08/17/24Team MemberRelationshipSpecialtyStart Date End Date Le Huitron CNP [address] [place] [address] PCP - GeneralNurse Practitioner08/17/24Team MemberRelationshipSpecialtyStart Date End Date Le Huitron CNP [address] [place] [address] PCP - GeneralNurse Practitioner08/17/24Team MemberRelationshipSpecialtyStart Date End Date Le Huitron CNP [address] [place] [address] PCP - GeneralNurse Practitioner08/17/24 Juan Domingo MD [facility] [place] [address] Consulting PhysicianCardichavez Oauxujglegalemxty18/7/25Team MemberRelationship SpecialtyStart DateEnd Date Le Huitron CNP [address] [place] [address] PCP - GeneralNurse Practitioner08/17/24 Juan Domingo MD [address] [facility] [address] [place] [address] Consulting PhysicianCardiac [id number]/7/25 FOR RECORDS PERTAINING TO PATIENTS WHO ARE [...] BE BASED ON THE PRIMARY CLINICAL RECORDS. [employer] [facility]. provides no warranty or guarantee of the accuracy or completeness of information in this document.
[2025-04-17 10:27] LABS: Hematocrit 37.4 % (36.0-48.0); Hemoglobin 12.2 g/dL (12.0-16.0); Immature Granulocytes Abs Auto 0.01 10^3/uL (0.00-0.03); Immature Granulocytes Pct Auto 0.2 % (0.0-0.5); Lymphocytes Absolute Auto 1.7 10^3/uL (1.2-3.8); Mean Corpuscular HGB Conc 32.6 g/dL (29.9-35.2); Mean Corpuscular Hemoglobin 27.6 pg (26.7-34.0); Mean Corpuscular Volume 84.6 fL (81.0-99.0); Platelet Count 164 10^3/uL (150-450); Red Blood Count 4.42 10^6/uL (4.20-5.40); White Blood Count 5.7 10^3/uL (4.0-11.0)
[2025-04-17 10:28] LABS: Anion Gap 11.1; Blood Urea Nitrogen 12.0 mg/dL (7.0-18.0); Calcium 8.8 mg/dL (8.5-10.1); Carbon Dioxide 29.0 mmol/L (21.0-32.0); Chloride 104 mmol/L (98-107); Estimated GFR (African America >60 (>=60 mL/min/1.73m^2); Estimated GFR (Non-African Ame >60 (>=60 mL/min/1.73m^2); Glucose 100 mg/dL (74-106); Potassium 4.1 mmol/L (3.5-5.1); Sodium 140 mmol/L (136-145)
== END 2025-04-17 09:19 | disposition home or self-care (01) ==
LOC: LAB 09:20
PROVIDERS: PCP Family Medicine
DX: Z01.810 Encounter for preprocedural cardiovascular examination (principal); I48.92 Unspecified atrial flutter; I47.19 Other supraventricular tachycardia
CPT/HCPCS: 36415; 80048; 85025